=== PATIENT | female | born 1970 | race Hispanic/Latino ===

== ENCOUNTER 2016-12-17 15:52 | Emergency (ER) | payer BC ==
[2016-12-17 15:53] VITALS: BMI 23.0
[2016-12-17 15:57] VITALS: BP 133/62; PULSE 82; RESP 18; TEMP 98.5; O2SAT 99
--- NOTE | 2016-12-17 16:18 | ED PDOC ---
HPI: Skin/Bite Injury Time Seen by Provider: 12/17/16 16:05 Chief Complaint (Nursing): Abnormal Skin Integrity Chief Complaint (Provider): Abnormal Skin Integrity History Per: Patient History/Exam Limitations: no limitations Onset/Duration Of Symptoms: Days Current Symptoms Are (Timing): Still Present Additional Complaint(s): 46 y/o female presents to the emergency department with a possible abscess located on the right lower side of the back that began about 1 1/2 weeks ago. States she saw Dr. Anguiano on 12/12/2016, who said it was a cyst. Patient was prescribed Amox-Clav 875-125mg and told to return on 12/19/2016 for drainage of the area but pain is too severe. Reports only taking Tylenol for the relief of symptoms because history of ulcers prevents her from taking anything else. Denies any further medical complaints. PMD: Dr. Silvio Dee MD Past Medical History Reviewed: Historical Data, Nursing Documentation, Vital Signs Vital Signs: Last Vital Signs Temp 98.5 F 12/17/16 15:55 Pulse 82 12/17/16 15:55 Resp 18 12/17/16 15:55 BP 133/62 12/17/16 15:55 Pulse Ox 99 12/17/16 16:26 - Medical History PMH: Anemia, Migraine Denies: Chronic Kidney Disease - Surgical History Surgical History: No Surg Hx - Family History Family History: States: Unknown Family Hx - Home Medications Home Medications: Ambulatory Orders Medication Instructions Recorded traMADol [Ultram] 50 mg PO Q6H PRN #15 tab 12/17/16 - Allergies Allergies/Adverse Reactions: Allergies Allergy/AdvReac Type Severity Reaction Status Date / Time No Known Allergies Allergy Verified 12/17/16 15:55 Review of Systems ROS Statement: Except As Marked, All Systems Reviewed And Found Negative ( Abscess on the right lower back) Skin: Positive for: Other Physical Exam - Reviewed Nursing Documentation Reviewed: Yes Vital Signs Reviewed: Yes - Physical Exam Appears: Positive for: Non-toxic, No Acute Distress Head Exam: Positive for: ATRAUMATIC, NORMAL INSPECTION, NORMOCEPHALIC Skin: Positive for: Normal Color, Warm, Dry Neck: Positive for: Normal, Supple Back: Positive for: Other (3cm x 6cm indurated area of the right lower side of the back with tenderness. No surrounding erythema. ). Negative for: Normal Inspection Neurologic/Psych: Positive for: Alert, Oriented - ECG O2 Sat by Pulse Oximetry: 99 (RA) Pulse Ox Interpretation: Normal Medical Decision Making Medical Decision Making: Time: 16:05 Initial Impression: Abscess Initial Plan: --Tramadol 100 mg PO - Unable to take because patient is driving. --Patient was advised that Tramadol would not interfere or affect gastric ulcers. Pt has appointment in 2 days with PMD who prescribed antibiotic for her "cyst". Scribe Attestation: Documented by Vi Lr, acting as a scribe for Estefani Oquendo PA-C. Provider Scribe Attestation: All medical record entries made by the Scribe were at my direction and personally dictated by me. I have reviewed the chart and agree that the record accurately reflects my personal performance of the history, physical exam, medical decision making, and the department course for this patient. I have also personally directed, reviewed, and agree with the discharge instructions and disposition. Disposition - Clinical Impression Clinical Impression: Abscess - Patient ED Disposition Is Patient to be Admitted: No Counseled Patient/Family Regarding: Diagnosis, Need For Followup, Rx Given - Disposition Referrals: [facility] [Outside] Disposition: Routine/Home Disposition Time: 16:36 Condition: GOOD Additional Instructions: Warm compresses every few hours. Follow-up with PMD Sunday. Prescriptions: traMADol [Ultram] 50 mg PO Q6H PRN #15 tab PRN Reason: Pain Instructions: Abscess (ED) Forms: [facility] School/Work Excuse
== END 2016-12-17 16:37 | disposition home or self-care (01) ==
LOC: H.ER 15:52
DX: L02.212 Cutaneous abscess of back [any part, except buttock and flank] (principal)

== ENCOUNTER 2017-09-21 06:49 | Inpatient (IN) | payer BC ==
[2017-09-21 06:49] VITALS: BMI 23.0
--- NOTE | 2017-09-21 07:50 | ED PDOC ---
Syncope/Near Syncope/Dizziness Time Seen by Provider: 09/21/17 07:14 Chief Complaint (Nursing): Syncope Chief Complaint (Provider): Syncope History Per: Patient History/Exam Limitations: no limitations Onset/Duration Of Symptoms: Sudden Onset Current Symptoms Are (Timing): Still Present Additional Complaint(s): 47 year old female with medical history of anemia, migraine and hypercholesterolemia, presents to the emergency department for sudden onset of near syncope associated with room spins, vomiting, headaches and abdominal pain prior to arrival. Denied any bloody stools or prior episodes. Patient noted to have vomited once in ED. PMD: Silvio Dee MD Past Medical History Reviewed: Historical Data, Nursing Documentation, Vital Signs Vital Signs: Last Vital Signs Temp 98.2 F 09/21/17 06:57 Pulse 69 09/21/17 07:03 Resp 14 09/21/17 07:03 BP 157/91 H 09/21/17 07:03 Pulse Ox 99 09/21/17 07:03 - Medical History PMH: Anemia, Gastrointestinal Ulcer, Migraine Denies: Chronic Kidney Disease - Surgical History Surgical History: No Surg Hx - Family History Family History: States: Unknown Family Hx - Social History Current smoker - smoking cessation education provided: No Ex-Smoker (has not smoked in the last 12 months): No Alcohol: None Drugs: Denies - Home Medications Home Medications: Ambulatory Orders Medication Instructions Recorded traMADol [Ultram] 50 mg PO Q6H PRN #15 tab 12/17/16 - Allergies Allergies/Adverse Reactions: Allergies Allergy/AdvReac Type Severity Reaction Status Date / Time No Known Allergies Allergy Verified 12/17/16 15:55 Review of Systems ROS Statement: Except As Marked, All Systems Reviewed And Found Negative Gastrointestinal: Positive for: Vomiting, Abdominal Pain. Negative for: Hematochezia Neurological: Positive for: Headache, Dizziness (with spins) Physical Exam - Reviewed Nursing Documentation Reviewed: Yes Vital Signs Reviewed: Yes - Physical Exam Appears: Positive for: Uncomfortable Head Exam: Positive for: ATRAUMATIC, NORMAL INSPECTION, NORMOCEPHALIC Skin: Positive for: Pallor. Negative for: Normal Color Eye Exam: Positive for: Normal appearance, EOMI, PERRL. Negative for: Nystagmus ENT: Positive for: Normal ENT Inspection, Pharynx Is (within normal limits), TM Is/Are (clear bilaterally) Neck: Positive for: Normal, Supple Cardiovascular/Chest: Positive for: Regular Rate, Rhythm, Chest Non Tender. Negative for: Tachycardia Respiratory: Positive for: Normal Breath Sounds, Decreased Breath Sounds. Negative for: Respiratory Distress Gastrointestinal/Abdominal: Positive for: Normal Exam, Soft. Negative for: Tenderness Extremity: Positive for: Normal ROM (upper/lower). Negative for: Pedal Edema ( bilateral) Neurologic/Psych: Positive for: Alert. Negative for: Motor/Sensory Deficits, Aphasia - Laboratory Results Result Diagrams: 09/21/17 07:45 09/21/17 07:45 - ECG O2 Sat by Pulse Oximetry: 99 (RA) Pulse Ox Interpretation: Normal Medical Decision Making Medical Decision Making: Initial Impression: Near syncope Initial Plan: * CT head without contrast * EKG * BMP * Urine * Urine dipstick * CBC * PTT * PT * Famotidine 30mg IVP * Morphine 2mg IV * Zofran 4mg IVP Time: 904 --CT head FINDINGS: There is no hemorrhage. No edema, midline shift or mass effect is noted. There is normal yang white differentiation. Ventricles, cisterns and sulci are normal for age. Calvarium is unremarkable. Included paranasal sinuses and mastoids are clear. IMPRESSION: No acute cerebral hemorrhage or edema. Scribe Attestation: Documented by Angela Mason, acting as a scribe for Jennifer Barber MD. Provider Scribe Attestation: All medical record entries made by the Scribe were at my direction and personally dictated by me. I have reviewed the chart and agree that the record accurately reflects my personal performance of the history, physical exam, medical decision making, and the department course for this patient. I have also personally directed, reviewed, and agree with the discharge instructions and disposition. Despite all meds give for headache, nausea and dizziness, patient remains symptomatic. is distraught and is suggesting evaluation at another institution. Will admit to Dr. Alejo for intractible dizziness. Disposition - Clinical Impression Clinical Impression: Severe dizziness, Intractable headache - Patient ED Disposition Is Patient to be Admitted: Yes Doctor Will See Patient In The: Hospital - Disposition Disposition: Transfer of Care Disposition Time: 11:00 Condition: GUARDED Forms: [facility] (Ukrainian) - Pt Status Changed To: Hospital Disposition Of: Observation - POA Present On Arrival: None
[2017-09-21 07:59] LABS: BASO # 0.1 K/uL (0.0-0.2); BASO % 0.3 % (0.0-2.0); EOS # 0.1 K/uL (0.0-0.7); EOS % 0.5 % (0.0-4.0); LYMPH # 1.7 K/uL (1.0-4.3); LYMPH % 9.6 % (20.0-40.0); MEAN CELL VOLUME 68.3 fl (81.0-99.0); MEAN CORPUSCULAR HEMOGLOBIN 20.8 pg (27.0-31.0); MEAN CORPUSCULAR HGB CONC 30.5 g/dL (33.0-37.0); MEAN PLATELET VOLUME 7.8 fl (7.2-11.7); MONO # 0.9 K/uL (0.0-0.8); MONO % 4.9 % (0.0-10.0); NEUT # 15.5 K/uL (1.8-7.0); NEUT % 84.7 % (50.0-75.0); PLATELET COUNT 491 K/uL (130-400); RBC 4.32 Mil/uL (3.80-5.20); RED CELL DISTRIBUTION WIDTH 17.7 % (11.5-14.5); WHITE BLOOD COUNT 18.3 K/uL (4.8-10.8)
[2017-09-21 08:08] LABS: PROTHROMBIN TIME 11.3 Seconds (9.8-13.1)
[2017-09-21 08:10] LABS: BLOOD UREA NITROGEN 10 mg/dl (7-17); CALCIUM 9.5 mg/dL (8.4-10.2); GFR AFRICAN-AMERICAN > 60; GFR NON-AFRICAN AMERICAN > 60
--- NOTE | 2017-09-21 09:05 | CT ---
EXAM: CT Head Without Intravenous Contrast EXAM DATE/TIME: 09/21/2017 7:39 AM CLINICAL HISTORY: 47 years old, female; Pain; Headache; Tension; Additional info: Severe WRIGHT TECHNIQUE: Axial computed tomography images of the head/brain without intravenous contrast. All CT scans at this facility use one or more dose reduction techniques, viz.: automated exposure control; ma/kV adjustment per patient size (including targeted exams where dose is matched to indication; i.e. head); or iterative reconstruction technique. Coronal and sagittal reformatted images were created and reviewed. COMPARISON: CT - HEAD W/O CONTRAST 2015-11-26 16:11 FINDINGS: There is no hemorrhage. No edema, midline shift or mass effect is noted. There is normal yang white differentiation. Ventricles, cisterns and sulci are normal for age. Calvarium is unremarkable. Included paranasal sinuses and mastoids are clear. IMPRESSION: No acute cerebral hemorrhage or edema.
[2017-09-21 10:30] LABS: ANISOCYTOSIS MODERATE; LYMPHOCYTE 9 % (20-50); MICROCYTOSIS SLIGHT; MONOCYTE 4 % (0-10); NEUTROPHIL 87 % (42-75); OVALOCYTES SLIGHT; PLATELET ESTIMATE NORMAL (NORMAL); TOTAL CELLS COUNTED 100
[2017-09-21 10:31] LABS: HYPOCHROMIC SLIGHT; LARGE PLATELETS PRESENT; TEARDROP CELLS SLIGHT
--- NOTE | 2017-09-21 13:12 | CARD ---
APPROVED REPORT EKG Measurement Heart [id number] <Conclusion> Sinus rhythm with premature atrial complexes Otherwise normal ECG
--- NOTE | 2017-09-21 13:40 | MRI ---
PROCEDURE: MRI BRAIN WITHOUT CONTRAST HISTORY: dizziness COMPARISON: Comparison made with prior CT scan of the brain dated 09/21/2017 TECHNIQUE: Multiplanar, multisequence MR images of the brain were obtained without intravenous contrast enhancement. FINDINGS: HEMORRHAGE: Acute parenchymal, subarachnoid or extra-axial hemorrhage. DWI: There are 2 tiny foci of restricted diffusion in the left occipito parietal watershed zone and tiny focus of restricted diffusion left cerebellum left cerebellum consistent with tiny acute infarct changes. BRAIN PARENCHYMA: No mass effect or edema. No atrophy or chronic microvascular ischemic changes. VENTRICLES: No obstructive hydrocephalus. CRANIUM: No acute calvarial fractures. ORBITS: Orbits and contents unremarkable. PARANASAL SINUSES/MASTOIDS: Clear VASCULAR SYSTEM: Visualized major vascular flow voids at skull base are patent. OTHER FINDINGS: None. IMPRESSION: There are 2 tiny foci of restricted diffusion left occipito parietal watershed zone and with tiny focus of similar signal left cerebellum consistent with tiny acute infarcts. Findings discussed with Dr. Barber approximately 1:25 p.m. with written down and read back verification.
--- NOTE | 2017-09-21 16:06 | CP.PCM.HP ---
Past Patient History - Past Medical History & Family History Past Medical History?: Yes - Past Social History Smoking Status: Never Smoked - CARDIAC Hx Cardiac Disorders: Yes (SEVERE SINUS BRADYCARDIA PRESENTLY BEING EVALUATED BY PCP) - PULMONARY Hx Respiratory Disorders: No - NEUROLOGICAL Hx Migraine: Yes - HEENT Hx Epistaxis: Yes - RENAL Hx Chronic Kidney Disease: No - ENDOCRINE/METABOLIC Hx Endocrine Disorders: No - HEMATOLOGICAL/ONCOLOGICAL Hx Anemia: Yes - INTEGUMENTARY Hx Dermatological Problems: No - MUSCULOSKELETAL/RHEUMATOLOGICAL Hx Falls: No - GASTROINTESTINAL Hx Gastrointestinal Disorders: Yes Hx Ulcer: Yes - GENITOURINARY/GYNECOLOGICAL Hx Genitourinary Disorders: No - PSYCHIATRIC Hx Psychophysiologic Disorder: No Hx Substance Use: No - SURGICAL HISTORY Hx Surgeries: Yes Hx Tubal Ligation: Yes - ANESTHESIA Hx Anesthesia: Yes Hx Anesthesia Reactions: No Hx Malignant Hyperthermia: No Has any member of the family had a problem w/ anesthesia?: No Meds Allergies/Adverse Reactions: Allergies Allergy/AdvReac Type Severity Reaction Status Date / Time No Known Allergies Allergy Verified 12/17/16 15:55 Results - Vital Signs Recent Vital Signs: Last Vital Signs Temp 98.5 F 09/21/17 15:58 Pulse 72 09/21/17 15:58 Resp 18 09/21/17 15:58 BP 160/89 H 09/21/17 15:58 Pulse Ox 97 09/21/17 15:58 - Labs Result Diagrams: 09/21/17 07:45 09/21/17 07:45 Labs: Laboratory Results - last 24 hr 09/21/17 09/21/17 09/21/17 07:45 07:45 07:45 WBC 18.3 H D RBC 4.32 Hgb 9.0 L Hct 29.5 L MCV 68.3 L D MCH 20.8 L MCHC 30.5 L RDW 17.7 H Plt Count 491 H MPV 7.8 Neut % (Auto) 84.7 H Lymph % (Auto) 9.6 L [place] % (Auto) 4.9 Eos % (Auto) 0.5 Baso % (Auto) 0.3 Neut # (Auto) 15.5 H Lymph # (Auto) 1.7 [place] # (Auto) 0.9 H Eos # (Auto) 0.1 Baso # (Auto) 0.1 Neutrophils % (Manual) 87 H Lymphocytes % (Manual) 9 L Monocytes % (Manual) 4 Platelet Estimate Normal Large Platelets Present Hypochromasia (manual) Slight Anisocytosis (manual) Moderate Microcytosis (manual) Slight Macrocytosis (manual) Slight Tear Drop Cells Slight Ovalocytes Slight PT 11.3 INR 1.0 APTT 19.0 L Sodium 143 Potassium 3.3 L Chloride 102 Carbon Dioxide 24 Anion Gap 20 BUN 10 Creatinine 0.8 Est GFR ( Amer) > 60 Est GFR (Non-Af Amer) > 60 Random Glucose 153 H Calcium 9.5
--- NOTE | 2017-09-21 16:06 | CP.PCM.HP ---
History of Present Illness - History of Present Illness History of Present Illness: 47 yrs old female , patient last Sunday was seen in [facility] with CC Headache and pain LUE, treated with Imitrex , Patient was DD and continue working during the week still having headache , dizziness and pain LUE. Today patient was taking a shower and fell for weakness both lower extremities also Patient with severe headache , vertigo ,vomiting , no LOC , Patient was seen in [facility] ER complaining of severe dizziness and severe pain LUE, initial CT Head negative , MRI Brain acute Left Occipito Parietal infarct and Acute Left Cerebellar infarct, Patient initially AD to Telemetry but after transferred to ICU for close observation,case was discussed with Chair Maker ,Neurologist was consulted. PMHx; Migraine , Patient treated by Double Bass Player that recommended to have GILBERT Present on Admission - Present on Admission Any Indicators Present on Admission: No Review of Systems - Constitutional Constitutional: Headache - EENT Eyes: Other (negative) Ears: Other (negative) Nose/Mouth/Throat: Other (negative) - Cardiovascular Cardiovascular: Other (negative) - Respiratory Respiratory: Other (negative) - Gastrointestinal Gastrointestinal: Nausea, Vomiting - Genitourinary Genitourinary: Other (negative) - Musculoskeletal Musculoskeletal: Myalgias (LUE) - Integumentary Integumentary: Other (negative) - Neurological Neurological: Dizziness, Headaches - Psychiatric Psychiatric: Anxiety - Endocrine Endocrine: Other (negative) - Hematologic/Lymphatic Hematologic: Other (negative) Past Patient History - Past Medical History & Family History Past Medical History?: Yes - Past Social History Smoking Status: Never Smoked Home Situation {Lives}: With Family - CARDIAC Hx Cardiac Disorders: Yes (SEVERE SINUS BRADYCARDIA PRESENTLY BEING EVALUATED BY PCP) - PULMONARY Hx Respiratory Disorders: No - NEUROLOGICAL Hx Migraine: Yes - HEENT Hx Epistaxis: Yes - RENAL Hx Chronic Kidney Disease: No - ENDOCRINE/METABOLIC Hx Endocrine Disorders: No - HEMATOLOGICAL/ONCOLOGICAL Hx Anemia: Yes - INTEGUMENTARY Hx Dermatological Problems: No - MUSCULOSKELETAL/RHEUMATOLOGICAL Hx Falls: No - GASTROINTESTINAL Hx Gastrointestinal Disorders: Yes Hx Ulcer: Yes - GENITOURINARY/GYNECOLOGICAL Hx Genitourinary Disorders: No - PSYCHIATRIC Hx Psychophysiologic Disorder: No Hx Substance Use: No - SURGICAL HISTORY Hx Surgeries: Yes Hx Tubal Ligation: Yes - ANESTHESIA Hx Anesthesia: Yes Hx Anesthesia Reactions: No Hx Malignant Hyperthermia: No Has any member of the family had a problem w/ anesthesia?: No Meds Allergies/Adverse Reactions: Allergies Allergy/AdvReac Type Severity Reaction Status Date / Time No Known Allergies Allergy Verified 12/17/16 15:55 Physical Exam - Constitutional Appears: In Acute Distress - Head Exam Head Exam: NORMAL INSPECTION - Eye Exam Additional comments: nistagmus - ENT Exam ENT Exam: Normal Exam - Neck Exam Neck exam: Positive for: Normal Inspection - Respiratory Exam Respiratory Exam: Clear to Auscultation Bilateral - Cardiovascular Exam Cardiovascular Exam: REGULAR RHYTHM, Systolic Murmur (2/6 LSB Ao radiated to neck vessels) - GI/Abdominal Exam GI & Abdominal Exam: Normal Bowel Sounds, Soft - Extremities Exam Extremities exam: Positive for: tenderness (severe LUE with ROM decreased, with coldness sensation distal L forearm , L hand) - Back Exam Back exam: NORMAL INSPECTION - Neurological Exam Neurological exam: Alert, CN II-XII Intact Additional comments: movement LUE restricted due to severe tenderness - Psychiatric Exam Psychiatric exam: Anxious - Skin Additional comments: mild coldness distal LUE Results - Vital Signs Recent Vital Signs: Last Vital Signs Temp 98.5 F 09/21/17 15:58 Pulse 72 09/21/17 15:58 Resp 18 09/21/17 15:58 BP 160/89 H 09/21/17 15:58 Pulse Ox 97 09/21/17 15:58 - Labs Result Diagrams: 09/24/17 06:00 09/24/17 06:00 Labs: Laboratory Results - last 24 hr 09/21/17 09/21/17 09/21/17 07:45 07:45 07:45 WBC 18.3 H D RBC 4.32 Hgb 9.0 L Hct 29.5 L MCV 68.3 L D MCH 20.8 L MCHC 30.5 L RDW 17.7 H Plt Count 491 H MPV 7.8 Neut % (Auto) 84.7 H Lymph % (Auto) 9.6 L [place] % (Auto) 4.9 Eos % (Auto) 0.5 Baso % (Auto) 0.3 Neut # (Auto) 15.5 H Lymph # (Auto) 1.7 [place] # (Auto) 0.9 H Eos # (Auto) 0.1 Baso # (Auto) 0.1 Neutrophils % (Manual) 87 H Lymphocytes % (Manual) 9 L Monocytes % (Manual) 4 Platelet Estimate Normal Large Platelets Present Hypochromasia (manual) Slight Anisocytosis (manual) Moderate Microcytosis (manual) Slight Macrocytosis (manual) Slight Tear Drop Cells Slight Ovalocytes Slight PT 11.3 INR 1.0 APTT 19.0 L Sodium 143 Potassium 3.3 L Chloride 102 Carbon Dioxide 24 Anion Gap 20 BUN 10 Creatinine 0.8 Est GFR ( Amer) > 60 Est GFR (Non-Af Amer) > 60 Random Glucose 153 H Calcium 9.5 Assessment & Plan (1) Acute CVA (cerebrovascular accident) Status: Acute Comment: L Parieto Occipital (2) Acute cerebrovascular accident (CVA) of cerebellum Status: Acute Comment: Left Cerebellum (3) Migraine Status: Acute (4) Severe vertigo Status: Acute (5) Pain of left upper extremity Status: Acute (6) Anemia Status: Chronic - Assessment and Plan (Free Text) Plan: monitor Patient in ICU , ASA , Lipitor, Plavix , Meclizine , Dilaudid , f/u ECHO , Carotid U-S, f/u head , Neck- Head-CTA - Date & Time Date: 09/21/17 Time: 15:30
[2017-09-21] MEDS ORDERED: Lactated Ringer's 1,000 ML IV SCH ×3 (16:30→23:36)
--- NOTE | 2017-09-21 16:36 | CP.PCM.CON ---
History of Present Illness - History of Present Illness History of Present Illness: 47 y/o [facility] with [facility] with dx of migraines presents to [facility] with worsening left arm weakness and MRi brain reveals small infarcts. dr. Alejo requested ICu monitoring for neuro checks. Patient seen and examined at bedside. Patient c/o nystagmus, room spinning and left arm weakness. Review of Systems - Constitutional Additional comments: left arm weakness and room spinning, left arm pain described as cold! Past Patient History - Past Medical History & Family History Past Medical History?: Yes - Past Social History Smoking Status: Never Smoked - CARDIAC Hx Cardiac Disorders: Yes (SEVERE SINUS BRADYCARDIA PRESENTLY BEING EVALUATED BY PCP) - PULMONARY Hx Respiratory Disorders: No - NEUROLOGICAL Hx Migraine: Yes - HEENT Hx Epistaxis: Yes - RENAL Hx Chronic Kidney Disease: No - ENDOCRINE/METABOLIC Hx Endocrine Disorders: No - HEMATOLOGICAL/ONCOLOGICAL Hx Anemia: Yes - INTEGUMENTARY Hx Dermatological Problems: No - MUSCULOSKELETAL/RHEUMATOLOGICAL Hx Falls: No - GASTROINTESTINAL Hx Gastrointestinal Disorders: Yes Hx Ulcer: Yes - GENITOURINARY/GYNECOLOGICAL Hx Genitourinary Disorders: No - PSYCHIATRIC Hx Psychophysiologic Disorder: No Hx Substance Use: No - SURGICAL HISTORY Hx Surgeries: Yes Hx Tubal Ligation: Yes - ANESTHESIA Hx Anesthesia: Yes Hx Anesthesia Reactions: No Hx Malignant Hyperthermia: No Has any member of the family had a problem w/ anesthesia?: No Meds Allergies/Adverse Reactions: Allergies Allergy/AdvReac Type Severity Reaction Status Date / Time No Known Allergies Allergy Verified 12/17/16 15:55 - Medications Medications: Current Medications Atorvastatin Calcium (Lipitor) 20 mg PO DAILY NAIMA Hydromorphone HCl (Dilaudid) 2 mg IVP Q4H PRN PRN Reason: pain 6-8 Last Admin: 09/21/17 16:15 Dose: 2 mg Lactated Ringer's (Lactated Ringer's) 1,000 mls @ 100 mls/hr IV .Q10H NIAMA Meclizine HCl (Antivert) 25 mg PO TID NAIMA Topiramate (Topamax) 50 mg PO BID NAIMA Physical Exam - Head Exam Head Exam: ATRAUMATIC, NORMAL INSPECTION, NORMOCEPHALIC - Eye Exam Additional comments: (+)horizontal nystagmus - Neck Exam Neck exam: Positive for: Full Rom - Respiratory Exam Respiratory Exam: Clear to Auscultation Bilateral, NORMAL BREATHING PATTERN - Cardiovascular Exam Cardiovascular Exam: REGULAR RHYTHM, +S1, +S2, Systolic Murmur - GI/Abdominal Exam GI & Abdominal Exam: Normal Bowel Sounds - Extremities Exam Extremities exam: Positive for: normal capillary refill Results - Vital Signs Recent Vital Signs: Last Vital Signs Temp 98.5 F 09/21/17 15:58 Pulse 72 09/21/17 15:58 Resp 18 09/21/17 15:58 BP 160/89 H 09/21/17 15:58 Pulse Ox 97 09/21/17 15:58 - Labs Result Diagrams: 09/21/17 07:45 09/21/17 07:45 Labs: Laboratory Results - last 24 hr 09/21/17 09/21/17 09/21/17 07:45 07:45 07:45 WBC 18.3 H D RBC 4.32 Hgb 9.0 L Hct 29.5 L MCV 68.3 L D MCH 20.8 L MCHC 30.5 L RDW 17.7 H Plt Count 491 H MPV 7.8 Neut % (Auto) 84.7 H Lymph % (Auto) 9.6 L [place] % (Auto) 4.9 Eos % (Auto) 0.5 Baso % (Auto) 0.3 Neut # (Auto) 15.5 H Lymph # (Auto) 1.7 [place] # (Auto) 0.9 H Eos # (Auto) 0.1 Baso # (Auto) 0.1 Neutrophils % (Manual) 87 H Lymphocytes % (Manual) 9 L Monocytes % (Manual) 4 Platelet Estimate Normal Large Platelets Present Hypochromasia (manual) Slight Anisocytosis (manual) Moderate Microcytosis (manual) Slight Macrocytosis (manual) Slight Tear Drop Cells Slight Ovalocytes Slight PT 11.3 INR 1.0 APTT 19.0 L Sodium 143 Potassium 3.3 L Chloride 102 Carbon Dioxide 24 Anion Gap 20 BUN 10 Creatinine 0.8 Est GFR ( Amer) > 60 Est GFR (Non-Af Amer) > 60 Random Glucose 153 H Calcium 9.5 Assessment & Plan - Assessment and Plan (Free Text) Assessment: -Left arm weakness/pain/paresthesia: chronic since being discahrged from [facility], obtain MRI cervical and thoracic vertebra, obtain vascular dopplers of left upper arm (patient did not allow to examine left arm). -CVA: r/o embolic lesion, check echo with bubble r/o valvular disorder, r/o PFO , cehck carotid dopplers, NIHSS: 3, neurology eval, start oral asa and lipitor if no contraindications -migraine: restart topiramate -Leukocytosis: r/o paravertebral lesion, check procalcitonin, seay culture, serial lactic, rx empirically as paravertebral lesion, consider vanco + ceftriaxone -keep NPO as patient at risk of vomitting during nystagmus -Anemia: check IRon profile, fecal occult blood, h/o PUD protonix q12 -meclizine PRN -dvt ppx (SCDs)/heparin SQ -PUD ppx not indicated. Patient will benefit from ICU level of care for first 24 hours for frequent neuro checks (as reqeusted by private PMD). d/w nursing staff and PMD Patient remains hemodynamically stable. - Date & Time Date: 09/21/17 Time: 16:43
[2017-09-21] MEDS ORDERED: Iodixanol 320 MG/ML 100 ML BOTTLE IV ONE (21:08)
[2017-09-21] MEDS ORDERED: Sodium Chloride 0.9% 100 ML ONE (21:08)
--- NOTE | 2017-09-22 | CT ---
EXAM: CT Angiography Head With Intravenous Contrast CLINICAL HISTORY: 47 years old, female; Signs and symptoms; Vertigo and other: Sudden onset near syncope, dizziness; Additional info: Stroke. Sent phy. Doc. TECHNIQUE: Axial computed tomographic angiography images of the head with intravenous contrast using CT angiography protocol. All CT scans at this facility use one or more dose reduction techniques, viz.: automated exposure control; ma/kV adjustment per patient size (including targeted exams where dose is matched to indication; i.e. head); or iterative reconstruction technique. MIP reconstructed images were created and reviewed. Coronal and sagittal reformatted images were created and reviewed. CONTRAST: 80 mL of administered intravenously. COMPARISON: No relevant prior studies available. FINDINGS: There is occlusion of the left vertebral artery at the level of C1 and the occipital condyles with reconstitution distally (coronal series 605, images 92 through 105). The basilar artery is patent. The posterior cerebral arteries are patent. The internal carotid arteries are normal without significant stenosis or occlusion. The anterior and middle cerebral arteries are patent. Small acute infarcts in the left parietal occipital region and left cerebellum demonstrated on MRI are not visualized. IMPRESSION: Occluded distal left vertebral artery as described above and in the CT neck report. EXAM: CT Angiography Neck With Intravenous Contrast EXAM DATE/TIME: 09/21/2017 6:20 PM CLINICAL HISTORY: 47 years old, female; Signs and symptoms; Vertigo and other: Sudden onset near syncope, dizziness; Additional info: Stroke. Sent phy. Doc. TECHNIQUE: Axial computed tomographic angiography images of the neck with intravenous contrast using CT angiography protocol. All CT scans at this facility use one or more dose reduction techniques, viz.: automated exposure control; ma/kV adjustment per patient size (including targeted exams where dose is matched to indication; i.e. head); or iterative reconstruction technique. MIP reconstructed images were created and reviewed. Coronal and sagittal reformatted images were created and reviewed. CONTRAST: 80 mL of [id number] administered intravenously. COMPARISON: CT - HEAD W/O CONTRAST 2017-09-21 07:50 FINDINGS: The ascending aorta measures 3.5 cm in maximal dimensions. There is thrombus within the proximal left subclavian artery extending a segment of 2.5 cm. The thrombus occupies a large portion of the lumen however there is a rim of contrast surrounding the thrombus (thus nonocclusive) and the subclavian artery is well opacified distal to the thrombus. There is a slightly dominant right vertebral artery. No significant stenosis or occlusion of the right vertebral artery. There is occlusion of the distal left vertebral artery at the level of the occipital condyle and C1 however it is opacified just proximal to the merging with the right vertebral artery to form the basilar artery (coronal series 605 image 93 and axial series 3 image 99). The common carotid arteries are patent bilaterally without significant stenosis or occlusion. The visualized internal carotid arteries are patent. 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 Occlusion of the distal left vertebral artery as described above.
[2017-09-22] MEDS ORDERED: Enoxaparin 80 mg Syringe SC STA (00:26)
--- NOTE | 2017-09-22 00:33 | CP.PCM.PN ---
Subjective - Date & Time of Evaluation Date of Evaluation: 09/22/17 Time of Evaluation: 00:32 - Subjective Subjective: EXAM: CT Angiography Neck With Intravenous Contrast EXAM DATE/TIME: 09/21/2017 6:20 PM FINDINGS: The ascending aorta measures 3.5 cm in maximal dimensions. There is thrombus within the proximal left subclavian artery extending a segment of 2.5 cm. The thrombus occupies a large portion of the lumen however there is a rim of contrast surrounding the thrombus (thus nonocclusive) and the subclavian artery is well opacified distal to the thrombus. There is a slightly dominant right vertebral artery. No significant stenosis or occlusion of the right vertebral artery. There is occlusion of the distal left vertebral artery at the level of the occipital condyle and C1 however it is opacified just proximal to the merging with the right vertebral artery to form the basilar artery (coronal series 605 image 93 and axial series 3 image 99). The common carotid arteries are patent bilaterally without significant stenosis or occlusion. The visualized internal carotid arteries are patent. 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 Occlusion of the distal left vertebral artery as described above. Plan: - Patient started on Lovenox Objective - Vital Signs/Intake and Output Vital Signs (last 24 hours): Temp Pulse Resp BP Pulse Ox 98.5 F 72 18 160/89 H 97 09/21/17 15:58 09/21/17 15:58 09/21/17 15:58 09/21/17 15:58 09/21/17 15:58 - Medications Medications: Current Medications Aspirin (Aspirin) 325 mg PO DAILY [facility] Last Admin: 09/21/17 17:45 Dose: 325 mg Atorvastatin Calcium (Lipitor) 20 mg PO DAILY [facility] Last Admin: 09/21/17 17:46 Dose: 20 mg Clopidogrel Bisulfate (Plavix) 75 mg PO DAILY [facility] Last Admin: 09/21/17 23:48 Dose: 75 mg Enoxaparin Sodium (Lovenox) 70 mg SC STAT [facility] PRN Reason: Protocol Stop: 09/22/17 00:27 Enoxaparin Sodium (Lovenox) 70 mg SC Q12 [facility] PRN Reason: Protocol Hydromorphone HCl (Dilaudid) 2 mg IVP Q4H PRN PRN Reason: pain 6-8 Last Admin: 09/21/17 21:50 Dose: 2 mg Lactated Ringer's (Lactated Ringer's) 1,000 mls @ 100 mls/hr IV .Q10H [facility] Last Admin: 09/21/17 23:51 Dose: 100 mls/hr Meclizine HCl (Antivert) 25 mg PO TID [facility] Last Admin: 09/21/17 17:46 Dose: 25 mg Topiramate (Topamax) 50 mg PO BID [facility] Last Admin: 09/21/17 17:46 Dose: 50 mg - Labs Labs: 09/21/17 07:45 09/21/17 07:45 PT 11.3 Seconds (9.8-13.1) 09/21/17 07:45 INR 1.0 (0.9-1.2) 09/21/17 07:45 APTT 19.0 Seconds (25.6-37.1) L 09/21/17 07:45
[2017-09-22] MEDS ORDERED: Heparin 25,000units in D5W 25,000 UNITS/250 ML BAG IV SCH (01:00)
[2017-09-22] MEDS: Heparin 25,000units in D5W 25,000 UNITS/250 ML BAG IV SCH ×2 (01:32→23:03)
[2017-09-22 02:23] LABS: BARBITURATES, UR NEGATIVE (NEGATIVE); BENZODIAZEPINES, UR NEGATIVE (NEGATIVE); OPIATES, UR POSITIVE (NEGATIVE); PHENCYCLIDINE, UR NEGATIVE (NEGATIVE)
[2017-09-22] MEDS: Lactated Ringer's 1,000 ML IV SCH ×3 (03:20→23:00)
--- NOTE | 2017-09-22 04:26 | CP.PCM.CON ---
History of Present Illness - History of Present Illness History of Present Illness: Vascular Surgery Consult Note for Dr. Piper Reason for consult: proximal Left subclavian artery thrombis 47 F with PMH of Systolic Heart Murmur and HLD presents to [facility] for complaint of vertigo and left arm weakness. Patient states that symptoms began 1 week ago on Sunday. She initially thought it was a migraine since she is susceptible to them. Patient waited 2 days before being [place] [facility] She was evaluated and was told that her symptoms were due to a migraine so she was discharged from their ED. The next day, patient returned to work and continued to do so until yesterday when she decided to be evaluated at [facility] ED for persistent and worsening symptoms. Patient admits to one episode of nausea/ vomiting (NBNB) two days ago. She is also complaining of left arm pain. She rates pain as moderate to severe. She describes the pain as constant as sharp located in entire left arm without radiation. Denies any alleviating/ exacerbating factors. Admits to headache an dizziness/lightheadedness. Denies syncope, fever/chills, chest pain, SOB, abdominal pain, diarrhea, incontinence, urinary symptoms. MRA head/neck reveals occluded distal left vertebral artery and proximal left subclavian artery thrombis. MRI brain demonstrates Small acute infarcts in the left parietal occipital region and left cerebellum. 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 [employer] Review of Systems - Review of Systems All systems: reviewed and no additional remarkable complaints except (as per HPI ) Past Patient History - Past Medical History & Family History Past Medical History?: Yes - Past Social History Smoking Status: Never Smoked Home Situation {Lives}: With Family - CARDIAC Hx Cardiac Disorders: Yes (SEVERE SINUS BRADYCARDIA PRESENTLY BEING EVALUATED BY PCP) - PULMONARY Hx Respiratory Disorders: No - NEUROLOGICAL Hx Migraine: Yes - HEENT Hx Epistaxis: Yes - RENAL Hx Chronic Kidney Disease: No - ENDOCRINE/METABOLIC Hx Endocrine Disorders: No - HEMATOLOGICAL/ONCOLOGICAL Hx Anemia: Yes - INTEGUMENTARY Hx Dermatological Problems: No - MUSCULOSKELETAL/RHEUMATOLOGICAL Hx Falls: No - GASTROINTESTINAL Hx Gastrointestinal Disorders: Yes Hx Ulcer: Yes - GENITOURINARY/GYNECOLOGICAL Hx Genitourinary Disorders: No - PSYCHIATRIC Hx Psychophysiologic Disorder: No Hx Substance Use: No - SURGICAL HISTORY Hx Surgeries: Yes Hx Tubal Ligation: Yes - ANESTHESIA Hx Anesthesia: Yes Hx Anesthesia Reactions: No Hx Malignant Hyperthermia: No Has any member of the family had a problem w/ anesthesia?: No Meds Allergies/Adverse Reactions: Allergies Allergy/AdvReac Type Severity Reaction Status Date / Time No Known Allergies Allergy Verified 12/17/16 15:55 - Medications Medications: Current Medications Aspirin (Aspirin) 325 mg PO DAILY [facility] Last Admin: 09/21/17 17:45 Dose: 325 mg Atorvastatin Calcium (Lipitor) 20 mg PO DAILY [facility] Last Admin: 09/21/17 17:46 Dose: 20 mg Clopidogrel Bisulfate (Plavix) 75 mg PO DAILY [facility] Last Admin: 09/21/17 23:48 Dose: 75 mg Famotidine (Pepcid) 20 mg IVP Q12 [facility] Hydromorphone HCl (Dilaudid) 2 mg IVP Q4H PRN PRN Reason: pain 6-8 Last Admin: 09/21/17 21:50 Dose: 2 mg Heparin Sodium/Dextrose (Heparin 25,000 Units/250ml In D5w) 25,000 units in 250 mls @ 12 mls/hr IV .[id number] [facility] PRN Reason: Protocol Last Admin: 09/22/17 01:32 Dose: 12 mls/hr Lactated Ringer's (Lactated Ringer's) 1,000 mls @ 125 mls/hr IV .Q8H [facility] Meclizine HCl (Antivert) 25 mg PO TID [facility] Last Admin: 09/21/17 17:46 Dose: 25 mg Topiramate (Topamax) 50 mg PO BID [facility] Last Admin: 09/21/17 17:46 Dose: 50 mg Physical Exam - Constitutional Appears: No Acute Distress - Head Exam Head Exam: ATRAUMATIC, NORMOCEPHALIC - Eye Exam Eye Exam: EOMI, Normal appearance Pupil Exam: PERRL Additional comments: eye exam limited due to patient's vertigo and inability to keep eyes open - ENT Exam ENT Exam: Mucous Membranes Moist - Neck Exam Neck exam: Negative for: Tenderness - Respiratory Exam Respiratory Exam: NORMAL BREATHING PATTERN - Cardiovascular Exam Cardiovascular Exam: REGULAR RHYTHM - GI/Abdominal Exam GI & Abdominal Exam: Distended (mildly), Normal Bowel Sounds, Soft. absent: Firm, Guarding, Hernia, Mass, Rebound, Rigid, Tenderness - Extremities Exam Extremities exam: Positive for: normal capillary refill, pedal pulses present. Negative for: calf tenderness Additional comments: LUE: sensation intact, 2-3/5 strength, faint radial pulse, +ulnar pulse, skin is warm - Back Exam Back exam: absent: CVA tenderness (L), CVA tenderness (R) - Neurological Exam Neurological exam: Alert, CN II-XII Intact, Oriented x3 - Expanded Neurological Exam Expanded Patient oriented to: person, place, time Speech: Fluid Speech Cranial nerves: EOM's Intact: Normal, Facial Palsey w/Forehead Movement: Normal , Facial Palsey w/o Forehead Movement: Normal, Facial Sensation: Normal, Gag Reflex: Normal, Tongue Deviation: Normal Neuro motor strength exam: Left Upper Extremity: 0, Right Upper Extremity: 5, Left Lower Extremity: 5, Right Lower Extremity: 5 Coma Scale Eye Opening: SPONTANEOUS Coma Scale Motor Response: OBEYS COMMANDS Coma Scale Verbal: Oriented Coma Scale Total: 15 - Psychiatric Exam Psychiatric exam: Normal Affect, Normal Mood - Skin Skin Exam: Dry, Intact, Normal Color, Warm Results - Vital Signs Recent Vital Signs: Last Vital Signs Temp 99.4 F 09/22/17 04:00 Pulse 74 09/22/17 04:00 Resp 9 L 09/22/17 04:00 BP 152/86 H 09/22/17 04:00 Pulse Ox 100 09/22/17 04:00 - Labs Result Diagrams: 09/22/17 04:42 09/22/17 04:42 Labs: Laboratory Results - last 24 hr 09/21/17 09/21/17 09/21/17 07:45 07:45 07:45 WBC 18.3 H D RBC 4.32 Hgb 9.0 L Hct 29.5 L MCV 68.3 L D MCH 20.8 L MCHC 30.5 L RDW 17.7 H Plt Count 491 H MPV 7.8 Neut % (Auto) 84.7 H Lymph % (Auto) 9.6 L [place] % (Auto) 4.9 Eos % (Auto) 0.5 Baso % (Auto) 0.3 Neut # (Auto) 15.5 H Lymph # (Auto) 1.7 [place] # (Auto) 0.9 H Eos # (Auto) 0.1 Baso # (Auto) 0.1 Neutrophils % (Manual) 87 H Lymphocytes % (Manual) 9 L Monocytes % (Manual) 4 Platelet Estimate Normal Large Platelets Present Hypochromasia (manual) Slight Anisocytosis (manual) Moderate Microcytosis (manual) Slight Macrocytosis (manual) Slight Tear Drop Cells Slight Ovalocytes Slight PT 11.3 INR 1.0 APTT 19.0 L Sodium 143 Potassium 3.3 L Chloride 102 Carbon Dioxide 24 Anion Gap 20 BUN 10 Creatinine 0.8 Est GFR ( Amer) > 60 Est GFR (Non-Af Amer) > 60 POC Glucose (mg/dL) Random Glucose 153 H Calcium 9.5 Troponin I Procalcitonin Urine Opiates Screen Urine Methadone Screen Ur Barbiturates Screen Ur Phencyclidine Scrn Ur Amphetamines Screen U Benzodiazepines Scrn U Oth Cocaine Metabols U Cannabinoids Screen 09/21/17 09/21/17 09/22/17 16:11 16:28 01:30 WBC RBC Hgb Hct MCV MCH MCHC RDW Plt Count MPV Neut % (Auto) Lymph % (Auto) [place] % (Auto) Eos % (Auto) Baso % (Auto) Neut # (Auto) Lymph # (Auto) [place] # (Auto) Eos # (Auto) Baso # (Auto) Neutrophils % (Manual) Lymphocytes % (Manual) Monocytes % (Manual) Platelet Estimate Large Platelets Hypochromasia (manual) Anisocytosis (manual) Microcytosis (manual) Macrocytosis (manual) Tear Drop Cells Ovalocytes PT INR APTT Sodium Potassium Chloride Carbon Dioxide Anion Gap BUN Creatinine Est GFR ( Amer) Est GFR (Non-Af Amer) POC Glucose (mg/dL) Random Glucose Calcium Troponin I < 0.0120 Procalcitonin 0.11 L Urine Opiates Screen Positive H Urine Methadone Screen Negative Ur Barbiturates Screen Negative Ur Phencyclidine Scrn Negative Ur Amphetamines Screen Negative U Benzodiazepines Scrn Negative U Oth Cocaine Metabols Negative U Cannabinoids Screen Negative 09/22/17 03:48 WBC RBC Hgb Hct MCV MCH MCHC RDW Plt Count MPV Neut % (Auto) Lymph % (Auto) [place] % (Auto) Eos % (Auto) Baso % (Auto) Neut # (Auto) Lymph # (Auto) [place] # (Auto) Eos # (Auto) Baso # (Auto) Neutrophils % (Manual) Lymphocytes % (Manual) Monocytes % (Manual) Platelet Estimate Large Platelets Hypochromasia (manual) Anisocytosis (manual) Microcytosis (manual) Macrocytosis (manual) Tear Drop Cells Ovalocytes PT INR APTT Sodium Potassium Chloride Carbon Dioxide Anion Gap BUN Creatinine Est GFR ( Amer) Est GFR (Non-Af Amer) POC Glucose (mg/dL) 101 Random Glucose Calcium Troponin I Procalcitonin Urine Opiates Screen Urine Methadone Screen Ur Barbiturates Screen Ur Phencyclidine Scrn Ur Amphetamines Screen U Benzodiazepines Scrn U Oth Cocaine Metabols U Cannabinoids Screen Assessment & Plan - Assessment and Plan (Free Text) Plan: 47 F who presents with Left arm weakness and vertigo found to have occluded distal left vertebral artery and proximal left subclavian artery thrombis on MRA MRI brain shows Small acute infarcts in the left parietal occipital region and left cerebellum -Heparin drip -Transthoracic ECHO, my need GILBERT as well -f/u Neurology/Interventional Neurology recommendations -Analgesics PRN -No vascular surgery intervention at this time -Discussed with Dr. Feliz Staton PGY1 - Date & Time Date: 09/22/17 Time: 04:30
[2017-09-22 06:07] LABS: HEMOGLOBIN 8.4 g/dL (12.0-16.0); MEAN CELL VOLUME 68.4 fl (81.0-99.0); MEAN CORPUSCULAR HEMOGLOBIN 20.6 pg (27.0-31.0); MEAN CORPUSCULAR HGB CONC 30.1 g/dL (33.0-37.0); RBC 4.05 Mil/uL (3.80-5.20); RED CELL DISTRIBUTION WIDTH 17.7 % (11.5-14.5); WHITE BLOOD COUNT 16.2 K/uL (4.8-10.8)
[2017-09-22 06:59] LABS: IRON 29 ug/dL (37-170)
[2017-09-22 07:09] LABS: % IRON SATURATION 8 % (20-55); TOTAL IRON BINDING CAPACITY 367 ug/dL (250-450)
[2017-09-22 07:16] LABS: BLOOD UREA NITROGEN 6 mg/dl (7-17); CALCIUM 9.5 mg/dL (8.4-10.2); GFR AFRICAN-AMERICAN > 60; GFR NON-AFRICAN AMERICAN > 60
[2017-09-22 07:31] LABS: FERRITIN 6.5 ng/Ml (6.24-137.0)
[2017-09-22] MEDS ORDERED: Enoxaparin 80 mg Syringe SC SCH (09:00)
--- NOTE | 2017-09-22 09:09 | CP.PCM.PN ---
Subjective - Date & Time of Evaluation Date of Evaluation: 09/22/17 Time of Evaluation: 09:02 - Subjective Subjective: Patient seen and examiend at bedside. Patient states she feels slightly better, dizziness is better (but still there), vision disturbance, (tilted visual field) , able to move left arm, pain less. Objective - Vital Signs/Intake and Output Vital Signs (last 24 hours): Temp Pulse Resp BP Pulse Ox 98.6 F 93 H 9 L 149/69 99 09/22/17 08:41 09/22/17 08:41 09/22/17 08:41 09/22/17 08:41 09/22/17 08:41 Intake and Output: 09/22/17 09/22/17 06:59 18:59 Intake Total 200 Balance 200 - Medications Medications: Current Medications Aspirin (Aspirin) 325 mg PO DAILY [facility] Last Admin: 09/21/17 17:45 Dose: 325 mg Atorvastatin Calcium (Lipitor) 20 mg PO DAILY [facility] Last Admin: 09/22/17 08:28 Dose: 20 mg Clopidogrel Bisulfate (Plavix) 75 mg PO DAILY [facility] Last Admin: 09/22/17 08:28 Dose: 75 mg Famotidine (Famotidine) 20 mg IVP Q12 [facility] Last Admin: 09/22/17 08:32 Dose: 20 mg Hydromorphone HCl (Dilaudid) 2 mg IVP Q4H PRN PRN Reason: pain 6-8 Last Admin: 09/22/17 05:16 Dose: 2 mg Heparin Sodium/Dextrose (Heparin 25,000 Units/250ml In D5w) 25,000 units in 250 mls @ 12 mls/hr IV .[id number] [facility] PRN Reason: Protocol Last Admin: 09/22/17 01:32 Dose: 12 mls/hr Lactated Ringer's (Lactated Ringer's) 1,000 mls @ 125 mls/hr IV .Q8H [facility] Last Admin: 09/22/17 03:20 Dose: 125 mls/hr Meclizine HCl (Antivert) 25 mg PO TID [facility] Last Admin: 09/22/17 08:27 Dose: 25 mg Sucralfate (Carafate Oral Susp) 1 gm PO QID [facility] Topiramate (Topamax) 50 mg PO BID [facility] Last Admin: 09/22/17 08:28 Dose: 50 mg - Labs Labs: 09/22/17 04:42 09/22/17 04:42 PT 11.3 Seconds (9.8-13.1) 09/21/17 07:45 INR 1.0 (0.9-1.2) 09/21/17 07:45 APTT 76.7 Seconds (25.6-37.1) H D 09/22/17 07:41 - Constitutional Appears: Well, Non-toxic - Head Exam Head Exam: ATRAUMATIC, NORMAL INSPECTION - Eye Exam Eye Exam: EOMI Pupil Exam: NORMAL ACCOMODATION, PERRL - ENT Exam ENT Exam: Mucous Membranes Moist - Neck Exam Neck Exam: absent: Meningismus - Respiratory Exam Respiratory Exam: NORMAL BREATHING PATTERN - Cardiovascular Exam Cardiovascular Exam: REGULAR RHYTHM, +S1, +S2, +S4, Murmur - GI/Abdominal Exam GI & Abdominal Exam: Soft, Normal Bowel Sounds - Extremities Exam Additional comments: left arm normal inspection Assessment and Plan - Assessment and Plan (Free Text) Plan: -CVA with posterior vertebral symptoms with possible thrombotic and/or thromboembolic etiology: currently on DAPT, heparin, statin, neurology eval, possible neurointerventional eval, echo pending, obtain heme/onc consult for anti-phospholipid syndrome, check RPR and anti-phospholids and other prothrobotic lesions -Anemia: will benefit from oral iron sulfate tablet -h/o PUD: continue ant-acid with sucrafate -dvt px on Iv heparin -PUD ppx pepcid -migraine: topiramate (no headaches on examination) Patient was informed of the risks, benefits and alternatives of anticoagulation with antiplatelet therapy in light of previous history of PUD (requiring 3 units of blood). Patient verbalized "treat my stroke and transfuse more if my blood levels drops" Patient remains hemodynamically stable. Monitor for Gi bleeding and maximize PUD therapy.
[2017-09-22 09:40] LABS: HEMOGLOBIN 8.5 g/dL (12.0-16.0); MEAN CELL VOLUME 69.4 fl (81.0-99.0); MEAN CORPUSCULAR HEMOGLOBIN 20.9 pg (27.0-31.0); MEAN CORPUSCULAR HGB CONC 30.1 g/dL (33.0-37.0); RBC 4.06 Mil/uL (3.80-5.20); RED CELL DISTRIBUTION WIDTH 17.7 % (11.5-14.5); WHITE BLOOD COUNT 14.4 K/uL (4.8-10.8)
[2017-09-22 09:43] LABS: ALBUMIN 3.9 g/dL (3.5-5.0); ALT/SGPT 40 U/L (9-52); AST/SGOT 32 U/L (14-36); BLOOD UREA NITROGEN 6 mg/dl (7-17); CALCIUM 9.3 mg/dL (8.4-10.2); GFR AFRICAN-AMERICAN > 60; GFR NON-AFRICAN AMERICAN > 60; HDL CHOLESTEROL 33 MG/DL (30-70)
[2017-09-22 09:58] LABS: LDL CHOLESTEROL 155 mg/dL (0-129)
--- NOTE | 2017-09-22 10:43 | US ---
PROCEDURE: Duplex ultrasound of the carotid and vertebral arteries. HISTORY: stroke protocol COMPARISON: None available. TECHNIQUE: Grayscale and duplex Doppler evaluation of the cervical carotid and vertebral arteries were performed. The common carotid, carotid bifurcations and cervical ICA and proximal ECA were evaluated. The vertebral arteries were evaluated for gross patency and direction. FINDINGS: RIGHT CAROTID ARTERIES: Common Carotid Artery: Normal. Maximal flow velocity of 79.4 cm/s. Carotid Bifurcation: Intimal thickening is present Internal Carotid Artery:Heterogeneous plaque formation. Maximal flow velocity of 119.6 cm/s. External Carotid Artery (proximal branches): Normal. Maximal flow velocity of 76.3 cm/s. ICA/CCA Ratio: 1.5 LEFT CAROTID ARTERIES: Common Carotid Artery: Normal. Maximal flow velocity of 96.3 cm/s. Carotid Bifurcation: Intimal thickening is present. Internal Carotid Artery:Heterogeneous plaque formation. Maximal flow velocity of 92.2 cm/s. External Carotid Artery (proximal branches): Normal. Maximal flow velocity of 131.4 cm/s. ICA/CCA Ratio: 1.1 VERTEBRAL ARTERIES: Right Vertebral Artery: Patent. Antegrade flow. Left Vertebral Artery: Patent. Antegrade flow. OTHER FINDINGS: None. IMPRESSION: Right ICA degree of stenosis: Less than 50% Left ICA degree of stenosis: Less than 50% Reference Internal Carotid Artery (ICA) Peak Systolic Velocity (PSV) for above: 1. Less than 50% stenosis less than 125 cm/s peak systolic velocity 2. 50-69% stenosis 125-230cm/s peak systolic velocity 3. Greater than 70% but less than near occlusion greater than 230 cm/s peak systolic velocity
[2017-09-22 10:58] LABS: T4 10.7 ug/dl (5.5-11.0)
--- NOTE | 2017-09-22 13:22 | CARD ---
APPROVED REPORT EXAM: Two-dimensional and M-mode echocardiogram with Doppler and color Doppler. Other Information Quality : GoodRhythm : NSR INDICATION Dizziness and Vertigo 2D DIMENSIONS IVSd1.08 (0.7-1.1cm)LVDd3.43 (3.9-5.9cm) LVOT Diameter3.35 (1.8-2.4cm)PWd1.17 (0.7-1.1cm) IVSs1.20 (0.8-1.2cm)LVDs2.58 (2.5-4.0cm) FS (%) 24.6 %PWs1.12 (0.8-1.2cm) M-Mode DIMENSIONS Left Atrium (MM)3.08 (2.5-4.0cm)IVSd0.86 (0.7-1.1cm) Aortic Root2.80 (2.2-3.7cm)LVDd4.13 (4.0-5.6cm) Aortic Cusp Exc.1.74 (1.5-2.0cm)PWd1.08 (0.7-1.1cm) IVSs1.31 cmFS (%) 36 % LVDs2.65 (2.0-3.8cm)PWs1.39 cm Mitral Valve MV E Qdguaslh834.2cm/sMV DECEL [id number] A Cbaekpbt22.0cm/s MV UVH07fcW/A ratio1.6MVA (PHT)4.47cm2 TDI Lateral E' Peak V12.22cm/sMedial E' Peak V7.33cm/sE/Lateral E'8.4 E/Medial E'14.1 Pulmonary Valve PV Peak Hvpyavif610.8cm/s LEFT VENTRICLE The left ventricle is normal size. There is normal left ventricular wall thickness. The left ventricular function is normal. The left ventricular ejection fraction is within the normal range. The Ejection Fraction is 55-60%. There is normal LV segmental wall motion. The left ventricular diastolic function is normal. No left ventricle thrombus noted on this study. There is no ventricular septal defect visualized. RIGHT VENTRICLE The right ventricle is normal size. There is normal right ventricular wall thickness. The right ventricular systolic function is normal. ATRIA The left atrium size is normal. The right atrium size is normal. The interatrial septum is intact with no evidence for an atrial septal defect. AORTIC VALVE The aortic valve is normal in structure. No aortic regurgitation is present. There is no aortic valvular stenosis. MITRAL VALVE The mitral valve is normal in structure. There is no mitral valve stenosis. There is no mitral valve regurgitation noted. TRICUSPID VALVE The tricuspid valve is normal in structure. There is no tricuspid valve regurgitation noted. There is no tricuspid valve stenosis. PULMONIC VALVE The pulmonary valve is normal in structure. There is no pulmonic valvular regurgitation. GREAT VESSELS The aortic root is normal in size. The IVC is normal in size and collapses >50% with inspiration. PERICARDIAL EFFUSION The pericardium appears normal. <Conclusion> The left ventricle is normal size. The left ventricular function is normal. The left ventricular ejection fraction is within the normal range. The Ejection Fraction is 55-60%.
--- NOTE | 2017-09-22 13:28 | CP.PCM.CON ---
History of Present Illness - History of Present Illness History of Present Illness: 47 yr old woman who came in with dizziness, headache, and severe left upper extremity pain and weakness starting 6 days ago. As per , she was found down in the shower and was [place] [facility] [place] treated only for migraine and discharged. Patient has been treated for recurrent migraines, without evaluation. For the last several days, her dizziness and left shoulder pain has been getting progressively worse. Since admission, we have not been able to examine her left arm due to pain but she is able to lift up her left arm. PMH/PSH: No dm, no htn, migraines. Fh/SH: Mother has afib, and had stroke at a young age, with anticoagulation. All: nkda On exam: aaox3. PERRL. EOMI. CN 2-12 normal. Speech fluent. Can name and repeat. no nystagmus. no facial asymmetry, tongue midline. motor: cannot examine L upper extremity secondary to pain; 5/5 strength all other extremities reflexes: 2/4 DTR's b/l, no clonus no pronator drift, normal finger to nose (R upper extremity), normal heel to coleman Past Patient History - Past Medical History & Family History Past Medical History?: Yes - Past Social History Smoking Status: Never Smoked Home Situation {Lives}: With Family - CARDIAC Hx Cardiac Disorders: Yes (SEVERE SINUS BRADYCARDIA PRESENTLY BEING EVALUATED BY PCP) - PULMONARY Hx Respiratory Disorders: No - NEUROLOGICAL Hx Migraine: Yes - HEENT Hx Epistaxis: Yes - RENAL Hx Chronic Kidney Disease: No - ENDOCRINE/METABOLIC Hx Endocrine Disorders: No - HEMATOLOGICAL/ONCOLOGICAL Hx Anemia: Yes - INTEGUMENTARY Hx Dermatological Problems: No - MUSCULOSKELETAL/RHEUMATOLOGICAL Hx Falls: No - GASTROINTESTINAL Hx Gastrointestinal Disorders: Yes Hx Ulcer: Yes - GENITOURINARY/GYNECOLOGICAL Hx Genitourinary Disorders: No - PSYCHIATRIC Hx Psychophysiologic Disorder: No Hx Substance Use: No - SURGICAL HISTORY Hx Surgeries: Yes Hx Tubal Ligation: Yes - ANESTHESIA Hx Anesthesia: Yes Hx Anesthesia Reactions: No Hx Malignant Hyperthermia: No Has any member of the family had a problem w/ anesthesia?: No Meds Allergies/Adverse Reactions: Allergies Allergy/AdvReac Type Severity Reaction Status Date / Time No Known Allergies Allergy Verified 12/17/16 15:55 - Medications Medications: Current Medications Atorvastatin Calcium (Lipitor) 20 mg PO DAILY [facility] Last Admin: 09/22/17 08:28 Dose: 20 mg Famotidine (Famotidine) 20 mg IVP Q12 [facility] Last Admin: 09/22/17 08:32 Dose: 20 mg Hydromorphone HCl (Dilaudid) 2 mg IVP Q4H PRN PRN Reason: pain 6-8 Last Admin: 09/22/17 05:16 Dose: 2 mg Heparin Sodium/Dextrose (Heparin 25,000 Units/250ml In D5w) 25,000 units in 250 mls @ 12 mls/hr IV .[id number] [facility] PRN Reason: Protocol Last Admin: 09/22/17 01:32 Dose: 12 mls/hr Lactated Ringer's (Lactated Ringer's) 1,000 mls @ 125 mls/hr IV .Q8H [facility] Last Admin: 09/22/17 03:20 Dose: 125 mls/hr Meclizine HCl (Antivert) 25 mg PO TID [facility] Last Admin: 09/22/17 08:27 Dose: 25 mg Sucralfate (Carafate Oral Susp) 1 gm PO QID [facility] Topiramate (Topamax) 50 mg PO BID [facility] Last Admin: 09/22/17 08:28 Dose: 50 mg Results - Vital Signs Recent Vital Signs: Last Vital Signs Temp 98.3 F 09/22/17 12:00 Pulse 97 H 09/22/17 12:00 Resp 9 L 09/22/17 12:00 BP 198/98 H 09/22/17 12:00 Pulse Ox 99 09/22/17 12:00 - Labs Result Diagrams: 09/22/17 09:02 09/22/17 09:02 Labs: Laboratory Results - last 24 hr 09/21/17 09/21/17 09/22/17 16:11 16:28 01:30 WBC RBC Hgb Hct MCV MCH MCHC RDW Plt Count Retic Count APTT Sodium Potassium Chloride Carbon Dioxide Anion Gap BUN Creatinine Est GFR ( Amer) Est GFR (Non-Af Amer) POC Glucose (mg/dL) Random Glucose Lactic Acid Calcium Iron TIBC % Saturation Ferritin Total Bilirubin AST ALT Alkaline Phosphatase Troponin I < 0.0120 Total Protein Albumin Globulin Albumin/Globulin Ratio Triglycerides Cholesterol LDL Cholesterol Direct HDL Cholesterol Vitamin B12 Procalcitonin 0.11 L Thyroxine (T4) TSH 3rd Generation Urine Opiates Screen Positive H Urine Methadone Screen Negative Ur Barbiturates Screen Negative Ur Phencyclidine Scrn Negative Ur Amphetamines Screen Negative U Benzodiazepines Scrn Negative U Oth Cocaine Metabols Negative U Cannabinoids Screen Negative 09/22/17 09/22/17 09/22/17 03:48 04:42 04:42 WBC 16.2 H RBC 4.05 Hgb 8.4 L Hct 27.7 L MCV 68.4 L MCH 20.6 L MCHC 30.1 L RDW 17.7 H Plt Count 393 Retic Count 1.9 H APTT Sodium 138 Potassium 3.8 Chloride 99 Carbon Dioxide 23 Anion Gap 20 BUN 6 L Creatinine 0.7 Est GFR ( Amer) > 60 Est GFR (Non-Af Amer) > 60 POC Glucose (mg/dL) 101 Random Glucose 107 H Lactic Acid Calcium 9.5 Iron TIBC % Saturation Ferritin 6.5 Total Bilirubin AST ALT Alkaline Phosphatase Troponin I Total Protein Albumin Globulin Albumin/Globulin Ratio Triglycerides Cholesterol LDL Cholesterol Direct HDL Cholesterol Vitamin B12 396 Procalcitonin Thyroxine (T4) TSH 3rd Generation Urine Opiates Screen Urine Methadone Screen Ur Barbiturates Screen Ur Phencyclidine Scrn Ur Amphetamines Screen U Benzodiazepines Scrn U Oth Cocaine Metabols U Cannabinoids Screen 09/22/17 09/22/17 09/22/17 04:42 07:41 09:02 WBC 14.4 H RBC 4.06 Hgb 8.5 L Hct 28.2 L MCV 69.4 L MCH 20.9 L MCHC 30.1 L RDW 17.7 H Plt Count 382 Retic Count APTT 76.7 H D Sodium Potassium Chloride Carbon Dioxide Anion Gap BUN Creatinine Est GFR ( Amer) Est GFR (Non-Af Amer) POC Glucose (mg/dL) Random Glucose Lactic Acid Calcium Iron 29 L TIBC 367 % Saturation 8 L Ferritin Total Bilirubin AST ALT Alkaline Phosphatase Troponin I Total Protein Albumin Globulin Albumin/Globulin Ratio Triglycerides Cholesterol LDL Cholesterol Direct HDL Cholesterol Vitamin B12 Procalcitonin Thyroxine (T4) TSH 3rd Generation Urine Opiates Screen Urine Methadone Screen Ur Barbiturates Screen Ur Phencyclidine Scrn Ur Amphetamines Screen U Benzodiazepines Scrn U Oth Cocaine Metabols U Cannabinoids Screen 09/22/17 09/22/17 09/22/17 09:02 09:02 09:30 WBC RBC Hgb Hct MCV MCH MCHC RDW Plt Count Retic Count APTT Sodium 138 Potassium 4.0 Chloride 101 Carbon Dioxide 19 L Anion Gap 22 H BUN 6 L Creatinine 0.6 L Est GFR ( Amer) > 60 Est GFR (Non-Af Amer) > 60 POC Glucose (mg/dL) Random Glucose 138 H Lactic Acid 1.7 Calcium 9.3 Iron TIBC % Saturation Ferritin Total Bilirubin 0.5 AST 32 ALT 40 Alkaline Phosphatase 73 Troponin I < 0.0120 Total Protein 7.7 Albumin 3.9 Globulin 3.8 Albumin/Globulin Ratio 1.0 Triglycerides 171 H Cholesterol 211 H LDL Cholesterol Direct 155 H HDL Cholesterol 33 Vitamin B12 Procalcitonin Thyroxine (T4) 10.7 TSH 3rd Generation 1.04 Urine Opiates Screen Urine Methadone Screen Ur Barbiturates Screen Ur Phencyclidine Scrn Ur Amphetamines Screen U Benzodiazepines Scrn U Oth Cocaine Metabols U Cannabinoids Screen - Impressions Impression: 47 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 I feel that she fell due to these small strokes and then may have fractured her left arm, or this may be secondary to her strokes, although less likely. Neurointerventional was consulted and does not feel that there is no intervention at this time. Plan: 1. Repeat MRi Brain without carline 2, Stroke in a young person workup: lupus anticoagulant, protein c and s, factor 5 leiden, anti thrombin 3, 3. stat left arm/wrist xray 4. PT, OT 5. continue heparin Dr. Starr
[2017-09-22] MEDS: Sucralfate 1 gm/10 ml Oral Susp UD PO SCH ×3 (13:42→21:58)
--- NOTE | 2017-09-22 14:20 | CP.PCM.CON ---
Past Patient History - Past Medical History & Family History Past Medical History?: Yes - Past Social History Smoking Status: Never Smoked Home Situation {Lives}: With Family - CARDIAC Hx Cardiac Disorders: Yes (SEVERE SINUS BRADYCARDIA PRESENTLY BEING EVALUATED BY PCP) - PULMONARY Hx Respiratory Disorders: No - NEUROLOGICAL Hx Migraine: Yes - HEENT Hx Epistaxis: Yes - RENAL Hx Chronic Kidney Disease: No - ENDOCRINE/METABOLIC Hx Endocrine Disorders: No - HEMATOLOGICAL/ONCOLOGICAL Hx Anemia: Yes - INTEGUMENTARY Hx Dermatological Problems: No - MUSCULOSKELETAL/RHEUMATOLOGICAL Hx Falls: No - GASTROINTESTINAL Hx Gastrointestinal Disorders: Yes Hx Ulcer: Yes - GENITOURINARY/GYNECOLOGICAL Hx Genitourinary Disorders: No - PSYCHIATRIC Hx Psychophysiologic Disorder: No Hx Substance Use: No - SURGICAL HISTORY Hx Surgeries: Yes Hx Tubal Ligation: Yes - ANESTHESIA Hx Anesthesia: Yes Hx Anesthesia Reactions: No Hx Malignant Hyperthermia: No Has any member of the family had a problem w/ anesthesia?: No Meds Allergies/Adverse Reactions: Allergies Allergy/AdvReac Type Severity Reaction Status Date / Time No Known Allergies Allergy Verified 12/17/16 15:55 - Medications Medications: Current Medications Atorvastatin Calcium (Lipitor) 20 mg PO DAILY [facility] Last Admin: 09/22/17 08:28 Dose: 20 mg Famotidine (Famotidine) 20 mg IVP Q12 [facility] Last Admin: 09/22/17 08:32 Dose: 20 mg Hydromorphone HCl (Dilaudid) 2 mg IVP Q4H PRN PRN Reason: pain 6-8 Last Admin: 09/22/17 13:45 Dose: 2 mg Heparin Sodium/Dextrose (Heparin 25,000 Units/250ml In D5w) 25,000 units in 250 mls @ 12 mls/hr IV .[id number] [facility] PRN Reason: Protocol Last Admin: 09/22/17 01:32 Dose: 12 mls/hr Lactated Ringer's (Lactated Ringer's) 1,000 mls @ 125 mls/hr IV .Q8H [facility] Last Admin: 09/22/17 03:20 Dose: 125 mls/hr Meclizine HCl (Antivert) 25 mg PO TID [facility] Last Admin: 09/22/17 13:42 Dose: 25 mg Sucralfate (Carafate Oral Susp) 1 gm PO QID [facility] Last Admin: 03/10/18 13:42 Dose: 1 gm Topiramate (Topamax) 50 mg PO BID [facility] Last Admin: 09/22/17 08:28 Dose: 50 mg Results - Vital Signs Recent Vital Signs: Last Vital Signs Temp 98.3 F 09/22/17 12:00 Pulse 83 09/22/17 13:39 Resp 9 L 09/22/17 12:00 BP 154/87 H 09/22/17 13:39 Pulse Ox 99 09/22/17 12:00 - Labs Result Diagrams: 09/22/17 09:02 09/22/17 09:02 Labs: Laboratory Results - last 24 hr 09/21/17 09/21/17 09/22/17 16:11 16:28 01:30 WBC RBC Hgb Hct MCV MCH MCHC RDW Plt Count Retic Count APTT Sodium Potassium Chloride Carbon Dioxide Anion Gap BUN Creatinine Est GFR ( Amer) Est GFR (Non-Af Amer) POC Glucose (mg/dL) Random Glucose Lactic Acid Calcium Iron TIBC % Saturation Ferritin Total Bilirubin AST ALT Alkaline Phosphatase Troponin I < 0.0120 Total Protein Albumin Globulin Albumin/Globulin Ratio Triglycerides Cholesterol LDL Cholesterol Direct HDL Cholesterol Vitamin B12 Procalcitonin 0.11 L Thyroxine (T4) TSH 3rd Generation Urine Opiates Screen Positive H Urine Methadone Screen Negative Ur Barbiturates Screen Negative Ur Phencyclidine Scrn Negative Ur Amphetamines Screen Negative U Benzodiazepines Scrn Negative U Oth Cocaine Metabols Negative U Cannabinoids Screen Negative 09/22/17 09/22/17 09/22/17 03:48 04:42 04:42 WBC 16.2 H RBC 4.05 Hgb 8.4 L Hct 27.7 L MCV 68.4 L MCH 20.6 L MCHC 30.1 L RDW 17.7 H Plt Count 393 Retic Count 1.9 H APTT Sodium 138 Potassium 3.8 Chloride 99 Carbon Dioxide 23 Anion Gap 20 BUN 6 L Creatinine 0.7 Est GFR ( Amer) > 60 Est GFR (Non-Af Amer) > 60 POC Glucose (mg/dL) 101 Random Glucose 107 H Lactic Acid Calcium 9.5 Iron TIBC % Saturation Ferritin 6.5 Total Bilirubin AST ALT Alkaline Phosphatase Troponin I Total Protein Albumin Globulin Albumin/Globulin Ratio Triglycerides Cholesterol LDL Cholesterol Direct HDL Cholesterol Vitamin B12 396 Procalcitonin Thyroxine (T4) TSH 3rd Generation Urine Opiates Screen Urine Methadone Screen Ur Barbiturates Screen Ur Phencyclidine Scrn Ur Amphetamines Screen U Benzodiazepines Scrn U Oth Cocaine Metabols U Cannabinoids Screen 09/22/17 09/22/17 09/22/17 04:42 07:41 09:02 WBC 14.4 H RBC 4.06 Hgb 8.5 L Hct 28.2 L MCV 69.4 L MCH 20.9 L MCHC 30.1 L RDW 17.7 H Plt Count 382 Retic Count APTT 76.7 H D Sodium Potassium Chloride Carbon Dioxide Anion Gap BUN Creatinine Est GFR ( Amer) Est GFR (Non-Af Amer) POC Glucose (mg/dL) Random Glucose Lactic Acid Calcium Iron 29 L TIBC 367 % Saturation 8 L Ferritin Total Bilirubin AST ALT Alkaline Phosphatase Troponin I Total Protein Albumin Globulin Albumin/Globulin Ratio Triglycerides Cholesterol LDL Cholesterol Direct HDL Cholesterol Vitamin B12 Procalcitonin Thyroxine (T4) TSH 3rd Generation Urine Opiates Screen Urine Methadone Screen Ur Barbiturates Screen Ur Phencyclidine Scrn Ur Amphetamines Screen U Benzodiazepines Scrn U Oth Cocaine Metabols U Cannabinoids Screen 09/22/17 09/22/17 09/22/17 09:02 09:02 09:30 WBC RBC Hgb Hct MCV MCH MCHC RDW Plt Count Retic Count APTT Sodium 138 Potassium 4.0 Chloride 101 Carbon Dioxide 19 L Anion Gap 22 H BUN 6 L Creatinine 0.6 L Est GFR ( Amer) > 60 Est GFR (Non-Af Amer) > 60 POC Glucose (mg/dL) Random Glucose 138 H Lactic Acid 1.7 Calcium 9.3 Iron TIBC % Saturation Ferritin Total Bilirubin 0.5 AST 32 ALT 40 Alkaline Phosphatase 73 Troponin I < 0.0120 Total Protein 7.7 Albumin 3.9 Globulin 3.8 Albumin/Globulin Ratio 1.0 Triglycerides 171 H Cholesterol 211 H LDL Cholesterol Direct 155 H HDL Cholesterol 33 Vitamin B12 Procalcitonin Thyroxine (T4) 10.7 TSH 3rd Generation 1.04 Urine Opiates Screen Urine Methadone Screen Ur Barbiturates Screen Ur Phencyclidine Scrn Ur Amphetamines Screen U Benzodiazepines Scrn U Oth Cocaine Metabols U Cannabinoids Screen 09/22/17 13:25 WBC RBC Hgb Hct MCV MCH MCHC RDW Plt Count Retic Count APTT Sodium Potassium Chloride Carbon Dioxide Anion Gap BUN Creatinine Est GFR ( Amer) Est GFR (Non-Af Amer) POC Glucose (mg/dL) Random Glucose Lactic Acid 1.8 Calcium Iron TIBC % Saturation Ferritin Total Bilirubin AST ALT Alkaline Phosphatase Troponin I Total Protein Albumin Globulin Albumin/Globulin Ratio Triglycerides Cholesterol LDL Cholesterol Direct HDL Cholesterol Vitamin B12 Procalcitonin Thyroxine (T4) TSH 3rd Generation Urine Opiates Screen Urine Methadone Screen Ur Barbiturates Screen Ur Phencyclidine Scrn Ur Amphetamines Screen U Benzodiazepines Scrn U Oth Cocaine Metabols U Cannabinoids Screen Assessment & Plan (1) Subclavian artery thrombosis Status: Acute (2) History of bleeding peptic ulcer Status: Acute (3) Acute CVA (cerebrovascular accident) Status: Acute (4) Pain of left upper extremity Status: Acute (5) Severe dizziness Status: Acute (6) PUD (peptic ulcer disease) Status: Acute (7) Syncope Status: Acute - Assessment and Plan (Free Text) Plan: herb Sunday anticoagulation and monitor for bleed hypercoag w/u gi prophylaxis monitor for arrythmia will need outpt event monitor start plavix would consider mri of spine to eval for focal lesions (if neuro feels it is indicated). tte vinicio further rec to follow.
--- NOTE | 2017-09-22 15:24 | RAD ---
PROCEDURE: Right Wrist Radiographs. HISTORY: rule out fracture wrist COMPARISON: None. FINDINGS: BONES: Normal. No fracture. JOINTS: Normal. No dislocation. SOFT TISSUES: Normal. OTHER FINDINGS: None. IMPRESSION: Normal right wrist radiographs.
--- NOTE | 2017-09-22 15:29 | RAD ---
PROCEDURE: Radiographs of the Left Shoulder HISTORY: rule out fracture COMPARISON: No prior. FINDINGS: BONES: Normal. No fracture. JOINTS: Normal. Glenohumeral and acromioclavicular joints preserved. No osteoarthritis. SOFT TISSUES: Normal. OTHER FINDINGS: None. IMPRESSION: Normal radiographs of the left shoulder.
--- NOTE | 2017-09-22 16:20 | CP.PCM.PN ---
Subjective - Date & Time of Evaluation Date of Evaluation: 09/22/17 Time of Evaluation: 15:40 - Subjective Subjective: F/U Acute CVA. Pain LUE improved , Dizziness , blurred vision L eye Objective - Vital Signs/Intake and Output Vital Signs (last 24 hours): Temp Pulse Resp BP Pulse Ox 98.1 F 96 H 10 L 154/77 H 97 09/22/17 16:00 09/22/17 16:00 09/22/17 16:00 09/22/17 16:00 09/22/17 16:00 Intake and Output: 09/22/17 09/22/17 06:59 18:59 Intake Total 200 25 Balance 200 25 - Medications Medications: Current Medications Atorvastatin Calcium (Lipitor) 20 mg PO DAILY [facility] Last Admin: 09/22/17 08:28 Dose: 20 mg Clopidogrel Bisulfate (Plavix) 75 mg PO DAILY [facility] Last Admin: 09/22/17 15:22 Dose: Not Given Famotidine (Famotidine) 20 mg IVP Q12 [facility] Last Admin: 09/22/17 08:32 Dose: 20 mg Hydromorphone HCl (Dilaudid) 2 mg IVP Q4H PRN PRN Reason: pain 6-8 Last Admin: 09/22/17 13:45 Dose: 2 mg Heparin Sodium/Dextrose (Heparin 25,000 Units/250ml In D5w) 25,000 units in 250 mls @ 12 mls/hr IV .[id number] [facility] PRN Reason: Protocol Last Titration: 09/22/17 15:18 Dose: 10.5 mls/hr Lactated Ringer's (Lactated Ringer's) 1,000 mls @ 125 mls/hr IV .Q8H [facility] Last Admin: 09/22/17 15:20 Dose: 125 mls/hr Meclizine HCl (Antivert) 25 mg PO TID [facility] Last Admin: 09/22/17 13:42 Dose: 25 mg Sucralfate (Carafate Oral Susp) 1 gm PO QID [facility] Last Admin: 09/22/17 13:42 Dose: 1 gm Topiramate (Topamax) 50 mg PO BID [facility] Last Admin: 09/22/17 08:28 Dose: 50 mg - Labs Labs: 09/22/17 09:02 09/22/17 09:02 PT 11.3 Seconds (9.8-13.1) 09/21/17 07:45 INR 1.0 (0.9-1.2) 09/21/17 07:45 APTT 59.2 Seconds (25.6-37.1) H D 09/22/17 15:32 - Constitutional Appears: No Acute Distress - Head Exam Head Exam: NORMAL INSPECTION - Eye Exam Eye Exam: PERRL - ENT Exam ENT Exam: Normal Exam - Neck Exam Neck Exam: Normal Inspection - Respiratory Exam Respiratory Exam: Clear to Ausculation Bilateral, NORMAL BREATHING PATTERN - Cardiovascular Exam Cardiovascular Exam: REGULAR RHYTHM - GI/Abdominal Exam GI & Abdominal Exam: Soft, Normal Bowel Sounds - Extremities Exam Extremities Exam: Tenderness (tenderness Left forearm and hand, less tenderness Left arm , ROM decrease unable to lift LUE against gravity) - Neurological Exam Neurological Exam: Alert, CN II-XII Intact Additional comments: A O x 2 , dizziness , c.o blurred vision L eye , limited movement LUE 2nd to tenderness , moves well rest of extremities Assessment and Plan (1) Acute CVA (cerebrovascular accident) Status: Acute (2) Acute cerebrovascular accident (CVA) of cerebellum Status: Acute (3) Migraine Status: Acute (4) Severe vertigo Status: Acute (5) Pain of left upper extremity Assessment & Plan: 2nd to L subclavian vein thrombosis Status: Acute (6) Left subclavian vein thrombosis Status: Acute (7) Vertebral artery occlusion Status: Acute (8) Anemia Status: Chronic - Assessment and Plan (Free Text) Plan: continue Heparin drip , Plavix , Topamax , Meclizine Dilaudid , ECHO normal, to have GILBERT on Sunday, monitor Hgb, CT Head , f/u genetic markers .
[2017-09-23 07:16] LABS: BASO % 0.3 % (0.0-2.0); EOS # 0.1 K/uL (0.0-0.7); EOS % 0.9 % (0.0-4.0); LYMPH # 1.5 K/uL (1.0-4.3); LYMPH % 12.1 % (20.0-40.0); MEAN CORPUSCULAR HEMOGLOBIN 20.7 pg (27.0-31.0); MEAN PLATELET VOLUME 7.5 fl (7.2-11.7); MONO # 0.8 K/uL (0.0-0.8); MONO % 6.5 % (0.0-10.0); NEUT % 80.2 % (50.0-75.0); NRBC % 0.1 % (0.0-0.0); RBC 3.65 Mil/uL (3.80-5.20); RED CELL DISTRIBUTION WIDTH 17.6 % (11.5-14.5); WHITE BLOOD COUNT 12.4 K/uL (4.8-10.8)
[2017-09-23 07:27] LABS: HEMOGLOBIN 7.6 g/dL (12.0-16.0)
[2017-09-23 07:28] LABS: INR 1.1 (0.9-1.2); MEAN CELL VOLUME 69.1 fl (81.0-99.0); PROTHROMBIN TIME 12.2 Seconds (9.8-13.1)
--- NOTE | 2017-09-23 07:43 | CT ---
EXAM: CT Head Without Intravenous Contrast CLINICAL HISTORY: 47 years old, female; Signs and symptoms; Dizziness; Additional info: Declining mental status TECHNIQUE: Axial computed tomography images of the head/brain without intravenous contrast. All CT scans at this facility use one or more dose reduction techniques, viz.: automated exposure control; ma/kV adjustment per patient size (including targeted exams where dose is matched to indication; i.e. head); or iterative reconstruction technique. 289 images are submitted. Coronal and sagittal reformatted images were created and reviewed. COMPARISON: CTA HEAD NECK BUNDLE 2017-09-21 22:17 FINDINGS: Brain: There is left cerebellum hypodensity which is new when compared to prior examination from September 21, 2017 representing subacute left cerebellar ischemic change. No hemorrhage. Ventricles: Unremarkable. No ventriculomegaly. Bones/joints: Unremarkable. No acute fracture. Soft tissues: Unremarkable. Sinuses: Unremarkable. No acute sinusitis. Mastoid air cells: Unremarkable. No mastoid effusion. Orbits: The globe and lens are intact. IMPRESSION: 1. There is left cerebellum hypodensity seen on image 10 series 4 which is new when compared to prior examination from September 21, 2017 representing subacute left cerebellar ischemic change. 2. There is no evidence of acute intracranial hemorrhage.
[2017-09-23 07:45] LABS: ALB/GLOB RATIO 1.1 (1.0-2.1); ALBUMIN 3.9 g/dL (3.5-5.0); ALT/SGPT 42 U/L (9-52); AST/SGOT 35 U/L (14-36); BLOOD UREA NITROGEN 6 mg/dl (7-17); CALCIUM 9.6 mg/dL (8.4-10.2); GFR AFRICAN-AMERICAN > 60; GFR NON-AFRICAN AMERICAN > 60
[2017-09-23] MEDS ORDERED: Heparin 25,000units in D5W 25,000 UNITS/250 ML BAG IV SCH (08:45)
--- NOTE | 2017-09-23 09:02 | CP.PCM.PN ---
Subjective - Date & Time of Evaluation Date of Evaluation: 09/23/17 Time of Evaluation: 08:53 - Subjective Subjective: Ms. Kleber Sheldon was seen and examined at the bedside. She is responsive to verbal and tactile stimuli, but unable to maintain her eyes open. Her pupils remains reactive to light. She is able to follow simple commands such as raising her right upper extremity. She is unable to lift her bilateral lower extremities off the bed, but able to move. Her left is warmer than the right bilateral upper and lower extremities. Her distal pedal and popliteal pulses are + via doppler. According to the , she was alert, oriented yesterday with her mental status changes since her episode of low blood pressure. CT of the head this morning showed left cerebellum hypodensity representing subacute left cerebellar ischemic change. There is no evidence of acute intracranial hemorrhage. She has a very poor appetite able to tolerate few bites from her breakfast tray. Her recent H/H 7.6 and 25.6 including her iron level. Objective - Vital Signs/Intake and Output Vital Signs (last 24 hours): Temp Pulse Resp BP Pulse Ox 97.3 F L 79 18 116/62 98 09/23/17 08:00 09/23/17 08:00 09/23/17 08:00 09/23/17 08:00 09/23/17 08:00 Intake and Output: 09/23/17 09/23/17 06:59 18:59 Intake Total Output Total Balance - Medications Medications: Current Medications Atorvastatin Calcium (Lipitor) 20 mg PO DAILY [facility] Last Admin: 09/22/17 08:28 Dose: 20 mg Clopidogrel Bisulfate (Plavix) 75 mg PO DAILY [facility] Last Admin: 09/22/17 15:22 Dose: Not Given Famotidine (Famotidine) 20 mg IVP Q12 [facility] Last Admin: 09/22/17 21:58 Dose: 20 mg Hydromorphone HCl (Dilaudid) 2 mg IVP Q4H PRN PRN Reason: pain 6-8 Last Admin: 09/22/17 22:40 Dose: 2 mg Lactated Ringer's (Lactated Ringer's) 1,000 mls @ 125 mls/hr IV .Q8H [facility] Last Admin: 09/22/17 23:00 Dose: 125 mls/hr Heparin Sodium/Dextrose (Heparin 25,000 Units/250ml In D5w) 25,000 units in 250 mls @ 10.5 mls/hr IV .[id number] [facility] PRN Reason: Protocol Meclizine HCl (Antivert) 25 mg PO TID [facility] Last Admin: 09/22/17 16:36 Dose: 25 mg Sucralfate (Carafate Oral Susp) 1 gm PO QID [facility] Last Admin: 09/22/17 21:58 Dose: 1 gm Topiramate (Topamax) 50 mg PO BID [facility] Last Admin: 09/22/17 16:36 Dose: 50 mg - Labs Labs: 09/23/17 05:30 09/23/17 05:30 PT 12.2 Seconds (9.8-13.1) 09/23/17 05:30 INR 1.1 (0.9-1.2) 09/23/17 05:30 APTT 54.7 Seconds (25.6-37.1) H 09/22/17 20:41 - Constitutional Appears: No Acute Distress - Head Exam Head Exam: NORMAL INSPECTION - Extremities Exam Additional comments: uneven temperature of her extremities with the left side warmer than the right. , + pedal and popliteal pulses via doppler. - Neurological Exam Neurological Exam: Alert, Awake Neuro motor strength exam: Left Upper Extremity: 0, Right Upper Extremity: 3, Left Lower Extremity: 2/1, Right Lower Extremity: 2/1 Additional comments: Neurological declined since yesterday. Assessment and Plan (1) Acute CVA (cerebrovascular accident) Assessment & Plan: Case discussed with Dr. Starr, continue all current medical therapy. Recommend MRI of the spine without contrast including the brain Status: Acute
[2017-09-23] MEDS: Sucralfate 1 gm/10 ml Oral Susp UD PO SCH ×4 (09:31→21:32)
--- NOTE | 2017-09-23 09:50 | CP.PCM.PN ---
Subjective - Date & Time of Evaluation Date of Evaluation: 09/23/17 Time of Evaluation: 08:30 - Subjective Subjective: Vascular surgery note for Dr. Maykel Franco, PGY-1 Pt S & E at bedside. Pt is resting comfortably in bed with significant other at bedside. Significant other reports that pt is more lethargic from baseline, has been in a lot of pain over left extremity overnight. Pt reports pain in LUE, is not eating a lot, feels week and now reports RLE is colder vs. LLE. Objective - Vital Signs/Intake and Output Vital Signs (last 24 hours): Temp Pulse Resp BP Pulse Ox 97.3 F L 79 18 116/62 98 09/23/17 08:00 09/23/17 08:00 09/23/17 08:00 09/23/17 08:00 09/23/17 08:00 Intake and Output: 09/23/17 09/23/17 06:59 18:59 Intake Total Output Total Balance - Medications Medications: Current Medications Atorvastatin Calcium (Lipitor) 20 mg PO DAILY [facility] Last Admin: 09/23/17 09:31 Dose: 20 mg Clopidogrel Bisulfate (Plavix) 75 mg PO DAILY [facility] Last Admin: 09/23/17 09:32 Dose: 75 mg Famotidine (Famotidine) 20 mg IVP Q12 [facility] Last Admin: 09/23/17 09:33 Dose: 20 mg Hydromorphone HCl (Dilaudid) 2 mg IVP Q4H PRN PRN Reason: pain 6-8 Last Admin: 09/22/17 22:40 Dose: 2 mg Lactated Ringer's (Lactated Ringer's) 1,000 mls @ 125 mls/hr IV .Q8H [facility] Last Admin: 09/22/17 23:00 Dose: 125 mls/hr Heparin Sodium/Dextrose (Heparin 25,000 Units/250ml In D5w) 25,000 units in 250 mls @ 10.5 mls/hr IV .[id number] [facility] PRN Reason: Protocol Meclizine HCl (Antivert) 25 mg PO TID [facility] Last Admin: 09/23/17 09:31 Dose: 25 mg Sucralfate (Carafate Oral Susp) 1 gm PO QID [facility] Last Admin: 09/23/17 09:31 Dose: 1 gm Topiramate (Topamax) 50 mg PO BID [facility] Last Admin: 09/23/17 09:32 Dose: 50 mg - Labs Labs: 09/23/17 05:30 09/23/17 05:30 PT 12.2 Seconds (9.8-13.1) 09/23/17 05:30 INR 1.1 (0.9-1.2) 09/23/17 05:30 APTT 43.5 Seconds (25.6-37.1) H D 09/23/17 05:30 - Constitutional Appears: Non-toxic, No Acute Distress - Head Exam Head Exam: ATRAUMATIC, NORMAL INSPECTION, NORMOCEPHALIC - Eye Exam Eye Exam: EOMI, Normal appearance - ENT Exam ENT Exam: Mucous Membranes Moist, Normal Exam - Neck Exam Neck Exam: Full ROM, Normal Inspection - Respiratory Exam Respiratory Exam: NORMAL BREATHING PATTERN - Cardiovascular Exam Cardiovascular Exam: REGULAR RHYTHM, +S1, +S2 - GI/Abdominal Exam GI & Abdominal Exam: Soft. absent: Distended, Firm, Guarding, Rigid, Tenderness - Extremities Exam Extremities Exam: Tenderness (LUE, pronounced. ). absent: Normal Inspection ( LUE with swelling vs. 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
--- NOTE | 2017-09-23 11:21 | CP.PCM.PN ---
Subjective - Date & Time of Evaluation Date of Evaluation: 09/23/17 Time of Evaluation: 09:00 - Subjective Subjective: Patient had an episode of tachcycardia with hypotension. Objective - Vital Signs/Intake and Output Vital Signs (last 24 hours): Temp Pulse Resp BP Pulse Ox 97.3 F L 79 18 116/62 98 09/23/17 08:00 09/23/17 08:00 09/23/17 08:00 09/23/17 08:00 09/23/17 08:00 Intake and Output: 09/23/17 09/23/17 06:59 18:59 Intake Total 0 Output Total Balance 0 - Medications Medications: Current Medications Atorvastatin Calcium (Lipitor) 20 mg PO DAILY [facility] Last Admin: 09/23/17 09:31 Dose: 20 mg Clopidogrel Bisulfate (Plavix) 75 mg PO DAILY [facility] Last Admin: 09/23/17 09:32 Dose: 75 mg Famotidine (Famotidine) 20 mg IVP Q12 [facility] Last Admin: 09/23/17 09:33 Dose: 20 mg Hydromorphone HCl (Dilaudid) 2 mg IVP Q4H PRN PRN Reason: pain 6-8 Last Admin: 09/22/17 22:40 Dose: 2 mg Lactated Ringer's (Lactated Ringer's) 1,000 mls @ 125 mls/hr IV .Q8H [facility] Last Admin: 09/22/17 23:00 Dose: 125 mls/hr Heparin Sodium/Dextrose (Heparin 25,000 Units/250ml In D5w) 25,000 units in 250 mls @ 10.5 mls/hr IV .[id number] [facility] PRN Reason: Protocol Last Titration: 09/23/17 10:40 Dose: 12 mls/hr Meclizine HCl (Antivert) 25 mg PO TID [facility] Last Admin: 09/23/17 09:31 Dose: 25 mg Sucralfate (Carafate Oral Susp) 1 gm PO QID [facility] Last Admin: 09/23/17 09:31 Dose: 1 gm Topiramate (Topamax) 50 mg PO BID [facility] Last Admin: 09/23/17 09:32 Dose: 50 mg - Labs Labs: 09/23/17 05:30 09/23/17 05:30 PT 12.2 Seconds (9.8-13.1) 09/23/17 05:30 INR 1.1 (0.9-1.2) 09/23/17 05:30 APTT 43.5 Seconds (25.6-37.1) H D 09/23/17 05:30 - Constitutional Appears: Non-toxic - Head Exam Head Exam: ATRAUMATIC, NORMAL INSPECTION - Eye Exam Pupil Exam: NORMAL ACCOMODATION - ENT Exam ENT Exam: Mucous Membranes Moist - Neck Exam Neck Exam: Normal Inspection - Respiratory Exam Respiratory Exam: NORMAL BREATHING PATTERN - Cardiovascular Exam Cardiovascular Exam: REGULAR RHYTHM, +S1, +S2 - GI/Abdominal Exam GI & Abdominal Exam: Soft. absent: Tenderness - Extremities Exam Extremities Exam: Normal Inspection - Back Exam Back Exam: Full ROM Assessment and Plan - Assessment and Plan (Free Text) Assessment: -CVA with posterior vertebral symptoms with possible thrombotic and/or thromboembolic etiology:continue rx as per neurology -Anemia: acute event overnight suggested likely acute blood loss anemia, will benefit rfom transfusion of PRBC -h/o PUD: continue ant-acid with sucrafate -dvt px on Iv heparin -PUD ppx pepcid -migraine: topiramate (no headaches on examination) -Neurology to discuss risks, benefits and alternatives for continue antiplatelets and anticoagulation in light of decreasing hb/hct. -Patient elected to continue blood tranfusion and continue IV heparin
--- NOTE | 2017-09-23 17:18 | MRI ---
PROCEDURE: MRI BRAIN WITHOUT CONTRAST HISTORY: change of mental status,cerebellar stroke COMPARISON: 09/21/2017. TECHNIQUE: Multiplanar, multisequence MR images of the brain were obtained without intravenous contrast enhancement. FINDINGS: HEMORRHAGE: None DWI: Stable acute infarct in the left parietal lobe. New moderate to large acute infarct in the left medial cerebellum and left medulla. BRAIN PARENCHYMA: No mass effect or edema. No atrophy or chronic microvascular ischemic changes. VENTRICLES: Unremarkable. No hydrocephalus. CRANIUM: Unremarkable. ORBITS: Grossly unremarkable. PARANASAL SINUSES/MASTOIDS: Clear VASCULAR SYSTEM: Skull base flow voids intact. OTHER FINDINGS: None. IMPRESSION: Stable acute infarct in the left parietal lobe. New moderate to large acute infarct in the left medial cerebellum and left medulla.
[2017-09-23] MEDS: Lactated Ringer's 1,000 ML IV SCH (17:23)
[2017-09-23 17:30] LABS: HEMOGLOBIN 9.3 g/dL (12.0-16.0); MEAN CELL VOLUME 70.6 fl (81.0-99.0); MEAN CORPUSCULAR HEMOGLOBIN 22.3 pg (27.0-31.0); MEAN CORPUSCULAR HGB CONC 31.6 g/dL (33.0-37.0); RBC 4.19 Mil/uL (3.80-5.20); RED CELL DISTRIBUTION WIDTH 19.3 % (11.5-14.5); WHITE BLOOD COUNT 14.6 K/uL (4.8-10.8)
--- NOTE | 2017-09-23 17:45 | CP.PCM.CON ---
History of Present Illness - History of Present Illness History of Present Illness: 47 year old female with a history of migraines, admitted with CVA, and progressive anemia. The patient does admit to heavy periods. She denies further abnormal bleeding, bruising, clotting. Her imaging does reveal b/l internal carotid stenosis, left vertebral artery occlusion and left subclavian artery thrombus. She is currently on plavix, heparin drip and s/p 1unit PRBC. Past medical history: Migraines Past surgical history: None Family history: Mother had stroke in her 40s Social history: Denies tobacco, alcohol, and illicit drug use. Allergies: NKA Review of systems: All remaining review of systems including HEENT, cardiovascular, respiratory, gastrointestinal, genitourinary, musculoskeletal, dermatologic, neurologic, and psychiatric are negative unless mentioned in the HPI. Past Patient History - Past Medical History & Family History Past Medical History?: Yes - Past Social History Smoking Status: Never Smoked Home Situation {Lives}: With Family - CARDIAC Hx Cardiac Disorders: Yes (SEVERE SINUS BRADYCARDIA PRESENTLY BEING EVALUATED BY PCP) - PULMONARY Hx Respiratory Disorders: No - NEUROLOGICAL Hx Migraine: Yes - HEENT Hx Epistaxis: Yes - RENAL Hx Chronic Kidney Disease: No - ENDOCRINE/METABOLIC Hx Endocrine Disorders: No - HEMATOLOGICAL/ONCOLOGICAL Hx Anemia: Yes - INTEGUMENTARY Hx Dermatological Problems: No - MUSCULOSKELETAL/RHEUMATOLOGICAL Hx Falls: No - GASTROINTESTINAL Hx Gastrointestinal Disorders: Yes Hx Ulcer: Yes - GENITOURINARY/GYNECOLOGICAL Hx Genitourinary Disorders: No - PSYCHIATRIC Hx Psychophysiologic Disorder: No Hx Substance Use: No - SURGICAL HISTORY Hx Surgeries: Yes Hx Tubal Ligation: Yes - ANESTHESIA Hx Anesthesia: Yes Hx Anesthesia Reactions: No Hx Malignant Hyperthermia: No Has any member of the family had a problem w/ anesthesia?: No Meds Allergies/Adverse Reactions: Allergies Allergy/AdvReac Type Severity Reaction Status Date / Time No Known Allergies Allergy Verified 12/17/16 15:55 - Medications Medications: Current Medications Atorvastatin Calcium (Lipitor) 20 mg PO DAILY [facility] Last Admin: 09/23/17 09:31 Dose: 20 mg Clopidogrel Bisulfate (Plavix) 75 mg PO DAILY [facility] Last Admin: 09/23/17 09:32 Dose: 75 mg Famotidine (Famotidine) 20 mg IVP Q12 [facility] Last Admin: 09/23/17 09:33 Dose: 20 mg Hydromorphone HCl (Dilaudid) 1 mg IVP Q4H PRN PRN Reason: pain 6-8 Last Admin: 09/23/17 15:08 Dose: 1 mg Lactated Ringer's (Lactated Ringer's) 1,000 mls @ 125 mls/hr IV .Q8H [facility] Last Admin: 09/23/17 17:23 Dose: 125 mls/hr Heparin Sodium/Dextrose (Heparin 25,000 Units/250ml In D5w) 25,000 units in 250 mls @ 10.5 mls/hr IV .[id number] [facility] PRN Reason: Protocol Last Titration: 09/23/17 10:40 Dose: 12 mls/hr Meclizine HCl (Antivert) 25 mg PO TID [facility] Last Admin: 09/23/17 17:19 Dose: 25 mg Sucralfate (Carafate Oral Susp) 1 gm PO QID [facility] Last Admin: 09/23/17 17:19 Dose: 1 gm Topiramate (Topamax) 50 mg PO BID [facility] Last Admin: 09/23/17 17:20 Dose: 50 mg Physical Exam - Head Exam Head Exam: ATRAUMATIC - Eye Exam Eye Exam: Normal appearance - ENT Exam ENT Exam: Mucous Membranes Dry - Respiratory Exam Respiratory Exam: NORMAL BREATHING PATTERN - Cardiovascular Exam Cardiovascular Exam: +S1, +S2 - GI/Abdominal Exam GI & Abdominal Exam: Normal Bowel Sounds - Extremities Exam Additional comments: left arm pain with palpation - Neurological Exam Neurological exam: Oriented x3 - Psychiatric Exam Psychiatric exam: Normal Affect, Normal Mood - Skin Skin Exam: Warm Results - Vital Signs Recent Vital Signs: Last Vital Signs Temp 100.8 F H 09/23/17 16:00 Pulse 95 H 09/23/17 16:00 Resp 11 L 09/23/17 14:00 BP 162/80 H 09/23/17 16:00 Pulse Ox 99 09/23/17 16:00 - Labs Result Diagrams: 09/23/17 17:06 09/23/17 05:30 Labs: Laboratory Results - last 24 hr 09/22/17 09/22/17 09/22/17 16:30 17:00 20:41 WBC RBC Hgb Hct MCV MCH MCHC RDW Plt Count MPV Neut % (Auto) Lymph % (Auto) Frio % (Auto) Eos % (Auto) Baso % (Auto) Neut # (Auto) Lymph # (Auto) Frio # (Auto) Eos # (Auto) Baso # (Auto) PT INR APTT 54.7 H Sodium Potassium Chloride Carbon Dioxide Anion Gap BUN Creatinine Est GFR ( Amer) Est GFR (Non-Af Amer) POC Glucose (mg/dL) Random Glucose Lactic Acid 1.0 Calcium Phosphorus Magnesium Total Bilirubin AST ALT Alkaline Phosphatase Troponin I < 0.0120 Total Protein Albumin Globulin Albumin/Globulin Ratio Blood Type Antibody Screen Crossmatch BBK History Checked 09/23/17 09/23/17 09/23/17 05:30 05:30 05:30 WBC 12.4 H RBC 3.65 L Hgb 7.6 L Hct 25.2 L MCV 69.1 L MCH 20.7 L MCHC 30.0 L RDW 17.6 H Plt Count 399 MPV 7.5 Neut % (Auto) 80.2 H Lymph % (Auto) 12.1 L Frio % (Auto) 6.5 Eos % (Auto) 0.9 Baso % (Auto) 0.3 Neut # (Auto) 10.0 H Lymph # (Auto) 1.5 Frio # (Auto) 0.8 Eos # (Auto) 0.1 Baso # (Auto) 0.0 PT 12.2 INR 1.1 APTT Sodium 140 Potassium 3.8 Chloride 101 Carbon Dioxide 25 Anion Gap 18 BUN 6 L Creatinine 0.9 Est GFR ( Amer) > 60 Est GFR (Non-Af Amer) > 60 POC Glucose (mg/dL) Random Glucose 108 H Lactic Acid Calcium 9.6 Phosphorus 1.7 L Magnesium 2.3 Total Bilirubin 0.2 AST 35 ALT 42 Alkaline Phosphatase 68 Troponin I Total Protein 7.3 Albumin 3.9 Globulin 3.4 Albumin/Globulin Ratio 1.1 Blood Type Antibody Screen Crossmatch BBK History Checked 09/23/17 09/23/17 09/23/17 05:30 06:55 09:55 WBC RBC Hgb Hct MCV MCH MCHC RDW Plt Count MPV Neut % (Auto) Lymph % (Auto) Frio % (Auto) Eos % (Auto) Baso % (Auto) Neut # (Auto) Lymph # (Auto) Frio # (Auto) Eos # (Auto) Baso # (Auto) PT INR APTT 43.5 H D Sodium Potassium Chloride Carbon Dioxide Anion Gap BUN Creatinine Est GFR ( Amer) Est GFR (Non-Af Amer) POC Glucose (mg/dL) 111 H Random Glucose Lactic Acid Calcium Phosphorus Magnesium Total Bilirubin AST ALT Alkaline Phosphatase Troponin I Total Protein Albumin Globulin Albumin/Globulin Ratio Blood Type A POSITIVE Antibody Screen Negative Crossmatch See Detail BBK History Checked Patient has bt 09/23/17 09/23/17 17:06 17:06 WBC 14.6 H RBC 4.19 Hgb 9.3 L Hct 29.6 L MCV 70.6 L MCH 22.3 L MCHC 31.6 L RDW 19.3 H Plt Count 383 MPV Neut % (Auto) Lymph % (Auto) Frio % (Auto) Eos % (Auto) Baso % (Auto) Neut # (Auto) Lymph # (Auto) Frio # (Auto) Eos # (Auto) Baso # (Auto) PT INR APTT 72.1 H D Sodium Potassium Chloride Carbon Dioxide Anion Gap BUN Creatinine Est GFR ( Amer) Est GFR (Non-Af Amer) POC Glucose (mg/dL) Random Glucose Lactic Acid Calcium Phosphorus Magnesium Total Bilirubin AST ALT Alkaline Phosphatase Troponin I Total Protein Albumin Globulin Albumin/Globulin Ratio Blood Type Antibody Screen Crossmatch BBK History Checked Assessment & Plan (1) CVA (cerebral vascular accident) Assessment and Plan: with arterial clotting rule out hypercoagulabe state vs thromboembolic/atheroscllerotic disease inherited thrombophilia w/u sent agree with antiplatelet and therapeutic anticoagulation neuro, vascular, cardio f/u Status: Acute (2) Anemia Assessment and Plan: w/u consistent with iron deficiency anemia s/p 1U PRBC will hold off on iron supplementation as rise in H/H with increase viscosity which may worsen CVA Status: Acute (3) Coagulopathy Assessment and Plan: secondary to anticoagulation Status: Acute (4) Leukocytosis Assessment and Plan: reactive to acute illness and steroids Thank you for this interesting consult. Status: Acute
[2017-09-23] MEDS ORDERED: Mannitol 12.5 gm/50 ml Inj IV ONE (18:26)
[2017-09-23] MEDS ORDERED: Dexamethasone 4 mg/1 ml IVP SCH (19:15)
--- NOTE | 2017-09-23 19:42 | CP.PCM.PN ---
Subjective - Date & Time of Evaluation Date of Evaluation: 09/23/17 Time of Evaluation: 20:30 - Subjective Subjective: F/U Acute CVA c.o pain LUE and L leg , Patent is talking with family at bedside Objective - Vital Signs/Intake and Output Vital Signs (last 24 hours): Temp Pulse Resp BP Pulse Ox 100.8 F H 95 H 11 L 162/80 H 99 09/23/17 16:00 09/23/17 16:00 09/23/17 14:00 09/23/17 16:00 09/23/17 16:00 Intake and Output: 09/23/17 09/24/17 18:59 06:59 Intake Total 0 Balance 0 - Medications Medications: Current Medications Atorvastatin Calcium (Lipitor) 20 mg PO DAILY [facility] Last Admin: 09/23/17 09:31 Dose: 20 mg Clopidogrel Bisulfate (Plavix) 75 mg PO DAILY [facility] Last Admin: 09/23/17 09:32 Dose: 75 mg Dexamethasone (Decadron Inj) 6 mg IVP Q6H [facility] Famotidine (Famotidine) 20 mg IVP Q12 [facility] Last Admin: 09/23/17 09:33 Dose: 20 mg Hydromorphone HCl (Dilaudid) 1 mg IVP Q4H PRN PRN Reason: pain 6-8 Last Admin: 09/23/17 19:28 Dose: 1 mg Lactated Ringer's (Lactated Ringer's) 1,000 mls @ 125 mls/hr IV .Q8H [facility] Last Admin: 09/23/17 17:23 Dose: 125 mls/hr Heparin Sodium/Dextrose (Heparin 25,000 Units/250ml In D5w) 25,000 units in 250 mls @ 10.5 mls/hr IV .[id number] [facility] PRN Reason: Protocol Last Titration: 09/23/17 10:40 Dose: 12 mls/hr Meclizine HCl (Antivert) 25 mg PO TID [facility] Last Admin: 09/23/17 17:19 Dose: 25 mg Sucralfate (Carafate Oral Susp) 1 gm PO QID [facility] Last Admin: 09/23/17 17:19 Dose: 1 gm Topiramate (Topamax) 50 mg PO BID [facility] Last Admin: 09/23/17 17:20 Dose: 50 mg - Labs Labs: 09/23/17 17:06 09/23/17 05:30 PT 12.2 Seconds (9.8-13.1) 09/23/17 05:30 INR 1.1 (0.9-1.2) 09/23/17 05:30 APTT 72.1 Seconds (25.6-37.1) H D 09/23/17 17:06 - Constitutional Appears: No Acute Distress - Head Exam Head Exam: NORMAL INSPECTION - Eye Exam Eye Exam: PERRL - ENT Exam ENT Exam: Normal Exam - Neck Exam Neck Exam: Normal Inspection - Respiratory Exam Respiratory Exam: Clear to Ausculation Bilateral, NORMAL BREATHING PATTERN - Cardiovascular Exam Cardiovascular Exam: REGULAR RHYTHM - GI/Abdominal Exam GI & Abdominal Exam: Soft, Normal Bowel Sounds - Extremities Exam Extremities Exam: Tenderness (L UE , LLE ) - Back Exam Back Exam: NORMAL INSPECTION - Neurological Exam Neurological Exam: Alert, CN II-XII Intact Additional comments: A Ox2, blurred vision L eye, increased movement LUE 2nd to tenderness, moves LLE and rest of extremities. - Skin Skin Exam: Warm Assessment and Plan (1) Acute CVA (cerebrovascular accident) Status: Acute (2) Acute cerebrovascular accident (CVA) of cerebellum Status: Acute (3) Severe vertigo Status: Acute (4) New infarction of cerebellum Assessment & Plan: and Left Medulla on MRI 09-23-17 Status: Acute (5) Migraine Status: Acute (6) Pain of left upper extremity Status: Acute (7) Left subclavian vein thrombosis Status: Acute (8) Vertebral artery occlusion Status: Acute (9) Anemia Status: Chronic - Assessment and Plan (Free Text) Plan: Anemia Hgb 7.6 transfuse 2 U PRBC , continue Heparin drip, discussed with [employer] Project Manager health management consultant,, continue rest of treatment
[2017-09-23] MEDS: Dexamethasone 4 mg/1 ml IVP SCH (20:09)
[2017-09-23] MEDS ORDERED: Dexamethasone 6 MG in Sodium Chloride 0.9% 50 ML IVPB SCH (22:00)
[2017-09-24] MEDS: Heparin 25,000units in D5W 25,000 UNITS/250 ML BAG IV SCH ×2 (00:10→21:41)
[2017-09-24] MEDS: Dexamethasone 4 mg/1 ml IVP SCH ×4 (01:41→18:20)
[2017-09-24] MEDS: Lactated Ringer's 1,000 ML IV SCH (01:44)
[2017-09-24 06:18] LABS: BASO # 0.1 K/uL (0.0-0.2); BASO % 0.5 % (0.0-2.0); HEMOGLOBIN 9.6 g/dL (12.0-16.0); LYMPH # 1.4 K/uL (1.0-4.3); LYMPH % 8.5 % (20.0-40.0); MEAN CELL VOLUME 70.7 fl (81.0-99.0); MEAN CORPUSCULAR HEMOGLOBIN 22.3 pg (27.0-31.0); MEAN CORPUSCULAR HGB CONC 31.5 g/dL (33.0-37.0); MEAN PLATELET VOLUME 7.5 fl (7.2-11.7); MONO # 0.2 K/uL (0.0-0.8); NEUT # 14.9 K/uL (1.8-7.0); PLATELET COUNT 438 K/uL (130-400); RBC 4.29 Mil/uL (3.80-5.20); RED CELL DISTRIBUTION WIDTH 19.7 % (11.5-14.5); WHITE BLOOD COUNT 16.6 K/uL (4.8-10.8)
[2017-09-24 06:28] LABS: ALB/GLOB RATIO 1.1 (1.0-2.1); ALBUMIN 4.2 g/dL (3.5-5.0); ALT/SGPT 35 U/L (9-52); AST/SGOT 29 U/L (14-36); BLOOD UREA NITROGEN 5 mg/dl (7-17); CALCIUM 9.9 mg/dL (8.4-10.2); GFR AFRICAN-AMERICAN > 60; GFR NON-AFRICAN AMERICAN > 60
[2017-09-24 07:01] LABS: FERRITIN 8.7 ng/Ml (6.24-137.0)
[2017-09-24] MEDS: Sodium Chloride 0.9% 1,000 ML IV SCH ×2 (08:00→15:00)
[2017-09-24] MEDS: Sucralfate 1 gm/10 ml Oral Susp UD PO SCH ×4 (08:50→20:59)
--- NOTE | 2017-09-24 09:53 | CP.PCM.PN ---
Subjective - Date & Time of Evaluation Date of Evaluation: 09/24/17 Time of Evaluation: 07:00 - Subjective Subjective: SURGERY NOTE FOR DR. AMBRIZ 47F seen and examined at bedside. Patient doing much better today she states. Pain is less, patient has improving motor function on left side. Objective - Vital Signs/Intake and Output Vital Signs (last 24 hours): Temp Pulse Resp BP Pulse Ox 98.6 F 113 H 13 161/91 H 98 09/24/17 08:00 09/24/17 08:00 09/24/17 08:00 09/24/17 08:00 09/24/17 08:00 Intake and Output: 09/24/17 09/24/17 06:59 18:59 Intake Total 1747 Output Total 2500 Balance -753 - Medications Medications: Current Medications Atorvastatin Calcium (Lipitor) 20 mg PO DAILY [facility] Last Admin: 09/23/17 09:31 Dose: 20 mg Clopidogrel Bisulfate (Plavix) 75 mg PO DAILY [facility] Last Admin: 09/23/17 09:32 Dose: 75 mg Dexamethasone (Decadron Inj) 6 mg IVP Q6H [facility] Last Admin: 09/24/17 08:51 Dose: 6 mg Famotidine (Famotidine) 20 mg IVP Q12 [facility] Last Admin: 09/24/17 08:53 Dose: 20 mg Hydromorphone HCl (Dilaudid) 1 mg IVP Q4H [facility]N PRN Reason: pain 6-8 Last Admin: 09/24/17 04:08 Dose: 1 mg Heparin Sodium/Dextrose (Heparin 25,000 Units/250ml In D5w) 25,000 units in 250 mls @ 12 mls/hr IV .[id number] [facility] PRN Reason: Protocol Last Admin: 09/24/17 00:10 Dose: 12 mls/hr Sodium Chloride (Sodium Chloride 0.9%) 1,000 mls @ 125 mls/hr IV .Q8H [facility] Stop: 09/25/17 06:53 Last Admin: 09/24/17 08:00 Dose: 125 mls/hr Meclizine HCl (Antivert) 25 mg PO TID [facility] Last Admin: 09/24/17 08:49 Dose: Not Given Sucralfate (Carafate Oral Susp) 1 gm PO QID [facility] Last Admin: 09/24/17 08:50 Dose: Not Given Topiramate (Topamax) 50 mg PO BID [facility] Last Admin: 09/24/17 08:54 Dose: Not Given - Labs Labs: 09/24/17 06:00 09/24/17 06:00 PT 12.2 Seconds (9.8-13.1) 09/23/17 05:30 INR 1.1 (0.9-1.2) 09/23/17 05:30 APTT 65.1 Seconds (25.6-37.1) H D 09/24/17 06:00 - Constitutional Appears: Non-toxic, No Acute Distress - Head Exam Head Exam: ATRAUMATIC, NORMOCEPHALIC - Eye Exam Eye Exam: EOMI, PERRL Pupil Exam: PERRL - ENT Exam ENT Exam: Mucous Membranes Moist - Neck Exam Additional comments: left shoulder weakness - Respiratory Exam Respiratory Exam: Clear to Ausculation Bilateral, NORMAL BREATHING PATTERN - Cardiovascular Exam Cardiovascular Exam: REGULAR RHYTHM, +S1, +S2 - GI/Abdominal Exam GI & Abdominal Exam: Soft, Tenderness. absent: Distended, Firm, Guarding, Rigid , Rebound - Extremities Exam Additional comments: left arm weakness, left leg weakness - Neurological Exam Neurological Exam: Alert, Awake, Oriented x3 - Psychiatric Exam Psychiatric exam: Normal Affect, Normal Mood - Skin Skin Exam: Dry, Intact, Normal Color, Warm Assessment and Plan - Assessment and Plan (Free Text) Assessment: 47F 47 F who presents with Left arm weakness and vertigo found to have occluded distal left vertebral artery and proximal left subclavian artery thrombus on MRA. MRI brain shows Small acute infarcts in the left parietal occipital region and left cerebellum Plan: - Continue Heparin gtt as per ICU - No vascular surgery intervention at this time - F/u [facility] results Discussed with Dr. Feliz Santillan, PGY2
--- NOTE | 2017-09-24 10:40 | CP.PCM.PN ---
Subjective - Date & Time of Evaluation Date of Evaluation: 09/24/17 Time of Evaluation: 10:39 - Subjective Subjective: Ms. Shahid was seen and examined at the bedside in ICU. She is more alert, coherent today in comparison from yesterday. She is able to answer questions appropriately. She denies any headache, blurred vision. She complains of left arm pain especially with tactile stimuli with left upper extremity swollen than the right upper extremity. She is currently receiving Heparin drip, no active signs of bleeding. She received blood transfusion yesterday due to her low H/H. She remains with right lower extremity colder than the left, + pedal pulses via doppler and sensation remains equal on all extremities. MRI of the brain done showed stable acute infarct in the left parietal lobe. New moderate to large acute infarct in the left medial cerebellum and left medulla. There was no untoward events overnight. Objective - Vital Signs/Intake and Output Vital Signs (last 24 hours): Temp Pulse Resp BP Pulse Ox 98.6 F 113 H 13 161/91 H 98 09/24/17 08:00 09/24/17 08:00 09/24/17 08:00 09/24/17 08:00 09/24/17 08:00 Intake and Output: 09/24/17 09/24/17 06:59 18:59 Intake Total 1747 Output Total 2500 Balance -753 - Medications Medications: Current Medications Atorvastatin Calcium (Lipitor) 20 mg PO DAILY [facility] Last Admin: 09/23/17 09:31 Dose: 20 mg Clopidogrel Bisulfate (Plavix) 75 mg PO DAILY [facility] Last Admin: 09/23/17 09:32 Dose: 75 mg Dexamethasone (Decadron Inj) 6 mg IVP Q6H [facility] Last Admin: 09/24/17 08:51 Dose: 6 mg Famotidine (Famotidine) 20 mg IVP Q12 [facility] Last Admin: 09/24/17 08:53 Dose: 20 mg Hydromorphone HCl (Dilaudid) 1 mg IVP Q4H PRN PRN Reason: pain 6-8 Last Admin: 09/24/17 10:21 Dose: 1 mg Heparin Sodium/Dextrose (Heparin 25,000 Units/250ml In D5w) 25,000 units in 250 mls @ 12 mls/hr IV .[id number] [facility] PRN Reason: Protocol Last Admin: 09/24/17 00:10 Dose: 12 mls/hr Sodium Chloride (Sodium Chloride 0.9%) 1,000 mls @ 125 mls/hr IV .Q8H [facility] Stop: 09/25/17 06:53 Last Admin: 09/24/17 08:00 Dose: 125 mls/hr Meclizine HCl (Antivert) 25 mg PO TID [facility] Last Admin: 09/24/17 08:49 Dose: Not Given Sucralfate (Carafate Oral Susp) 1 gm PO QID [facility] Last Admin: 09/24/17 08:50 Dose: Not Given Topiramate (Topamax) 50 mg PO BID [facility] Last Admin: 09/24/17 08:54 Dose: Not Given - Labs Labs: 09/24/17 06:00 09/24/17 06:00 PT 12.2 Seconds (9.8-13.1) 09/23/17 05:30 INR 1.1 (0.9-1.2) 09/23/17 05:30 APTT 65.1 Seconds (25.6-37.1) H D 09/24/17 06:00 - Constitutional Appears: No Acute Distress - Head Exam Head Exam: NORMAL INSPECTION - Neurological Exam Neurological Exam: Alert, Awake, Oriented x3 Neuro motor strength exam: Left Upper Extremity: 2/1, Right Upper Extremity: 4, Left Lower Extremity: 4, Right Lower Extremity: 4 Additional comments: She is able to answer questions appropriately. She denies any headache, blurred vision. She complains of left arm pain especially with tactile stimuli with left upper extremity swollen than the right upper extremity. She remains with right lower extremity colder than the left, + pedal pulses via doppler and sensation remains equal on all extremities. Assessment and Plan (1) Acute CVA (cerebrovascular accident) Assessment & Plan: Case discussed with Dr. Gatica, New infarct may be a result form the subclavian clot being anticoagulated with with heparin drip, continue all current medical, speech therapies. Recommend hematology consult for hypercoagulability and cardiology to r/o any coronary thrombus. The patient is schedule for GILBERT with Dr. Princess townsend. Recommend no opiates to better monitor mental status. Toradol is not possible due to her current medication of heparin drip, plavix, and her recent event of low H/H. Recommend dilaudid 0.5 mg IVP for severe pain and tylenol 650 mg PO Q 8 PRN for mild and moderate pain. Status: Acute
--- NOTE | 2017-09-24 14:32 | CP.PCM.PN ---
Subjective - Date & Time of Evaluation Date of Evaluation: 09/24/17 Time of Evaluation: 14:30 - Subjective Subjective: PT WITHOUT MUCH IMPROVEMENT NO EVIDENCE OF GIB ON ANTICOAG Objective - Vital Signs/Intake and Output Vital Signs (last 24 hours): Temp Pulse Resp BP Pulse Ox 98.1 F 101 H 9 L 166/87 H 99 09/24/17 12:00 09/24/17 12:00 09/24/17 12:00 09/24/17 12:00 09/24/17 12:00 Intake and Output: 09/24/17 09/24/17 06:59 18:59 Intake Total 1747 Output Total 2500 800 Balance -753 -800 - Medications Medications: Current Medications Acetaminophen (Tylenol 325mg Tab) 650 mg PO Q8 PRN PRN Reason: Pain, Mild (1-3) Atorvastatin Calcium (Lipitor) 20 mg PO DAILY [facility] Last Admin: 09/24/17 12:11 Dose: 20 mg Clopidogrel Bisulfate (Plavix) 75 mg PO DAILY [facility] Last Admin: 09/24/17 12:12 Dose: 75 mg Dexamethasone (Decadron Inj) 6 mg IVP Q6H [facility] Last Admin: 09/24/17 12:16 Dose: 6 mg Docusate Sodium (Colace) 100 mg PO BID [facility] Famotidine (Famotidine) 20 mg IVP Q12 [facility] Last Admin: 09/24/17 08:53 Dose: 20 mg Hydromorphone HCl (Dilaudid) 0.5 mg IVP Q4 PRN PRN Reason: Pain, severe (8-10) Stop: 09/26/17 10:57 Heparin Sodium/Dextrose (Heparin 25,000 Units/250ml In D5w) 25,000 units in 250 mls @ 12 mls/hr IV .[id number] [facility] PRN Reason: Protocol Last Admin: 09/24/17 00:10 Dose: 12 mls/hr Sodium Chloride (Sodium Chloride 0.9%) 1,000 mls @ 125 mls/hr IV .Q8H [facility] Stop: 09/25/17 06:53 Last Admin: 09/24/17 08:00 Dose: 125 mls/hr Lactulose (Enulose) 20 gm PO DAILY PRN PRN Reason: Constipation Meclizine HCl (Antivert) 25 mg PO TID [facility] Last Admin: 09/24/17 12:10 Dose: 25 mg Sucralfate (Carafate Oral Susp) 1 gm PO QID [facility] Last Admin: 09/24/17 12:10 Dose: 1 gm Topiramate (Topamax) 50 mg PO BID [facility] Last Admin: 09/24/17 08:54 Dose: Not Given - Labs Labs: 09/24/17 06:00 09/24/17 06:00 PT 12.2 Seconds (9.8-13.1) 09/23/17 05:30 INR 1.1 (0.9-1.2) 09/23/17 05:30 APTT 65.1 Seconds (25.6-37.1) H D 09/24/17 06:00 Assessment and Plan (1) Subclavian artery thrombosis Status: Acute (2) History of bleeding peptic ulcer Status: Acute (3) Acute CVA (cerebrovascular accident) Status: Acute (4) Pain of left upper extremity Status: Acute (5) Severe dizziness Status: Acute (6) PUD (peptic ulcer disease) Status: Acute (7) Syncope Status: Acute - Assessment and Plan (Free Text) Plan: UNABLE TO SCHEDULE GIL[facility] TODAY DUE TO ECHO LAB SCHEDULE. WILL PLAN FOR ECHO AT 230 OR 3 PM TOMORROW. CONT CURRENT CARE.
[2017-09-24 15:16] LABS: LYMPHOCYTE 13 % (20-50); MONOCYTE 1 % (0-10); NEUTROPHIL 86 % (42-75); TOTAL CELLS COUNTED 100
[2017-09-24 15:17] LABS: PLATELET ESTIMATE SLIGHTLY INCREASED (NORMAL)
[2017-09-24 15:18] LABS: ANISOCYTOSIS MODERATE; HYPOCHROMIC SLIGHT; MICROCYTOSIS SLIGHT; OVALOCYTES SLIGHT; SCHISTOCYTES SLIGHT; TEARDROP CELLS SLIGHT
--- NOTE | 2017-09-24 16:45 | CP.PCM.PN ---
Subjective - Date & Time of Evaluation Date of Evaluation: 09/24/17 Time of Evaluation: 13:40 - Subjective Subjective: F/U Acute CVA Awake , able totalk with normal speech , was complaining of dysphagia with liquids , but nurses stated She was able to take pills with water , Patient on regular food, She was seen by Speech Therapy. Objective - Vital Signs/Intake and Output Vital Signs (last 24 hours): Temp Pulse Resp BP Pulse Ox 98.5 F 97 H 12 166/90 H 97 09/24/17 16:30 09/24/17 16:30 09/24/17 16:30 09/24/17 16:30 09/24/17 16:30 Intake and Output: 09/24/17 09/24/17 06:59 18:59 Intake Total 1747 1544 Output Total 2929 2600 Balance -753 -1056 - Medications Medications: Current Medications Acetaminophen (Tylenol 325mg Tab) 650 mg PO Q8 PRN PRN Reason: Pain, Mild (1-3) Atorvastatin Calcium (Lipitor) 20 mg PO DAILY [facility] Last Admin: 09/24/17 12:11 Dose: 20 mg Clopidogrel Bisulfate (Plavix) 75 mg PO DAILY [facility] Last Admin: 09/24/17 12:12 Dose: 75 mg Dexamethasone (Decadron Inj) 6 mg IVP Q6H [facility] Last Admin: 09/24/17 12:16 Dose: 6 mg Docusate Sodium (Colace) 100 mg PO BID [facility] Last Admin: 09/24/17 16:12 Dose: 100 mg Famotidine (Famotidine) 20 mg IVP Q12 [facility] Last Admin: 09/24/17 08:53 Dose: 20 mg Hydromorphone HCl (Dilaudid) 0.5 mg IVP Q4 PRN PRN Reason: Pain, severe (8-10) Stop: 09/26/17 10:57 Heparin Sodium/Dextrose (Heparin 25,000 Units/250ml In D5w) 25,000 units in 250 mls @ 12 mls/hr IV .[id number] [facility] PRN Reason: Protocol Last Admin: 09/24/17 00:10 Dose: 12 mls/hr Sodium Chloride (Sodium Chloride 0.9%) 1,000 mls @ 125 mls/hr IV .Q8H [facility] Stop: 09/25/17 06:53 Last Admin: 09/24/17 15:00 Dose: 125 mls/hr Lactulose (Enulose) 20 gm PO DAILY PRN PRN Reason: Constipation Meclizine HCl (Antivert) 25 mg PO TID [facility] Last Admin: 09/24/17 16:09 Dose: 25 mg Sucralfate (Carafate Oral Susp) 1 gm PO QID [facility] Last Admin: 09/24/17 16:09 Dose: 1 gm Topiramate (Topamax) 50 mg PO BID [facility] Last Admin: 09/24/17 16:13 Dose: 50 mg - Labs Labs: 09/24/17 06:00 09/24/17 06:00 PT 12.2 Seconds (9.8-13.1) 09/23/17 05:30 INR 1.1 (0.9-1.2) 09/23/17 05:30 APTT 65.1 Seconds (25.6-37.1) H D 09/24/17 06:00 - Constitutional Appears: No Acute Distress - Head Exam Head Exam: NORMAL INSPECTION - Eye Exam Eye Exam: PERRL - ENT Exam ENT Exam: Normal Exam - Neck Exam Neck Exam: Normal Inspection - Respiratory Exam Respiratory Exam: Clear to Ausculation Bilateral, NORMAL BREATHING PATTERN - Cardiovascular Exam Cardiovascular Exam: REGULAR RHYTHM - GI/Abdominal Exam GI & Abdominal Exam: Soft, Normal Bowel Sounds - Extremities Exam Extremities Exam: Tenderness (LUE > LLE, RLE colder than LLE , pedal pulses 2 +) - Neurological Exam Neurological Exam: Alert Additional comments: Ox2, dizziness, blurred vision L eye, mild increase ROM LUE , moves LLE. - Skin Skin Exam: Warm Assessment and Plan (1) Acute CVA (cerebrovascular accident) Status: Acute (2) Acute cerebrovascular accident (CVA) of cerebellum Status: Acute (3) New infarction of cerebellum Status: Acute (4) Migraine Status: Acute (5) Severe vertigo Status: Acute (6) Pain of left upper extremity Assessment & Plan: Hgb 9.6 , continue Heparin drip Status: Acute (7) Left subclavian vein thrombosis Status: Acute (8) Anemia Status: Chronic (9) Vertebral artery occlusion Status: Acute - Assessment and Plan (Free Text) Plan: continue Heparin drip, monitor Hgb , f/u genetic markers , Cardiology for GILBERT, continue rest of treatment
[2017-09-24] MEDS: HYDROmorphone 0.5 mg/0.5 ml ISec IVP PRN (17:56)
--- NOTE | 2017-09-24 20:41 | MRI ---
EXAM: MR Cervical Spine Without Intravenous Contrast EXAM DATE/TIME: 09/23/2017 8:50 AM CLINICAL HISTORY: 47 years old, female; Signs and symptoms; Other: Unequal temperature of the upper extremities TECHNIQUE: Magnetic resonance images of the cervical spine without intravenous contrast in multiple planes. COMPARISON: No relevant prior studies available. FINDINGS: VERTEBRAE: No evidence of significant vertebral height loss/compression deformity. No evidence of significant vertebral subluxation. MARROW: No evidence of significant vertebral marrow signal abnormality. SPINAL CORD: No evidence of significant signal abnormality in the spinal cord. SOFT TISSUES: No acute abnormality identified. DISCS/SPINAL CANAL/NEURAL FORAMINA: C2-C3: No significant disc disease. No stenosis. C3-C4: No significant disc disease. No stenosis. C4-C5: At C4-C5, there is a posterior disc bulge/osteophyte complex and ligamentum flavum hypertrophy, causing moderate spinal canal stenosis. C5-C6: At C5-C6, there is a posterior disc bulge/osteophyte complex and ligamentum flavum hypertrophy, causing mild spinal canal stenosis. C6-C7: No significant disc disease. No stenosis. C7-T1: No significant disc disease. No stenosis. IMPRESSION: - Spinal canal stenosis at C4-5 and C5-6, secondary to degenerative changes, as described. - See above for remaining findings.
--- NOTE | 2017-09-24 20:49 | MRI ---
EXAM: MR Thoracic Spine Without Intravenous Contrast EXAM DATE/TIME: 09/23/2017 8:49 AM CLINICAL HISTORY: 47 years old, female; Signs and symptoms; Other: Unequal temperature of the lower extremities; Additional info: Unequal temperature of the lower extremities. TECHNIQUE: Magnetic resonance images of the thoracic spine without intravenous contrast in multiple planes. COMPARISON: No relevant prior studies available. FINDINGS: LIMITATIONS: Mild streak/motion artifact. VERTEBRAE: No evidence of significant vertebral subluxation. No evidence of significant vertebral height loss/compression deformity. MARROW: Small, round, lesions within the T7 and T5 vertebra, most compatible with vertebral hemangiomas. DISCS/SPINAL CANAL/NEURAL FORAMINA: Mild, multilevel degenerative disc disease. There is disc desiccation at multiple levels. No evidence of significant spinal canal stenosis. SPINAL CORD: No evidence of significant signal abnormality in the spinal cord. SOFT TISSUES: No acute abnormality identified. IMPRESSION: - No evidence of spinal canal stenosis or other significant abnormality. - See above for remaining findings.
--- NOTE | 2017-09-24 21:50 | CP.PCM.PN ---
Subjective - Date & Time of Evaluation Date of Evaluation: 09/24/17 Time of Evaluation: 19:55 - Subjective Subjective: No complaints. Objective - Vital Signs/Intake and Output Vital Signs (last 24 hours): Temp Pulse Resp BP Pulse Ox 98.5 F 105 H 12 172/79 H 96 09/24/17 16:30 09/24/17 17:53 09/24/17 17:53 09/24/17 18:01 09/24/17 17:53 Intake and Output: 09/24/17 09/25/17 18:59 06:59 Intake Total 1544 250 Output Total 3600 Balance -2056 250 - Medications Medications: Current Medications Acetaminophen (Tylenol 325mg Tab) 650 mg PO Q8 PRN PRN Reason: Pain, Mild (1-3) Atorvastatin Calcium (Lipitor) 20 mg PO DAILY [facility] Last Admin: 09/24/17 12:11 Dose: 20 mg Clopidogrel Bisulfate (Plavix) 75 mg PO DAILY [facility] Last Admin: 09/24/17 12:12 Dose: 75 mg Dexamethasone (Decadron Inj) 6 mg IVP Q6H [facility] Last Admin: 09/24/17 18:20 Dose: 6 mg Docusate Sodium (Colace) 100 mg PO BID [facility] Last Admin: 09/24/17 16:12 Dose: 100 mg Famotidine (Famotidine) 20 mg IVP Q12 [facility] Last Admin: 09/24/17 20:54 Dose: 20 mg Hydromorphone HCl (Dilaudid) 0.5 mg IVP Q4 PRN PRN Reason: Pain, severe (8-10) Stop: 09/26/17 10:57 Last Admin: 09/24/17 17:56 Dose: 0.5 mg Heparin Sodium/Dextrose (Heparin 25,000 Units/250ml In D5w) 25,000 units in 250 mls @ 12 mls/hr IV .[id number] [facility] PRN Reason: Protocol Last Admin: 09/24/17 21:41 Dose: 12 mls/hr Sodium Chloride (Sodium Chloride 0.9%) 1,000 mls @ 125 mls/hr IV .Q8H [facility] Stop: 09/25/17 06:53 Last Admin: 09/24/17 15:00 Dose: 125 mls/hr Lactulose (Enulose) 20 gm PO DAILY PRN PRN Reason: Constipation Meclizine HCl (Antivert) 25 mg PO TID [facility] Last Admin: 09/24/17 16:09 Dose: 25 mg Sucralfate (Carafate Oral Susp) 1 gm PO QID [facility] Last Admin: 09/24/17 20:59 Dose: 1 gm Topiramate (Topamax) 50 mg PO BID [facility] Last Admin: 09/24/17 16:13 Dose: 50 mg - Labs Labs: 09/24/17 06:00 09/24/17 06:00 PT 12.2 Seconds (9.8-13.1) 09/23/17 05:30 INR 1.1 (0.9-1.2) 09/23/17 05:30 APTT 65.1 Seconds (25.6-37.1) H D 09/24/17 06:00 - Head Exam Head Exam: ATRAUMATIC - Eye Exam Eye Exam: Normal appearance - ENT Exam ENT Exam: Mucous Membranes Dry - Respiratory Exam Respiratory Exam: NORMAL BREATHING PATTERN - Cardiovascular Exam Cardiovascular Exam: +S1, +S2 - GI/Abdominal Exam GI & Abdominal Exam: Normal Bowel Sounds Assessment and Plan (1) CVA (cerebral vascular accident) Assessment & Plan: on heparin drip and antiplatelet cardio w/u, neuro f/u inherited thrombophilia w/u sent Status: Acute (2) Anemia Assessment & Plan: iron deficiency anemia s/p 1U PRBC will hold off on iron supplementation as increasing hematocrit will increase viscosity which may worsen stroke symptoms Status: Acute (3) Coagulopathy Assessment & Plan: on anticoagulation Status: Acute (4) Leukocytosis Assessment & Plan: on steroids Status: Acute
[2017-09-25] MEDS: HYDROmorphone 0.5 mg/0.5 ml ISec IVP PRN ×3 (00:14→20:30)
[2017-09-25] MEDS: Dexamethasone 4 mg/1 ml IVP SCH ×4 (01:21→18:17)
[2017-09-25] MEDS: Sodium Chloride 0.9% 1,000 ML IV SCH (01:24)
[2017-09-25 05:45] LABS: BASO % 0.1 % (0.0-2.0); HEMOGLOBIN 9.1 g/dL (12.0-16.0); MEAN CELL VOLUME 70.7 fl (81.0-99.0); MEAN CORPUSCULAR HEMOGLOBIN 21.8 pg (27.0-31.0); MEAN CORPUSCULAR HGB CONC 30.9 g/dL (33.0-37.0); MEAN PLATELET VOLUME 7.8 fl (7.2-11.7); MONO # 1.2 K/uL (0.0-0.8); MONO % 3.7 % (0.0-10.0); NEUT # 29.9 K/uL (1.8-7.0); NEUT % 90.2 % (50.0-75.0); PLATELET COUNT 438 K/uL (130-400); RBC 4.15 Mil/uL (3.80-5.20); WHITE BLOOD COUNT 33.1 K/uL (4.8-10.8)
[2017-09-25 06:19] LABS: ALB/GLOB RATIO 1.1 (1.0-2.1); ALBUMIN 3.6 g/dL (3.5-5.0); ALT/SGPT 27 U/L (9-52); AST/SGOT 23 U/L (14-36); BLOOD UREA NITROGEN 9 mg/dl (7-17); CALCIUM 9.2 mg/dL (8.4-10.2); GFR AFRICAN-AMERICAN > 60; GFR NON-AFRICAN AMERICAN > 60
--- NOTE | 2017-09-25 08:34 | PN ---
CRITICAL CARE PROGRESS NOTE DATE: 09/24/2017 LOCATION: The patient is in ICU, bed 431 TIME SPENT: 45 minutes. SUBJECTIVE: Seen and evaluated at the bedside. Case discussed in multidisciplinary ICU rounds. Past medical, surgical, and social history reviewed. A 47-year-old female with history significant for recurrent migraine, found face down in the bathtub at home, admitted to [facility], workup negative, discharge, brought to emergency room at [facility], and admitted for further evaluation of headache, left arm weakness, and pain. CT and MRI of brain showed left parietal infarct as well as cerebellar with left vertebral artery occlusion. Left subclavian artery thrombosis, currently on IV heparin drip, and seen by Neurology and Cardiology consult. Initial transthoracic echo was reportedly normal, currently remains wakeful, and follows commands appropriate. Complaining of limited range of movement of left arm and pain on palpation, complaining of abdominal distention from urinary retention, subsequently resolved after inserting a Muniz catheter. No respiratory distress, [id number] headache, and weakness of left leg. OBJECTIVE: VITAL SIGNS: Current vital signs; temperature 98.1, heart rate 101, blood pressure 166/87, respiratory rate 9 to 10, and saturation 99% on FIO2 of 2 L nasal cannula. Intake 1747 and output 2550, negative balance, and weight 143 pounds. HEAD, EYES, EARS, NOSE AND THROAT: Pupils reactive. Conjunctivae pink. Sclerae are white. NECK: Supple. Trachea central. CHEST: Bilateral breath sounds diminished in intensity. Clear to auscultation anteriorly and laterally. HEART: Rhythm regular. S1 and S2 normal in intensity. No S3, S4, or gallop. No audible murmur. ABDOMEN: Bowel sounds present and soft. Liver and spleen not palpable. Bladder not distended. EXTREMITIES: No clubbing, cyanosis, or edema. DP palpable. No palpable cord. NEUROLOGIC: Weakness of left arm, able to lift left arm of the bed by 30 degrees. No cranial nerve deficit. Patellar 2+, plantar flexor. CURRENT MEDICATIONS: Tylenol 650 q.8 hours p.r.n., Lipitor 20 mg p.o. daily, Plavix 75 mg daily, Decadron 6 mg IV q.6 hours, Colace 100 p.o. b.i.d., Pepcid 20 mg IV q.12 hours, heparin drip as per protocol, Topamax 50 mg b.i.d., sucralfate 1 g p.o. b.i.d., sodium chloride normal saline at 125 mL per hour, Antivert 25 mg 3 times daily, lactulose 20 g p.o. p.r.n., and Dilaudid 0.5 mg IV q.4 hours p.r.n.. LABORATORY DATA: WBC 16.6, hemoglobin 9.6, hematocrit 30.4, platelet count 438, neutrophils 90, and lymphocytes 8.5. PTT 65.1. SMA-7; sodium 142, potassium 4.3, chloride 104, CO2 of 20, blood urea nitrogen 5, creatinine of 0.8, random glucose 155, calcium 9.9, phosphorus 1.8, magnesium 2.1, ferritin 8.7, total bilirubin 0.3, AST 29, ALT 35, alkaline phosphatase 70, total protein 7.9, and albumin 4.2. Urine drug screen positive for opiates. Microbiology, none reported. IMPRESSION AND PLAN: 1. A 47-year-old female with headache and pain and weakness of left arm. CT and MRI consistent with left parietal infarct and a new cerebellar infarct with left vertebral artery occlusion and left subclavian artery thrombosis, on IV heparin drip. Workup by Neurology and Cardiology in progress. Transthoracic echo, negative for vegetations. Normal left ventricular function, and scheduled for transesophageal echo in the morning. Continue heparin with monitoring for further drop in hemoglobin. 2. Respiratory status stable. No acute infiltrate, mild atelectasis. Continue oxygen supplement. 3. Cardiac: No history of cardiac arrhythmia/atrial fibrillation, on IV heparin for left subclavian vein thrombosis and for left vertebral artery thrombosis with infarct involving left parietal and cerebellar. 4. Gastrointestinal: No acute issues noted. 5. Endocrine: Maintain a blood sugar less than 180, current between 108 to 155. Speech and swallow evaluation and if tolerated, can resume diet as tolerated. 6. Renal: No acute issues noted. Continue deep venous thrombosis prophylaxis, currently on heparin drip. Followup hypercoagulable workup pending. George Lorenzo MD [facility] # [id number]
[2017-09-25] MEDS ORDERED: Metoprolol Succinate 25 mg XL Tab PO SCH (09:00)
--- NOTE | 2017-09-25 09:21 | CP.PCM.PN ---
Subjective - Date & Time of Evaluation Date of Evaluation: 09/25/17 Time of Evaluation: 07:10 - Subjective Subjective: SURGERY PROGRESS NOTE FOR DR. AMBRIZ 47F seen and examined at bedside. No acute events overnight. Patient states she is doing well, continues to have left sided weakness. Objective - Vital Signs/Intake and Output Vital Signs (last 24 hours): Temp Pulse Resp BP Pulse Ox 98.1 F 92 H 15 179/98 H 97 09/25/17 08:00 09/25/17 08:00 09/25/17 08:00 09/25/17 08:00 09/25/17 08:00 Intake and Output: 09/25/17 09/25/17 06:59 18:59 Intake Total 1745 Output Total 850 Balance 895 - Medications Medications: Current Medications Acetaminophen (Tylenol 325mg Tab) 650 mg PO Q8 PRN PRN Reason: Pain, Mild (1-3) Atorvastatin Calcium (Lipitor) 20 mg PO DAILY [facility] Last Admin: 09/24/17 12:11 Dose: 20 mg Clopidogrel Bisulfate (Plavix) 75 mg PO DAILY [facility] Last Admin: 09/24/17 12:12 Dose: 75 mg Dexamethasone (Decadron Inj) 6 mg IVP Q6H [facility] Last Admin: 09/25/17 01:21 Dose: 6 mg Docusate Sodium (Colace) 100 mg PO BID [facility] Last Admin: 09/24/17 16:12 Dose: 100 mg Famotidine (Famotidine) 20 mg IVP Q12 [facility] Last Admin: 09/24/17 20:54 Dose: 20 mg Hydromorphone HCl (Dilaudid) 0.5 mg IVP Q4 PRN PRN Reason: Pain, severe (8-10) Stop: 09/26/17 10:57 Last Admin: 09/25/17 00:14 Dose: 0.5 mg Lactulose (Enulose) 20 gm PO DAILY PRN PRN Reason: Constipation Meclizine HCl (Antivert) 25 mg PO TID [facility] Last Admin: 09/24/17 16:09 Dose: 25 mg Metoprolol Tartrate (Lopressor) 12.5 mg PO Q12 [facility] Sucralfate (Carafate Oral Susp) 1 gm PO QID [facility] Last Admin: 09/24/17 20:59 Dose: 1 gm Topiramate (Topamax) 50 mg PO BID [facility] Last Admin: 09/24/17 16:13 Dose: 50 mg - Labs Labs: 09/25/17 04:30 09/25/17 04:30 PT 12.2 Seconds (9.8-13.1) 09/23/17 05:30 INR 1.1 (0.9-1.2) 09/23/17 05:30 APTT 77.9 Seconds (25.6-37.1) H D 09/25/17 04:30 - Constitutional Appears: Well, Non-toxic, No Acute Distress - Eye Exam Eye Exam: EOMI, PERRL - Respiratory Exam Respiratory Exam: Clear to Ausculation Bilateral, NORMAL BREATHING PATTERN - Cardiovascular Exam Cardiovascular Exam: REGULAR RHYTHM, +S1, +S2 - GI/Abdominal Exam GI & Abdominal Exam: Soft. absent: Distended, Firm, Guarding, Rigid, Tenderness , Rebound - Extremities Exam Additional comments: left sided weakness - Neurological Exam Neurological Exam: Alert, Awake Additional comments: left UE/LE weakness - Skin Skin Exam: Dry, Intact, Normal Color, Warm Assessment and Plan - Assessment and Plan (Free Text) Assessment: 47 F who presents with Left arm weakness and vertigo found to have occluded distal left vertebral artery and proximal left subclavian artery thrombus on MRA. MRI brain shows Small acute infarcts in the left parietal occipital region and left cerebellum Plan: - f/u MRI reports - scheduled for [facility] today - maintain anticoagulation Further recs discus with Dr. Feliz Santillan, PGY2
[2017-09-25] MEDS: Sucralfate 1 gm/10 ml Oral Susp UD PO SCH ×4 (09:33→22:03)
[2017-09-25 11:09] LABS: BANDS 3 % (0-2); LYMPHOCYTE 4 % (20-50); MONOCYTE 2 % (0-10); NEUTROPHIL 91 % (42-75); TOTAL CELLS COUNTED 100
[2017-09-25 11:12] LABS: ANISOCYTOSIS SLIGHT; PLATELET ESTIMATE NORMAL (NORMAL); POIKILOCYTOSIS SLIGHT
[2017-09-25 11:13] LABS: MICROCYTOSIS SLIGHT; OVALOCYTES SLIGHT; SPHEROCYTES SLIGHT
[2017-09-25 11:14] LABS: GIANT PLATELETS PRESENT; LARGE PLATELETS PRESENT
--- NOTE | 2017-09-25 12:53 | MRI ---
PROCEDURE: MR LUMBAR SPINE WITHOUT CONTRAST HISTORY: unequal temperature of lower extremities COMPARISON: None available. TECHNIQUE: Multiecho multiplanar sequences were performed through the lumbar spine without the use of intravenous contrast. FINDINGS: Normal lumbar lordosis. Vertebral body heights are preserved. The L5 vertebral body is transitional and appears sacralized. The lumbar levels are come confirmed based on thoracic spine MRI counter also performed 09/24/2017. Please see separate images. Marrow signal appears rather dark in all sequences which can be seen in cases of anemia or other myeloproliferative processes. Clinically correlate further. No focal suspicious lesion identified throughout. Conus medullaris unremarkable at the level of T12. Prevertebral and paraspinal soft tissues are unremarkable. T12-L1: No disc herniation, spinal canal stenosis or neural foraminal narrowing. L1-2: No disc herniation, spinal canal stenosis or neural foraminal narrowing. L2-3: No disc herniation, spinal canal stenosis or neural foraminal narrowing. L3-4: No disc herniation, spinal canal stenosis or neural foraminal narrowing. L4-5: Minimal disc bulging is appreciated with [id number] facet arthropathy but without significant central canal stenosis occurring. No neural foraminal stenosis bilaterally. L5-S1: No disc herniation, spinal canal stenosis or neural foraminal narrowing. OTHER FINDINGS: None. IMPRESSION: No disc herniation, central canal or neural foraminal stenosis is appreciated throughout the lumbar spine. The central canal appears widely patent in this patient. Note is made of a sacralized L5 vertebral body, with L1 vertebral body location confirmed on encounter form thoracic spine MRI also performed 09/24/2017.
[2017-09-25] MEDS ORDERED: Etomidate 20 mg/10ml Inj IV ONE (14:40)
[2017-09-25] MEDS ORDERED: Midazolam 2 MG/2 ML VIAL ONE (14:40)
[2017-09-25] MEDS ORDERED: Propofol 10 mg/ml Inj (20 ML) ONE (14:44)
--- NOTE | 2017-09-25 15:19 | CP.PCM.PN ---
Subjective - Date & Time of Evaluation Date of Evaluation: 09/25/17 Time of Evaluation: 15:16 - Subjective Subjective: PT APPEARS IMPROVED. NO COMPLAINTS. INFORMED WRITTEN CONSENT OBTAINED FOR GILBERT , FAMILY PRESENT. Objective - Vital Signs/Intake and Output Vital Signs (last 24 hours): Temp Pulse Resp BP Pulse Ox 99 F 91 H 16 171/86 H 99 09/25/17 12:00 09/25/17 14:00 09/25/17 14:00 09/25/17 14:00 09/25/17 14:00 Intake and Output: 09/25/17 09/25/17 06:59 18:59 Intake Total 1745 Output Total 850 Balance 895 - Medications Medications: Current Medications Acetaminophen (Tylenol 325mg Tab) 650 mg PO Q8 PRN PRN Reason: Pain, Mild (1-3) Atorvastatin Calcium (Lipitor) 20 mg PO DAILY [facility] Last Admin: 09/24/17 12:11 Dose: 20 mg Clopidogrel Bisulfate (Plavix) 75 mg PO DAILY [facility] Last Admin: 09/24/17 12:12 Dose: 75 mg Dexamethasone (Decadron Inj) 6 mg IVP Q6H [facility] Last Admin: 09/25/17 12:39 Dose: 6 mg Docusate Sodium (Colace) 100 mg PO BID [facility] Last Admin: 09/25/17 09:34 Dose: Not Given Famotidine (Famotidine) 20 mg IVP Q12 [facility] Last Admin: 09/25/17 09:35 Dose: 20 mg Hydromorphone HCl (Dilaudid) 0.5 mg IVP Q4 PRN PRN Reason: Pain, severe (8-10) Stop: 09/26/17 10:57 Last Admin: 09/25/17 10:12 Dose: 0.5 mg Heparin Sodium/Dextrose (Heparin 25,000 Units/250ml In D5w) 25,000 units in 250 mls @ 10.5 mls/hr IV .[id number] [facility] PRN Reason: Protocol Lactulose (Enulose) 20 gm PO DAILY PRN PRN Reason: Constipation Meclizine HCl (Antivert) 25 mg PO TID [facility] Last Admin: 09/25/17 12:38 Dose: Not Given Metoprolol Tartrate (Lopressor) 12.5 mg PO Q12 [facility] Last Admin: 09/25/17 09:36 Dose: 12.5 mg Sucralfate (Carafate Oral Susp) 1 gm PO QID [facility] Last Admin: 09/25/17 12:38 Dose: Not Given Topiramate (Topamax) 50 mg PO BID [facility] Last Admin: 09/25/17 09:36 Dose: Not Given - Labs Labs: 09/25/17 04:30 09/25/17 04:30 PT 12.2 Seconds (9.8-13.1) 09/23/17 05:30 INR 1.1 (0.9-1.2) 09/23/17 05:30 APTT 59.0 Seconds (25.6-37.1) H D 09/25/17 11:41 - Constitutional Appears: Well - Head Exam Head Exam: ATRAUMATIC, NORMAL INSPECTION, NORMOCEPHALIC - Eye Exam Eye Exam: EOMI, Normal appearance, PERRL. absent: Conjunctival injection, Nystagmus, Periorbital swelling, Periorbital tenderness, Scleral icterus Pupil Exam: NORMAL ACCOMODATION, PERRL - ENT Exam ENT Exam: Mucous Membranes Moist, Normal Exam. absent: Mucous Membranes Dry, Normal External Ear Exam, Normal Oropharynx, TM's Normal Bilaterally - Neck Exam Neck Exam: Full ROM, Normal Inspection. absent: Lymphadenopathy, Meningismus, Tenderness, Thyromegaly - Respiratory Exam Respiratory Exam: Clear to Ausculation Bilateral, NORMAL BREATHING PATTERN. absent: Accessory Muscle Use, Chest Wall Tenderness, Decreased Breath Sounds, Prolonged Expiratory Phase, Rales, Rhonchi, Wheezes, Respiratory Distress, Stridor - Cardiovascular Exam Cardiovascular Exam: REGULAR RHYTHM, +S1, +S2, Murmur. absent: Bradycardia, Tachycardia, Clicks, Diastolic murmur, Gallop, Irregular Rhythm, JVD, RRR, Rubs , +S4 - GI/Abdominal Exam GI & Abdominal Exam: Soft, Normal Bowel Sounds. absent: Bruit, Distended, Firm , Guarding, Rigid, Tenderness, Diminished Bowel Sounds, Hernia, Hyperactive Bowel Sounds, Hypoactive Bowel Sounds, Organomegaly, Pulsatile Mass, Rebound, Mass - Extremities Exam Extremities Exam: Full ROM, Normal Capillary Refill, Normal Inspection, Pedal Edema. absent: Calf Tenderness, Joint Swelling, Tenderness - Back Exam Back Exam: NORMAL INSPECTION. absent: CVA tenderness (L), CVA tenderness (R), Full ROM, muscle spasm, paraspinal tenderness, rash noted, tenderness, vertebral tenderness - Neurological Exam Neurological Exam: Alert, Awake, CN II-XII Intact, Oriented x3 - Psychiatric Exam Psychiatric exam: Normal Affect, Normal Mood. absent: Agitated, Anxious, Depressed, Flat Affect, Homicidal Ideation, Manic, Suicidal Ideation - Skin Skin Exam: Dry, Intact, Normal Color, Warm. absent: Abrasion, Cyanosis, Diaphoretic, Erythema, Mottled, Pallor, Pallor, Petechiae, Rash, Urticaria, Vesicles Assessment and Plan (1) Subclavian artery thrombosis Status: Acute (2) History of bleeding peptic ulcer Status: Acute (3) Acute CVA (cerebrovascular accident) Status: Acute (4) Pain of left upper extremity Status: Acute (5) Severe dizziness Status: Acute (6) PUD (peptic ulcer disease) Status: Acute (7) Syncope Status: Acute - Assessment and Plan (Free Text) Plan: GILBERT REVEALS NO THROMBUS, NML VELOCITY IN [place], AND NO ASD. SALINE CONTRAST STUDY NEGATIVE. CONT HEPARIN. ON STEROIDS. WBC ELEVATED, MAY BE SECONDARY TO STEROIDS. DISCUSSED RESULTS WITH FAM.
--- NOTE | 2017-09-25 15:33 | CP.PCM.PN ---
Subjective - Date & Time of Evaluation Date of Evaluation: 09/25/17 Time of Evaluation: 13:00 - Subjective Subjective: Feeling better, for GILBERT today Objective - Vital Signs/Intake and Output Vital Signs (last 24 hours): Temp Pulse Resp BP Pulse Ox 99 F 87 9 L 123/72 98 09/25/17 12:00 09/25/17 15:15 09/25/17 15:15 09/25/17 15:15 09/25/17 15:15 Intake and Output: 09/25/17 09/25/17 06:59 18:59 Intake Total 1745 Output Total 850 Balance 895 - Medications Medications: Current Medications Acetaminophen (Tylenol 325mg Tab) 650 mg PO Q8 PRN PRN Reason: Pain, Mild (1-3) Atorvastatin Calcium (Lipitor) 20 mg PO DAILY [facility] Last Admin: 09/24/17 12:11 Dose: 20 mg Clopidogrel Bisulfate (Plavix) 75 mg PO DAILY [facility] Last Admin: 09/24/17 12:12 Dose: 75 mg Dexamethasone (Decadron Inj) 6 mg IVP Q6H [facility] Last Admin: 09/25/17 12:39 Dose: 6 mg Docusate Sodium (Colace) 100 mg PO BID [facility] Last Admin: 09/25/17 09:34 Dose: Not Given Famotidine (Famotidine) 20 mg IVP Q12 [facility] Last Admin: 09/25/17 09:35 Dose: 20 mg Hydromorphone HCl (Dilaudid) 0.5 mg IVP Q4 PRN PRN Reason: Pain, severe (8-10) Stop: 09/26/17 10:57 Last Admin: 09/25/17 10:12 Dose: 0.5 mg Heparin Sodium/Dextrose (Heparin 25,000 Units/250ml In D5w) 25,000 units in 250 mls @ 10.5 mls/hr IV .[id number] [facility] PRN Reason: Protocol Lactulose (Enulose) 20 gm PO DAILY PRN PRN Reason: Constipation Meclizine HCl (Antivert) 25 mg PO TID [facility] Last Admin: 09/25/17 12:38 Dose: Not Given Metoprolol Tartrate (Lopressor) 12.5 mg PO Q12 [facility] Last Admin: 09/25/17 09:36 Dose: 12.5 mg Sucralfate (Carafate Oral Susp) 1 gm PO QID [facility] Last Admin: 09/25/17 12:38 Dose: Not Given Topiramate (Topamax) 50 mg PO BID [facility] Last Admin: 09/25/17 09:36 Dose: Not Given - Labs Labs: 09/25/17 04:30 09/25/17 04:30 PT 12.2 Seconds (9.8-13.1) 09/23/17 05:30 INR 1.1 (0.9-1.2) 09/23/17 05:30 APTT 59.0 Seconds (25.6-37.1) H D 09/25/17 11:41 - Head Exam Head Exam: ATRAUMATIC - Eye Exam Eye Exam: Normal appearance - ENT Exam ENT Exam: Mucous Membranes Dry - Respiratory Exam Respiratory Exam: NORMAL BREATHING PATTERN - Cardiovascular Exam Cardiovascular Exam: +S1, +S2 - GI/Abdominal Exam GI & Abdominal Exam: Normal Bowel Sounds Assessment and Plan (1) CVA (cerebral vascular accident) Assessment & Plan: with arterial clotting rule out hypercoagulabe state vs thromboembolic/atherosclerotic disease inherited thrombophilia w/u sent agree with antiplatelet and therapeutic anticoagulation neuro, vascular, cardio f/u Status: Acute (2) Anemia Assessment & Plan: iron deficiency s/p PRBC transfusion no iron for now as increasing H/H will increase viscosity which may worsen CVA Status: Acute (3) Coagulopathy Assessment & Plan: anticoagulation Status: Acute (4) Leukocytosis Assessment & Plan: on steroids Status: Acute
--- NOTE | 2017-09-25 15:34 | CP.PCM.PN ---
Subjective - Date & Time of Evaluation Date of Evaluation: 09/25/17 Time of Evaluation: 10:40 - Subjective Subjective: F/U Acute CVA Pt alert, awake, Ox3, less pain in the LUE. Objective - Vital Signs/Intake and Output Vital Signs (last 24 hours): Temp Pulse Resp BP Pulse Ox 99 F 87 9 L 123/72 98 09/25/17 12:00 09/25/17 15:15 09/25/17 15:15 09/25/17 15:15 09/25/17 15:15 Intake and Output: 09/25/17 09/25/17 06:59 18:59 Intake Total 1745 Output Total 850 Balance 895 - Medications Medications: Current Medications Acetaminophen (Tylenol 325mg Tab) 650 mg PO Q8 PRN PRN Reason: Pain, Mild (1-3) Atorvastatin Calcium (Lipitor) 20 mg PO DAILY [facility] Last Admin: 09/24/17 12:11 Dose: 20 mg Clopidogrel Bisulfate (Plavix) 75 mg PO DAILY [facility] Last Admin: 09/24/17 12:12 Dose: 75 mg Dexamethasone (Decadron Inj) 6 mg IVP Q6H [facility] Last Admin: 09/25/17 12:39 Dose: 6 mg Docusate Sodium (Colace) 100 mg PO BID [facility] Last Admin: 09/25/17 09:34 Dose: Not Given Famotidine (Famotidine) 20 mg IVP Q12 [facility] Last Admin: 09/25/17 09:35 Dose: 20 mg Hydromorphone HCl (Dilaudid) 0.5 mg IVP Q4 PRN PRN Reason: Pain, severe (8-10) Stop: 09/26/17 10:57 Last Admin: 09/25/17 10:12 Dose: 0.5 mg Heparin Sodium/Dextrose (Heparin 25,000 Units/250ml In D5w) 25,000 units in 250 mls @ 10.5 mls/hr IV .[id number] [facility] PRN Reason: Protocol Lactulose (Enulose) 20 gm PO DAILY PRN PRN Reason: Constipation Meclizine HCl (Antivert) 25 mg PO TID [facility] Last Admin: 09/25/17 12:38 Dose: Not Given Metoprolol Tartrate (Lopressor) 12.5 mg PO Q12 [facility] Last Admin: 09/25/17 09:36 Dose: 12.5 mg Sucralfate (Carafate Oral Susp) 1 gm PO QID [facility] Last Admin: 09/25/17 12:38 Dose: Not Given Topiramate (Topamax) 50 mg PO BID [facility] Last Admin: 09/25/17 09:36 Dose: Not Given - Labs Labs: 09/25/17 04:30 09/25/17 04:30 PT 12.2 Seconds (9.8-13.1) 09/23/17 05:30 INR 1.1 (0.9-1.2) 09/23/17 05:30 APTT 59.0 Seconds (25.6-37.1) H D 09/25/17 11:41 - Constitutional Appears: No Acute Distress - Head Exam Head Exam: NORMAL INSPECTION - Eye Exam Eye Exam: PERRL - ENT Exam ENT Exam: Normal Exam - Neck Exam Neck Exam: Normal Inspection - Respiratory Exam Respiratory Exam: Clear to Ausculation Bilateral - Cardiovascular Exam Cardiovascular Exam: REGULAR RHYTHM - GI/Abdominal Exam GI & Abdominal Exam: Soft, Normal Bowel Sounds - Extremities Exam Additional comments: R foot colder compare to L foot, less pain in LUE, geatlly increased ROM LUE, full ROM lower extremities and RUE. - Neurological Exam Additional comments: O x2, dizziness, blurred vision L eye, increased ROM LUE, moves well lower extremities and RUE. - Skin Skin Exam: Warm Assessment and Plan (1) Acute CVA (cerebrovascular accident) Status: Acute (2) Acute cerebrovascular accident (CVA) of cerebellum Status: Acute (3) New infarction of cerebellum Status: Acute (4) Migraine Status: Acute (5) Severe vertigo Status: Acute (6) Pain of left upper extremity Status: Acute (7) Left subclavian vein thrombosis Status: Acute (8) Anemia Status: Chronic (9) Vertebral artery occlusion Status: Acute
[2017-09-25] MEDS: Heparin 25,000units in D5W 25,000 UNITS/250 ML BAG IV SCH (18:21)
[2017-09-26] MEDS ORDERED: Magnesium Hydroxide Susp 30 ml UD PO ONE (01:21)
[2017-09-26] MEDS: Dexamethasone 4 mg/1 ml IVP SCH ×4 (01:29→20:02)
[2017-09-26] MEDS ORDERED: Chlorhexidine Gluconate 1 APPL/PKT TP ONE ×2 (01:41→20:40)
[2017-09-26 05:12] LABS: B2 GLYCOPROTEIN I AB(IGA) <9 SAU (<=20); B2 GLYCOPROTEIN I AB(IGG) <9 SGU (<=20); B2 GLYCOPROTEIN I AB(IGM) <9 SMU (<=20)
[2017-09-26 05:14] LABS: HEMOGLOBIN 9.5 g/dL (12.0-16.0); MEAN CELL VOLUME 70.5 fl (81.0-99.0); MEAN CORPUSCULAR HEMOGLOBIN 22.4 pg (27.0-31.0); MEAN CORPUSCULAR HGB CONC 31.8 g/dL (33.0-37.0); RBC 4.24 Mil/uL (3.80-5.20); RED CELL DISTRIBUTION WIDTH 20.7 % (11.5-14.5); WHITE BLOOD COUNT 27.7 K/uL (4.8-10.8)
[2017-09-26 05:32] LABS: CARDIOLIPIN AB (IGA) <11 APL (<=11); CARDIOLIPIN AB (IGG) <14 GPL (<=14); CARDIOLIPIN AB (IGM) <12 MPL (<=12)
[2017-09-26 05:46] LABS: BLOOD UREA NITROGEN 12 mg/dl (7-17)
[2017-09-26 05:47] LABS: CALCIUM 9.1 mg/dL (8.4-10.2); GFR AFRICAN-AMERICAN > 60; GFR NON-AFRICAN AMERICAN > 60
--- NOTE | 2017-09-26 08:27 | PN ---
CRITICAL CARE PROGRESS NOTE DATE: 09/25/2017 LOCATION: The patient is in ICU, bed 431. TIME SPENT: 35 minutes. SUBJECTIVE: The patient is seen and evaluated at the bedside. Case discussed in detail in multidisciplinary ICU rounds. Past medical, surgical, social and family history reviewed. A 47-year-old female with recurrent migraine, found face down in the bathtub at home, admitted with dizziness and left arm weakness and pain. CT and MRI of the brain showed left parietal infarct as well as cerebellar with left vertebral artery occlusion and left subclavian artery thrombosis. Currently on IV heparin drip. Followed by Neurology and Cardiology consult. The patient is scheduled for transesophageal echocardiogram today. Over night, afebrile, normotensive and reduced intensity of headache. No palpitation or chest pain. Denies abdominal pain. Increased movement of left upper arm. PHYSICAL EXAMINATION: CURRENT VITAL SIGNS: Temperature 99, heart rate 90 regular, respiratory rate 12, blood pressure 105/79. HEAD, EYES, EARS, NOSE AND THROAT: Pupils are reactive. Conjunctivae pink. Sclerae are white. NECK: Supple. No nystagmus. Trachea is central. CHEST: Bilateral breath sounds clear to auscultation. HEART: Rhythm regular. S1 and S2 normal intensity. ABDOMEN: Bowel sounds present. Soft. Liver and spleen not palpable. Bladder not distended. EXTREMITIES: Improved strength on the left upper extremity. SKIN: Without rash. NEUROLOGIC: Reduced strength on the left upper extremity. No motor deficit on the right upper, lower and left lower extremity. No sensory impairment. Patellar reflexes 2+ bilaterally. Plantar flexor. CURRENT MEDICATIONS: Tylenol 650 q.8 p.r.n., Lipitor 20 mg daily, Plavix 75 mg daily, Decadron 6 mg IV push q.6 hours, Colace 100 mg b.i.d., Pepcid 20 mg IV q.12 hours, heparin drip titrating to maintain PTT 1.52 , Dilaudid 0.5 mg IV q.4 p.r.n. for [id number] pain, lactulose 20 g p.o. daily, Antivert 25 mg three times a day, Lopressor 12.5 mg q.12 hours, sucralfate 1 g p.o. q.i.d. and Topamax 50 mg p.o. twice daily LABORATORY DATA: WBC 33.1, hemoglobin 9.1, hematocrit 29.4 and platelet count 438. Neutrophils 90.2, lymphocytes 6 and monocytes 3.7. PTT 59. SMA-7; sodium 146, potassium 3.7, chloride 108, CO2 of 21, blood urea nitrogen 9, creatinine 0.7, random glucose 134, calcium 9.2, total bilirubin 0.2, AST 23, ALT 27, alkaline phosphatase 65, total protein 6.9 and albumin 3.6. Urine toxic screen positive for opiates. Microbiology; none reported. CT head; left cerebellar hypodensity seen on image 10. No evidence of acute intracranial hemorrhage. Spine MRI; no disc herniation. Central canal or neural foramina sclerosis is seen. The central canal appears widely patent. Sacralized L5 vertebral body with L1 vertebral body. Thoracic spine MRI; no evidence of spinal canal stenosis, although significant abnormality. Cervical spine MRI; small spinal canal stenosis at C4-C5 and C5-C6 secondary to degenerative changes. Brain MRI; stable acute infarct in the left parietal lobe, new moderate to large acute infarct in the left medial cerebellar and left medulla. IMPRESSION AND PLAN: 1. Neuro: Admitted with an acute infarct involving left parietal lobe, left medulla, left cerebellum. Noted occlusion of left vertebral artery. Left subclavian artery thrombosis, etiology unclear. Hypercoagulable workup in progress. Currently on IV heparin as recommended by Neurology and Cardiology. Awaiting for transesophageal echocardiogram to look for any source in the heart. Current transesophageal echocardiogram is normal with no vegetation and normal left ventricular function. 2. Hematology: Leukocytosis probably reactive on steroid. Anemia probably chronic status post transfusion of 2 units of packed red blood cells. 3. Endocrine: Maintain blood sugar less than 180. Currently, steroid induced hyperglycemia. 4. Renal: No acute renal issues noted. 5. GI: Once the transesophageal echocardiogram is completed, we will resume heart healthy diet as tolerated. Best practices; keep the head of bed 30 degrees. Deep venous thrombosis prophylaxis and gastrointestinal prophylaxis, the patient is on steroid. Analgesics as needed to relieve pain. George Lorenzo MD
[2017-09-26] MEDS: Sucralfate 1 gm/10 ml Oral Susp UD PO SCH ×4 (08:28→22:21)
--- NOTE | 2017-09-26 09:22 | CP.PCM.PN ---
Subjective - Date & Time of Evaluation Date of Evaluation: 09/26/17 Time of Evaluation: 09:19 - Subjective Subjective: Ms. Shahid was seen and examined at the bedside in ICU. She is more alert, coherent today in comparison from previous examination. She is able to answer questions appropriately and follow commands. She denies any headache, but claims of dizziness with every movement of her head. She further states of blurred vision and diplopia of the left eye which showed " lazy eyes". The temp. of her extremities are equal today with + pedal pulses. She is able to do finger to nose test with her right upper extremity with her left eye remains weak. MRI of the cervical showed spinal canal stenosis at C4-C5 secondary to degenerative changes.There was no untoward events overnight. Objective - Vital Signs/Intake and Output Vital Signs (last 24 hours): Temp Pulse Resp BP Pulse Ox 98.4 F 89 20 165/88 H 98 09/26/17 08:00 09/26/17 08:29 09/26/17 08:00 09/26/17 08:29 09/26/17 08:00 Intake and Output: 09/26/17 09/26/17 06:59 18:59 Intake Total 355 350 Output Total 900 Balance -545 350 - Medications Medications: Current Medications Acetaminophen (Tylenol 325mg Tab) 650 mg PO Q8 PRN PRN Reason: Pain, Mild (1-3) Atorvastatin Calcium (Lipitor) 20 mg PO DAILY [facility] Last Admin: 09/26/17 08:29 Dose: 20 mg Clopidogrel Bisulfate (Plavix) 75 mg PO DAILY [facility] Last Admin: 09/26/17 08:29 Dose: 75 mg Dexamethasone (Decadron Inj) 6 mg IVP Q6H [facility] Last Admin: 09/26/17 07:55 Dose: 6 mg Docusate Sodium (Colace) 100 mg PO BID [facility] Last Admin: 09/26/17 08:28 Dose: 100 mg Famotidine (Famotidine) 20 mg IVP Q12 [facility] Last Admin: 09/26/17 08:28 Dose: 20 mg Hydromorphone HCl (Dilaudid) 0.5 mg IVP Q4 PRN PRN Reason: Pain, severe (8-10) Stop: 09/26/17 10:57 Last Admin: 09/25/17 20:30 Dose: 0.5 mg Heparin Sodium/Dextrose (Heparin 25,000 Units/250ml In D5w) 25,000 units in 250 mls @ 10.5 mls/hr IV .[id number] [facility] PRN Reason: Protocol Last Admin: 09/25/17 18:21 Dose: 10.5 mls/hr Lactulose (Enulose) 20 gm PO DAILY PRN PRN Reason: Constipation Last Admin: 09/25/17 20:28 Dose: 20 gm Meclizine HCl (Antivert) 25 mg PO TID [facility] Last Admin: 09/26/17 08:28 Dose: 25 mg Metoprolol Tartrate (Lopressor) 12.5 mg PO Q12 [facility] Last Admin: 09/26/17 08:29 Dose: 12.5 mg Sucralfate (Carafate Oral Susp) 1 gm PO QID [facility] Last Admin: 09/26/17 08:28 Dose: 1 gm Topiramate (Topamax) 50 mg PO BID [facility] Last Admin: 09/26/17 08:30 Dose: 50 mg - Labs Labs: 09/26/17 04:45 09/26/17 04:45 PT 12.2 Seconds (9.8-13.1) 09/23/17 05:30 INR 1.1 (0.9-1.2) 09/23/17 05:30 APTT 60.4 Seconds (25.6-37.1) H 09/26/17 08:00 - Constitutional Appears: No Acute Distress - Head Exam Head Exam: NORMAL INSPECTION - Neurological Exam Neurological Exam: Alert, Awake, Oriented x3 Neuro motor strength exam: Left Upper Extremity: 2/1, Right Upper Extremity: 4, Left Lower Extremity: 3, Right Lower Extremity: 4 Additional comments: She is able to answer questions appropriately and follow commands. Assessment and Plan (1) Acute CVA (cerebrovascular accident) Assessment & Plan: Case discussed with Dr. Gatica, continue all current medical, speech therapies. Recommend PT, OT eval and treat. Recommend to do repeat CT scan of the head without contrast if there is a decline in mental state. Status: Acute
[2017-09-26] MEDS: HYDROmorphone 0.5 mg/0.5 ml ISec IVP PRN ×2 (10:31→19:59)
--- NOTE | 2017-09-26 13:59 | CP.PCM.PN ---
Subjective - Date & Time of Evaluation Date of Evaluation: 09/26/17 Time of Evaluation: 10:40 - Subjective Subjective: F/U Acute CVA Pt able to walk with PT, with the walker and help. LUE pain improved. Objective - Vital Signs/Intake and Output Vital Signs (last 24 hours): Temp Pulse Resp BP Pulse Ox 98.3 F 80 20 161/88 H 99 09/26/17 12:00 09/26/17 12:00 09/26/17 12:00 09/26/17 12:00 09/26/17 12:00 Intake and Output: 09/26/17 09/26/17 06:59 18:59 Intake Total 355 542 Output Total 900 Balance -545 542 - Medications Medications: Current Medications Acetaminophen (Tylenol 325mg Tab) 650 mg PO Q8 PRN PRN Reason: Pain, Mild (1-3) Atorvastatin Calcium (Lipitor) 20 mg PO DAILY [facility] Last Admin: 09/26/17 08:29 Dose: 20 mg Clopidogrel Bisulfate (Plavix) 75 mg PO DAILY [facility] Last Admin: 09/26/17 08:29 Dose: 75 mg Dexamethasone (Decadron Inj) 6 mg IVP Q6H [facility] Last Admin: 09/26/17 07:55 Dose: 6 mg Docusate Sodium (Colace) 100 mg PO BID [facility] Last Admin: 09/26/17 08:28 Dose: 100 mg Famotidine (Famotidine) 20 mg IVP Q12 [facility] Last Admin: 09/26/17 08:28 Dose: 20 mg Lactulose (Enulose) 20 gm PO DAILY PRN PRN Reason: Constipation Last Admin: 09/25/17 20:28 Dose: 20 gm Meclizine HCl (Antivert) 25 mg PO TID [facility] Last Admin: 09/26/17 08:28 Dose: 25 mg Metoprolol Tartrate (Lopressor) 12.5 mg PO Q12 [facility] Last Admin: 09/26/17 08:29 Dose: 12.5 mg Sucralfate (Carafate Oral Susp) 1 gm PO QID [facility] Last Admin: 09/26/17 08:28 Dose: 1 gm Topiramate (Topamax) 50 mg PO BID [facility] Last Admin: 09/26/17 08:30 Dose: 50 mg - Labs Labs: 09/26/17 04:45 09/26/17 04:45 PT 12.2 Seconds (9.8-13.1) 09/23/17 05:30 INR 1.1 (0.9-1.2) 09/23/17 05:30 APTT 60.4 Seconds (25.6-37.1) H 09/26/17 08:00 - Constitutional Appears: No Acute Distress - Head Exam Head Exam: NORMAL INSPECTION - Eye Exam Eye Exam: PERRL - ENT Exam ENT Exam: Normal Exam - Neck Exam Neck Exam: Normal Inspection - Respiratory Exam Respiratory Exam: Clear to Ausculation Bilateral - Cardiovascular Exam Cardiovascular Exam: REGULAR RHYTHM - GI/Abdominal Exam GI & Abdominal Exam: Soft, Normal Bowel Sounds - Extremities Exam Extremities Exam: Tenderness (decreased LUE, increased ROM.) - Back Exam Back Exam: NORMAL INSPECTION - Neurological Exam Neurological Exam: Alert, Oriented x3 Additional comments: Moves all extremities, follows commands. 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 Lopressor, Decadron and rest of Tx.
--- NOTE | 2017-09-26 16:42 | CP.CCUPN ---
CCU Subjective - Physician Review Subjective (Free Text): Awake and alert, family at bedside; remains on Heparin drip. Tolerated getting out of bed with PT assistance. Other VS and I/Os reviewed. Afebrile without fever spikes, SBPs down to 150- 150s from 190s on admission. ROS: No other pertinent negs or positives on 10+ system review. PMSFH: All other Nursing and physician documentation reviewed to date; no new pertinent info noted relevant to current medical problems. EXAM- HEENT: no icterus, no gaze preference, pupils equal and reactive, no icterus NECK: No JVD, supple, carotids equal upstroke bilat/no bruits CHEST: decreased BS bases, otherwise clear bilat, no wheezes audible HEART: regular distant, S1S2, no rubs. ABD: soft, no distention, no tympany or tenderness, BS present. EXT: No peripheral/ digital cyanosis, no calf tenderness or palpable cords, distal pulses intact and symmetrical. NEURO: left shoulder and LUE weakness noted, no gross deficits LLE nor R side. SKIN: no rashes, warm and dry. CXR: admission film- clear bilaterally (my interp). LABS: WBC= 27.7 HGB= 14.5 PLTs= 454K Na= 148 K= 3.5 HCO3=20 CL= 108 BUN/Cr= 12/0.8 BS= 131 MAJOR PROBLEMS: 1. CVA with multiple acute infarcts over L parietal area, L Medial Cerebellar area and L Medulla. 2. HTN Post CVA 3. Distal L Vertebral Artery Occlusion 4. Thrombus L Subclavian Artery 5. Borderline Hypokalemia PLAN: 1. On Heparin drip, may need rat exterminator AC therapy. 2. GILBERT done yesterday negative for thrombus , ASD. 3. PT /OT 4. Muniz discontinued. 5. No edema or spinal cord pathology on brain / spine imaging, consider stopping steroids and follow WBC. Hold on abx therapy. 6. Cautious BP control, would hold Antivert for now (concern over BAND SPLICER depression effects). CCU Objective - Vital Signs / Intake & Output Vital Signs (Last 4 hours): Vital Signs Pulse BP 09/26/17 14:00 81 153/73 H Intake and Output (Last 8hrs): Intake & Output 09/26/17 09/26/17 09/26/17 06:59 14:59 22:59 Intake Total 84 713 Output Total 900 Balance -816 713 Weight 143 lb Intake: IV 84 63 Oral 650 Output: Urine 900 Urethral (Muniz) 900 Other: # Bowel Movements 1 - Medications Active Medications: Active Medications Generic Name Dose Route Start Last Admin Trade Name Freq PRN Reason Stop Dose Admin Acetaminophen 650 mg 09/24/17 11:03 Tylenol 325mg Tab PO Q8 PRN Pain, Mild (1-3) Atorvastatin Calcium 20 mg 09/21/17 14:45 09/26/17 08:29 Lipitor PO 20 mg DAILY NAIMA Administration Clopidogrel Bisulfate 75 mg 09/22/17 15:15 09/26/17 08:29 Plavix PO 75 mg DAILY NAIMA Administration Dexamethasone 6 mg 09/23/17 19:15 09/26/17 14:45 Decadron Inj IVP 6 mg Q6H NAIMA Administration Docusate Sodium 100 mg 09/24/17 17:00 09/26/17 08:28 Colace PO 100 mg BID NAIMA Administration Famotidine 20 mg 09/22/17 09:00 09/26/17 08:28 Famotidine IVP 20 mg Q12 NAIMA Administration Lactulose 20 gm 09/24/17 12:34 09/25/17 20:28 Enulose PO 20 gm DAILY PRN Administration Constipation Meclizine HCl 25 mg 09/21/17 17:00 09/26/17 14:45 Antivert PO 25 mg TID NAIMA Administration Metoprolol Tartrate 12.5 mg 09/25/17 09:00 09/26/17 08:29 Lopressor PO 12.5 mg Q12 NAIMA Administration Sucralfate 1 gm 09/22/17 13:00 09/26/17 14:45 Carafate Oral Susp PO 1 gm QID NAIMA Administration Topiramate 50 mg 09/21/17 17:00 09/26/17 08:30 Topamax PO 50 mg BID NAIMA Administration - Patient Studies Lab Studies: Lab Studies 09/26/17 09/26/17 09/26/17 Range/Units 08:00 04:45 04:45 WBC 27.7 H (4.8-10.8) K/uL RBC 4.24 (3.80-5.20) Mil/uL Hgb 9.5 L (12.0-16.0) g/dL Hct 29.9 L (34.0-47.0) % MCV 70.5 L (81.0-99.0) fl MCH 22.4 L (27.0-31.0) pg MCHC 31.8 L (33.0-37.0) g/dL RDW 20.7 H (11.5-14.5) % Plt Count 454 H (130-400) K/uL APTT 60.4 H (25.6-37.1) Seconds Protein C Activity (70-180) % Protein S Activity (60-140) % Protein S Antigen (70-140) % Antithrombin III Activ (80-120) % activity Factor V Activity (65-150) % Sodium 148 (132-148) mmol/l Potassium 3.5 L (3.6-5.0) MMOL/L Chloride 108 H (98-107) mmol/L Carbon Dioxide 20 L (22-30) mmol/L Anion Gap 24 H (10-20) BUN 12 (7-17) mg/dl Creatinine 0.8 (0.7-1.2) mg/dl Est GFR ( Amer) > 60 Est GFR (Non-Af Amer) > 60 Random Glucose 131 H (65-105) mg/dL Calcium 9.1 (8.4-10.2) mg/dL RBC Folate (>280) ng/mL RBC Fszb-0-Mhthukshmpbu Ab (<=20) KALINA Beta-2 GPI IgG Ab (<=20) [facility]U Beta-2 GPI IgM Ab (<=20) [facility] Anti-Cardiolipin IgG Ab (<=14) GPL Anti-Cardiolipin IgA Ab (<=11) APL Anti-Cardiolipin IgM Ab (<=12) MPL MTHFR DNA Mutation Anal MTHFR Interpretation MTHFR Reviewed By 09/26/17 09/25/17 09/23/17 Range/Units 00:15 18:30 06:00 WBC (4.8-10.8) K/uL RBC (3.80-5.20) Mil/uL Hgb (12.0-16.0) g/dL Hct (34.0-47.0) % MCV (81.0-99.0) fl MCH (27.0-31.0) pg MCHC (33.0-37.0) g/dL RDW (11.5-14.5) % Plt Count (130-400) K/uL APTT 58.0 H 57.6 H (25.6-37.1) Seconds Protein C Activity (70-180) % Protein S Activity (60-140) % Protein S Antigen (70-140) % Antithrombin III Activ (80-120) % activity Factor V Activity (65-150) % Sodium (132-148) mmol/l Potassium (3.6-5.0) MMOL/L Chloride (98-107) mmol/L Carbon Dioxide (22-30) mmol/L Anion Gap (10-20) BUN (7-17) mg/dl Creatinine (0.7-1.2) mg/dl Est GFR ( Amer) Est GFR (Non-Af Amer) Random Glucose (65-105) mg/dL Calcium (8.4-10.2) mg/dL RBC Folate (>280) ng/mL RBC Helx-6-Kwdkcrhrxqnx Ab <9 (<=20) KALINA Beta-2 GPI IgG Ab <9 (<=20) [facility]U Beta-2 GPI IgM Ab <9 (<=20) [facility] Anti-Cardiolipin IgG Ab <14 (<=14) GPL Anti-Cardiolipin IgA Ab <11 (<=11) APL Anti-Cardiolipin IgM Ab <12 (<=12) MPL MTHFR DNA Mutation Anal MTHFR Interpretation MTHFR Reviewed By 09/23/17 09/23/17 09/23/17 Range/Units 06:00 06:00 06:00 WBC (4.8-10.8) K/uL RBC (3.80-5.20) Mil/uL Hgb (12.0-16.0) g/dL Hct (34.0-47.0) % MCV (81.0-99.0) fl MCH (27.0-31.0) pg MCHC (33.0-37.0) g/dL RDW (11.5-14.5) % Plt Count (130-400) K/uL APTT (25.6-37.1) Seconds Protein C Activity 91 (70-180) % Protein S Activity 57 L (60-140) % Protein S Antigen 111 (70-140) % Antithrombin III Activ (80-120) % activity Factor V Activity (65-150) % Sodium (132-148) mmol/l Potassium (3.6-5.0) MMOL/L Chloride (98-107) mmol/L Carbon Dioxide (22-30) mmol/L Anion Gap (10-20) BUN (7-17) mg/dl Creatinine (0.7-1.2) mg/dl Est GFR ( Amer) Est GFR (Non-Af Amer) Random Glucose (65-105) mg/dL Calcium (8.4-10.2) mg/dL RBC Folate (>280) ng/mL RBC Icbd-1-Vbfptuizfwth Ab (<=20) KALINA Beta-2 GPI IgG Ab (<=20) [facility] Beta-2 GPI IgM Ab (<=20) [facility] Anti-Cardiolipin IgG Ab (<=14) GPL Anti-Cardiolipin IgA Ab (<=11) APL Anti-Cardiolipin IgM Ab (<=12) MPL MTHFR DNA Mutation Anal MTHFR Interpretation MTHFR Reviewed By 09/23/17 09/23/17 09/22/17 Range/Units 06:00 06:00 04:42 WBC (4.8-10.8) K/uL RBC (3.80-5.20) Mil/uL Hgb (12.0-16.0) g/dL Hct (34.0-47.0) % MCV (81.0-99.0) fl MCH (27.0-31.0) pg MCHC (33.0-37.0) g/dL RDW (11.5-14.5) % Plt Count (130-400) K/uL APTT (25.6-37.1) Seconds Protein C Activity (70-180) % Protein S Activity (60-140) % Protein S Antigen (70-140) % Antithrombin III Activ 121 H (80-120) % activity Factor V Activity 117 (65-150) % Sodium (132-148) mmol/l Potassium (3.6-5.0) MMOL/L Chloride (98-107) mmol/L Carbon Dioxide (22-30) mmol/L Anion Gap (10-20) BUN (7-17) mg/dl Creatinine (0.7-1.2) mg/dl Est GFR ( Amer) Est GFR (Non-Af Amer) Random Glucose (65-105) mg/dL Calcium (8.4-10.2) mg/dL RBC Folate 1143 (>280) ng/mL RBC Ldrj-1-Puhdqibzhxik Ab (<=20) KALINA Beta-2 GPI IgG Ab (<=20) [facility]U Beta-2 GPI IgM Ab (<=20) [facility] Anti-Cardiolipin IgG Ab (<=14) GPL Anti-Cardiolipin IgA Ab (<=11) APL Anti-Cardiolipin IgM Ab (<=12) MPL MTHFR DNA Mutation Anal see note H MTHFR Interpretation see note MTHFR Reviewed By see note Laboratory Results - last 24 hr 09/22/17 09/23/17 09/23/17 04:42 06:00 06:00 WBC RBC Hgb Hct MCV MCH MCHC RDW Plt Count APTT Protein C Activity Protein S Activity Protein S Antigen Antithrombin III Activ 121 H Factor V Activity 117 Sodium Potassium Chloride Carbon Dioxide Anion Gap BUN Creatinine Est GFR ( Amer) Est GFR (Non-Af Amer) Random Glucose Calcium RBC Folate 1143 Irom-1-Gszkxyqxpsyz Ab Beta-2 GPI IgG Ab Beta-2 GPI IgM Ab Anti-Cardiolipin IgG Ab Anti-Cardiolipin IgA Ab Anti-Cardiolipin IgM Ab MTHFR DNA Mutation Anal see note H MTHFR Interpretation see note MTHFR Reviewed By see note 09/23/17 09/23/17 09/23/17 06:00 06:00 06:00 WBC RBC Hgb Hct MCV MCH MCHC RDW Plt Count APTT Protein C Activity 91 Protein S Activity 57 L Protein S Antigen 111 Antithrombin III Activ Factor V Activity Sodium Potassium Chloride Carbon Dioxide Anion Gap BUN Creatinine Est GFR ( Amer) Est GFR (Non-Af Amer) Random Glucose Calcium RBC Folate Hpas-6-Mxbsouegwohx Ab Beta-2 GPI IgG Ab Beta-2 GPI IgM Ab Anti-Cardiolipin IgG Ab Anti-Cardiolipin IgA Ab Anti-Cardiolipin IgM Ab MTHFR DNA Mutation Anal MTHFR Interpretation MTHFR Reviewed By 09/23/17 09/25/17 09/26/17 06:00 18:30 00:15 WBC RBC Hgb Hct MCV MCH MCHC RDW Plt Count APTT 57.6 H 58.0 H Protein C Activity Protein S Activity Protein S Antigen Antithrombin III Activ Factor V Activity Sodium Potassium Chloride Carbon Dioxide Anion Gap BUN Creatinine Est GFR ( Amer) Est GFR (Non-Af Amer) Random Glucose Calcium RBC Folate Axhh-8-Zugcdbdwsgpu Ab <9 Beta-2 GPI IgG Ab <9 Beta-2 GPI IgM Ab <9 Anti-Cardiolipin IgG Ab <14 Anti-Cardiolipin IgA Ab <11 Anti-Cardiolipin IgM Ab <12 MTHFR DNA Mutation Anal MTHFR Interpretation MTHFR Reviewed By 09/26/17 09/26/17 09/26/17 04:45 04:45 08:00 WBC 27.7 H RBC 4.24 Hgb 9.5 L Hct 29.9 L MCV 70.5 L MCH 22.4 L MCHC 31.8 L RDW 20.7 H Plt Count 454 H APTT 60.4 H Protein C Activity Protein S Activity Protein S Antigen Antithrombin III Activ Factor V Activity Sodium 148 Potassium 3.5 L Chloride 108 H Carbon Dioxide 20 L Anion Gap 24 H BUN 12 Creatinine 0.8 Est GFR ( Amer) > 60 Est GFR (Non-Af Amer) > 60 Random Glucose 131 H Calcium 9.1 RBC Folate Kahq-3-Rdspsdlaeghj Ab Beta-2 GPI IgG Ab Beta-2 GPI IgM Ab Anti-Cardiolipin IgG Ab Anti-Cardiolipin IgA Ab Anti-Cardiolipin IgM Ab MTHFR DNA Mutation Anal MTHFR Interpretation MTHFR Reviewed By Fingerstick Blood Sugar Results: 111 Review of Systems - Review of Systems All systems: reviewed and no additional remarkable complaints except (as above) Critical Care Progress Note - Nutrition Nutrition: Nutrition Category Date Time Status Regular Diet [DIET] Diets 09/21/17 Dinner Active
[2017-09-26] MEDS ORDERED: Heparin25000 units/250ml 1/2NS 25,000 UNITS/250 ML BAG IV ONE (18:49)
[2017-09-26] MEDS ORDERED: Heparin 25,000units in D5W 25,000 UNITS/250 ML BAG IV SCH (19:00)
[2017-09-26] MEDS: Heparin 25,000units in D5W 25,000 UNITS/250 ML BAG IV SCH (19:25)
[2017-09-26 22:59] LABS: PHOSPHATIDYLSERINE AB IGA <20 U/mL (<20); PHOSPHATIDYLSERINE AB IGG <10 U/mL (<10); PHOSPHATIDYLSERINE AB IGM <25 U/mL (<25)
[2017-09-27] MEDS: Dexamethasone 4 mg/1 ml IVP SCH ×4 (00:22→20:46)
[2017-09-27] MEDS: HYDROmorphone 0.5 mg/0.5 ml ISec IVP PRN ×2 (00:23→07:54)
[2017-09-27 05:25] LABS: HEMOGLOBIN 9.7 g/dL (12.0-16.0); MEAN CORPUSCULAR HEMOGLOBIN 22.2 pg (27.0-31.0); MEAN CORPUSCULAR HGB CONC 31.7 g/dL (33.0-37.0); RBC 4.37 Mil/uL (3.80-5.20); RED CELL DISTRIBUTION WIDTH 21.1 % (11.5-14.5); WHITE BLOOD COUNT 24.1 K/uL (4.8-10.8)
[2017-09-27 06:17] LABS: BLOOD UREA NITROGEN 15 mg/dl (7-17); CALCIUM 9.3 mg/dL (8.4-10.2); GFR AFRICAN-AMERICAN > 60; GFR NON-AFRICAN AMERICAN > 60
[2017-09-27] MEDS: Sucralfate 1 gm/10 ml Oral Susp UD PO SCH ×4 (08:09→22:07)
--- NOTE | 2017-09-27 09:24 | CP.PCM.PN ---
Subjective - Date & Time of Evaluation Date of Evaluation: 09/27/17 Time of Evaluation: 09:24 - Subjective Subjective: Ms. Shahid was seen and examined at the bedside in ICU. She is more alert, coherent today in comparison from previous examination. She is able to answer questions appropriately and follow commands. She denies any headache, but claims of dizziness with every movement of her head. She further states of intermitent blurred vision and diplopia of the left eye which showed " lazy eyes ". The temp. of her extremities are equal today with + pedal pulses. She is able to do finger to nose test with her right upper extremity with her left upper extremity remains weak. She is able to lift her left upper extremity approximately in the same level of her shoulder while in a semi-velez's position. She is able to feed herself with minimal assistance from her . Her dueñas catheter was removed yesterday per patient request, but had to be straight cath. 2 x afterwards. She tolerated physical and occupational therapies yesterday. Objective - Vital Signs/Intake and Output Vital Signs (last 24 hours): Temp Pulse Resp BP Pulse Ox 98.2 F 73 20 173/97 H 98 09/27/17 08:00 09/27/17 08:06 09/27/17 08:00 09/27/17 08:06 09/27/17 08:00 Intake and Output: 09/27/17 09/27/17 06:59 18:59 Intake Total 166 21 Output Total 1400 Balance -1234 21 - Medications Medications: Current Medications Acetaminophen (Tylenol 325mg Tab) 650 mg PO Q8 PRN PRN Reason: Pain, Mild (1-3) Atorvastatin Calcium (Lipitor) 20 mg PO DAILY [facility] Last Admin: 09/27/17 08:09 Dose: 20 mg Clopidogrel Bisulfate (Plavix) 75 mg PO DAILY [facility] Last Admin: 09/27/17 08:10 Dose: 75 mg Dexamethasone (Decadron Inj) 6 mg IVP Q6H [facility] Last Admin: 09/27/17 07:55 Dose: 6 mg Docusate Sodium (Colace) 100 mg PO BID [facility] Last Admin: 09/27/17 08:09 Dose: 100 mg Famotidine (Famotidine) 20 mg IVP Q12 [facility] Last Admin: 09/27/17 08:10 Dose: 20 mg Hydromorphone HCl (Dilaudid) 0.5 mg IVP Q4 PRN PRN Reason: Pain, severe (8-10) Last Admin: 09/27/17 07:54 Dose: 0.5 mg Heparin Sodium/Dextrose (Heparin 25,000 Units/250ml In D5w) 25,000 units in 250 mls @ 10.5 mls/hr IV .[id number] [facility] PRN Reason: Protocol Lactulose (Enulose) 20 gm PO DAILY PRN PRN Reason: Constipation Last Admin: 09/25/17 20:28 Dose: 20 gm Meclizine HCl (Antivert) 25 mg PO TID [facility] Last Admin: 09/27/17 08:09 Dose: 25 mg Metoprolol Tartrate (Lopressor) 12.5 mg PO Q12 [facility] Last Admin: 09/27/17 08:06 Dose: 12.5 mg Sucralfate (Carafate Oral Susp) 1 gm PO QID [facility] Last Admin: 09/27/17 08:09 Dose: 1 gm Topiramate (Topamax) 50 mg PO BID [facility] Last Admin: 09/27/17 08:10 Dose: 50 mg - Labs Labs: 09/27/17 04:40 09/27/17 04:40 PT 12.2 Seconds (9.8-13.1) 09/23/17 05:30 INR 1.1 (0.9-1.2) 09/23/17 05:30 APTT 64.3 Seconds (25.6-37.1) H 09/27/17 04:40 - Constitutional Appears: No Acute Distress - Head Exam Head Exam: NORMAL INSPECTION - Neurological Exam Neurological Exam: Alert, Awake, Oriented x3 Neuro motor strength exam: Left Upper Extremity: 2/1, Right Upper Extremity: 5, Left Lower Extremity: 3, Right Lower Extremity: 5 Additional comments: Neurological improved, she remains alert, oriented x3, feeds herself, move her left upper extremity higher in comparison from previous examination. Assessment and Plan (1) Acute CVA (cerebrovascular accident) Assessment & Plan: Case discussed with Dr. Starr, continue all current medical, physical, and occupational therapies. Recommend blood pressure control. Recommend repeat CT scan of the head to evaluate progress of stroke. Status: Acute
--- NOTE | 2017-09-27 12:08 | CT ---
PROCEDURE: CT HEAD WITHOUT CONTRAST. HISTORY: follow up ischemic stroke COMPARISON: Unenhanced head CT 09/23/2017. TECHNIQUE: Axial computed tomography images were obtained through the head/brain without intravenous contrast. Radiation dose: Total exam DLP = 837.97 mGy-cm. This CT exam was performed using one or more of the following dose reduction techniques: Automated exposure control, adjustment of the mA and/or kV according to patient size, and/or use of iterative reconstruction technique. FINDINGS: HEMORRHAGE: No intracranial hemorrhage. BRAIN: Increased definition is appreciated related to subacute/early chronic infarction inferior medial left cerebellum in the interval. No significant mass effect is identified at this time with remaining supra and infratentorial yang and white matter structures otherwise unremarkable. VENTRICLES: Unremarkable. No hydrocephalus. CALVARIUM: Unremarkable. PARANASAL SINUSES: Unremarkable as visualized. No significant inflammatory changes. MASTOID AIR CELLS: Unremarkable as visualized. No inflammatory changes. OTHER FINDINGS: None. IMPRESSION: Inferior left cerebellar infarct in evolution as described above. No acute intracranial hemorrhage or significant mass effect.
[2017-09-27] MEDS: Nitroglycerin 2% Ointment Foilpak UD TOP SCH ×3 (13:11→22:05)
--- NOTE | 2017-09-27 13:27 | CP.CCUPN ---
CCU Subjective - Physician Review Subjective (Free Text): Did not participate with PT today as compared to yesterday. Eyes closed, lying in bed, had left arm pain ( of which she has had for almost 1 month) and medicated with Dilaudid at approx. 800AM, now has chest tightness with pressure sensation over sternal area, no nausea, no diaphoresis, no radiation, no palpitations, no SOB, remains on Heparin drip. SBP now 179, HR 73 sinus. Other VS and I/Os reviewed. Afebrile without fever spikes, SBPs down from 190 s on admission. ROS: No other pertinent negs or positives on 10+ system review. PMSFH: All other Nursing and physician documentation reviewed to date; no new pertinent info noted relevant to current medical problems. EXAM- HEENT: no icterus, no gaze preference, pupils equal and reactive, no icterus NECK: No JVD, supple, carotids equal upstroke bilat/no bruits CHEST: decreased BS bases, otherwise clear bilat, no wheezes audible HEART: regular distant, S1S2, no rubs. ABD: soft, no distention, no tympany or tenderness, BS present. EXT: No peripheral/ digital cyanosis, no calf tenderness or palpable cords, distal pulses intact and symmetrical. NEURO: left shoulder and LUE weakness noted, no gross deficits LLE nor R side. SKIN: no rashes, warm and dry. CXR: admission film- clear bilaterally (my interp). LABS: WBC= 24.1 HGB= 9.7 PLTs= 488K Na= 145 K= 3.7 CL= 107 HCO3=21 BUN/Cr= 15/0.8 BS= 132 MAJOR PROBLEMS: 1. CVA with multiple acute infarcts over L parietal area, L Medial Cerebellar area and L Medulla. 2. HTN Post CVA 3. Distal L Vertebral Artery Occlusion 4. Thrombus L Subclavian Artery 5. Borderline Hypokalemia PLAN: 1. EKG done and negative for acute pathology, will trial topical NTP or SL NTG. Chest discomfort may be related to Left subclavian artery thrombus. 2. On Heparin drip, may need residential AC therapy. Discussed with PMD, who wishes to defer decision to Hematology regarding choice of AC medication. 3. GILBERT done yesterday negative for thrombus , ASD. 4. PT /OT 5. Muniz discontinued, but retaining urine and dysuric, replaced today AM. 6. No edema or spinal cord pathology on brain / spine imaging, consider stopping steroids and follow WBC. Hold on abx therapy. 7. Cautious BP control. [id number] BP 2 steroids as well. 8. Try to avoid narcotics for pain control, will use simple NSAIDs for now. CCU Objective - Vital Signs / Intake & Output Vital Signs (Last 4 hours): Vital Signs Temp Pulse Resp BP Pulse Ox 09/27/17 13:11 73 160/87 H 09/27/17 12:00 98.3 F 73 16 166/90 H 100 09/27/17 10:00 66 168/85 H Intake and Output (Last 8hrs): Intake & Output 09/26/17 09/27/17 09/27/17 22:59 06:59 14:59 Intake Total 554 124 242 Output Total 1600 400 600 Balance -1046 -276 -358 Weight 145 lb Intake: IV 334 124 42 Oral 220 200 Output: Urine 1600 400 600 Urethral (Muniz) 600 Urine, Voided 1000 400 600 - Medications Active Medications: Active Medications Generic Name Dose Route Start Last Admin Trade Name Freq PRN Reason Stop Dose Admin Acetaminophen 650 mg 09/24/17 11:03 Tylenol 325mg Tab PO Q8 PRN Pain, Mild (1-3) Atorvastatin Calcium 20 mg 09/21/17 14:45 09/27/17 08:09 Lipitor PO 20 mg DAILY [facility] Administration Clopidogrel Bisulfate 75 mg 09/22/17 15:15 09/27/17 08:10 Plavix PO 75 mg DAILY [facility] Administration Dexamethasone 6 mg 09/23/17 19:15 09/27/17 12:27 Decadron Inj IVP 6 mg Q6H [facility] Administration Docusate Sodium 100 mg 09/24/17 17:00 09/27/17 08:09 Colace PO 100 mg BID [facility] Administration Famotidine 20 mg 09/22/17 09:00 09/27/17 08:10 Famotidine IVP 20 mg Q12 [facility] Administration Heparin Sodium/Dextrose 25,000 units in 250 mls @ 10.5 mls/hr 09/26/17 19:00 Heparin 25,000 Units/250ml In D5w IV .[id number] [facility] Protocol Lactulose 20 gm 09/24/17 12:34 09/25/17 20:28 Enulose PO 20 gm DAILY PRN Administration Constipation Meclizine HCl 25 mg 09/21/17 17:00 09/27/17 12:27 Antivert PO 25 mg TID [facility] Administration Metoprolol Tartrate 12.5 mg 09/25/17 09:00 09/27/17 08:06 Lopressor PO 12.5 mg Q12 [facility] Administration Nitroglycerin 1 ea 09/27/17 13:03 09/27/17 13:11 Nitro-Bid 2% Oint TOP 1 ea QID [facility] Administration Sucralfate 1 gm 09/22/17 13:00 09/27/17 12:27 Carafate Oral Susp PO 1 gm QID [facility] Administration Topiramate 50 mg 09/21/17 17:00 09/27/17 08:10 Topamax PO 50 mg BID [facility] Administration - Patient Studies Lab Studies: Lab Studies 09/27/17 09/27/17 09/27/17 Range/Units 04:40 04:40 04:40 WBC 24.1 H (4.8-10.8) K/uL RBC 4.37 (3.80-5.20) Mil/uL Hgb 9.7 L (12.0-16.0) g/dL Hct 30.6 L (34.0-47.0) % MCV 70.0 L (81.0-99.0) fl MCH 22.2 L (27.0-31.0) pg MCHC 31.7 L (33.0-37.0) g/dL RDW 21.1 H (11.5-14.5) % Plt Count 488 H (130-400) K/uL APTT 64.3 H (25.6-37.1) Seconds Protein S Antigen (70-140) % Sodium 145 (132-148) mmol/l Potassium 3.7 (3.6-5.0) MMOL/L Chloride 107 (98-107) mmol/L Carbon Dioxide 21 L (22-30) mmol/L Anion Gap 21 H (10-20) BUN 15 (7-17) mg/dl Creatinine 0.8 (0.7-1.2) mg/dl Est GFR ( Amer) > 60 Est GFR (Non-Af Amer) > 60 Random Glucose 132 H (65-105) mg/dL Calcium 9.3 (8.4-10.2) mg/dL Ethanolamine Methyl Alcohol Level Isopropanol Acetone Level Phosphatidylserine IgG (<10) U/mL Phosphatidylserine IgA (<20) U/mL Phosphatidylserine IgM (<25) U/mL Anti-Phospholipid Intrp MTHFR DNA Mutation Anal MTHFR Interpretation MTHFR Reviewed By 09/23/17 09/23/17 09/23/17 Range/Units 06:00 06:00 06:00 WBC (4.8-10.8) K/uL RBC (3.80-5.20) Mil/uL Hgb (12.0-16.0) g/dL Hct (34.0-47.0) % MCV (81.0-99.0) fl MCH (27.0-31.0) pg MCHC (33.0-37.0) g/dL RDW (11.5-14.5) % Plt Count (130-400) K/uL APTT (25.6-37.1) Seconds Protein S Antigen 111 (70-140) % Sodium (132-148) mmol/l Potassium (3.6-5.0) MMOL/L Chloride (98-107) mmol/L Carbon Dioxide (22-30) mmol/L Anion Gap (10-20) BUN (7-17) mg/dl Creatinine (0.7-1.2) mg/dl Est GFR ( Amer) Est GFR (Non-Af Amer) Random Glucose (65-105) mg/dL Calcium (8.4-10.2) mg/dL Ethanolamine Methyl Alcohol Level Isopropanol Acetone Level Phosphatidylserine IgG <10 (<10) U/mL Phosphatidylserine IgA <20 (<20) U/mL Phosphatidylserine IgM <25 (<25) U/mL Anti-Phospholipid Intrp see note MTHFR DNA Mutation Anal see note H MTHFR Interpretation see note MTHFR Reviewed By see note 09/21/17 Range/Units 16:28 WBC (4.8-10.8) K/uL RBC (3.80-5.20) Mil/uL Hgb (12.0-16.0) g/dL Hct (34.0-47.0) % MCV (81.0-99.0) fl MCH (27.0-31.0) pg MCHC (33.0-37.0) g/dL RDW (11.5-14.5) % Plt Count (130-400) K/uL APTT (25.6-37.1) Seconds Protein S Antigen (70-140) % Sodium (132-148) mmol/l Potassium (3.6-5.0) MMOL/L Chloride (98-107) mmol/L Carbon Dioxide (22-30) mmol/L Anion Gap (10-20) BUN (7-17) mg/dl Creatinine (0.7-1.2) mg/dl Est GFR ( Amer) Est GFR (Non-Af Amer) Random Glucose (65-105) mg/dL Calcium (8.4-10.2) mg/dL Ethanolamine None detected Methyl Alcohol Level None detected Isopropanol None detected Acetone Level None detected Phosphatidylserine IgG (<10) U/mL Phosphatidylserine IgA (<20) U/mL Phosphatidylserine IgM (<25) U/mL Anti-Phospholipid Intrp MTHFR DNA Mutation Anal MTHFR Interpretation MTHFR Reviewed By Laboratory Results - last 24 hr 09/21/17 09/23/17 09/23/17 16:28 06:00 06:00 WBC RBC Hgb Hct MCV MCH MCHC RDW Plt Count APTT Protein S Antigen 111 Sodium Potassium Chloride Carbon Dioxide Anion Gap BUN Creatinine Est GFR ( Amer) Est GFR (Non-Af Amer) Random Glucose Calcium Ethanolamine None detected Methyl Alcohol Level None detected Isopropanol None detected Acetone Level None detected Phosphatidylserine IgG Phosphatidylserine IgA Phosphatidylserine IgM Anti-Phospholipid Intrp MTHFR DNA Mutation Anal see note H MTHFR Interpretation see note MTHFR Reviewed By see note 09/23/17 09/27/17 09/27/17 06:00 04:40 04:40 WBC 24.1 H RBC 4.37 Hgb 9.7 L Hct 30.6 L MCV 70.0 L MCH 22.2 L MCHC 31.7 L RDW 21.1 H Plt Count 488 H APTT Protein S Antigen Sodium 145 Potassium 3.7 Chloride 107 Carbon Dioxide 21 L Anion Gap 21 H BUN 15 Creatinine 0.8 Est GFR ( Amer) > 60 Est GFR (Non-Af Amer) > 60 Random Glucose 132 H Calcium 9.3 Ethanolamine Methyl Alcohol Level Isopropanol Acetone Level Phosphatidylserine IgG <10 Phosphatidylserine IgA <20 Phosphatidylserine IgM <25 Anti-Phospholipid Intrp see note MTHFR DNA Mutation Anal MTHFR Interpretation MTHFR Reviewed By 09/27/17 04:40 WBC RBC Hgb Hct MCV MCH MCHC RDW Plt Count APTT 64.3 H Protein S Antigen Sodium Potassium Chloride Carbon Dioxide Anion Gap BUN Creatinine Est GFR ( Amer) Est GFR (Non-Af Amer) Random Glucose Calcium Ethanolamine Methyl Alcohol Level Isopropanol Acetone Level Phosphatidylserine IgG Phosphatidylserine IgA Phosphatidylserine IgM Anti-Phospholipid Intrp MTHFR DNA Mutation Anal MTHFR Interpretation MTHFR Reviewed By EKG/Cardiology Studies: Cardiology / EKG Studies 09/27/17 EKG [ELECTROCARDIOGRAM] Stat Mode Of Transportation: Reason For Exam: chest tightness, h/o Left SC artery thrombosis Comment: Fingerstick Blood Sugar Results: 111 Review of Systems - Review of Systems All systems: reviewed and no additional remarkable complaints except (as above) Critical Care Progress Note - Nutrition Nutrition: Nutrition Category Date Time Status Regular Diet [DIET] Diets 09/21/17 Dinner Active
--- NOTE | 2017-09-27 14:47 | CARD ---
APPROVED REPORT EKG Measurement Heart [id number] <Conclusion> Normal sinus rhythm Normal ECG
--- NOTE | 2017-09-27 15:48 | CP.PCM.PN ---
Subjective - Date & Time of Evaluation Date of Evaluation: 09/26/17 Time of Evaluation: 12:00 - Subjective Subjective: Has blurry vision Objective - Vital Signs/Intake and Output Vital Signs (last 24 hours): Temp Pulse Resp BP Pulse Ox 98.3 F 52 L 16 172/82 H 100 09/27/17 12:00 09/27/17 14:00 09/27/17 12:00 09/27/17 14:00 09/27/17 12:00 Intake and Output: 09/27/17 09/27/17 06:59 18:59 Intake Total 166 534 Output Total 1400 600 Balance -1234 -66 - Medications Medications: Current Medications Acetaminophen (Tylenol 325mg Tab) 650 mg PO Q8 PRN PRN Reason: Pain, Mild (1-3) Atorvastatin Calcium (Lipitor) 20 mg PO DAILY [facility] Last Admin: 09/27/17 08:09 Dose: 20 mg Clopidogrel Bisulfate (Plavix) 75 mg PO DAILY [facility] Last Admin: 09/27/17 08:10 Dose: 75 mg Dexamethasone (Decadron Inj) 6 mg IVP Q6H [facility] Last Admin: 09/27/17 12:27 Dose: 6 mg Docusate Sodium (Colace) 100 mg PO BID [facility] Last Admin: 09/27/17 08:09 Dose: 100 mg Famotidine (Famotidine) 20 mg IVP Q12 [facility] Last Admin: 09/27/17 08:10 Dose: 20 mg Heparin Sodium/Dextrose (Heparin 25,000 Units/250ml In D5w) 25,000 units in 250 mls @ 10.5 mls/hr IV .[id number] [facility] PRN Reason: Protocol Lactulose (Enulose) 20 gm PO DAILY PRN PRN Reason: Constipation Last Admin: 09/25/17 20:28 Dose: 20 gm Meclizine HCl (Antivert) 25 mg PO TID [facility] Last Admin: 09/27/17 12:27 Dose: 25 mg Metoprolol Tartrate (Lopressor) 12.5 mg PO Q12 [facility] Last Admin: 09/27/17 08:06 Dose: 12.5 mg Nitroglycerin (Nitro-Bid 2% Oint) 1 ea TOP QID [facility] Last Admin: 09/27/17 13:11 Dose: 1 ea Sucralfate (Carafate Oral Susp) 1 gm PO QID [facility] Last Admin: 09/27/17 12:27 Dose: 1 gm Topiramate (Topamax) 50 mg PO BID [facility] Last Admin: 09/27/17 08:10 Dose: 50 mg - Labs Labs: 09/27/17 04:40 09/27/17 04:40 PT 12.2 Seconds (9.8-13.1) 09/23/17 05:30 INR 1.1 (0.9-1.2) 09/23/17 05:30 APTT 64.3 Seconds (25.6-37.1) H 09/27/17 04:40 - Head Exam Head Exam: ATRAUMATIC - Eye Exam Eye Exam: Normal appearance - ENT Exam ENT Exam: Mucous Membranes Dry - Respiratory Exam Respiratory Exam: NORMAL BREATHING PATTERN - Cardiovascular Exam Cardiovascular Exam: +S1, +S2 - GI/Abdominal Exam GI & Abdominal Exam: Normal Bowel Sounds Assessment and Plan (1) CVA (cerebral vascular accident) Assessment & Plan: with arterial clotting protein S activity noted low - may be low as was checked during acute clotting, consumptive effect MTHFR homozygous mutation noted f/u prothrombin gene mutation and Factor V Leiden agree with antiplatelet and therapeutic anticoagulation; ultimately will benefit from terminal make up operator therapeutic anticoagulation will discuss with patient coumadin vs NOAC neuro, vascular, cardio f/u Status: Acute (2) Anemia Assessment & Plan: iron deficiency s/p PRBC transfusion no iron for now as increasing H/H will increase viscosity which may worsen CVA Status: Acute (3) Coagulopathy Assessment & Plan: anticoagulation Status: Acute (4) Leukocytosis Assessment & Plan: on steroids Status: Acute
--- NOTE | 2017-09-27 16:03 | CP.PCM.PN ---
Subjective - Date & Time of Evaluation Date of Evaluation: 09/27/17 Time of Evaluation: 11:45 - Subjective Subjective: F/U Acute CVA Pt c/o of dizziness, less pain in LUE. Objective - Vital Signs/Intake and Output Vital Signs (last 24 hours): Temp Pulse Resp BP Pulse Ox 98.3 F 52 L 16 172/82 H 100 09/27/17 12:00 09/27/17 14:00 09/27/17 12:00 09/27/17 14:00 09/27/17 12:00 Intake and Output: 09/27/17 09/27/17 06:59 18:59 Intake Total 166 534 Output Total 1400 600 Balance -1234 -66 - Medications Medications: Current Medications Acetaminophen (Tylenol 325mg Tab) 650 mg PO Q8 PRN PRN Reason: Pain, Mild (1-3) Atorvastatin Calcium (Lipitor) 20 mg PO DAILY [facility] Last Admin: 09/27/17 08:09 Dose: 20 mg Clopidogrel Bisulfate (Plavix) 75 mg PO DAILY [facility] Last Admin: 09/27/17 08:10 Dose: 75 mg Dexamethasone (Decadron Inj) 6 mg IVP Q6H [facility] Last Admin: 09/27/17 12:27 Dose: 6 mg Docusate Sodium (Colace) 100 mg PO BID [facility] Last Admin: 09/27/17 08:09 Dose: 100 mg Famotidine (Famotidine) 20 mg IVP Q12 [facility] Last Admin: 09/27/17 08:10 Dose: 20 mg Heparin Sodium/Dextrose (Heparin 25,000 Units/250ml In D5w) 25,000 units in 250 mls @ 10.5 mls/hr IV .[id number] [facility] PRN Reason: Protocol Lactulose (Enulose) 20 gm PO DAILY PRN PRN Reason: Constipation Last Admin: 09/25/17 20:28 Dose: 20 gm Meclizine HCl (Antivert) 25 mg PO TID [facility] Last Admin: 09/27/17 12:27 Dose: 25 mg Metoprolol Tartrate (Lopressor) 12.5 mg PO Q12 [facility] Last Admin: 09/27/17 08:06 Dose: 12.5 mg Nitroglycerin (Nitro-Bid 2% Oint) 1 ea TOP QID [facility] Last Admin: 09/27/17 13:11 Dose: 1 ea Sucralfate (Carafate Oral Susp) 1 gm PO QID [facility] Last Admin: 09/27/17 12:27 Dose: 1 gm Topiramate (Topamax) 50 mg PO BID [facility] Last Admin: 09/27/17 08:10 Dose: 50 mg - Labs Labs: 09/27/17 04:40 09/27/17 04:40 PT 12.2 Seconds (9.8-13.1) 09/23/17 05:30 INR 1.1 (0.9-1.2) 09/23/17 05:30 APTT 64.3 Seconds (25.6-37.1) H 09/27/17 04:40 - Constitutional Appears: No Acute Distress - Head Exam Head Exam: NORMAL INSPECTION - Eye Exam Eye Exam: PERRL - ENT Exam ENT Exam: Normal Exam - Neck Exam Neck Exam: Normal Inspection - Respiratory Exam Respiratory Exam: Clear to Ausculation Bilateral - Cardiovascular Exam Cardiovascular Exam: REGULAR RHYTHM - GI/Abdominal Exam GI & Abdominal Exam: Soft, Normal Bowel Sounds - Extremities Exam Additional comments: Decreased tenderness LUE, increased ROM LUE - Neurological Exam Neurological Exam: Alert, Oriented x3 Additional comments: Follows commands. increased ROM LUE, moves well rest of extremities. - Skin Skin Exam: Warm Assessment and Plan (1) Acute CVA (cerebrovascular accident) Status: Acute (2) Acute cerebrovascular accident (CVA) of cerebellum Status: Acute (3) New infarction of cerebellum Status: Acute (4) Migraine Status: Acute (5) Severe vertigo Status: Acute (6) Pain of left upper extremity Status: Acute (7) Left subclavian vein thrombosis Status: Acute (8) Anemia Status: Chronic (9) Vertebral artery occlusion Status: Acute - Assessment and Plan (Free Text) Plan: Unable to do PT 2nd to dizziness, had Dilaudid in 8 AM, DC pain medication, Tylenol for pain, repeated Ct of Head no new infarct, no increased from previous one. BP is high, try to keep BP at 160.
[2017-09-27] MEDS ORDERED: HYDROmorphone 0.5 mg/0.5 ml ISec IVP STA (23:49)
[2017-09-28] MEDS: Dexamethasone 4 mg/1 ml IVP SCH ×4 (01:20→20:50)
[2017-09-28] MEDS: Sucralfate 1 gm/10 ml Oral Susp UD PO SCH ×4 (09:27→21:37)
--- NOTE | 2017-09-28 09:30 | CP.PCM.PN ---
Subjective - Date & Time of Evaluation Date of Evaluation: 09/28/17 Time of Evaluation: 09:29 - Subjective Subjective: Ms. Shahid was seen and examined at the bedside. She is more alert and oriented x 3. She is able to answer questions appropriately and follow commands. She denies any headache, but claims of dizziness with every movement of her head especially on her left side. She further states of intermitent blurred vision and diplopia of the left eye which showed " lazy eyes". The temp. of her extremities are equal today with + pedal pulses. She is able to do finger to nose test with her right upper extremity with her left upper extremity remains weak. She is able to lift her left upper extremity approximately in the same level of her shoulder while in a semi-velez's position. She is able to feed herself with minimal assistance. She claims of experienced minimal nose bleed last night. No epistaxis noted this am. She is currently receiving heparin IV infusion. CT scan of the head yesterday showed inferior left cerebellar infarct in evolution. No acute intracranial hemorrhage or significant mass effect.There was no untoward events overnight. Objective - Vital Signs/Intake and Output Vital Signs (last 24 hours): Temp Pulse Resp BP Pulse Ox 98.1 F 77 18 162/84 H 98 09/28/17 08:00 09/28/17 08:00 09/28/17 08:00 09/28/17 08:00 09/28/17 08:00 Intake and Output: 09/28/17 09/28/17 06:59 18:59 Intake Total 396 Output Total 600 Balance -204 - Medications Medications: Current Medications Acetaminophen (Tylenol 325mg Tab) 650 mg PO Q4 PRN PRN Reason: Pain, Mild (1-3) Atorvastatin Calcium (Lipitor) 20 mg PO DAILY [facility] Last Admin: 09/27/17 08:09 Dose: 20 mg Clopidogrel Bisulfate (Plavix) 75 mg PO DAILY [facility] Last Admin: 09/27/17 08:10 Dose: 75 mg Dexamethasone (Decadron Inj) 6 mg IVP Q6H [facility] Last Admin: 09/28/17 01:20 Dose: 6 mg Docusate Sodium (Colace) 100 mg PO BID [facility] Last Admin: 09/27/17 16:27 Dose: 100 mg Famotidine (Famotidine) 20 mg IVP Q12 [facility] Last Admin: 09/27/17 20:46 Dose: 20 mg Heparin Sodium/Dextrose (Heparin 25,000 Units/250ml In D5w) 25,000 units in 250 mls @ 10.5 mls/hr IV .[id number] [facility] PRN Reason: Protocol Last Admin: 09/27/17 17:18 Dose: 10.5 mls/hr Lactulose (Enulose) 20 gm PO DAILY PRN PRN Reason: Constipation Last Admin: 09/25/17 20:28 Dose: 20 gm Meclizine HCl (Antivert) 25 mg PO TID [facility] Last Admin: 09/27/17 16:27 Dose: 25 mg Metoprolol Tartrate (Lopressor) 12.5 mg PO Q12 [facility] Last Admin: 09/27/17 21:13 Dose: 12.5 mg Nitroglycerin (Nitro-Bid 2% Oint) 1 ea TOP QID [facility] Last Admin: 09/27/17 22:05 Dose: 1 ea Sucralfate (Carafate Oral Susp) 1 gm PO QID [facility] Last Admin: 09/27/17 22:07 Dose: 1 gm Topiramate (Topamax) 50 mg PO BID [facility] Last Admin: 09/27/17 17:24 Dose: 50 mg - Labs Labs: 09/27/17 04:40 09/27/17 04:40 PT 12.2 Seconds (9.8-13.1) 09/23/17 05:30 INR 1.1 (0.9-1.2) 09/23/17 05:30 APTT 64.3 Seconds (25.6-37.1) H 09/27/17 04:40 - Constitutional Appears: No Acute Distress - Head Exam Head Exam: NORMAL INSPECTION - Neurological Exam Neurological Exam: Alert, Awake, Oriented x3 Neuro motor strength exam: Left Upper Extremity: 2/1, Right Upper Extremity: 5, Left Lower Extremity: 3, Right Lower Extremity: 5 Additional comments: Neurological unchanged from previous examination. Assessment and Plan (1) Acute CVA (cerebrovascular accident) Assessment & Plan: Case discussed with Dr. Starr, continue all current medical, physical, and occupational therapies. Recommend blood pressure control. Recommend monitoring epixtaxis and refer to hematology and vascular to evaluate heparin infusion. Status: Acute
[2017-09-28] MEDS: Nitroglycerin 2% Ointment Foilpak UD TOP SCH ×4 (09:35→21:38)
--- NOTE | 2017-09-28 15:27 | CP.PCM.PN ---
Subjective - Date & Time of Evaluation Date of Evaluation: 09/28/17 Time of Evaluation: 13:50 - Subjective Subjective: F/U Acute CVA Pain LUE , dizziness , blurred vision L eye Objective - Vital Signs/Intake and Output Vital Signs (last 24 hours): Temp Pulse Resp BP Pulse Ox 98.7 F 80 18 120/74 98 09/28/17 12:00 09/28/17 13:40 09/28/17 12:00 09/28/17 13:40 09/28/17 12:00 Intake and Output: 09/28/17 09/28/17 06:59 18:59 Intake Total 396 Output Total 600 Balance -204 - Medications Medications: Current Medications Acetaminophen (Tylenol 325mg Tab) 650 mg PO Q4 PRN PRN Reason: Pain, Mild (1-3) Atorvastatin Calcium (Lipitor) 20 mg PO DAILY [facility] Last Admin: 09/28/17 09:32 Dose: 20 mg Clopidogrel Bisulfate (Plavix) 75 mg PO DAILY [facility] Last Admin: 09/28/17 09:36 Dose: 75 mg Dabigatran (Pradaxa) 150 mg PO BID [facility] PRN Reason: Protocol Dexamethasone (Decadron Inj) 6 mg IVP Q6H [facility] Last Admin: 09/28/17 13:38 Dose: 6 mg Docusate Sodium (Colace) 100 mg PO BID [facility] Last Admin: 09/28/17 09:27 Dose: 100 mg Famotidine (Famotidine) 20 mg IVP Q12 [facility] Last Admin: 09/28/17 11:15 Dose: 20 mg Lactulose (Enulose) 20 gm PO DAILY PRN PRN Reason: Constipation Last Admin: 09/28/17 09:29 Dose: 20 gm Meclizine HCl (Antivert) 25 mg PO TID [facility] Last Admin: 09/28/17 13:37 Dose: 25 mg Metoprolol Tartrate (Lopressor) 12.5 mg PO Q12 [facility] Last Admin: 09/28/17 09:33 Dose: 12.5 mg Nitroglycerin (Nitro-Bid 2% Oint) 1 ea TOP QID [facility] Last Admin: 09/28/17 13:40 Dose: 1 ea Sucralfate (Carafate Oral Susp) 1 gm PO QID [facility] Last Admin: 09/28/17 13:37 Dose: 1 gm Topiramate (Topamax) 50 mg PO BID [facility] Last Admin: 09/28/17 09:36 Dose: 50 mg - Labs Labs: 09/27/17 04:40 09/27/17 04:40 PT 12.2 Seconds (9.8-13.1) 09/23/17 05:30 INR 1.1 (0.9-1.2) 09/23/17 05:30 APTT 64.3 Seconds (25.6-37.1) H 09/27/17 04:40 - Constitutional Appears: No Acute Distress - Head Exam Head Exam: NORMAL INSPECTION - Eye Exam Eye Exam: PERRL - ENT Exam ENT Exam: Normal Exam - Neck Exam Neck Exam: Normal Inspection - Respiratory Exam Respiratory Exam: Clear to Ausculation Bilateral - Cardiovascular Exam Cardiovascular Exam: REGULAR RHYTHM - GI/Abdominal Exam GI & Abdominal Exam: Soft, Normal Bowel Sounds - Extremities Exam Additional comments: increased tenderness LUE with decreased ROM - Neurological Exam Neurological Exam: Alert, Oriented x3 Additional comments: AO x 3 , blurred vision L eye , Follows commands , decreased ROM LUE due to increase pain today, moves rest of extremities. - Psychiatric Exam Psychiatric exam: Anxious - Skin Skin Exam: Warm Assessment and Plan (1) Acute CVA (cerebrovascular accident) Status: Acute (2) Acute cerebrovascular accident (CVA) of cerebellum Status: Acute (3) New infarction of cerebellum Status: Acute (4) Migraine Status: Acute (5) Severe vertigo Status: Acute (6) Pain of left upper extremity Status: Acute (7) Left subclavian vein thrombosis Status: Acute (8) Anemia Status: Chronic (9) Vertebral artery occlusion Status: Acute - Assessment and Plan (Free Text) Plan: Patient on Plavix , Heparin , Lipitor , Meclizine , Metropolol , NitroBid , 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
[2017-09-29 07:34] LABS: MEAN CELL VOLUME 70.3 fl (81.0-99.0); MEAN CORPUSCULAR HGB CONC 31.2 g/dL (33.0-37.0); RBC 4.53 Mil/uL (3.80-5.20); RED CELL DISTRIBUTION WIDTH 21.2 % (11.5-14.5); WHITE BLOOD COUNT 23.8 K/uL (4.8-10.8)
[2017-09-29] MEDS: Sucralfate 1 gm/10 ml Oral Susp UD PO SCH ×4 (09:27→22:00)
[2017-09-29] MEDS: Nitroglycerin 2% Ointment Foilpak UD TOP SCH ×4 (09:27→21:44)
--- NOTE | 2017-09-29 14:38 | CP.PCM.PN ---
Subjective - Date & Time of Evaluation Date of Evaluation: 11/29/17 Time of Evaluation: 14:32 - Subjective Subjective: Miss gamez is doing well, in good spirits with no headache, no increased weakness, no visual symptoms. on exam: Left sided drift, left le+/5, left arm 4+/5, sensory: decreased ft, pin left arm, left leg. left facial droop improved. speech fluent. Aaox3. can name and repeat. CN 2-12 normal. Gait not tested. +2 dtr ul and ll bl. Toes downgoing no clonus. Objective - Vital Signs/Intake and Output Vital Signs (last 24 hours): Temp Pulse Resp BP Pulse Ox 98.7 F 77 18 151/89 H 100 09/29/17 13:00 09/29/17 13:00 09/29/17 13:00 09/29/17 13:00 09/29/17 13:00 - Medications Medications: Current Medications Acetaminophen (Tylenol 325mg Tab) 650 mg PO Q4 PRN PRN Reason: Pain, Mild (1-3) Atorvastatin Calcium (Lipitor) 20 mg PO DAILY [facility] Last Admin: 09/29/17 09:22 Dose: 20 mg Clopidogrel Bisulfate (Plavix) 75 mg PO DAILY [facility] Last Admin: 09/29/17 09:21 Dose: 75 mg Dabigatran (Pradaxa) 150 mg PO BID [facility] PRN Reason: Protocol Last Admin: 09/29/17 09:21 Dose: 150 mg Docusate Sodium (Colace) 100 mg PO BID [facility] Last Admin: 09/29/17 09:22 Dose: 100 mg Famotidine (Famotidine) 20 mg IVP Q12 [facility] Last Admin: 09/29/17 09:28 Dose: 20 mg Lactulose (Enulose) 20 gm PO DAILY PRN PRN Reason: Constipation Last Admin: 09/28/17 09:29 Dose: 20 gm Meclizine HCl (Antivert) 25 mg PO TID [facility] Last Admin: 09/29/17 09:21 Dose: 25 mg Metoprolol Tartrate (Lopressor) 12.5 mg PO Q12 [facility] Last Admin: 09/29/17 09:20 Dose: 12.5 mg Nitroglycerin (Nitro-Bid 2% Oint) 1 ea TOP QID [facility] Last Admin: 09/29/17 09:27 Dose: 1 ea Sucralfate (Carafate Oral Susp) 1 gm PO QID [facility] Last Admin: 09/29/17 09:27 Dose: 1 gm Topiramate (Topamax) 50 mg PO BID [facility] Last Admin: 09/29/17 09:20 Dose: 50 mg Tramadol HCl (Ultram) 50 mg PO Q6 PRN PRN Reason: Pain, severe (8-10) Last Admin: 09/28/17 17:00 Dose: 50 mg - Labs Labs: 09/29/17 05:54 09/27/17 04:40 PT 12.2 Seconds (9.8-13.1) 09/23/17 05:30 INR 1.1 (0.9-1.2) 09/23/17 05:30 APTT 64.3 Seconds (25.6-37.1) H 09/27/17 04:40 Assessment and Plan - Assessment and Plan (Free Text) Assessment: 47 yr old woman with coagulopathy resulting in multiple strokes, now on pradaxa, with resolving neurological deficits. She is tolerating pradaxa quite well with no side effects. Plan: 1. continue pradaxa 2. continue physical therapy, speech and occupational 3. continue medical management. Dr. Matty MD, DPN
--- NOTE | 2017-09-29 17:26 | CP.PCM.PN ---
Subjective - Date & Time of Evaluation Date of Evaluation: 09/29/17 Time of Evaluation: 14:40 - Subjective Subjective: F/U Acute CVA Pain LUE improved today, minimal dizziness , no blurred vision Objective - Vital Signs/Intake and Output Vital Signs (last 24 hours): Temp Pulse Resp BP Pulse Ox 98.1 F 84 17 142/73 98 09/29/17 17:05 09/29/17 17:11 09/29/17 17:05 09/29/17 17:11 09/29/17 17:05 - Medications Medications: Current Medications Acetaminophen (Tylenol 325mg Tab) 650 mg PO Q4 PRN PRN Reason: Pain, Mild (1-3) Atorvastatin Calcium (Lipitor) 20 mg PO DAILY [facility] Last Admin: 09/29/17 09:22 Dose: 20 mg Clopidogrel Bisulfate (Plavix) 75 mg PO DAILY [facility] Last Admin: 09/29/17 09:21 Dose: 75 mg Dabigatran (Pradaxa) 150 mg PO BID [facility] PRN Reason: Protocol Last Admin: 09/29/17 16:59 Dose: 150 mg Docusate Sodium (Colace) 100 mg PO BID [facility] Last Admin: 09/29/17 16:58 Dose: 100 mg Famotidine (Famotidine) 20 mg IVP Q12 [facility] Last Admin: 09/29/17 09:28 Dose: 20 mg Lactulose (Enulose) 20 gm PO DAILY PRN PRN Reason: Constipation Last Admin: 09/28/17 09:29 Dose: 20 gm Meclizine HCl (Antivert) 25 mg PO TID [facility] Last Admin: 09/29/17 16:58 Dose: 25 mg Metoprolol Tartrate (Lopressor) 12.5 mg PO Q12 [facility] Last Admin: 09/29/17 09:20 Dose: 12.5 mg Nitroglycerin (Nitro-Bid 2% Oint) 1 ea TOP QID [facility] Last Admin: 09/29/17 17:11 Dose: 1 ea Sucralfate (Carafate Oral Susp) 1 gm PO QID [facility] Last Admin: 09/29/17 17:07 Dose: 1 gm Topiramate (Topamax) 50 mg PO BID [facility] Last Admin: 09/29/17 17:00 Dose: 50 mg Tramadol HCl (Ultram) 50 mg PO Q6 PRN PRN Reason: Pain, severe (8-10) Last Admin: 09/28/17 17:00 Dose: 50 mg - Labs Labs: 09/29/17 05:54 09/27/17 04:40 PT 12.2 Seconds (9.8-13.1) 09/23/17 05:30 INR 1.1 (0.9-1.2) 09/23/17 05:30 APTT 64.3 Seconds (25.6-37.1) H 09/27/17 04:40 - Constitutional Appears: Chronically Ill - Head Exam Head Exam: NORMAL INSPECTION - Eye Exam Eye Exam: PERRL - ENT Exam ENT Exam: Normal Exam - Neck Exam Neck Exam: Normal Inspection - Respiratory Exam Respiratory Exam: Clear to Ausculation Bilateral - Cardiovascular Exam Cardiovascular Exam: REGULAR RHYTHM - GI/Abdominal Exam GI & Abdominal Exam: Soft, Normal Bowel Sounds - Extremities Exam Extremities Exam: Normal Inspection - Back Exam Back Exam: NORMAL INSPECTION - Neurological Exam Neurological Exam: Alert, Oriented x3 Additional comments: increased ROM LUE , moves well rest of extremities - Psychiatric Exam Psychiatric exam: Anxious - Skin Skin Exam: Warm Assessment and Plan (1) Acute CVA (cerebrovascular accident) Status: Acute (2) Acute cerebrovascular accident (CVA) of cerebellum Status: Acute (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
--- NOTE | 2017-09-29 18:29 | CP.PCM.PN ---
Subjective - Date & Time of Evaluation Date of Evaluation: 09/28/17 Time of Evaluation: 20:00 - Subjective Subjective: Feeling better To start oral Pradaxa Objective - Vital Signs/Intake and Output Vital Signs (last 24 hours): Temp Pulse Resp BP Pulse Ox 98.1 F 84 17 142/73 98 09/29/17 17:05 09/29/17 17:11 09/29/17 17:05 09/29/17 17:11 09/29/17 17:05 - Medications Medications: Current Medications Acetaminophen (Tylenol 325mg Tab) 650 mg PO Q4 PRN PRN Reason: Pain, Mild (1-3) Atorvastatin Calcium (Lipitor) 20 mg PO DAILY [facility] Last Admin: 09/29/17 09:22 Dose: 20 mg Clopidogrel Bisulfate (Plavix) 75 mg PO DAILY [facility] Last Admin: 09/29/17 09:21 Dose: 75 mg Dabigatran (Pradaxa) 150 mg PO BID [facility] PRN Reason: Protocol Last Admin: 09/29/17 16:59 Dose: 150 mg Docusate Sodium (Colace) 100 mg PO BID [facility] Last Admin: 09/29/17 16:58 Dose: 100 mg Famotidine (Famotidine) 20 mg IVP Q12 [facility] Last Admin: 09/29/17 09:28 Dose: 20 mg Lactulose (Enulose) 20 gm PO DAILY PRN PRN Reason: Constipation Last Admin: 09/28/17 09:29 Dose: 20 gm Meclizine HCl (Antivert) 25 mg PO TID [facility] Last Admin: 09/29/17 16:58 Dose: 25 mg Metoprolol Tartrate (Lopressor) 12.5 mg PO Q12 [facility] Last Admin: 09/29/17 09:20 Dose: 12.5 mg Nitroglycerin (Nitro-Bid 2% Oint) 1 ea TOP QID [facility] Last Admin: 09/29/17 17:11 Dose: 1 ea Sucralfate (Carafate Oral Susp) 1 gm PO QID [facility] Last Admin: 09/29/17 17:07 Dose: 1 gm Topiramate (Topamax) 50 mg PO BID [facility] Last Admin: 09/29/17 17:00 Dose: 50 mg Tramadol HCl (Ultram) 50 mg PO Q6 PRN PRN Reason: Pain, severe (8-10) Last Admin: 09/28/17 17:00 Dose: 50 mg - Labs Labs: 09/29/17 05:54 09/27/17 04:40 PT 12.2 Seconds (9.8-13.1) 09/23/17 05:30 INR 1.1 (0.9-1.2) 09/23/17 05:30 APTT 64.3 Seconds (25.6-37.1) H 09/27/17 04:40 - Head Exam Head Exam: ATRAUMATIC - Eye Exam Eye Exam: Normal appearance - ENT Exam ENT Exam: Mucous Membranes Dry - Respiratory Exam Respiratory Exam: NORMAL BREATHING PATTERN - Cardiovascular Exam Cardiovascular Exam: +S1, +S2 - GI/Abdominal Exam GI & Abdominal Exam: Normal Bowel Sounds Assessment and Plan (1) CVA (cerebral vascular accident) Assessment & Plan: with arterial clotting protein S activity noted low - may be low as was checked during acute clotting, consumptive effect 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
--- NOTE | 2017-09-29 18:32 | CP.PCM.PN ---
Subjective - Date & Time of Evaluation Date of Evaluation: 09/29/17 Time of Evaluation: 17:35 - Subjective Subjective: Feeling better, less dizzy Objective - Vital Signs/Intake and Output Vital Signs (last 24 hours): Temp Pulse Resp BP Pulse Ox 98.1 F 84 17 142/73 98 09/29/17 17:05 09/29/17 17:11 09/29/17 17:05 09/29/17 17:11 09/29/17 17:05 - Medications Medications: Current Medications Acetaminophen (Tylenol 325mg Tab) 650 mg PO Q4 PRN PRN Reason: Pain, Mild (1-3) Atorvastatin Calcium (Lipitor) 20 mg PO DAILY [facility] Last Admin: 09/29/17 09:22 Dose: 20 mg Clopidogrel Bisulfate (Plavix) 75 mg PO DAILY [facility] Last Admin: 09/29/17 09:21 Dose: 75 mg Dabigatran (Pradaxa) 150 mg PO BID [facility] PRN Reason: Protocol Last Admin: 09/29/17 16:59 Dose: 150 mg Docusate Sodium (Colace) 100 mg PO BID [facility] Last Admin: 09/29/17 16:58 Dose: 100 mg Famotidine (Famotidine) 20 mg IVP Q12 [facility] Last Admin: 09/29/17 09:28 Dose: 20 mg Lactulose (Enulose) 20 gm PO DAILY PRN PRN Reason: Constipation Last Admin: 09/28/17 09:29 Dose: 20 gm Meclizine HCl (Antivert) 25 mg PO TID [facility] Last Admin: 09/29/17 16:58 Dose: 25 mg Metoprolol Tartrate (Lopressor) 12.5 mg PO Q12 [facility] Last Admin: 09/29/17 09:20 Dose: 12.5 mg Nitroglycerin (Nitro-Bid 2% Oint) 1 ea TOP QID [facility] Last Admin: 09/29/17 17:11 Dose: 1 ea Sucralfate (Carafate Oral Susp) 1 gm PO QID [facility] Last Admin: 09/29/17 17:07 Dose: 1 gm Topiramate (Topamax) 50 mg PO BID [facility] Last Admin: 09/29/17 17:00 Dose: 50 mg Tramadol HCl (Ultram) 50 mg PO Q6 PRN PRN Reason: Pain, severe (8-10) Last Admin: 09/28/17 17:00 Dose: 50 mg - Labs Labs: 09/29/17 05:54 09/27/17 04:40 PT 12.2 Seconds (9.8-13.1) 09/23/17 05:30 INR 1.1 (0.9-1.2) 09/23/17 05:30 APTT 64.3 Seconds (25.6-37.1) H 09/27/17 04:40 - Head Exam Head Exam: ATRAUMATIC - Eye Exam Eye Exam: Normal appearance - ENT Exam ENT Exam: Mucous Membranes Dry - Respiratory Exam Respiratory Exam: NORMAL BREATHING PATTERN - Cardiovascular Exam Cardiovascular Exam: +S1, +S2 - GI/Abdominal Exam GI & Abdominal Exam: Normal Bowel Sounds Assessment and Plan (1) CVA (cerebral vascular accident) Assessment & Plan: with arterial clotting protein S activity noted low - may be low as was checked during acute clotting, consumptive effect 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
--- NOTE | 2017-09-30 08:20 | CP.PCM.PN ---
Subjective - Date & Time of Evaluation Date of Evaluation: 09/30/17 Time of Evaluation: 08:19 - Subjective Subjective: Ms. Shahid was seen and examined at bedside. She is more alert and oriented x 3. She is able to answer questions appropriately and follow commands. She denies any headache and improved dizziness. She is able to lift her left upper extremity approximately in the same level of her shoulder while in a semi-velez 's position. dizziness with every movement of her head especially on her left side. She is able to do finger to nose test with her right upper extremity with her left upper extremity remains weak. She is able to lift her left upper extremity approximately in the same level of her shoulder while in a semi-velez 's position. She claims of not able to do any bowel movements for 3 days, but refused lactulose order. She also claims of receiving pain medication for her left arm. There was no untoward events overnight. Objective - Vital Signs/Intake and Output Vital Signs (last 24 hours): Temp Pulse Resp BP Pulse Ox 98.5 F 84 18 125/80 94 L 09/30/17 08:00 09/30/17 08:00 09/30/17 08:00 09/30/17 08:00 09/30/17 08:00 Intake and Output: 09/30/17 09/30/17 06:59 18:59 Intake Total 300 Output Total 650 Balance -350 - Medications Medications: Current Medications Acetaminophen (Tylenol 325mg Tab) 650 mg PO Q4 PRN PRN Reason: Pain, Mild (1-3) Atorvastatin Calcium (Lipitor) 20 mg PO DAILY [facility] Last Admin: 09/29/17 09:22 Dose: 20 mg Clopidogrel Bisulfate (Plavix) 75 mg PO DAILY [facility] Last Admin: 09/29/17 09:21 Dose: 75 mg Dabigatran (Pradaxa) 150 mg PO BID [facility] PRN Reason: Protocol Last Admin: 09/29/17 16:59 Dose: 150 mg Docusate Sodium (Colace) 100 mg PO BID [facility] Last Admin: 09/29/17 16:58 Dose: 100 mg Famotidine (Pepcid) 20 mg IVP Q12 [facility] Lactulose (Enulose) 20 gm PO DAILY PRN PRN Reason: Constipation Last Admin: 09/29/17 21:51 Dose: 20 gm Meclizine HCl (Antivert) 25 mg PO TID [facility] Last Admin: 09/29/17 16:58 Dose: 25 mg Metoprolol Tartrate (Lopressor) 12.5 mg PO Q12 [facility] Last Admin: 09/29/17 21:45 Dose: 12.5 mg Nitroglycerin (Nitro-Bid 2% Oint) 1 ea TOP QID [facility] Last Admin: 09/29/17 21:44 Dose: 1 ea Sucralfate (Carafate Oral Susp) 1 gm PO QID [facility] Last Admin: 09/29/17 22:00 Dose: 1 gm Topiramate (Topamax) 50 mg PO BID [facility] Last Admin: 09/29/17 17:00 Dose: 50 mg Tramadol HCl (Ultram) 50 mg PO Q6 PRN PRN Reason: Pain, severe (8-10) Last Admin: 09/30/17 00:44 Dose: 50 mg - Labs Labs: 09/29/17 05:54 09/27/17 04:40 PT 12.2 Seconds (9.8-13.1) 09/23/17 05:30 INR 1.1 (0.9-1.2) 09/23/17 05:30 APTT 64.3 Seconds (25.6-37.1) H 09/27/17 04:40 - Constitutional Appears: No Acute Distress - Head Exam Head Exam: NORMAL INSPECTION - Neurological Exam Neurological Exam: Alert, Awake, Oriented x3 Neuro motor strength exam: Left Upper Extremity: 2/1, Right Upper Extremity: 5, Left Lower Extremity: 5, Right Lower Extremity: 5 Additional comments: Improving left facial droop, Left sided drift, left le+/5, left arm 4+/5, sensory: decreased ft, pin left arm, left leg. Assessment and Plan (1) Acute CVA (cerebrovascular accident) Assessment & Plan: Case discussed with Dr. Starr, continue all current medical, physical, and occupational therapies. Please refer to primary regarding her constipation. Recommend rehab for discharge planning. Status: Acute
[2017-09-30] MEDS: Nitroglycerin 2% Ointment Foilpak UD TOP SCH (09:04)
[2017-09-30] MEDS: Sucralfate 1 gm/10 ml Oral Susp UD PO SCH ×4 (09:48→22:07)
--- NOTE | 2017-09-30 15:45 | CP.PCM.PN ---
Subjective - Date & Time of Evaluation Date of Evaluation: 09/30/17 Time of Evaluation: 13:20 - Subjective Subjective: F/U Acute CVA. Awake , alert , no headache , minimal dizziness, pain LUE improved , no blurred vision Objective - Vital Signs/Intake and Output Vital Signs (last 24 hours): Temp Pulse Resp BP Pulse Ox 98.7 F 84 20 103/67 98 09/30/17 12:00 09/30/17 12:00 09/30/17 12:00 09/30/17 12:00 09/30/17 12:00 Intake and Output: 09/30/17 09/30/17 06:59 18:59 Intake Total 300 Output Total 650 Balance -350 - Medications Medications: Current Medications Acetaminophen (Tylenol 325mg Tab) 650 mg PO Q4 PRN PRN Reason: Pain, Mild (1-3) Atorvastatin Calcium (Lipitor) 20 mg PO DAILY [facility] Last Admin: 09/30/17 08:55 Dose: 20 mg Clopidogrel Bisulfate (Plavix) 75 mg PO DAILY [facility] Last Admin: 09/30/17 08:56 Dose: 75 mg Dabigatran (Pradaxa) 150 mg PO BID [facility] PRN Reason: Protocol Last Admin: 09/30/17 08:56 Dose: 150 mg Docusate Sodium (Colace) 100 mg PO BID [facility] Last Admin: 09/30/17 08:54 Dose: 100 mg Famotidine (Pepcid) 20 mg IVP Q12 [facility] Last Admin: 09/30/17 09:48 Dose: 20 mg Sodium Chloride (Sodium Chloride 0.9%) 1,000 mls @ 100 mls/hr IV .Q10H [facility] Stop: 10/01/17 14:08 Lactulose (Enulose) 20 gm PO DAILY PRN PRN Reason: Constipation Last Admin: 09/30/17 09:00 Dose: 20 gm Meclizine HCl (Antivert) 25 mg PO TID [facility] Last Admin: 09/30/17 08:54 Dose: 25 mg Metoprolol Tartrate (Lopressor) 12.5 mg PO Q12 [facility] Last Admin: 09/30/17 08:55 Dose: 12.5 mg Nitroglycerin (Nitro-Bid 2% Oint) 1 ea TOP QID [facility] Last Admin: 09/30/17 09:04 Dose: 1 ea Sodium Phosphate (Fleet Enema) 135 ml OK ONCE ONE Stop: 09/30/17 21:01 Sucralfate (Carafate Oral Susp) 1 gm PO QID [facility] Last Admin: 09/30/17 09:48 Dose: 1 gm Topiramate (Topamax) 50 mg PO BID [facility] Last Admin: 09/30/17 08:57 Dose: 50 mg Tramadol HCl (Ultram) 50 mg PO Q6 PRN PRN Reason: Pain, severe (8-10) Last Admin: 09/30/17 10:49 Dose: 50 mg - Labs Labs: 09/29/17 05:54 09/27/17 04:40 PT 12.2 Seconds (9.8-13.1) 09/23/17 05:30 INR 1.1 (0.9-1.2) 09/23/17 05:30 APTT 64.3 Seconds (25.6-37.1) H 09/27/17 04:40 - Constitutional Appears: Chronically Ill - Head Exam Head Exam: NORMAL INSPECTION - Eye Exam Eye Exam: PERRL - ENT Exam ENT Exam: Normal Exam - Neck Exam Neck Exam: Normal Inspection - Respiratory Exam Respiratory Exam: Clear to Ausculation Bilateral - Cardiovascular Exam Cardiovascular Exam: REGULAR RHYTHM - GI/Abdominal Exam GI & Abdominal Exam: Soft, Normal Bowel Sounds - Extremities Exam Additional comments: minimal tenderness LUE - Back Exam Back Exam: NORMAL INSPECTION - Neurological Exam Neurological Exam: Alert, Oriented x3 Additional comments: Decreased ROM LUE - Skin Skin Exam: Warm Assessment and Plan (1) Acute CVA (cerebrovascular accident) Status: Acute (2) Acute cerebrovascular accident (CVA) of cerebellum Status: Acute (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
[2017-09-30] MEDS: Sodium Chloride 0.9% 1,000 ML IV SCH (16:36)
[2017-10-01] MEDS: Sodium Chloride 0.9% 1,000 ML IV SCH ×2 (01:57→10:20)
--- NOTE | 2017-10-01 09:36 | CP.PCM.PN ---
Subjective - Date & Time of Evaluation Date of Evaluation: 10/01/17 Time of Evaluation: 09:34 - Subjective Subjective: Ms. Kleber Sheldon was seen and examined at bedside. She is alert and oriented x 3. She is able to answer questions appropriately and follow commands. She denies any headache and improved dizziness. She is able to lift her left upper extremity approximately in the same level of her shoulder while in a semi-velez's position. She is able to do finger to nose test with her right upper extremity with her left upper extremity remains weak. She is able to lift her left upper extremity approximately in the same level of her shoulder while in a semi-velez's position.She is able to feed herself with minimal assistance.She claims of able to do bowel movements x 2 last night. There was no untoward events overnight. Objective - Vital Signs/Intake and Output Vital Signs (last 24 hours): Temp Pulse Resp BP Pulse Ox 98.1 F 78 20 125/79 99 10/01/17 08:00 10/01/17 08:00 10/01/17 08:00 10/01/17 08:00 10/01/17 08:00 - Medications Medications: Current Medications Acetaminophen (Tylenol 325mg Tab) 650 mg PO Q4 PRN PRN Reason: Pain, Mild (1-3) Atorvastatin Calcium (Lipitor) 20 mg PO DAILY [facility] Last Admin: 09/30/17 08:55 Dose: 20 mg Clopidogrel Bisulfate (Plavix) 75 mg PO DAILY [facility] Last Admin: 09/30/17 08:56 Dose: 75 mg Dabigatran (Pradaxa) 150 mg PO BID [facility] PRN Reason: Protocol Last Admin: 09/30/17 17:58 Dose: 150 mg Docusate Sodium (Colace) 100 mg PO BID [facility] Last Admin: 09/30/17 16:35 Dose: 100 mg Famotidine (Pepcid) 20 mg IVP Q12 [facility] Last Admin: 09/30/17 22:07 Dose: 20 mg Sodium Chloride (Sodium Chloride 0.9%) 1,000 mls @ 100 mls/hr IV .Q10H [facility] Stop: 10/01/17 14:08 Last Admin: 10/01/17 01:57 Dose: 100 mls/hr Lactulose (Enulose) 20 gm PO DAILY PRN PRN Reason: Constipation Last Admin: 09/30/17 09:00 Dose: 20 gm Meclizine HCl (Antivert) 25 mg PO TID [facility] Last Admin: 09/30/17 16:34 Dose: 25 mg Metoclopramide HCl (Reglan) 10 mg IVP Q6 PRN PRN Reason: Nausea/Vomiting Metoprolol Tartrate (Lopressor) 12.5 mg PO Q12 [facility] Last Admin: 09/30/17 22:08 Dose: 12.5 mg Sucralfate (Carafate Oral Susp) 1 gm PO QID [facility] Last Admin: 09/30/17 22:07 Dose: 1 gm Topiramate (Topamax) 50 mg PO BID [facility] Last Admin: 09/30/17 16:36 Dose: 50 mg Tramadol HCl (Ultram) 50 mg PO Q6 PRN PRN Reason: Pain, severe (8-10) Last Admin: 09/30/17 16:33 Dose: 50 mg - Labs Labs: 09/29/17 05:54 09/27/17 04:40 PT 12.2 Seconds (9.8-13.1) 09/23/17 05:30 INR 1.1 (0.9-1.2) 09/23/17 05:30 APTT 64.3 Seconds (25.6-37.1) H 09/27/17 04:40 - Constitutional Appears: No Acute Distress - Head Exam Head Exam: NORMAL INSPECTION - Neurological Exam Neurological Exam: Alert, Awake, Oriented x3 Neuro motor strength exam: Left Upper Extremity: 2/1, Right Upper Extremity: 5, Left Lower Extremity: 5, Right Lower Extremity: 5 Additional comments: Neurological unchanged from previous examination. Assessment and Plan (1) Acute CVA (cerebrovascular accident) Assessment & Plan: Case discussed with Dr. Starr, continue all current medical, physical, occupational therapies. Recommend repeat CT scan of the head since patient anti- coagulant was change from IV to PO to evaluate any conversion. Recommend acute rehab for discharge planning. Status: Acute
[2017-10-01] MEDS: Sucralfate 1 gm/10 ml Oral Susp UD PO SCH ×3 (09:38→16:22)
--- NOTE | 2017-10-01 11:34 | CT ---
PROCEDURE: CT HEAD WITHOUT CONTRAST. HISTORY: follow up ischemic stroke COMPARISON: Unenhanced head CT 09/27/2017. TECHNIQUE: Axial computed tomography images were obtained through the head/brain without intravenous contrast. Radiation dose: Total exam DLP = 1193.18 mGy-cm. This CT exam was performed using one or more of the following dose reduction techniques: Automated exposure control, adjustment of the mA and/or kV according to patient size, and/or use of iterative reconstruction technique. FINDINGS: HEMORRHAGE: No intracranial hemorrhage. BRAIN: Lucency at the medial inferior left cerebellar hemisphere its is slightly diminished in size. No masses appreciated. Supratentorial parenchyma remains normal appearing. VENTRICLES: Unremarkable. No hydrocephalus. CALVARIUM: Unremarkable. PARANASAL SINUSES: Unremarkable as visualized. No significant inflammatory changes. MASTOID AIR CELLS: Unremarkable as visualized. No inflammatory changes. OTHER FINDINGS: None. IMPRESSION: A small lobar infarction of the medial left cerebellum is again appreciated though lucency appears to have diminished in the interval. Follow-up CT advised. No significant mass effect or interval intracranial hemorrhage appreciable.
[2017-10-01 13:04] LABS: HEMOGLOBIN 10.4 g/dL (12.0-16.0); MEAN CELL VOLUME 71.1 fl (81.0-99.0); MEAN CORPUSCULAR HEMOGLOBIN 21.8 pg (27.0-31.0); MEAN CORPUSCULAR HGB CONC 30.7 g/dL (33.0-37.0); RBC 4.75 Mil/uL (3.80-5.20); RED CELL DISTRIBUTION WIDTH 21.4 % (11.5-14.5); WHITE BLOOD COUNT 18.4 K/uL (4.8-10.8)
[2017-10-01 13:14] LABS: BLOOD UREA NITROGEN 11 mg/dl (7-17); CALCIUM 8.9 mg/dL (8.4-10.2); GFR AFRICAN-AMERICAN > 60; GFR NON-AFRICAN AMERICAN > 60
[2017-10-01] MEDS ORDERED: Potassium Chloride 20 mEq ER Tab PO ONE (13:50)
--- NOTE | 2017-10-01 14:03 | CP.PCM.PCO ---
Assessment/Plan - Assessment/Plan Assessment (Free Text): Patient seen and examined. Afebrile and normotensive. Awake alert fatigued at times Participated in physical therapy today. Reviewed today ct scan with Neurology-stable infarct remain, Plan to continue decadron taper and anticoagulation Meds reconciled and reviewed dc plan with Dr Alejo and patient and family Pt for acute rehab continuation of care. - Problems Patient Problems: Problem List (Active/Current) Problem Status Onset Code Acute CVA (cerebrovascular accident) Acute I63.9 Acute cerebrovascular accident (CVA) of cerebellum Acute I63.9 CVA (cerebral vascular accident) Acute I63.9 Coagulopathy Acute D68.9 History of bleeding peptic ulcer Acute Z87.11 Intractable headache Acute R51 Left subclavian vein thrombosis Acute I82.B12 Leukocytosis Acute D72.829 Migraine Acute G43.909 New infarction of cerebellum Acute I63.9 New infarction of cerebellum Acute I63.9 Pain of left upper extremity Acute M79.602 Severe dizziness Acute R42 Severe vertigo Acute R42 Subclavian artery thrombosis Acute I74.8 Vertebral artery occlusion Acute I65.09 Anemia Chronic D64.9
[2017-10-01 16:03] VITALS: BP 114/72; PULSE 95; RESP 18; TEMP 98.9; O2SAT 98
--- NOTE | 2017-10-01 16:04 | CP.PCM.DIS ---
Provider - Provider Date of Admission: 09/22/17 19:00 Attending physician: Lei Alejo MD Diagnosis - Discharge Diagnosis (1) Acute CVA (cerebrovascular accident) Status: Acute (2) Acute cerebrovascular accident (CVA) of cerebellum Status: Acute (3) New infarction of cerebellum Status: Acute (4) Migraine Status: Acute (5) Severe vertigo Status: Acute (6) Pain of left upper extremity Status: Acute (7) Left subclavian vein thrombosis Status: Acute (8) Anemia Status: Chronic (9) Vertebral artery occlusion Status: Acute Hospital Course - Lab Results Lab Results: Micro Results 09/27/17 07:59 Naris MRSA Culture (Admit) - Final MRSA NOT DETECTED Most Recent Lab Values WBC 18.4 K/uL (4.8-10.8) H 10/01/17 12:38 RBC 4.75 Mil/uL (3.80-5.20) 10/01/17 12:38 Hgb 10.4 g/dL (12.0-16.0) L 10/01/17 12:38 Hct 33.8 % (34.0-47.0) L 10/01/17 12:38 MCV 71.1 fl (81.0-99.0) L 10/01/17 12:38 MCH 21.8 pg (27.0-31.0) L 10/01/17 12:38 MCHC 30.7 g/dL (33.0-37.0) L 10/01/17 12:38 RDW 21.4 % (11.5-14.5) H 10/01/17 12:38 Plt Count 538 K/uL (130-400) H 10/01/17 12:38 MPV 7.8 fl (7.2-11.7) 09/25/17 04:30 Neut % (Auto) 90.2 % (50.0-75.0) H 09/25/17 04:30 Lymph % (Auto) 6.0 % (20.0-40.0) L 09/25/17 04:30 [place] % (Auto) 3.7 % (0.0-10.0) 09/25/17 04:30 Eos % (Auto) 0.0 % (0.0-4.0) 09/25/17 04:30 Baso % (Auto) 0.1 % (0.0-2.0) 09/25/17 04:30 Neut # (Auto) 29.9 K/uL (1.8-7.0) H 09/25/17 04:30 Lymph # (Auto) 2.0 K/uL (1.0-4.3) 09/25/17 04:30 [place] # (Auto) 1.2 K/uL (0.0-0.8) H 09/25/17 04:30 Eos # (Auto) 0.0 K/uL (0.0-0.7) 09/25/17 04:30 Baso # (Auto) 0.0 K/uL (0.0-0.2) 09/25/17 04:30 Neutrophils % (Manual) 91 % (42-75) H 09/25/17 04:30 Band Neutrophils % 3 % (0-2) H 09/25/17 04:30 Lymphocytes % (Manual) 4 % (20-50) L 09/25/17 04:30 Monocytes % (Manual) 2 % (0-10) 09/25/17 04:30 Platelet Estimate Normal (NORMAL) 09/25/17 04:30 Plt Clumps, EDTA 09/25/17 04:30 Large Platelets Present 09/25/17 04:30 Giant Platelets Present 09/25/17 04:30 Hypochromasia (manual) Slight 09/24/17 06:00 Poikilocytosis (manual Slight 09/25/17 04:30 Anisocytosis (manual) Slight 09/25/17 04:30 Microcytosis (manual) Slight 09/25/17 04:30 Macrocytosis (manual) Slight 09/21/17 07:45 Spherocytes Slight 09/25/17 04:30 Tear Drop Cells Slight 09/24/17 06:00 Ovalocytes Slight 09/25/17 04:30 Schistocytes Slight 09/24/17 06:00 Retic Count 1.5 % (0.5-1.5) 09/24/17 06:00 PT 12.2 Seconds (9.8-13.1) 09/23/17 05:30 INR 1.1 (0.9-1.2) 09/23/17 05:30 APTT 64.3 Seconds (25.6-37.1) H 09/27/17 04:40 Protein C Antigen 99 % (70-140) 09/23/17 06:00 Protein C Activity 91 % (70-180) 09/23/17 06:00 Protein S Activity 57 % (60-140) L 09/23/17 06:00 Protein S Antigen 111 % (70-140) 09/23/17 06:00 Antithrombin III Activ 121 % activity (80-120) H 09/23/17 06:00 Factor V see note 09/23/17 06:00 Factor V Activity 117 % (65-150) 09/23/17 06:00 Sodium 144 mmol/l (132-148) 10/01/17 12:38 Potassium 3.2 MMOL/L (3.6-5.0) L 10/01/17 12:38 Chloride 107 mmol/L (98-107) 10/01/17 12:38 Carbon Dioxide 20 mmol/L (22-30) L 10/01/17 12:38 Anion Gap 20 (10-20) 10/01/17 12:38 BUN 11 mg/dl (7-17) 10/01/17 12:38 Creatinine 0.9 mg/dl (0.7-1.2) 10/01/17 12:38 Est GFR ( Amer) > 60 10/01/17 12:38 Est GFR (Non-Af Amer) > 60 10/01/17 12:38 POC Glucose (mg/dL) 105 mg/dL (65-110) 10/01/17 12:33 Random Glucose 110 mg/dL (65-105) H 10/01/17 12:38 Hemoglobin A1c 5.9 % (4.2-6.5) 09/24/17 06:00 Lactic Acid 1.0 MMOL/L (0.7-2.1) 09/22/17 16:30 Calcium 8.9 mg/dL (8.4-10.2) 10/01/17 12:38 Phosphorus 1.8 mg/dl (2.5-4.5) L 09/24/17 06:00 Magnesium 2.1 MG/DL (1.6-2.3) 09/24/17 06:00 Iron 29 ug/dL (37-170) L 09/22/17 04:42 TIBC 367 ug/dL (250-450) 09/22/17 04:42 % Saturation 8 % (20-55) L 09/22/17 04:42 Ferritin 8.7 ng/Ml (6.24-137.0) 09/24/17 06:00 Total Bilirubin 0.2 mg/dl (0.2-1.3) 09/25/17 04:30 AST 23 U/L (14-36) 09/25/17 04:30 ALT 27 U/L (9-52) 09/25/17 04:30 Alkaline Phosphatase 65 U/L (38-126) 09/25/17 04:30 Troponin I < 0.0120 ng/mL (0.00-0.120) 09/22/17 17:00 Total Protein 6.9 G/DL (6.3-8.2) 09/25/17 04:30 Albumin 3.6 g/dL (3.5-5.0) 09/25/17 04:30 Globulin 3.3 gm/dL (2.2-3.9) 09/25/17 04:30 Albumin/Globulin Ratio 1.1 (1.0-2.1) 09/25/17 04:30 Triglycerides 171 mg/DL (0-149) H 09/22/17 09:02 Cholesterol 211 mg/dL (0-199) H 09/22/17 09:02 LDL Cholesterol Direct 155 mg/dL (0-129) H 09/22/17 09:02 HDL Cholesterol 33 MG/DL (30-70) 09/22/17 09:02 Vitamin B12 420 pg/mL (239-931) 09/24/17 06:00 Folate 6.0 ng/mL 09/24/17 06:00 RBC Folate 1143 ng/mL RBC (>280) 09/22/17 04:42 Ethanolamine None detected 09/21/17 16:28 Procalcitonin 0.11 NG/ML (0.19-0.49) L 09/21/17 16:28 Thyroxine (T4) 10.7 ug/dl (5.5-11.0) 09/22/17 09:02 TSH 3rd Generation 1.04 mIU/ML (0.46-4.68) 09/22/17 09:02 Urine Opiates Screen Positive (NEGATIVE) H 03/09/18 16:11 Urine Methadone Screen Negative (NEGATIVE) 09/21/17 16:11 Ur Barbiturates Screen Negative (NEGATIVE) 09/21/17 16:11 Ur Phencyclidine Scrn Negative (NEGATIVE) 09/21/17 16:11 Ur Amphetamines Screen Negative (NEGATIVE) 09/21/17 16:11 U Benzodiazepines Scrn Negative (NEGATIVE) 09/21/17 16:11 U Oth Cocaine Metabols Negative (NEGATIVE) 09/21/17 16:11 U Cannabinoids Screen Negative (NEGATIVE) 09/21/17 16:11 Toxicology Panel see note 09/21/17 16:28 Methyl Alcohol Level None detected 09/21/17 16:28 Isopropanol None detected 09/21/17 16:28 Acetone Level None detected 09/21/17 16:28 Eocp-7-Cafhxqeoapna Ab <9 KALINA (<=20) 09/23/17 06:00 Beta-2 GPI IgG Ab <9 SGU (<=20) 09/23/17 06:00 Beta-2 GPI IgM Ab <9 SMU (<=20) 09/23/17 06:00 Phosphatidylserine IgG <10 U/mL (<10) 09/23/17 06:00 Phosphatidylserine IgA <20 U/mL (<20) 09/23/17 06:00 Phosphatidylserine IgM <25 U/mL (<25) 09/23/17 06:00 Anti-Phospholipid Intrp see note 09/23/17 06:00 Anti-Cardiolipin IgG Ab <14 GPL (<=14) 09/23/17 06:00 Anti-Cardiolipin IgA Ab <11 APL (<=11) 09/23/17 06:00 Anti-Cardiolipin IgM Ab <12 MPL (<=12) 09/23/17 06:00 MTHFR DNA Mutation Anal see note H 09/23/17 06:00 MTHFR Interpretation see note 09/23/17 06:00 MTHFR Reviewed By see note 09/23/17 06:00 Prothrombin Mut Interp see note 09/23/17 06:00 Prothrombin Gene Mutate see note 09/23/17 06:00 Prothromb Gene Review see note 09/23/17 06:00 Blood Type A POSITIVE 09/23/17 09:55 Antibody Screen Negative 09/23/17 09:55 Crossmatch See Detail 09/23/17 09:55 BBK History Checked Patient has bt 09/23/17 09:55 Discharge Exam - Head Exam Head Exam: NORMAL INSPECTION Discharge Plan - Discharge Medications Prescriptions: Dexamethasone [Decadron] 4 mg PO Q12 #10 tab - Follow Up Plan Condition: GUARDED Disposition: HOME/ ROUTINE
== END 2017-10-01 16:55 | DRG 65 ==
LOC: H.ER 06:49 → H.ERHOLD 11:38 → H.TEL 14:18 → H.ICU/CCU 18:17 → OBSVTOIN 09-22 19:00 → H.TEL 09-27 21:57
PROVIDERS: ADMIT Internal Medicine Pulmonary Disease; ATTEND Internal Medicine Pulmonary Disease
PROC: 30233N1 Transfusion of Nonautologous Red Blood Cells into Peripheral Vein, Percutaneous Approach (ICD-10-PCS; 2017-09-23)
PROC: B245ZZ4 Ultrasonography of Left Heart, Transesophageal (ICD-10-PCS; principal; 2017-09-25 14:00)
DX: I63.9 Cerebral infarction, unspecified (principal); I82.B12 Acute embolism and thrombosis of left subclavian vein; I42.1 Obstructive hypertrophic cardiomyopathy; D68.9 Coagulation defect, unspecified; I48.91 Unspecified atrial fibrillation; M48.02 Spinal stenosis, cervical region; G43.909 Migraine, unspecified, not intractable, without status migrainosus; D50.9 Iron deficiency anemia, unspecified; I65.23 Occlusion and stenosis of bilateral carotid arteries; I65.02 Occlusion and stenosis of left vertebral artery; E87.6 Hypokalemia; K27.9 Peptic ulcer, site unspecified, unspecified as acute or chronic, without hemorrhage or perforation; E78.5 Hyperlipidemia, unspecified; E78.00 Pure hypercholesterolemia, unspecified; D72.828 Other elevated white blood cell count; H55.00 Unspecified nystagmus; N92.0 Excessive and frequent menstruation with regular cycle

== ENCOUNTER 2017-10-01 11:34 | Inpatient (IN) | payer BC ==
[2017-10-01 12:49] VITALS: BMI 27.3
--- NOTE | 2017-10-01 18:13 | PCM.OPOC ---
Physiatry Overall Plan of Care - Overall Plan of Care Estimated Length of Stay in Weeks: 2 Rehab Impairment: Mobility, Gait, Coordination Etiologic Diagnosis: Cerebrovascular Accident Rehab/Medical Prognosis: Good - Anticipated Interventions Physical Therapy:: Yes Occupational Therapy:: Yes Speech Therapy:: No Recreational Therapy:: Yes - Therapy Goals Bed Mobility: Independent Ambulation: Independent Functional Positional Changes:: Independent - Discharge Plan Discharge Destination: Home
--- NOTE | 2017-10-01 18:17 | CP.PCM.CON ---
History of Present Illness - History of Present Illness History of Present Illness: Dr Miller PMR consultation on Nella Shahid, born 1970, who has been admitted to [facility] for acute inpatient rehabilitation following an acute onset of left HP. MRI showed left medulla infarct. UE weakness is greater than lower extremity. No prior CVA/TIA. Review of Systems - Constitutional Constitutional: absent: Anorexia, Chills - EENT Eyes: absent: Blind Spots Ears: absent: Decreased Hearing Nose/Mouth/Throat: absent: Nasal Congestion - Cardiovascular Cardiovascular: absent: Chest Pain, Diaphoresis, Edema - Respiratory Respiratory: absent: Dyspnea - Gastrointestinal Gastrointestinal: absent: Abdominal Pain, Belching - Genitourinary Genitourinary: absent: Difficulty Urinating - Musculoskeletal Musculoskeletal: absent: Back Pain - Integumentary Integumentary: absent: Unusual Bruising, Wounds - Neurological Neurological: Weakness (left UE>LE) - Psychiatric Psychiatric: Anxiety (mild) Past Patient History - Past Medical History & Family History Past Medical History?: Yes - Past Social History Smoking Status: Never Smoked Alcohol: Occasional Drugs: Denies Home Situation {Lives}: With Family (few entry steps) - CARDIAC Hx Cardiac Disorders: Yes (SEVERE SINUS BRADYCARDIA PRESENTLY BEING EVALUATED BY PCP) - PULMONARY Hx Respiratory Disorders: No - NEUROLOGICAL Hx Migraine: Yes - HEENT Hx Epistaxis: Yes - RENAL Hx Chronic Kidney Disease: No - ENDOCRINE/METABOLIC Hx Endocrine Disorders: No - HEMATOLOGICAL/ONCOLOGICAL Hx Anemia: Yes - INTEGUMENTARY Hx Dermatological Problems: No - MUSCULOSKELETAL/RHEUMATOLOGICAL Hx Falls: No - GASTROINTESTINAL Hx Gastrointestinal Disorders: Yes Hx Ulcer: Yes - GENITOURINARY/GYNECOLOGICAL Hx Genitourinary Disorders: No - PSYCHIATRIC Hx Psychophysiologic Disorder: No Hx Substance Use: No - SURGICAL HISTORY Hx Surgeries: Yes Hx Tubal Ligation: Yes - ANESTHESIA Hx Anesthesia: Yes Hx Anesthesia Reactions: No Hx Malignant Hyperthermia: No Meds Allergies/Adverse Reactions: Allergies Allergy/AdvReac Type Severity Reaction Status Date / Time eggplant Allergy NAUSEA Uncoded 10/01/17 12:40 Physical Exam - Constitutional Appears: Well, Non-toxic, No Acute Distress - Head Exam Head Exam: ATRAUMATIC, NORMAL INSPECTION, NORMOCEPHALIC - Eye Exam Eye Exam: EOMI Pupil Exam: NORMAL ACCOMODATION - ENT Exam ENT Exam: Mucous Membranes Moist - Respiratory Exam Respiratory Exam: NORMAL BREATHING PATTERN - Cardiovascular Exam Cardiovascular Exam: REGULAR RHYTHM - GI/Abdominal Exam GI & Abdominal Exam: absent: Distended - Extremities Exam Extremities exam: Negative for: calf tenderness - Back Exam Back exam: NORMAL INSPECTION - Neurological Exam Neurological exam: Alert, CN II-XII Intact, Oriented x3 - Psychiatric Exam Psychiatric exam: Normal Affect, Normal Mood - Skin Skin Exam: Normal Color Assessment & Plan - Assessment and Plan (Free Text) Assessment: PT/OT to continue to help increase functional independence Team conference for d/c planning Pain: controlled Vascular: no evidence of DVT GI: No evidence of constipation or diarrhea Patient is an excellent acute rehabilitation candidate and will have focused PT , OT and recreational therapy to help facilitate a safe and appropriate d/c plan impairment code 01.1
[2017-10-01] MEDS: Sucralfate 1 gm/10 ml Oral Susp UD PO SCH (21:18)
[2017-10-02] MEDS: Sucralfate 1 gm/10 ml Oral Susp UD PO SCH ×4 (08:35→21:01)
--- NOTE | 2017-10-02 09:36 | CP.PCM.CON ---
History of Present Illness - History of Present Illness History of Present Illness: 47 year old female admitted with acute CVA, found to have a left vertebral artery and left subclavian thrombus, started on anticoagulation, curently admitted to rehab. The patient underwent an inherited thrombophilia work up and was found to have a mild decrease in protein S activity which may be due to testing during her acute CVA. She also had a homozygous mutation of MTHFR gene. She is currently feeling well. She is participating in rehab and reports to being motivated. Past medical history: CVA Past surgical history: None Family history: Mother had a stroke in her 40s Social history: Denies tobacco, alcohol, and illicit drug use. Allergies: NKDA Review of systems: All remaining review of systems including HEENT, cardiovascular, respiratory, gastrointestinal, genitourinary, musculoskeletal, dermatologic, neurologic, and psychiatric are negative unless mentioned in the HPI. Past Patient History - Past Medical History & Family History Past Medical History?: Yes - Past Social History Smoking Status: Never Smoked Alcohol: Occasional Drugs: Denies Home Situation {Lives}: With Family (few entry steps) - CARDIAC Hx Cardiac Disorders: Yes (SEVERE SINUS BRADYCARDIA PRESENTLY BEING EVALUATED BY PCP) - PULMONARY Hx Respiratory Disorders: No - NEUROLOGICAL Hx Migraine: Yes - HEENT Hx Epistaxis: Yes - RENAL Hx Chronic Kidney Disease: No - ENDOCRINE/METABOLIC Hx Endocrine Disorders: No - HEMATOLOGICAL/ONCOLOGICAL Hx Anemia: Yes - INTEGUMENTARY Hx Dermatological Problems: No - MUSCULOSKELETAL/RHEUMATOLOGICAL Hx Falls: No - GASTROINTESTINAL Hx Gastrointestinal Disorders: Yes Hx Ulcer: Yes - GENITOURINARY/GYNECOLOGICAL Hx Genitourinary Disorders: No - PSYCHIATRIC Hx Psychophysiologic Disorder: No Hx Substance Use: No - SURGICAL HISTORY Hx Surgeries: Yes Hx Tubal Ligation: Yes - ANESTHESIA Hx Anesthesia: Yes Hx Anesthesia Reactions: No Hx Malignant Hyperthermia: No Meds Allergies/Adverse Reactions: Allergies Allergy/AdvReac Type Severity Reaction Status Date / Time eggplant Allergy NAUSEA Uncoded 10/01/17 12:40 - Medications Medications: Current Medications Acetaminophen (Tylenol 325mg Tab) 650 mg PO Q4 PRN PRN Reason: Pain, Mild (1-3) Atorvastatin Calcium (Lipitor) 20 mg PO HS NAIMA Chlorpromazine (Thorazine) 25 mg PO Q6 PRN PRN Reason: Hiccups Last Admin: 10/01/17 20:17 Dose: 25 mg Clopidogrel Bisulfate (Plavix) 75 mg PO DAILY [facility] Last Admin: 10/02/17 08:35 Dose: 75 mg Dabigatran (Pradaxa) 150 mg PO BID [facility] PRN Reason: Protocol Last Admin: 10/02/17 08:34 Dose: 150 mg Dexamethasone (Decadron) 4 mg PO Q12 [facility] Last Admin: 10/02/17 08:36 Dose: 4 mg Docusate Sodium (Colace) 100 mg PO BID [facility] Last Admin: 10/02/17 08:35 Dose: 100 mg Famotidine (Pepcid) 20 mg PO Q12 [facility] Last Admin: 10/02/17 08:36 Dose: 20 mg Lactulose (Enulose) 20 gm PO DAILY PRN PRN Reason: Constipation Last Admin: 10/01/17 21:19 Dose: 20 gm Meclizine HCl (Antivert) 25 mg PO TID [facility] Last Admin: 10/02/17 08:35 Dose: 25 mg Metoclopramide HCl (Reglan) 10 mg IVP Q6 PRN PRN Reason: Nausea/Vomiting Metoprolol Tartrate (Lopressor) 12.5 mg PO Q12 [facility] Sodium Phosphate (Fleet Enema) 135 ml [place] DAILY PRN PRN Reason: Constipation Last Admin: 10/01/17 22:23 Dose: 135 ml Sucralfate (Carafate Oral Susp) 1 gm PO QID [facility] Last Admin: 10/02/17 08:35 Dose: 1 gm Topiramate (Topamax) 50 mg PO Q12 [facility] Last Admin: 10/02/17 08:34 Dose: 50 mg Tramadol HCl (Ultram) 50 mg PO Q6 PRN PRN Reason: Pain, severe (8-10) Physical Exam - Head Exam Head Exam: ATRAUMATIC - Eye Exam Eye Exam: Normal appearance - ENT Exam ENT Exam: Mucous Membranes Dry - Respiratory Exam Respiratory Exam: NORMAL BREATHING PATTERN - Cardiovascular Exam Cardiovascular Exam: +S1, +S2 - GI/Abdominal Exam GI & Abdominal Exam: Normal Bowel Sounds - Extremities Exam Extremities exam: Positive for: normal inspection - Neurological Exam Neurological exam: Oriented x3 - Psychiatric Exam Psychiatric exam: Normal Affect, Normal Mood - Skin Skin Exam: Warm Results - Vital Signs Recent Vital Signs: Last Vital Signs Temp 98.1 F 10/02/17 06:41 Pulse 91 H 10/01/17 21:18 Resp 20 03/19/18 20:00 BP 135/73 10/01/17 21:18 Pulse Ox 99 10/01/17 20:00 Assessment & Plan (1) 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 Status: Chronic Priority: Medium
--- NOTE | 2017-10-02 10:59 | CP.PCM.CON ---
History of Present Illness - History of Present Illness History of Present Illness: SURGERY CONSULT NOTE FOR DR. AMBRIZ 47F now in rehab doing well. Patient has been working with physical therapy. No acute events. Seeing patient for follow up on left subclavian artery thrombosis with unknown source. 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 [employer] Past Patient History - Past Medical History & Family History Past Medical History?: Yes - Past Social History Smoking Status: Never Smoked Alcohol: Occasional Drugs: Denies Home Situation {Lives}: With Family (few entry steps) - CARDIAC Hx Cardiac Disorders: Yes (SEVERE SINUS BRADYCARDIA PRESENTLY BEING EVALUATED BY PCP) - PULMONARY Hx Respiratory Disorders: No - NEUROLOGICAL Hx Migraine: Yes - HEENT Hx Epistaxis: Yes - RENAL Hx Chronic Kidney Disease: No - ENDOCRINE/METABOLIC Hx Endocrine Disorders: No - HEMATOLOGICAL/ONCOLOGICAL Hx Anemia: Yes - INTEGUMENTARY Hx Dermatological Problems: No - MUSCULOSKELETAL/RHEUMATOLOGICAL Hx Falls: No - GASTROINTESTINAL Hx Gastrointestinal Disorders: Yes Hx Ulcer: Yes - GENITOURINARY/GYNECOLOGICAL Hx Genitourinary Disorders: No - PSYCHIATRIC Hx Psychophysiologic Disorder: No Hx Substance Use: No - SURGICAL HISTORY Hx Surgeries: Yes Hx Tubal Ligation: Yes - ANESTHESIA Hx Anesthesia: Yes Hx Anesthesia Reactions: No Hx Malignant Hyperthermia: No Meds Allergies/Adverse Reactions: Allergies Allergy/AdvReac Type Severity Reaction Status Date / Time eggplant Allergy NAUSEA Uncoded 10/01/17 12:40 - Medications Medications: Current Medications Acetaminophen (Tylenol 325mg Tab) 650 mg PO Q4 PRN PRN Reason: Pain, Mild (1-3) Atorvastatin Calcium (Lipitor) 20 mg PO HS NAIMA Chlorpromazine (Thorazine) 25 mg PO Q6 PRN PRN Reason: Hiccups Last Admin: 10/01/17 20:17 Dose: 25 mg Clopidogrel Bisulfate (Plavix) 75 mg PO DAILY [facility] Last Admin: 10/02/17 08:35 Dose: 75 mg Dabigatran (Pradaxa) 150 mg PO BID [facility] PRN Reason: Protocol Last Admin: 10/02/17 08:34 Dose: 150 mg Dexamethasone (Decadron) 4 mg PO Q12 [facility] Last Admin: 10/02/17 08:36 Dose: 4 mg Docusate Sodium (Colace) 100 mg PO BID [facility] Last Admin: 10/02/17 08:35 Dose: 100 mg Famotidine (Pepcid) 20 mg PO Q12 [facility] Last Admin: 10/02/17 08:36 Dose: 20 mg Lactulose (Enulose) 20 gm PO DAILY PRN PRN Reason: Constipation Last Admin: 10/01/17 21:19 Dose: 20 gm Meclizine HCl (Antivert) 25 mg PO TID [facility] Last Admin: 10/02/17 08:35 Dose: 25 mg Metoclopramide HCl (Reglan) 10 mg IVP Q6 PRN PRN Reason: Nausea/Vomiting Metoprolol Tartrate (Lopressor) 12.5 mg PO Q12 [facility] Sodium Phosphate (Fleet Enema) 135 ml [place] DAILY PRN PRN Reason: Constipation Last Admin: 10/01/17 22:23 Dose: 135 ml Sucralfate (Carafate Oral Susp) 1 gm PO QID [facility] Last Admin: 10/02/17 08:35 Dose: 1 gm Topiramate (Topamax) 50 mg PO Q12 [facility] Last Admin: 10/02/17 08:34 Dose: 50 mg Tramadol HCl (Ultram) 50 mg PO Q6 PRN PRN Reason: Pain, severe (8-10) Physical Exam - Constitutional Appears: Well, Non-toxic, No Acute Distress - Eye Exam Eye Exam: EOMI, PERRL - Respiratory Exam Respiratory Exam: Clear to Auscultation Bilateral, NORMAL BREATHING PATTERN - Cardiovascular Exam Cardiovascular Exam: REGULAR RHYTHM, +S1, +S2 - GI/Abdominal Exam GI & Abdominal Exam: Soft. absent: Distended, Firm, Guarding, Rebound, Rigid, Tenderness - Extremities Exam Extremities exam: Negative for: pedal edema, tenderness - Neurological Exam Neurological exam: Alert, Oriented x3 Additional comments: continue to have decreased strength on the left side - Psychiatric Exam Psychiatric exam: Normal Affect, Normal Mood - Skin Skin Exam: Dry, Intact, Normal Color, Warm Results - Vital Signs Recent Vital Signs: Last Vital Signs Temp 97.9 F 10/02/17 07:30 Pulse 119 H 10/02/17 09:30 Resp 20 10/02/17 07:30 BP 127/78 10/02/17 09:30 Pulse Ox 98 10/02/17 07:30 Assessment & Plan - Assessment and Plan (Free Text) Assessment: 47F presents with stroke with left side subclavian and vertebral artery thrombosis Plan: Patient seen, examined with Dr. Ambriz at bedside. Plan discussed with Dr. Ambriz Will plan for CTA of aortic arch and great vessels. Huang Santillan, PGY2
--- NOTE | 2017-10-02 13:20 | PSY.TMCNF ---
Nursing - Vital Signs Vital Signs (Last 8 hours): Vital Signs 10/02/17 10/02/17 10/02/17 06:41 07:30 09:30 Temperature 98.1 F 97.9 F Pulse Rate 100 H 119 H Respiratory 20 Rate Blood Pressure 141/65 127/78 O2 Sat by Pulse 98 Oximetry 10/02/17 10:30 Temperature Pulse Rate 115 H Respiratory Rate Blood Pressure 123/77 O2 Sat by Pulse Oximetry Pain: 0 - Medications/Other Issues Comment: Pt is at moderate nutritional risk, will be seen for initial assessment by 10/04/17. - Bladder Management Bladder Pattern: Frequency Voiding Method: Bedside Commode, Bedpan - Bowel Management Bowel Pattern: Normal - Patient/Family Teaching Comments: N/A Physical Therapy - Transfers Sit to Stand: Verbal Cues, Contact Guard, Minimal Assistance - Ambulation Level of Assistance: Minimal Assistance, Moderate Assistance Distance (ft.): 45 Assistive Devices: Rolling Walker - Stair Negotiation Stairs: Level of Assistance: Not Tested - Standing Balance Static Stand: Moderate Assistance Dynamic Stand: Moderate Assistance, Maximal Assistance - Pain Management Techniques: Medication - Assessment/Plan Assessment: Ms. Shahid is a 47 year old female admitted to [facility] acute rehab on 10/01/17. Patient requires moderate complexity decision making and condition is evolving. Patient's PT POC is impacted by history of anemia, migraines and her active/healthy pre-morbid lifestyle. Patient requires minimal to moderate assistance for mobility and has impaired balance 2' vestibular dysfunction. Patient also presents with impaired left sided strength, left coordination and motor control. Patient will benefit from comprehensive therapy with emphasis on safety and mobility. PT recommends home discharge with support of family, home care and home PT services following completion of full length of stay in acute rehab. - Provider Therapist: Macey License Number: [id number] Occupational Therapy - Arousal/Attention/Orientation Patient Orientation: Person, Place, Time, Appropriate to Age, Appropriate to Situation - Pain Alleviating Techniques: Medication - Assessment/Plan Assessment: Ms. Shahid is a 47 year old female admitted to [facility] acute rehab on 10/01/17. Patient requires moderate complexity decision making and condition is evolving. Patient's PT POC is impacted by history of anemia, migraines and her active/healthy pre-morbid lifestyle. Patient requires minimal to moderate assistance for mobility and has impaired balance 2' vestibular dysfunction. Patient also presents with impaired left sided strength, left coordination and motor control. Patient will benefit from comprehensive therapy with emphasis on safety and mobility. PT recommends home discharge with support of family, home care and home PT services following completion of full length of stay in acute rehab. Speech Therapy - Plan Assessment: Ms. Shahid is a 47 year old female admitted to [facility] acute rehab on 10/01/17. Patient requires moderate complexity decision making and condition is evolving. Patient's PT POC is impacted by history of anemia, migraines and her active/healthy pre-morbid lifestyle. Patient requires minimal to moderate assistance for mobility and has impaired balance 2' vestibular dysfunction. Patient also presents with impaired left sided strength, left coordination and motor control. Patient will benefit from comprehensive therapy with emphasis on safety and mobility. PT recommends home discharge with support of family, home care and home PT services following completion of full length of stay in acute rehab. Recreational Therapy - Assessment Assessment/Plan: Ms. Shahid is a 47 year old female admitted to [facility] acute rehab on 10/01/17. Patient requires moderate complexity decision making and condition is evolving. Patient's PT POC is impacted by history of anemia, migraines and her active/healthy pre-morbid lifestyle. Patient requires minimal to moderate assistance for mobility and has impaired balance 2' vestibular dysfunction. Patient also presents with impaired left sided strength , left coordination and motor control. Patient will benefit from comprehensive therapy with emphasis on safety and mobility. PT recommends home discharge with support of family, home care and home PT services following completion of full length of stay in acute rehab. Nutrition - Current Diet Current Diet/ Supplement/ Feedings: Heart healthy diet with Ensure Pudding TID - Appetite Percent Meal Consumed: 75-100% - Comments Comments: N/A - Assessment/Goals/Time Frame Assessment/Goals/Time Frame: Pt is at moderate nutritional risk, will be seen for initial assessment by 10/04/17. - Provider Provider: Jayda Elizondo MS, RD Case Management - Discharge Plan Discharge Plan: Home with significant other/family Rehabilitation Plan - Treatment Plan Treatment Plan: Physical Therapy, Occupational Therapy, Dietary, Patient/Family Education - Discharge Plan Estimated Date of Discharge: 10/23/17 Discharge to: Home
--- NOTE | 2017-10-02 13:47 | CP.PCM.PN ---
Subjective - Date & Time of Evaluation Date of Evaluation: 10/02/17 Time of Evaluation: 13:46 - Subjective Subjective: Patient seen in the room and in good spirits already with further left UE return compared with last night in spite of good strength in LE has significant balance issues so my initial assessment that she would be here two weeks may be premature and likely will need three weeks of therapies. Objective - Vital Signs/Intake and Output Vital Signs (last 24 hours): Temp Pulse Resp BP Pulse Ox 97.9 F 115 H 20 123/77 98 10/02/17 07:30 10/02/17 10:30 10/02/17 07:30 10/02/17 10:30 10/02/17 07:30 - Medications Medications: Current Medications Acetaminophen (Tylenol 325mg Tab) 650 mg PO Q4 PRN PRN Reason: Pain, Mild (1-3) Atorvastatin Calcium (Lipitor) 20 mg PO HS [facility] Chlorpromazine (Thorazine) 25 mg PO Q6 PRN PRN Reason: Hiccups Last Admin: 10/01/17 20:17 Dose: 25 mg Clopidogrel Bisulfate (Plavix) 75 mg PO DAILY [facility] Last Admin: 10/02/17 08:35 Dose: 75 mg Dabigatran (Pradaxa) 150 mg PO BID [facility] PRN Reason: Protocol Last Admin: 10/02/17 08:34 Dose: 150 mg Dexamethasone (Decadron) 4 mg PO Q12 [facility] Last Admin: 10/02/17 08:36 Dose: 4 mg Docusate Sodium (Colace) 100 mg PO BID [facility] Last Admin: 10/02/17 08:35 Dose: 100 mg Famotidine (Pepcid) 20 mg PO Q12 [facility] Last Admin: 10/02/17 08:36 Dose: 20 mg Lactulose (Enulose) 20 gm PO DAILY PRN PRN Reason: Constipation Last Admin: 10/01/17 21:19 Dose: 20 gm Meclizine HCl (Antivert) 25 mg PO TID [facility] Last Admin: 10/02/17 13:09 Dose: 25 mg Metoclopramide HCl (Reglan) 10 mg IVP Q6 PRN PRN Reason: Nausea/Vomiting Metoprolol Tartrate (Lopressor) 12.5 mg PO Q12 [facility] Last Admin: 10/02/17 10:30 Dose: Not Given Sodium Phosphate (Fleet Enema) 135 ml [place] DAILY PRN PRN Reason: Constipation Last Admin: 10/01/17 22:23 Dose: 135 ml Sucralfate (Carafate Oral Susp) 1 gm PO QID [facility] Last Admin: 10/02/17 13:08 Dose: 1 gm Topiramate (Topamax) 50 mg PO Q12 [facility] Last Admin: 10/02/17 08:34 Dose: 50 mg Tramadol HCl (Ultram) 50 mg PO Q6 PRN PRN Reason: Pain, severe (8-10)
--- NOTE | 2017-10-02 15:16 | CP.PCM.HP ---
History of Present Illness - History of Present Illness History of Present Illness: 47 y/o F, multiple chronic admitted to [facility] on 09/21/17 with main Dx. Acute CVA. Pt was transferred to ICU unit after MRI Brain showing stable infarct in the L Parietal lobe. New moderate to large acute infarct in the L medial cerebellum and L medulla. Also Head/Neck CT showed: L subclavian Artery thrombosis. On 10/01/17, medical condition was stable and PT was transferred to Acute Rehab Unit, [facility], to be Tx for mobility, gait and coordination impairment. Present on Admission - Present on Admission Any Indicators Present on Admission: No Review of Systems - Constitutional Constitutional: Weakness - EENT Eyes: Other (negative) Ears: Other (negative) Nose/Mouth/Throat: Other (negative) - Cardiovascular Cardiovascular: Other (negative) - Respiratory Respiratory: Other (negative) - Gastrointestinal Gastrointestinal: Other (negative) - Genitourinary Genitourinary: Other (negative) - Musculoskeletal Musculoskeletal: Back Pain - Integumentary Integumentary: Other (negative) - Neurological Neurological: Weakness (UE>LE) - Psychiatric Psychiatric: Other (negative) - Endocrine Endocrine: Other (negative) - Hematologic/Lymphatic Hematologic: Other (negative) Past Patient History - Past Medical History & Family History Past Medical History?: Yes Pertinent Family History: unknown - Past Social History Smoking Status: Never Smoked Alcohol: Occasional Drugs: Denies Home Situation {Lives}: With Family (few entry steps) - CARDIAC Hx Cardiac Disorders: Yes (SEVERE SINUS BRADYCARDIA PRESENTLY BEING EVALUATED BY PCP) - PULMONARY Hx Respiratory Disorders: No - NEUROLOGICAL Hx Migraine: Yes - HEENT Hx Epistaxis: Yes - RENAL Hx Chronic Kidney Disease: No - ENDOCRINE/METABOLIC Hx Endocrine Disorders: No - HEMATOLOGICAL/ONCOLOGICAL Hx Anemia: Yes - INTEGUMENTARY Hx Dermatological Problems: No - MUSCULOSKELETAL/RHEUMATOLOGICAL Hx Falls: No - GASTROINTESTINAL Hx Gastrointestinal Disorders: Yes Hx Ulcer: Yes - GENITOURINARY/GYNECOLOGICAL Hx Genitourinary Disorders: No - PSYCHIATRIC Hx Psychophysiologic Disorder: No Hx Substance Use: No - SURGICAL HISTORY Hx Surgeries: Yes Hx Tubal Ligation: Yes - ANESTHESIA Hx Anesthesia: Yes Hx Anesthesia Reactions: No Hx Malignant Hyperthermia: No Meds Allergies/Adverse Reactions: Allergies Allergy/AdvReac Type Severity Reaction Status Date / Time eggplant Allergy NAUSEA Uncoded 03/19/18 12:40 Physical Exam - Constitutional Appears: No Acute Distress - Head Exam Head Exam: NORMAL INSPECTION - Eye Exam Eye Exam: PERRL - ENT Exam ENT Exam: Normal Exam - Neck Exam Neck exam: Positive for: Normal Inspection - Respiratory Exam Respiratory Exam: Clear to Auscultation Bilateral - Cardiovascular Exam Cardiovascular Exam: REGULAR RHYTHM - GI/Abdominal Exam GI & Abdominal Exam: Normal Bowel Sounds, Soft - Extremities Exam Extremities exam: Positive for: tenderness (LUE) - Neurological Exam Neurological exam: Alert, Oriented x3 Additional comments: Decreased ROM LUE - Skin Skin Exam: Warm Results - Vital Signs Recent Vital Signs: Last Vital Signs Temp 97.9 F 10/02/17 07:30 Pulse 115 H 10/02/17 10:30 Resp 20 10/02/17 07:30 BP 123/77 10/02/17 10:30 Pulse Ox 98 10/02/17 07:30 reviewed J.P. - Labs Labs: reviewed J.P. Assessment & Plan (1) Acute CVA (cerebrovascular accident) Status: Acute Priority: High (2) New infarction of cerebellum Status: Acute Priority: High (3) Vertebral artery occlusion Status: Acute Priority: High (4) Parietal lobe infarction Status: Acute Priority: High Comment: Left. (5) Subclavian artery thrombosis Status: Acute Priority: High (6) Anemia Status: Chronic Priority: Medium - Assessment and Plan (Free Text) Plan: Continue Plavix, Pradaxa, Topamax, Lipitor, Antivert, PT, OT to increase functional dependance, and rest of Tx, Neuro-Surgeon, Book Reviewer, Hematology consult appreciated. - Date & Time Date: 10/02/17 Time: 12:20
[2017-10-03] MEDS ORDERED: Iohexol 300 100 ML IJ ONE (08:03)
[2017-10-03] MEDS: Sucralfate 1 gm/10 ml Oral Susp UD PO SCH ×4 (08:49→21:11)
--- NOTE | 2017-10-03 14:25 | CT ---
PROCEDURE: CT NECK AND CHEST WITH CONTRAST HISTORY: access progression of subclavian thrombus COMPARISON: Thoracic correlation is made with prior chest CT 11/29/2015 with limited neck correlation with prior CTA of the head and neck 09/21/2017. TECHNIQUE: A CT examination of the neck and chest was performed from the skullbase to the diaphragms with reformatted datasets provided in sagittal axial coronal planes separately for the neck and chest. Intravenous contrast was administered as defined below. Contrast Dose: Omnipaque 300, 100 cc Radiation dose:Total exam DLP = 977.83 mGy-cm. This CT exam was performed using one or more of the following dose reduction techniques: Automated exposure control, adjustment of the mA and/or kV according to patient size, and/or use of iterative reconstruction technique. FINDINGS: NECK: The distal left vertebral artery remains under opacified and therefore remains either occluded segmentally (firm whenever causes be it thrombus, dissection or other etiologies) or could be markedly hypoplastic. The latter is not favored. Robust opacification remains at the basilar artery as imaged in this exam as well as the distal right vertebral artery. There is residual thrombus identified at the medial side of the proximal left subclavian artery. The borders of thrombus are less well defined. Follow-up CT is recommended. The bilateral carotid arterial systems remain widely patent as well as the right subclavian artery. No significant mass is identified in the supra or infrahyoid neck of the salivary glands and the thyroid gland grossly nonfocal in appearance. The pharynx, oral cavity, larynx and thoracic inlet are unremarkable exclusive of the left subclavian artery thrombus and there is no suspicious lymphadenopathy. Note, dental hardware generates artifact obscuring the anterior to mid oral cavity somewhat. CHEST: There is no infiltrate, central airway or parenchymal lesion appreciable. There is no pneumothorax or significant lymphadenopathy. The thoracic inlet is unremarkable exclusive of left subclavian arterial thrombus. The thoracic aorta and main pulmonary artery segment appear unremarkable. Cardiac size is normal a limited images are better reflects probable hepatic steatosis diffusely and a linear radiodensity in the stomach which is partially distended with retained food. IMPRESSION: Likely diminished thrombus in the proximal left subclavian artery. There is persistent lack of opacification of the distal left vertebral artery suggesting occlusion though there is still a possibility there is segmental hypoplasia. Future imaging of the left subclavian artery should be performed via CT angiogram of the neck or of the arch of the aorta as standard CT of the neck or chest does not maximize opacification of the great arteries.
--- NOTE | 2017-10-03 15:19 | CP.PCM.PN ---
Subjective - Date & Time of Evaluation Date of Evaluation: 10/03/17 Time of Evaluation: 11:20 - Subjective Subjective: F/U Acute CVA Pt able to ambulate with a walker and help from PT, also c/o of dry nose, requesting nasal drops. Objective - Vital Signs/Intake and Output Vital Signs (last 24 hours): Temp Pulse Resp BP Pulse Ox 97.5 F L 104 H 20 134/89 98 10/03/17 08:28 10/03/17 10:50 10/03/17 08:28 10/03/17 10:50 10/03/17 08:28 - Medications Medications: Current Medications Acetaminophen (Tylenol 325mg Tab) 650 mg PO Q4 PRN PRN Reason: Pain, Mild (1-3) Atorvastatin Calcium (Lipitor) 20 mg PO HS [facility] Last Admin: 10/02/17 21:02 Dose: 20 mg Chlorpromazine (Thorazine) 25 mg PO Q6 PRN PRN Reason: Hiccups Last Admin: 10/02/17 20:30 Dose: 25 mg Clopidogrel Bisulfate (Plavix) 75 mg PO DAILY [facility] Last Admin: 10/03/17 08:50 Dose: 75 mg Dabigatran (Pradaxa) 150 mg PO BID [facility] PRN Reason: Protocol Last Admin: 10/03/17 08:51 Dose: 150 mg Dexamethasone (Decadron) 4 mg PO Q12 [facility] Last Admin: 10/03/17 08:49 Dose: 4 mg Docusate Sodium (Colace) 100 mg PO BID [facility] Last Admin: 10/03/17 08:48 Dose: 100 mg Famotidine (Pepcid) 20 mg PO Q12 [facility] Last Admin: 10/03/17 08:50 Dose: 20 mg Lactulose (Enulose) 20 gm PO DAILY PRN PRN Reason: Constipation Last Admin: 10/01/17 21:19 Dose: 20 gm Meclizine HCl (Antivert) 25 mg PO TID [facility] Last Admin: 10/03/17 12:40 Dose: 25 mg Metoclopramide HCl (Reglan) 10 mg IVP Q6 PRN PRN Reason: Nausea/Vomiting Metoprolol Tartrate (Lopressor) 12.5 mg PO Q12 [facility] Last Admin: 10/03/17 10:50 Dose: 12.5 mg Sodium Chloride ([place] Nasal [place]) 2 sprays PRABHAKAR Q4 PRN PRN Reason: Nasal congestion Sodium Phosphate (Fleet Enema) 135 ml [place] DAILY PRN PRN Reason: Constipation Last Admin: 10/01/17 22:23 Dose: 135 ml Sucralfate (Carafate Oral Susp) 1 gm PO QID [facility] Last Admin: 10/03/17 12:40 Dose: 1 gm Topiramate (Topamax) 50 mg PO Q12 [facility] Last Admin: 10/03/17 08:51 Dose: 50 mg Tramadol HCl (Ultram) 50 mg PO Q6 PRN PRN Reason: Pain, severe (8-10) - Constitutional Appears: No Acute Distress - Head Exam Head Exam: NORMAL INSPECTION - Eye Exam Eye Exam: PERRL - ENT Exam ENT Exam: Normal Exam - Neck Exam Neck Exam: Normal Inspection - Respiratory Exam Respiratory Exam: Clear to Ausculation Bilateral - Cardiovascular Exam Cardiovascular Exam: REGULAR RHYTHM - GI/Abdominal Exam GI & Abdominal Exam: Soft, Normal Bowel Sounds - Extremities Exam Extremities Exam: Tenderness (minimal L arm, able to lift in aduction the L upper extremity above the shoulder level.) - Back Exam Back Exam: tenderness (LUE) - Neurological Exam Neurological Exam: Alert, Oriented x3 Additional comments: Decreased ROM LUE - Skin Skin Exam: Warm Assessment and Plan (1) Acute CVA (cerebrovascular accident) Status: Acute (2) New infarction of cerebellum Status: Acute (3) Vertebral artery occlusion Status: Acute (4) Parietal lobe infarction Status: Acute (5) Subclavian artery thrombosis Status: Acute (6) Anemia Status: Chronic - Assessment and Plan (Free Text) Plan: Continue Plavix, Topamax, Pradaxa, Decadron, Lopressor, Lipitor and rest of Tx, PT,OT.
--- NOTE | 2017-10-03 16:44 | CP.PCM.PN ---
Subjective - Date & Time of Evaluation Date of Evaluation: 10/03/17 Time of Evaluation: 16:43 - Subjective Subjective: Patient seen in the room doing well still with significant coordination issues more than strength continue current care Objective - Vital Signs/Intake and Output Vital Signs (last 24 hours): Temp Pulse Resp BP Pulse Ox 97.5 F L 106 H 20 134/89 98 10/03/17 08:28 10/03/17 15:53 10/03/17 08:28 10/03/17 15:53 10/03/17 08:28 - Medications Medications: Current Medications Acetaminophen (Tylenol 325mg Tab) 650 mg PO Q4 PRN PRN Reason: Pain, Mild (1-3) Atorvastatin Calcium (Lipitor) 20 mg PO HS [facility] Last Admin: 10/02/17 21:02 Dose: 20 mg Chlorpromazine (Thorazine) 25 mg PO Q6 PRN PRN Reason: Hiccups Last Admin: 10/02/17 20:30 Dose: 25 mg Clopidogrel Bisulfate (Plavix) 75 mg PO DAILY [facility] Last Admin: 10/03/17 08:50 Dose: 75 mg Dabigatran (Pradaxa) 150 mg PO BID [facility] PRN Reason: Protocol Last Admin: 10/03/17 08:51 Dose: 150 mg Dexamethasone (Decadron) 4 mg PO Q12 [facility] Last Admin: 10/03/17 08:49 Dose: 4 mg Docusate Sodium (Colace) 100 mg PO BID [facility] Last Admin: 10/03/17 08:48 Dose: 100 mg Famotidine (Pepcid) 20 mg PO Q12 [facility] Last Admin: 10/03/17 08:50 Dose: 20 mg Lactulose (Enulose) 20 gm PO DAILY PRN PRN Reason: Constipation Last Admin: 10/01/17 21:19 Dose: 20 gm Meclizine HCl (Antivert) 25 mg PO TID [facility] Last Admin: 10/03/17 12:40 Dose: 25 mg Metoclopramide HCl (Reglan) 10 mg IVP Q6 PRN PRN Reason: Nausea/Vomiting Metoprolol Tartrate (Lopressor) 12.5 mg PO Q12 [facility] Last Admin: 10/03/17 10:50 Dose: 12.5 mg Sodium Chloride ([place] Nasal [place]) 2 sprays PRABHAKAR Q4 PRN PRN Reason: Nasal congestion Sodium Phosphate (Fleet Enema) 135 ml [place] DAILY PRN PRN Reason: Constipation Last Admin: 10/01/17 22:23 Dose: 135 ml Sucralfate (Carafate Oral Susp) 1 gm PO QID [facility] Last Admin: 10/03/17 12:40 Dose: 1 gm Topiramate (Topamax) 50 mg PO Q12 [facility] Last Admin: 10/03/17 08:51 Dose: 50 mg Tramadol HCl (Ultram) 50 mg PO Q6 PRN PRN Reason: Pain, severe (8-10)
[2017-10-03] MEDS: Nasal Spray(Ocean spray) NAS PRN (17:18)
[2017-10-04] MEDS: Sucralfate 1 gm/10 ml Oral Susp UD PO SCH ×4 (08:35→21:36)
--- NOTE | 2017-10-04 10:45 | CP.PCM.CON ---
History of Present Illness - History of Present Illness History of Present Illness: Ms. Kleber Sheldon 47 y/o F, multiple chronic admitted to [facility] on 04/02 with main Dx. Acute CVA. Pt was transferred to ICU unit after MRI Brain showing stable infarct in the L Parietal lobe. Follow up CT scan showed new moderate to large acute infarct in the L medial cerebellum and L medulla. Also Head/Neck CT showed: L subclavian Artery thrombosis which she was treated with intravenous anti-coagulant. The patient at that time has a minimal movement of her left upper extremity with episode of dizziness. The intravenous anti- coagulant was changed to PO per recommendations from hematology. Follow up CT of the neck and chest showed diminished thrombus in the proximal left subclavian artery. There is a persistent lack of opacification of the distal left vertebral artery suggesting occlusion though is still a possibility of a segmental hypoplasisa. At present, she is alert, oriented in all spheres. She denies headache, dizziness, blurred vision, diplopia, nausea, or vomiting. She states of intermittent blurring of vision, but not today. There was no untoward event overnight. Review of Systems - Review of Systems All systems: reviewed and no additional remarkable complaints except Past Patient History - Past Medical History & Family History Past Medical History?: Yes - Past Social History Smoking Status: Never Smoked Alcohol: Occasional Drugs: Denies Home Situation {Lives}: With Family (few entry steps) - CARDIAC Hx Cardiac Disorders: Yes (SEVERE SINUS BRADYCARDIA PRESENTLY BEING EVALUATED BY PCP) - PULMONARY Hx Respiratory Disorders: No - NEUROLOGICAL Hx Migraine: Yes - HEENT Hx Epistaxis: Yes - RENAL Hx Chronic Kidney Disease: No - ENDOCRINE/METABOLIC Hx Endocrine Disorders: No - HEMATOLOGICAL/ONCOLOGICAL Hx Anemia: Yes - INTEGUMENTARY Hx Dermatological Problems: No - MUSCULOSKELETAL/RHEUMATOLOGICAL Hx Falls: No - GASTROINTESTINAL Hx Gastrointestinal Disorders: Yes Hx Ulcer: Yes - GENITOURINARY/GYNECOLOGICAL Hx Genitourinary Disorders: No - PSYCHIATRIC Hx Psychophysiologic Disorder: No Hx Substance Use: No - SURGICAL HISTORY Hx Surgeries: Yes Hx Tubal Ligation: Yes - ANESTHESIA Hx Anesthesia: Yes Hx Anesthesia Reactions: No Hx Malignant Hyperthermia: No Meds Allergies/Adverse Reactions: Allergies Allergy/AdvReac Type Severity Reaction Status Date / Time eggplant Allergy NAUSEA Uncoded 10/01/17 12:40 - Medications Medications: Current Medications Acetaminophen (Tylenol 325mg Tab) 650 mg PO Q4 PRN PRN Reason: Pain, Mild (1-3) Atorvastatin Calcium (Lipitor) 20 mg PO HS [facility] Last Admin: 10/03/17 21:11 Dose: 20 mg Chlorpromazine (Thorazine) 25 mg PO Q6 PRN PRN Reason: Hiccups Last Admin: 10/03/17 21:11 Dose: 25 mg Clopidogrel Bisulfate (Plavix) 75 mg PO DAILY [facility] Last Admin: 10/04/17 08:39 Dose: 75 mg Dabigatran (Pradaxa) 150 mg PO BID [facility] PRN Reason: Protocol Last Admin: 10/04/17 08:39 Dose: 150 mg Dexamethasone (Decadron) 4 mg PO Q12 [facility] Last Admin: 10/04/17 08:36 Dose: 4 mg Docusate Sodium (Colace) 100 mg PO BID [facility] Last Admin: 10/04/17 08:35 Dose: 100 mg Famotidine (Pepcid) 20 mg PO Q12 [facility] Last Admin: 10/04/17 08:39 Dose: 20 mg Lactulose (Enulose) 20 gm PO DAILY PRN PRN Reason: Constipation Last Admin: 10/01/17 21:19 Dose: 20 gm Meclizine HCl (Antivert) 25 mg PO TID [facility] Last Admin: 10/04/17 08:35 Dose: 25 mg Metoclopramide HCl (Reglan) 10 mg IVP Q6 PRN PRN Reason: Nausea/Vomiting Metoprolol Tartrate (Lopressor) 12.5 mg PO Q12 [facility] Last Admin: 10/04/17 08:38 Dose: 12.5 mg Sodium Chloride ([place] Nasal [place]) 2 sprays PRABHAKAR Q4 PRN PRN Reason: Nasal congestion Last Admin: 10/03/17 17:18 Dose: 2 spr Sodium Phosphate (Fleet Enema) 135 ml [place] DAILY PRN PRN Reason: Constipation Last Admin: 10/01/17 22:23 Dose: 135 ml Sucralfate (Carafate Oral Susp) 1 gm PO QID [facility] Last Admin: 10/04/17 08:35 Dose: 1 gm Topiramate (Topamax) 50 mg PO Q12 [facility] Last Admin: 10/04/17 08:39 Dose: 50 mg Tramadol HCl (Ultram) 50 mg PO Q6 PRN PRN Reason: Pain, severe (8-10) Physical Exam - Constitutional Appears: No Acute Distress - Head Exam Head Exam: NORMAL INSPECTION - Eye Exam Pupil Exam: PERRL - ENT Exam ENT Exam: Mucous Membranes Moist, Normal Exam - Neck Exam Neck exam: Positive for: Normal Inspection - Respiratory Exam Respiratory Exam: Clear to Auscultation Bilateral, NORMAL BREATHING PATTERN - Cardiovascular Exam Cardiovascular Exam: +S1, +S2 - GI/Abdominal Exam GI & Abdominal Exam: Normal Bowel Sounds, Soft. absent: Tenderness - Extremities Exam Extremities exam: Positive for: normal inspection Additional comments: left upper extremity weakness - Neurological Exam Neurological exam: Alert, CN II-XII Intact, Normal Gait, Oriented x3 - Expanded Neurological Exam Expanded Patient oriented to: person, place, time Cranial nerves: EOM's Intact: Normal, Facial [place] w/o Forehead Movement: Normal, Facial Sensation: Normal, Gag Reflex: Normal, Nystagmus: Normal, Tongue Deviation: Normal Cerebellar Function: Finger to Nose: Normal, Heel to [place]: Normal Upper motor neuron: Pronator Drift: Abnormal Left, Sensory Extinction: Abnormal Left Sensory exam: Lower Extremity 2 Point Discrimination: Normal, Lower Extremity Light Touch: Normal, Lower Extremity Pin Prick: Normal, Lower Extremity Temperature: Normal, Upper Extremity Light Touch: Abnormal Left, Upper Extremity Pin Prick: Abnormal Left, Upper Extremity Temperature: Normal Neuro motor strength exam: Left Upper Extremity: 3, Right Upper Extremity: 5, Left Lower Extremity: 5, Right Lower Extremity: 5 - Psychiatric Exam Psychiatric exam: Normal Affect, Normal Mood Results - Vital Signs Recent Vital Signs: Last Vital Signs Temp 97.5 F L 10/04/17 08:14 Pulse 64 10/04/17 08:38 Resp 20 10/04/17 08:14 BP 140/82 10/04/17 08:38 Pulse Ox 97 10/04/17 08:14 Assessment & Plan (1) CVA (cerebral vascular accident) Assessment and Plan: Ms. Kleber Sheldon 47 y/o F, multiple chronic admitted to [facility] on 04/02 with main Dx. Acute CVA. Pt was transferred to ICU unit after MRI Brain showing stable infarct in the L Parietal lobe. She was transfer to [facility] acute rehab for for mobility, gait and coordination impairment. Case discussed with Dr. Gatica, recommend the following 1. PT, Ot eval. and treat. 2. Continue oral anticoagulation, and statin 3. Repeat CT scan of the head if any change in mental status. 4. CBC, CMP in am. Thank You. Status: Acute
--- NOTE | 2017-10-04 17:13 | CP.PCM.PN ---
Subjective - Date & Time of Evaluation Date of Evaluation: 10/04/17 Time of Evaluation: 17:12 - Subjective Subjective: Patient seen in the room with friend present doing ok ambulated 100' in therapy with min A for balance and safety denies sob/cp or joint pain Objective - Vital Signs/Intake and Output Vital Signs (last 24 hours): Temp Pulse Resp BP Pulse Ox 97.5 F L 64 20 140/82 97 10/04/17 08:14 10/04/17 08:38 10/04/17 08:14 10/04/17 08:38 10/04/17 08:14 - Medications Medications: Current Medications Acetaminophen (Tylenol 325mg Tab) 650 mg PO Q4 PRN PRN Reason: Pain Scale 4-10. Atorvastatin Calcium (Lipitor) 20 mg PO HS [facility] Last Admin: 10/03/17 21:11 Dose: 20 mg Chlorpromazine (Thorazine) 25 mg PO Q6 PRN PRN Reason: Hiccups Last Admin: 10/03/17 21:11 Dose: 25 mg Clopidogrel Bisulfate (Plavix) 75 mg PO DAILY [facility] Last Admin: 10/04/17 08:39 Dose: 75 mg Dabigatran (Pradaxa) 150 mg PO BID [facility] PRN Reason: Protocol Last Admin: 10/04/17 08:39 Dose: 150 mg Dexamethasone (Decadron) 4 mg PO Q12 [facility] Last Admin: 10/04/17 08:36 Dose: 4 mg Docusate Sodium (Colace) 100 mg PO BID [facility] Last Admin: 10/04/17 08:35 Dose: 100 mg Famotidine (Pepcid) 20 mg PO Q12 [facility] Last Admin: 10/04/17 08:39 Dose: 20 mg Lactulose (Enulose) 20 gm PO DAILY PRN PRN Reason: Constipation Last Admin: 10/01/17 21:19 Dose: 20 gm Meclizine HCl (Antivert) 25 mg PO TID [facility] Last Admin: 10/04/17 12:07 Dose: 25 mg Metoclopramide HCl (Reglan) 10 mg IVP Q6 PRN PRN Reason: Nausea/Vomiting Metoprolol Tartrate (Lopressor) 12.5 mg PO Q12 [facility] Last Admin: 10/04/17 08:38 Dose: 12.5 mg Sodium Chloride ([place] Nasal [place]) 2 sprays PRABHAKAR Q4 PRN PRN Reason: Nasal congestion Last Admin: 10/03/17 17:18 Dose: 2 spr Sodium Phosphate (Fleet Enema) 135 ml [place] DAILY PRN PRN Reason: Constipation Last Admin: 10/01/17 22:23 Dose: 135 ml Sucralfate (Carafate Oral Susp) 1 gm PO QID [facility] Last Admin: 10/04/17 12:07 Dose: 1 gm Topiramate (Topamax) 50 mg PO Q12 [facility] Last Admin: 10/04/17 08:39 Dose: 50 mg
--- NOTE | 2017-10-04 20:46 | CP.PCM.PN ---
Subjective - Date & Time of Evaluation Date of Evaluation: 10/04/17 Time of Evaluation: 18:40 - Subjective Subjective: No complaints, tolerated rehab well. Objective - Vital Signs/Intake and Output Vital Signs (last 24 hours): Temp Pulse Resp BP Pulse Ox 97.5 F L 64 20 140/82 97 10/04/17 08:14 10/04/17 08:38 10/04/17 08:14 10/04/17 08:38 10/04/17 08:14 - Medications Medications: Current Medications Acetaminophen (Tylenol 325mg Tab) 650 mg PO Q4 PRN PRN Reason: Pain Scale 4-10. Atorvastatin Calcium (Lipitor) 20 mg PO HS [facility] Last Admin: 10/03/17 21:11 Dose: 20 mg Chlorpromazine (Thorazine) 25 mg PO Q6 PRN PRN Reason: Hiccups Last Admin: 10/03/17 21:11 Dose: 25 mg Clopidogrel Bisulfate (Plavix) 75 mg PO DAILY [facility] Last Admin: 10/04/17 08:39 Dose: 75 mg Dabigatran (Pradaxa) 150 mg PO BID [facility] PRN Reason: Protocol Last Admin: 10/04/17 17:11 Dose: 150 mg Dexamethasone (Decadron) 4 mg PO Q12 [facility] Last Admin: 10/04/17 08:36 Dose: 4 mg Docusate Sodium (Colace) 100 mg PO BID [facility] Last Admin: 10/04/17 17:12 Dose: 100 mg Famotidine (Pepcid) 20 mg PO Q12 [facility] Last Admin: 10/04/17 08:39 Dose: 20 mg Lactulose (Enulose) 20 gm PO DAILY PRN PRN Reason: Constipation Last Admin: 10/01/17 21:19 Dose: 20 gm Meclizine HCl (Antivert) 25 mg PO TID [facility] Last Admin: 10/04/17 17:11 Dose: 25 mg Metoclopramide HCl (Reglan) 10 mg IVP Q6 PRN PRN Reason: Nausea/Vomiting Metoprolol Tartrate (Lopressor) 12.5 mg PO Q12 [facility] Last Admin: 10/04/17 08:38 Dose: 12.5 mg Sodium Chloride ([place] Nasal [place]) 2 sprays PRABHAKAR Q4 PRN PRN Reason: Nasal congestion Last Admin: 10/03/17 17:18 Dose: 2 spr Sodium Phosphate (Fleet Enema) 135 ml [place] DAILY PRN PRN Reason: Constipation Last Admin: 10/01/17 22:23 Dose: 135 ml Sucralfate (Carafate Oral Susp) 1 gm PO QID [facility] Last Admin: 10/04/17 17:11 Dose: 1 gm Topiramate (Topamax) 50 mg PO Q12 [facility] Last Admin: 10/04/17 08:39 Dose: 50 mg - Head Exam Head Exam: ATRAUMATIC - Eye Exam Eye Exam: Normal appearance - ENT Exam ENT Exam: Mucous Membranes Dry - Respiratory Exam Respiratory Exam: NORMAL BREATHING PATTERN - Cardiovascular Exam Cardiovascular Exam: +S1, +S2 - GI/Abdominal Exam GI & Abdominal Exam: Normal Bowel Sounds Assessment and Plan (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
[2017-10-05 06:43] LABS: HEMOGLOBIN 10.1 g/dL (12.0-16.0); MEAN CELL VOLUME 71.6 fl (81.0-99.0); MEAN CORPUSCULAR HEMOGLOBIN 22.5 pg (27.0-31.0); MEAN CORPUSCULAR HGB CONC 31.5 g/dL (33.0-37.0); RBC 4.48 Mil/uL (3.80-5.20); RED CELL DISTRIBUTION WIDTH 22.3 % (11.5-14.5); WHITE BLOOD COUNT 24.1 K/uL (4.8-10.8)
[2017-10-05 06:48] LABS: ALBUMIN 3.8 g/dL (3.5-5.0); ALT/SGPT 21 U/L (9-52); AST/SGOT 22 U/L (14-36); BLOOD UREA NITROGEN 17 mg/dl (7-17); CALCIUM 9.5 mg/dL (8.4-10.2); GFR AFRICAN-AMERICAN > 60; GFR NON-AFRICAN AMERICAN > 60
[2017-10-05] MEDS: Sucralfate 1 gm/10 ml Oral Susp UD PO SCH ×4 (08:33→21:09)
--- NOTE | 2017-10-05 12:03 | CP.PCM.PN ---
Subjective - Date & Time of Evaluation Date of Evaluation: 10/05/17 Time of Evaluation: 12:01 - Subjective Subjective: Ms. Kleber Sheldon was seen and examined at the bedside. She is alert, oriented in all spheres. She denies any headache, dizziness, diplopia,. She is able to raise her left arm above her head. She further claims of feeling better with each therapy session. However, she feels sad with the result of her CT of the chest result which was relayed to her by surgical team. Explained to the patient that with any kind of thrombus being treated with medicines, it will take time before any thrombus will be completely resolved. She verbalizes understanding. There was no untoward events overnight. Objective - Vital Signs/Intake and Output Vital Signs (last 24 hours): Temp Pulse Resp BP Pulse Ox 97.9 F 80 20 147/90 100 10/05/17 07:43 10/05/17 08:34 10/05/17 07:43 10/05/17 08:34 10/05/17 07:43 - Medications Medications: Current Medications Acetaminophen (Tylenol 325mg Tab) 650 mg PO Q4 PRN PRN Reason: Pain Scale 4-10. Atorvastatin Calcium (Lipitor) 20 mg PO HS [facility] Last Admin: 10/04/17 21:36 Dose: 20 mg Chlorpromazine (Thorazine) 25 mg PO Q6 PRN PRN Reason: Hiccups Last Admin: 10/03/17 21:11 Dose: 25 mg Clopidogrel Bisulfate (Plavix) 75 mg PO DAILY [facility] Last Admin: 10/05/17 08:35 Dose: 75 mg Dabigatran (Pradaxa) 150 mg PO BID [facility] PRN Reason: Protocol Last Admin: 10/05/17 08:35 Dose: 150 mg Dexamethasone (Decadron) 4 mg PO Q12 [facility] Last Admin: 10/05/17 08:34 Dose: 4 mg Docusate Sodium (Colace) 100 mg PO BID [facility] Last Admin: 10/05/17 08:33 Dose: 100 mg Famotidine (Pepcid) 20 mg PO Q12 [facility] Last Admin: 10/05/17 08:35 Dose: 20 mg Lactulose (Enulose) 20 gm PO DAILY PRN PRN Reason: Constipation Last Admin: 10/01/17 21:19 Dose: 20 gm Meclizine HCl (Antivert) 25 mg PO TID [facility] Last Admin: 10/05/17 08:33 Dose: 25 mg Metoclopramide HCl (Reglan) 10 mg IVP Q6 PRN PRN Reason: Nausea/Vomiting Metoprolol Tartrate (Lopressor) 12.5 mg PO Q12 [facility] Last Admin: 10/05/17 08:34 Dose: 12.5 mg Sodium Chloride ([place] Nasal [place]) 2 sprays PRABHAKAR Q4 PRN PRN Reason: Nasal congestion Last Admin: 10/03/17 17:18 Dose: 2 spr Sodium Phosphate (Fleet Enema) 135 ml [place] DAILY PRN PRN Reason: Constipation Last Admin: 10/01/17 22:23 Dose: 135 ml Sucralfate (Carafate Oral Susp) 1 gm PO QID [facility] Last Admin: 10/05/17 08:33 Dose: 1 gm Topiramate (Topamax) 50 mg PO Q12 [facility] Last Admin: 10/05/17 08:36 Dose: 50 mg - Labs Labs: 10/05/17 05:20 10/05/17 05:20 - Constitutional Appears: No Acute Distress - Head Exam Head Exam: NORMAL INSPECTION - Neurological Exam Neurological Exam: Alert, Awake, Oriented x3 Neuro motor strength exam: Left Upper Extremity: 4, Right Upper Extremity: 5, Left Lower Extremity: 5, Right Lower Extremity: 5 Additional comments: Neurological improved from previous examination, she is able to raise her left upper extremity higher than her head. Assessment and Plan (1) CVA (cerebral vascular accident) Assessment & Plan: Case discussed with Dr. Gatica, continue all current medical, physical, occupational therapies. Recommend blood pressure control. Status: Acute
--- NOTE | 2017-10-05 12:08 | CP.PCM.PN ---
Subjective - Date & Time of Evaluation Date of Evaluation: 10/05/17 Time of Evaluation: 12:00 - Subjective Subjective: F/U Acute CVA Objective - Vital Signs/Intake and Output Vital Signs (last 24 hours): Temp Pulse Resp BP Pulse Ox 97.9 F 80 20 147/90 100 10/05/17 07:43 10/05/17 08:34 10/05/17 07:43 10/05/17 08:34 10/05/17 07:43 - Medications Medications: Current Medications Acetaminophen (Tylenol 325mg Tab) 650 mg PO Q4 PRN PRN Reason: Pain Scale 4-10. Atorvastatin Calcium (Lipitor) 20 mg PO HS [facility] Last Admin: 10/04/17 21:36 Dose: 20 mg Chlorpromazine (Thorazine) 25 mg PO Q6 PRN PRN Reason: Hiccups Last Admin: 10/03/17 21:11 Dose: 25 mg Clopidogrel Bisulfate (Plavix) 75 mg PO DAILY [facility] Last Admin: 10/05/17 08:35 Dose: 75 mg Dabigatran (Pradaxa) 150 mg PO BID [facility] PRN Reason: Protocol Last Admin: 10/05/17 08:35 Dose: 150 mg Dexamethasone (Decadron) 4 mg PO Q12 [facility] Last Admin: 10/05/17 08:34 Dose: 4 mg Docusate Sodium (Colace) 100 mg PO BID [facility] Last Admin: 10/05/17 08:33 Dose: 100 mg Famotidine (Pepcid) 20 mg PO Q12 [facility] Last Admin: 10/05/17 08:35 Dose: 20 mg Lactulose (Enulose) 20 gm PO DAILY PRN PRN Reason: Constipation Last Admin: 10/01/17 21:19 Dose: 20 gm Meclizine HCl (Antivert) 25 mg PO TID [facility] Last Admin: 10/05/17 08:33 Dose: 25 mg Metoclopramide HCl (Reglan) 10 mg IVP Q6 PRN PRN Reason: Nausea/Vomiting Metoprolol Tartrate (Lopressor) 12.5 mg PO Q12 [facility] Last Admin: 10/05/17 08:34 Dose: 12.5 mg Sodium Chloride ([place] Nasal [place]) 2 sprays PRABHAKAR Q4 PRN PRN Reason: Nasal congestion Last Admin: 10/03/17 17:18 Dose: 2 spr Sodium Phosphate (Fleet Enema) 135 ml [place] DAILY PRN PRN Reason: Constipation Last Admin: 10/01/17 22:23 Dose: 135 ml Sucralfate (Carafate Oral Susp) 1 gm PO QID [facility] Last Admin: 10/05/17 08:33 Dose: 1 gm Topiramate (Topamax) 50 mg PO Q12 [facility] Last Admin: 10/05/17 08:36 Dose: 50 mg - Labs Labs: 10/05/17 05:20 10/05/17 05:20 - Constitutional Appears: No Acute Distress - Head Exam Head Exam: NORMAL INSPECTION - Eye Exam Eye Exam: PERRL - ENT Exam ENT Exam: Normal Exam - Neck Exam Neck Exam: Normal Inspection - Respiratory Exam Respiratory Exam: Clear to Ausculation Bilateral - Cardiovascular Exam Cardiovascular Exam: REGULAR RHYTHM - GI/Abdominal Exam GI & Abdominal Exam: Soft, Normal Bowel Sounds - Extremities Exam Extremities Exam: Tenderness (minimal L arm, able to lift in aduction the L upper extremity above the shoulder level.) Additional comments: Tenderness LUE - Neurological Exam Neurological Exam: Alert, Oriented x3 Additional comments: Decreased ROM LUE - Skin Skin Exam: Warm Assessment and Plan (1) Acute CVA (cerebrovascular accident) Status: Acute (2) New infarction of cerebellum Status: Acute (3) Vertebral artery occlusion Status: Acute (4) Parietal lobe infarction Status: Acute (5) Subclavian artery thrombosis Status: Acute (6) Anemia Status: Chronic
--- NOTE | 2017-10-05 17:40 | CP.PCM.PN ---
Subjective - Date & Time of Evaluation Date of Evaluation: 10/05/17 Time of Evaluation: 17:39 - Subjective Subjective: Patient seen in the room with present denies sob/cp working hard in therapies feels particularly happy with the upper extremity improvement. still with balance/gait issues Objective - Vital Signs/Intake and Output Vital Signs (last 24 hours): Temp Pulse Resp BP Pulse Ox 97.9 F 80 20 147/90 99 10/05/17 07:43 10/05/17 14:23 10/05/17 07:43 10/05/17 08:34 10/05/17 14:23 - Medications Medications: Current Medications Acetaminophen (Tylenol 325mg Tab) 650 mg PO Q4 PRN PRN Reason: Pain Scale 4-10. Atorvastatin Calcium (Lipitor) 20 mg PO HS [facility] Last Admin: 10/04/17 21:36 Dose: 20 mg Chlorpromazine (Thorazine) 25 mg PO Q6 PRN PRN Reason: Hiccups Last Admin: 10/03/17 21:11 Dose: 25 mg Clopidogrel Bisulfate (Plavix) 75 mg PO DAILY [facility] Last Admin: 10/05/17 08:35 Dose: 75 mg Dabigatran (Pradaxa) 150 mg PO BID [facility] PRN Reason: Protocol Last Admin: 10/05/17 08:35 Dose: 150 mg Dexamethasone (Decadron) 4 mg PO Q12 [facility] Last Admin: 10/05/17 08:34 Dose: 4 mg Docusate Sodium (Colace) 100 mg PO BID [facility] Last Admin: 10/05/17 08:33 Dose: 100 mg Famotidine (Pepcid) 20 mg PO Q12 [facility] Last Admin: 10/05/17 08:35 Dose: 20 mg Lactulose (Enulose) 20 gm PO DAILY PRN PRN Reason: Constipation Last Admin: 10/01/17 21:19 Dose: 20 gm Meclizine HCl (Antivert) 25 mg PO TID [facility] Last Admin: 10/05/17 12:33 Dose: 25 mg Metoclopramide HCl (Reglan) 10 mg IVP Q6 PRN PRN Reason: Nausea/Vomiting Metoprolol Tartrate (Lopressor) 12.5 mg PO Q12 [facility] Last Admin: 10/05/17 08:34 Dose: 12.5 mg Sodium Chloride ([place] Nasal [place]) 2 sprays PRABHAKAR Q4 PRN PRN Reason: Nasal congestion Last Admin: 10/03/17 17:18 Dose: 2 spr Sodium Phosphate (Fleet Enema) 135 ml [place] DAILY PRN PRN Reason: Constipation Last Admin: 10/01/17 22:23 Dose: 135 ml Sucralfate (Carafate Oral Susp) 1 gm PO QID [facility] Last Admin: 10/05/17 12:33 Dose: 1 gm Topiramate (Topamax) 50 mg PO Q12 [facility] Last Admin: 10/05/17 08:36 Dose: 50 mg - Labs Labs: 10/05/17 05:20 10/05/17 05:20
[2017-10-06] MEDS: Sucralfate 1 gm/10 ml Oral Susp UD PO SCH ×4 (08:03→21:33)
[2017-10-06] MEDS: Nasal Spray(Ocean spray) NAS PRN (08:14)
[2017-10-07 07:08] LABS: BASO # 0.1 K/uL (0.0-0.2); BASO % 0.2 % (0.0-2.0); HEMOGLOBIN 10.3 g/dL (12.0-16.0); LYMPH # 1.4 K/uL (1.0-4.3); LYMPH % 4.4 % (20.0-40.0); MEAN CELL VOLUME 72.2 fl (81.0-99.0); MEAN CORPUSCULAR HEMOGLOBIN 22.7 pg (27.0-31.0); MEAN CORPUSCULAR HGB CONC 31.5 g/dL (33.0-37.0); MEAN PLATELET VOLUME 7.8 fl (7.2-11.7); MONO # 1.1 K/uL (0.0-0.8); MONO % 3.4 % (0.0-10.0); NEUT # 29.3 K/uL (1.8-7.0); PLATELET COUNT 691 K/uL (130-400); RBC 4.54 Mil/uL (3.80-5.20); RED CELL DISTRIBUTION WIDTH 22.2 % (11.5-14.5); WHITE BLOOD COUNT 31.8 K/uL (4.8-10.8)
[2017-10-07 07:13] LABS: ALBUMIN 3.8 g/dL (3.5-5.0); ALT/SGPT 25 U/L (9-52); AST/SGOT 21 U/L (14-36); BLOOD UREA NITROGEN 17 mg/dl (7-17); CALCIUM 9.6 mg/dL (8.4-10.2); GFR AFRICAN-AMERICAN > 60; GFR NON-AFRICAN AMERICAN > 60
[2017-10-07] MEDS: Sucralfate 1 gm/10 ml Oral Susp UD PO SCH ×4 (09:07→21:46)
[2017-10-07 10:15] LABS: LYMPHOCYTE 2 % (20-50); MONOCYTE 2 % (0-10); NEUTROPHIL 94 % (42-75); REACTIVE LYMPHOCYTES 2 % (0-0); TOTAL CELLS COUNTED 100
[2017-10-07 10:18] LABS: ANISOCYTOSIS MODERATE; POIKILOCYTOSIS MODERATE
[2017-10-07 10:19] LABS: HYPOCHROMIC MODERATE; MICROCYTOSIS SLIGHT; OVALOCYTES SLIGHT; TARGET CELLS SLIGHT
[2017-10-07 10:20] LABS: STOMATOCYTES SLIGHT; TEARDROP CELLS SLIGHT
[2017-10-07 10:21] LABS: POLYCHROMIC SLIGHT; SCHISTOCYTES SLIGHT
[2017-10-07 10:22] LABS: LARGE PLATELETS PRESENT
[2017-10-07 10:23] LABS: PLATELET ESTIMATE MARKEDLY INCREASED (NORMAL)
--- NOTE | 2017-10-07 10:28 | CP.PCM.PN ---
Subjective - Date & Time of Evaluation Date of Evaluation: 10/07/17 Time of Evaluation: 10:26 - Subjective Subjective: Ms. Kleber Sheldon was seen and examined at the bedside. She is alert, oriented in all spheres. She denies any headache, dizziness, diplopia,. She is able to raise her left arm above her head. She further claims of feeling better with each therapy session. She complains of blurred vision of the left eye which occured intermittent.There was no untoward events overnight. Objective - Vital Signs/Intake and Output Vital Signs (last 24 hours): Temp Pulse Resp BP Pulse Ox 97.1 F L 76 20 139/83 99 10/07/17 07:54 10/07/17 09:08 10/07/17 07:54 10/07/17 09:08 10/07/17 07:54 - Medications Medications: Current Medications Acetaminophen (Tylenol 325mg Tab) 650 mg PO Q4 PRN PRN Reason: Pain Scale 4-10. Atorvastatin Calcium (Lipitor) 20 mg PO HS COUNTS INCLUDE 234 BEDS AT THE [facility] Last Admin: 10/06/17 21:33 Dose: 20 mg Chlorpromazine (Thorazine) 25 mg PO Q6 PRN PRN Reason: Hiccups Last Admin: 10/03/17 21:11 Dose: 25 mg Clopidogrel Bisulfate (Plavix) 75 mg PO DAILY COUNTS INCLUDE 234 BEDS AT THE [facility] Last Admin: 10/07/17 09:09 Dose: 75 mg Dabigatran (Pradaxa) 150 mg PO BID COUNTS INCLUDE 234 BEDS AT THE [facility] PRN Reason: Protocol Last Admin: 10/07/17 09:09 Dose: 150 mg Dexamethasone (Decadron) 2 mg PO Q12 COUNTS INCLUDE 234 BEDS AT THE [facility] Last Admin: 10/07/17 09:15 Dose: 2 mg Docusate Sodium (Colace) 100 mg PO BID COUNTS INCLUDE 234 BEDS AT THE [facility] Last Admin: 10/07/17 09:07 Dose: 100 mg Famotidine (Pepcid) 20 mg PO Q12 COUNTS INCLUDE 234 BEDS AT THE [facility] Last Admin: 10/07/17 09:09 Dose: 20 mg Lactulose (Enulose) 20 gm PO DAILY PRN PRN Reason: Constipation Last Admin: 10/01/17 21:19 Dose: 20 gm Meclizine HCl (Antivert) 25 mg PO TID COUNTS INCLUDE 234 BEDS AT THE [facility] Last Admin: 10/07/17 09:06 Dose: 25 mg Metoclopramide HCl (Reglan) 10 mg IVP Q6 PRN PRN Reason: Nausea/Vomiting Metoprolol Tartrate (Lopressor) 12.5 mg PO Q12 COUNTS INCLUDE 234 BEDS AT THE [facility] Last Admin: 10/07/17 09:08 Dose: 12.5 mg Sodium Chloride ([place] Nasal [place]) 2 sprays PRABHAKAR Q4 PRN PRN Reason: Nasal congestion Last Admin: 10/06/17 08:14 Dose: 1 spr Sodium Phosphate (Fleet Enema) 135 ml [place] DAILY PRN PRN Reason: Constipation Last Admin: 10/01/17 22:23 Dose: 135 ml Sucralfate (Carafate Oral Susp) 1 gm PO QID COUNTS INCLUDE 234 BEDS AT THE [facility] Last Admin: 10/07/17 09:07 Dose: 1 gm Topiramate (Topamax) 50 mg PO Q12 COUNTS INCLUDE 234 BEDS AT THE [facility] Last Admin: 10/07/17 09:09 Dose: 50 mg - Labs Labs: 10/07/17 05:25 10/07/17 05:25 - Constitutional Appears: No Acute Distress - Head Exam Head Exam: NORMAL INSPECTION - Neurological Exam Neurological Exam: Alert, Oriented x3 Neuro motor strength exam: Left Upper Extremity: 3, Right Upper Extremity: 5, Left Lower Extremity: 5, Right Lower Extremity: 5 Additional comments: neurological unchanged from previous examination. Assessment and Plan (1) CVA (cerebral vascular accident) Assessment & Plan: Case discussed with Dr. Gatica, continue all current medical, physical, and occupational therapies. Recommend to decrease dexamethasone from 4 mg to 2 mg PO q [address] scan of the head in am. Status: Acute
[2017-10-07 19:24] LABS: SQUAMOUS EPITHIAL 2 /hpf (0-5); URINE BACTERIA FEW (<OCC); URINE BILIRUBIN NEGATIVE (NEGATIVE); URINE BLOOD MODERATE (NEGATIVE); URINE CLARITY TURBID (Clear); URINE COLOR YELLOW (YELLOW); URINE GLUCOSE (UA) NEG (Normal); URINE LEUKOCYTE ESTERASE TRACE Leu/uL (Negative); URINE PROTEIN 30 mg/dL (NEGATIVE); WBC CLUMPS MANY /hpf
--- NOTE | 2017-10-07 19:51 | CP.PCM.PN ---
Subjective - Date & Time of Evaluation Date of Evaluation: 10/07/17 Time of Evaluation: 13:00 - Subjective Subjective: F/U Acute CVA feels tired , sleepy , no pain LUE , blurred vision L eye Objective - Vital Signs/Intake and Output Vital Signs (last 24 hours): Temp Pulse Resp BP Pulse Ox 97.1 F L 76 20 139/83 99 10/07/17 07:54 10/07/17 09:08 10/07/17 07:54 10/07/17 09:08 10/07/17 07:54 - Medications Medications: Current Medications Acetaminophen (Tylenol 325mg Tab) 650 mg PO Q4 PRN PRN Reason: Pain Scale 4-10. Atorvastatin Calcium (Lipitor) [address] [facility] Last Admin: 10/06/17 21:33 Dose: 20 mg Chlorpromazine (Thorazine) 25 mg PO Q6 PRN PRN Reason: Hiccups Last Admin: 10/03/17 21:11 Dose: 25 mg Clopidogrel Bisulfate (Plavix) [address] [facility] Last Admin: 10/07/17 09:09 Dose: 75 mg Dabigatran (Pradaxa) [address] [facility] PRN Reason: Protocol Last Admin: 10/07/17 17:00 Dose: 150 mg Dexamethasone (Decadron) [address] [facility] Last Admin: 10/07/17 09:15 Dose: 2 mg Docusate Sodium (Colace) [address] [facility] Last Admin: 10/07/17 16:59 Dose: 100 mg Famotidine (Pepcid) [address] [facility] Last Admin: 10/07/17 09:09 Dose: 20 mg Lactulose (Enulose) 20 gm PO DAILY PRN PRN Reason: Constipation Last Admin: 10/01/17 21:19 Dose: 20 gm Meclizine HCl (Antivert) [address] [facility] Last Admin: 10/07/17 16:59 Dose: 25 mg Metoclopramide HCl (Reglan) 10 mg IVP Q6 PRN PRN Reason: Nausea/Vomiting Metoprolol Tartrate (Lopressor) 12.[address] [facility] Last Admin: 10/07/17 09:08 Dose: 12.5 mg Sodium Chloride ([place] Nasal [place]) 2 sprays PRABHAKAR Q4 PRN PRN Reason: Nasal congestion Last Admin: 10/06/17 08:14 Dose: 1 spr Sodium Phosphate (Fleet Enema) 135 ml [place] DAILY PRN PRN Reason: Constipation Last Admin: 10/01/17 22:23 Dose: 135 ml Sucralfate (Carafate Oral Susp) [address] [facility] Last Admin: 10/07/17 17:00 Dose: 1 gm Topiramate (Topamax) [address] [facility] Last Admin: 10/07/17 09:09 Dose: 50 mg - Labs Labs: 10/07/17 05:25 10/07/17 05:25 - Constitutional Appears: Chronically Ill - Head Exam Head Exam: NORMAL INSPECTION - Eye Exam Eye Exam: PERRL - ENT Exam ENT Exam: Normal Exam - Neck Exam Neck Exam: Normal Inspection - Respiratory Exam Respiratory Exam: Clear to Ausculation Bilateral - Cardiovascular Exam Cardiovascular Exam: REGULAR RHYTHM - GI/Abdominal Exam GI & Abdominal Exam: Soft, Normal Bowel Sounds - Extremities Exam Extremities Exam: Normal Inspection - Back Exam Back Exam: NORMAL INSPECTION - Neurological Exam Neurological Exam: Alert, Oriented x3 Additional comments: weakness LUE > LLE - Psychiatric Exam Psychiatric exam: Anxious - Skin Skin Exam: Warm Assessment and Plan (1) Acute CVA (cerebrovascular accident) Status: Acute (2) New infarction of cerebellum Status: Acute (3) Vertebral artery occlusion Status: Acute (4) Parietal lobe infarction Status: Acute (5) Subclavian artery thrombosis Status: Acute (6) Anemia Status: Chronic - Assessment and Plan (Free Text) Plan: wbc increased 31.8, Steroid decreased by Neurologist , f/u CT Head , continue rest of trearment
[2017-10-08 06:38] LABS: ALBUMIN 3.6 g/dL (3.5-5.0); ALT/SGPT 28 U/L (9-52); AST/SGOT 18 U/L (14-36); BLOOD UREA NITROGEN 14 mg/dl (7-17); CALCIUM 9.4 mg/dL (8.4-10.2); GFR AFRICAN-AMERICAN > 60; GFR NON-AFRICAN AMERICAN > 60
[2017-10-08 06:44] LABS: HEMOGLOBIN 10.3 g/dL (12.0-16.0); MEAN CELL VOLUME 71.6 fl (81.0-99.0); MEAN CORPUSCULAR HGB CONC 32.1 g/dL (33.0-37.0); RBC 4.48 Mil/uL (3.80-5.20); RED CELL DISTRIBUTION WIDTH 22.5 % (11.5-14.5); WHITE BLOOD COUNT 28.3 K/uL (4.8-10.8)
[2017-10-08] MEDS: Sucralfate 1 gm/10 ml Oral Susp UD PO SCH ×4 (08:08→21:23)
--- NOTE | 2017-10-08 09:49 | CT ---
PROCEDURE: CT HEAD WITHOUT CONTRAST. HISTORY: follow of CVA COMPARISON: Unenhanced head CT 10/01/2017. TECHNIQUE: Axial computed tomography images were obtained through the head/brain without intravenous contrast. Radiation dose: Total exam DLP = 818.50 mGy-cm. This CT exam was performed using one or more of the following dose reduction techniques: Automated exposure control, adjustment of the mA and/or kV according to patient size, and/or use of iterative reconstruction technique. FINDINGS: HEMORRHAGE: No intracranial hemorrhage. BRAIN: Trace lucency suggests the medial inferior left cerebellum with no significant mass effect. Remaining brain parenchyma above below the tentorium including the brainstem is unremarkable. No suspicious extra-axial collection. VENTRICLES: Unremarkable. No hydrocephalus. CALVARIUM: Unremarkable. PARANASAL SINUSES: Unremarkable as visualized. No significant inflammatory changes. MASTOID AIR CELLS: Unremarkable as visualized. No inflammatory changes. OTHER FINDINGS: None. IMPRESSION: Trace residual edema medial left cerebellum inferiorly, representing early chronic infarction. Clinically correlate. Remainder of the brain is unremarkable.
--- NOTE | 2017-10-08 11:00 | CP.PCM.PN ---
Subjective - Date & Time of Evaluation Date of Evaluation: 10/08/17 Time of Evaluation: 10:59 - Subjective Subjective: Ms. Kleber Sheldon was seen and examined at the bedside. She is alert, oriented in all spheres. She denies any headache, dizziness, diplopia,. She is able to raise her left arm above her head. She further claims of feeling better with each therapy session. She complains of blurred vision of the left eye which occurred intermittent. CT scan of the head showed trace residual edema medial left cerebellum inferiorly representing early chronic infarction. Clinically correlate. Remainder of the brain is unremarkable.There was no untoward events overnight. Objective - Vital Signs/Intake and Output Vital Signs (last 24 hours): Temp Pulse Resp BP Pulse Ox 98.4 F 84 20 124/75 97 10/08/17 07:42 10/08/17 08:11 10/08/17 07:42 10/08/17 08:11 10/08/17 07:42 - Medications Medications: Current Medications Acetaminophen (Tylenol 325mg Tab) 650 mg PO Q4 PRN PRN Reason: Pain Scale 4-10. Atorvastatin Calcium (Lipitor) 20 mg PO HS [facility] Last Admin: 10/07/17 21:46 Dose: 20 mg Chlorpromazine (Thorazine) 25 mg PO Q6 PRN PRN Reason: Hiccups Last Admin: 10/03/17 21:11 Dose: 25 mg Clopidogrel Bisulfate (Plavix) 75 mg PO DAILY [facility] Last Admin: 10/08/17 08:11 Dose: 75 mg Dabigatran (Pradaxa) 150 mg PO BID [facility] PRN Reason: Protocol Last Admin: 10/08/17 08:10 Dose: 150 mg Dexamethasone (Decadron) 2 mg PO Q12 [facility] Last Admin: 10/08/17 08:10 Dose: 2 mg Docusate Sodium (Colace) 100 mg PO BID [facility] Last Admin: 10/08/17 08:09 Dose: 100 mg Famotidine (Pepcid) 20 mg PO Q12 [facility] Last Admin: 10/08/17 08:11 Dose: 20 mg Lactulose (Enulose) 20 gm PO DAILY PRN PRN Reason: Constipation Last Admin: 10/01/17 21:19 Dose: 20 gm Meclizine HCl (Antivert) 25 mg PO TID [facility] Last Admin: 10/08/17 08:09 Dose: 25 mg Metoclopramide HCl (Reglan) 10 mg IVP Q6 PRN PRN Reason: Nausea/Vomiting Metoprolol Tartrate (Lopressor) 12.5 mg PO Q12 [facility] Last Admin: 10/08/17 08:11 Dose: Not Given Sodium Chloride ([place] Nasal [place]) 2 sprays PRABHAKAR Q4 PRN PRN Reason: Nasal congestion Last Admin: 10/06/17 08:14 Dose: 1 spr Sodium Phosphate (Fleet Enema) 135 ml [place] DAILY PRN PRN Reason: Constipation Last Admin: 10/01/17 22:23 Dose: 135 ml Sucralfate (Carafate Oral Susp) 1 gm PO QID [facility] Last Admin: 10/08/17 08:08 Dose: 1 gm Topiramate (Topamax) 50 mg PO Q12 [facility] Last Admin: 10/08/17 08:11 Dose: 50 mg - Labs Labs: 10/08/17 07:01 10/08/17 05:25 - Constitutional Appears: No Acute Distress - Head Exam Head Exam: NORMAL INSPECTION - Neurological Exam Neurological Exam: Alert, Awake, Oriented x3 Neuro motor strength exam: Left Upper Extremity: 4, Right Upper Extremity: 5, Left Lower Extremity: 5, Right Lower Extremity: 5 Additional comments: She is alert, oriented, blurred vision. Sensation remains intact. Assessment and Plan (1) CVA (cerebral vascular accident) Assessment & Plan: Case discussed with Dr. Gatica, continue all current medical, physical, occupational therapies. Recommend opthalmology consult for her left eye blurred vision. Status: Acute (2) Leukocytosis Assessment & Plan: Case discussed with Dr. Gatica, pending all results from septic work up. Status: Acute
--- NOTE | 2017-10-08 18:13 | CP.PCM.PN ---
Subjective - Date & Time of Evaluation Date of Evaluation: 10/08/17 Time of Evaluation: 13:20 - Subjective Subjective: F/U Acute CVA Pt c/o of blurred vision L eye, and numbness L face, no c/o of pain in LUE, is able to walk with a walker and PT. Objective - Vital Signs/Intake and Output Vital Signs (last 24 hours): Temp Pulse Resp BP Pulse Ox 98.4 F 84 98 H 124/75 99 10/08/17 07:42 10/08/17 08:11 10/08/17 14:30 10/08/17 08:11 10/08/17 14:30 - Medications Medications: Current Medications Acetaminophen (Tylenol 325mg Tab) 650 mg PO Q4 PRN PRN Reason: Pain Scale 4-10. Atorvastatin Calcium (Lipitor) 20 mg PO HS [facility] Last Admin: 10/07/17 21:46 Dose: 20 mg Chlorpromazine (Thorazine) 25 mg PO Q6 PRN PRN Reason: Hiccups Last Admin: 10/03/17 21:11 Dose: 25 mg Clopidogrel Bisulfate (Plavix) 75 mg PO DAILY [facility] Last Admin: 10/08/17 08:11 Dose: 75 mg Dabigatran (Pradaxa) 150 mg PO BID [facility] PRN Reason: Protocol Last Admin: 10/08/17 16:51 Dose: 150 mg Dexamethasone (Decadron) 2 mg PO Q12 [facility] Last Admin: 10/08/17 08:10 Dose: 2 mg Docusate Sodium (Colace) 100 mg PO BID [facility] Last Admin: 10/08/17 16:51 Dose: 100 mg Famotidine (Pepcid) 20 mg PO Q12 [facility] Last Admin: 10/08/17 08:11 Dose: 20 mg Fluconazole (Diflucan) 100 mg PO DAILY [facility] PRN Reason: Protocol Stop: 10/18/17 12:01 Last Admin: 10/08/17 12:48 Dose: 100 mg Lactulose (Enulose) 20 gm PO DAILY PRN PRN Reason: Constipation Last Admin: 10/01/17 21:19 Dose: 20 gm Meclizine HCl (Antivert) 25 mg PO TID [facility] Last Admin: 10/08/17 16:51 Dose: 25 mg Metoclopramide HCl (Reglan) 10 mg IVP Q6 PRN PRN Reason: Nausea/Vomiting Metoprolol Tartrate (Lopressor) 12.5 mg PO Q12 [facility] Last Admin: 10/08/17 08:11 Dose: Not Given Sodium Chloride ([place] Nasal [place]) 2 sprays PRABHAKAR Q4 PRN PRN Reason: Nasal congestion Last Admin: 10/06/17 08:14 Dose: 1 spr Sodium Phosphate (Fleet Enema) 135 ml [place] DAILY PRN PRN Reason: Constipation Last Admin: 10/01/17 22:23 Dose: 135 ml Sucralfate (Carafate Oral Susp) 1 gm PO QID [facility] Last Admin: 10/08/17 16:51 Dose: 1 gm Topiramate (Topamax) 50 mg PO Q12 [facility] Last Admin: 10/08/17 08:11 Dose: 50 mg - Labs Labs: 10/08/17 07:01 10/08/17 05:25 - Constitutional Appears: No Acute Distress - Head Exam Head Exam: NORMAL INSPECTION - Eye Exam Eye Exam: PERRL Additional comments: Blurred vision L eye - ENT Exam ENT Exam: Normal Exam - Neck Exam Neck Exam: Normal Inspection - Respiratory Exam Respiratory Exam: Clear to Ausculation Bilateral - Cardiovascular Exam Cardiovascular Exam: REGULAR RHYTHM - GI/Abdominal Exam GI & Abdominal Exam: Soft, Normal Bowel Sounds - Extremities Exam Extremities Exam: Tenderness (LUE, minimal tenderness L arm, able to lift in aduction the LUE above the shoulder level. ) - Neurological Exam Neurological Exam: Alert, Oriented x3 Additional comments: Decreased ROM LUE Assessment and Plan (1) Acute CVA (cerebrovascular accident) Status: Acute (2) New infarction of cerebellum Status: Acute (3) Vertebral artery occlusion Status: Acute (4) Parietal lobe infarction Status: Acute (5) Subclavian artery thrombosis Status: Acute (6) Anemia Status: Chronic - Assessment and Plan (Free Text) Plan: WBC decreased to 28.3, Steroids decreased, Urine C-S yeast bacteria,awaiting final C-S, CT Head: CVA improved, apparently less edema. continue with Diflucan and current Tx. f/u ID consult today.
[2017-10-09] MEDS: Sucralfate 1 gm/10 ml Oral Susp UD PO SCH ×4 (08:14→22:03)
--- NOTE | 2017-10-09 13:08 | PSY.TMCNF ---
Nursing - Vital Signs Vital Signs (Last 8 hours): Vital Signs 10/09/17 10/09/17 08:15 09:33 Temperature 97.1 F L Pulse Rate 78 78 Respiratory 20 Rate Blood Pressure 122/78 122/78 O2 Sat by Pulse 98 Oximetry Pain: 0 - Precautions: Precautions: Fall Prevention, Aspiration - Medications/Other Issues Comment: Pt at moderate nutritional risk. Pt to consume at least 75% meals without GI upset or issues chewing x 5-7 days. Pt weight to remain stable within 2-3# x 5-7 days. Follow-up due on 10/09/2017 - Consults Comment: Dr Miller,DR Gatica,Dr Brandee Piper - Toileting Toileting: Moderate Assistance - Bladder Management Bladder Pattern: Normal - Bowel Management Bowel Pattern: Normal Comment: on bowel regimen Bowel Management: Moderate Assistance - Transfers Transfers: Moderate Assistance - ADL's ADL's: Minimal Assistance - Pain Management Comments: denies any pain - Patient/Family Teaching Comments: safety fall post cva care - Goals/Time Frame Comments: as per multidiciplinary plan of care - Provider Provider: Giacomo Osborn Physical Therapy - Bed Mobility Bed Mobility: Contact Guard - Transfers Wheelchair to Mat: Contact Guard Sit to Stand: Contact Guard - Ambulation Level of Assistance: Minimal Assistance Distance (ft.): 60 Assistive Devices: Rolling Walker - Stair Negotiation Stairs: Level of Assistance: Minimal Assistance Number of Stairs: 12 Handrails: Bilateral - Standing Balance Static Stand: Contact Guard Assist Dynamic Stand: Minimal Assistance - Pain Pain (assessed during therapy session): 0 Management Techniques: Medication - Insight/Carryover Insight/Carryover: Good - Patient/Family Education Comment: -adls, transfers, mobility training using adaptive/compensatory strategies. -rehab/OT goals, tx plan. -w/c management, brake mangement for safe transfers. -educated on uses/application of shower chair, commode and RW. -LUE ROM exercises/mangement. -postural control/haed alignement - Assessment/Plan Assessment: Pt is a 47 year old female with dx: acute CVA. Pt demoes :impaired LUE strength, coordination, endurance, impaired standing balance/tolerance, impaired safety awareness, impaired posture/neck alignment, impaired overall endurance/activity tolerance, impaired knowledge of adaptive/compensatory strategies---which impact on function in self care, transfers/mobility and Iadls. Patient is doing well. Ms. Sheldon is able to perform transfers with cga/ min A . complete LB self care tasks with cga as well as her dynamic standing balance/tolerance is improving. As per 9 hole peg test results pt's FM coordination is also improving. Pt will continue to benefit from skilled OT to address above impiraments as needed to maxmize function /safety for self care, transfers, mobility and Iadls, + caregiver education, DME needs assessment for safe transition home with supervision/proper DMES. Pt continues to make steady progress in performance areas/components. *Goal: Mod I for adls, transfers/ mobility with assistive devices & adaptive/compensatory strategies - Goals Timeframe: 8 days Goals: -FEEDING: Mod I. -GROOMING: I/setup seated; Supervision standing with assistive device. -UPPER BODY DRESSING: I/setup. -LOWER BODY DRESSING: S/set up with assistive devices prn. -TOILETING: CS/CG & verbal cues. -BATHING(upper /lower body): CS/CG--setup seated. -TRANSFERS:<->bed, commode, chair, w/c, shower chair and otehr surfaces with CS/Supervision with RW. -HOMEMAKING SKILLS : Min assist and verbal cues. -GATHER/TRANSPORTS ITEMS: CG/CS assist & verbal cues. -CAREGIVER ED: caregiver to be I assisting/cueig/gaurding pt for self care, transfers, mobility. -LUE STRENGTH: Increase to 4/5 or greater, increase L seam presser to 20 lbs or > for improve adl function - Provider Therapist: Janice Wall PT DPT License Number: [id number] Occupational Therapy - Arousal/Attention/Orientation Patient Orientation: Person, Place, Time - ADL/IADL Self Feeding: Independent, Set-up Help Grooming: Supervision, Set-up Help Bathing-Upper Extremity: Supervision, Verbal Cues, Set-up Help, Contact Guard Bathing-Lower Extremity: Supervision, Verbal Cues, Set-up Help, Contact Guard Dressing-Upper Extremity: Supervision, Verbal Cues, Set-up Help Dressing-Lower Extremity: Verbal Cues, Set-up Help, Minimal Assistance Comment: shower seated with hand held shower - Sitting Balance Static Sitting: Independent without upper extremity support - Transfers Wheelchair to Bed Transfers: Verbal Cues, Set-up Help, Minimal Assistance Toilet Transfers: Verbal Cues, Set-up Help, Minimal Assistance Comment: shower transfers: minimal assist and verbal cues - Upper Extremity Status Right Upper Extremity Comment: AROM is WNLs; R seam presser-62-lbs Left Upper Extremity Comment: AROM is WFLS with impaired strength, fine motor coordination; L seam presser-12-lbs - Pain Pain (assessed during therapy session): 0 Alleviating Techniques: Medication - Insight/Carryover Insight/Carryover: Good - Patient/Family Education Comment: -adls, transfers, mobility training using adaptive/compensatory strategies. -rehab/OT goals, tx plan. -w/c management, brake mangement for safe transfers. -educated on uses/application of shower chair, commode and RW. -LUE ROM exercises/mangement. -postural control/haed alignement - Assessment/Plan Assessment: Pt is a 47 year old female with dx: acute CVA. Pt demoes :impaired LUE strength, coordination, endurance, impaired standing balance/tolerance, impaired safety awareness, impaired posture/neck alignment, impaired overall endurance/activity tolerance, impaired knowledge of adaptive/compensatory strategies---which impact on function in self care, transfers/mobility and Iadls. Patient is doing well. Ms. Sheldon is able to perform transfers with cga/ min A . complete LB self care tasks with cga as well as her dynamic standing balance/tolerance is improving. As per 9 hole peg test results pt's FM coordination is also improving. Pt will continue to benefit from skilled OT to address above impiraments as needed to maxmize function /safety for self care, transfers, mobility and Iadls, + caregiver education, DME needs assessment for safe transition home with supervision/proper DMES. Pt continues to make steady progress in performance areas/components. *Goal: Mod I for adls, transfers/ mobility with assistive devices & adaptive/compensatory strategies - Goals Timeframe: 8 days Goals: -FEEDING: Mod I. -GROOMING: I/setup seated; Supervision standing with assistive device. -UPPER BODY DRESSING: I/setup. -LOWER BODY DRESSING: S/set up with assistive devices prn. -TOILETING: CS/CG & verbal cues. -BATHING(upper /lower body): CS/CG--setup seated. -TRANSFERS:<->bed, commode, chair, w/c, shower chair and otehr surfaces with CS/Supervision with RW. -HOMEMAKING SKILLS : Min assist and verbal cues. -GATHER/TRANSPORTS ITEMS: CG/CS assist & verbal cues. -CAREGIVER ED: caregiver to be I assisting/cueig/gaurding pt for self care, transfers, mobility. -LUE STRENGTH: Increase to 4/5 or greater, increase L seam presser to 20 lbs or > for improve adl function - Provider Therapist: CINDY Cazares/Alex License Number: [id number] Speech Therapy - Plan Assessment: Pt is a 47 year old female with dx: acute CVA. Pt demoes :impaired LUE strength, coordination, endurance, impaired standing balance/tolerance, impaired safety awareness, impaired posture/neck alignment, impaired overall endurance/activity tolerance, impaired knowledge of adaptive/compensatory strategies---which impact on function in self care, transfers/mobility and Iadls. Patient is doing well. Ms. Sheldon is able to perform transfers with cga/ min A . complete LB self care tasks with cga as well as her dynamic standing balance/tolerance is improving. As per 9 hole peg test results pt's FM coordination is also improving. Pt will continue to benefit from skilled OT to address above impiraments as needed to maxmize function /safety for self care, transfers, mobility and Iadls, + caregiver education, DME needs assessment for safe transition home with supervision/proper DMES. Pt continues to make steady progress in performance areas/components. *Goal: Mod I for adls, transfers/ mobility with assistive devices & adaptive/compensatory strategies Recreational Therapy - Participation Participation: Monitors His/Her Own Leisure Time - Attendance Attendance: Daily - Activities Leisure Activities: Socializing - Socialization Level of Socialization: Initiates/interacts freely with care givers and peer - Diversional Time Diversional Time: socializing with family and guests, watching television - Assessment Assessment/Plan: Pt is a 47 year old female with dx: acute CVA. Pt demoes : impaired LUE strength, coordination, endurance, impaired standing balance/ tolerance, impaired safety awareness, impaired posture/neck alignment, impaired overall endurance/activity tolerance, impaired knowledge of adaptive/ compensatory strategies---which impact on function in self care, transfers/ mobility and Iadls. Patient is doing well. Ms. Sheldon is able to perform transfers with cga/min A . complete LB self care tasks with cga as well as her dynamic standing balance/tolerance is improving. As per 9 hole peg test results pt's FM coordination is also improving. Pt will continue to benefit from skilled OT to address above impiraments as needed to maxmize function /safety for self care, transfers, mobility and Iadls, + caregiver education, DME needs assessment for safe transition home with supervision/proper DMES. Pt continues to make steady progress in performance areas/components. *Goal: Mod I for adls , transfers/mobility with assistive devices & adaptive/compensatory strategies - Provider Therapist: Naz Palafox, FELTMAKER #[id number] Nutrition - Current Diet Current Diet/ Supplement/ Feedings: Heart healthy soft ensure pudding 4 ounces 3 per day - Appetite Percent Meal Consumed: 75-100% - Comments Comments: safety fall post cva care - Assessment/Goals/Time Frame Assessment/Goals/Time Frame: Pt at moderate nutritional risk. Pt to consume at least 75% meals without GI upset or issues chewing x 5-7 days. Pt weight to remain stable within 2-3# x 5-7 days. Follow-up due on 10/09/2017 - Provider Provider: Rox Manning RD Case Management - Psychosocial Assessment Support Systems: Song Sheldon (spouse)- [phone] Psychological Interventions/Needs: Patient is alert and oriented x3 and able to verbalize needs. Patient is cooperative and motivated for therapy. Patient/Family Meeting: CM met with patient and rehab team Intervention/Goal/Outcome:: 1.Goal: Modified independence overall. 2. Plan: Home with VNS. 3. caregiver training to be arranged with spouse. 4. DME needs. 5. f/u appts. 6. continued stay auth, LAD: 10/03, udpates to be faxed at that time.. 7. continued emotional support - Discharge Plan Discharge Plan: Home with significant other/family - Provider Provider: MIRIAM Lazo, [employer] License Number: [id number] Rehabilitation Plan - Treatment Plan Treatment Plan: Physical Therapy, Occupational Therapy, Speech, Dietary, Patient /Family Education - Discharge Plan Estimated Date of Discharge: 09/13/17 Discharge to: Home
--- NOTE | 2017-10-09 20:07 | CP.PCM.PN ---
Subjective - Date & Time of Evaluation Date of Evaluation: 10/09/17 Time of Evaluation: 20:06 - Subjective Subjective: patient seen in the room + UTI + blood culture started on Cipro affected her rehab and had a decrease in function compared with sunday denies pain will hopefully see an improvement in her medical condition which seemed to have held her back continue current care Objective - Vital Signs/Intake and Output Vital Signs (last 24 hours): Temp Pulse Resp BP Pulse Ox 97.1 F L 78 20 122/78 98 10/09/17 09:33 10/09/17 09:33 10/09/17 09:33 10/09/17 09:33 10/09/17 09:33 - Medications Medications: Current Medications Acetaminophen (Tylenol 325mg Tab) 650 mg PO Q4 PRN PRN Reason: Pain Scale 4-10. Atorvastatin Calcium (Lipitor) 20 mg PO HS [facility] Last Admin: 10/08/17 21:24 Dose: 20 mg Chlorpromazine (Thorazine) 25 mg PO Q6 PRN PRN Reason: Hiccups Last Admin: 10/03/17 21:11 Dose: 25 mg Ciprofloxacin (Cipro) 500 mg PO Q12 [facility] PRN Reason: Protocol Clopidogrel Bisulfate (Plavix) 75 mg PO DAILY [facility] Last Admin: 10/09/17 08:16 Dose: 75 mg Dabigatran (Pradaxa) 150 mg PO BID [facility] PRN Reason: Protocol Last Admin: 10/09/17 17:27 Dose: 150 mg Dexamethasone (Decadron) 2 mg PO Q12 [facility] Last Admin: 10/09/17 08:15 Dose: 2 mg Docusate Sodium (Colace) 100 mg PO BID [facility] Last Admin: 10/09/17 17:26 Dose: 100 mg Famotidine (Pepcid) 20 mg PO Q12 [facility] Last Admin: 10/09/17 08:16 Dose: 20 mg Fluconazole (Diflucan) 100 mg PO DAILY [facility] PRN Reason: Protocol Lactulose (Enulose) 20 gm PO DAILY PRN PRN Reason: Constipation Last Admin: 10/01/17 21:19 Dose: 20 gm Meclizine HCl (Antivert) 25 mg PO TID [facility] Last Admin: 10/09/17 17:26 Dose: 25 mg Metoclopramide HCl (Reglan) 10 mg IVP Q6 PRN PRN Reason: Nausea/Vomiting Metoprolol Tartrate (Lopressor) 12.5 mg PO Q12 [facility] Last Admin: 10/09/17 08:15 Dose: 12.5 mg Sodium Chloride ([place] Nasal [place]) 2 sprays PRABHAKAR Q4 PRN PRN Reason: Nasal congestion Last Admin: 10/06/17 08:14 Dose: 1 spr Sodium Phosphate (Fleet Enema) 135 ml [place] DAILY PRN PRN Reason: Constipation Last Admin: 10/01/17 22:23 Dose: 135 ml Sucralfate (Carafate Oral Susp) 1 gm PO QID [facility] Last Admin: 10/09/17 17:26 Dose: 1 gm Topiramate (Topamax) 50 mg PO Q12 [facility] Last Admin: 10/09/17 08:16 Dose: 50 mg - Labs Labs: 10/08/17 07:01 10/08/17 05:25
--- NOTE | 2017-10-09 22:13 | CP.PCM.PN ---
Subjective - Date & Time of Evaluation Date of Evaluation: 10/09/17 Time of Evaluation: 20:00 - Subjective Subjective: Feels more tired. Objective - Vital Signs/Intake and Output Vital Signs (last 24 hours): Temp Pulse Resp BP Pulse Ox 98.1 F 76 20 139/89 99 10/09/17 20:43 10/09/17 21:00 10/09/17 20:43 10/09/17 21:00 10/09/17 20:43 - Medications Medications: Current Medications Acetaminophen (Tylenol 325mg Tab) 650 mg PO Q4 PRN PRN Reason: Pain Scale 4-10. Atorvastatin Calcium (Lipitor) 20 mg PO HS [facility] Last Admin: 10/09/17 22:03 Dose: 20 mg Chlorpromazine (Thorazine) 25 mg PO Q6 PRN PRN Reason: Hiccups Last Admin: 10/03/17 21:11 Dose: 25 mg Ciprofloxacin (Cipro) 500 mg PO Q12 [facility] PRN Reason: Protocol Last Admin: 10/09/17 22:03 Dose: 500 mg Clopidogrel Bisulfate (Plavix) 75 mg PO DAILY [facility] Last Admin: 10/09/17 08:16 Dose: 75 mg Dabigatran (Pradaxa) 150 mg PO BID [facility] PRN Reason: Protocol Last Admin: 10/09/17 17:27 Dose: 150 mg Dexamethasone (Decadron) 2 mg PO Q12 [facility] Last Admin: 10/09/17 22:11 Dose: 2 mg Docusate Sodium (Colace) 100 mg PO BID [facility] Last Admin: 10/09/17 17:26 Dose: 100 mg Famotidine (Pepcid) 20 mg PO Q12 [facility] Last Admin: 10/09/17 22:02 Dose: 20 mg Fluconazole (Diflucan) 100 mg PO DAILY [facility] PRN Reason: Protocol Lactulose (Enulose) 20 gm PO DAILY PRN PRN Reason: Constipation Last Admin: 10/01/17 21:19 Dose: 20 gm Meclizine HCl (Antivert) 25 mg PO TID [facility] Last Admin: 10/09/17 17:26 Dose: 25 mg Metoclopramide HCl (Reglan) 10 mg IVP Q6 PRN PRN Reason: Nausea/Vomiting Metoprolol Tartrate (Lopressor) 12.5 mg PO Q12 [facility] Last Admin: 10/09/17 21:00 Dose: 12.5 mg Sodium Chloride ([place] Nasal [place]) 2 sprays PRABHAKAR Q4 PRN PRN Reason: Nasal congestion Last Admin: 10/06/17 08:14 Dose: 1 spr Sodium Phosphate (Fleet Enema) 135 ml [place] DAILY PRN PRN Reason: Constipation Last Admin: 10/01/17 22:23 Dose: 135 ml Sucralfate (Carafate Oral Susp) 1 gm PO QID [facility] Last Admin: 10/09/17 22:03 Dose: 1 gm Topiramate (Topamax) 50 mg PO Q12 [facility] Last Admin: 10/09/17 22:01 Dose: 50 mg - Labs Labs: 10/08/17 07:01 10/08/17 05:25 - Head Exam Head Exam: ATRAUMATIC - Eye Exam Eye Exam: Normal appearance - ENT Exam ENT Exam: Mucous Membranes Dry - Respiratory Exam Respiratory Exam: NORMAL BREATHING PATTERN - Cardiovascular Exam Cardiovascular Exam: +S1, +S2 - GI/Abdominal Exam GI & Abdominal Exam: Normal Bowel Sounds Assessment and Plan (1) Thrombocytosis Assessment & Plan: likely reactive from iron deficiency should come down with iron supplementation Status: Acute (2) Leukocytosis Assessment & Plan: on antibiotics Status: Acute (3) Anemia Assessment & Plan: iron deficiency will start PO iron Status: Chronic (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
[2017-10-10] MEDS: Sucralfate 1 gm/10 ml Oral Susp UD PO SCH ×4 (08:24→21:47)
--- NOTE | 2017-10-10 11:45 | CP.PCM.PN ---
Subjective - Date & Time of Evaluation Date of Evaluation: 10/10/17 Time of Evaluation: 11:44 - Subjective Subjective: Ms. Kleber Sheldon was seen and examined at the bedside. She is alert, oriented in all spheres. She denies any headache, dizziness, diplopia,. She is able to raise her left arm above her head. She further claims of feeling better with each therapy session. She complains of blurred vision of the left eye which occurred intermittent. There was no untoward events overnight. Objective - Vital Signs/Intake and Output Vital Signs (last 24 hours): Temp Pulse Resp BP Pulse Ox 98.2 F 92 H 20 138/75 97 10/10/17 08:39 10/10/17 08:39 10/10/17 08:39 10/10/17 08:39 10/10/17 08:39 - Medications Medications: Current Medications Acetaminophen (Tylenol 325mg Tab) 650 mg PO Q4 PRN PRN Reason: Pain Scale 4-10. Atorvastatin Calcium (Lipitor) 20 mg PO HS [facility] Last Admin: 10/09/17 22:03 Dose: 20 mg Chlorpromazine (Thorazine) 25 mg PO Q6 PRN PRN Reason: Hiccups Last Admin: 10/03/17 21:11 Dose: 25 mg Ciprofloxacin (Cipro) 500 mg PO Q12 [facility] PRN Reason: Protocol Last Admin: 10/10/17 08:23 Dose: 500 mg Clopidogrel Bisulfate (Plavix) 75 mg PO DAILY [facility] Last Admin: 10/10/17 08:22 Dose: 75 mg Dabigatran (Pradaxa) 150 mg PO BID [facility] PRN Reason: Protocol Last Admin: 10/10/17 08:22 Dose: 150 mg Dexamethasone (Decadron) 2 mg PO Q12 [facility] Last Admin: 10/10/17 08:23 Dose: 2 mg Docusate Sodium (Colace) 100 mg PO BID [facility] Last Admin: 10/10/17 08:23 Dose: 100 mg Famotidine (Pepcid) 20 mg PO Q12 [facility] Last Admin: 10/10/17 08:23 Dose: 20 mg Ferrous Sulfate (Feosol) 325 mg PO DAILY [facility] Last Admin: 10/10/17 08:22 Dose: 325 mg Fluconazole (Diflucan) 100 mg PO DAILY [facility] PRN Reason: Protocol Last Admin: 10/10/17 08:23 Dose: 100 mg Lactulose (Enulose) 20 gm PO DAILY PRN PRN Reason: Constipation Last Admin: 10/01/17 21:19 Dose: 20 gm Meclizine HCl (Antivert) 25 mg PO TID [facility] Last Admin: 10/10/17 08:24 Dose: 25 mg Metoclopramide HCl (Reglan) 10 mg IVP Q6 PRN PRN Reason: Nausea/Vomiting Metoprolol Tartrate (Lopressor) 12.5 mg PO Q12 [facility] Last Admin: 10/10/17 08:22 Dose: 12.5 mg Sodium Chloride ([place] Nasal [place]) 2 sprays PRABHAKAR Q4 PRN PRN Reason: Nasal congestion Last Admin: 10/06/17 08:14 Dose: 1 spr Sodium Phosphate (Fleet Enema) 135 ml [place] DAILY PRN PRN Reason: Constipation Last Admin: 10/01/17 22:23 Dose: 135 ml Sucralfate (Carafate Oral Susp) 1 gm PO QID [facility] Last Admin: 10/10/17 08:24 Dose: 1 gm Topiramate (Topamax) 50 mg PO Q12 [facility] Last Admin: 10/10/17 08:22 Dose: 50 mg - Labs Labs: 10/08/17 07:01 10/08/17 05:25 - Constitutional Appears: No Acute Distress - Head Exam Head Exam: NORMAL INSPECTION - Neurological Exam Neurological Exam: Alert, Awake, Oriented x3 Neuro motor strength exam: Left Upper Extremity: 4, Right Upper Extremity: 5, Left Lower Extremity: 5, Right Lower Extremity: 5 Additional comments: neurological unchanged from previous examination. Assessment and Plan (1) CVA (cerebral vascular accident) Assessment & Plan: Case discussed with Dr. Gatica, continue all current medical, physical, occupational therapies. Recommend a repeat CT scan of the head prior to discharge to determine her prednisone therapy. Status: Acute
--- NOTE | 2017-10-10 15:28 | CP.PCM.PN ---
Subjective - Date & Time of Evaluation Date of Evaluation: 10/10/17 Time of Evaluation: 08:45 - Subjective Subjective: F/U Acute CVA. Pt c/o of lost of the peripheral vision in the L eye, able to have central vision, no pain in upper extremity. Objective - Vital Signs/Intake and Output Vital Signs (last 24 hours): Temp Pulse Resp BP Pulse Ox 98.2 F 92 H 20 138/75 97 10/10/17 08:39 10/10/17 08:39 10/10/17 08:39 10/10/17 08:39 10/10/17 08:39 - Medications Medications: Current Medications Acetaminophen (Tylenol 325mg Tab) 650 mg PO Q4 PRN PRN Reason: Pain Scale 4-10. Atorvastatin Calcium (Lipitor) 20 mg PO HS [facility] Last Admin: 10/09/17 22:03 Dose: 20 mg Chlorpromazine (Thorazine) 25 mg PO Q6 PRN PRN Reason: Hiccups Last Admin: 10/03/17 21:11 Dose: 25 mg Ciprofloxacin (Cipro) 500 mg PO Q12 [facility] PRN Reason: Protocol Last Admin: 10/10/17 08:23 Dose: 500 mg Clopidogrel Bisulfate (Plavix) 75 mg PO DAILY [facility] Last Admin: 10/10/17 08:22 Dose: 75 mg Dabigatran (Pradaxa) 150 mg PO BID [facility] PRN Reason: Protocol Last Admin: 10/10/17 08:22 Dose: 150 mg Dexamethasone (Decadron) 2 mg PO Q12 [facility] Last Admin: 10/10/17 08:23 Dose: 2 mg Docusate Sodium (Colace) 100 mg PO BID [facility] Last Admin: 10/10/17 08:23 Dose: 100 mg Famotidine (Pepcid) 20 mg PO Q12 [facility] Last Admin: 10/10/17 08:23 Dose: 20 mg Ferrous Sulfate (Feosol) 325 mg PO DAILY [facility] Last Admin: 10/10/17 08:22 Dose: 325 mg Fluconazole (Diflucan) 100 mg PO DAILY [facility] PRN Reason: Protocol Last Admin: 10/10/17 08:23 Dose: 100 mg Lactulose (Enulose) 20 gm PO DAILY PRN PRN Reason: Constipation Last Admin: 10/01/17 21:19 Dose: 20 gm Meclizine HCl (Antivert) 25 mg PO TID [facility] Last Admin: 10/10/17 13:02 Dose: 25 mg Metoclopramide HCl (Reglan) 10 mg IVP Q6 PRN PRN Reason: Nausea/Vomiting Metoprolol Tartrate (Lopressor) 12.5 mg PO Q12 [facility] Last Admin: 10/10/17 08:22 Dose: 12.5 mg Sodium Chloride ([place] Nasal [place]) 2 sprays PRABHAKAR Q4 PRN PRN Reason: Nasal congestion Last Admin: 10/06/17 08:14 Dose: 1 spr Sodium Phosphate (Fleet Enema) 135 ml [place] DAILY PRN PRN Reason: Constipation Last Admin: 10/01/17 22:23 Dose: 135 ml Sucralfate (Carafate Oral Susp) 1 gm PO QID [facility] Last Admin: 10/10/17 13:03 Dose: 1 gm Topiramate (Topamax) 50 mg PO Q12 [facility] Last Admin: 10/10/17 08:22 Dose: 50 mg - Labs Labs: 10/08/17 07:01 10/08/17 05:25 - Constitutional Appears: No Acute Distress - Head Exam Head Exam: NORMAL INSPECTION - Eye Exam Eye Exam: PERRL Additional comments: No peripheral vision temporal L eye - ENT Exam ENT Exam: Normal Exam - Neck Exam Neck Exam: Normal Inspection - Respiratory Exam Respiratory Exam: Clear to Ausculation Bilateral - Cardiovascular Exam Cardiovascular Exam: REGULAR RHYTHM - GI/Abdominal Exam GI & Abdominal Exam: Soft, Normal Bowel Sounds - Extremities Exam Extremities Exam: Tenderness (LUE, minimal tenderness L arm, able to lift in aduction the LUE above the shoulder level.) - Neurological Exam Neurological Exam: Alert, Oriented x3 Additional comments: Decreased ROM LUE - Skin Skin Exam: Warm Assessment and Plan (1) Acute CVA (cerebrovascular accident) Status: Acute (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
[2017-10-11] MEDS: Sucralfate 1 gm/10 ml Oral Susp UD PO SCH ×4 (08:36→21:21)
--- NOTE | 2017-10-11 11:42 | CP.PCM.PN ---
Subjective - Date & Time of Evaluation Date of Evaluation: 10/11/17 Time of Evaluation: 11:42 - Subjective Subjective: Ms. Kleber Sheldon was seen and examined at the bedside. She is alert, oriented in all spheres. She denies any headache, dizziness, diplopia,. She is able to raise her left arm above her head. She further claims of feeling better with each therapy session. She complains of blurred vision of the left eye which occurred intermittent. There was no untoward events overnight. Objective - Vital Signs/Intake and Output Vital Signs (last 24 hours): Temp Pulse Resp BP Pulse Ox 97.9 F 84 21 143/76 98 10/11/17 08:30 10/11/17 08:37 10/11/17 08:30 10/11/17 08:37 10/11/17 08:30 - Medications Medications: Current Medications Acetaminophen (Tylenol 325mg Tab) 650 mg PO Q4 PRN PRN Reason: Pain Scale 4-10. Atorvastatin Calcium (Lipitor) 20 mg PO HS [facility] Last Admin: 10/10/17 21:45 Dose: 20 mg Chlorpromazine (Thorazine) 25 mg PO Q6 PRN PRN Reason: Hiccups Last Admin: 10/03/17 21:11 Dose: 25 mg Ciprofloxacin (Cipro) 500 mg PO Q12 [facility] PRN Reason: Protocol Last Admin: 10/11/17 08:36 Dose: 500 mg Clopidogrel Bisulfate (Plavix) 75 mg PO DAILY [facility] Last Admin: 10/11/17 08:36 Dose: 75 mg Dabigatran (Pradaxa) 150 mg PO BID [facility] PRN Reason: Protocol Last Admin: 10/11/17 08:36 Dose: 150 mg Dexamethasone (Decadron) 2 mg PO Q12 [facility] Last Admin: 10/11/17 08:37 Dose: 2 mg Docusate Sodium (Colace) 100 mg PO BID [facility] Last Admin: 10/11/17 08:36 Dose: 100 mg Famotidine (Pepcid) 20 mg PO Q12 [facility] Last Admin: 10/11/17 08:36 Dose: 20 mg Ferrous Sulfate (Feosol) 325 mg PO DAILY [facility] Last Admin: 10/11/17 08:37 Dose: 325 mg Lactulose (Enulose) 20 gm PO DAILY PRN PRN Reason: Constipation Last Admin: 10/01/17 21:19 Dose: 20 gm Meclizine HCl (Antivert) 25 mg PO TID [facility] Last Admin: 10/11/17 08:36 Dose: 25 mg Metoclopramide HCl (Reglan) 10 mg IVP Q6 PRN PRN Reason: Nausea/Vomiting Metoprolol Tartrate (Lopressor) 12.5 mg PO Q12 [facility] Last Admin: 10/11/17 08:37 Dose: 12.5 mg Phenylephrine HCl (Phenylephrine Opht 10% Soln) 1 drop OU .EVERY 1 MINUTE X3 [facility] Sodium Chloride ([place] Nasal [place]) 2 sprays PRABHAKAR Q4 PRN PRN Reason: Nasal congestion Last Admin: 10/06/17 08:14 Dose: 1 spr Sodium Phosphate (Fleet Enema) 135 ml [place] DAILY PRN PRN Reason: Constipation Last Admin: 10/01/17 22:23 Dose: 135 ml Sucralfate (Carafate Oral Susp) 1 gm PO QID [facility] Last Admin: 10/11/17 08:36 Dose: 1 gm Topiramate (Topamax) 50 mg PO Q12 [facility] Last Admin: 10/11/17 08:36 Dose: 50 mg Tropicamide (Mydriacyl 1% Opht Soln 15ml) 1 drop OU .EVERY 1 MINUTE [facility] - Labs Labs: 10/08/17 07:01 10/08/17 05:25 - Constitutional Appears: No Acute Distress - Head Exam Head Exam: NORMAL INSPECTION - Neurological Exam Neurological Exam: Alert, Awake Neuro motor strength exam: Left Upper Extremity: 4, Right Upper Extremity: 5, Left Lower Extremity: 5, Right Lower Extremity: 5 Additional comments: neurological unchanged from previous examination. Assessment and Plan (1) CVA (cerebral vascular accident) Assessment & Plan: Case discussed with Dr. Gatica, continue all current medical, physical, occupational therapies. Recommend a repeat CT scan of the head prior to discharge to determine her prednisone therapy. Status: Acute
--- NOTE | 2017-10-11 18:53 | CP.PCM.PN ---
Subjective - Date & Time of Evaluation Date of Evaluation: 10/11/17 Time of Evaluation: 18:52 - Subjective Subjective: Patient seen in the room doing much better today Will get a follow up CBC on po cipro, could not get a line denies fever ambulated 100' with CS today, again improved Objective - Vital Signs/Intake and Output Vital Signs (last 24 hours): Temp Pulse Resp BP Pulse Ox 97.9 F 84 21 143/76 98 10/11/17 08:30 10/11/17 08:37 10/11/17 08:30 10/11/17 08:37 10/11/17 08:30 - Medications Medications: Current Medications Acetaminophen (Tylenol 325mg Tab) 650 mg PO Q4 PRN PRN Reason: Pain Scale 4-10. Atorvastatin Calcium (Lipitor) 20 mg PO HS [facility] Last Admin: 10/10/17 21:45 Dose: 20 mg Chlorpromazine (Thorazine) 25 mg PO Q6 PRN PRN Reason: Hiccups Last Admin: 10/03/17 21:11 Dose: 25 mg Ciprofloxacin (Cipro) 500 mg PO Q12 [facility] PRN Reason: Protocol Last Admin: 10/11/17 08:36 Dose: 500 mg Clopidogrel Bisulfate (Plavix) 75 mg PO DAILY [facility] Last Admin: 10/11/17 08:36 Dose: 75 mg Dabigatran (Pradaxa) 150 mg PO BID [facility] PRN Reason: Protocol Last Admin: 10/11/17 17:13 Dose: 150 mg Dexamethasone (Decadron) 2 mg PO Q12 [facility] Last Admin: 10/11/17 08:37 Dose: 2 mg Docusate Sodium (Colace) 100 mg PO BID [facility] Last Admin: 10/11/17 17:14 Dose: 100 mg Famotidine (Pepcid) 20 mg PO Q12 [facility] Last Admin: 10/11/17 08:36 Dose: 20 mg Ferrous Sulfate (Feosol) 325 mg PO DAILY [facility] Last Admin: 10/11/17 08:37 Dose: 325 mg Fluconazole (Diflucan) 100 mg PO DAILY [facility] PRN Reason: Protocol Lactulose (Enulose) 20 gm PO DAILY PRN PRN Reason: Constipation Last Admin: 10/01/17 21:19 Dose: 20 gm Meclizine HCl (Antivert) 25 mg PO TID [facility] Last Admin: 10/11/17 17:13 Dose: 25 mg Metoclopramide HCl (Reglan) 10 mg IVP Q6 PRN PRN Reason: Nausea/Vomiting Metoprolol Tartrate (Lopressor) 12.5 mg PO Q12 [facility] Last Admin: 10/11/17 08:37 Dose: 12.5 mg Phenylephrine HCl (Phenylephrine Opht 10% Soln) 1 drop OU .EVERY 1 MINUTE X3 [facility] Sodium Chloride ([place] Nasal [place]) 2 sprays PRABHAKAR Q4 PRN PRN Reason: Nasal congestion Last Admin: 10/06/17 08:14 Dose: 1 spr Sodium Phosphate (Fleet Enema) 135 ml [place] DAILY PRN PRN Reason: Constipation Last Admin: 10/01/17 22:23 Dose: 135 ml Sucralfate (Carafate Oral Susp) 1 gm PO QID [facility] Last Admin: 10/11/17 17:13 Dose: 1 gm Topiramate (Topamax) 50 mg PO Q12 [facility] Last Admin: 10/11/17 08:36 Dose: 50 mg Tropicamide (Mydriacyl 1% Opht Soln 15ml) 1 drop OU .EVERY 1 MINUTE [facility] - Labs Labs: 10/08/17 07:01 10/08/17 05:25
[2017-10-12] MEDS ORDERED: Tropicamide 1% Opht 150 DROP/15 ML OU SCH (05:00)
[2017-10-12] MEDS ORDERED: Phenylephrine 2.5% Opht Soln OU SCH (05:00)
[2017-10-12] MEDS ORDERED: Phenylephrine 10% Opht Soln OU SCH (05:00)
[2017-10-12 06:23] LABS: HEMOGLOBIN 9.9 g/dL (12.0-16.0); MEAN CELL VOLUME 72.7 fl (81.0-99.0); MEAN CORPUSCULAR HEMOGLOBIN 22.9 pg (27.0-31.0); MEAN CORPUSCULAR HGB CONC 31.5 g/dL (33.0-37.0); RBC 4.32 Mil/uL (3.80-5.20); RED CELL DISTRIBUTION WIDTH 24.8 % (11.5-14.5); WHITE BLOOD COUNT 21.1 K/uL (4.8-10.8)
[2017-10-12] MEDS: Sucralfate 1 gm/10 ml Oral Susp UD PO SCH ×4 (08:24→22:07)
--- NOTE | 2017-10-12 10:08 | CP.PCM.PN ---
Subjective - Date & Time of Evaluation Date of Evaluation: 10/12/17 Time of Evaluation: 10:06 - Subjective Subjective: Ms. Kleber Sheldon was seen and examined at the bedside. She is alert, oriented in all spheres. She denies any headache, dizziness, diplopia,. She is able to raise her left arm above her head. She further claims of feeling better with each therapy session. She complains of blurred vision of the left eye which occurred intermittent and was seen by an opthalmologist this morning. There was no untoward events overnight. Objective - Vital Signs/Intake and Output Vital Signs (last 24 hours): Temp Pulse Resp BP Pulse Ox 98.2 F 81 20 144/87 99 10/12/17 07:33 10/12/17 08:25 10/12/17 07:33 10/12/17 08:25 10/12/17 07:33 - Medications Medications: Current Medications Acetaminophen (Tylenol 325mg Tab) 650 mg PO Q4 PRN PRN Reason: Pain Scale 4-10. Atorvastatin Calcium (Lipitor) 20 mg PO HS [facility] Last Admin: 10/11/17 21:21 Dose: 20 mg Chlorpromazine (Thorazine) 25 mg PO Q6 PRN PRN Reason: Hiccups Last Admin: 10/03/17 21:11 Dose: 25 mg Ciprofloxacin (Cipro) 500 mg PO Q12 [facility] PRN Reason: Protocol Last Admin: 10/12/17 08:26 Dose: 500 mg Clopidogrel Bisulfate (Plavix) 75 mg PO DAILY [facility] Last Admin: 10/12/17 08:27 Dose: 75 mg Dabigatran (Pradaxa) 150 mg PO BID [facility] PRN Reason: Protocol Last Admin: 10/12/17 08:24 Dose: 150 mg Dexamethasone (Decadron) 2 mg PO Q12 [facility] Last Admin: 10/12/17 08:27 Dose: 2 mg Docusate Sodium (Colace) 100 mg PO BID [facility] Last Admin: 10/12/17 08:26 Dose: 100 mg Famotidine (Pepcid) 20 mg PO Q12 [facility] Last Admin: 10/12/17 08:26 Dose: 20 mg Ferrous Sulfate (Feosol) 325 mg PO DAILY [facility] Last Admin: 10/12/17 08:25 Dose: 325 mg Fluconazole (Diflucan) 100 mg PO DAILY [facility] PRN Reason: Protocol Last Admin: 10/12/17 08:27 Dose: 100 mg Lactulose (Enulose) 20 gm PO DAILY PRN PRN Reason: Constipation Last Admin: 10/01/17 21:19 Dose: 20 gm Meclizine HCl (Antivert) 25 mg PO TID [facility] Last Admin: 10/12/17 08:25 Dose: 25 mg Metoclopramide HCl (Reglan) 10 mg IVP Q6 PRN PRN Reason: Nausea/Vomiting Metoprolol Tartrate (Lopressor) 12.5 mg PO Q12 [facility] Last Admin: 10/12/17 08:25 Dose: 12.5 mg Phenylephrine HCl (Phenylephrine Opht 2.5% Soln) 1 drop OU .EVERY 1 MINUTE [facility] Last Admin: 10/12/17 05:04 Dose: 1 drop Sodium Chloride ([place] Nasal [place]) 2 sprays PRABHAKAR Q4 PRN PRN Reason: Nasal congestion Last Admin: 10/06/17 08:14 Dose: 1 spr Sodium Phosphate (Fleet Enema) 135 ml [place] DAILY PRN PRN Reason: Constipation Last Admin: 10/01/17 22:23 Dose: 135 ml Sucralfate (Carafate Oral Susp) 1 gm PO QID [facility] Last Admin: 10/12/17 08:24 Dose: 1 gm Topiramate (Topamax) 50 mg PO Q12 [facility] Last Admin: 10/12/17 08:28 Dose: 50 mg Tropicamide (Mydriacyl 1% Opht Soln 15ml) 1 drop OU .EVERY 1 MINUTE [facility] Last Admin: 10/12/17 05:09 Dose: 1 drop - Labs Labs: 10/12/17 05:45 10/08/17 05:25 - Constitutional Appears: No Acute Distress - Head Exam Head Exam: NORMAL INSPECTION - Neurological Exam Neurological Exam: Alert, Awake, Oriented x3 Neuro motor strength exam: Left Upper Extremity: 4, Right Upper Extremity: 5, Left Lower Extremity: 5, Right Lower Extremity: 5 Additional comments: Neurological unchanged from previous examination. Assessment and Plan (1) CVA (cerebral vascular accident) Assessment & Plan: Case discussed with Dr. Gatica, continue all current medical, physical, occupational therapies. Recommend a repeat CT scan of the head prior to discharge to determine her prednisone therapy. Status: Acute
--- NOTE | 2017-10-12 13:42 | CT ---
PROCEDURE: CT HEAD WITHOUT CONTRAST. HISTORY: follow up ischemic stroke and intracerebral edema COMPARISON: CT head dated 10/08/2017. TECHNIQUE: Axial computed tomography images were obtained through the head/brain without intravenous contrast. Radiation dose: Total exam DLP = 832.3 mGy-cm. This CT exam was performed using one or more of the following dose reduction techniques: Automated exposure control, adjustment of the mA and/or kV according to patient size, and/or use of iterative reconstruction technique. FINDINGS: HEMORRHAGE: No intracranial hemorrhage. BRAIN: No mass effect or edema. Similar area of hypoattenuation in the medial inferior left cerebellum. No atrophy or chronic microvascular ischemic changes. VENTRICLES: Unremarkable. No hydrocephalus. CALVARIUM: Unremarkable. PARANASAL SINUSES: Unremarkable as visualized. No significant inflammatory changes. MASTOID AIR CELLS: Unremarkable as visualized. No inflammatory changes. OTHER FINDINGS: None. IMPRESSION: Similar area of hypoattenuation in the medial inferior left cerebellum.
--- NOTE | 2017-10-12 21:51 | CP.PCM.PN ---
Subjective - Date & Time of Evaluation Date of Evaluation: 10/12/17 Time of Evaluation: 11:30 - Subjective Subjective: Feeling better, participating in rehab Objective - Vital Signs/Intake and Output Vital Signs (last 24 hours): Temp Pulse Resp BP Pulse Ox 97.9 F 93 H 20 135/69 98 10/12/17 20:01 10/12/17 20:01 10/12/17 20:01 10/12/17 20:01 10/12/17 20:01 - Medications Medications: Current Medications Acetaminophen (Tylenol 325mg Tab) 650 mg PO Q4 PRN PRN Reason: Pain Scale 4-10. Atorvastatin Calcium (Lipitor) 20 mg PO HS [facility] Last Admin: 10/11/17 21:21 Dose: 20 mg Chlorpromazine (Thorazine) 25 mg PO Q6 PRN PRN Reason: Hiccups Last Admin: 10/03/17 21:11 Dose: 25 mg Ciprofloxacin (Cipro) 500 mg PO Q12 [facility] PRN Reason: Protocol Last Admin: 10/12/17 08:26 Dose: 500 mg Clopidogrel Bisulfate (Plavix) 75 mg PO DAILY [facility] Last Admin: 10/12/17 08:27 Dose: 75 mg Dabigatran (Pradaxa) 150 mg PO BID [facility] PRN Reason: Protocol Last Admin: 10/12/17 16:35 Dose: 150 mg Dexamethasone (Decadron) 2 mg PO Q12 [facility] Last Admin: 10/12/17 08:27 Dose: 2 mg Docusate Sodium (Colace) 100 mg PO BID [facility] Last Admin: 10/12/17 16:35 Dose: 100 mg Famotidine (Pepcid) 20 mg PO Q12 [facility] Last Admin: 10/12/17 08:26 Dose: 20 mg Ferrous Sulfate (Feosol) 325 mg PO DAILY [facility] Last Admin: 10/12/17 08:25 Dose: 325 mg Fluconazole (Diflucan) 100 mg PO DAILY [facility] PRN Reason: Protocol Last Admin: 10/12/17 08:27 Dose: 100 mg Lactulose (Enulose) 20 gm PO DAILY PRN PRN Reason: Constipation Last Admin: 10/01/17 21:19 Dose: 20 gm Meclizine HCl (Antivert) 25 mg PO TID [facility] Last Admin: 10/12/17 16:35 Dose: 25 mg Metoclopramide HCl (Reglan) 10 mg IVP Q6 PRN PRN Reason: Nausea/Vomiting Metoprolol Tartrate (Lopressor) 12.5 mg PO Q12 [facility] Last Admin: 10/12/17 08:25 Dose: 12.5 mg Phenylephrine HCl (Phenylephrine Opht 2.5% Soln) 1 drop OU .EVERY 1 MINUTE [facility] Last Admin: 10/12/17 05:04 Dose: 1 drop Sodium Chloride ([place] Nasal [place]) 2 sprays PRABHAKAR Q4 PRN PRN Reason: Nasal congestion Last Admin: 10/06/17 08:14 Dose: 1 spr Sodium Phosphate (Fleet Enema) 135 ml [place] DAILY PRN PRN Reason: Constipation Last Admin: 10/01/17 22:23 Dose: 135 ml Sucralfate (Carafate Oral Susp) 1 gm PO QID [facility] Last Admin: 10/12/17 16:35 Dose: 1 gm Topiramate (Topamax) 50 mg PO Q12 [facility] Last Admin: 10/12/17 08:28 Dose: 50 mg Tropicamide (Mydriacyl 1% Opht Soln 15ml) 1 drop OU .EVERY 1 MINUTE [facility] Last Admin: 10/12/17 05:09 Dose: 1 drop - Labs Labs: 10/12/17 05:45 10/08/17 05:25 - Head Exam Head Exam: ATRAUMATIC - Eye Exam Eye Exam: Normal appearance - ENT Exam ENT Exam: Mucous Membranes Dry - Respiratory Exam Respiratory Exam: NORMAL BREATHING PATTERN - Cardiovascular Exam Cardiovascular Exam: +S1, +S2 - GI/Abdominal Exam GI & Abdominal Exam: Normal Bowel Sounds Assessment and Plan (1) Thrombocytosis Assessment & Plan: likely reactive from iron deficiency should come down with iron supplementation Status: Acute (2) Leukocytosis Assessment & Plan: on antibiotics Status: Acute (3) Anemia Assessment & Plan: iron deficiency on oral iron Status: Chronic (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
[2017-10-13] MEDS: Sucralfate 1 gm/10 ml Oral Susp UD PO SCH ×4 (08:32→21:32)
--- NOTE | 2017-10-13 11:23 | CP.PCM.PN ---
Subjective - Date & Time of Evaluation Date of Evaluation: 10/13/17 Time of Evaluation: 07:00 - Subjective Subjective: no acute complaints at present Objective - Vital Signs/Intake and Output Vital Signs (last 24 hours): Temp Pulse Resp BP Pulse Ox 97.5 F L 88 18 154/87 H 97 10/13/17 07:49 10/13/17 08:33 10/13/17 07:49 10/13/17 08:33 10/13/17 07:49 - Medications Medications: Current Medications Acetaminophen (Tylenol 325mg Tab) 650 mg PO Q4 PRN PRN Reason: Pain Scale 4-10. Atorvastatin Calcium (Lipitor) [address] [facility] Last Admin: 10/12/17 21:56 Dose: 20 mg Chlorpromazine (Thorazine) 25 mg PO Q6 PRN PRN Reason: Hiccups Last Admin: 10/03/17 21:11 Dose: 25 mg Ciprofloxacin (Cipro) 500 mg PO Q12 [facility] PRN Reason: Protocol Last Admin: 10/13/17 08:32 Dose: 500 mg Clopidogrel Bisulfate (Plavix) [address] [facility] Last Admin: 10/13/17 08:35 Dose: 75 mg Dabigatran (Pradaxa) [address] [facility] PRN Reason: Protocol Last Admin: 10/13/17 08:32 Dose: 150 mg Dexamethasone (Decadron) [address] [facility] Last Admin: 10/13/17 08:33 Dose: 2 mg Docusate Sodium (Colace) [address] [facility] Last Admin: 10/13/17 08:32 Dose: 100 mg Famotidine (Pepcid) [address] [facility] Last Admin: 10/13/17 08:32 Dose: 20 mg Ferrous Sulfate (Feosol) [address] [facility] Last Admin: 10/13/17 08:33 Dose: 325 mg Fluconazole (Diflucan) [address] [facility] PRN Reason: Protocol Last Admin: 10/13/17 08:32 Dose: 100 mg Lactulose (Enulose) 20 gm PO DAILY PRN PRN Reason: Constipation Last Admin: 10/01/17 21:19 Dose: 20 gm Meclizine HCl (Antivert) [address] [facility] Last Admin: 10/13/17 08:32 Dose: 25 mg Metoclopramide HCl (Reglan) 10 mg IVP Q6 PRN PRN Reason: Nausea/Vomiting Metoprolol Tartrate (Lopressor) 12.[address] [facility] Last Admin: 10/13/17 08:33 Dose: 12.5 mg Phenylephrine HCl (Phenylephrine Opht 2.5% Soln) 1 drop OU .EVERY [address] [facility] Last Admin: 10/12/17 05:04 Dose: 1 drop Sodium Chloride ([place] Nasal [place]) 2 sprays PRABHAKAR Q4 PRN PRN Reason: Nasal congestion Last Admin: 10/06/17 08:14 Dose: 1 spr Sodium Phosphate (Fleet Enema) 135 ml [place] DAILY PRN PRN Reason: Constipation Last Admin: 10/01/17 22:23 Dose: 135 ml Sucralfate (Carafate Oral Susp) [address] [facility] Last Admin: 10/13/17 08:32 Dose: 1 gm Topiramate (Topamax) [address] [facility] Last Admin: 10/13/17 08:32 Dose: 50 mg Tropicamide (Mydriacyl 1% Opht Soln 15ml) 1 drop OU .EVERY [address] [facility] Last Admin: 10/12/17 05:09 Dose: 1 drop - Labs Labs: 10/12/17 05:45 10/08/17 05:25 - Head Exam Head Exam: ATRAUMATIC, NORMAL INSPECTION, NORMOCEPHALIC - Eye Exam Eye Exam: EOMI, Normal appearance, PERRL Pupil Exam: NORMAL ACCOMODATION - ENT Exam ENT Exam: Mucous Membranes Moist, Normal Exam - Neck Exam Neck Exam: Normal Inspection - Respiratory Exam Respiratory Exam: NORMAL BREATHING PATTERN - Cardiovascular Exam Cardiovascular Exam: REGULAR RHYTHM - GI/Abdominal Exam GI & Abdominal Exam: Normal Bowel Sounds - Rectal Exam Rectal Exam: NORMAL INSPECTION - Exam External exam: NORMAL EXTERNAL EXAM - Extremities Exam Extremities Exam: Full ROM, Normal Capillary Refill, Normal Inspection - Neurological Exam Neurological Exam: Alert, Awake - Psychiatric Exam Psychiatric exam: Normal Mood - Skin Skin Exam: Dry Assessment and Plan (1) 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
[2017-10-14] MEDS: Sucralfate 1 gm/10 ml Oral Susp UD PO SCH ×4 (08:30→22:09)
--- NOTE | 2017-10-15 06:55 | CON ---
DATE: 10/12/2017 HISTORY OF PRESENT ILLNESS: The patient is a 47-year-old white female, who states that she has had "three strokes" and has had decreased vision in her left eye ever since. PHYSICAL EXAMINATION: On physical examination, she has searching nystagmus in both eyes. Corneal exam is normal. Lens exam is normal. 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 The right eye appears normal. ASSESSMENT: My assessment is that the patient has decreased vision in her left eye from a branch vein occlusion as a result of her high blood pressure. I suggested that she come and see me in my office on discharge for thorough evaluation. Davi Mckinley MD
[2017-10-15] MEDS: Sucralfate 1 gm/10 ml Oral Susp UD PO SCH ×4 (08:47→21:01)
--- NOTE | 2017-10-15 09:58 | CP.PCM.PN ---
Subjective - Date & Time of Evaluation Date of Evaluation: 10/15/17 Time of Evaluation: 09:58 - Subjective Subjective: Ms. Kleber Sheldon was seen and examined at the bedside. She is alert, oriented in all spheres. She denies any headache, dizziness, diplopia,. She is able to raise her left arm above her head. She further claims of feeling better with each therapy session. She further states of seeing better, getting excited of being discharge this coming Sunday. CT scan of the head showed a hypoattentuation in the medial inferior of the left cerebellum. There was no untoward events overnight. Objective - Vital Signs/Intake and Output Vital Signs (last 24 hours): Temp Pulse Resp BP Pulse Ox 98.2 F 100 H 20 130/83 98 10/15/17 08:10 10/15/17 08:10 10/15/17 08:10 10/15/17 08:10 10/15/17 08:10 - Medications Medications: Current Medications Acetaminophen (Tylenol 325mg Tab) 650 mg PO Q4 PRN PRN Reason: Pain Scale 4-10. Atorvastatin Calcium (Lipitor) 20 mg PO HS [facility] Last Admin: 10/14/17 22:08 Dose: 20 mg Chlorpromazine (Thorazine) 25 mg PO Q6 PRN PRN Reason: Hiccups Last Admin: 10/03/17 21:11 Dose: 25 mg Ciprofloxacin (Cipro) 500 mg PO Q12 [facility] PRN Reason: Protocol Last Admin: 10/15/17 08:47 Dose: 500 mg Clopidogrel Bisulfate (Plavix) 75 mg PO DAILY [facility] Last Admin: 10/14/17 08:35 Dose: 75 mg Dabigatran (Pradaxa) 150 mg PO BID [facility] PRN Reason: Protocol Last Admin: 10/15/17 08:53 Dose: 150 mg Dexamethasone (Decadron) 2 mg PO Q12 [facility] Last Admin: 10/15/17 08:49 Dose: 2 mg Docusate Sodium (Colace) 100 mg PO BID [facility] Last Admin: 10/15/17 08:48 Dose: 100 mg Famotidine (Pepcid) 20 mg PO Q12 [facility] Last Admin: 10/15/17 08:52 Dose: 20 mg Ferrous Sulfate (Feosol) 325 mg PO DAILY [facility] Last Admin: 10/15/17 08:50 Dose: 325 mg Fluconazole (Diflucan) 100 mg PO DAILY [facility] PRN Reason: Protocol Last Admin: 10/15/17 08:49 Dose: 100 mg Lactulose (Enulose) 20 gm PO DAILY PRN PRN Reason: Constipation Last Admin: 10/01/17 21:19 Dose: 20 gm Meclizine HCl (Antivert) 25 mg PO TID [facility] Last Admin: 10/15/17 08:47 Dose: 25 mg Metoprolol Tartrate (Lopressor) 12.5 mg PO Q12 [facility] Last Admin: 10/15/17 08:52 Dose: 12.5 mg Phenylephrine HCl (Phenylephrine Opht 2.5% Soln) 1 drop OU .EVERY 1 MINUTE [facility] Last Admin: 10/12/17 05:04 Dose: 1 drop Sodium Chloride ([place] Nasal [place]) 2 sprays PRABHAKAR Q4 PRN PRN Reason: Nasal congestion Last Admin: 10/06/17 08:14 Dose: 1 spr Sodium Phosphate (Fleet Enema) 135 ml [place] DAILY PRN PRN Reason: Constipation Last Admin: 10/01/17 22:23 Dose: 135 ml Sucralfate (Carafate Oral Susp) 1 gm PO QID [facility] Last Admin: 10/15/17 08:47 Dose: 1 gm Topiramate (Topamax) 50 mg PO Q12 [facility] Last Admin: 10/15/17 08:53 Dose: 50 mg Tropicamide (Mydriacyl 1% Opht Soln 15ml) 1 drop OU .EVERY 1 MINUTE [facility] Last Admin: 10/12/17 05:09 Dose: 1 drop - Labs Labs: 10/12/17 05:45 10/08/17 05:25 - Constitutional Appears: No Acute Distress - Head Exam Head Exam: NORMAL INSPECTION - Neurological Exam Neurological Exam: Alert, Awake Neuro motor strength exam: Left Upper Extremity: 4, Right Upper Extremity: 5, Left Lower Extremity: 5, Right Lower Extremity: 5 Additional comments: Neurological unchanged from previous examination. Assessment and Plan (1) CVA (cerebral vascular accident) Assessment & Plan: Case with Dr. Starr, continue all current medical, physical, occupational therapies. Recommend to discontinue dexamethasone due to the new result of CT scan of the head. Status: Acute
--- NOTE | 2017-10-15 17:00 | CP.PCM.PN ---
Subjective - Date & Time of Evaluation Date of Evaluation: 10/15/17 Time of Evaluation: 08:45 - Subjective Subjective: F/U Acute CVA Pt awake, L side side weakness LUE > LLE. Objective - Vital Signs/Intake and Output Vital Signs (last 24 hours): Temp Pulse Resp BP Pulse Ox 98.2 F 100 H 20 130/83 98 10/15/17 08:10 10/15/17 08:10 10/15/17 08:10 10/15/17 08:10 10/15/17 08:10 - Medications Medications: Current Medications Acetaminophen (Tylenol 325mg Tab) 650 mg PO Q4 PRN PRN Reason: Pain Scale 4-10. Atorvastatin Calcium (Lipitor) 20 mg PO HS [facility] Last Admin: 10/14/17 22:08 Dose: 20 mg Chlorpromazine (Thorazine) 25 mg PO Q6 PRN PRN Reason: Hiccups Last Admin: 10/03/17 21:11 Dose: 25 mg Ciprofloxacin (Cipro) 500 mg PO Q12 [facility] PRN Reason: Protocol Last Admin: 10/15/17 08:47 Dose: 500 mg Clopidogrel Bisulfate (Plavix) 75 mg PO DAILY [facility] Last Admin: 10/15/17 12:01 Dose: 75 mg Dabigatran (Pradaxa) 150 mg PO BID [facility] PRN Reason: Protocol Last Admin: 10/15/17 08:53 Dose: 150 mg Docusate Sodium (Colace) 100 mg PO BID [facility] Last Admin: 10/15/17 08:48 Dose: 100 mg Famotidine (Pepcid) 20 mg PO Q12 [facility] Last Admin: 10/15/17 08:52 Dose: 20 mg Ferrous Sulfate (Feosol) 325 mg PO DAILY [facility] Last Admin: 10/15/17 08:50 Dose: 325 mg Fluconazole (Diflucan) 100 mg PO DAILY [facility] PRN Reason: Protocol Last Admin: 10/15/17 08:49 Dose: 100 mg Lactulose (Enulose) 20 gm PO DAILY PRN PRN Reason: Constipation Last Admin: 10/01/17 21:19 Dose: 20 gm Meclizine HCl (Antivert) 25 mg PO TID [facility] Last Admin: 10/15/17 12:01 Dose: 25 mg Metoprolol Tartrate (Lopressor) 12.5 mg PO Q12 [facility] Last Admin: 10/15/17 08:52 Dose: 12.5 mg Phenylephrine HCl (Phenylephrine Opht 2.5% Soln) 1 drop OU .EVERY 1 MINUTE [facility] Last Admin: 10/12/17 05:04 Dose: 1 drop Sodium Chloride ([place] Nasal [place]) 2 sprays PRABHAKAR Q4 PRN PRN Reason: Nasal congestion Last Admin: 10/06/17 08:14 Dose: 1 spr Sodium Phosphate (Fleet Enema) 135 ml [place] DAILY PRN PRN Reason: Constipation Last Admin: 10/01/17 22:23 Dose: 135 ml Sucralfate (Carafate Oral Susp) 1 gm PO QID [facility] Last Admin: 10/15/17 12:01 Dose: 1 gm Topiramate (Topamax) 50 mg PO Q12 [facility] Last Admin: 10/15/17 08:53 Dose: 50 mg Tropicamide (Mydriacyl 1% Opht Soln 15ml) 1 drop OU .EVERY 1 MINUTE [facility] Last Admin: 10/12/17 05:09 Dose: 1 drop - Labs Labs: 10/12/17 05:45 10/08/17 05:25 - Constitutional Appears: No Acute Distress - Head Exam Head Exam: NORMAL INSPECTION - Eye Exam Eye Exam: PERRL - ENT Exam ENT Exam: Normal Exam - Neck Exam Neck Exam: Normal Inspection - Respiratory Exam Respiratory Exam: Clear to Ausculation Bilateral - Cardiovascular Exam Cardiovascular Exam: REGULAR RHYTHM - GI/Abdominal Exam GI & Abdominal Exam: Soft, Normal Bowel Sounds - Extremities Exam Additional comments: no tenderness LUE , able to lift the LUE above the shoulder level - Back Exam Back Exam: NORMAL INSPECTION - Neurological Exam Neurological Exam: Alert, Oriented x3 Additional comments: L hemiparesia LUE - Psychiatric Exam Psychiatric exam: Anxious - Skin Skin Exam: Warm Assessment and Plan (1) Acute CVA (cerebrovascular accident) Status: Acute (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
[2017-10-15 17:56] LABS: HEMOGLOBIN 10.1 g/dL (12.0-16.0); MEAN CORPUSCULAR HEMOGLOBIN 23.4 pg (27.0-31.0); MEAN CORPUSCULAR HGB CONC 31.6 g/dL (33.0-37.0); RBC 4.3 Mil/uL (3.80-5.20); RED CELL DISTRIBUTION WIDTH 26.7 % (11.5-14.5); WHITE BLOOD COUNT 23.1 K/uL (4.8-10.8)
--- NOTE | 2017-10-15 18:18 | CP.PCM.PN ---
Subjective - Date & Time of Evaluation Date of Evaluation: 10/15/17 Time of Evaluation: 18:17 - Subjective Subjective: Patient seen in the room very happy with today's therapy ambulating 125'RW still needs some help with balance no pain no sob no fever continue current care Objective - Vital Signs/Intake and Output Vital Signs (last 24 hours): Temp Pulse Resp BP Pulse Ox 98.2 F 100 H 20 130/83 98 10/15/17 08:10 10/15/17 08:10 10/15/17 08:10 10/15/17 08:10 10/15/17 08:10 - Medications Medications: Current Medications Acetaminophen (Tylenol 325mg Tab) 650 mg PO Q4 PRN PRN Reason: Pain Scale 4-10. Atorvastatin Calcium (Lipitor) 20 mg PO HS [facility] Last Admin: 10/14/17 22:08 Dose: 20 mg Chlorpromazine (Thorazine) 25 mg PO Q6 PRN PRN Reason: Hiccups Last Admin: 10/03/17 21:11 Dose: 25 mg Ciprofloxacin (Cipro) 500 mg PO Q12 [facility] PRN Reason: Protocol Last Admin: 10/15/17 08:47 Dose: 500 mg Clopidogrel Bisulfate (Plavix) 75 mg PO DAILY [facility] Last Admin: 10/15/17 12:01 Dose: 75 mg Dabigatran (Pradaxa) 150 mg PO BID [facility] PRN Reason: Protocol Last Admin: 10/15/17 17:00 Dose: 150 mg Docusate Sodium (Colace) 100 mg PO BID [facility] Last Admin: 10/15/17 17:00 Dose: 100 mg Famotidine (Pepcid) 20 mg PO Q12 [facility] Last Admin: 10/15/17 08:52 Dose: 20 mg Ferrous Sulfate (Feosol) 325 mg PO DAILY [facility] Last Admin: 10/15/17 08:50 Dose: 325 mg Fluconazole (Diflucan) 100 mg PO DAILY [facility] PRN Reason: Protocol Last Admin: 10/15/17 08:49 Dose: 100 mg Lactulose (Enulose) 20 gm PO DAILY PRN PRN Reason: Constipation Last Admin: 10/01/17 21:19 Dose: 20 gm Meclizine HCl (Antivert) 25 mg PO TID [facility] Last Admin: 10/15/17 16:59 Dose: 25 mg Metoprolol Tartrate (Lopressor) 12.5 mg PO Q12 [facility] Last Admin: 10/15/17 08:52 Dose: 12.5 mg Phenylephrine HCl (Phenylephrine Opht 2.5% Soln) 1 drop OU .EVERY 1 MINUTE [facility] Last Admin: 10/12/17 05:04 Dose: 1 drop Sodium Chloride ([place] Nasal [place]) 2 sprays PRABHAKAR Q4 PRN PRN Reason: Nasal congestion Last Admin: 10/06/17 08:14 Dose: 1 spr Sodium Phosphate (Fleet Enema) 135 ml [place] DAILY PRN PRN Reason: Constipation Last Admin: 10/01/17 22:23 Dose: 135 ml Sucralfate (Carafate Oral Susp) 1 gm PO QID [facility] Last Admin: 10/15/17 16:59 Dose: 1 gm Topiramate (Topamax) 50 mg PO Q12 [facility] Last Admin: 10/15/17 08:53 Dose: 50 mg Tropicamide (Mydriacyl 1% Opht Soln 15ml) 1 drop OU .EVERY 1 MINUTE [facility] Last Admin: 10/12/17 05:09 Dose: 1 drop - Labs Labs: 10/15/17 17:45 10/08/17 05:25
[2017-10-15 18:24] LABS: BLOOD UREA NITROGEN 17 mg/dl (7-17); CALCIUM 9.2 mg/dL (8.4-10.2); GFR AFRICAN-AMERICAN > 60; GFR NON-AFRICAN AMERICAN 59
--- NOTE | 2017-10-15 20:03 | CP.PCM.PN ---
Subjective - Date & Time of Evaluation Date of Evaluation: 10/15/17 Time of Evaluation: 19:45 - Subjective Subjective: Feels tired post PT Objective - Vital Signs/Intake and Output Vital Signs (last 24 hours): Temp Pulse Resp BP Pulse Ox 98.2 F 100 H 20 130/83 98 10/15/17 08:10 10/15/17 08:10 10/15/17 08:10 10/15/17 08:10 10/15/17 08:10 - Medications Medications: Current Medications Acetaminophen (Tylenol 325mg Tab) 650 mg PO Q4 PRN PRN Reason: Pain Scale 4-10. Atorvastatin Calcium (Lipitor) 20 mg PO HS [facility] Last Admin: 10/14/17 22:08 Dose: 20 mg Chlorpromazine (Thorazine) 25 mg PO Q6 PRN PRN Reason: Hiccups Last Admin: 10/03/17 21:11 Dose: 25 mg Ciprofloxacin (Cipro) 500 mg PO Q12 [facility] PRN Reason: Protocol Last Admin: 10/15/17 08:47 Dose: 500 mg Clopidogrel Bisulfate (Plavix) 75 mg PO DAILY [facility] Last Admin: 10/15/17 12:01 Dose: 75 mg Dabigatran (Pradaxa) 150 mg PO BID [facility] PRN Reason: Protocol Last Admin: 10/15/17 17:00 Dose: 150 mg Docusate Sodium (Colace) 100 mg PO BID [facility] Last Admin: 10/15/17 17:00 Dose: 100 mg Famotidine (Pepcid) 20 mg PO Q12 [facility] Last Admin: 10/15/17 08:52 Dose: 20 mg Ferrous Sulfate (Feosol) 325 mg PO DAILY [facility] Last Admin: 10/15/17 08:50 Dose: 325 mg Fluconazole (Diflucan) 100 mg PO DAILY [facility] PRN Reason: Protocol Last Admin: 10/15/17 08:49 Dose: 100 mg Lactulose (Enulose) 20 gm PO DAILY PRN PRN Reason: Constipation Last Admin: 10/01/17 21:19 Dose: 20 gm Meclizine HCl (Antivert) 25 mg PO TID [facility] Last Admin: 10/15/17 16:59 Dose: 25 mg Metoprolol Tartrate (Lopressor) 12.5 mg PO Q12 [facility] Last Admin: 10/15/17 08:52 Dose: 12.5 mg Phenylephrine HCl (Phenylephrine Opht 2.5% Soln) 1 drop OU .EVERY 1 MINUTE [facility] Last Admin: 10/12/17 05:04 Dose: 1 drop Sodium Chloride ([place] Nasal [place]) 2 sprays PRABHAKAR Q4 PRN PRN Reason: Nasal congestion Last Admin: 10/06/17 08:14 Dose: 1 spr Sodium Phosphate (Fleet Enema) 135 ml [place] DAILY PRN PRN Reason: Constipation Last Admin: 10/01/17 22:23 Dose: 135 ml Sucralfate (Carafate Oral Susp) 1 gm PO QID [facility] Last Admin: 10/15/17 16:59 Dose: 1 gm Topiramate (Topamax) 50 mg PO Q12 [facility] Last Admin: 10/15/17 08:53 Dose: 50 mg Tropicamide (Mydriacyl 1% Opht Soln 15ml) 1 drop OU .EVERY 1 MINUTE [facility] Last Admin: 10/12/17 05:09 Dose: 1 drop - Labs Labs: 10/15/17 17:45 10/15/17 17:45 - Head Exam Head Exam: ATRAUMATIC - Eye Exam Eye Exam: Normal appearance - ENT Exam ENT Exam: Mucous Membranes Dry - Respiratory Exam Respiratory Exam: NORMAL BREATHING PATTERN - Cardiovascular Exam Cardiovascular Exam: +S1, +S2 - GI/Abdominal Exam GI & Abdominal Exam: Normal Bowel Sounds Assessment and Plan (1) Thrombocytosis Assessment & Plan: likely reactive from iron deficiency Status: Acute (2) Leukocytosis Assessment & Plan: on antibiotics Status: Acute (3) Anemia Assessment & Plan: iron deficiency on oral iron Status: Chronic (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
[2017-10-16] MEDS: Sucralfate 1 gm/10 ml Oral Susp UD PO SCH ×4 (08:48→21:02)
--- NOTE | 2017-10-16 13:06 | PSY.TMCNF ---
Nursing - Vital Signs Vital Signs (Last 8 hours): Vital Signs 10/16/17 10/16/17 10/16/17 08:17 08:49 09:00 Temperature 98.6 F 98.6 F Pulse Rate 94 H 94 H 94 H Respiratory 20 20 Rate Blood Pressure 137/87 137/83 137/83 O2 Sat by Pulse 97 Oximetry Pain: 0 - Precautions: Precautions: Fall Prevention, Aspiration, Seizure - Medications/Other Issues Comment: with episode of dizziness during therapy v/s stable relieved with rest also eyes bothers her and being in the dark helps on antibiotic therapy for uti - Consults Comment: Dr Miller,Dr Gatica ,Dr Blue,Dr Piper,Dr Mckinley - Toileting Toileting: Contact Guard - Bladder Management Bladder Pattern: Normal Voiding Method: Toilet, Bedpan Bladder Management: Supervision - Bowel Management Bowel Pattern: Normal Bowel Management: Contact Guard - Transfers Transfers: Contact Guard - ADL's ADL's: Contact Guard - Pain Management Comments: denies any pain - Patient/Family Teaching Comments: Safety, fall, post cva care, medication teaching - Goals/Time Frame Comments: as per multidiciplinary plan of care - Provider Provider: [facility] - Bed Mobility Bed Mobility: Supervision, Verbal Cues - Transfers Wheelchair to Mat: Supervision, Verbal Cues Sit to Stand: Supervision, Verbal Cues, Contact Guard Comment: RW - Ambulation Level of Assistance: Supervision, Verbal Cues, Contact Guard Distance (ft.): 125 Assistive Devices: Rolling Walker Orthoses: n/a Comment: -level surface with RW with CS with intermittent CG. -much improved alignment but continues with some instances of wide base of support. - intermittent CG for stability and posterior loss of balance - Stair Negotiation Stairs: Level of Assistance: Supervision, Verbal Cues, Contact Guard Stairs: Assistive Devices: Left Handrail, Right Handrail Comment: 1 flight 8 inch steps. -CS with step to pattern leading with RLE on ascent and LLE on descent. -intermittent CG on descent for control. -much improved trunk control and motion noted during negotiation of steps. -able to ambulate to/from stairs with RW - Standing Balance Static Stand: Supervision Dynamic Stand: Contact Guard Assist, Minimal Assistance - Pain Pain (assessed during therapy session): 0 Management Techniques: Medication Comment: denies pain - Insight/Carryover Insight/Carryover: Good - Patient/Family Education Comment: -caregiver training completed with pt's friend Mandi and her daughter Eli. -caregiver training with her to be completed with her on 10/18 - Assessment/Plan Assessment: Pt is a 47 year old female with dx: acute CVA. Precautions: falls(w /c alarm), cardiac. Pt presents with trunk instability/impaired postural control, impaired LUE strength, coordination, endurance, impaired standing balance/tolerance during adl impacting her ability to complete her self care routine safely and effectively . Pt will continue to benefit from skilled OT to address above impiraments assessment for safe transition home with supervision/proper DMES. --commode, RW, and shower chair and fit according to pt's appropriate height and comfort. *Goal: Mod I for adls, transfers/mobility with assistive devices & adaptive/compensatory strategies. [ End ] - Goals Timeframe: 7 days Goals: *Goal: Mod I for adls, transfers/mobility with assistive devices & adaptive/compensatory strategies - Provider License Number: [id number] Occupational Therapy - Arousal/Attention/Orientation Patient Orientation: Person, Place, Time, Appropriate to Age, Appropriate to Situation - ADL/IADL Self Feeding: Independent, Set-up Help Grooming: Supervision, Set-up Help Bathing-Upper Extremity: Supervision, Verbal Cues, Set-up Help Bathing-Lower Extremity: Supervision, Verbal Cues, Set-up Help, Contact Guard Dressing-Upper Extremity: Verbal Cues, Set-up Help Dressing-Lower Extremity: Verbal Cues, Set-up Help, Contact Guard Comment: shower seated with hand held shower - Sitting Balance Static Sitting: Independent without upper extremity support Dynamic Sitting: Reaches across midline, Reaches out of base of support, Requires supervision - Transfers Wheelchair to Bed Transfers: Verbal Cues, Set-up Help, Contact Guard Toilet Transfers: Verbal Cues, Set-up Help, Contact Guard Comment: shower transfers: cga and verbal cues - Upper Extremity Status Right Upper Extremity Comment: AROM is WNLs; 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 -caregiver training with her to be completed with her on 10/18 - Assessment/Plan Assessment: Pt is a 47 year old female with dx: acute CVA. Precautions: falls(w /c alarm), cardiac. Pt presents with trunk instability/impaired postural control, impaired LUE strength, coordination, endurance, impaired standing balance/tolerance during adl impacting her ability to complete her self care routine safely and effectively . Pt will continue to benefit from skilled OT to address above impiraments assessment for safe transition home with supervision/proper DMES. --commode, RW, and shower chair and fit according to pt's appropriate height and comfort. *Goal: Mod I for adls, transfers/mobility with assistive devices & adaptive/compensatory strategies. [ End ] - Goals Timeframe: 7 days Goals: *Goal: Mod I for adls, transfers/mobility with assistive devices & adaptive/compensatory strategies - Provider Therapist: job Speech Therapy - Plan Assessment: Pt is a 47 year old female with dx: acute CVA. Precautions: falls(w /c alarm), cardiac. Pt presents with trunk instability/impaired postural control, impaired LUE strength, coordination, endurance, impaired standing balance/tolerance during adl impacting her ability to complete her self care routine safely and effectively . Pt will continue to benefit from skilled OT to address above impiraments assessment for safe transition home with supervision/proper DMES. --commode, RW, and shower chair and fit according to pt's appropriate height and comfort. *Goal: Mod I for adls, transfers/mobility with assistive devices & adaptive/compensatory strategies. [ End ] Recreational Therapy - Participation Participation: Participates in Individual and/or Group Sessions, Monitors His/ Her Own Leisure Time - Attendance Attendance: 3-5 times per week - Activities Leisure Activities: Socializing - Socialization Level of Socialization: Initiates/interacts freely with care givers and peer - Diversional Time Diversional Time: socializing with family and guests, watching television - Assessment Assessment/Plan: Pt is a 47 year old female with dx: acute CVA. Precautions: falls(w/c alarm), cardiac. Pt presents with trunk instability/impaired postural control, impaired LUE strength, coordination, endurance, impaired standing balance/tolerance during adl impacting her ability to complete her self care routine safely and effectively . Pt will continue to benefit from skilled OT to address above impiraments assessment for safe transition home with supervision/proper DMES. --commode, RW, and shower chair and fit according to pt's appropriate height and comfort. *Goal: Mod I for adls, transfers/mobility with assistive devices & adaptive/compensatory strategies. [ End ] - Provider Therapist: Naz Palafox, VICE PRESIDENT [employer] #[id number] Nutrition - Current Diet Current Diet/ Supplement/ Feedings: Heart healthy soft diet - Appetite Percent Meal Consumed: 75-100% - Comments Comments: Safety, fall, post cva care, medication teaching - Assessment/Goals/Time Frame Assessment/Goals/Time Frame: with episode of dizziness during therapy v/s stable relieved with rest also eyes bothers her and being in the dark helps on antibiotic therapy for uti - Provider Provider: Rox Manning RD Case Management - Psychosocial Assessment Support Systems: Song Sheldon (spouse)- [phone] Psychological Interventions/Needs: Patient is alert and oriented x3 and able to verbalize needs. Patient is cooperative and motivated for therapy. Patient/Family Meeting: CM met with patient and rehab team Intervention/Goal/Outcome:: 1.Goal: Modified independence overall. 2. Plan: Home with VNS. 3. caregiver training to be arranged with spouse. 4. DME needs. 5. f/u appts. 6. continued stay auth, LAD: 10/03, udpates to be faxed at that time.. 7. continued emotional support - Discharge Plan Discharge Plan: Home with significant other/family - Provider Provider: MIRIAM Lazo, TECHNOLOGY ARCHITECT License Number: [id number] Rehabilitation Plan - Treatment Plan Treatment Plan: Physical Therapy, Occupational Therapy, Dietary, Patient/Family Education - Recommendation Recommendation: Physical Therapy, Occupational Therapy, Dietary, Patient/Family Education - Discharge Plan Discharge to: Home (dc 6)
--- NOTE | 2017-10-16 15:38 | PN ---
DATE: PHYSIATRY PROGRESS NOTE Progress note for Dr. Miller. SUBJECTIVE: The patient is doing fine. No acute complaints at present. PHYSICAL EXAMINATION: VITAL SIGNS: Stable. NECK: Supple. CHEST: Symmetrical. HEART: Sounds S1 and S2. ABDOMEN: Abdominal area is benign. EXTREMITIES: No clubbing, cyanosis or edema. The patient's discharge discussed, status post team conference for 08/21. Family training for the patient as well. Again, This Dr. Singletary covering for Dr. Miller. Hayes MD [place]
[2017-10-17] MEDS: Sucralfate 1 gm/10 ml Oral Susp UD PO SCH ×4 (08:24→21:25)
--- NOTE | 2017-10-17 08:45 | CP.PCM.PN ---
Subjective - Date & Time of Evaluation Date of Evaluation: 10/17/17 Time of Evaluation: 08:43 - Subjective Subjective: Ms. Kleber Sheldon was seen and examined at the bedside. She is alert, oriented in all spheres. She denies any headache, dizziness, diplopia,. She is able to raise her left arm above her head. She claims of experiencing nape pain due to her pillows which was brought in from home by her . Tylenol was given with relief. She further claims of feeling better with each therapy session. She further states of seeing better, getting excited of being discharge this coming Sunday. There was no untoward events overnight. Objective - Vital Signs/Intake and Output Vital Signs (last 24 hours): Temp Pulse Resp BP Pulse Ox 97.9 F 99 H 20 130/65 97 10/17/17 05:10 10/17/17 08:29 10/17/17 05:10 10/17/17 08:29 10/17/17 05:10 - Medications Medications: Current Medications Acetaminophen (Tylenol 325mg Tab) 650 mg PO Q4 PRN PRN Reason: Pain Scale 4-10. Last Admin: 10/17/17 05:10 Dose: 650 mg Atorvastatin Calcium (Lipitor) 20 mg PO HS [facility] Last Admin: 10/16/17 21:02 Dose: 20 mg Chlorpromazine (Thorazine) 25 mg PO Q6 PRN PRN Reason: Hiccups Last Admin: 10/03/17 21:11 Dose: 25 mg Ciprofloxacin (Cipro) 500 mg PO Q12 [facility] PRN Reason: Protocol Last Admin: 10/17/17 08:25 Dose: 500 mg Clopidogrel Bisulfate (Plavix) 75 mg PO DAILY [facility] Last Admin: 10/17/17 08:29 Dose: 75 mg Dabigatran (Pradaxa) 150 mg PO BID [facility] PRN Reason: Protocol Last Admin: 10/17/17 08:30 Dose: 150 mg Docusate Sodium (Colace) 100 mg PO BID [facility] Last Admin: 10/17/17 08:28 Dose: 100 mg Famotidine (Pepcid) 20 mg PO Q12 [facility] Last Admin: 10/17/17 08:34 Dose: 20 mg Ferrous Sulfate (Feosol) 325 mg PO DAILY [facility] Last Admin: 10/17/17 08:28 Dose: 325 mg Fluconazole (Diflucan) 100 mg PO DAILY [facility] PRN Reason: Protocol Last Admin: 10/17/17 08:28 Dose: 100 mg Lactulose (Enulose) 20 gm PO DAILY PRN PRN Reason: Constipation Last Admin: 10/01/17 21:19 Dose: 20 gm Meclizine HCl (Antivert) 25 mg PO TID [facility] Last Admin: 10/17/17 08:24 Dose: 25 mg Metoprolol Tartrate (Lopressor) 12.5 mg PO Q12 [facility] Last Admin: 10/17/17 08:29 Dose: 12.5 mg Phenylephrine HCl (Phenylephrine Opht 2.5% Soln) 1 drop OU .EVERY 1 MINUTE [facility] Last Admin: 10/12/17 05:04 Dose: 1 drop Sodium Chloride ([place] Nasal [place]) 2 sprays PRABHAKAR Q4 PRN PRN Reason: Nasal congestion Last Admin: 10/06/17 08:14 Dose: 1 spr Sodium Phosphate (Fleet Enema) 135 ml [place] DAILY PRN PRN Reason: Constipation Last Admin: 10/01/17 22:23 Dose: 135 ml Sucralfate (Carafate Oral Susp) 1 gm PO QID [facility] Last Admin: 10/17/17 08:24 Dose: 1 gm Topiramate (Topamax) 50 mg PO Q12 [facility] Last Admin: 10/17/17 08:30 Dose: 50 mg Tropicamide (Mydriacyl 1% Opht Soln 15ml) 1 drop OU .EVERY 1 MINUTE [facility] Last Admin: 10/12/17 05:09 Dose: 1 drop - Labs Labs: 10/15/17 17:45 10/15/17 17:45 - Constitutional Appears: No Acute Distress - Head Exam Head Exam: NORMAL INSPECTION - Neurological Exam Neurological Exam: Alert, Awake, Oriented x3 Neuro motor strength exam: Left Upper Extremity: 4, Right Upper Extremity: 5, Left Lower Extremity: 5, Right Lower Extremity: 5 Additional comments: Neurological unchanged from previous examination. Assessment and Plan (1) CVA (cerebral vascular accident) Assessment & Plan: Case discussed with Dr. Starr, continue all current medical, physical, and occupational therapies. Recommend to follow up with a neurologist upon discharge 2 weeks. If patient would like to follow up with / Gavi/ Matty at [address] [place] [address] [id number] [id number]. Tel. # [phone]. Status: Acute
--- NOTE | 2017-10-17 11:37 | CP.PCM.CON ---
History of Present Illness - History of Present Illness History of Present Illness: Infectious disease Consultation Note- asked to see this patient at the request of for leukocytosis. HPI- Patient is a 47 year old female with as per pt. no PMH except hiatal hernia who was brought in for stroke by the ambulance on 09/21/2017. pt. was found to have acute CVA , MRI brain had reported stable infarct in the L Parietal lobe. New moderate to large acute infarct in the L medial cerebellum and L medulla. 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 On 10/01/17, medical condition was stable and PT was transferred to Acute Rehab Unit, [facility], to be Tx for mobility, gait and coordination impairment. I'm asked to see the patient now because eventhough her decadron which she has been on as per neurologist for her acute stroke is being tapered she still has high wbc . as per her nurse she has also been on cipro for UTI . Pt. denies any fever or chills, denies any nausea or vomiting, denies any cough or sob, denies any chest pain, denies any diarrhea, denies any dysurea. Review of Systems - Review of Systems Review of Systems: ROS- denies any fever or chills, denies any WRIGHT, denies any cough, denies any sob, denies any chest pain, states always has some mid-epigastric pain from her hiatal hernia, denies any nausea or vomiting denies any diarrhea denies any dysurea Past Patient History - Past Medical History & Family History Past Medical History?: Yes - Past Social History Smoking Status: Never Smoked Alcohol: Occasional Drugs: Denies Home Situation {Lives}: With Family (few entry steps) - CARDIAC Hx Cardiac Disorders: Yes (SEVERE SINUS BRADYCARDIA PRESENTLY BEING EVALUATED BY PCP) - PULMONARY Hx Respiratory Disorders: No - NEUROLOGICAL Hx Migraine: Yes - HEENT Hx Epistaxis: Yes - RENAL Hx Chronic Kidney Disease: No - ENDOCRINE/METABOLIC Hx Endocrine Disorders: No - HEMATOLOGICAL/ONCOLOGICAL Hx Anemia: Yes - INTEGUMENTARY Hx Dermatological Problems: No - MUSCULOSKELETAL/RHEUMATOLOGICAL Hx Falls: No - GASTROINTESTINAL Hx Gastrointestinal Disorders: Yes Hx Ulcer: Yes - GENITOURINARY/GYNECOLOGICAL Hx Genitourinary Disorders: No - PSYCHIATRIC Hx Psychophysiologic Disorder: No Hx Substance Use: No - SURGICAL HISTORY Hx Surgeries: Yes Hx Tubal Ligation: Yes - ANESTHESIA Hx Anesthesia: Yes Hx Anesthesia Reactions: No Hx Malignant Hyperthermia: No Meds Allergies/Adverse Reactions: Allergies Allergy/AdvReac Type Severity Reaction Status Date / Time eggplant Allergy NAUSEA Uncoded 10/01/17 12:40 - Medications Medications: Current Medications Acetaminophen (Tylenol 325mg Tab) 650 mg PO Q4 PRN PRN Reason: Pain Scale 4-10. Last Admin: 10/17/17 05:10 Dose: 650 mg Atorvastatin Calcium (Lipitor) 20 mg PO HS [facility] Last Admin: 10/16/17 21:02 Dose: 20 mg Chlorpromazine (Thorazine) 25 mg PO Q6 PRN PRN Reason: Hiccups Last Admin: 10/03/17 21:11 Dose: 25 mg Ciprofloxacin (Cipro) 500 mg PO Q12 [facility] PRN Reason: Protocol Last Admin: 10/17/17 08:25 Dose: 500 mg Clopidogrel Bisulfate (Plavix) 75 mg PO DAILY [facility] Last Admin: 10/17/17 08:29 Dose: 75 mg Dabigatran (Pradaxa) 150 mg PO BID [facility] PRN Reason: Protocol Last Admin: 10/17/17 08:30 Dose: 150 mg Docusate Sodium (Colace) 100 mg PO BID [facility] Last Admin: 10/17/17 08:28 Dose: 100 mg Famotidine (Pepcid) 20 mg PO Q12 [facility] Last Admin: 10/17/17 08:34 Dose: 20 mg Ferrous Sulfate (Feosol) 325 mg PO DAILY [facility] Last Admin: 10/17/17 08:28 Dose: 325 mg Lactulose (Enulose) 20 gm PO DAILY PRN PRN Reason: Constipation Last Admin: 10/01/17 21:19 Dose: 20 gm Meclizine HCl (Antivert) 25 mg PO TID [facility] Last Admin: 10/17/17 08:24 Dose: 25 mg Metoprolol Tartrate (Lopressor) 12.5 mg PO Q12 [facility] Last Admin: 10/17/17 08:29 Dose: 12.5 mg Phenylephrine HCl (Phenylephrine Opht 2.5% Soln) 1 drop OU .EVERY 1 MINUTE [facility] Last Admin: 10/12/17 05:04 Dose: 1 drop Sodium Chloride ([place] Nasal [place]) 2 sprays PRABHAKAR Q4 PRN PRN Reason: Nasal congestion Last Admin: 10/06/17 08:14 Dose: 1 spr Sodium Phosphate (Fleet Enema) 135 ml [place] DAILY PRN PRN Reason: Constipation Last Admin: 10/01/17 22:23 Dose: 135 ml Sucralfate (Carafate Oral Susp) 1 gm PO QID [facility] Last Admin: 10/17/17 08:24 Dose: 1 gm Topiramate (Topamax) 50 mg PO Q12 [facility] Last Admin: 10/17/17 08:30 Dose: 50 mg Tropicamide (Mydriacyl 1% Opht Soln 15ml) 1 drop OU .EVERY 1 MINUTE [facility] Last Admin: 10/12/17 05:09 Dose: 1 drop Physical Exam - Constitutional Appears: No Acute Distress - Head Exam Head Exam: ATRAUMATIC - ENT Exam ENT Exam: Normal Oropharynx Additional comments: 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 and one in the left nostril region - Neck Exam Neck exam: Positive for: Full Rom Additional comments: supple - Respiratory Exam Respiratory Exam: Clear to Auscultation Bilateral, NORMAL BREATHING PATTERN - Cardiovascular Exam Cardiovascular Exam: RRR, +S1, +S2 - GI/Abdominal Exam GI & Abdominal Exam: Normal Bowel Sounds, Soft Additional comments: Minimal tendernss in midepigastric region with palpation, + BS soft no guarding, no rebound - Extremities Exam Additional comments: no edema B/L LE - Neurological Exam Neurological exam: Alert, Oriented x3 Additional comments: weakness in LUE Results - Vital Signs Recent Vital Signs: Last Vital Signs Temp 97.9 F 10/17/17 08:49 Pulse 99 H 10/17/17 08:49 Resp 18 10/17/17 08:49 BP 130/95 H 10/17/17 08:49 Pulse Ox 96 10/17/17 08:49 - Labs Result Diagrams: 10/15/17 17:45 10/15/17 17:45 Labs: Laboratory Results - last 72 hr 10/15/17 10/15/17 10/16/17 17:45 17:45 12:38 WBC 23.1 H RBC 4.30 Hgb 10.1 L Hct 31.8 L MCV 74.0 L MCH 23.4 L MCHC 31.6 L RDW 26.7 H Plt Count 692 H Sodium 142 Potassium 3.8 Chloride 104 Carbon Dioxide 19 L Anion Gap 23 H BUN 17 Creatinine 1.0 Est GFR ( Amer) > 60 Est GFR (Non-Af Amer) 59 Random Glucose 150 H Calcium 9.2 Urine Color Yellow Urine Clarity Slighty-cloudy Urine pH 6.0 Ur Specific [place] 1.021 Urine Protein Negative Urine Glucose (UA) Neg Urine Ketones Negative Urine Blood Negative Urine Nitrate Negative Urine Bilirubin Negative Urine Urobilinogen 0.2-1.0 Ur Leukocyte Esterase Neg Urine RBC (Auto) 2 Urine Microscopic WBC 2 Ur Squamous Epith Cells 1 Urine Bacteria Rare Microbiology 10/08/17 05:25 Blood S.aureus & Coag-Neg Staph PNA FISH - Final 10/08/17 05:25 Blood Blood Culture - Final Staphylococcus Aureus 10/08/17 05:25 Blood Gram Stain - Final 10/07/17 19:05 Urine,Clean Catch Urine Culture - Final Enterococcus Faecalis Microbiology 10/08/17 05:25 Blood S.aureus & Coag-Neg Staph PNA FISH - Final 10/08/17 05:25 Blood Gram Stain - Final Staphylococcus Aureus 10/07/17 19:05 Urine,Clean Catch Urine Culture - Final Enterococcus Faecalis Accession No. : [id number] Patient Name / ID : STEPHANIE MISTRY / [id number] Exam Date : 10/08/2017 08:23:26 ( Approved ) Study Comment : Sex / Age : F / 47Y Creator : Norberto Londono MD Dictator : Norberto Londono MD Meter Shop Superintendent : Industrial Economist : Norberto Londono MD Approver2 : Report Date : 10/08/2017 09:42:37 My Comment : PROCEDURE: CT HEAD WITHOUT CONTRAST. HISTORY: follow of CVA COMPARISON: Unenhanced head CT 10/01/2017. TECHNIQUE: Axial computed tomography images were obtained through the head/brain without intravenous contrast. Radiation dose: Total exam DLP = 818.50 mGy-cm. This CT exam was performed using one or more of the following dose reduction techniques: Automated exposure control, adjustment of the mA and/or kV according to patient size, and/or use of iterative reconstruction technique. FINDINGS: HEMORRHAGE: No intracranial hemorrhage. BRAIN: Trace lucency suggests the medial inferior left cerebellum with no significant mass effect. Remaining brain parenchyma above below the tentorium including the brainstem is unremarkable. No suspicious extra-axial collection. VENTRICLES: Unremarkable. No hydrocephalus. CALVARIUM: Unremarkable. PARANASAL SINUSES: Unremarkable as visualized. No significant inflammatory changes. MASTOID AIR CELLS: Unremarkable as visualized. No inflammatory changes. OTHER FINDINGS: None. IMPRESSION: Trace residual edema medial left cerebellum inferiorly, representing early chronic infarction. Clinically correlate. Remainder of the brain is unremarkable. Accession No. : [id number] Patient Name / ID : STEPHANIE MISTRY / [id number] Exam Date : 10/03/2017 08:29:34 ( Approved ) Study Comment : Sex / Age : F / 47Y Creator : larry otero Dictator : Norberto Londono MD Meter Shop Superintendent : Industrial Economist : Norberto Londono MD Approver2 : Report Date : 10/03/2017 08:50:00 My Comment : PROCEDURE: CT NECK AND CHEST WITH CONTRAST HISTORY: access progression of subclavian thrombus COMPARISON: Thoracic correlation is made with prior chest CT 11/29/2015 with limited neck correlation with prior CTA of the head and neck 09/21/2017. TECHNIQUE: A CT examination of the neck and chest was performed from the skullbase to the diaphragms with reformatted datasets provided in sagittal axial coronal planes separately for the neck and chest. Intravenous contrast was administered as defined below. Contrast Dose: Omnipaque 300, 100 cc Radiation dose:Total exam DLP = 977.83 mGy-cm. This CT exam was performed using one or more of the following dose reduction techniques: Automated exposure control, adjustment of the mA and/or kV according to patient size, and/or use of iterative reconstruction technique. FINDINGS: NECK: The distal left vertebral artery remains under opacified and therefore remains either occluded segmentally (firm whenever causes be it thrombus, dissection or other etiologies) or could be markedly hypoplastic. The latter is not favored. Robust opacification remains at the basilar artery as imaged in this exam as well as the distal right vertebral artery. There is residual thrombus identified at the medial side of the proximal left subclavian artery. The borders of thrombus are less well defined. Follow-up CT is recommended. The bilateral carotid arterial systems remain widely patent as well as the right subclavian artery. No significant mass is identified in the supra or infrahyoid neck of the salivary glands and the thyroid gland grossly nonfocal in appearance. The pharynx, oral cavity, larynx and thoracic inlet are unremarkable exclusive of the left subclavian artery thrombus and there is no suspicious lymphadenopathy. Note, dental hardware generates artifact obscuring the anterior to mid oral cavity somewhat. CHEST: There is no infiltrate, central airway or parenchymal lesion appreciable. There is no pneumothorax or significant lymphadenopathy. The thoracic inlet is unremarkable exclusive of left subclavian arterial thrombus. The thoracic aorta and main pulmonary artery segment appear unremarkable. Cardiac size is normal a limited images are better reflects probable hepatic steatosis diffusely and a linear radiodensity in the stomach which is partially distended with retained food. IMPRESSION: Likely diminished thrombus in the proximal left subclavian artery. There is persistent lack of opacification of the distal left vertebral artery suggesting occlusion though there is still a possibility there is segmental hypoplasia. Future imaging of the left subclavian artery should be performed via CT angiogram of the neck or of the arch of the aorta as standard CT of the neck or chest does not maximize opacification of the great arteries. Assessment & Plan (1) Elevated WBC count Status: Acute (2) Acute CVA (cerebrovascular accident) Status: Acute Priority: High (3) Coagulopathy Status: Acute (4) Parietal lobe infarction Status: Acute Priority: High - Assessment and Plan (Free Text) Assessment: A/P- 47 year old female with recent acute CVA with persistent wbc elevations despite steroid taper. afebrile leukocytosis persistent with left shift blood cx- MSSA x 1 10/08/2017 urine cx- E.Fecalis from 10/07/2017 UA- negative nitrate , trace LE Plan- check repeat blood cx x 2. check TTE r/o any vegetations. start Iv vancomycin in the interim to treat the MSSA in the blood cx from 2017 pending repeat blood cx results. d/c cipro. check repeat UA and urine cx. keep vanco trough <20. advise to apply zovirax ointment to the left nares and left upper lip region. also advise po acyclovir or valtrex for few days for the herpes labialis . all above d/w patient at length and she verbalizes full understanding of all above and agrees with above plan of care. case also d/w . Thank you for allowing me to take part in the care of this patient.
--- NOTE | 2017-10-17 12:42 | CP.PCM.PN ---
Subjective - Date & Time of Evaluation Date of Evaluation: 10/17/17 Time of Evaluation: 08:30 - Subjective Subjective: no acute complaints at present Objective - Vital Signs/Intake and Output Vital Signs (last 24 hours): Temp Pulse Resp BP Pulse Ox 97.9 F 99 H 18 130/95 H 96 10/17/17 08:49 10/17/17 08:49 10/17/17 08:49 10/17/17 08:49 10/17/17 08:49 - Medications Medications: Current Medications Acetaminophen (Tylenol 325mg Tab) 650 mg PO Q4 PRN PRN Reason: Pain Scale 4-10. Last Admin: 10/17/17 05:10 Dose: 650 mg Atorvastatin Calcium (Lipitor) 20 mg PO HS [facility] Last Admin: 10/16/17 21:02 Dose: 20 mg Chlorpromazine (Thorazine) 25 mg PO Q6 PRN PRN Reason: Hiccups Last Admin: 10/03/17 21:11 Dose: 25 mg Ciprofloxacin (Cipro) 500 mg PO Q12 [facility] PRN Reason: Protocol Last Admin: 10/17/17 08:25 Dose: 500 mg Clopidogrel Bisulfate (Plavix) 75 mg PO DAILY [facility] Last Admin: 10/17/17 08:29 Dose: 75 mg Dabigatran (Pradaxa) 150 mg PO BID [facility] PRN Reason: Protocol Last Admin: 10/17/17 08:30 Dose: 150 mg Docusate Sodium (Colace) 100 mg PO BID [facility] Last Admin: 10/17/17 08:28 Dose: 100 mg Famotidine (Pepcid) 20 mg PO Q12 [facility] Last Admin: 10/17/17 08:34 Dose: 20 mg Ferrous Sulfate (Feosol) 325 mg PO DAILY [facility] Last Admin: 10/17/17 08:28 Dose: 325 mg Lactulose (Enulose) 20 gm PO DAILY [facility]N PRN Reason: Constipation Last Admin: 10/01/17 21:19 Dose: 20 gm Meclizine HCl (Antivert) 25 mg PO TID [facility] Last Admin: 10/17/17 12:23 Dose: 25 mg Metoprolol Tartrate (Lopressor) 12.5 mg PO Q12 [facility] Last Admin: 10/17/17 08:29 Dose: 12.5 mg Phenylephrine HCl (Phenylephrine Opht 2.5% Soln) 1 drop OU .EVERY 1 MINUTE [facility] Last Admin: 10/12/17 05:04 Dose: 1 drop Sodium Chloride ([place] Nasal [place]) 2 sprays PRABHAKAR Q4 PRN PRN Reason: Nasal congestion Last Admin: 10/06/17 08:14 Dose: 1 spr Sodium Phosphate (Fleet Enema) 135 ml [place] DAILY PRN PRN Reason: Constipation Last Admin: 10/01/17 22:23 Dose: 135 ml Sucralfate (Carafate Oral Susp) 1 gm PO QID [facility] Last Admin: 10/17/17 12:23 Dose: 1 gm Topiramate (Topamax) 50 mg PO Q12 [facility] Last Admin: 10/17/17 08:30 Dose: 50 mg Tropicamide (Mydriacyl 1% Opht Soln 15ml) 1 drop OU .EVERY 1 MINUTE [facility] Last Admin: 10/12/17 05:09 Dose: 1 drop - Labs Labs: 10/15/17 17:45 10/15/17 17:45 - Head Exam Head Exam: ATRAUMATIC, NORMAL INSPECTION, NORMOCEPHALIC - Eye Exam Eye Exam: EOMI, Normal appearance, PERRL Pupil Exam: NORMAL ACCOMODATION - ENT Exam ENT Exam: Mucous Membranes Moist, Normal Exam - Neck Exam Neck Exam: Full ROM, Normal Inspection - Respiratory Exam Respiratory Exam: NORMAL BREATHING PATTERN - Cardiovascular Exam Cardiovascular Exam: REGULAR RHYTHM - GI/Abdominal Exam GI & Abdominal Exam: Soft, Normal Bowel Sounds - Rectal Exam Rectal Exam: NORMAL INSPECTION - Exam External exam: NORMAL EXTERNAL EXAM - Extremities Exam Extremities Exam: Full ROM, Normal Capillary Refill - Back Exam Back Exam: NORMAL INSPECTION - Neurological Exam Neurological Exam: Alert, Awake Neuro motor strength exam: Left Upper Extremity: 3, Left Lower Extremity: 3 - Psychiatric Exam Psychiatric exam: Normal Affect, Normal Mood - Skin Skin Exam: Dry, Intact Assessment and Plan (1) 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
[2017-10-17 13:14] LABS: SQUAMOUS EPITHIAL 1 /hpf (0-5); URINE BACTERIA RARE (<OCC); URINE BILIRUBIN NEGATIVE (NEGATIVE); URINE BLOOD NEGATIVE (NEGATIVE); URINE CLARITY SLIGHTY-CLOUDY (Clear); URINE COLOR YELLOW (YELLOW); URINE GLUCOSE (UA) NEG (Normal); URINE LEUKOCYTE ESTERASE NEG Leu/uL (Negative); URINE PROTEIN NEGATIVE (NEGATIVE); URINE UROBILINOGEN 0.2-1.0 mg/dL (0.2-1.0)
--- NOTE | 2017-10-17 13:44 | CP.PCM.PN ---
Subjective - Date & Time of Evaluation Date of Evaluation: 10/17/17 Time of Evaluation: 13:00 - Subjective Subjective: blurred vision L Eye Objective - Vital Signs/Intake and Output Vital Signs (last 24 hours): Temp Pulse Resp BP Pulse Ox 97.9 F 99 H 18 130/95 H 96 10/17/17 08:49 10/17/17 08:49 10/17/17 08:49 10/17/17 08:49 10/17/17 08:49 - Medications Medications: Current Medications Acetaminophen (Tylenol 325mg Tab) 650 mg PO Q4 PRN PRN Reason: Pain Scale 4-10. Last Admin: 10/17/17 05:10 Dose: 650 mg Atorvastatin Calcium (Lipitor) 20 mg PO HS [facility] Last Admin: 10/16/17 21:02 Dose: 20 mg Chlorpromazine (Thorazine) 25 mg PO Q6 PRN PRN Reason: Hiccups Last Admin: 10/03/17 21:11 Dose: 25 mg Ciprofloxacin (Cipro) 500 mg PO Q12 [facility] PRN Reason: Protocol Last Admin: 10/17/17 08:25 Dose: 500 mg Clopidogrel Bisulfate (Plavix) 75 mg PO DAILY [facility] Last Admin: 10/17/17 08:29 Dose: 75 mg Dabigatran (Pradaxa) 150 mg PO BID [facility] PRN Reason: Protocol Last Admin: 10/17/17 08:30 Dose: 150 mg Docusate Sodium (Colace) 100 mg PO BID [facility] Last Admin: 10/17/17 08:28 Dose: 100 mg Famotidine (Pepcid) 20 mg PO Q12 [facility] Last Admin: 10/17/17 08:34 Dose: 20 mg Ferrous Sulfate (Feosol) 325 mg PO DAILY [facility] Last Admin: 10/17/17 08:28 Dose: 325 mg Lactulose (Enulose) 20 gm PO DAILY PRN PRN Reason: Constipation Last Admin: 10/01/17 21:19 Dose: 20 gm Meclizine HCl (Antivert) 25 mg PO TID [facility] Last Admin: 10/17/17 12:23 Dose: 25 mg Metoprolol Tartrate (Lopressor) 12.5 mg PO Q12 [facility] Last Admin: 10/17/17 08:29 Dose: 12.5 mg Phenylephrine HCl (Phenylephrine Opht 2.5% Soln) 1 drop OU .EVERY 1 MINUTE [facility] Last Admin: 10/12/17 05:04 Dose: 1 drop Sodium Chloride ([place] Nasal [place]) 2 sprays PRABHAKAR Q4 PRN PRN Reason: Nasal congestion Last Admin: 10/06/17 08:14 Dose: 1 spr Sodium Phosphate (Fleet Enema) 135 ml [place] DAILY PRN PRN Reason: Constipation Last Admin: 10/01/17 22:23 Dose: 135 ml Sucralfate (Carafate Oral Susp) 1 gm PO QID [facility] Last Admin: 10/17/17 12:23 Dose: 1 gm Topiramate (Topamax) 50 mg PO Q12 [facility] Last Admin: 10/17/17 08:30 Dose: 50 mg Tropicamide (Mydriacyl 1% Opht Soln 15ml) 1 drop OU .EVERY 1 MINUTE [facility] Last Admin: 10/12/17 05:09 Dose: 1 drop - Labs Labs: 10/15/17 17:45 10/15/17 17:45 - Constitutional Appears: No Acute Distress - Head Exam Head Exam: NORMAL INSPECTION - Eye Exam Eye Exam: PERRL - ENT Exam ENT Exam: Normal Exam Additional comments: lip lesion - Neck Exam Neck Exam: Normal Inspection - Respiratory Exam Respiratory Exam: NORMAL BREATHING PATTERN - Cardiovascular Exam Cardiovascular Exam: REGULAR RHYTHM - GI/Abdominal Exam GI & Abdominal Exam: Soft, Normal Bowel Sounds - Extremities Exam Extremities Exam: Normal Inspection - Back Exam Back Exam: NORMAL INSPECTION - Neurological Exam Neurological Exam: Alert, Oriented x3 Additional comments: able to lift LUE above the shoulder - Skin Skin Exam: Warm Assessment and Plan (1) Acute CVA (cerebrovascular accident) Status: Acute (2) New infarction of cerebellum Status: Acute (3) Vertebral artery occlusion Status: Acute (4) Parietal lobe infarction Status: Acute (5) Subclavian artery thrombosis Status: Acute (6) Anemia Status: Chronic (7) Elevated WBC count Status: Acute - Assessment and Plan (Free Text) Plan: Persistant leukocytosis ,Decadron was tapered down and DC , f/u blood C-S , U /A , U C-S , f/u ID consult.
[2017-10-17] MEDS: Acyclovir 5% OINT 15 APPLIC/15 GM EXT SCH ×3 (16:47→21:47)
--- NOTE | 2017-10-17 23:16 | CP.PCM.PN ---
Subjective - Date & Time of Evaluation Date of Evaluation: 10/17/17 Time of Evaluation: 12:15 - Subjective Subjective: Has some neck pain. Objective - Vital Signs/Intake and Output Vital Signs (last 24 hours): Temp Pulse Resp BP Pulse Ox 97.9 F 81 22 126/69 98 10/17/17 08:49 10/17/17 20:06 10/17/17 20:00 10/17/17 20:06 10/17/17 20:00 - Medications Medications: Current Medications Acetaminophen (Tylenol 325mg Tab) 650 mg PO Q4 PRN PRN Reason: Pain Scale 4-10. Last Admin: 10/17/17 05:10 Dose: 650 mg Acyclovir (Zovirax 5% Oint) 1 applic EXT Q3 [facility] Last Admin: 10/17/17 21:47 Dose: 1 applic Atorvastatin Calcium (Lipitor) 20 mg PO HS [facility] Last Admin: 10/17/17 21:25 Dose: 20 mg Chlorpromazine (Thorazine) 25 mg PO Q6 PRN PRN Reason: Hiccups Last Admin: 10/03/17 21:11 Dose: 25 mg Ciprofloxacin (Cipro) 500 mg PO Q12 [facility] PRN Reason: Protocol Last Admin: 10/17/17 20:05 Dose: 500 mg Clopidogrel Bisulfate (Plavix) 75 mg PO DAILY [facility] Last Admin: 10/17/17 08:29 Dose: 75 mg Dabigatran (Pradaxa) 150 mg PO BID [facility] PRN Reason: Protocol Last Admin: 10/17/17 16:47 Dose: 150 mg Docusate Sodium (Colace) 100 mg PO BID [facility] Last Admin: 10/17/17 16:47 Dose: 100 mg Famotidine (Pepcid) 20 mg PO Q12 [facility] Last Admin: 10/17/17 20:06 Dose: 20 mg Ferrous Sulfate (Feosol) 325 mg PO DAILY [facility] Last Admin: 10/17/17 08:28 Dose: 325 mg Vancomycin HCl 1 gm/ Sodium (Chloride) 250 mls @ 125 mls/hr IVPB Q12 [facility] PRN Reason: Protocol Last Admin: 10/17/17 20:06 Dose: 125 mls/hr Lactulose (Enulose) 20 gm PO DAILY PRN PRN Reason: Constipation Last Admin: 10/01/17 21:19 Dose: 20 gm Meclizine HCl (Antivert) 25 mg PO TID [facility] Last Admin: 10/17/17 16:46 Dose: 25 mg Metoprolol Tartrate (Lopressor) 12.5 mg PO Q12 [facility] Last Admin: 10/17/17 20:06 Dose: Not Given Phenylephrine HCl (Phenylephrine Opht 2.5% Soln) 1 drop OU .EVERY 1 MINUTE [facility] Last Admin: 10/12/17 05:04 Dose: 1 drop Sodium Chloride ([place] Nasal [place]) 2 sprays PRABHAKAR Q4 PRN PRN Reason: Nasal congestion Last Admin: 10/06/17 08:14 Dose: 1 spr Sodium Phosphate (Fleet Enema) [address] DAILY PRN PRN Reason: Constipation Last Admin: 10/01/17 22:23 Dose: 135 ml Sucralfate (Carafate Oral Susp) 1 gm PO QID [facility] Last Admin: 10/17/17 21:25 Dose: 1 gm Topiramate (Topamax) 50 mg PO Q12 [facility] Last Admin: 10/17/17 20:06 Dose: 50 mg Tropicamide (Mydriacyl 1% Opht Soln 15ml) 1 drop OU .EVERY 1 MINUTE [facility] Last Admin: 10/12/17 05:09 Dose: 1 drop - Labs Labs: 10/15/17 17:45 10/15/17 17:45 - Head Exam Head Exam: ATRAUMATIC - Eye Exam Eye Exam: Normal appearance - ENT Exam ENT Exam: Mucous Membranes Dry - Respiratory Exam Respiratory Exam: NORMAL BREATHING PATTERN - Cardiovascular Exam Cardiovascular Exam: +S1, +S2 - GI/Abdominal Exam GI & Abdominal Exam: Normal Bowel Sounds Assessment and Plan (1) Thrombocytosis Assessment & Plan: likely reactive from iron deficiency Status: Acute (2) Leukocytosis Assessment & Plan: on antibiotics may have reactive component Status: Acute (3) Anemia Assessment & Plan: iron deficiency on oral iron Status: Chronic (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
[2017-10-18] MEDS: Acyclovir 5% OINT 15 APPLIC/15 GM EXT SCH ×4 (01:30→11:00)
[2017-10-18] MEDS: Sucralfate 1 gm/10 ml Oral Susp UD PO SCH ×4 (08:22→21:33)
[2017-10-18] MEDS: Acyclovir 5% OINT 5 APPLIC/5 GM EXT SCH ×5 (12:09→21:33)
--- NOTE | 2017-10-18 12:35 | CARD ---
APPROVED REPORT EXAM: Two-dimensional and M-mode echocardiogram with Doppler and color Doppler. Other Information Quality : AverageRhythm : NSR INDICATION Infection:Subacute bacterial endocarditis 2D DIMENSIONS IVSd1.26 (0.7-1.1cm)LVDd3.02 (3.9-5.9cm) LVOT Diameter1.51 (1.8-2.4cm)PWd0.89 (0.7-1.1cm) IVSs1.28 (0.8-1.2cm)LVDs1.87 (2.5-4.0cm) FS (%) 38.1 %PWs1.97 (0.8-1.2cm) M-Mode DIMENSIONS Left Atrium (MM)2.73 (2.5-4.0cm)IVSd1.29 (0.7-1.1cm) Aortic Root2.83 (2.2-3.7cm)LVDd3.71 (4.0-5.6cm) Aortic Cusp Exc.1.78 (1.5-2.0cm)PWd1.18 (0.7-1.1cm) IVSs1.67 cmFS (%) 44 % LVDs2.08 (2.0-3.8cm)PWs1.21 cm Mitral Valve MV E Yxkhgckc97.0cm/sMV DECEL [id number] A Xyypqohd07.9cm/s MV HAF47axF/A ratio0.9MVA (PHT)4.11cm2 TDI Lateral E' Peak V11.41cm/sMedial E' Peak V7.58cm/sE/Lateral E'4.6 E/Medial E'7.0 LEFT VENTRICLE The left ventricle is normal size. There is normal left ventricular wall thickness. The left ventricular function is normal. The left ventricular ejection fraction is 60% There is normal LV segmental wall motion. The left ventricular diastolic function is normal. No left ventricle thrombus noted on this study. There is no ventricular septal defect visualized. There is no left ventricular aneurysm. There is no mass noted in the left ventricle. RIGHT VENTRICLE The right ventricle is normal size. There is normal right ventricular wall thickness. The right ventricular systolic function is normal. ATRIA The left atrium size is normal. The right atrium size is normal. The interatrial septum is intact with no evidence for an atrial septal defect. AORTIC VALVE The aortic valve is normal in structure. No aortic regurgitation is present. There is no aortic valvular stenosis. There is no aortic valvular vegetation. MITRAL VALVE The mitral valve is normal in structure. There is no evidence of mitral valve prolapse. There is no mitral valve stenosis. There is no mitral valve regurgitation noted. TRICUSPID VALVE The tricuspid valve is normal in structure. There is no tricuspid valve regurgitation noted. There is no tricuspid valve prolapse or vegetation. There is no tricuspid valve stenosis. PULMONIC VALVE The pulmonary valve is normal in structure. There is no pulmonic valvular regurgitation. There is no pulmonic valvular stenosis. GREAT VESSELS The aortic root is normal in size. The ascending aorta is normal in size. The IVC is normal in size and collapses >50% with inspiration. PERICARDIAL EFFUSION The pericardium appears normal. There is no pleural effusion. <Conclusion> Normal Echocardiogram
[2017-10-18 13:58] LABS: BASO % 0.3 % (0.0-2.0); EOS # 0.4 K/uL (0.0-0.7); EOS % 3.1 % (0.0-4.0); LYMPH # 2.2 K/uL (1.0-4.3); LYMPH % 17.1 % (20.0-40.0); MEAN CELL VOLUME 76.5 fl (81.0-99.0); MEAN CORPUSCULAR HEMOGLOBIN 23.8 pg (27.0-31.0); MEAN CORPUSCULAR HGB CONC 31.1 g/dL (33.0-37.0); MEAN PLATELET VOLUME 6.8 fl (7.2-11.7); MONO # 1.1 K/uL (0.0-0.8); MONO % 8.1 % (0.0-10.0); NEUT # 9.4 K/uL (1.8-7.0); NEUT % 71.4 % (50.0-75.0); NRBC % 0.1 % (0.0-0.0); RBC 4.19 Mil/uL (3.80-5.20); WHITE BLOOD COUNT 13.1 K/uL (4.8-10.8)
--- NOTE | 2017-10-18 16:11 | CP.PCM.PN ---
Subjective - Date & Time of Evaluation Date of Evaluation: 10/18/17 Time of Evaluation: 19:45 - Subjective Subjective: ID Note- Pt. seen and examined today. Pt. in better spirits today and denies any complaints. denies any fever or chills. is expected to be d/c tomm as per nurse. Objective - Vital Signs/Intake and Output Vital Signs (last 24 hours): Temp Pulse Resp BP Pulse Ox 98.4 F 78 20 144/78 98 10/18/17 08:15 10/18/17 08:24 10/18/17 08:15 10/18/17 08:24 10/18/17 08:15 - Medications Medications: Current Medications Acetaminophen (Tylenol 325mg Tab) 650 mg PO Q4 PRN PRN Reason: Pain Scale 4-10. Last Admin: 10/17/17 05:10 Dose: 650 mg Acyclovir (Zovirax 5% Oint) 1 applic EXT Q3 [facility] [place] Last Admin: 10/18/17 15:03 Dose: 1 applic Atorvastatin Calcium (Lipitor) 20 mg PO HS [facility] [place] Last Admin: 10/17/17 21:25 Dose: 20 mg Chlorpromazine (Thorazine) 25 mg PO Q6 PRN PRN Reason: Hiccups Last Admin: 10/03/17 21:11 Dose: 25 mg Ciprofloxacin (Cipro) 500 mg PO Q12 [facility] [place] PRN Reason: Protocol Last Admin: 10/18/17 08:22 Dose: 500 mg Clopidogrel Bisulfate (Plavix) 75 mg PO DAILY [facility] [place] Last Admin: 10/18/17 08:23 Dose: 75 mg Dabigatran (Pradaxa) 150 mg PO BID [facility] [place] PRN Reason: Protocol Last Admin: 10/18/17 08:21 Dose: 150 mg Docusate Sodium (Colace) 100 mg PO BID [facility] [place] Last Admin: 10/18/17 08:22 Dose: 100 mg Famotidine (Pepcid) 20 mg PO Q12 [facility] [place] Last Admin: 10/18/17 08:21 Dose: 20 mg Ferrous Sulfate (Feosol) 325 mg PO DAILY [facility] [place] Last Admin: 10/18/17 08:22 Dose: 325 mg Vancomycin HCl 1 gm/ Sodium (Chloride) 250 mls @ 125 mls/hr IVPB Q12 [facility] PRN Reason: Protocol Last Admin: 10/18/17 08:30 Dose: 125 mls/hr Lactulose (Enulose) 20 gm PO DAILY PRN PRN Reason: Constipation Last Admin: 10/01/17 21:19 Dose: 20 gm Meclizine HCl (Antivert) 25 mg PO TID [facility] [place] Last Admin: 10/18/17 13:24 Dose: 25 mg Metoprolol Tartrate (Lopressor) 12.5 mg PO Q12 [facility] [place] Last Admin: 10/18/17 08:24 Dose: 12.5 mg Phenylephrine HCl (Phenylephrine Opht 2.5% Soln) 1 drop OU .EVERY 1 MINUTE [facility] [place] Last Admin: 10/12/17 05:04 Dose: 1 drop Sodium Chloride ([place] Nasal [place]) 2 sprays PRABHAKAR Q4 PRN PRN Reason: Nasal congestion Last Admin: 10/06/17 08:14 Dose: 1 spr Sodium Phosphate (Fleet Enema) 135 ml [place] DAILY PRN PRN Reason: Constipation Last Admin: 10/01/17 22:23 Dose: 135 ml Sucralfate (Carafate Oral Susp) 1 gm PO QID [facility] [place] Last Admin: 10/18/17 13:22 Dose: 1 gm Topiramate (Topamax) 50 mg PO Q12 [facility] [place] Last Admin: 10/18/17 08:23 Dose: 50 mg Tropicamide (Mydriacyl 1% Opht Soln 15ml) 1 drop OU .EVERY 1 MINUTE [facility] [place] Last Admin: 10/12/17 05:09 Dose: 1 drop - Labs Labs: - Additional Findings Additional findings: - Constitutional Appears: No Acute Distress - Head Exam Head Exam: ATRAUMATIC - ENT Exam ENT Exam: Normal Oropharynx Additional comments: 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 and one in the left nostril region - Neck Exam Neck exam: Positive for: Full Rom Additional comments: supple - Respiratory Exam Respiratory Exam: Clear to Auscultation Bilateral, NORMAL BREATHING PATTERN - Cardiovascular Exam Cardiovascular Exam: RRR, +S1, +S2 - GI/Abdominal Exam GI & Abdominal Exam: Normal Bowel Sounds, Soft Additional comments: Minimal tenderness in midepigastric region with palpation, + BS soft no guarding, no rebound - Extremities Exam Additional comments: no edema B/L LE - Neurological Exam Neurological exam: Alert, Oriented x 3 Additional comments: weakness in LUE Laboratory Results - last 72 hr 10/16/17 10/18/17 12:38 13:30 WBC 13.1 H RBC 4.19 Hgb 10.0 L Hct 32.1 L MCV 76.5 L D MCH 23.8 L MCHC 31.1 L RDW 28.0 H Plt Count 675 H MPV 6.8 L Neut % (Auto) 71.4 Lymph % (Auto) 17.1 L Fisher % (Auto) 8.1 Eos % (Auto) 3.1 Baso % (Auto) 0.3 Neut # (Auto) 9.4 H Lymph # (Auto) 2.2 Fisher # (Auto) 1.1 H Eos # (Auto) 0.4 Baso # (Auto) 0.0 Urine Color Yellow Urine Clarity Slighty-cloudy Urine pH 6.0 Ur Specific [place] 1.021 Urine Protein Negative Urine Glucose (UA) Neg Urine Ketones Negative Urine Blood Negative Urine Nitrate Negative Urine Bilirubin Negative Urine Urobilinogen 0.2-1.0 Ur Leukocyte Esterase Neg Urine RBC (Auto) 2 Urine Microscopic WBC 2 Ur Squamous Epith Cells 1 Urine Bacteria Rare Microbiology 10/17/17 19:00 Blood-Venous Blood Culture - Preliminary NO GROWTH AFTER 24 HOURS 10/17/17 18:30 Blood-Venous Blood Culture - Preliminary NO GROWTH AFTER 24 HOURS 10/16/17 12:38 Urine,Clean Catch Urine Culture - Final No Growth (<1,000 CFU/ML) 10/15/17 23:30 Blood-Venous Blood Culture - Preliminary NO GROWTH AFTER 24 HOURS 10/15/17 23:15 Blood-Venous Blood Culture - Preliminary NO GROWTH AFTER 24 HOURS 10/08/17 05:25 Blood S.aureus & Coag-Neg Staph PNA FISH - Final 10/08/17 05:25 Blood Blood Culture - Final Staphylococcus Aureus 10/08/17 05:25 Blood Gram Stain - Final 10/07/17 19:05 Urine,Clean Catch Urine Culture - Final Enterococcus Faecalis Assessment and Plan (1) Elevated WBC count Status: Acute (2) Acute CVA (cerebrovascular accident) Status: Acute (3) Coagulopathy Status: Acute (4) Parietal lobe infarction Status: Acute - Assessment and Plan (Free Text) Assessment: A/P- 47 year old female with recent acute CVA with persistent wbc elevations despite steroid taper. afebrile leukocytosis much improved. 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 Plan- advise to continue with IV vancomycin to treat the MSSA in the initial blood cx . keep vanco trough <20. check wbc in am. If pt. is being d/c home tomm then I would advise to place PICC line and to have IV vancomycin 1 gram IV daily as outpatient for at least 10-14 days. if patient refuses picc line then would advise at least 3 weeks of oral antibiotics for the MSSA and check repeat blood cx as outpatient. All above d/w patient at length and she verbalizes full understanding of all above and agrees with above plan of care. case also d/w at length.
--- NOTE | 2017-10-18 17:23 | CP.PCM.PN ---
Subjective - Date & Time of Evaluation Date of Evaluation: 10/18/17 Time of Evaluation: 09:00 - Subjective Subjective: F/U CVA no AD , blurred vision L eye Objective - Vital Signs/Intake and Output Vital Signs (last 24 hours): Temp Pulse Resp BP Pulse Ox 98.4 F 78 20 144/78 98 10/18/17 08:15 10/18/17 08:24 10/18/17 08:15 10/18/17 08:24 10/18/17 08:15 - Medications Medications: Current Medications Acetaminophen (Tylenol 325mg Tab) 650 mg PO Q4 PRN PRN Reason: Pain Scale 4-10. Last Admin: 10/17/17 05:10 Dose: 650 mg Acyclovir (Zovirax 5% Oint) 1 applic EXT Q3 [facility] Last Admin: 10/18/17 15:03 Dose: 1 applic Atorvastatin Calcium (Lipitor) 20 mg PO HS [facility] Last Admin: 10/17/17 21:25 Dose: 20 mg Chlorpromazine (Thorazine) 25 mg PO Q6 PRN PRN Reason: Hiccups Last Admin: 10/03/17 21:11 Dose: 25 mg Ciprofloxacin (Cipro) 500 mg PO Q12 [facility] PRN Reason: Protocol Last Admin: 10/18/17 08:22 Dose: 500 mg Clopidogrel Bisulfate (Plavix) 75 mg PO DAILY [facility] Last Admin: 10/18/17 08:23 Dose: 75 mg Dabigatran (Pradaxa) 150 mg PO BID [facility] PRN Reason: Protocol Last Admin: 10/18/17 17:16 Dose: 150 mg Docusate Sodium (Colace) 100 mg PO BID [facility] Last Admin: 10/18/17 17:16 Dose: 100 mg Famotidine (Pepcid) 20 mg PO Q12 [facility] Last Admin: 10/18/17 08:21 Dose: 20 mg Ferrous Sulfate (Feosol) 325 mg PO DAILY [facility] Last Admin: 10/18/17 08:22 Dose: 325 mg Vancomycin HCl 1 gm/ Sodium (Chloride) 250 mls @ 125 mls/hr IVPB Q12 [facility] PRN Reason: Protocol Last Admin: 10/18/17 08:30 Dose: 125 mls/hr Lactulose (Enulose) 20 gm PO DAILY PRN PRN Reason: Constipation Last Admin: 03/19/18 21:19 Dose: 20 gm Meclizine HCl (Antivert) 25 mg PO TID [facility] Last Admin: 10/18/17 17:16 Dose: 25 mg Metoprolol Tartrate (Lopressor) 12.5 mg PO Q12 [facility] Last Admin: 10/18/17 08:24 Dose: 12.5 mg Phenylephrine HCl (Phenylephrine Opht 2.5% Soln) 1 drop OU .EVERY 1 MINUTE [facility] Last Admin: 10/12/17 05:04 Dose: 1 drop Sodium Chloride ([place] Nasal [place]) 2 sprays PRABHAKAR Q4 PRN PRN Reason: Nasal congestion Last Admin: 10/06/17 08:14 Dose: 1 spr Sodium Phosphate (Fleet Enema) 135 ml [place] DAILY PRN PRN Reason: Constipation Last Admin: 10/01/17 22:23 Dose: 135 ml Sucralfate (Carafate Oral Susp) 1 gm PO QID [facility] Last Admin: 10/18/17 17:16 Dose: 1 gm Topiramate (Topamax) 50 mg PO Q12 [facility] Last Admin: 10/18/17 08:23 Dose: 50 mg Tropicamide (Mydriacyl 1% Opht Soln 15ml) 1 drop OU .EVERY 1 MINUTE [facility] Last Admin: 10/12/17 05:09 Dose: 1 drop - Labs Labs: 10/18/17 13:30 10/15/17 17:45 - Constitutional Appears: No Acute Distress - Head Exam Head Exam: NORMAL INSPECTION - Eye Exam Eye Exam: PERRL - ENT Exam Additional comments: Lip lesion - Neck Exam Neck Exam: Normal Inspection - Respiratory Exam Respiratory Exam: NORMAL BREATHING PATTERN - Cardiovascular Exam Cardiovascular Exam: REGULAR RHYTHM - GI/Abdominal Exam GI & Abdominal Exam: Soft, Normal Bowel Sounds - Extremities Exam Extremities Exam: Normal Inspection - Back Exam Back Exam: NORMAL INSPECTION - Neurological Exam Neurological Exam: Alert, Oriented x3 Additional comments: Able to lift LUE above the shoulder. 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
[2017-10-19] MEDS: Acyclovir 5% OINT 5 APPLIC/5 GM EXT SCH ×8 (01:13→21:22)
[2017-10-19 07:44] LABS: BASO % 0.3 % (0.0-2.0); EOS # 0.4 K/uL (0.0-0.7); HEMOGLOBIN 10.4 g/dL (12.0-16.0); LYMPH # 2.2 K/uL (1.0-4.3); LYMPH % 17.3 % (20.0-40.0); MEAN CORPUSCULAR HEMOGLOBIN 24.2 pg (27.0-31.0); MEAN CORPUSCULAR HGB CONC 31.8 g/dL (33.0-37.0); MEAN PLATELET VOLUME 6.6 fl (7.2-11.7); MONO # 0.9 K/uL (0.0-0.8); MONO % 7.1 % (0.0-10.0); NEUT # 9.4 K/uL (1.8-7.0); NEUT % 72.3 % (50.0-75.0); NRBC % 0.1 % (0.0-0.0); RBC 4.3 Mil/uL (3.80-5.20); RED CELL DISTRIBUTION WIDTH 29.9 % (11.5-14.5)
[2017-10-19] MEDS: Sucralfate 1 gm/10 ml Oral Susp UD PO SCH ×4 (08:41→21:21)
--- NOTE | 2017-10-19 11:45 | CP.PCM.PN ---
Subjective - Date & Time of Evaluation Date of Evaluation: 10/19/17 Time of Evaluation: 11:00 - Subjective Subjective: No complaints. Objective - Vital Signs/Intake and Output Vital Signs (last 24 hours): Temp Pulse Resp BP Pulse Ox 98.2 F 98 H 20 131/74 98 10/19/17 07:59 10/19/17 08:42 10/19/17 07:59 10/19/17 08:42 10/19/17 07:59 - Medications Medications: Current Medications Acetaminophen (Tylenol 325mg Tab) 650 mg PO Q4 PRN PRN Reason: Pain Scale 4-10. Last Admin: 10/19/17 08:45 Dose: 650 mg Acyclovir (Zovirax 5% Oint) 1 applic EXT Q3 [facility] Last Admin: 10/19/17 10:50 Dose: 1 applic Atorvastatin Calcium (Lipitor) 20 mg PO HS [facility] Last Admin: 10/18/17 21:05 Dose: 20 mg Chlorpromazine (Thorazine) 25 mg PO Q6 PRN PRN Reason: Hiccups Last Admin: 10/03/17 21:11 Dose: 25 mg Ciprofloxacin (Cipro) 500 mg PO Q12 [facility] PRN Reason: Protocol Last Admin: 10/19/17 08:41 Dose: 500 mg Clopidogrel Bisulfate (Plavix) 75 mg PO DAILY [facility] Last Admin: 10/19/17 08:43 Dose: 75 mg Dabigatran (Pradaxa) 150 mg PO BID [facility] PRN Reason: Protocol Last Admin: 10/19/17 08:41 Dose: 150 mg Docusate Sodium (Colace) 100 mg PO BID [facility] Last Admin: 10/19/17 08:42 Dose: 100 mg Famotidine (Pepcid) 20 mg PO Q12 [facility] Last Admin: 10/19/17 08:41 Dose: 20 mg Ferrous Sulfate (Feosol) 325 mg PO DAILY [facility] Last Admin: 10/19/17 08:42 Dose: 325 mg Vancomycin HCl 1 gm/ Sodium (Chloride) 250 mls @ 125 mls/hr IVPB Q12 [facility] PRN Reason: Protocol Last Admin: 10/19/17 08:36 Dose: 125 mls/hr Lactulose (Enulose) 20 gm PO DAILY PRN PRN Reason: Constipation Last Admin: 10/01/17 21:19 Dose: 20 gm Meclizine HCl (Antivert) 25 mg PO TID [facility] Last Admin: 10/19/17 08:41 Dose: 25 mg Metoprolol Tartrate (Lopressor) 12.5 mg PO Q12 [facility] Last Admin: 10/19/17 08:42 Dose: 12.5 mg Phenylephrine HCl (Phenylephrine Opht 2.5% Soln) 1 drop OU .EVERY 1 MINUTE [facility] Last Admin: 10/12/17 05:04 Dose: 1 drop Sodium Chloride ([place] Nasal [place]) 2 sprays PRABHAKAR Q4 PRN PRN Reason: Nasal congestion Last Admin: 10/06/17 08:14 Dose: 1 spr Sodium Phosphate (Fleet Enema) 135 ml [place] DAILY PRN PRN Reason: Constipation Last Admin: 10/01/17 22:23 Dose: 135 ml Sucralfate (Carafate Oral Susp) 1 gm PO QID [facility] Last Admin: 10/19/17 08:41 Dose: 1 gm Topiramate (Topamax) 50 mg PO Q12 [facility] Last Admin: 10/19/17 08:43 Dose: 50 mg Tropicamide (Mydriacyl 1% Opht Soln 15ml) 1 drop OU .EVERY 1 MINUTE [facility] Last Admin: 10/12/17 05:09 Dose: 1 drop - Labs Labs: 10/19/17 07:22 10/15/17 17:45 - Head Exam Head Exam: ATRAUMATIC - Eye Exam Eye Exam: Normal appearance - ENT Exam ENT Exam: Mucous Membranes Dry - Respiratory Exam Respiratory Exam: NORMAL BREATHING PATTERN - Cardiovascular Exam Cardiovascular Exam: +S1, +S2 - GI/Abdominal Exam GI & Abdominal Exam: Normal Bowel Sounds Assessment and Plan (1) Thrombocytosis Assessment & Plan: likely reactive from iron deficiency on PO iron Status: Acute (2) Leukocytosis Assessment & Plan: on antibiotics may have reactive component Status: Acute (3) Anemia Assessment & Plan: iron deficiency on oral iron Status: Chronic (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
--- NOTE | 2017-10-19 11:48 | CP.PCM.PN ---
Subjective - Date & Time of Evaluation Date of Evaluation: 10/19/17 Time of Evaluation: 07:00 - Subjective Subjective: no acute complaints at present Objective - Vital Signs/Intake and Output Vital Signs (last 24 hours): Temp Pulse Resp BP Pulse Ox 98.2 F 98 H 20 131/74 98 10/19/17 07:59 10/19/17 08:42 10/19/17 07:59 10/19/17 08:42 10/19/17 07:59 - Medications Medications: Current Medications Acetaminophen (Tylenol 325mg Tab) 650 mg PO Q4 PRN PRN Reason: Pain Scale 4-10. Last Admin: 10/19/17 08:45 Dose: 650 mg Acyclovir (Zovirax 5% Oint) 1 applic EXT Q3 [facility] Last Admin: 10/19/17 10:50 Dose: 1 applic Atorvastatin Calcium (Lipitor) 20 mg PO HS [facility] Last Admin: 10/18/17 21:05 Dose: 20 mg Chlorpromazine (Thorazine) 25 mg PO Q6 PRN PRN Reason: Hiccups Last Admin: 10/03/17 21:11 Dose: 25 mg Ciprofloxacin (Cipro) 500 mg PO Q12 [facility] PRN Reason: Protocol Last Admin: 10/19/17 08:41 Dose: 500 mg Clopidogrel Bisulfate (Plavix) 75 mg PO DAILY [facility] Last Admin: 10/19/17 08:43 Dose: 75 mg Dabigatran (Pradaxa) 150 mg PO BID [facility] PRN Reason: Protocol Last Admin: 10/19/17 08:41 Dose: 150 mg Docusate Sodium (Colace) 100 mg PO BID [facility] Last Admin: 10/19/17 08:42 Dose: 100 mg Famotidine (Pepcid) 20 mg PO Q12 [facility] Last Admin: 10/19/17 08:41 Dose: 20 mg Ferrous Sulfate (Feosol) 325 mg PO DAILY [facility] Last Admin: 10/19/17 08:42 Dose: 325 mg Vancomycin HCl 1 gm/ Sodium (Chloride) 250 mls @ 125 mls/hr IVPB Q12 [facility] PRN Reason: Protocol Last Admin: 10/19/17 08:36 Dose: 125 mls/hr Lactulose (Enulose) 20 gm PO DAILY PRN PRN Reason: Constipation Last Admin: 10/01/17 21:19 Dose: 20 gm Meclizine HCl (Antivert) 25 mg PO TID [facility] Last Admin: 10/19/17 08:41 Dose: 25 mg Metoprolol Tartrate (Lopressor) 12.5 mg PO Q12 [facility] Last Admin: 10/19/17 08:42 Dose: 12.5 mg Phenylephrine HCl (Phenylephrine Opht 2.5% Soln) 1 drop OU .EVERY 1 MINUTE [facility] Last Admin: 10/12/17 05:04 Dose: 1 drop Sodium Chloride ([place] Nasal [place]) 2 sprays PRABHAKAR Q4 PRN PRN Reason: Nasal congestion Last Admin: 10/06/17 08:14 Dose: 1 spr Sodium Phosphate (Fleet Enema) 135 ml [place] DAILY PRN PRN Reason: Constipation Last Admin: 10/01/17 22:23 Dose: 135 ml Sucralfate (Carafate Oral Susp) 1 gm PO QID [facility] Last Admin: 10/19/17 08:41 Dose: 1 gm Topiramate (Topamax) 50 mg PO Q12 [facility] Last Admin: 10/19/17 08:43 Dose: 50 mg Tropicamide (Mydriacyl 1% Opht Soln 15ml) 1 drop OU .EVERY 1 MINUTE [facility] Last Admin: 10/12/17 05:09 Dose: 1 drop - Labs Labs: 10/19/17 07:22 10/15/17 17:45 - Head Exam Head Exam: ATRAUMATIC, NORMAL INSPECTION, NORMOCEPHALIC - Eye Exam Eye Exam: EOMI, Normal appearance, PERRL Pupil Exam: NORMAL ACCOMODATION - ENT Exam ENT Exam: Mucous Membranes Moist, Normal Exam - Neck Exam Neck Exam: Full ROM, Normal Inspection - Respiratory Exam Respiratory Exam: NORMAL BREATHING PATTERN - Cardiovascular Exam Cardiovascular Exam: REGULAR RHYTHM - GI/Abdominal Exam GI & Abdominal Exam: Soft, Normal Bowel Sounds - Rectal Exam Rectal Exam: NORMAL INSPECTION - Exam External exam: NORMAL EXTERNAL EXAM - Extremities Exam Extremities Exam: Full ROM, Normal Capillary Refill - Neurological Exam Neurological Exam: Alert, Awake Neuro motor strength exam: Left Upper Extremity: 3, Right Upper Extremity: 3, Left Lower Extremity: 3, Right Lower Extremity: 3 - Psychiatric Exam Psychiatric exam: Normal Affect, Normal Mood - Skin Skin Exam: Dry, Intact Assessment and Plan (1) 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
--- NOTE | 2017-10-19 16:40 | CP.PCM.PN ---
Subjective - Date & Time of Evaluation Date of Evaluation: 10/19/17 Time of Evaluation: 10:00 - Subjective Subjective: F/U Acute CVA. Pt with blurred vision L eye, increased strength LUE. Objective - Vital Signs/Intake and Output Vital Signs (last 24 hours): Temp Pulse Resp BP Pulse Ox 98.7 F 100 H 18 132/84 98 10/19/17 15:48 10/19/17 15:48 10/19/17 15:48 10/19/17 15:48 10/19/17 15:48 - Medications Medications: Current Medications Acetaminophen (Tylenol 325mg Tab) 650 mg PO Q4 PRN PRN Reason: Pain Scale 4-10. Last Admin: 10/19/17 08:45 Dose: 650 mg Acyclovir (Zovirax 5% Oint) 1 applic EXT Q3 [facility] Last Admin: 10/19/17 12:14 Dose: 1 applic Atorvastatin Calcium (Lipitor) 20 mg PO HS [facility] Last Admin: 10/18/17 21:05 Dose: 20 mg Chlorpromazine (Thorazine) 25 mg PO Q6 PRN PRN Reason: Hiccups Last Admin: 10/03/17 21:11 Dose: 25 mg Clopidogrel Bisulfate (Plavix) 75 mg PO DAILY [facility] Last Admin: 10/19/17 08:43 Dose: 75 mg Dabigatran (Pradaxa) 150 mg PO BID [facility] PRN Reason: Protocol Last Admin: 10/19/17 08:41 Dose: 150 mg Docusate Sodium (Colace) 100 mg PO BID [facility] Last Admin: 10/19/17 08:42 Dose: 100 mg Famotidine (Pepcid) 20 mg PO Q12 [facility] Last Admin: 10/19/17 08:41 Dose: 20 mg Ferrous Sulfate (Feosol) 325 mg PO DAILY [facility] Last Admin: 10/19/17 08:42 Dose: 325 mg Vancomycin HCl 1 gm/ Sodium (Chloride) 250 mls @ 125 mls/hr IVPB Q12 [facility] PRN Reason: Protocol Last Admin: 10/19/17 08:36 Dose: 125 mls/hr Lactulose (Enulose) 20 gm PO DAILY PRN PRN Reason: Constipation Last Admin: 10/01/17 21:19 Dose: 20 gm Meclizine HCl (Antivert) 25 mg PO TID [facility] Last Admin: 10/19/17 12:14 Dose: 25 mg Metoprolol Tartrate (Lopressor) 12.5 mg PO Q12 [facility] Last Admin: 10/19/17 08:42 Dose: 12.5 mg Phenylephrine HCl (Phenylephrine Opht 2.5% Soln) 1 drop OU .EVERY 1 MINUTE [facility] Last Admin: 10/12/17 05:04 Dose: 1 drop Sodium Chloride ([place] Nasal [place]) 2 sprays PRABHAKAR Q4 PRN PRN Reason: Nasal congestion Last Admin: 10/06/17 08:14 Dose: 1 spr Sodium Phosphate (Fleet Enema) 135 ml [place] DAILY PRN PRN Reason: Constipation Last Admin: 10/01/17 22:23 Dose: 135 ml Sucralfate (Carafate Oral Susp) 1 gm PO QID [facility] Last Admin: 10/19/17 12:14 Dose: 1 gm Topiramate (Topamax) 50 mg PO Q12 [facility] Last Admin: 10/19/17 08:43 Dose: 50 mg Tropicamide (Mydriacyl 1% Opht Soln 15ml) 1 drop OU .EVERY 1 MINUTE [facility] Last Admin: 10/12/17 05:09 Dose: 1 drop - Labs Labs: 10/19/17 07:22 10/15/17 17:45 - Constitutional Appears: No Acute Distress - Head Exam Head Exam: NORMAL INSPECTION - Eye Exam Eye Exam: PERRL - ENT Exam ENT Exam: Normal Exam Additional comments: Lip lesion - Neck Exam Neck Exam: Normal Inspection - Respiratory Exam Respiratory Exam: NORMAL BREATHING PATTERN - Cardiovascular Exam Cardiovascular Exam: REGULAR RHYTHM - GI/Abdominal Exam GI & Abdominal Exam: Soft, Normal Bowel Sounds - Extremities Exam Extremities Exam: Normal Inspection - Back Exam Back Exam: NORMAL INSPECTION - Neurological Exam Neurological Exam: Alert, Oriented x3 Additional comments: Able to lift LUE above the shoulder. 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 and rest of Tx.
[2017-10-19] MEDS ORDERED: Lidocaine Hydrochloride 1% 10 ML ONE (17:01)
--- NOTE | 2017-10-19 19:10 | PCM.SURG1 ---
Surgeon's Initial Post Op Note - Surgeon's Notes Surgeon: Be Melo MD [employer] Sales Representative: None Type of Anesthesia: Local Pre-Operative Diagnosis: infection Operative Findings: patent right basilic vein. catheter length: 34 cm. catheter tip: cavoatrial junction Post-Operative Diagnosis: same Operation Performed: RUE PICC Insertion Specimen/Specimens Removed: n/a Estimated Blood Loss: EBL {In ML}: 0 Date of Surgery/Procedure: 10/19/17 Time of Surgery/Procedure: 17:50
[2017-10-20 00:47] VITALS: RESP 20
[2017-10-20] MEDS: Acyclovir 5% OINT 5 APPLIC/5 GM EXT SCH ×5 (01:17→13:14)
[2017-10-20 07:55] LABS: BLOOD UREA NITROGEN 9 mg/dl (7-17); CALCIUM 8.6 mg/dL (8.4-10.2); GFR AFRICAN-AMERICAN > 60; GFR NON-AFRICAN AMERICAN > 60
[2017-10-20 08:34] VITALS: BP 138/65; PULSE 110; TEMP 97.6; O2SAT 100
[2017-10-20] MEDS: Sucralfate 1 gm/10 ml Oral Susp UD PO SCH ×2 (09:01→13:14)
--- NOTE | 2017-10-21 10:27 | CP.PCM.DIS ---
Provider - Provider Date of Admission: 10/01/17 17:18 Attending physician: Lei Alejo MD Diagnosis - Discharge Diagnosis (1) Acute CVA (cerebrovascular accident) Status: Acute Priority: High (2) New infarction of cerebellum Status: Acute Priority: High (3) Vertebral artery occlusion Status: Acute Priority: High (4) Parietal lobe infarction Status: Acute Priority: High (5) Subclavian artery thrombosis Status: Acute Priority: High (6) Anemia Status: Chronic Priority: Medium (7) Elevated WBC count Status: Acute Hospital Course - Lab Results Lab Results: Micro Results 10/15/17 23:30 Blood-Venous Blood Culture - Preliminary NO GROWTH AFTER 4 DAYS 10/15/17 23:15 Blood-Venous Blood Culture - Preliminary NO GROWTH AFTER 4 DAYS 10/17/17 19:00 Blood-Venous Blood Culture - Preliminary NO GROWTH AFTER 3 DAYS 10/17/17 18:30 Blood-Venous Blood Culture - Preliminary NO GROWTH AFTER 3 DAYS 10/16/17 12:38 Urine,Clean Catch Urine Culture - Final No Growth (<1,000 CFU/ML) 10/08/17 05:25 Blood S.aureus & Coag-Neg Staph PNA FISH - Final 10/08/17 05:25 Blood Blood Culture - Final Staphylococcus Aureus 10/08/17 05:25 Blood Gram Stain - Final 10/07/17 19:05 Urine,Clean Catch Urine Culture - Final Enterococcus Faecalis Most Recent Lab Values WBC 13.0 K/uL (4.8-10.8) H 10/19/17 07:22 RBC 4.30 Mil/uL (3.80-5.20) 10/19/17 07:22 Hgb 10.4 g/dL (12.0-16.0) L 10/19/17 07:22 Hct 32.7 % (34.0-47.0) L 10/19/17 07:22 MCV 76.0 fl (81.0-99.0) L 10/19/17 07:22 MCH 24.2 pg (27.0-31.0) L 10/19/17 07:22 MCHC 31.8 g/dL (33.0-37.0) L 10/19/17 07:22 RDW 29.9 % (11.5-14.5) H 10/19/17 07:22 Plt Count 683 K/uL (130-400) H 10/19/17 07:22 MPV 6.6 fl (7.2-11.7) L 10/19/17 07:22 Neut % (Auto) 72.3 % (50.0-75.0) 10/19/17 07:22 Lymph % (Auto) 17.3 % (20.0-40.0) L 10/19/17 07:22 [place] % (Auto) 7.1 % (0.0-10.0) 10/19/17 07:22 Eos % (Auto) 3.0 % (0.0-4.0) 10/19/17 07:22 Baso % (Auto) 0.3 % (0.0-2.0) 10/19/17 07: Neut # (Auto) 9.4 K/uL (1.8-7.0) H 10/19/17 07:22 Lymph # (Auto) 2.2 K/uL (1.0-4.3) 10/19/17 07:22 [place] # (Auto) 0.9 K/uL (0.0-0.8) H 10/19/17 07:22 Eos # (Auto) 0.4 K/uL (0.0-0.7) 10/19/17 07:22 Baso # (Auto) 0.0 K/uL (0.0-0.2) 10/19/17 07:22 Neutrophils % (Manual) 94 % (42-75) H 10/07/17 05:25 Lymphocytes % (Manual) 2 % (20-50) L 10/07/17 05:25 Reactive Lymphs % 2 % (0-0) H 10/07/17 05:25 Monocytes % (Manual) 2 % (0-10) 10/07/17 05:25 Platelet Estimate Markedly increased (NORMAL) H 10/07/17 05:25 Large Platelets Present 10/07/17 05:25 Polychromasia Slight 10/07/17 05:25 Hypochromasia (manual) Moderate 10/07/17 05:25 Poikilocytosis (manual Moderate 10/07/17 05:25 Anisocytosis (manual) Moderate 10/07/17 05:25 Microcytosis (manual) Slight 10/07/17 05:25 Target Cells Slight 10/07/17 05:25 Tear Drop Cells Slight 10/07/17 05:25 Ovalocytes Slight 10/07/17 05:25 Stomatocytes Slight 10/07/17 05:25 Schistocytes Slight 10/07/17 05:25 LAP Score 177 (20-180) 10/08/17 08:09 Sodium 145 mmol/l (132-148) 10/20/17 05:05 Potassium 3.5 MMOL/L (3.6-5.0) L 10/20/17 05:05 Chloride 111 mmol/L (98-107) H 10/20/17 05:05 Carbon Dioxide 20 mmol/L (22-30) L 10/20/17 05:05 Anion Gap 18 (10-20) 10/20/17 05:05 BUN 9 mg/dl (7-17) 10/20/17 05:05 Creatinine 0.7 mg/dl (0.7-1.2) 10/20/17 05:05 Est GFR ( Amer) > 60 10/20/17 05:05 Est GFR (Non-Af Amer) > 60 10/20/17 05:05 Random Glucose 123 mg/dL (65-105) H 10/20/17 05:05 Calcium 8.6 mg/dL (8.4-10.2) 10/20/17 05:05 Total Bilirubin 0.4 mg/dl (0.2-1.3) 10/08/17 05:25 AST 18 U/L (14-36) 10/08/17 05:25 ALT 28 U/L (9-52) 10/08/17 05:25 Alkaline Phosphatase 71 U/L (38-126) 10/08/17 05:25 Total Protein 7.2 G/DL (6.3-8.2) 10/08/17 05:25 Albumin 3.6 g/dL (3.5-5.0) 10/08/17 05:25 Globulin 3.6 gm/dL (2.2-3.9) 10/08/17 05:25 Albumin/Globulin Ratio 1.0 (1.0-2.1) 10/08/17 05:25 Urine Color Yellow (YELLOW) 10/16/17 12:38 Urine Clarity Slighty-cloudy (Clear) 10/16/17 12:38 Urine pH 6.0 (5.0-8.0) 10/16/17 12:38 Ur Specific [place] 1.021 (1.003-1.030) 10/16/17 12:38 Urine Protein Negative mg/dL (NEGATIVE) 10/16/17 12:38 Urine Glucose (UA) Neg mg/dL (Normal) 10/16/17 12:38 Urine Ketones Negative mg/dL (NEGATIVE) 10/16/17 12:38 Urine Blood Negative (NEGATIVE) 10/16/17 12:38 Urine Nitrate Negative (NEGATIVE) 10/16/17 12:38 Urine Bilirubin Negative (NEGATIVE) 10/16/17 12:38 Urine Urobilinogen 0.2-1.0 mg/dL (0.2-1.0) 10/16/17 12:38 Ur Leukocyte Esterase Neg [place]/uL (Negative) 10/16/17 12:38 Urine RBC (Auto) 2 /hpf (0-3) 10/16/17 12:38 Urine WBC Clumps (Auto) Many /hpf (NONE) H 10/07/17 19:05 Urine Microscopic WBC 2 /hpf (0-5) 10/16/17 12:38 Ur Squamous Epith Cells 1 /hpf (0-5) 10/16/17 12:38 Urine Bacteria Rare (<OCC) 10/16/17 12:38 Urine Yeast (Budding) Many /hpf (NEGATIVE) H 10/07/17 19:05 Urine HCG, Qual Negative (NEGATIVE) 10/19/17 14:08 Vancomycin Trough 11.8 ug/mL (5.0-10.0) H 10/20/17 05:05 Discharge Exam - Head Exam Head Exam: ATRAUMATIC Discharge Plan - Follow Up Plan Condition: GOOD Disposition: HOME/ ROUTINE Instructions: Generalized Anxiety Disorder, Anemia of Chronic Disease, Dabigatran Etexilate, Acyclovir (Topical), Migraine Headache (DC), Stroke (DC), Nosebleeds (DC), Atorvastatin, Clopidogrel, Docusate, Famotidine, Ferrous Sulfate, Meclizine, Metoprolol, Topiramate, Tropicamide, Vancomycin, Caring for a Loved One After a Stroke, Going Home on Blood Thinners
--- NOTE | 2017-10-22 13:34 | VASCULAR ---
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 COMPARISON: None. PROCEDURE: 1. Focused ultrasound of the right upper extremity vasculature. 2. Ultrasound-guided access. 3. Insertion of peripherally inserted central venous catheter. 4. Fluoroscopic localization of catheter tip. PRE-PROCEDURE FINDINGS: 1. Patent right basilic vein. POST-PROCEDURE FINDINGS: 1. Placement of 4 [place]ian single-lumen PICC. 2. Catheter length: 34 cm. 3. Catheter tip at cavoatrial junction. INTERVENTIONAL RADIOLOGIST: Be Melo M.D. (the attending was present for the entire procedure) ANESTHESIA: None. MEDICATION: Lidocaine 1% for local subcutaneous analgesia. COMPLICATIONS: None. RADIATION DOSE: Fluoroscopy Time: 10.9 seconds Cumulative Dose: 1.18 mGy PROCEDURE DESCRIPTION AND FINDINGS: The risks, benefits, alternatives and possible complications of the procedure were fully discussed; all questions were answered and informed consent was obtained. The patient was brought into the interventional suite and a pre-procedure 'time-out' was performed. The patient was placed on the fluoroscopy table in the supine position. The right upper extremity was prepped and draped in the usual sterile fashion. Maximum sterile barrier precautions were maintained throughout the entire procedure. Preliminary ultrasound images of the right upper extremity vasculature demonstrate patency of the right basilic vein. Following subcutaneous infiltration of 1% lidocaine for local analgesia, under ultrasound guidance, a 21-gauge needle was advanced into the right basilic vein with real-time visualization of needle entry. The ultrasound images were permanently recorded and submitted to the PACS. A 0.018 guidewire was advanced centrally to the cavoatrial junction. A 4.5 Algerian peel-away sheath was advanced over the guidewire. After obtaining length measurement, a 4 [place]ian single-lumen PICC was placed with the tip of the catheter at the cavoatrial junction. The total length of the catheter is 34 cm. The hub of the PICC was secured to the skin using a sterile adhesive bandage. The patient tolerated the procedure well without immediate post-procedure complications and was transferred back to the floor in stable condition. IMPRESSION: SUCCESSFUL INSERTION OF RIGHT UPPER EXTREMITY PICC. PICC OK TO USE.
== END 2017-10-20 14:30 | disposition home health service (06) | DRG 57 ==
PROVIDERS: ADMIT Internal Medicine Pulmonary Disease; ATTEND Internal Medicine Pulmonary Disease
PROC: F07Z9FZ Gait Training/Functional Ambulation Treatment using Assistive, Adaptive, Supportive or Protective Equipment (ICD-10-PCS; principal; 2017-10-02)
PROC: F06Z6ZZ Communicative/Cognitive Integration Skills Treatment (ICD-10-PCS; 2017-10-02)
PROC: F08Z4FZ Home Management Treatment using Assistive, Adaptive, Supportive or Protective Equipment (ICD-10-PCS; 2017-10-02)
PROC: 02HV33Z Insertion of Infusion Device into Superior Vena Cava, Percutaneous Approach (ICD-10-PCS; 2017-10-19)
PROC: B548ZZA Ultrasonography of Superior Vena Cava, Guidance (ICD-10-PCS; 2017-10-19)
PROC: B518ZZA Fluoroscopy of Superior Vena Cava, Guidance (ICD-10-PCS; 2017-10-19)
DX: I69.359 Hemiplegia and hemiparesis following cerebral infarction affecting unspecified side (principal); D68.9 Coagulation defect, unspecified; N39.0 Urinary tract infection, site not specified; I69.398 Other sequelae of cerebral infarction; H53.8 Other visual disturbances; H54.62 Unqualified visual loss, left eye, normal vision right eye; D50.9 Iron deficiency anemia, unspecified; E78.5 Hyperlipidemia, unspecified; Z82.49 Family history of ischemic heart disease and other diseases of the circulatory system; Z79.01 Long term (current) use of anticoagulants; Z82.3 Family history of stroke; Z98.51 Tubal ligation status; G43.909 Migraine, unspecified, not intractable, without status migrainosus; K44.9 Diaphragmatic hernia without obstruction or gangrene; R00.1 Bradycardia, unspecified; R01.1 Cardiac murmur, unspecified; M54.2 Cervicalgia; R79.89 Other specified abnormal findings of blood chemistry; B00.1 Herpesviral vesicular dermatitis

== ENCOUNTER 2018-01-11 09:40 | Inpatient (IN) | payer BC ==
[2018-01-11 09:59] VITALS: BMI 27.5
--- NOTE | 2018-01-11 09:59 | ED PDOC ---
HPI:STROKE - Time Time: 09:54 - Historian Historian: Patient - Chief Complaint Chief Complaint: Numbness - Onset Date: 01/05/18 Time: 09:00 - Timing Timing: Currently Symptomatic - TPA Positive for Contraindication: Yes Reason tPA is not being Administered: out of window - Notes: Notes:: Pt. with hx of 3 strokes in September with clot and ischemia. Has left facial droop mild and left weakness mild since then. For 1 week she has had right upper and lower, and facial numbness. Yesterday she developed burning to the right side. Has weakness to the right side also mild. Feels like a heaviness. Pt. was at Dr. Gatica's office yesterday and told to come to the ER today morning. Pt. with no chest pain, dyspnea, abd pain, headache, leg pain. Has dizziness like room spinning which is like her vertigo. Pt. took 1 meclizine prior to arrival. NIHSS Stroke Scale - Date/Time Evaluation Performed Date Performed: 01/11/18 Time Performed: 09:59 When Was NIHSS Performed: Baseline - How Severe is the Stroke Level of Consciousness: 0=Alert LOC to Questions: 0=Both comments correct LOC to commands: 0=Obeys both correctly Best Gaze: 0=Normal Visual: 0=No visual loss Facial: 0=Normal Motor Arm - Left: 0=No drift Motor Arm - Right: 0=No drift Motor Leg - Left: 0=No drift Motor Leg - Right: 0=No drift Limb Ataxia: 0=Absent Sensory: 0=Normal Best Language: 0=No aphasia Dysarthia: 0=Normal articulation Extinction & Inattention (Neglect): 0=Normal, no object Score: 0 rTPA Inclusion/Exclusion - Refusal of Treatment Patient Refused Treatment: No - Inclusion Criteria for Altepase Patient is 18 years or Older: Yes The Clinical Diagnosis of Ischemic Stroke That is Causing a Potentially Disabling Neurological Deficit: No Time of Onset is Well Established to be Less Than 270 Minute Before Treatment Would Begin: No Risk/Benefit Discussed With Patient/Family Member Present: No Past Medical History Reviewed: Nursing Documentation, Vital Signs Vital Signs: Last Vital Signs Temp 99 F 01/11/18 09:50 Pulse 103 H 01/11/18 09:50 Resp 20 01/11/18 09:50 BP 144/103 H 01/11/18 09:50 Pulse Ox 99 01/11/18 09:50 - Medical History PMH: Anemia, Anxiety, CVA (x3), Gastrointestinal Ulcer, Migraine Denies: Chronic Kidney Disease - Family History Family History: States: Unknown Family Hx - Living Arrangements Living Arrangements: With Family - Social History Alcohol: None Drugs: Denies - Home Medications Home Medications: Ambulatory Orders Medication Instructions Recorded Acetaminophen [Tylenol 325mg tab] 650 mg PO Q4 PRN tab 10/01/17 Atorvastatin [Lipitor] 20 mg PO HS 10/01/17 Clopidogrel [Plavix] 75 mg PO DAILY tab 10/01/17 Dabigatran [Pradaxa] 150 mg PO BID cap 10/01/17 Sucralfate [Carafate Oral Susp] 1 gm PO QID udc 10/01/17 Topiramate [Topamax] 50 mg PO DAILY 10/01/17 Famotidine [Pepcid] 20 mg PO BID 11/07/17 Meclizine [Meclizine*] 25 mg PO BID 11/07/17 PrednisoLONE 1% [Pred Forte 1% 5 ml [place] DAILY 11/07/17 Opht Susp] - Allergies Allergies/Adverse Reactions: Allergies Allergy/AdvReac Type Severity Reaction Status Date / Time eggplant Allergy NAUSEA Uncoded 10/01/17 12:40 Review of Systems ROS Statement: Except As Marked, All Systems Reviewed And Found Negative Constitutional: Positive for: Weakness Neurological: Positive for: Weakness, Numbness, Dizziness Physical Exam - Reviewed Nursing Documentation Reviewed: Yes Vital Signs Reviewed: Yes - Physical Exam Appears: Positive for: Non-toxic, No Acute Distress Head Exam: Positive for: ATRAUMATIC, NORMAL INSPECTION, NORMOCEPHALIC Skin: Positive for: Normal Color, Warm, DRY Eye Exam: Positive for: EOMI, Normal appearance, PERRL ENT: Positive for: Normal ENT Inspection Neck: Positive for: Normal, Painless ROM, Supple Cardiovascular/Chest: Positive for: Regular Rate, Rhythm Respiratory: Positive for: CNT, Normal Breath Sounds Gastrointestinal/Abdominal: Positive for: Normal Exam, Soft. Negative for: Tenderness Back: Positive for: Normal Inspection. Negative for: L CVA Tenderness, R CVA Tenderness Extremity: Positive for: Normal ROM. Negative for: Tenderness, Pedal Edema Neurologic/Psych: Positive for: Alert, resource forester II-XII, Oriented, Motor/Sensory Deficits (r upper and lower 4/5 strength; left 5/5). Negative for: Aphasia, Facial Droop - ECG ECG: Positive for: Viewed By Me ECG Rhythm: Positive for: Normal QRS, Normal ST Segment, Sinus Rhythm O2 Sat by Pulse Oximetry: 99 Pulse Ox Interpretation: Normal - Radiology X-Ray: Read By Radiologist X-Ray Interpretation: No Acute Disease - CT Scan/US ct Other Rad Studies (CT/US): Read By Radiologist Other Rad Interpretation: no acute - Progress ED Course And Treament: 1008: Spoke with Dr. Gatica. Will get ct head. MRI head, MRA head and neck. Not a thrombolytic candidate. 1144: Will give plavix as pt. already took her pradaxa. Spoke with Dr. Alejo who will admit and give further orders when pt. reaches floor. Disposition - Clinical Impression Clinical Impression: CVA (cerebral vascular accident) - Patient ED Disposition Is Patient to be Admitted: Yes Counseled Patient/Family Regarding: Studies Performed, Diagnosis - Disposition Disposition Time: 11:45 Condition: FAIR - Pt Status Changed To: Hospital Disposition Of: Inpatient - Admit Certification Admit to Inpatient:: After my assessment, the patient will require hospitalization for at least two midnights. This is because of the severity of symptoms shown, intensity of services needed, and/or the medical risk in this patient being treated as an outpatient. - POA Present On Arrival: None
--- NOTE | 2018-01-11 10:27 | CT ---
PROCEDURE: CT HEAD WITHOUT CONTRAST. HISTORY: Numbness COMPARISON: 10/12/2017. TECHNIQUE: Axial computed tomography images were obtained through the head/brain without intravenous contrast. Radiation dose: Total exam DLP = 755.51 mGy-cm. This CT exam was performed using one or more of the following dose reduction techniques: Automated exposure control, adjustment of the mA and/or kV according to patient size, and/or use of iterative reconstruction technique. FINDINGS: HEMORRHAGE: No intracranial hemorrhage. BRAIN: Boateng-white matter differentiation is preserved. There is no mass, mass effect or abnormal extra-axial fluid collection. There is no territorial infarction. VENTRICLES: The ventricles are normal in size, shape and configuration. CALVARIUM: The skull base and calvarium are normal. PARANASAL SINUSES: Predominantly clear. MASTOID AIR CELLS: Predominantly clear. OTHER FINDINGS: None. IMPRESSION: No acute intracranial abnormality. If there is a persistent focal neurologic deficit and an ongoing clinical concern for acute infarction, an MRI of the brain without intravenous contrast would be a more sensitive modality for evaluation of hyperacute/acute ischemic infarction and demyelinating disease such as multiple sclerosis.
[2018-01-11 10:52] LABS: BASO # 0.1 K/uL (0.0-0.2); BASO % 0.9 % (0.0-2.0); EOS # 0.3 K/uL (0.0-0.7); HEMOGLOBIN 13.1 g/dL (12.0-16.0); LYMPH # 1.7 K/uL (1.0-4.3); LYMPH % 17.1 % (20.0-40.0); MEAN CELL VOLUME 91.7 fl (81.0-99.0); MEAN CORPUSCULAR HEMOGLOBIN 30.6 pg (27.0-31.0); MEAN CORPUSCULAR HGB CONC 33.3 g/dL (33.0-37.0); MEAN PLATELET VOLUME 7.8 fl (7.2-11.7); MONO # 0.8 K/uL (0.0-0.8); MONO % 7.8 % (0.0-10.0); NEUT # 7.3 K/uL (1.8-7.0); NEUT % 71.2 % (50.0-75.0); NRBC % 0.1 % (0.0-0.0); RBC 4.29 Mil/uL (3.80-5.20); RED CELL DISTRIBUTION WIDTH 13.5 % (11.5-14.5); WHITE BLOOD COUNT 10.2 K/uL (4.8-10.8)
[2018-01-11] MEDS: Sodium Chloride 0.9% 1,000 ML IV SCH ×2 (10:53→21:57)
[2018-01-11 11:10] LABS: INR 1.1 (0.9-1.2); PROTHROMBIN TIME 12.6 Seconds (9.8-13.1)
[2018-01-11 11:11] LABS: PARTIAL THROMBOPLASTIN TIME 36.5 Seconds (25.6-37.1)
--- NOTE | 2018-01-11 11:12 | RAD ---
HISTORY: stroke eval COMPARISON: No prior. FINDINGS: LUNGS: The lungs are well inflated and clear. PLEURA: No significant pleural effusion identified, no pneumothorax apparent. CARDIOVASCULAR: Normal. OSSEOUS STRUCTURES: No significant abnormalities. VISUALIZED UPPER ABDOMEN: Normal. OTHER FINDINGS: None. IMPRESSION: No active pulmonary disease.
[2018-01-11 11:34] LABS: ALB/GLOB RATIO 1.3 (1.0-2.1); ALBUMIN 4.4 g/dL (3.5-5.0); ALT/SGPT 131 U/L (9-52); AST/SGOT 108 U/L (14-36); BLOOD UREA NITROGEN 7 mg/dl (7-17); CALCIUM 9.6 mg/dL (8.4-10.2); GFR AFRICAN-AMERICAN > 60; GFR NON-AFRICAN AMERICAN > 60; HDL CHOLESTEROL 23 MG/DL (30-70)
[2018-01-11 11:37] LABS: LDL CHOLESTEROL 98 mg/dL (0-129)
--- NOTE | 2018-01-11 13:35 | MRI ---
PROCEDURE: MRI BRAIN WITHOUT CONTRAST HISTORY: stroke eval; hx cerebellum stroke COMPARISON: Noncontrast head CT from 01/11/2018 TECHNIQUE: Multiplanar, multisequence MR images of the brain were obtained without intravenous contrast enhancement. FINDINGS: HEMORRHAGE: None DWI: No evidence of an acute or early subacute infarction. BRAIN PARENCHYMA: Boateng-white matter differentiation is preserved. There are old lacunar infarctions in the left cerebellar hemisphere. There is no mass, mass effect or abnormal extra-axial fluid collection. The midline sagittal structures are normal. VENTRICLES: There is mild age advanced global parenchymal volume loss and proportionate enlargement of the ventricles and cortical sulci. CRANIUM: There is normal bone marrow signal pattern. ORBITS: Grossly unremarkable. PARANASAL SINUSES/MASTOIDS: There is mild mucosal thickening in the paranasal sinuses. The mastoid air cells are predominantly clear. VASCULAR SYSTEM: There are normal signal voids in the larger intracranial arteries. OTHER FINDINGS: None. IMPRESSION: No acute intracranial abnormality. Specifically, no evidence for acute infarction Old lacunar infarctions in the left cerebellar hemisphere. Mild global parenchymal volume loss, slightly advanced for the patient's age.
--- NOTE | 2018-01-11 13:50 | MRI ---
PROCEDURE: Magnetic Resonance Angiography Brain HISTORY: stroke eval; hx cerebellum stroke COMPARISON: None available. TECHNIQUE: 3D time of flight MR angiography of the intracranial arteries was performed. Rotating maximum intensity projection images were generated. FINDINGS: INTERNAL CAROTID ARTERIES: Normal flow related signal and caliber. The skull base, petrous, cavernous and supraclinoid segments are bilaterally widely patient. ANTERIOR CEREBRAL ARTERIES: Normal flow related signal and caliber. A1 and A2 segments are widely patent. Smaller distal branches unremarkable, as visualized. MIDDLE CEREBRAL ARTERIES: Normal flow related signal and caliber. M1 and M2 segments are widely patent. Perisylvian branches grossly symmetric. POSTERIOR CIRCULATION: Basilar Artery: Normal flow related signal. Distal Vertebral Arteries: There is normal flow related signal in the right vertebral artery. There is near complete absence of flow related signal in the left vertebral artery except for the most distal 3 mm segment. Posterior Cerebral Arteries: Normal flow related signal. Posterior Inferior Cerebellar Arteries: Normal right posterior in for cerebellar artery. The left spot posterior inferior cerebral artery is not visualized. ANEURYSM/ VASCULAR MALFORMATIONS: None. OTHER FINDINGS: None. IMPRESSION: 1. 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 2. Normal flow related signal in the anterior cerebral, middle cerebral, posterior cerebral, basilar and right vertebral artery is. The right PICA is normal in appearance.
--- NOTE | 2018-01-11 13:58 | MRI ---
PROCEDURE: MR Angiography of the neck without contrast HISTORY: stroke eval; hx cerebellum stroke COMPARISON: None available. TECHNIQUE: 3D [id number] angiography of the neck was performed. Rotating maximum intensity projection images of the cervical carotid and vertebral arteries were generated. The origins of the common carotid arteries were not visualized, which is a limitation inherent to the non-contrast time of flight technique. FINDINGS: RIGHT CAROTID ARTERIES: Common Carotid Artery: Normal. Carotid Bifurcation: Normal. Internal Carotid Artery:Normal. External Carotid Artery (proximal branches): Normal. LEFT CAROTID ARTERIES: Common Carotid Artery: Normal. Carotid Bifurcation: Normal. Internal Carotid Artery:Normal. External Carotid Artery (proximal branches): Normal. VERTEBRAL ARTERIES: Right Vertebral Artery: Normal. Left Vertebral Artery: There is absent flow related signal in the proximal segment, the origin is not included in the scan. The remaining cervical vertebral artery is hypoplastic with normal flow related signal. OTHER FINDINGS: None. IMPRESSION: 1. 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 These findings could be related to a tortuous origin however segmental occlusion is also a consideration. If clinically indicated, correlation with CTA head and neck may be performed. 2. Normal flow and caliber in a dominant right vertebral artery. 3. No evidence of hemodynamically significant stenosis in the internal carotid arteries by NASCET criteria.
--- NOTE | 2018-01-11 16:58 | CP.PCM.CON ---
History of Present Illness - History of Present Illness History of Present Illness: Neurology Consultation Note: Mrs. 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 She is on Plavix and Pradaxa and managed by Dr. Triplett for hematology. She presented to my office yesterday complaining of about a two weeks duration of right arm and leg burning painful sensation and numbness. Today, this seems to have gotten worse, and she presented to the ED for evaluation. MRI of the brain did not show any new infarcts. MRA of the head/neck demonstrated the chronic posterior circulation strokes. I discussed the possibility that the sensation may be due to post- stroke pain syndrome even though the thalamus was not involved, she likely had some medullary fiber involvement. Review of Systems - Review of Systems All systems: reviewed and no additional remarkable complaints except Past Patient History - Infectious Disease Hx of Infectious Diseases: None - Past Medical History & Family History Past Medical History?: Yes - Past Social History Alcohol: None Drugs: Denies - CARDIAC Hx Cardiac Disorders: Yes (SEVERE SINUS BRADYCARDIA PRESENTLY BEING EVALUATED BY PCP) - PULMONARY Hx Respiratory Disorders: No - NEUROLOGICAL Hx Neurological Disorder: Yes (CVA, Migraine) - HEENT Hx Epistaxis: Yes - RENAL Hx Chronic Kidney Disease: No - ENDOCRINE/METABOLIC Hx Endocrine Disorders: No - HEMATOLOGICAL/ONCOLOGICAL Hx Blood Disorders: Yes (anemia) - INTEGUMENTARY Hx Dermatological Problems: No - MUSCULOSKELETAL/RHEUMATOLOGICAL Hx Falls: No - GASTROINTESTINAL Hx Gastrointestinal Disorders: Yes Hx Ulcer: Yes - GENITOURINARY/GYNECOLOGICAL Hx Genitourinary Disorders: No - PSYCHIATRIC Hx Psychophysiologic Disorder: Yes (anxiety) - SURGICAL HISTORY Hx Surgeries: Yes Hx Tubal Ligation: Yes - ANESTHESIA Hx Anesthesia: Yes Hx Anesthesia Reactions: No Hx Malignant Hyperthermia: No Meds Allergies/Adverse Reactions: Allergies Allergy/AdvReac Type Severity Reaction Status Date / Time eggplant Allergy NAUSEA Uncoded 10/01/17 12:40 - Medications Medications: Current Medications Clopidogrel Bisulfate (Plavix) 75 mg PO DAILY [facility] Sodium Chloride (Sodium Chloride 0.9%) 1,000 mls @ 100 mls/hr IV .Q10H [facility] Last Admin: 01/11/18 10:53 Dose: 100 mls/hr Physical Exam - Neurological Exam Neurological exam: Abnormal Gait, Alert, CN II-XII Intact, Oriented x3, Reflexes Normal Additional comments: Slightly ataxic on FTN on the left. Decreased sensation and allodynia of right arm and leg. Results - Vital Signs Recent Vital Signs: Last Vital Signs Temp 98.1 F 01/11/18 16:41 Pulse 86 01/11/18 16:41 Resp 20 01/11/18 16:41 BP 113/78 01/11/18 16:41 Pulse Ox 99 01/11/18 16:41 - Labs Result Diagrams: 01/11/18 10:30 01/11/18 10:30 Labs: Laboratory Results - last 24 hr 01/11/18 01/11/18 01/11/18 09:57 10:30 10:30 WBC 10.2 RBC 4.29 Hgb 13.1 Hct 39.3 MCV 91.7 MCH 30.6 MCHC 33.3 RDW 13.5 Plt Count 415 H MPV 7.8 Neut % (Auto) 71.2 Lymph % (Auto) 17.1 L Lander % (Auto) 7.8 Eos % (Auto) 3.0 Baso % (Auto) 0.9 Neut # (Auto) 7.3 H Lymph # (Auto) 1.7 Lander # (Auto) 0.8 Eos # (Auto) 0.3 Baso # (Auto) 0.1 PT INR APTT Sodium 144 Potassium 4.0 Chloride 108 H Carbon Dioxide 22 Anion Gap 18 BUN 7 Creatinine 0.7 Est GFR ( Amer) > 60 Est GFR (Non-Af Amer) > 60 POC Glucose (mg/dL) 94 Random Glucose 102 Calcium 9.6 Total Bilirubin 0.5 AST 108 H D ALT 131 H Alkaline Phosphatase 82 Troponin I < 0.0120 Total Protein 7.7 Albumin 4.4 Globulin 3.4 Albumin/Globulin Ratio 1.3 Triglycerides 168 H Cholesterol 148 LDL Cholesterol Direct 98 HDL Cholesterol 23 L Blood Type Antibody Screen BBK History Checked 01/11/18 01/11/18 10:30 10:30 WBC RBC Hgb Hct MCV MCH MCHC RDW Plt Count MPV Neut % (Auto) Lymph % (Auto) Lander % (Auto) Eos % (Auto) Baso % (Auto) Neut # (Auto) Lymph # (Auto) Lander # (Auto) Eos # (Auto) Baso # (Auto) PT 12.6 INR 1.1 APTT 36.5 Sodium Potassium Chloride Carbon Dioxide Anion Gap BUN Creatinine Est GFR ( Amer) Est GFR (Non-Af Amer) POC Glucose (mg/dL) Random Glucose Calcium Total Bilirubin AST ALT Alkaline Phosphatase Troponin I Total Protein Albumin Globulin Albumin/Globulin Ratio Triglycerides Cholesterol LDL Cholesterol Direct HDL Cholesterol Blood Type A POSITIVE Antibody Screen Negative BBK History Checked Patient has bt Assessment & Plan (1) Neuropathic pain Assessment and Plan: Will start the patient on Neurontin 300 mg BID and follow for effect. If this is tolerated well, the patient can be discharged tomorrow to follow up with me in the outpatient neurology office in 2 weeks. Thank you. Status: Acute Priority: High (2) CVA (cerebral vascular accident) Assessment and Plan: Continue secondary stroke prevention with Pradaxa and Plavix. Status: Chronic Priority: High (3) Migraine Assessment and Plan: Will stop topamax since it may be contributing to the paresthesias. Status: Acute
--- NOTE | 2018-01-11 17:38 | CP.PCM.HP ---
History of Present Illness - History of Present Illness History of Present Illness: 47 yrs old female in the for 2 weeks numbness in the right upper extremity and right lower extremity with burning painful sensation, heaviness in right open right lower extremity increasing for the past 2-3 days , Patient was seen by neurology and directed to the ER [facility] Patient was admitted [facility] 09-21-17 with diagnosis of acute CVA ischemic left parietal occipital , acute ischemic CVA left cerebellar , thrombosis proximal left subclavian artery, occlusion of the left vertebral artery Repeat CT 09-23-17 new acute left cerebellar ischemic infarct when compared to CT 09-21-17 Patient was discharged to acute rehab 10-01-17 with final diagnosis ischemic acute CVA left parietal occipital, ischemic acute CVA left cerebellar, new ischemic infarct left cerebellar, occludes L vertebral artery ,inherited coagulopathy, migraine, pain left upper extremity, left subclavian brachial artery thrombosis, anemia. Patient with Hx of Migraine , PUD Patient was admitted to acute rehab [facility] 10-01-17, improvement with physical therapy and was discharged on on Pradaxa, Plavix, Antivert Review of Systems - Constitutional Constitutional: Other (nrg) - EENT Eyes: Blurred Vision Ears: Dizziness Nose/Mouth/Throat: Other (neg) - Cardiovascular Cardiovascular: Other (nrg) - Respiratory Respiratory: Other (neg) - Gastrointestinal Gastrointestinal: Other (neg) - Genitourinary Genitourinary: Other (neg) - Musculoskeletal Musculoskeletal: Myalgias - Integumentary Integumentary: Other (neg) - Neurological Neurological: Burning Sensations, Dizziness, Numbness, Paresthesias, Vertigo - Psychiatric Psychiatric: Anxiety - Endocrine Endocrine: Other (neg) - Hematologic/Lymphatic Hematologic: Other (neg) Past Patient History - Infectious Disease Hx of Infectious Diseases: None - Past Medical History & Family History Past Medical History?: Yes - Past Social History Alcohol: None Drugs: Denies Home Situation {Lives}: With Family - CARDIAC Hx Cardiac Disorders: Yes (SEVERE SINUS BRADYCARDIA PRESENTLY BEING EVALUATED BY PCP) - PULMONARY Hx Respiratory Disorders: No - NEUROLOGICAL Hx Neurological Disorder: Yes (CVA, Migraine) - HEENT Hx Epistaxis: Yes - RENAL Hx Chronic Kidney Disease: No - ENDOCRINE/METABOLIC Hx Endocrine Disorders: No - HEMATOLOGICAL/ONCOLOGICAL Hx Blood Disorders: Yes (anemia) - INTEGUMENTARY Hx Dermatological Problems: No - MUSCULOSKELETAL/RHEUMATOLOGICAL Hx Falls: No - GASTROINTESTINAL Hx Gastrointestinal Disorders: Yes Hx Ulcer: Yes - GENITOURINARY/GYNECOLOGICAL Hx Genitourinary Disorders: No - PSYCHIATRIC Hx Psychophysiologic Disorder: Yes (anxiety) - SURGICAL HISTORY Hx Surgeries: Yes Hx Tubal Ligation: Yes - ANESTHESIA Hx Anesthesia: Yes Hx Anesthesia Reactions: No Hx Malignant Hyperthermia: No Meds Home Medications: Home Medication List Medication Instructions Recorded Confirmed Type Clopidogrel [Plavix] 75 mg PO DAILY 30 Days tab 01/12/18 Rx Dabigatran [Pradaxa] 150 mg PO BID 60 Days cap 01/12/18 Rx Famotidine [Pepcid] 20 mg PO BID #60 tab 01/12/18 Rx Meclizine [Meclizine*] 25 mg PO BID #60 tab 01/12/18 Rx Pregabalin [Lyrica] 50 mg PO TID PRN #90 cap 01/12/18 Rx Allergies/Adverse Reactions: Allergies Allergy/AdvReac Type Severity Reaction Status Date / Time eggplant Allergy NAUSEA Uncoded 10/01/17 12:40 Physical Exam - Constitutional Appears: No Acute Distress - Head Exam Head Exam: NORMAL INSPECTION - Eye Exam Eye Exam: PERRL - ENT Exam ENT Exam: Normal Exam - Neck Exam Neck exam: Positive for: Normal Inspection - Respiratory Exam Respiratory Exam: Clear to Auscultation Bilateral - Cardiovascular Exam Cardiovascular Exam: REGULAR RHYTHM - GI/Abdominal Exam GI & Abdominal Exam: Normal Bowel Sounds, Soft - Extremities Exam Extremities exam: Positive for: normal inspection - Back Exam Back exam: NORMAL INSPECTION - Neurological Exam Neurological exam: Alert, CN II-XII Intact, Oriented x3 Additional comments: decreased sensation , burning sensation RUE , RLE , myalgia RUE , RLE , mild left ataxia Results - Vital Signs Recent Vital Signs: Last Vital Signs Temp 98.1 F 01/11/18 16:41 Pulse 94 H 01/11/18 16:58 Resp 16 01/11/18 16:58 BP 120/86 01/11/18 16:58 Pulse Ox 18 L 01/11/18 16:58 - Labs Result Diagrams: 01/12/18 06:30 01/12/18 06:30 Labs: Laboratory Results - last 24 hr 01/11/18 01/11/18 01/11/18 09:57 10:30 10:30 WBC 10.2 RBC 4.29 Hgb 13.1 Hct 39.3 MCV 91.7 MCH 30.6 MCHC 33.3 RDW 13.5 Plt Count 415 H MPV 7.8 Neut % (Auto) 71.2 Lymph % (Auto) 17.1 L Bollinger % (Auto) 7.8 Eos % (Auto) 3.0 Baso % (Auto) 0.9 Neut # (Auto) 7.3 H Lymph # (Auto) 1.7 Bollinger # (Auto) 0.8 Eos # (Auto) 0.3 Baso # (Auto) 0.1 PT INR APTT Sodium 144 Potassium 4.0 Chloride 108 H Carbon Dioxide 22 Anion Gap 18 BUN 7 Creatinine 0.7 Est GFR ( Amer) > 60 Est GFR (Non-Af Amer) > 60 POC Glucose (mg/dL) 94 Random Glucose 102 Calcium 9.6 Total Bilirubin 0.5 AST 108 H D ALT 131 H Alkaline Phosphatase 82 Troponin I < 0.0120 Total Protein 7.7 Albumin 4.4 Globulin 3.4 Albumin/Globulin Ratio 1.3 Triglycerides 168 H Cholesterol 148 LDL Cholesterol Direct 98 HDL Cholesterol 23 L Blood Type Antibody Screen BBK History Checked 01/11/18 01/11/18 10:30 10:30 WBC RBC Hgb Hct MCV MCH MCHC RDW Plt Count MPV Neut % (Auto) Lymph % (Auto) Bollinger % (Auto) Eos % (Auto) Baso % (Auto) Neut # (Auto) Lymph # (Auto) Bollinger # (Auto) Eos # (Auto) Baso # (Auto) PT 12.6 INR 1.1 APTT 36.5 Sodium Potassium Chloride Carbon Dioxide Anion Gap BUN Creatinine Est GFR ( Amer) Est GFR (Non-Af Amer) POC Glucose (mg/dL) Random Glucose Calcium Total Bilirubin AST ALT Alkaline Phosphatase Troponin I Total Protein Albumin Globulin Albumin/Globulin Ratio Triglycerides Cholesterol LDL Cholesterol Direct HDL Cholesterol Blood Type A POSITIVE Antibody Screen Negative BBK History Checked Patient has bt Assessment & Plan (1) Neuropathic pain Status: Acute Priority: High (2) CVA (cerebral vascular accident) Status: Chronic Priority: High (3) Coagulopathy Status: Chronic (4) Migraine Status: Chronic (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
--- NOTE | 2018-01-11 20:07 | US ---
EXAM: US Duplex Bilateral Lower Extremity Veins EXAM DATE/TIME: 01/11/2018 5:29 PM CLINICAL HISTORY: 47 years old, female; Pain; Leg, lower; Bilateral; Additional info: R/O dvt TECHNIQUE: Real-time duplex ultrasound scan of the bilateral lower extremity veins integrating B-mode two-dimensional vascular structure, Doppler spectral analysis, color flow Doppler imaging and compression. COMPARISON: There are no prior studies for comparison. FINDINGS: Right deep veins: Common femoral, superficial femoral, popliteal and posterior tibial veins were evaluated. All veins examined are compressible. There are no intraluminal filling defects. There is expected blood flow on Doppler imaging. There is change in waveform with augmentation. Left deep veins: Common femoral, superficial femoral, popliteal and posterior tibial veins were evaluated. All veins examined are compressible. There are no intraluminal filling defects. There is expected blood flow on Doppler imaging. There is change in waveform with augmentation. Impression: No deep venous thrombosis in the visualized vascular segments of the lower extremities
[2018-01-12 00:31] VITALS: RESP 18
[2018-01-12 07:11] LABS: HEMOGLOBIN 12.5 g/dL (12.0-16.0); MEAN CELL VOLUME 92.3 fl (81.0-99.0); MEAN CORPUSCULAR HEMOGLOBIN 30.7 pg (27.0-31.0); MEAN CORPUSCULAR HGB CONC 33.2 g/dL (33.0-37.0); RBC 4.06 Mil/uL (3.80-5.20); RED CELL DISTRIBUTION WIDTH 13.7 % (11.5-14.5)
[2018-01-12 07:29] LABS: INR 1.1 (0.9-1.2); PARTIAL THROMBOPLASTIN TIME 32.5 Seconds (25.6-37.1); PROTHROMBIN TIME 12.2 Seconds (9.8-13.1)
[2018-01-12 07:36] LABS: T4 6.87 ug/dl (5.5-11.0)
[2018-01-12 07:39] LABS: ALB/GLOB RATIO 1.3 (1.0-2.1); ALBUMIN 3.6 g/dL (3.5-5.0); ALT/SGPT 120 U/L (9-52); AST/SGOT 79 U/L (14-36); BLOOD UREA NITROGEN 9 mg/dl (7-17); CALCIUM 8.8 mg/dL (8.4-10.2); GFR AFRICAN-AMERICAN > 60; GFR NON-AFRICAN AMERICAN > 60; HDL CHOLESTEROL 19 MG/DL (30-70); LDL CHOLESTEROL 88 mg/dL (0-129)
[2018-01-12] MEDS: Sodium Chloride 0.9% 1,000 ML IV SCH (08:46)
[2018-01-12 12:27] VITALS: BP 106/69; PULSE 85; TEMP 98.5; O2SAT 97
--- NOTE | 2018-01-12 12:59 | CARD ---
APPROVED REPORT EKG Measurement Heart [id number] ID [id number] <Conclusion> Normal sinus rhythm Normal ECG
--- NOTE | 2018-01-12 13:12 | CP.PCM.CON ---
History of Present Illness - History of Present Illness History of Present Illness: 47 year old female with a history of migraines, CVA with MTHFR on antiplatelet and therapeutic anticoagulation, admitted with right sided numbness/burning sensation. The patient notes to right arm and leg burning sensation for 2-3 days. She saw her neurologist who advised her to go to the hospital. Imaging done did not reveal any acute changes. Past medical history: Migraines, CVA, MTHFR mutation Past surgical history: None Family history: Mother had stroke in her 40s Social history: Denies tobacco, alcohol, and illicit drug use. Allergies: NKA Review of systems: All remaining review of systems including HEENT, cardiovascular, respiratory, gastrointestinal, genitourinary, musculoskeletal, dermatologic, neurologic, and psychiatric are negative unless mentioned in the HPI. Past Patient History - Infectious Disease Hx of Infectious Diseases: None - Past Medical History & Family History Past Medical History?: Yes - Past Social History Alcohol: None Drugs: Denies Home Situation {Lives}: With Family - CARDIAC Hx Cardiac Disorders: Yes (SEVERE SINUS BRADYCARDIA PRESENTLY BEING EVALUATED BY PCP) - PULMONARY Hx Respiratory Disorders: No - NEUROLOGICAL Hx Neurological Disorder: Yes (CVA, Migraine) - HEENT Hx Epistaxis: Yes - RENAL Hx Chronic Kidney Disease: No - ENDOCRINE/METABOLIC Hx Endocrine Disorders: No - HEMATOLOGICAL/ONCOLOGICAL Hx Blood Disorders: Yes (anemia) - INTEGUMENTARY Hx Dermatological Problems: No - MUSCULOSKELETAL/RHEUMATOLOGICAL Hx Falls: No - GASTROINTESTINAL Hx Gastrointestinal Disorders: Yes Hx Ulcer: Yes - GENITOURINARY/GYNECOLOGICAL Hx Genitourinary Disorders: No - PSYCHIATRIC Hx Psychophysiologic Disorder: Yes (anxiety) - SURGICAL HISTORY Hx Surgeries: Yes Hx Tubal Ligation: Yes - ANESTHESIA Hx Anesthesia: Yes Hx Anesthesia Reactions: No Hx Malignant Hyperthermia: No Meds Home Medications: Home Medication List Medication Instructions Recorded Confirmed Type Clopidogrel [Plavix] 75 mg PO DAILY 30 Days tab 01/12/18 Rx Dabigatran [Pradaxa] 150 mg PO BID 60 Days cap 01/12/18 Rx Famotidine [Pepcid] 20 mg PO BID #60 tab 01/12/18 Rx Meclizine [Meclizine*] 25 mg PO BID #60 tab 01/12/18 Rx Pregabalin [Lyrica] 50 mg PO TID PRN #90 cap 01/12/18 Rx Allergies/Adverse Reactions: Allergies Allergy/AdvReac Type Severity Reaction Status Date / Time eggplant Allergy NAUSEA Uncoded 10/01/17 12:40 - Medications Medications: Current Medications Acetaminophen (Tylenol 325mg Tab) 650 mg PO Q4 PRN PRN Reason: Pain, Mild (1-3) Atorvastatin Calcium (Lipitor) 20 mg PO HS [facility] Last Admin: 01/11/18 21:57 Dose: 20 mg Clopidogrel Bisulfate (Plavix) 75 mg PO DAILY [facility] Last Admin: 01/12/18 08:47 Dose: 75 mg Clopidogrel Bisulfate (Plavix) 75 mg PO DAILY [facility] Last Admin: 01/12/18 08:48 Dose: Not Given Dabigatran (Pradaxa) 150 mg PO BID [facility] PRN Reason: Protocol Last Admin: 01/12/18 08:47 Dose: 150 mg Famotidine (Pepcid) 20 mg PO BID [facility] Last Admin: 01/12/18 08:47 Dose: 20 mg Sodium Chloride (Sodium Chloride 0.9%) 1,000 mls @ 100 mls/hr IV .Q10H [facility] Last Admin: 01/12/18 08:46 Dose: 100 mls/hr Meclizine HCl (Antivert) 25 mg PO BID [facility] Last Admin: 01/12/18 08:47 Dose: 25 mg Pregabalin (Lyrica) 50 mg PO TID PRN PRN Reason: Pain, severe (8-10) Last Admin: 01/12/18 08:55 Dose: 50 mg Physical Exam - Head Exam Head Exam: ATRAUMATIC - Eye Exam Eye Exam: Normal appearance - ENT Exam ENT Exam: Mucous Membranes Dry - Respiratory Exam Respiratory Exam: NORMAL BREATHING PATTERN - Cardiovascular Exam Cardiovascular Exam: +S1, +S2 - GI/Abdominal Exam GI & Abdominal Exam: Normal Bowel Sounds - Extremities Exam Extremities exam: Positive for: normal inspection - Neurological Exam Neurological exam: Oriented x3 - Psychiatric Exam Psychiatric exam: Normal Affect, Normal Mood - Skin Skin Exam: Warm Results - Vital Signs Recent Vital Signs: Last Vital Signs Temp 98.5 F 01/12/18 12:27 Pulse 85 01/12/18 12:27 Resp 18 01/12/18 12:27 BP 106/69 01/12/18 12:27 Pulse Ox 97 01/12/18 12:27 - Labs Result Diagrams: 01/12/18 06:30 01/12/18 06:30 Labs: Laboratory Results - last 24 hr 01/11/18 01/12/18 01/12/18 11:42 06:30 06:30 WBC 8.0 RBC 4.06 Hgb 12.5 Hct 37.5 MCV 92.3 MCH 30.7 MCHC 33.2 RDW 13.7 Plt Count 368 PT 12.2 INR 1.1 APTT 32.5 Sodium Potassium Chloride Carbon Dioxide Anion Gap BUN Creatinine Est GFR ( Amer) Est GFR (Non-Af Amer) Random Glucose Hemoglobin A1c 5.8 Calcium Total Bilirubin AST ALT Alkaline Phosphatase Total Protein Albumin Globulin Albumin/Globulin Ratio Triglycerides Cholesterol LDL Cholesterol Direct HDL Cholesterol Thyroxine (T4) TSH 3rd Generation 01/12/18 06:30 WBC RBC Hgb Hct MCV MCH MCHC RDW Plt Count PT INR APTT Sodium 139 Potassium 4.0 Chloride 105 Carbon Dioxide 23 Anion Gap 15 BUN 9 Creatinine 0.8 Est GFR ( Amer) > 60 Est GFR (Non-Af Amer) > 60 Random Glucose 108 H Hemoglobin A1c Calcium 8.8 Total Bilirubin 0.3 AST 79 H D ALT 120 H Alkaline Phosphatase 64 Total Protein 6.4 Albumin 3.6 Globulin 2.8 Albumin/Globulin Ratio 1.3 Triglycerides 163 H Cholesterol 133 LDL Cholesterol Direct 88 HDL Cholesterol 19 L Thyroxine (T4) 6.87 TSH 3rd Generation 2.07 Assessment & Plan (1) MTHFR gene mutation Assessment and Plan: with CVA and arterial clotting on antiplatelet and therapeutic anticoagulation outpatient f/u Thank you for this interesting consult. Status: Acute
--- NOTE | 2018-01-12 15:14 | CP.PCM.DIS ---
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 (6) High cholesterol Status: Chronic Hospital Course - Lab Results Lab Results: Most Recent Lab Values WBC 8.0 K/uL (4.8-10.8) 01/12/18 06:30 RBC 4.06 Mil/uL (3.80-5.20) 01/12/18 06:30 Hgb 12.5 g/dL (12.0-16.0) 01/12/18 06:30 Hct 37.5 % (34.0-47.0) 01/12/18 06:30 MCV 92.3 fl (81.0-99.0) 01/12/18 06:30 MCH 30.7 pg (27.0-31.0) 01/12/18 06:30 MCHC 33.2 g/dL (33.0-37.0) 01/12/18 06:30 RDW 13.7 % (11.5-14.5) 01/12/18 06:30 Plt Count 368 K/uL (130-400) 01/12/18 06:30 MPV 7.8 fl (7.2-11.7) 01/11/18 10:30 Neut % (Auto) 71.2 % (50.0-75.0) 01/11/18 10:30 Lymph % (Auto) 17.1 % (20.0-40.0) L 01/11/18 10:30 [place] % (Auto) 7.8 % (0.0-10.0) 01/11/18 10:30 Eos % (Auto) 3.0 % (0.0-4.0) 01/11/18 10:30 Baso % (Auto) 0.9 % (0.0-2.0) 01/11/18 10:30 Neut # (Auto) 7.3 K/uL (1.8-7.0) H 01/11/18 10:30 Lymph # (Auto) 1.7 K/uL (1.0-4.3) 01/11/18 10:30 [place] # (Auto) 0.8 K/uL (0.0-0.8) 01/11/18 10:30 Eos # (Auto) 0.3 K/uL (0.0-0.7) 01/11/18 10:30 Baso # (Auto) 0.1 K/uL (0.0-0.2) 01/11/18 10:30 PT 12.2 Seconds (9.8-13.1) 01/12/18 06:30 INR 1.1 (0.9-1.2) 01/12/18 06:30 APTT 32.5 Seconds (25.6-37.1) 01/12/18 06:30 Sodium 139 mmol/l (132-148) 01/12/18 06:30 Potassium 4.0 MMOL/L (3.6-5.0) 01/12/18 06:30 Chloride 105 mmol/L (98-107) 01/12/18 06:30 Carbon Dioxide 23 mmol/L (22-30) 01/12/18 06:30 Anion Gap 15 (10-20) 01/12/18 06:30 BUN 9 mg/dl (7-17) 01/12/18 06:30 Creatinine 0.8 mg/dl (0.7-1.2) 01/12/18 06:30 Est GFR ( Amer) > 60 01/12/18 06:30 Est GFR (Non-Af Amer) > 60 01/12/18 06:30 POC Glucose (mg/dL) 94 mg/dL (65-110) 01/11/18 09:57 Random Glucose 108 mg/dL (65-105) H 01/12/18 06:30 Hemoglobin A1c 5.8 % (4.2-6.5) 01/11/18 11:42 Calcium 8.8 mg/dL (8.4-10.2) 01/12/18 06:30 Total Bilirubin 0.3 mg/dl (0.2-1.3) 01/12/18 06:30 AST 79 U/L (14-36) H D 01/12/18 06:30 ALT 120 U/L (9-52) H 01/12/18 06:30 Alkaline Phosphatase 64 U/L (38-126) 01/12/18 06:30 Troponin I < 0.0120 ng/mL (0.00-0.120) 01/11/18 10:30 Total Protein 6.4 G/DL (6.3-8.2) 01/12/18 06:30 Albumin 3.6 g/dL (3.5-5.0) 01/12/18 06:30 Globulin 2.8 gm/dL (2.2-3.9) 01/12/18 06:30 Albumin/Globulin Ratio 1.3 (1.0-2.1) 01/12/18 06:30 Triglycerides 163 mg/DL (0-149) H 01/12/18 06:30 Cholesterol 133 mg/dL (0-199) 01/12/18 06:30 LDL Cholesterol Direct 88 mg/dL (0-129) 01/12/18 06:30 HDL Cholesterol 19 MG/DL (30-70) L 01/12/18 06:30 Thyroxine (T4) 6.87 ug/dl (5.5-11.0) 01/12/18 06:30 TSH 3rd Generation 2.07 mIU/ML (0.46-4.68) 01/12/18 06:30 Blood Type A POSITIVE 01/11/18 10:30 Antibody Screen Negative 01/11/18 10:30 BBK History Checked Patient has bt 01/11/18 10:30 Discharge Exam - Head Exam Head Exam: NORMAL INSPECTION Discharge Plan - Follow Up Plan Condition: FAIR Disposition: HOME/ ROUTINE
== END 2018-01-12 15:45 | disposition home or self-care (01) | DRG 74 ==
LOC: H.ER 09:40 → H.ERHOLD 11:42 → H.TEL 16:26
PROVIDERS: ADMIT Internal Medicine Pulmonary Disease; ATTEND Internal Medicine Pulmonary Disease
DX: G62.9 Polyneuropathy, unspecified (principal); E72.12 Methylenetetrahydrofolate reductase deficiency; I82.B22 Chronic embolism and thrombosis of left subclavian vein; Z86.73 Personal history of transient ischemic attack (TIA), and cerebral infarction without residual deficits; G43.909 Migraine, unspecified, not intractable, without status migrainosus; E78.00 Pure hypercholesterolemia, unspecified; Z91.018 Allergy to other foods; F41.9 Anxiety disorder, unspecified

== ENCOUNTER 2018-03-21 13:43 | Inpatient (IN) | payer BC ==
[2018-03-21 13:44] VITALS: BMI 25.4
[2018-03-21] MEDS ORDERED: Sodium Chloride 0.9% 1,000 ML IV SCH (15:00)
[2018-03-21 15:12] LABS: BASO # 0.1 K/uL (0.0-0.2); BASO % 0.9 % (0.0-2.0); EOS # 0.2 K/uL (0.0-0.7); EOS % 2.5 % (0.0-4.0); HEMOGLOBIN 14.1 g/dL (12.0-16.0); LYMPH # 1.7 K/uL (1.0-4.3); LYMPH % 20.1 % (20.0-40.0); MEAN CELL VOLUME 92.4 fl (81.0-99.0); MEAN CORPUSCULAR HEMOGLOBIN 31.5 pg (27.0-31.0); MEAN CORPUSCULAR HGB CONC 34.1 g/dL (33.0-37.0); MEAN PLATELET VOLUME 7.9 fl (7.2-11.7); MONO # 0.6 K/uL (0.0-0.8); MONO % 7.7 % (0.0-10.0); NEUT # 5.8 K/uL (1.8-7.0); NEUT % 68.8 % (50.0-75.0); NRBC % 0.1 % (0.0-0.0); RBC 4.47 Mil/uL (3.80-5.20); WHITE BLOOD COUNT 8.4 K/uL (4.8-10.8)
--- NOTE | 2018-03-21 15:13 | ED PDOC ---
HPI: General Adult Time Seen by Provider: 03/21/18 14:35 Chief Complaint (Nursing): Dizziness/Lightheaded Chief Complaint (Provider): Weakness History Per: Patient History/Exam Limitations: no limitations Onset/Duration Of Symptoms: Hrs Have you had recent travel within the past 21 days to any of the following countries: [place], [place], [place] or [place]?: No Current Symptoms Are (Timing): Still Present Additional History Per: Patient Additional Complaint(s): 47yo female, with extensive history including anemia, 3 x CVA (walks with a cane , no residual deficits), comes to ER for evaluation of sudden onset left arm and leg weakness since 11am today. Patient states at 1pm, she felt mechanic insulator her left neck, prompting the ER visit. She is compliant with her medications and reports she was evaluated by her PMD Dr. Alejo yesterday due to recent leg swelling; she reports an increase in her Lasix dose due to the swelling. Otherwise, she denies any recent illnesses, sick contact; also denies any loss of consciousness, fever, chest pain, nausea, vomiting, shortness of breath or abdominal pain. Of note, patient does report a mild dizziness when asked. No other complaints. PMD: Dr. Alejo NIHSS Stroke Scale - Date/Time Evaluation Performed Date Performed: 03/21/18 Time Performed: 14:40 When Was NIHSS Performed: Baseline - How Severe is the Stroke Level of Consciousness: 0=Alert LOC to Questions: 0=Both comments correct LOC to commands: 0=Obeys both correctly Best Gaze: 0=Normal Visual: 0=No visual loss Facial: 0=Normal Motor Arm - Left: 0=No drift Motor Arm - Right: 0=No drift Motor Leg - Left: 0=No drift Motor Leg - Right: 0=No drift Limb Ataxia: 0=Absent Sensory: 0=Normal Best Language: 0=No aphasia Dysarthia: 0=Normal articulation Extinction & Inattention (Neglect): 0=Normal, no object Score: 0 Past Medical History Reviewed: Historical Data, Nursing Documentation, Vital Signs Vital Signs: Last Vital Signs Temp 98 F 03/25/18 12:03 Pulse 77 03/25/18 12:03 Resp 18 03/25/18 12:03 BP 110/72 03/25/18 12:03 Pulse Ox 96 03/25/18 12:03 - Medical History PMH: Anemia, Anxiety, CVA (x3), Gastrointestinal Ulcer, Migraine Denies: Chronic Kidney Disease - Surgical History Surgical History: No Surg Hx - Family History Family History: States: No Known Family Hx - Home Medications Home Medications: Ambulatory Orders Medication Instructions Recorded Clopidogrel [Plavix] 75 mg PO DAILY 30 Days tab 01/12/18 Atorvastatin [Lipitor] 10 mg PO HS 03/21/18 Dabigatran [Pradaxa] 150 mg PO Q12 03/21/18 Famotidine [Pepcid] 20 mg PO Q12 03/21/18 Ferrous Sulfate [Feosol] 325 mg PO DAILY 03/21/18 Fluticasone Nasal [Flonase] 2 spray PRABHAKAR DAILY PRN 03/21/18 Folic Acid 1 mg PO DAILY 03/21/18 Furosemide [Lasix] 20 mg PO DAILY 03/21/18 Meclizine [Meclizine*] 25 mg PO BID 03/21/18 Pregabalin [Lyrica] 75 mg PO Q8 03/21/18 Acetaminophen/Butalbital/Caf 1 tab PO Q8 #20 tab 03/25/18 [Fioricet] - Allergies Allergies/Adverse Reactions: Allergies Allergy/AdvReac Type Severity Reaction Status Date / Time eggplant Allergy NAUSEA Uncoded 03/21/18 13:50 Review of Systems ROS Statement: Except As Marked, All Systems Reviewed And Found Negative Constitutional: Negative for: Fever, Chills Cardiovascular: Negative for: Chest Pain Respiratory: Negative for: Shortness of Breath Gastrointestinal: Negative for: Vomiting, Abdominal Pain Neurological: Positive for: Weakness (left arm and left leg), Dizziness. Negative for: Numbness, Headache, Other (loss of consciousness) Physical Exam - Reviewed Nursing Documentation Reviewed: Yes Vital Signs Reviewed: Yes - Physical Exam Appears: Positive for: Non-toxic, No Acute Distress Head Exam: Positive for: ATRAUMATIC, NORMAL INSPECTION, NORMOCEPHALIC Skin: Positive for: Normal Color, Warm. Negative for: Pallor Eye Exam: Positive for: Normal appearance, EOMI, PERRL, Other (conjunctival pallor) ENT: Positive for: Other (pale lips) Neck: Positive for: Normal, Painless ROM, Supple Cardiovascular/Chest: Positive for: Regular Rate, Rhythm, Chest Non Tender. Negative for: Murmur Respiratory: Positive for: Normal Breath Sounds Pulses-Dorsalis Pedis (L): 2+ Pulses-Dorsalis Pedis (R): 2+ Pulses-Radial (L): 2+ Pulses-Radial (R): 2+ Gastrointestinal/Abdominal: Positive for: Normal Exam, Soft Back: Positive for: Normal Inspection Extremity: Positive for: Normal ROM, Other (5/5 mental tester strength bilateral upper extremities; 5/5 motor strength bilateral lower extremities). 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 Negative for : Motor/Sensory Deficits, Aphasia, Facial Droop - Laboratory Results Result Diagrams: 03/22/18 04:25 03/22/18 04:25 - ECG ECG: Positive for: Interpreted By Me, Viewed By Me ECG Rhythm: Positive for: Normal QRS, Normal ST Segment, Sinus Rhythm O2 Sat by Pulse Oximetry: 98 (RA) Pulse Ox Interpretation: Normal Medical Decision Making Medical Decision Making: A&P: Work up to r/o CVA CT head w/o contrast CTA head and neck Labs EKG Repeat NIH 16:52 --Radiologist called CTA head and neck shows some left sided vertebral artery filling defects. Good collateral but cannot rule out dissection. Symptoms remain unchanged. NIHSS stroke scale is still 0 and blood pressure is normal. 17:16 -- Case discussed with Dr. Alejo who is requesting Dr. 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 Blue to be made aware. Dr. Alejo agreeable with plan to admit to Tele and with further MRA imaging in the morning. Per Dr. Starr, patient placed on bedrest. Patient given Pradaxa and Aspirin PO. Labs including coags, thyroid and lipid panels to be repeated in the morning. Patient aware of plan for admission and is agreeable. Repat NIHSS remains 0; no new symptoms. Scribe Attestation: Documented by Kayla Miller, acting as a scribe for Leslie Tobar MD Provider Scribe Attestation: All medical record entries made by the Scribe were at my direction and personally dictated by me. I have reviewed the chart and agree that the record accurately reflects my personal performance of the history, physical exam, medical decision making, and the department course for this patient. I have also personally directed, reviewed, and agree with the discharge instructions and disposition. Disposition - Clinical Impression Clinical Impression: Left arm weakness - Patient ED Disposition Is Patient to be Admitted: Yes - Disposition Disposition Time: 17:16 Condition: STABLE
[2018-03-21 15:20] LABS: INR 1.1
[2018-03-21 15:21] LABS: ALB/GLOB RATIO 1.3 (1.0-2.1); ALBUMIN 4.6 g/dL (3.5-5.0); ALT/SGPT 50 U/L (9-52); AST/SGOT 43 U/L (14-36); BLOOD UREA NITROGEN 7 mg/dl (7-17); CALCIUM 9.7 mg/dL (8.4-10.2); GFR NON-AFRICAN AMERICAN > 60; HDL CHOLESTEROL 31 MG/DL (30-70); LIPASE 120 U/L (23-300)
[2018-03-21 15:23] LABS: PARTIAL THROMBOPLASTIN TIME 39.3 Seconds (25.6-37.1)
[2018-03-21 15:33] LABS: B-TYPE NATRIURETIC PEPTIDE 50.5 pg/ml (0-450); LDL CHOLESTEROL 123 mg/dL (0-129)
[2018-03-21] MEDS ORDERED: Sodium Chloride 0.9% 50 ML IV ONE ×2 (15:41→18:51)
[2018-03-21] MEDS ORDERED: Iodixanol 320 MG/ML 100 ML BOTTLE IV ONE (15:41)
--- NOTE | 2018-03-21 16:03 | CT ---
Date of service: 03/21/2018 PROCEDURE: CT HEAD WITHOUT CONTRAST. HISTORY: left sided weakness COMPARISON: Noncontrast head CT performed 01/11/18 TECHNIQUE: Axial computed tomography images were obtained through the head/brain without intravenous contrast. Radiation dose: Total exam DLP = 694.42 mGy-cm. This CT exam was performed using one or more of the following dose reduction techniques: Automated exposure control, adjustment of the mA and/or kV according to patient size, and/or use of iterative reconstruction technique. FINDINGS: HEMORRHAGE: No intracranial hemorrhage. BRAIN: No mass effect or edema. Intracranial atherosclerotic calcifications. The yang-white matter differentiation appears intact. Please note that MRI with diffusion imaging is more sensitive in the detection of acute ischemic event. VENTRICLES: No hydrocephalus. CALVARIUM: Unremarkable. PARANASAL SINUSES: Unremarkable as visualized. No significant inflammatory changes. MASTOID AIR CELLS: Unremarkable as visualized. No inflammatory changes. OTHER FINDINGS: None. IMPRESSION: No acute intracranial pathology identified. Findings as above.
--- NOTE | 2018-03-21 16:21 | RAD ---
HISTORY: left sided weakness COMPARISON: Chest x-ray performed 01/11/18 TECHNIQUE: Chest, one view. FINDINGS: LUNGS: No focal consolidation. Please note that chest x-ray has limited sensitivity for the detection of pulmonary masses. PLEURA: No significant pleural effusion identified. No definite pneumothorax . CARDIOVASCULAR: Heart size appears within normal limits. OSSEOUS STRUCTURES: Degenerative changes. VISUALIZED UPPER ABDOMEN: Unremarkable. OTHER FINDINGS: None. IMPRESSION: No focal consolidation identified.
--- NOTE | 2018-03-21 16:50 | CT ---
Date of service: 03/21/2018 PROCEDURE: CT Angiography of the Brain and Neck. HISTORY: left sided weakness with neck pain w/ CVA x 3 COMPARISON: None available. TECHNIQUE: CT angiography of the intracranial and neck arteries was performed. Coronal and sagittal maximum intensity projection reformatted images were generated. Contrast Dose: Visipaque 320, 95 cc Radiation dose:Total exam DLP = 411.51 mGy-cm. This CT exam was performed using one or more of the following dose reduction techniques: Automated exposure control, adjustment of the mA and/or kV according to patient size, and/or use of iterative reconstruction technique. FINDINGS: INTERNAL CEREBRAL ARTERIES: Unremarkable. The skull base, petrous, cavernous and supraclinoid segments are bilaterally widely patent. ANTERIOR CEREBRAL ARTERIES: Unremarkable. A1 and A2 segments are widely patent. Smaller distal branches unremarkable, as visualized. MIDDLE CEREBRAL ARTERIES: Unremarkable. M1 and M2 segments are widely patent. Perisylvian branches grossly symmetric. POSTERIOR CIRCULATION: Basilar Artery: Unremarkable. Distal Vertebral Arteries: The right vertebral artery is widely patent at its distal segment with trace opacification of the distal 3-4 mm of the left vertebral artery. Dissection or even potential inclusion of this limited distal segment of the left vertebral artery is not excluded though this could reflect further hypoplastic etiology as the cervical segment of the left vertebral artery more definitively hypoplastic. Posterior Cerebral Arteries: Unremarkable. Posterior Inferior Cerebellar Arteries: Unremarkable. NECK CTA: Common Carotid arteries: Conjoint origin of brachycephalic and left common carotid arteries. The bilateral common carotid appear widely patent from their origins to their bifurcations with no significant stenosis appreciated. No evidence to suggest common carotid artery dissection. Internal Carotid arteries: No significant stenosis is appreciated throughout the cervical internal carotid artery segments bilaterally and there is no evidence of dissection either. External Carotid arteries: Appear unremarkable bilaterally. Vertebral arteries: The bilateral vertebral arteries appear normal in caliber from their origins to their junction with the basilar artery. No significant stenosis or definite pattern of dissection. ANEURYSM/ VASCULAR MALFORMATIONS: None. OTHER FINDINGS: None. IMPRESSION: 1. The distal left vertebral artery is not identified as it approaches the foramen magnum up to the distal most 3-4 mm. Proximal to this level, the left vertebral artery appears hypoplastic. Segmental dissection or spur severe spasm/stenosis is difficult to exclude though this could reflect further hypoplasia. The basilar artery and right vertebral artery appear robust in enhancement. 2. Remainder the CT angiogram of the brain and neck appears remarkable for conjoint 2 origin brachycephalic and left common carotid arteries. Findings discussed with Dr. Tobar with written down and read back verification 03/21/2018 4:40 p.m..
[2018-03-21] MEDS ORDERED: Gadodiamide 287 MG/ML VIAL (15ML) IV ONE (18:51)
[2018-03-22 05:32] LABS: HEMOGLOBIN 12.8 g/dL (12.0-16.0); MEAN CELL VOLUME 93.4 fl (81.0-99.0); MEAN CORPUSCULAR HEMOGLOBIN 30.7 pg (27.0-31.0); MEAN CORPUSCULAR HGB CONC 32.9 g/dL (33.0-37.0); RBC 4.16 Mil/uL (3.80-5.20); RED CELL DISTRIBUTION WIDTH 14.1 % (11.5-14.5); WHITE BLOOD COUNT 7.8 K/uL (4.8-10.8)
[2018-03-22 05:49] LABS: PARTIAL THROMBOPLASTIN TIME 43.9 Seconds (25.6-37.1)
[2018-03-22 06:13] LABS: T4 7.42 ug/dl (5.5-11.0)
[2018-03-22 06:15] LABS: LDL CHOLESTEROL 118 mg/dL (0-129)
[2018-03-22 06:20] LABS: INR 1.2; PROTHROMBIN TIME 12.9 Seconds (9.8-13.1)
[2018-03-22 06:21] LABS: ALB/GLOB RATIO 1.3 (1.0-2.1); ALBUMIN 3.7 g/dL (3.5-5.0); ALT/SGPT 52 U/L (9-52); AST/SGOT 38 U/L (14-36); BLOOD UREA NITROGEN 9 mg/dl (7-17); CALCIUM 9.4 mg/dL (8.4-10.2); GFR NON-AFRICAN AMERICAN > 60; HDL CHOLESTEROL 25 MG/DL (30-70)
--- NOTE | 2018-03-22 07:54 | CARD ---
APPROVED REPORT Date of service: 03/21/2018 EKG Measurement Heart [id number] <Conclusion> Normal sinus rhythm Normal ECG
[2018-03-22] MEDS: Sodium Chloride 0.9% 1,000 ML IV SCH ×2 (09:48→16:12)
--- NOTE | 2018-03-22 12:40 | MRI ---
Date of service: 03/21/2018 PROCEDURE: Magnetic Resonance Angiography Brain HISTORY: left sided weakness with previous cva COMPARISON: Brain MR angiogram without contrast 01/11/2018. Head and neck CT angiogram 03/21/2018. TECHNIQUE: 3D time of flight MR angiography of the intracranial arteries was performed. Rotating maximum intensity projection images were generated. FINDINGS: INTERNAL CAROTID ARTERIES: Unremarkable. The skull base, petrous, cavernous and supraclinoid segments are bilaterally widely patient. ANTERIOR CEREBRAL ARTERIES: Unremarkable. A1 and A2 segments are widely patent. Smaller distal branches unremarkable, as visualized. MIDDLE CEREBRAL ARTERIES: Unremarkable. M1 and M2 segments are widely patent. Perisylvian branches grossly symmetric. POSTERIOR CIRCULATION: Basilar Artery: Remains widely patent. Distal Vertebral Arteries: The intracranial right vertebral artery remains widely patent with a minimal patent segment of the distal left vertebral artery. Majority of intracranial left vertebral artery is not identified suggesting either segmental occlusion once again or gross hypoplasia. No interval changes identified here. Posterior Cerebral Arteries: No significant stenosis or definite occlusion. Posterior Inferior Cerebellar Arteries: Right PICA remains patent and unremarkable grossly with the left PICA not identified once again. ANEURYSM/ VASCULAR MALFORMATIONS: None. OTHER FINDINGS: None. IMPRESSION: 1. Stable right vertebral artery and basilar artery which are widely patent with only a short segment of the distal left vertebral artery identified at its junction with the right vertebral artery and basilar artery. 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 2. No new stenosis or occlusion appreciable throughout the remainder of the intracranial MR angiogram.
--- NOTE | 2018-03-22 12:52 | CP.PCM.HP ---
History of Present Illness - History of Present Illness History of Present Illness: CC: Weakness Left Arm/L Leg. 47 y/o F, Hx CVA 09/2017, Migraine, came to ED [facility], [place] to be evaluated for weaknesses on LLE and LUE with diminished sensation to LUE, associated to dizziness, tingling on hands, lightheaded and stiffness on L side of neck, onset AM DOA. Worsening symptoms: Found with distal occlusion of her L vertebral artery on head CTA Hx of Left cerebellar infarct x2 and Left Suclavian vein thrombosis Aggravated factor: Walking/exercise. Pt denied: Fever, chills, n/v/d, abdominal pain, back pain, urinary symptoms, CP, LOC, syncope, SOB, cough, sick contact, recent travel out of [facility]. CXR: No focal consolidation. EKG: Normal sinus rhythm. Review of Systems - Constitutional Constitutional: Weakness - EENT Eyes: Requires Corrective Lenses Ears: Other (negative) Nose/Mouth/Throat: Other (neck stiffness L side) - Cardiovascular Cardiovascular: Lightheadedness - Respiratory Respiratory: Other (negative) - Gastrointestinal Gastrointestinal: Other (negative) - Genitourinary Genitourinary: Other (negative) - Musculoskeletal Musculoskeletal: Other (negative) - Integumentary Integumentary: Other (negative) - Neurological Neurological: Abnormal Gait, Dizziness, Focal Weakness, Tingling - Psychiatric Psychiatric: Other (negative) - Endocrine Endocrine: Other (negative) - Hematologic/Lymphatic Hematologic: Other (negative) Past Patient History - Infectious Disease Hx of Infectious Diseases: None - Past Medical History & Family History Past Medical History?: Yes Pertinent Family History: Unknown - Past Social History Smoking Status: Never Smoked Alcohol: None Drugs: Denies Home Situation {Lives}: With Family - CARDIAC Hx Cardiac Disorders: Yes ( SINUS BRADYCARDIA) - PULMONARY Hx Respiratory Disorders: No - NEUROLOGICAL Hx Neurological Disorder: Yes HX Cerebrovascular Accident: Yes Hx Migraine: Yes - HEENT Hx HEENT Problems: Yes Hx Epistaxis: Yes - RENAL Hx Chronic Kidney Disease: No - ENDOCRINE/METABOLIC Hx Endocrine Disorders: No - HEMATOLOGICAL/ONCOLOGICAL Hx Blood Disorders: Yes Hx Anemia: Yes - INTEGUMENTARY Hx Dermatological Problems: No - MUSCULOSKELETAL/RHEUMATOLOGICAL Hx Musculoskeletal Disorders: Yes Hx Falls: Yes - GASTROINTESTINAL Hx Gastrointestinal Disorders: Yes Hx Ulcer: Yes - GENITOURINARY/GYNECOLOGICAL Hx Genitourinary Disorders: No - PSYCHIATRIC Hx Psychophysiologic Disorder: Yes Hx Anxiety: Yes Hx Substance Use: No - SURGICAL HISTORY Hx Surgeries: Yes Hx Tubal Ligation: Yes - ANESTHESIA Hx Anesthesia: Yes Hx Anesthesia Reactions: No Hx Malignant Hyperthermia: No Meds Home Medications: Home Medication List Medication Instructions Recorded Confirmed Type Acetaminophen/Butalbital/Caf 1 tab PO Q8 #20 tab 03/25/18 Rx [Fioricet] Allergies/Adverse Reactions: Allergies Allergy/AdvReac Type Severity Reaction Status Date / Time eggplant Allergy NAUSEA Uncoded 03/21/18 13:50 Physical Exam - Constitutional Appears: No Acute Distress - Head Exam Head Exam: NORMAL INSPECTION - Eye Exam Eye Exam: PERRL - ENT Exam ENT Exam: Normal Exam - Neck Exam Neck exam: Positive for: Tenderness Additional comments: L neck posterior - Respiratory Exam Respiratory Exam: Clear to Auscultation Bilateral - Cardiovascular Exam Cardiovascular Exam: REGULAR RHYTHM - GI/Abdominal Exam GI & Abdominal Exam: Normal Bowel Sounds, Soft - Extremities Exam Extremities exam: Positive for: tenderness (L shoulder) - Back Exam Back exam: NORMAL INSPECTION - Neurological Exam Neurological exam: Alert, Oriented x3 Additional comments: Weakness LUE, decreased sensation , numbness LUE, no facial droop, craneal nerves 2-12 normal, moves well rest of extremities - Psychiatric Exam Psychiatric exam: Normal Mood - Skin Skin Exam: Warm Results - Vital Signs Recent Vital Signs: Last Vital Signs Temp 98.2 F 03/22/18 12:52 Pulse 74 03/22/18 12:52 Resp 18 03/22/18 12:52 BP 111/71 03/22/18 12:52 Pulse Ox 96 03/22/18 12:52 reviewed Lui.Sammy - Labs Result Diagrams: 03/22/18 04:25 03/22/18 04:25 Labs: Laboratory Results - last 24 hr 03/21/18 03/21/18 03/21/18 14:50 14:50 14:50 WBC 8.4 RBC 4.47 Hgb 14.1 Hct 41.3 MCV 92.4 MCH 31.5 H MCHC 34.1 RDW 14.0 Plt Count 423 H MPV 7.9 Neut % (Auto) 68.8 Lymph % (Auto) 20.1 Gentry % (Auto) 7.7 Eos % (Auto) 2.5 Baso % (Auto) 0.9 Neut # (Auto) 5.8 Lymph # (Auto) 1.7 Gentry # (Auto) 0.6 Eos # (Auto) 0.2 Baso # (Auto) 0.1 ESR 44 H Retic Count PT INR APTT Sodium 140 Potassium 3.9 Chloride 104 Carbon Dioxide 24 Anion Gap 16 BUN 7 Creatinine 0.7 Est GFR ( Amer) > 60 Est GFR (Non-Af Amer) > 60 POC Glucose (mg/dL) Random Glucose 102 Hemoglobin A1c Lactic Acid Calcium 9.7 Total Bilirubin 0.3 AST 43 H D ALT 50 Alkaline Phosphatase 95 Troponin I < 0.0120 NT-Pro-B Natriuret Pep 50.5 Total Protein 8.0 Albumin 4.6 Globulin 3.4 Albumin/Globulin Ratio 1.3 Triglycerides 250 H D Cholesterol 194 LDL Cholesterol Direct 123 HDL Cholesterol 31 Lipase 120 Thyroxine (T4) Beta HCG, Quant < 2.39 Alcohol, Quantitative < 10 Blood Type Antibody Screen BBK History Checked 03/21/18 03/21/18 03/21/18 14:50 14:50 14:50 WBC RBC Hgb Hct MCV MCH MCHC RDW Plt Count MPV Neut % (Auto) Lymph % (Auto) Gentry % (Auto) Eos % (Auto) Baso % (Auto) Neut # (Auto) Lymph # (Auto) Gentry # (Auto) Eos # (Auto) Baso # (Auto) ESR Retic Count 1.9 H PT 12.0 INR 1.1 APTT 39.3 H Sodium Potassium Chloride Carbon Dioxide Anion Gap BUN Creatinine Est GFR ( Amer) Est GFR (Non-Af Amer) POC Glucose (mg/dL) Random Glucose Hemoglobin A1c Lactic Acid 1.8 Calcium Total Bilirubin AST ALT Alkaline Phosphatase Troponin I NT-Pro-B Natriuret Pep Total Protein Albumin Globulin Albumin/Globulin Ratio Triglycerides Cholesterol LDL Cholesterol Direct HDL Cholesterol Lipase Thyroxine (T4) Beta HCG, Quant Alcohol, Quantitative Blood Type Antibody Screen BBK History Checked 03/21/18 03/21/18 03/21/18 14:55 14:57 15:45 WBC RBC Hgb Hct MCV MCH MCHC RDW Plt Count MPV Neut % (Auto) Lymph % (Auto) Gentry % (Auto) Eos % (Auto) Baso % (Auto) Neut # (Auto) Lymph # (Auto) Gentry # (Auto) Eos # (Auto) Baso # (Auto) ESR Retic Count PT INR APTT Sodium Potassium Chloride Carbon Dioxide Anion Gap BUN Creatinine Est GFR ( Amer) Est GFR (Non-Af Amer) POC Glucose (mg/dL) 93 Random Glucose Hemoglobin A1c Lactic Acid Calcium Total Bilirubin AST ALT Alkaline Phosphatase Troponin I NT-Pro-B Natriuret Pep Total Protein Albumin Globulin Albumin/Globulin Ratio Triglycerides Cholesterol LDL Cholesterol Direct HDL Cholesterol Lipase Thyroxine (T4) Beta HCG, Quant Alcohol, Quantitative Blood Type Cancelled A POSITIVE Antibody Screen Cancelled Negative BBK History Checked Cancelled Patient has bt 03/21/18 03/22/18 03/22/18 17:20 04:25 04:25 WBC 7.8 RBC 4.16 Hgb 12.8 Hct 38.9 MCV 93.4 MCH 30.7 MCHC 32.9 L RDW 14.1 Plt Count 365 MPV Neut % (Auto) Lymph % (Auto) Gentry % (Auto) Eos % (Auto) Baso % (Auto) Neut # (Auto) Lymph # (Auto) Gentry # (Auto) Eos # (Auto) Baso # (Auto) ESR Retic Count PT INR APTT Sodium 141 Potassium 3.8 Chloride 107 Carbon Dioxide 25 Anion Gap 13 BUN 9 Creatinine 0.8 Est GFR ( Amer) > 60 Est GFR (Non-Af Amer) > 60 POC Glucose (mg/dL) Random Glucose 115 H Hemoglobin A1c 6.3 Lactic Acid Calcium 9.4 Total Bilirubin 0.2 AST 38 H ALT 52 Alkaline Phosphatase 79 Troponin I NT-Pro-B Natriuret Pep Total Protein 6.5 Albumin 3.7 Globulin 2.8 Albumin/Globulin Ratio 1.3 Triglycerides 209 H Cholesterol 181 LDL Cholesterol Direct 118 HDL Cholesterol 25 L Lipase Thyroxine (T4) 7.42 Beta HCG, Quant Alcohol, Quantitative Blood Type Antibody Screen BBK History Checked 03/22/18 04:25 WBC RBC Hgb Hct MCV MCH MCHC RDW Plt Count MPV Neut % (Auto) Lymph % (Auto) Gentry % (Auto) Eos % (Auto) Baso % (Auto) Neut # (Auto) Lymph # (Auto) Gentry # (Auto) Eos # (Auto) Baso # (Auto) ESR Retic Count PT 12.9 INR 1.2 APTT 43.9 H Sodium Potassium Chloride Carbon Dioxide Anion Gap BUN Creatinine Est GFR ( Amer) Est GFR (Non-Af Amer) POC Glucose (mg/dL) Random Glucose Hemoglobin A1c Lactic Acid Calcium Total Bilirubin AST ALT Alkaline Phosphatase Troponin I NT-Pro-B Natriuret Pep Total Protein Albumin Globulin Albumin/Globulin Ratio Triglycerides Cholesterol LDL Cholesterol Direct HDL Cholesterol Lipase Thyroxine (T4) Beta HCG, Quant Alcohol, Quantitative Blood Type Antibody Screen BBK History Checked reviewed J.P. - EKG Data EKG comments: reviewed J.P. - Imaging and Cardiology Chest x-ray Status: Report reviewed by me (TessieP.) CT scan - head Status: Report reviewed by me (J.P.) Additional comment: Neck CT, Brain MRI Reviewed J.P. 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
--- NOTE | 2018-03-22 13:36 | MRI ---
Date of service: 03/21/2018 PROCEDURE: MR Angiography of the neck with and without contrast HISTORY: left sided weakness w/ previous cva COMPARISON: CT angiogram of the neck 03/21/2018 as well as prior neck MR angiogram without contrast 01/11/2018. TECHNIQUE: Contrast enhanced and [id number] angiography of the neck was performed. Rotating 3D maximum intensity projection images of the cervical carotid and vertebral arteries were generated. FINDINGS: RIGHT CAROTID ARTERIES: Common Carotid Artery: Normal. Carotid Bifurcation: Normal. Internal Carotid Artery:The proximal cervical ICA appears artifactually small which is not demonstrated in the source images of this examination or in the prior CTA of the head and neck from 03/21/2018. Artifacts are felt to cause this appearance during MIP reconstruction External Carotid Artery (proximal branches): Normal. LEFT CAROTID ARTERIES: Common Carotid Artery: Normal. Carotid Bifurcation: Normal. Internal Carotid Artery:Normal. External Carotid Artery (proximal branches): Normal. VERTEBRAL ARTERIES: Right Vertebral Artery: The a patent without significant stenosis from origin to junction with the basilar artery. Left Vertebral Artery: A tiny portion of the left vertebral artery is identified immediately proximal to its junction with the right vertebral artery and basilar artery. Nearly the entire left vertebral artery is not identified during the MIP reconstruction due to its hypoplastic size. It is identified in the source images of the 2 dimensional noncontrast MR angiogram up to the lower foramen magnum level and and then it is not visualized frontal the short normal caliber segment at the junction with the vertebrobasilar confluence. OTHER FINDINGS: None. IMPRESSION: 1. 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 The appearance is unchanged compared to prior brain MR angiogram 01/11/2018 and CTA of the head and neck dated 09/21/2017. A short segment remains patent proximal to the vertebrobasilar confluence. 2. No significant common or internal carotid artery stenosis. Widely patent right vertebral artery and basilar artery reiterated.
--- NOTE | 2018-03-22 16:36 | CP.PCM.CON ---
History of Present Illness - History of Present Illness History of Present Illness: 47 yr old right handed woman with pmh of several strokes, left parietal, left cerebellum, not a tpa candidate due to onset of symptoms. On last visit, Mrs Rich presented with acute left sided weakness that was nonspecific, was found to be hypercoagulable and was discharged home on anticoagulant. On discharge she was strong in her left arm and there was no paresthesias. Yesterday, she presented with about 6 hour onset of left arm and left leg weakness with paresthesias in the same limb, accompanied with warmth in her left neck and fatigue. 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 On exam today, she has an NIH stroke scale of 2, with left arm drift, and left arm decreased sensation and no other deficits. Otherwise, she denies any recent illnesses, sick contact; also denies any loss of consciousness, fever, chest pain, nausea, vomiting, shortness of breath or abdominal pain. Of note, patient does report a mild dizziness when asked. No other complaints. Neuro exam: Alert and oriented x3 CN 2-12 intact EOMI, VFF MMSE 30/30 No aphasia. Speech fluent. Names and repeats. Motor: RUE 5/5, LUE 3/5, Sensory: decreases ft, pin in left upper and lower limb, upper more than lower. No cerebellar abnormalites- normal finger to nose Normal reflexes Past Patient History - Infectious Disease Hx of Infectious Diseases: None - Past Medical History & Family History Past Medical History?: Yes - Past Social History Smoking Status: Never Smoked - CARDIAC Hx Cardiac Disorders: Yes (SEVERE SINUS BRADYCARDIA PRESENTLY BEING EVALUATED BY PCP) - PULMONARY Hx Respiratory Disorders: No - NEUROLOGICAL HX Cerebrovascular Accident: Yes Hx Migraine: Yes - HEENT Hx Epistaxis: Yes - RENAL Hx Chronic Kidney Disease: No - ENDOCRINE/METABOLIC Hx Endocrine Disorders: No - HEMATOLOGICAL/ONCOLOGICAL Hx Anemia: Yes - INTEGUMENTARY Hx Dermatological Problems: No - MUSCULOSKELETAL/RHEUMATOLOGICAL Hx Falls: Yes - GASTROINTESTINAL Hx Gastrointestinal Disorders: Yes Hx Ulcer: Yes - GENITOURINARY/GYNECOLOGICAL Hx Genitourinary Disorders: No - PSYCHIATRIC Hx Substance Use: No - SURGICAL HISTORY Hx Surgeries: Yes Hx Tubal Ligation: Yes - ANESTHESIA Hx Anesthesia: Yes Hx Anesthesia Reactions: No Hx Malignant Hyperthermia: No Meds Allergies/Adverse Reactions: Allergies Allergy/AdvReac Type Severity Reaction Status Date / Time eggplant Allergy NAUSEA Uncoded 03/21/18 13:50 - Medications Medications: Current Medications Atorvastatin Calcium (Lipitor) 10 mg PO HS [facility] Last Admin: 03/21/18 22:41 Dose: 10 mg Clopidogrel Bisulfate (Plavix) 75 mg PO DAILY [facility] Last Admin: 03/22/18 09:46 Dose: 75 mg Dabigatran (Pradaxa) 150 mg PO BID [facility] PRN Reason: Protocol Last Admin: 03/22/18 09:46 Dose: 150 mg Famotidine (Pepcid) 20 mg PO Q12 [facility] Last Admin: 03/22/18 09:45 Dose: 20 mg Ferrous Sulfate (Feosol) 325 mg PO DAILY [facility] Last Admin: 03/22/18 09:45 Dose: 325 mg Fluticasone Propionate (Flonase) 2 spr PRABHAKAR DAILY PRN PRN Reason: Nasal congestion Folic Acid (Folic Acid) 1 mg PO DAILY [facility] Last Admin: 03/22/18 09:46 Dose: 1 mg Furosemide (Lasix) 20 mg PO DAILY [facility] Last Admin: 03/22/18 09:46 Dose: 20 mg Sodium Chloride (Sodium Chloride 0.9%) 1,000 mls @ 80 mls/hr IV .[id number] [facility] Stop: 03/23/18 02:54 Last Admin: 03/22/18 16:12 Dose: Not Given Meclizine HCl (Antivert) 25 mg PO BID [facility] Last Admin: 03/22/18 09:45 Dose: 25 mg Pregabalin (Lyrica) 75 mg PO Q12 [facility] Last Admin: 03/22/18 09:50 Dose: 75 mg Results - Vital Signs Recent Vital Signs: Last Vital Signs Temp 98.1 F 03/22/18 15:47 Pulse 74 03/22/18 15:47 Resp 20 03/22/18 15:47 BP 111/76 03/22/18 15:47 Pulse Ox 95 03/22/18 15:47 - Labs Result Diagrams: 03/22/18 04:25 03/22/18 04:25 Labs: Laboratory Results - last 24 hr 03/21/18 03/21/18 03/22/18 15:45 17:20 04:25 WBC 7.8 RBC 4.16 Hgb 12.8 Hct 38.9 MCV 93.4 MCH 30.7 MCHC 32.9 L RDW 14.1 Plt Count 365 PT INR APTT Sodium Potassium Chloride Carbon Dioxide Anion Gap BUN Creatinine Est GFR ( Amer) Est GFR (Non-Af Amer) Random Glucose Hemoglobin A1c 6.3 Calcium Total Bilirubin AST ALT Alkaline Phosphatase Total Protein Albumin Globulin Albumin/Globulin Ratio Triglycerides Cholesterol LDL Cholesterol Direct HDL Cholesterol Thyroxine (T4) Blood Type A POSITIVE Antibody Screen Negative 03/22/18 03/22/18 04:25 04:25 WBC RBC Hgb Hct MCV MCH MCHC RDW Plt Count PT 12.9 INR 1.2 APTT 43.9 H Sodium 141 Potassium 3.8 Chloride 107 Carbon Dioxide 25 Anion Gap 13 BUN 9 Creatinine 0.8 Est GFR ( Amer) > 60 Est GFR (Non-Af Amer) > 60 Random Glucose 115 H Hemoglobin A1c Calcium 9.4 Total Bilirubin 0.2 AST 38 H ALT 52 Alkaline Phosphatase 79 Total Protein 6.5 Albumin 3.7 Globulin 2.8 Albumin/Globulin Ratio 1.3 Triglycerides 209 H Cholesterol 181 LDL Cholesterol Direct 118 HDL Cholesterol 25 L Thyroxine (T4) 7.42 Blood Type Antibody Screen Assessment & Plan - Assessment and Plan (Free Text) Assessment: 47 yr old woman who is baseline hypercoagulable, s/p 3 embolic/thrombotic strokes, in bihemispheric regions, with vertebral and carotid artery stenosis, who is here with possible new ischemic event, in the right subcortical regions. We will start stroke workup and she is not a TPA candidate. Plan: 1. Add aspirin to pradaxa and plavix 2. MRI brain stat without contrast 3. ECHO if MRI brain positive for stroke. 4. PT/st/ot 5. Lipid profile. Thank you for this interesting consult. Dr. Starr with Dr.Cassandra Hill,DO, PGY1
[2018-03-23] MEDS ORDERED: Sodium Chloride 0.9% 1,000 ML IV SCH (10:30)
--- NOTE | 2018-03-23 14:00 | CARD ---
APPROVED REPORT Date of service: 03/23/2018 EXAM: Two-dimensional and M-mode echocardiogram with Doppler and color Doppler. Other Information Quality : GoodRhythm : NSR INDICATION CVA/TIA 2D DIMENSIONS IVSd1.10 (0.7-1.1cm)LVDd3.96 (3.9-5.9cm) LVOT Diameter1.45 (1.8-2.4cm)PWd0.75 (0.7-1.1cm) IVSs1.32 (0.8-1.2cm)LVDs1.95 (2.5-4.0cm) FS (%) 50.8 %PWs1.56 (0.8-1.2cm) M-Mode DIMENSIONS Left Atrium (MM)3.70 (2.5-4.0cm)IVSd1.05 (0.7-1.1cm) Aortic Root2.41 (2.2-3.7cm)LVDd4.01 (4.0-5.6cm) Aortic Cusp Exc.1.72 (1.5-2.0cm)PWd0.84 (0.7-1.1cm) IVSs1.53 cmFS (%) 54 % LVDs1.84 (2.0-3.8cm)PWs1.79 cm Aortic Valve AoV Peak Vjscgtpx808.2cm/sAoV VTI25.7cmAO Peak GR.9mmHg LVOT Peak Awxiqggc623.9cm/sLVOT VTI25.44cmAO Mean GR.5mmHg Mitral Valve MV E Zobcbkpw43.8cm/sMV DECEL [id number] A Shjvmcuk21.0cm/s MV QZV94plM/A ratio1.1MVA (PHT)3.66cm2 TDI Lateral E' Peak V11.73cm/sMedial E' Peak V9.37cm/sE/Lateral E'6.3 E/Medial E'7.9 Pulmonary Valve PV Peak Ktvttwon760.9cm/s Tricuspid Valve TR Peak Zgwbjyqk496ks/sRAP [id number] Peak Gr.19mmHg [id number] LEFT VENTRICLE The left ventricle is normal size. There is normal left ventricular wall thickness. The left ventricular systolic function is normal. The estimated ejection fraction is 65% No regional wall motion abnormalities noted.. The left ventricular diastolic function is normal. No left ventricle thrombus noted on this study. There is no ventricular septal defect visualized. There is no mass noted in the left ventricle. RIGHT VENTRICLE The right ventricle is normal size. There is normal right ventricular wall thickness. The right ventricular systolic function is normal. ATRIA The left atrium size is normal. The right atrium size is normal. The interatrial septum is intact with no evidence for an atrial septal defect. AORTIC VALVE The aortic valve is normal in structure. No aortic regurgitation is present. There is no aortic valvular stenosis. MITRAL VALVE The mitral valve is normal in structure. There is no mitral valve stenosis. There is trivial mitral valve regurgitation noted. TRICUSPID VALVE The tricuspid valve is normal in structure. There is mild tricuspid valve regurgitation noted. PASP within normal limits PULMONIC VALVE The pulmonary valve is normal in structure. There is trivial pulmonic valvular regurgitation. GREAT VESSELS The aortic root is normal in size. The ascending aorta is normal in size. The pulmonary artery is normal. The IVC is normal in size and collapses >50% with inspiration. PERICARDIAL EFFUSION There is no pericardial effusion. <Conclusion> Mild TR/trivial PI with normal PAP Otherwise essentially normal transthoracic echocardiogram. The estimated ejection fraction is 65%
--- NOTE | 2018-03-23 17:06 | CP.PCM.PN ---
Subjective - Date & Time of Evaluation Date of Evaluation: 03/23/18 Time of Evaluation: 17:00 - Subjective Subjective: F/U Acute CVA sensation of pulling in the left neck and left shoulder, heaviness in the left U/E, rest of extremities no complains, headache Objective - Vital Signs/Intake and Output Vital Signs (last 24 hours): Temp Pulse Resp BP Pulse Ox 98.8 F 83 20 126/79 97 03/23/18 15:56 03/23/18 15:56 03/23/18 15:56 03/23/18 15:56 03/23/18 15:56 - Medications Medications: Current Medications Acetaminophen (Tylenol 325mg Tab) 650 mg PO Q4 PRN PRN Reason: Headache Last Admin: 03/23/18 15:03 Dose: 650 mg Aspirin (Ecotrin) [address] [facility] Last Admin: 03/23/18 09:11 Dose: 81 mg Atorvastatin Calcium (Lipitor) [address] [facility] Last Admin: 03/22/18 21:05 Dose: 10 mg Clopidogrel Bisulfate (Plavix) [address] [facility] Last Admin: 03/23/18 09:11 Dose: 75 mg Dabigatran (Pradaxa) [address] [facility] PRN Reason: Protocol Last Admin: 03/23/18 09:10 Dose: 150 mg Famotidine (Pepcid) [address] [facility] Last Admin: 03/23/18 09:11 Dose: 20 mg Ferrous Sulfate (Feosol) [address] [facility] Last Admin: 03/23/18 09:11 Dose: 325 mg Fluticasone Propionate (Flonase) 2 spr PRABHAKAR DAILY PRN PRN Reason: Nasal congestion Folic Acid (Folic Acid) [address] [facility] Last Admin: 03/23/18 09:11 Dose: 1 mg Furosemide (Lasix) [address] [facility] Last Admin: 03/23/18 09:10 Dose: 20 mg Sodium Chloride (Sodium Chloride 0.9%) 1,000 mls @ 100 mls/hr IV .Q10H [facility] Stop: 03/24/18 10:24 Meclizine HCl (Antivert) [address] [facility] Last Admin: 03/23/18 09:11 Dose: 25 mg Pregabalin (Lyrica) [address] [facility] Last Admin: 03/23/18 09:10 Dose: 75 mg - Labs Labs: 03/22/18 04:25 03/22/18 04:25 PT 12.9 Seconds (9.8-13.1) 03/22/18 04:25 INR 1.2 03/22/18 04:25 APTT 36.6 Seconds (25.6-37.1) 03/23/18 06:00 - Constitutional Appears: No Acute Distress - Head Exam Head Exam: NORMAL INSPECTION - Eye Exam Eye Exam: PERRL - ENT Exam ENT Exam: Normal Exam - Neck Exam Neck Exam: Tenderness (L posterior neck) - Respiratory Exam Respiratory Exam: Clear to Ausculation Bilateral - Cardiovascular Exam Cardiovascular Exam: REGULAR RHYTHM - GI/Abdominal Exam GI & Abdominal Exam: Soft, Normal Bowel Sounds - Extremities Exam Extremities Exam: Tenderness (L shoulder) - Back Exam Back Exam: NORMAL INSPECTION - Neurological Exam Neurological Exam: Alert, CN II-XII Intact, Oriented x3 Additional comments: weakness MACRINA with decreased sensation - Psychiatric Exam Psychiatric exam: Normal Mood - Skin Skin Exam: Warm Assessment and Plan (1) Acute CVA (cerebrovascular accident) Status: Ruled-out (2) Hypercoagulable state Status: Chronic (3) Dyslipidemia Status: Chronic (4) Anemia Status: Chronic (5) Cerebellar infarct Status: Chronic (6) Subclavian vein thrombosis, left Status: Chronic - Assessment and Plan (Free Text) Plan: f/u Brain MRI report
--- NOTE | 2018-03-23 17:20 | MRI ---
Date of service: 03/22/2018 PROCEDURE: MRI BRAIN WITHOUT CONTRAST HISTORY: CVA COMPARISON: Comparison made with CT scan and CTA brain 03/21/2018 TECHNIQUE: Multiplanar, multisequence MR images of the brain were obtained without intravenous contrast enhancement. FINDINGS: HEMORRHAGE: No acute parenchymal, subarachnoid or extra-axial hemorrhage. No evidence of hemosiderin deposition identified on gradient echo weighted sequence. DWI: No evidence of an acute or early subacute infarction seen on diffusion imaging. . Mild generalized volume loss BRAIN PARENCHYMA: No evidence of obvious parenchymal nor extra-axial mass or collection seen on this noncontrast exam. No evidence of a significant small vessel disease. Mild generalized volume loss. VENTRICLES: No obstructive the hydrocephalus. CRANIUM: Unremarkable. ORBITS: Grossly unremarkable. PARANASAL SINUSES/MASTOIDS: Minor mucosal thickening seen within the sphenoid sinus. VASCULAR SYSTEM: Visualized major vascular flow voids at skull base patent. OTHER FINDINGS: None. IMPRESSION: No evidence of acute intracranial hemorrhage or infarct. . Very minor generalized volume loss.
--- NOTE | 2018-03-23 17:46 | CP.PCM.PN ---
Subjective - Date & Time of Evaluation Date of Evaluation: 03/23/18 Time of Evaluation: 18:00 - Subjective Subjective: Patient continues to complain of left arm numbness and heaviness. There is also subjective complaint of left arm decreased ft, pin. MRI brain however, does not show acute stroke or hemorrhage as it has in the past with her ischemic events. She also has headache accompanying these symptoms, 8/10, throbbing localized to left frontal region. ROS: as above. On exam: AAOX3. CN 2-12 normal. PERRL. EOMI. MOtor: LEft arm 4-/5, left le+/5. Right arm, le/5 decreased sensation ft, pin in left arm. Proprioception intact Cerebellar: no dysmetria. Gait normal. no ataxia. Objective - Vital Signs/Intake and Output Vital Signs (last 24 hours): Temp Pulse Resp BP Pulse Ox 98.8 F 83 20 126/79 97 03/23/18 15:56 03/23/18 15:56 03/23/18 15:56 03/23/18 15:56 03/23/18 15:56 - Medications Medications: Current Medications Acetaminophen (Tylenol 325mg Tab) 650 mg PO Q4 PRN PRN Reason: Headache Last Admin: 03/23/18 15:03 Dose: 650 mg Aspirin (Ecotrin) 81 mg PO DAILY [facility] Last Admin: 03/23/18 09:11 Dose: 81 mg Atorvastatin Calcium (Lipitor) 10 mg PO HS [facility] Last Admin: 03/22/18 21:05 Dose: 10 mg Clopidogrel Bisulfate (Plavix) 75 mg PO DAILY [facility] Last Admin: 03/23/18 09:11 Dose: 75 mg Dabigatran (Pradaxa) 150 mg PO BID [facility] PRN Reason: Protocol Last Admin: 03/23/18 09:10 Dose: 150 mg Famotidine (Pepcid) 20 mg PO Q12 [facility] Last Admin: 03/23/18 09:11 Dose: 20 mg Ferrous Sulfate (Feosol) 325 mg PO DAILY [facility] Last Admin: 03/23/18 09:11 Dose: 325 mg Fluticasone Propionate (Flonase) 2 spr PRABHAKAR DAILY PRN PRN Reason: Nasal congestion Folic Acid (Folic Acid) 1 mg PO DAILY [facility] Last Admin: 03/23/18 09:11 Dose: 1 mg Furosemide (Lasix) 20 mg PO DAILY [facility] Last Admin: 03/23/18 09:10 Dose: 20 mg Sodium Chloride (Sodium Chloride 0.9%) 1,000 mls @ 100 mls/hr IV .Q10H [facility] Stop: 03/24/18 10:24 Meclizine HCl (Antivert) 25 mg PO BID [facility] Last Admin: 03/23/18 09:11 Dose: 25 mg Pregabalin (Lyrica) 75 mg PO Q12 [facility] Last Admin: 03/23/18 09:10 Dose: 75 mg - Labs Labs: 03/22/18 04:25 03/22/18 04:25 PT 12.9 Seconds (9.8-13.1) 03/22/18 04:25 INR 1.2 03/22/18 04:25 APTT 36.6 Seconds (25.6-37.1) 03/23/18 06:00 Assessment and Plan - Assessment and Plan (Free Text) Assessment: 47 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 MRI BRain does not show an ischemic event, and CTA head and neck is unchanged from last study. It is possible that she may be having some cervical radiculopathy, so we will obtain MRI C spine without contrast. ECHO is also completed and is normal. Plan: 1.MRI C spine without contrast 2. Rehab Thank you Dr cline
--- NOTE | 2018-03-23 20:49 | US ---
EXAM: US Duplex Left Upper Extremity Veins EXAM DATE/TIME: 03/23/2018 7:48 PM CLINICAL HISTORY: 47 years old, female; Pain; Arn, upper; Left; Additional info: Left arm numbness TECHNIQUE: Real-time duplex ultrasound scan of the left upper extremity veins integrating B-mode two-dimensional vascular structure, Doppler spectral analysis, color flow Doppler imaging and compression. COMPARISON: There are no prior studies for comparison. FINDINGS: Deep veins: Internal jugular, subclavian, axillary, brachial, ulnar and radial veins were examined. Superficial basilic and cephalic veins were also imaged. All accessible veins examined are compressible. There are no intraluminal filling defects. There is expected blood flow on Doppler imaging. There is change in waveform with augmentation. Impression: No deep venous thrombosis in the visualized vascular segments of the left upper extremity
[2018-03-24] MEDS: Apap-Butalbital-Caffeine 325-50-40mg Tab PO PRN (11:59)
--- NOTE | 2018-03-24 18:54 | CP.PCM.PN ---
Subjective - Date & Time of Evaluation Date of Evaluation: 03/24/18 Time of Evaluation: 18:00 - Subjective Subjective: continue with sensation of stretching L Neck and l soulder, weakness, numbness LUE, Headache Objective - Vital Signs/Intake and Output Vital Signs (last 24 hours): Temp Pulse Resp BP Pulse Ox 98.1 F 82 20 108/71 97 03/24/18 15:39 03/24/18 15:39 03/24/18 15:39 03/24/18 15:39 03/24/18 15:39 - Medications Medications: Current Medications Acetaminophen (Tylenol 325mg Tab) 650 mg PO Q4 PRN PRN Reason: Headache Last Admin: 03/23/18 15:03 Dose: 650 mg Acetaminophen/Butalbital/Caffeine (Fioricet) 1 tab PO Q4 PRN PRN Reason: Migraine headache Last Admin: 03/24/18 11:59 Dose: 1 tab Aspirin (Ecotrin) 81 mg PO DAILY [facility] Last Admin: 03/24/18 09:23 Dose: 81 mg Atorvastatin Calcium (Lipitor) 10 mg PO HS [facility] Last Admin: 03/23/18 21:23 Dose: 10 mg Clopidogrel Bisulfate (Plavix) 75 mg PO DAILY [facility] Last Admin: 03/24/18 09:23 Dose: 75 mg Dabigatran (Pradaxa) 150 mg PO BID [facility] PRN Reason: Protocol Last Admin: 03/24/18 16:51 Dose: 150 mg Famotidine (Pepcid) 20 mg PO Q12 [facility] Last Admin: 03/24/18 09:23 Dose: 20 mg Ferrous Sulfate (Feosol) 325 mg PO DAILY [facility] Last Admin: 03/24/18 09:23 Dose: 325 mg Fluticasone Propionate (Flonase) 2 spr PRABHAKAR DAILY PRN PRN Reason: Nasal congestion Folic Acid (Folic Acid) 1 mg PO DAILY [facility] Last Admin: 03/24/18 09:23 Dose: 1 mg Furosemide (Lasix) 20 mg PO DAILY [facility] Last Admin: 03/24/18 09:30 Dose: 20 mg Meclizine HCl (Antivert) 25 mg PO BID [facility] Last Admin: 03/24/18 16:51 Dose: 25 mg Pregabalin (Lyrica) 75 mg PO Q12 [facility] Last Admin: 03/24/18 09:22 Dose: 75 mg - Labs Labs: 03/22/18 04:25 03/22/18 04:25 PT 12.9 Seconds (9.8-13.1) 03/22/18 04:25 INR 1.2 03/22/18 04:25 APTT 36.6 Seconds (25.6-37.1) 03/23/18 06:00 - Constitutional Appears: No Acute Distress - Head Exam Head Exam: NORMAL INSPECTION - Eye Exam Eye Exam: PERRL - ENT Exam ENT Exam: Normal Exam - Neck Exam Additional comments: sensation of pressure on palpation of Neck and L shoulder - Respiratory Exam Respiratory Exam: Clear to Ausculation Bilateral - Cardiovascular Exam Cardiovascular Exam: REGULAR RHYTHM - GI/Abdominal Exam GI & Abdominal Exam: Soft, Normal Bowel Sounds - Extremities Exam Additional comments: weakness LUE - Back Exam Back Exam: NORMAL INSPECTION - Neurological Exam Neurological Exam: Alert, CN II-XII Intact, Oriented x3 Additional comments: weakness, numbness, decreased sensation LUE, moves well rest of extremities - Psychiatric Exam Psychiatric exam: Normal Affect, Normal Mood - Skin Skin Exam: Warm Assessment and Plan (1) Acute CVA (cerebrovascular accident) Assessment & Plan: ruled out Status: Ruled-out (2) Hypercoagulable state Status: Chronic (3) Dyslipidemia Status: Chronic (4) Anemia Status: Chronic (5) Cerebellar infarct Status: Chronic (6) Subclavian vein thrombosis, left Status: Chronic (7) Cervical radiculopathy Status: Suspected - Assessment and Plan (Free Text) Plan: LUE Dopler no DVT LUE, f/u MRI C Spine, continue Plavix, Pradaxa and rest of Tx
[2018-03-24 23:32] VITALS: RESP 18
--- NOTE | 2018-03-25 00:27 | CP.PCM.CON ---
History of Present Illness - History of Present Illness History of Present Illness: 47 year old female with a history of migraines, CVA with MTHFR on antiplatelet and therapeutic anticoagulation, admitted with left neck discomfort and left arm numbness/weakness. The patient notes to a sudden episode of dizziness while sitting. This progressed to left neck tightness and left arm numbness/ weakness. She is s/p MRI of the brain but the report is still pending. She reports to compliance with anticoagulation and antiplatelet. Past medical history: Migraines, CVA, MTHFR mutation Past surgical history: None Family history: Mother had stroke in her 40s Social history: Denies tobacco, alcohol, and illicit drug use. Allergies: NKA Review of systems: All remaining review of systems including HEENT, cardiovascular, respiratory, gastrointestinal, genitourinary, musculoskeletal, dermatologic, neurologic, and psychiatric are negative unless mentioned in the HPI. Past Patient History - Infectious Disease Hx of Infectious Diseases: None - Past Medical History & Family History Past Medical History?: Yes - Past Social History Smoking Status: Never Smoked Alcohol: None Drugs: Denies Home Situation {Lives}: With Family - CARDIAC Hx Cardiac Disorders: Yes ( SINUS BRADYCARDIA) - PULMONARY Hx Respiratory Disorders: No - NEUROLOGICAL Hx Neurological Disorder: Yes HX Cerebrovascular Accident: Yes Hx Migraine: Yes - HEENT Hx HEENT Problems: Yes Hx Epistaxis: Yes - RENAL Hx Chronic Kidney Disease: No - ENDOCRINE/METABOLIC Hx Endocrine Disorders: No - HEMATOLOGICAL/ONCOLOGICAL Hx Blood Disorders: Yes Hx Anemia: Yes - INTEGUMENTARY Hx Dermatological Problems: No - MUSCULOSKELETAL/RHEUMATOLOGICAL Hx Musculoskeletal Disorders: Yes Hx Falls: Yes - GASTROINTESTINAL Hx Gastrointestinal Disorders: Yes Hx Ulcer: Yes - GENITOURINARY/GYNECOLOGICAL Hx Genitourinary Disorders: No - PSYCHIATRIC Hx Psychophysiologic Disorder: Yes Hx Anxiety: Yes Hx Substance Use: No - SURGICAL HISTORY Hx Surgeries: Yes Hx Tubal Ligation: Yes - ANESTHESIA Hx Anesthesia: Yes Hx Anesthesia Reactions: No Hx Malignant Hyperthermia: No Meds Allergies/Adverse Reactions: Allergies Allergy/AdvReac Type Severity Reaction Status Date / Time eggplant Allergy NAUSEA Uncoded 03/21/18 13:50 - Medications Medications: Current Medications Acetaminophen (Tylenol 325mg Tab) 650 mg PO Q4 PRN PRN Reason: Headache Last Admin: 03/23/18 15:03 Dose: 650 mg Acetaminophen/Butalbital/Caffeine (Fioricet) 1 tab PO Q4 PRN PRN Reason: Migraine headache Last Admin: 03/24/18 11:59 Dose: 1 tab Aspirin (Ecotrin) 81 mg PO DAILY [facility] Last Admin: 03/24/18 09:23 Dose: 81 mg Atorvastatin Calcium (Lipitor) 10 mg PO HS [facility] Last Admin: 03/24/18 21:46 Dose: 10 mg Clopidogrel Bisulfate (Plavix) 75 mg PO DAILY [facility] Last Admin: 03/24/18 09:23 Dose: 75 mg Dabigatran (Pradaxa) 150 mg PO BID [facility] PRN Reason: Protocol Last Admin: 03/24/18 16:51 Dose: 150 mg Famotidine (Pepcid) 20 mg PO Q12 [facility] Last Admin: 03/24/18 21:46 Dose: 20 mg Ferrous Sulfate (Feosol) 325 mg PO DAILY [facility] Last Admin: 03/24/18 09:23 Dose: 325 mg Fluticasone Propionate (Flonase) 2 spr PRABHAKAR DAILY PRN PRN Reason: Nasal congestion Folic Acid (Folic Acid) 1 mg PO DAILY [facility] Last Admin: 03/24/18 09:23 Dose: 1 mg Furosemide (Lasix) 20 mg PO DAILY [facility] Last Admin: 03/24/18 09:30 Dose: 20 mg Meclizine HCl (Antivert) 25 mg PO BID [facility] Last Admin: 03/24/18 16:51 Dose: 25 mg Physical Exam - Head Exam Head Exam: ATRAUMATIC - Eye Exam Eye Exam: Normal appearance - ENT Exam ENT Exam: Mucous Membranes Dry - Respiratory Exam Respiratory Exam: NORMAL BREATHING PATTERN - Cardiovascular Exam Cardiovascular Exam: +S1, +S2 - GI/Abdominal Exam GI & Abdominal Exam: Normal Bowel Sounds - Extremities Exam Extremities exam: Positive for: normal inspection - Neurological Exam Neurological exam: Oriented x3 - Psychiatric Exam Psychiatric exam: Normal Affect, Normal Mood - Skin Skin Exam: Warm Results - Vital Signs Recent Vital Signs: Last Vital Signs Temp 97.9 F 03/24/18 23:31 Pulse 82 03/24/18 23:31 Resp 18 03/24/18 23:31 BP 105/70 03/24/18 23:31 Pulse Ox 95 03/24/18 23:31 - Labs Result Diagrams: 03/22/18 04:25 03/22/18 04:25 Assessment & Plan (1) MTHFR gene mutation Assessment and Plan: with CVA and arterial clotting on antiplatelet and therapeutic anticoagulation consider adding aspirin if MRI shows CVA Thank you for this interesting consult. Status: Acute
--- NOTE | 2018-03-25 00:31 | CP.PCM.PN ---
Subjective - Date & Time of Evaluation Date of Evaluation: 03/23/18 Time of Evaluation: 17:00 - Subjective Subjective: Has left neck tightness. Objective - Vital Signs/Intake and Output Vital Signs (last 24 hours): Temp Pulse Resp BP Pulse Ox 97.9 F 82 18 105/70 95 03/24/18 23:31 03/24/18 23:31 03/24/18 23:31 03/24/18 23:31 03/24/18 23:31 - Medications Medications: Current Medications Acetaminophen (Tylenol 325mg Tab) 650 mg PO Q4 PRN PRN Reason: Headache Last Admin: 03/23/18 15:03 Dose: 650 mg Acetaminophen/Butalbital/Caffeine (Fioricet) 1 tab PO Q4 PRN PRN Reason: Migraine headache Last Admin: 03/24/18 11:59 Dose: 1 tab Aspirin (Ecotrin) 81 mg PO DAILY [facility] Last Admin: 03/24/18 09:23 Dose: 81 mg Atorvastatin Calcium (Lipitor) 10 mg PO HS [facility] Last Admin: 03/24/18 21:46 Dose: 10 mg Clopidogrel Bisulfate (Plavix) 75 mg PO DAILY [facility] Last Admin: 03/24/18 09:23 Dose: 75 mg Dabigatran (Pradaxa) 150 mg PO BID [facility] PRN Reason: Protocol Last Admin: 03/24/18 16:51 Dose: 150 mg Famotidine (Pepcid) 20 mg PO Q12 [facility] Last Admin: 03/24/18 21:46 Dose: 20 mg Ferrous Sulfate (Feosol) 325 mg PO DAILY [facility] Last Admin: 03/24/18 09:23 Dose: 325 mg Fluticasone Propionate (Flonase) 2 spr PRABHAKAR DAILY [facility]N PRN Reason: Nasal congestion Folic Acid (Folic Acid) 1 mg PO DAILY [facility] Last Admin: 03/24/18 09:23 Dose: 1 mg Furosemide (Lasix) 20 mg PO DAILY [facility] Last Admin: 03/24/18 09:30 Dose: 20 mg Meclizine HCl (Antivert) 25 mg PO BID [facility] Last Admin: 03/24/18 16:51 Dose: 25 mg - Labs Labs: 03/22/18 04:25 03/22/18 04:25 PT 12.9 Seconds (9.8-13.1) 03/22/18 04:25 INR 1.2 03/22/18 04:25 APTT 36.6 Seconds (25.6-37.1) 03/23/18 06:00 - Head Exam Head Exam: ATRAUMATIC - Eye Exam Eye Exam: Normal appearance - ENT Exam ENT Exam: Mucous Membranes Dry - Respiratory Exam Respiratory Exam: NORMAL BREATHING PATTERN - Cardiovascular Exam Cardiovascular Exam: +S1, +S2 - GI/Abdominal Exam GI & Abdominal Exam: Normal Bowel Sounds Assessment and Plan (1) MTHFR gene mutation Assessment & Plan: with CVA and arterial clotting on antiplatelet and therapeutic anticoagulation no new CVA on imaging Status: Acute
--- NOTE | 2018-03-25 00:33 | CP.PCM.PN ---
Subjective - Date & Time of Evaluation Date of Evaluation: 03/24/18 Time of Evaluation: 19:00 - Subjective Subjective: Has neck tightness Objective - Vital Signs/Intake and Output Vital Signs (last 24 hours): Temp Pulse Resp BP Pulse Ox 97.9 F 82 18 105/70 95 03/24/18 23:31 03/24/18 23:31 03/24/18 23:31 03/24/18 23:31 03/24/18 23:31 - Medications Medications: Current Medications Acetaminophen (Tylenol 325mg Tab) 650 mg PO Q4 PRN PRN Reason: Headache Last Admin: 03/23/18 15:03 Dose: 650 mg Acetaminophen/Butalbital/Caffeine (Fioricet) 1 tab PO Q4 PRN PRN Reason: Migraine headache Last Admin: 03/24/18 11:59 Dose: 1 tab Aspirin (Ecotrin) 81 mg PO DAILY [facility] Last Admin: 03/24/18 09:23 Dose: 81 mg Atorvastatin Calcium (Lipitor) 10 mg PO HS [facility] Last Admin: 03/24/18 21:46 Dose: 10 mg Clopidogrel Bisulfate (Plavix) 75 mg PO DAILY [facility] Last Admin: 03/24/18 09:23 Dose: 75 mg Dabigatran (Pradaxa) 150 mg PO BID [facility] PRN Reason: Protocol Last Admin: 03/24/18 16:51 Dose: 150 mg Famotidine (Pepcid) 20 mg PO Q12 [facility] Last Admin: 03/24/18 21:46 Dose: 20 mg Ferrous Sulfate (Feosol) 325 mg PO DAILY [facility] Last Admin: 03/24/18 09:23 Dose: 325 mg Fluticasone Propionate (Flonase) 2 spr PRABHAKAR DAILY [facility] PRN Reason: Nasal congestion Folic Acid (Folic Acid) 1 mg PO DAILY [facility] Last Admin: 03/24/18 09:23 Dose: 1 mg Furosemide (Lasix) 20 mg PO DAILY [facility] Last Admin: 03/24/18 09:30 Dose: 20 mg Meclizine HCl (Antivert) 25 mg PO BID [facility] Last Admin: 03/24/18 16:51 Dose: 25 mg - Labs Labs: 03/22/18 04:25 03/22/18 04:25 PT 12.9 Seconds (9.8-13.1) 03/22/18 04:25 INR 1.2 03/22/18 04:25 APTT 36.6 Seconds (25.6-37.1) 03/23/18 06:00 - Head Exam Head Exam: ATRAUMATIC - Eye Exam Eye Exam: Normal appearance - ENT Exam ENT Exam: Mucous Membranes Dry - Respiratory Exam Respiratory Exam: NORMAL BREATHING PATTERN - Cardiovascular Exam Cardiovascular Exam: +S1, +S2 - GI/Abdominal Exam GI & Abdominal Exam: Normal Bowel Sounds Assessment and Plan (1) MTHFR gene mutation Assessment & Plan: with CVA and arterial clotting on antiplatelet and therapeutic anticoagulation no acute CVA by imaging Status: Acute
--- NOTE | 2018-03-25 09:53 | CP.PCM.PN ---
Subjective - Date & Time of Evaluation Date of Evaluation: 03/25/18 Time of Evaluation: 09:50 - Subjective Subjective: Ms. Kleber Sheldon was seen and examined at the bedside. She is alert, oriented x 3complains of pain in her neck area , aggravated with neck movement. She denies any headache, dizziness, or blurred vision. She moves her extremities , but with her left upper extremity weaker than the right.There was no untoward events overnight. Objective - Vital Signs/Intake and Output Vital Signs (last 24 hours): Temp Pulse Resp BP Pulse Ox 98.3 F 71 18 108/74 95 03/25/18 07:50 03/25/18 07:50 03/25/18 07:50 03/25/18 08:20 03/25/18 07:50 - Medications Medications: Current Medications Acetaminophen (Tylenol 325mg Tab) 650 mg PO Q4 PRN PRN Reason: Headache Last Admin: 03/23/18 15:03 Dose: 650 mg Acetaminophen/Butalbital/Caffeine (Fioricet) 1 tab PO Q4 PRN PRN Reason: Migraine headache Last Admin: 03/24/18 11:59 Dose: 1 tab Aspirin (Ecotrin) 81 mg PO DAILY [facility] Last Admin: 03/25/18 08:20 Dose: 81 mg Atorvastatin Calcium (Lipitor) 10 mg PO HS [facility] Last Admin: 03/24/18 21:46 Dose: 10 mg Clopidogrel Bisulfate (Plavix) 75 mg PO DAILY [facility] Last Admin: 03/25/18 08:19 Dose: 75 mg Dabigatran (Pradaxa) 150 mg PO BID [facility] PRN Reason: Protocol Last Admin: 03/25/18 08:22 Dose: 150 mg Famotidine (Pepcid) 20 mg PO Q12 [facility] Last Admin: 03/25/18 08:22 Dose: 20 mg Ferrous Sulfate (Feosol) 325 mg PO DAILY [facility] Last Admin: 03/25/18 08:20 Dose: 325 mg Fluticasone Propionate (Flonase) 2 spr PRABHAKAR DAILY PRN PRN Reason: Nasal congestion Folic Acid (Folic Acid) 1 mg PO DAILY [facility] Last Admin: 03/25/18 08:20 Dose: 1 mg Furosemide (Lasix) 20 mg PO DAILY [facility] Last Admin: 03/25/18 08:20 Dose: 20 mg Meclizine HCl (Antivert) 25 mg PO BID [facility] Last Admin: 03/25/18 08:20 Dose: 25 mg - Labs Labs: 03/22/18 04:25 03/22/18 04:25 PT 12.9 Seconds (9.8-13.1) 03/22/18 04:25 INR 1.2 03/22/18 04:25 APTT 36.6 Seconds (25.6-37.1) 03/23/18 06:00 - Constitutional Appears: No Acute Distress - Head Exam Head Exam: NORMAL INSPECTION - Neurological Exam Neurological Exam: Alert, Awake, Oriented x3 Neuro motor strength exam: Left Upper Extremity: 4, Right Upper Extremity: 4, Left Lower Extremity: 4, Right Lower Extremity: 4 Additional comments: alert, oriented x3 with left upper extremity weakness, sensation remains intact. Assessment and Plan (1) Left arm weakness Assessment & Plan: Continue all current medical, physical therapies. Pending MRI of the C- spine. Recommend PT/ OT eval and treat, hydration, and treat any electrolyte abnormalities. Status: Acute
[2018-03-25 12:04] VITALS: BP 110/72; PULSE 77; TEMP 98
[2018-03-25] MEDS: Apap-Butalbital-Caffeine 325-50-40mg Tab PO PRN (12:31)
--- NOTE | 2018-03-25 14:43 | MRI ---
Date of service: 03/25/2018 PROCEDURE: MR CERVICAL SPINE WITHOUT CONTRAST HISTORY: cervical radiculopathy COMPARISON: None available. TECHNIQUE: Multiecho multiplanar sequences were performed through the cervical spine without the use of intravenous contrast. FINDINGS: There is slight straightening of the cervical curvature without fracture or spondylolisthesis identified. The Marrow signal is dark and may indicate anemia or other hematopoetic disorder. No focal suspicious matter signal changes are identified nevertheless. Craniocervical junction unremarkable. Vertebral body heights preserved. Normal into signal throughout the cervical spinal cord. No prevertebral or paraspinal paraspinal abnormality. C2-C3: No disc herniation, spinal canal stenosis or neural foraminal narrowing. C3-C4: No disc herniation, spinal canal stenosis or neural foraminal narrowing. Limited disc bulging identified. C4-C5: A generalized disc bulge is appreciate without disc herniation encroaching not impinging ventral nerve roots and causing borderline central stenosis. No neural foraminal stenosis bilaterally. C5-C6: Limited generalized disc bulging is appreciated encroaching if not impinging ventral nerve roots without causing significant central stenosis. No neural foraminal stenosis bilaterally. C6-C7: No disc herniation, spinal canal stenosis or neural foraminal narrowing. C7-T1: No disc herniation, spinal canal stenosis or neural foraminal narrowing. OTHER FINDINGS: None. IMPRESSION: Borderline degenerative central stenosis C4-5. Generalized disc bulging at C4-5 and C5-6 encroaches if not impinges ventral nerve roots symmetrically. Diminished signal intensity throughout the marrow on all sequences could any quite anemia or other hematopoetic disorder. Clinically correlate.
--- NOTE | 2018-03-25 15:25 | CP.PCM.PCO ---
Assessment/Plan - Assessment and Plan (Free Text) Assessment: Patient seen and examined vss, awake alert oriented denies chest pain, nausea vomiting, no headaches mri results back, discussed with Dr Starr, patient with cervical radiculopathy, may go home and continue outpt occupational and physical therapy. Will rx fiorocet for headaches rx for physical and occupational therapy discussed with dr scott
--- NOTE | 2018-03-25 16:02 | CP.PCM.PN ---
Subjective - Date & Time of Evaluation Date of Evaluation: 03/25/18 Time of Evaluation: 13:10 - Subjective Subjective: F/U Acute CVA Objective - Vital Signs/Intake and Output Vital Signs (last 24 hours): Temp Pulse Resp BP Pulse Ox 98 F 77 18 110/72 96 03/25/18 12:03 03/25/18 12:03 03/25/18 12:03 03/25/18 12:03 03/25/18 12:03 - Medications Medications: Current Medications Acetaminophen (Tylenol 325mg Tab) 650 mg PO Q4 PRN PRN Reason: Headache Last Admin: 03/23/18 15:03 Dose: 650 mg Acetaminophen/Butalbital/Caffeine (Fioricet) 1 tab PO Q4 PRN PRN Reason: Migraine headache Last Admin: 03/25/18 12:31 Dose: 1 tab Aspirin (Ecotrin) 81 mg PO DAILY [facility] Last Admin: 03/25/18 08:20 Dose: 81 mg Atorvastatin Calcium (Lipitor) 10 mg PO HS [facility] Last Admin: 03/24/18 21:46 Dose: 10 mg Clopidogrel Bisulfate (Plavix) 75 mg PO DAILY [facility] Last Admin: 03/25/18 08:19 Dose: 75 mg Dabigatran (Pradaxa) 150 mg PO BID [facility] PRN Reason: Protocol Last Admin: 03/25/18 08:22 Dose: 150 mg Famotidine (Pepcid) 20 mg PO Q12 [facility] Last Admin: 03/25/18 08:22 Dose: 20 mg Ferrous Sulfate (Feosol) 325 mg PO DAILY [facility] Last Admin: 03/25/18 08:20 Dose: 325 mg Fluticasone Propionate (Flonase) 2 spr PRABHAKAR DAILY PRN PRN Reason: Nasal congestion Folic Acid (Folic Acid) 1 mg PO DAILY [facility] Last Admin: 03/25/18 08:20 Dose: 1 mg Furosemide (Lasix) 20 mg PO DAILY [facility] Last Admin: 03/25/18 08:20 Dose: 20 mg Meclizine HCl (Antivert) 25 mg PO BID [facility] Last Admin: 03/25/18 08:20 Dose: 25 mg - Labs Labs: 03/22/18 04:25 03/22/18 04:25 PT 12.9 Seconds (9.8-13.1) 03/22/18 04:25 INR 1.2 03/22/18 04:25 APTT 36.6 Seconds (25.6-37.1) 03/23/18 06:00 - Constitutional Appears: No Acute Distress - Head Exam Head Exam: NORMAL INSPECTION - Eye Exam Eye Exam: PERRL - ENT Exam ENT Exam: Normal Exam - Neck Exam Additional comments: Sensation of pressure on palpation on neck an left shoulder - Respiratory Exam Respiratory Exam: Clear to Ausculation Bilateral - Cardiovascular Exam Cardiovascular Exam: REGULAR RHYTHM - GI/Abdominal Exam GI & Abdominal Exam: Soft, Normal Bowel Sounds - Extremities Exam Additional comments: Weakness LUE - Back Exam Back Exam: NORMAL INSPECTION - Neurological Exam Neurological Exam: Alert, CN II-XII Intact, Oriented x3 Additional comments: Weakness, numbness, decreased sensation on LUE, moves rest of extremities - Psychiatric Exam Psychiatric exam: Normal Affect, Normal Mood - Skin Skin Exam: Warm Assessment and Plan (1) Acute CVA (cerebrovascular accident) Status: Ruled-out (2) Hypercoagulable state Status: Chronic (3) Dyslipidemia Status: Chronic (4) Anemia Status: Chronic (5) Cerebellar infarct Status: Chronic (6) Subclavian vein thrombosis, left Status: Chronic (7) Cervical radiculopathy Status: Suspected
--- NOTE | 2018-03-25 18:08 | CP.PCM.DIS ---
Provider - Provider Date of Admission: 03/21/18 17:16 Attending physician: Lei Alejo MD Diagnosis - Discharge Diagnosis (1) Acute CVA (cerebrovascular accident) Status: Ruled-out Priority: High (2) Hypercoagulable state Status: Chronic Priority: High (3) Dyslipidemia Status: Chronic Priority: High (4) Anemia Status: Chronic (5) Cerebellar infarct Status: Chronic (6) Subclavian vein thrombosis, left Status: Chronic (7) Cervical radiculopathy Status: Suspected Hospital Course - Lab Results Lab Results: Most Recent Lab Values WBC 7.8 K/uL (4.8-10.8) 03/22/18 04:25 RBC 4.16 Mil/uL (3.80-5.20) 03/22/18 04:25 Hgb 12.8 g/dL (12.0-16.0) 03/22/18 04:25 Hct 38.9 % (34.0-47.0) 03/22/18 04:25 MCV 93.4 fl (81.0-99.0) 03/22/18 04:25 MCH 30.7 pg (27.0-31.0) 03/22/18 04:25 MCHC 32.9 g/dL (33.0-37.0) L 03/22/18 04:25 RDW 14.1 % (11.5-14.5) 03/22/18 04:25 Plt Count 365 K/uL (130-400) 03/22/18 04:25 MPV 7.9 fl (7.2-11.7) 03/21/18 14:50 Neut % (Auto) 68.8 % (50.0-75.0) 03/21/18 14:50 Lymph % (Auto) 20.1 % (20.0-40.0) 03/21/18 14:50 Cole % (Auto) 7.7 % (0.0-10.0) 03/21/18 14:50 Eos % (Auto) 2.5 % (0.0-4.0) 03/21/18 14:50 Baso % (Auto) 0.9 % (0.0-2.0) 03/21/18 14:50 Neut # (Auto) 5.8 K/uL (1.8-7.0) 03/21/18 14:50 Lymph # (Auto) 1.7 K/uL (1.0-4.3) 03/21/18 14:50 Cole # (Auto) 0.6 K/uL (0.0-0.8) 03/21/18 14:50 Eos # (Auto) 0.2 K/uL (0.0-0.7) 03/21/18 14:50 Baso # (Auto) 0.1 K/uL (0.0-0.2) 03/21/18 14:50 ESR 44 mm/hr (0-20) H 03/21/18 14:50 Retic Count 1.9 % (0.5-1.5) H 03/21/18 14:50 PT 12.9 Seconds (9.8-13.1) 03/22/18 04:25 INR 1.2 03/22/18 04:25 APTT 36.6 Seconds (25.6-37.1) 03/23/18 06:00 Sodium 141 mmol/l (132-148) 03/22/18 04:25 Potassium 3.8 MMOL/L (3.6-5.0) 03/22/18 04:25 Chloride 107 mmol/L (98-107) 03/22/18 04:25 Carbon Dioxide 25 mmol/L (22-30) 03/22/18 04:25 Anion Gap 13 (10-20) 03/22/18 04:25 BUN 9 mg/dl (7-17) 03/22/18 04:25 Creatinine 0.8 mg/dl (0.7-1.2) 03/22/18 04:25 Est GFR ( Amer) > 60 03/22/18 04:25 Est GFR (Non-Af Amer) > 60 03/22/18 04:25 POC Glucose (mg/dL) 93 mg/dL (65-110) 03/21/18 14:57 Random Glucose 115 mg/dL (65-105) H 03/22/18 04:25 Hemoglobin A1c 6.3 % (4.2-6.5) 03/21/18 17:20 Lactic Acid 1.8 MMOL/L (0.7-2.1) 03/21/18 14:50 Calcium 9.4 mg/dL (8.4-10.2) 03/22/18 04:25 Total Bilirubin 0.2 mg/dl (0.2-1.3) 03/22/18 04:25 AST 38 U/L (14-36) H 03/22/18 04:25 ALT 52 U/L (9-52) 03/22/18 04:25 Alkaline Phosphatase 79 U/L (38-126) 03/22/18 04:25 Troponin I < 0.0120 ng/mL (0.00-0.120) 03/21/18 14:50 NT-Pro-B Natriuret Pep 50.5 pg/ml (0-450) 03/21/18 14:50 Total Protein 6.5 G/DL (6.3-8.2) 03/22/18 04:25 Albumin 3.7 g/dL (3.5-5.0) 03/22/18 04:25 Globulin 2.8 gm/dL (2.2-3.9) 03/22/18 04:25 Albumin/Globulin Ratio 1.3 (1.0-2.1) 03/22/18 04:25 Triglycerides 209 mg/DL (0-149) H 03/22/18 04:25 Cholesterol 181 mg/dL (0-199) 03/22/18 04:25 LDL Cholesterol Direct 118 mg/dL (0-129) 03/22/18 04:25 HDL Cholesterol 25 MG/DL (30-70) L 03/22/18 04:25 Lipase 120 U/L (23-300) 03/21/18 14:50 Thyroxine (T4) 7.42 ug/dl (5.5-11.0) 03/22/18 04:25 Beta HCG, Quant < 2.39 mIU/mL 03/21/18 14:50 Alcohol, Quantitative < 10 mg/dl (0-10) 03/21/18 14:50 Blood Type A POSITIVE 03/21/18 15:45 Antibody Screen Negative 03/21/18 15:45 BBK History Checked Patient has bt 03/21/18 15:45 Discharge Exam - Head Exam Head Exam: NORMAL INSPECTION Discharge Plan - Discharge Medications Prescriptions: Acetaminophen/Butalbital/Caf [Fioricet] 1 tab PO Q8 #20 tab - Follow Up Plan Condition: STABLE Disposition: HOME/ ROUTINE Instructions: Transient Ischemic Attack (DC), Radiculopathy (DC) Additional Instructions: follow up with pmd in 1 week Referrals: Wm Gatica MD [Medical Doctor] - Lei Alejo MD [Family Provider] -
[2018-03-26 22:58] VITALS: O2SAT 98
--- NOTE | 2018-03-28 13:37 | PQF ---
PROVIDER RESPONSE TEXT: Diagnosis: Cervical Radiculopathy REVIEWER QUERY TEXT: Condition Necessitating Admission PLEASE CONFIRM THE PRINCIPAL DIAGNOSIS. Please clarify the medical conditions and the associated clinical risk factors necessitating admissio n. The patient's Clinical Indicators include: DIZZINESS/LIGHTHEADED/WEAKNESS Query created by: Cherise Olvera on 03/26/2018 12:48 PM Electronically signed by: Lei Alejo MD 03/28/2018 1:35 PM
== END 2018-03-25 16:10 | disposition home or self-care (01) | DRG 74 ==
LOC: H.ER 13:43 → H.ERHOLD 17:16 → H.TEL 20:54
PROVIDERS: ADMIT Internal Medicine Pulmonary Disease; ATTEND Internal Medicine Pulmonary Disease
DX: M54.12 Radiculopathy, cervical region (principal); I82.B22 Chronic embolism and thrombosis of left subclavian vein; E72.12 Methylenetetrahydrofolate reductase deficiency; D68.59 Other primary thrombophilia; I65.29 Occlusion and stenosis of unspecified carotid artery; R42 Dizziness and giddiness; R29.702 NIHSS score 2; Z79.02 Long term (current) use of antithrombotics/antiplatelets; Z82.3 Family history of stroke; Z86.73 Personal history of transient ischemic attack (TIA), and cerebral infarction without residual deficits; Z87.11 Personal history of peptic ulcer disease; Z98.51 Tubal ligation status; F41.9 Anxiety disorder, unspecified; F45.9 Somatoform disorder, unspecified; G43.909 Migraine, unspecified, not intractable, without status migrainosus; M79.89 Other specified soft tissue disorders; R00.1 Bradycardia, unspecified; D64.9 Anemia, unspecified; E78.5 Hyperlipidemia, unspecified

== ENCOUNTER 2018-04-06 09:13 | Emergency (ER) | payer BC ==
[2018-04-06 09:13] VITALS: BMI 25.4
--- NOTE | 2018-04-06 10:03 | ED PDOC ---
Lower Extremity Pain/Injury Time Seen by Provider: 04/06/18 09:26 Chief Complaint (Nursing): Lower Extremity Problem/Injury Chief Complaint (Provider): Right Knee Pain History Per: Patient History/Exam Limitations: no limitations Onset/Duration Of Symptoms: Hrs Current Symptoms Are (Timing): Still Present Additional Complaint(s): 47 year old female presents to the ER for an evaluation of the right knee pain upon waking up today morning. Patient reports the pain was there before but states, it was never this painful. She also reports she was told she had meniscus 2 years here in the ER and received cortisone shot. Patient is able to ambulate with anne and states the knee pain becomes worse when bending. Denies trauma, twisting injury or any heavy lifting. PMD: Unknown Past Medical History Reviewed: Historical Data, Nursing Documentation, Vital Signs Vital Signs: Last Vital Signs Temp 98.4 F 04/06/18 09:22 Pulse 95 H 04/06/18 09:22 Resp 18 04/06/18 09:22 BP 132/72 04/06/18 09:22 Pulse Ox 97 04/06/18 09:22 - Medical History PMH: Anemia, Anxiety, CVA (x3), Gastrointestinal Ulcer, Hiatal Hernia, Migraine Denies: Chronic Kidney Disease - Family History Family History: States: Unknown Family Hx - Social History Current smoker - smoking cessation education provided: No Alcohol: None Drugs: Denies - Home Medications Home Medications: Ambulatory Orders Medication Instructions Recorded Clopidogrel [Plavix] 75 mg PO DAILY 30 Days tab 01/12/18 Atorvastatin [Lipitor] 10 mg PO HS 03/21/18 Dabigatran [Pradaxa] 150 mg PO Q12 03/21/18 Famotidine [Pepcid] 20 mg PO Q12 03/21/18 Ferrous Sulfate [Feosol] 325 mg PO DAILY 03/21/18 Fluticasone Nasal [Flonase] 2 spray PRABHAKAR DAILY PRN 03/21/18 Folic Acid 1 mg PO DAILY 03/21/18 Furosemide [Lasix] 20 mg PO DAILY 03/21/18 Meclizine [Meclizine*] 25 mg PO BID 03/21/18 Pregabalin [Lyrica] 75 mg PO Q8 03/21/18 Acetaminophen/Butalbital/Caf 1 tab PO Q8 #20 tab 03/25/18 [Fioricet] oxyCODONE/Acetaminophen [Percocet 1 tab PO Q6H PRN #15 tab 04/06/18 5/325 mg Tab] - Allergies Allergies/Adverse Reactions: Allergies Allergy/AdvReac Type Severity Reaction Status Date / Time eggplant Allergy NAUSEA Uncoded 04/06/18 09:31 Review of Systems ROS Statement: Except As Marked, All Systems Reviewed And Found Negative Constitutional: Negative for: Other (trauma) Musculoskeletal: Positive for: Other (right knee pain) Psych: Negative for: Suicidal ideation (homicidal ideation) Physical Exam - Reviewed Nursing Documentation Reviewed: Yes Vital Signs Reviewed: Yes - Physical Exam Appears: Positive for: Non-toxic, No Acute Distress Head Exam: Positive for: ATRAUMATIC, NORMAL INSPECTION, NORMOCEPHALIC Skin: Positive for: Normal Color, Warm, Dry. Negative for: Rash Pulses-Dorsalis Pedis (R): 2+ Extremity: Positive for: Tenderness (circumferentially around knee), Other ( minimal edema). Negative for: Normal ROM (decreased ROM secondary to pain ), Pedal Edema, Calf Tenderness, Deformity Neurologic/Psych: Positive for: Alert, Oriented (x3). Negative for: Motor/ Sensory Deficits - ECG O2 Sat by Pulse Oximetry: 97 (RA) Pulse Ox Interpretation: Normal - Physician Consult Information Time Consulting Physican Contacted: 13:30 Physician Contacted: Rodo Long Outcome Of Conversation: States findings c/w inflammatory arthritis, recommends injection of joint with 2 cc 2% Lidocaine, 2 cc 0.5 Marcaine and 40 mg Depo-medrol. Medical Decision Making Medical Decision Making: Time: 930 Initial Impression: Knee Pain Initial Plan: --Knee w/o Contrast Right [CT] --ED Urine --Morphine 2mg --Reevaluation Accession No. : [id number] Patient Name / ID : STEPHANIE MISTRY / [id number] Exam Date : 04/06/2018 10:17:12 ( Approved ) Study Comment : Sex / Age : F / 47Y Creator : Stanley Ponce MD Dictator : Stanley Ponce MD Meter Supervisor : Banquet Chef : Stanley Ponce MD Approver2 : Report Date : 04/06/2018 11:24:24 My Comment : Date of service: 04/06/2018 PROCEDURE: HISTORY: R knee pain COMPARISON: TECHNIQUE: FINDINGS: No fracture dislocation. Large joint effusion. Soft tissues otherwise unremarkable. IMPRESSION: Large effusion. Pt states she was evaluated by [facility] 2 years ago. Advised to follow-up with group again for reevaluation. 14:00 After obtaining verbal consent, joint injected with Lidocaine, Marcaine and Depo -medrol under sterile conditions. Pt tolerated procedure well. Scribe Attestation: Documented by Marin Hein, acting as a scribe for Laurie Haskins MD Provider Scribe Attestation: All medical record entries made by the Scribe were at my direction and personally dictated by me. I have reviewed the chart and agree that the record accurately reflects my personal performance of the history, physical exam, medical decision making, and the department course for this patient. I have also personally directed, reviewed, and agree with the discharge instructions and disposition. Disposition - Clinical Impression Clinical Impression: Inflammatory arthritis - Patient ED Disposition Is Patient to be Admitted: No - Disposition Disposition: Routine/Home Disposition Time: 13:43 Condition: IMPROVED Additional Instructions: FOLLOW-UP WITH [facility]. Prescriptions: oxyCODONE/Acetaminophen [Percocet 5/325 mg Tab] 1 tab PO Q6H PRN #15 tab PRN Reason: Pain, Severe (8-10) Instructions: Osteoarthritis Forms: [employer] (Sinhala) Procedure: Fluid Aspiration - Time Performed Time Performed: 12:30 - Time Out Time Out: Side verified, Patient ID confirmed, Sterile procedures obs. - Procedure Procedure: Arthrocentesis - Consent Obtained Consent obtained: Written - Performed By Performed by: Attending Physician - Indications Indication(s): Therapeutic, Diagnostic, Joint effusion - Contraindications Contraindications: Coagulopathy - Location Location: Right, Knee - Anesthetic Technique Anesthetic Technique: Local Anesthetic: Lidocaine 2% Procedure: Usual prep and drape, Needle gauge (18) - Appearance Appearance: Serous - Post-procedure Post-procedure: Dressed (Pressure dressing) - Complications Complications: None - Patient tolerated procedure Patient tolerated procedure: Well
--- NOTE | 2018-04-06 11:26 | CT ---
Date of service: 04/06/2018 PROCEDURE: HISTORY: R knee pain COMPARISON: TECHNIQUE: FINDINGS: No fracture dislocation. Large joint effusion. Soft tissues otherwise unremarkable. IMPRESSION: Large effusion.
[2018-04-06] MEDS ORDERED: Lidocaine 1% 5ml Abboject ONE (11:54)
[2018-04-06] MEDS ORDERED: Lidocaine 2% Inj (20ml) INFIL STA (11:58)
[2018-04-06 12:48] LABS: FLUID TYPE SYNOVIAL FLUID
[2018-04-06 13:22] LABS: SF GROSS APPEARANCE TURBID (CLEAR)
[2018-04-06 13:23] LABS: SYNOVIAL FLUID COMMENT LT.YELLOW
[2018-04-06] MEDS ORDERED: Bupivacaine 0.5% Inj(30mL) IJ STA (13:38)
[2018-04-06] MEDS ORDERED: MethylPREDNISolone Depo 40 mg/ml Inj INJ STA (13:39)
[2018-04-06 13:55] VITALS: BP 110/62; PULSE 72; RESP 17; TEMP 98.3
[2018-04-06 14:04] VITALS: O2SAT 97
[2018-04-06 14:22] LABS: SYNOVIAL FLUID MONO/MACROPHAGE 13 % (0-0)
[2018-04-07 11:20] LABS: FLUID CRYSTALS NEGATIVE (NEGATIVE)
== END 2018-04-06 14:13 | disposition home or self-care (01) ==
LOC: H.ER 09:13
DX: M13.861 Other specified arthritis, right knee (principal); M06.4 Inflammatory polyarthropathy; Z79.01 Long term (current) use of anticoagulants; Z86.73 Personal history of transient ischemic attack (TIA), and cerebral infarction without residual deficits; D68.9 Coagulation defect, unspecified
CPT/HCPCS: 20605; 73700; 81025; 87070; 89051; 89060; 96372; 99283; J1030; J2270

== ENCOUNTER 2018-04-16 08:38 | Inpatient (IN) | payer BC ==
[2018-04-16 08:40] VITALS: BMI 30.2
--- NOTE | 2018-04-16 09:21 | ED PDOC ---
Lower Extremity Pain/Injury Time Seen by Provider: 04/16/18 09:05 Chief Complaint (Nursing): Lower Extremity Problem/Injury Chief Complaint (Provider): Lower Extremity Problem/Injury History Per: Patient History/Exam Limitations: no limitations Onset/Duration Of Symptoms: Persistent (x1 week), Worse Since (this morning) Current Symptoms Are (Timing): Still Present Additional Complaint(s): 47 year old female with pmHx of (3) strokes, arrives to ED with a complaint of persistent right knee pain for 1 week but worsen with swelling this morning. Patient had right knee drained at [facility] on 04/06/18 and drained/cultured again at [facility] yesterday to rule out gout. She denies any numbness, tingling sensation, change in bowels, or urinary complaints. Of note, patient is on multiple blood thinners. No calf pain, back pain, injury, fever, weakness. PMD: Dr. Lei Alejo Past Medical History Reviewed: Historical Data, Nursing Documentation, Vital Signs Vital Signs: Last Vital Signs Temp 98.4 F 04/16/18 08:40 Pulse 90 04/16/18 08:40 Resp 16 04/16/18 08:40 BP 130/65 04/16/18 08:40 Pulse Ox 99 04/16/18 08:40 - Medical History PMH: Anemia, Anxiety, CVA (x3), Gastrointestinal Ulcer, Hiatal Hernia, Migraine Denies: Chronic Kidney Disease - Family History Family History: States: Unknown Family Hx - Home Medications Home Medications: Ambulatory Orders Medication Instructions Recorded Clopidogrel [Plavix] 75 mg PO DAILY 30 Days tab 01/12/18 Atorvastatin [Lipitor] 10 mg PO HS 03/21/18 Dabigatran [Pradaxa] 150 mg PO Q12 03/21/18 Famotidine [Pepcid] 20 mg PO Q12 03/21/18 Ferrous Sulfate [Feosol] 325 mg PO DAILY 03/21/18 Fluticasone Nasal [Flonase] 2 spray PRABHAKAR DAILY PRN 03/21/18 Folic Acid 1 mg PO DAILY 03/21/18 Furosemide [Lasix] 20 mg PO DAILY 03/21/18 Meclizine [Meclizine*] 25 mg PO BID 03/21/18 Pregabalin [Lyrica] 75 mg PO Q8 03/21/18 Acetaminophen/Butalbital/Caf 1 tab PO Q8 #20 tab 03/25/18 [Fioricet] oxyCODONE/Acetaminophen [Percocet 1 tab PO Q6H PRN #15 tab 04/06/18 5/325 mg Tab] - Allergies Allergies/Adverse Reactions: Allergies Allergy/AdvReac Type Severity Reaction Status Date / Time eggplant Allergy NAUSEA Uncoded 04/16/18 08:51 Review of Systems ROS Statement: Except As Marked, All Systems Reviewed And Found Negative Gastrointestinal: Negative for: Diarrhea, Constipation Genitourinary Female: Negative for: Dysuria, Hematuria Musculoskeletal: Positive for: Leg Pain (right knee with swelling) Neurological: Negative for: Numbness (or tingling sensation) Physical Exam - Reviewed Nursing Documentation Reviewed: Yes Vital Signs Reviewed: Yes - Physical Exam Appears: Positive for: Non-toxic Head Exam: Positive for: ATRAUMATIC, NORMAL INSPECTION, NORMOCEPHALIC Eye Exam: Positive for: EOMI, Normal appearance, PERRL Neck: Positive for: Normal, Painless ROM Cardiovascular/Chest: Positive for: Regular Rate, Rhythm, Chest Non Tender Respiratory: Positive for: Normal Breath Sounds. Negative for: Respiratory Distress Pulses-Dorsalis Pedis (R): 2+ Back: Positive for: Normal Inspection. Negative for: L CVA Tenderness, R CVA Tenderness, Vertebral Tenderness Extremity: Positive for: Tenderness (right knee with limited ROM secondary to pain; no erythema), Swelling (and effusion of right knee). Negative for: Normal ROM, Calf Tenderness (bilaterally), Deformity (left knee), Other (hip pain) Neurologic/Psych: Positive for: Alert, Oriented (x3). Negative for: Motor/Sensory Deficits - Laboratory Results Result Diagrams: 04/16/18 10:35 04/16/18 11:20 Interpretation Of Abn Labs: 16.1 wbc - ECG O2 Sat by Pulse Oximetry: 99 (RA) Pulse Ox Interpretation: Normal - Progress ED Course And Treament: 1156: Pt. had Ct several days ago that showed effusion. Had knee effusion drainage on Sat whose results do not show growth on micro. Knee drainage yesterday by ortho Dr. Oliver. Spoke with Dr. Oliver. He feels pt. has gout. States to call his office in 2 days to get cx and stain results. Spoke with Dr. Alejo who wants to admit and tx for septic arthritis. He wants Dr. June. 1205: Spoke with Dr. June. States to continue care and will consult. Medical Decision Making Medical Decision Making: Time: 919 Initial Plan: * EKG * Labs * Morphine 4mg IV * IV fluids * Zofran inj 4mg IV Time: 919 --Old charts reviewed: Patient was seen this ED on 04/06/18 with (-) CT right k nee findings. Time: 944 --Case discussed with Dr. Oliver at [facility] whom advises to admit patient for pain control and to call his office to follow up with culture results in 1-2 days. Most likely gout. Scribe Attestation: Documented by Angela Mason, acting as a scribe for Prosper Jackson MD. Provider Scribe Attestation: All medical record entries made by the Scribe were at my direction and personally dictated by me. I have reviewed the chart and agree that the record accurately reflects my personal performance of the history, physical exam, medical decision making, and the department course for this patient. I have also personally directed, reviewed, and agree with the discharge instructions and disposition. Disposition - Clinical Impression Clinical Impression: Knee pain - Patient ED Disposition Is Patient to be Admitted: Yes Counseled Patient/Family Regarding: Studies Performed, Diagnosis - Disposition Disposition Time: 12:06 Condition: FAIR - Pt Status Changed To: Hospital Disposition Of: Inpatient - Admit Certification Admit to Inpatient:: After my assessment, the patient will require hospitalization for at least two midnights. This is because of the severity of symptoms shown, intensity of services needed, and/or the medical risk in this patient being treated as an outpatient. - POA Present On Arrival: None
[2018-04-16] MEDS ORDERED: Sodium Chloride 0.9% 1,000 ML IV STA (09:22)
[2018-04-16] MEDS ORDERED: Morphine 4 MG/ML VIAL ONE ×2 (09:34→12:28)
[2018-04-16] MEDS: Morphine 4 MG/ML VIAL IV ONE ×2 (10:00→12:33)
[2018-04-16 10:48] LABS: BASO # 0.1 K/uL (0.0-0.2); BASO % 0.5 % (0.0-2.0); EOS # 0.1 K/uL (0.0-0.7); EOS % 0.5 % (0.0-4.0); HEMOGLOBIN 12.8 g/dL (12.0-16.0); LYMPH % 6.1 % (20.0-40.0); MEAN CORPUSCULAR HEMOGLOBIN 31.5 pg (27.0-31.0); MEAN CORPUSCULAR HGB CONC 34.3 g/dL (33.0-37.0); MEAN PLATELET VOLUME 8.3 fl (7.2-11.7); MONO % 6.5 % (0.0-10.0); NEUT # 13.9 K/uL (1.8-7.0); NEUT % 86.4 % (50.0-75.0); PLATELET COUNT 458 K/uL (130-400); RBC 4.08 Mil/uL (3.80-5.20); RED CELL DISTRIBUTION WIDTH 14.2 % (11.5-14.5); WHITE BLOOD COUNT 16.1 K/uL (4.8-10.8)
[2018-04-16 11:32] LABS: ALB/GLOB RATIO 1.1 (1.0-2.1); ALT/SGPT 31 U/L (9-52); AST/SGOT 25 U/L (14-36); BLOOD UREA NITROGEN 8 mg/dl (7-17); CALCIUM 9.1 mg/dL (8.4-10.2); GFR NON-AFRICAN AMERICAN > 60; URIC ACID 4.8 mg/Dl (2.2-7.5)
[2018-04-16 11:46] LABS: BANDS 3 % (0-2); LYMPHOCYTE 7 % (20-50); MONOCYTE 6 % (0-10); NEUTROPHIL 84 % (42-75); PLATELET ESTIMATE NORMAL (NORMAL); TOTAL CELLS COUNTED 100
[2018-04-16 11:48] LABS: ANISOCYTOSIS SLIGHT; BURR CELLS SLIGHT; POIKILOCYTOSIS SLIGHT
[2018-04-16] MEDS ORDERED: Piperacillin/Tazobact 3.375 GM in Sodium Chloride 0.9% 100 ML IV STA (11:51)
[2018-04-16] MEDS ORDERED: Morphine 5 MG/ML SYRINGE IV ONE (12:45)
[2018-04-16] MEDS ORDERED: Morphine 4 MG/ML VIAL IV ONE (12:45)
[2018-04-16] MEDS ORDERED: Gadodiamide 287 MG/ML VIAL (15ML) IV ONE (12:56)
[2018-04-16] MEDS ORDERED: Piperacillin/Tazobact 3.375 gm Inj IVPB ONE (13:20)
[2018-04-16 14:18] LABS: VENOUS BLOOD GAS BASE EXCESS 0.8 mmol/L (0.0-2.0); VENOUS BLOOD GAS PCO2 55 mmHg (40-60); VENOUS BLOOD GAS PO2 30 mm/Hg (30-55); VENOUS BLOOD PH 7.32 (7.32-7.43)
--- NOTE | 2018-04-16 17:30 | MRI ---
MRI right knee HISTORY: Knee pain. Effusion. Evaluate for septic arthritis. Comparison: None available. Technique: Multi-echo multiplanar sequences were performed through the right knee without and with the use of intravenous contrast. Findings: Large suprapatellar joint effusion. Correlation with joint aspiration and culture sample would be helpful for further evaluation to exclude underlying acute inflammatory and or infectious change. Patchy increased STIR signal with some questionable patchy enhancement seen within the proximal tibia near the tibial spines as well as the medial aspect of the medial proximal tibia. This is nonspecific; however underlying early acute and or developing acute infectious or inflammatory changes cannot be excluded. Clinical correlation. Prominent signal abnormality with increased STIR signal seen within the muscle bellies of the vastus medialis and lateralis musculature suggestive for partial tearing versus underlying myositis secondary to acute infectious and or inflammatory changes. Clinical correlation. Increased signal seen within the distal attachment of the anterior cruciate ligament suggestive for a moderate grade sprain with some partial interstitial tearing. Prominent thinning and fraying of the midportion of the posterior cruciate ligament suggestive for prominent partial tearing. Transverse linear oblique signal seen within the posterior horn of the medial meniscus demonstrating apparent extension to the inferior articular surface with associated blunting of the tip of the body concerning for a tear. Globular increased signal seen within the anterior root and horn of the lateral meniscus suggestive for intrasubstance degeneration or intrasubstance partial tearing. High-grade sprain and or partial tearing of the medial collateral ligament. Lateral collateral ligament complex structures are preserved. Quadriceps tendon is preserved. Patellar tendon is preserved. Mild reticulation and edema within the prepatellar soft tissues. Thickening and fraying with increased signal seen within the medial patellar retinaculum suggestive for a strain and or partial tearing. Mild cartilage thinning and loss overlying the medial and lateral patellar facets. Mild to moderate cartilage thinning and loss involving medial compartment of the femorotibial joint space. Impression: 1. Large suprapatellar joint effusion. Correlation with joint aspiration and culture sample would be helpful for further evaluation to exclude underlying acute inflammatory and or infectious change. 2. Patchy increased STIR signal with some questionable patchy enhancement seen within the proximal tibia near the tibial spines as well as the medial aspect of the medial proximal tibia. This is nonspecific; however underlying early acute and or developing acute infectious or inflammatory changes cannot be excluded. Clinical correlation. 3. Prominent signal abnormality with increased STIR signal seen within the muscle bellies of the vastus medialis and lateralis musculature suggestive for partial tearing versus underlying myositis secondary to acute infectious and or inflammatory changes. Clinical correlation. 4. Increased signal seen within the distal attachment of the anterior cruciate ligament suggestive for a moderate grade sprain with some partial interstitial tearing. 5. Prominent thinning and fraying of the midportion of the posterior cruciate ligament suggestive for prominent partial tearing. 6. Transverse linear oblique signal seen within the posterior horn of the medial meniscus demonstrating apparent extension to the inferior articular surface with associated blunting of the tip of the body concerning for a tear. 7. Globular increased signal seen within the anterior root and horn of the lateral meniscus suggestive for intrasubstance degeneration or intrasubstance partial tearing. 8. High-grade sprain and or partial tearing of the medial collateral ligament. 9. Mild reticulation and edema within the prepatellar soft tissues. 10. Thickening and fraying with increased signal seen within the medial patellar retinaculum suggestive for a strain and or partial tearing. 11. Mild cartilage thinning and loss overlying the medial and lateral patellar facets. Mild to moderate cartilage thinning and loss involving medial compartment of the femorotibial joint space.
[2018-04-16] MEDS ORDERED: Influenza Vaccine (5 YR UP)/PF 60 MCG/0.5 ML SYR IM ONE (17:54)
[2018-04-16] MEDS ORDERED: Dextrose 5%/0.45% NS 1,000 ML IV SCH (19:15)
[2018-04-16] MEDS: Piperacillin/Tazobact 3.375 GM in Sodium Chloride 0.9% 100 ML IVPB SCH (21:07)
[2018-04-17] MEDS: Dextrose 5%/0.45% NS 1,000 ML IV SCH ×3 (00:35→15:57)
[2018-04-17] MEDS: Piperacillin/Tazobact 3.375 GM in Sodium Chloride 0.9% 100 ML IVPB SCH ×4 (03:42→21:49)
[2018-04-17 06:50] LABS: BASO % 0.2 % (0.0-2.0); EOS # 0.2 K/uL (0.0-0.7); EOS % 1.5 % (0.0-4.0); LYMPH # 1.7 K/uL (1.0-4.3); LYMPH % 14.1 % (20.0-40.0); MEAN CELL VOLUME 92.4 fl (81.0-99.0); MEAN CORPUSCULAR HEMOGLOBIN 31.9 pg (27.0-31.0); MEAN CORPUSCULAR HGB CONC 34.5 g/dL (33.0-37.0); MEAN PLATELET VOLUME 7.5 fl (7.2-11.7); MONO # 1.5 K/uL (0.0-0.8); MONO % 12.5 % (0.0-10.0); NEUT # 8.4 K/uL (1.8-7.0); NEUT % 71.7 % (50.0-75.0); NRBC % 0.1 % (0.0-0.0); RBC 3.75 Mil/uL (3.80-5.20); RED CELL DISTRIBUTION WIDTH 13.5 % (11.5-14.5); WHITE BLOOD COUNT 11.7 K/uL (4.8-10.8)
[2018-04-17 06:53] LABS: INR 1.3; PROTHROMBIN TIME 14.8 Seconds (9.8-13.1)
[2018-04-17 07:17] LABS: T4 9.59 ug/dl (5.5-11.0)
[2018-04-17 07:26] LABS: ALBUMIN 3.4 g/dL (3.5-5.0); ALT/SGPT 30 U/L (9-52); AST/SGOT 26 U/L (14-36); BLOOD UREA NITROGEN 6 mg/dl (7-17); GFR NON-AFRICAN AMERICAN 59; HDL CHOLESTEROL 22 MG/DL (30-70)
[2018-04-17 07:29] LABS: LDL CHOLESTEROL 74 mg/dL (0-129)
--- NOTE | 2018-04-17 07:47 | CP.PCM.CON ---
History of Present Illness - History of Present Illness History of Present Illness: Orthopedic consultation: Dr. 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 She reports no recent injury or trauma and notes that the pain begain approximately one week ago upon waking up from a nap. She was evaluated by the [facility] ER, an aspiration was performed resulting with negative synovial fluid culture. She was discharged home stable and was able to walk with a slight limp. Yesterday, her pain and swelling redeveloped and was evaluated by an orthopedic physician at [facility] where another aspiration was performed. Today, the pain and swelling returned so severe to where she was un able to walk or bear weight to the [facility] prompting her visit to the ER. Currently her pain is 9/10, sharp and constant. The pain is associated with swelling and painful ROM. She denies numbness/tingling/radiation of pain. She also denies CP/SOB/N/V/D/fever/dysuria/melena. Review of Systems - Review of Systems All systems: reviewed and no additional remarkable complaints except Review of Systems: as per HPI Past Patient History - Infectious Disease Hx of Infectious Diseases: None - Past Medical History & Family History Past Medical History?: Yes Past Family History: Reviewed and not pertinent - Past Social History Smoking Status: Never Smoked Alcohol: None Drugs: Denies - CARDIAC Hx Cardiac Disorders: Yes - PULMONARY Hx Respiratory Disorders: No - NEUROLOGICAL HX Cerebrovascular Accident: Yes Hx Migraine: Yes - HEENT Hx HEENT Problems: Yes Hx Epistaxis: Yes - RENAL Hx Chronic Kidney Disease: No - ENDOCRINE/METABOLIC Hx Endocrine Disorders: No - HEMATOLOGICAL/ONCOLOGICAL Hx Anemia: Yes - INTEGUMENTARY Hx Dermatological Problems: No - MUSCULOSKELETAL/RHEUMATOLOGICAL Hx Musculoskeletal Disorders: Yes Hx Falls: Yes - GASTROINTESTINAL Hx Gastrointestinal Disorders: Yes Hx Ulcer: Yes - GENITOURINARY/GYNECOLOGICAL Hx Genitourinary Disorders: No - PSYCHIATRIC Hx Anxiety: Yes - SURGICAL HISTORY Hx Surgeries: Yes Hx Tubal Ligation: Yes - ANESTHESIA Hx Anesthesia: Yes Hx Anesthesia Reactions: No Hx Malignant Hyperthermia: No Meds Allergies/Adverse Reactions: Allergies Allergy/AdvReac Type Severity Reaction Status Date / Time eggplant Allergy NAUSEA Uncoded 04/16/18 08:51 - Medications Medications: Current Medications Atorvastatin Calcium (Lipitor) 10 mg PO HS [facility] Last Admin: 04/16/18 21:12 Dose: 10 mg Clopidogrel Bisulfate (Plavix) 75 mg PO DAILY [facility] Dabigatran (Pradaxa) 150 mg PO Q12 [facility]; Protocol Last Admin: 04/16/18 22:48 Dose: Not Given Famotidine (Pepcid) 20 mg PO Q12 [facility] Last Admin: 04/16/18 21:10 Dose: 20 mg Ferrous Sulfate (Feosol) 325 mg PO DAILY [facility] Folic Acid (Folic Acid) 1 mg PO DAILY [facility] Furosemide (Lasix) 20 mg PO DAILY [facility] Piperacillin Sod/Tazobactam (Sod 3.375 gm/ Sodium Chloride) 100 mls @ 100 mls/hr IVPB Q6 [facility]; Protocol Last Admin: 04/17/18 03:42 Dose: 100 mls/hr Dextrose/Sodium Chloride (Dextrose 5%/0.45% Ns 1000 Ml) 1,000 mls @ 80 mls/hr IV .[id number] [facility] Stop: 04/17/18 19:11 Last Admin: 04/17/18 01:06 Dose: Not Given Vancomycin HCl 1 gm/ Sodium (Chloride) 250 mls @ 166.667 mls/hr IVPB Q12 [facility]; Protocol Meclizine HCl (Antivert) 25 mg PO Q12 [facility] Last Admin: 04/16/18 21:10 Dose: 25 mg Morphine Sulfate (Morphine) 4 mg IVP Q4 PRN PRN Reason: Pain, severe (8-10) Last Admin: 04/16/18 21:08 Dose: 4 mg Pregabalin (Lyrica) 75 mg PO Q8 [facility] Last Admin: 04/17/18 00:33 Dose: 75 mg Physical Exam - Constitutional Appears: Well, No Acute Distress - Head Exam Head Exam: ATRAUMATIC, NORMOCEPHALIC - Eye Exam Eye Exam: EOMI, Normal appearance, PERRL - ENT Exam ENT Exam: Mucous Membranes Moist - Respiratory Exam Respiratory Exam: NORMAL BREATHING PATTERN - Cardiovascular Exam Cardiovascular Exam: +S1, +S2 - GI/Abdominal Exam GI & Abdominal Exam: Soft. absent: Tenderness - Extremities Exam Additional comments: R knee: moderate swelling, large effusion +guarding, unable assess ROM 2nd to pain sensation intact SP/DP/TN motor intact EHL/FHL/TA/G DP/PT pulses intact calf soft NT L knee: no swelling, no lesions, no tenderness sensation intact SP/DP/TN motor intact EHL/FHL/TA/G DP/PT pulses intact calf soft NT - Neurological Exam Neurological exam: Alert, Oriented x3 - Psychiatric Exam Psychiatric exam: Normal Affect, Normal Mood - Skin Skin Exam: Normal Color, Warm Results - Vital Signs Recent Vital Signs: Last Vital Signs Temp 98.2 F 04/17/18 02:04 Pulse 95 H 04/17/18 01:00 Resp 18 04/17/18 01:00 BP 108/64 04/17/18 01:00 Pulse Ox 95 04/17/18 01:00 - Labs Result Diagrams: 04/17/18 05:25 04/17/18 05:25 Labs: Laboratory Results - last 24 hr 04/16/18 04/16/18 04/16/18 10:35 11:20 13:18 WBC 16.1 H D RBC 4.08 Hgb 12.8 Hct 37.5 MCV 92.0 MCH 31.5 H MCHC 34.3 RDW 14.2 Plt Count 458 H MPV 8.3 Neut % (Auto) 86.4 H Lymph % (Auto) 6.1 L Loving % (Auto) 6.5 Eos % (Auto) 0.5 Baso % (Auto) 0.5 Neut # (Auto) 13.9 H Lymph # (Auto) 1.0 Loving # (Auto) 1.0 H Eos # (Auto) 0.1 Baso # (Auto) 0.1 Neutrophils % (Manual) 84 H Band Neutrophils % 3 H Lymphocytes % (Manual) 7 L Monocytes % (Manual) 6 Platelet Estimate Normal Poikilocytosis (manual Slight Anisocytosis (manual) Slight Juan Diego Cells Slight PT INR pO2 30 VBG pH 7.32 VBG pCO2 55 VBG HCO3 24.0 VBG Total CO2 30.0 H VBG O2 Sat (Calc) 52.4 VBG Base Excess 0.8 VBG Potassium 4.6 Glucose 96 Lactate 1.2 FiO2 21.0 Sodium 141 141.0 Potassium 4.3 Chloride 104 100.0 Carbon Dioxide 27 Anion Gap 14 BUN 8 Creatinine 0.8 Est GFR ( Amer) > 60 Est GFR (Non-Af Amer) > 60 Random Glucose 118 H Uric Acid 4.8 Calcium 9.1 Total Bilirubin 0.4 AST 25 ALT 31 Alkaline Phosphatase 91 Total Protein 7.7 Albumin 4.0 Globulin 3.7 Albumin/Globulin Ratio 1.1 Triglycerides Cholesterol LDL Cholesterol Direct HDL Cholesterol Thyroxine (T4) TSH 3rd Generation Venous Blood Potassium 4.6 04/17/18 04/17/18 04/17/18 05:25 05:25 05:25 WBC 11.7 H RBC 3.75 L Hgb 12.0 Hct 34.7 MCV 92.4 MCH 31.9 H MCHC 34.5 RDW 13.5 Plt Count 413 H MPV 7.5 Neut % (Auto) 71.7 Lymph % (Auto) 14.1 L Loving % (Auto) 12.5 H Eos % (Auto) 1.5 Baso % (Auto) 0.2 Neut # (Auto) 8.4 H Lymph # (Auto) 1.7 Loving # (Auto) 1.5 H Eos # (Auto) 0.2 Baso # (Auto) 0.0 Neutrophils % (Manual) Band Neutrophils % Lymphocytes % (Manual) Monocytes % (Manual) Platelet Estimate Poikilocytosis (manual Anisocytosis (manual) Madison Cells PT 14.8 H INR 1.3 pO2 VBG pH VBG pCO2 VBG HCO3 VBG Total CO2 VBG O2 Sat (Calc) VBG Base Excess VBG Potassium Glucose Lactate FiO2 Sodium 138 Potassium 3.7 Chloride 103 Carbon Dioxide 28 Anion Gap 11 BUN 6 L Creatinine 1.0 Est GFR ( Amer) > 60 Est GFR (Non-Af Amer) 59 Random Glucose 136 H Uric Acid 3.0 Calcium 9.0 Total Bilirubin 0.6 AST 26 ALT 30 Alkaline Phosphatase 83 Total Protein 6.8 Albumin 3.4 L Globulin 3.4 Albumin/Globulin Ratio 1.0 Triglycerides 77 D Cholesterol 116 LDL Cholesterol Direct 74 HDL Cholesterol 22 L Thyroxine (T4) 9.59 TSH 3rd Generation 4.19 Venous Blood Potassium Assessment & Plan (1) Effusion of right knee Assessment and Plan: Patient with recurrent severely painful right knee effusion -Dr. June recommends arthroscopic washout of the right knee -Plan for OR tomorrow AM due to patient's last dose of pradaxa and plavix yesterday -Medical/Hemetology clearance appreciated -NPO pMN -elevate RLE -Above d/w Dr. June in agreement Status: Acute Radiology Interpretation - Stock Patcher Stock Patcher:: Radiologist - Study type Study type:: MRI - Notes: Notes:: Accession No. : [id number] Patient Name / ID : STEPHANIE MISTRY / [id number] Exam Date : 04/16/2018 14:31:54 ( Approved ) Study Comment : Sex / Age : F / 47Y Creator : Peter Singh MD Dictator : Peter Singh MD School Resource Officer : Barrel Lathe Operator : Peter Singh MD Approver2 : Report Date : 04/16/2018 17:28:35 My Comment : MRI right knee HISTORY: Knee pain. Effusion. Evaluate for septic arthritis. Comparison: None available. Technique: Multi-echo multiplanar sequences were performed through the right knee without and with the use of intravenous contrast. Findings: Large suprapatellar joint effusion. Correlation with joint aspiration and culture sample would be helpful for further evaluation to exclude underlying acute inflammatory and or infectious change. Patchy increased STIR signal with some questionable patchy enhancement seen within the proximal tibia near the tibial spines as well as the medial aspect of the medial proximal tibia. This is nonspecific; however underlying early acute and or developing acute infectious or inflammatory changes cannot be excluded. Clinical correlation. Prominent signal abnormality with increased STIR signal seen within the muscle bellies of the vastus medialis and lateralis musculature suggestive for partial tearing versus underlying myositis secondary to acute infectious and or inflammatory changes. Clinical correlation. Increased signal seen within the distal attachment of the anterior cruciate ligament suggestive for a moderate grade sprain with some partial interstitial tearing. Prominent thinning and fraying of the midportion of the posterior cruciate ligament suggestive for prominent partial tearing. Transverse linear oblique signal seen within the posterior horn of the medial meniscus demonstrating apparent extension to the inferior articular surface with associated blunting of the tip of the body concerning for a tear. Globular increased signal seen within the anterior root and horn of the lateral meniscus suggestive for intrasubstance degeneration or intrasubstance partial tearing. High-grade sprain and or partial tearing of the medial collateral ligament. Lateral collateral ligament complex structures are preserved. Quadriceps tendon is preserved. Patellar tendon is preserved. Mild reticulation and edema within the prepatellar soft tissues. Thickening and fraying with increased signal seen within the medial patellar retinaculum suggestive for a strain and or partial tearing. Mild cartilage thinning and loss overlying the medial and lateral patellar facets. Mild to moderate cartilage thinning and loss involving medial compartment of the femorotibial joint space. Impression: 1. Large suprapatellar joint effusion. Correlation with joint aspiration and culture sample would be helpful for further evaluation to exclude underlying acute inflammatory and or infectious change. 2. Patchy increased STIR signal with some questionable patchy enhancement seen within the proximal tibia near the tibial spines as well as the medial aspect of the medial proximal tibia. This is nonspecific; however underlying early acute and or developing acute infectious or inflammatory changes cannot be excluded. Clinical correlation. 3. Prominent signal abnormality with increased STIR signal seen within the muscle bellies of the vastus medialis and lateralis musculature suggestive for partial tearing versus underlying myositis secondary to acute infectious and or inflammatory changes. Clinical correlation. 4. Increased signal seen within the distal attachment of the anterior cruciate ligament suggestive for a moderate grade sprain with some partial interstitial tearing. 5. Prominent thinning and fraying of the midportion of the posterior cruciate ligament suggestive for prominent partial tearing. 6. Transverse linear oblique signal seen within the posterior horn of the medial meniscus demonstrating apparent extension to the inferior articular surface with associated blunting of the tip of the body concerning for a tear. 7. Globular increased signal seen within the anterior root and horn of the lateral meniscus suggestive for intrasubstance degeneration or intrasubstance partial tearing. 8. High-grade sprain and or partial tearing of the medial collateral ligament. 9. Mild reticulation and edema within the prepatellar soft tissues. 10. Thickening and fraying with increased signal seen within the medial patellar retinaculum suggestive for a strain and or partial tearing. 11. Mild cartilage thinning and loss overlying the medial and lateral patellar facets. Mild to moderate cartilage thinning and loss involving medial compartment of the femorotibial joint space.
--- NOTE | 2018-04-17 09:07 | CARD ---
APPROVED REPORT Date of service: 04/17/2018 EKG Measurement Heart [id number] <Conclusion> Normal sinus rhythm Normal ECG
--- NOTE | 2018-04-17 11:06 | CP.PCM.HP ---
History of Present Illness - History of Present Illness History of Present Illness: 47 yrs old female ,CC Pain , Swelling R knee two weeks with progressive pain ,swelling , ROM decreased R knee , no trauma, Pt was seen ER 04-06-18 , Arthrocentesis C-S negative. 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 Ortho consult Dr June recommendation OR Arthroscopy today Hx of Coagulopathy MTHFR mutation , CVA, L Subclavian thrombus , on Pradaxa, Plavix, last dosis yesterday Present on Admission - Present on Admission Any Indicators Present on Admission: No Review of Systems - Constitutional Constitutional: Other - EENT Eyes: Other Ears: Other Nose/Mouth/Throat: Other - Cardiovascular Cardiovascular: Other - Respiratory Respiratory: Other - Gastrointestinal Gastrointestinal: Other - Genitourinary Genitourinary: Other - Reproductive: Female Reproductive:Female: Other - Menstruation Menstruation: Other - Musculoskeletal Musculoskeletal: Arthralgias, Myalgias Additional comments: Pain R knee - Integumentary Integumentary: Other - Neurological Neurological: Other - Psychiatric Psychiatric: Anxiety - Endocrine Endocrine: Other - Hematologic/Lymphatic Hematologic: Other Past Patient History - Infectious Disease Hx of Infectious Diseases: None - Past Medical History & Family History Past Medical History?: Yes - Past Social History Smoking Status: Never Smoked - CARDIAC Hx Cardiac Disorders: Yes - PULMONARY Hx Respiratory Disorders: No - NEUROLOGICAL HX Cerebrovascular Accident: Yes Hx Migraine: Yes - HEENT Hx HEENT Problems: Yes Hx Epistaxis: Yes - RENAL Hx Chronic Kidney Disease: No - ENDOCRINE/METABOLIC Hx Endocrine Disorders: No - HEMATOLOGICAL/ONCOLOGICAL Hx Anemia: Yes Other/Comment: Coagulathy - INTEGUMENTARY Hx Dermatological Problems: No - MUSCULOSKELETAL/RHEUMATOLOGICAL Hx Musculoskeletal Disorders: Yes Hx Falls: Yes - GASTROINTESTINAL Hx Gastrointestinal Disorders: Yes Hx Ulcer: Yes - GENITOURINARY/GYNECOLOGICAL Hx Genitourinary Disorders: No - PSYCHIATRIC Hx Anxiety: Yes - SURGICAL HISTORY Hx Surgeries: Yes Hx Tubal Ligation: Yes - ANESTHESIA Hx Anesthesia: Yes Hx Anesthesia Reactions: No Hx Malignant Hyperthermia: No Meds Allergies/Adverse Reactions: Allergies Allergy/AdvReac Type Severity Reaction Status Date / Time eggplant Allergy NAUSEA Uncoded 04/16/18 08:51 Physical Exam - Head Exam Head Exam: NORMAL INSPECTION - Eye Exam Eye Exam: PERRL - ENT Exam ENT Exam: Normal Exam - Neck Exam Neck exam: Positive for: Normal Inspection - Respiratory Exam Respiratory Exam: Clear to Auscultation Bilateral - Cardiovascular Exam Cardiovascular Exam: REGULAR RHYTHM - Extremities Exam Additional comments: swelling tenderness, warmth , ROM decreased R knee, L knee no tenderness, full ROM - Back Exam Back exam: NORMAL INSPECTION - Neurological Exam Neurological exam: Alert, CN II-XII Intact, Oriented x3 Additional comments: LUE weakness with numbness - Psychiatric Exam Psychiatric exam: Anxious - Skin Skin Exam: Warm Results - Vital Signs Recent Vital Signs: Last Vital Signs Temp 98.1 F 04/17/18 08:21 Pulse 62 04/17/18 08:21 Resp 20 04/17/18 08:21 BP 117/71 04/17/18 08:21 Pulse Ox 96 04/17/18 08:21 - Labs Result Diagrams: 04/17/18 05:25 04/17/18 05:25 Labs: Laboratory Results - last 24 hr 04/16/18 04/16/18 04/16/18 10:35 11:20 13:18 WBC RBC Hgb Hct MCV MCH MCHC RDW Plt Count MPV Neut % (Auto) Lymph % (Auto) Bibb % (Auto) Eos % (Auto) Baso % (Auto) Neut # (Auto) Lymph # (Auto) Bibb # (Auto) Eos # (Auto) Baso # (Auto) Neutrophils % (Manual) 84 H Band Neutrophils % 3 H Lymphocytes % (Manual) 7 L Monocytes % (Manual) 6 Platelet Estimate Normal Poikilocytosis (manual Slight Anisocytosis (manual) Slight Edelstein Cells Slight ESR PT INR pO2 30 VBG pH 7.32 VBG pCO2 55 VBG HCO3 24.0 VBG Total CO2 30.0 H VBG O2 Sat (Calc) 52.4 VBG Base Excess 0.8 VBG Potassium 4.6 Glucose 96 Lactate 1.2 FiO2 21.0 Sodium 141 141.0 Potassium 4.3 Chloride 104 100.0 Carbon Dioxide 27 Anion Gap 14 BUN 8 Creatinine 0.8 Est GFR ( Amer) > 60 Est GFR (Non-Af Amer) > 60 Random Glucose 118 H Uric Acid 4.8 Calcium 9.1 Total Bilirubin 0.4 AST 25 ALT 31 Alkaline Phosphatase 91 Total Protein 7.7 Albumin 4.0 Globulin 3.7 Albumin/Globulin Ratio 1.1 Triglycerides Cholesterol LDL Cholesterol Direct HDL Cholesterol Thyroxine (T4) TSH 3rd Generation Venous Blood Potassium 4.6 04/17/18 04/17/18 04/17/18 05:25 05:25 05:25 WBC 11.7 H RBC 3.75 L Hgb 12.0 Hct 34.7 MCV 92.4 MCH 31.9 H MCHC 34.5 RDW 13.5 Plt Count 413 H MPV 7.5 Neut % (Auto) 71.7 Lymph % (Auto) 14.1 L Bibb % (Auto) 12.5 H Eos % (Auto) 1.5 Baso % (Auto) 0.2 Neut # (Auto) 8.4 H Lymph # (Auto) 1.7 Bibb # (Auto) 1.5 H Eos # (Auto) 0.2 Baso # (Auto) 0.0 Neutrophils % (Manual) Band Neutrophils % Lymphocytes % (Manual) Monocytes % (Manual) Platelet Estimate Poikilocytosis (manual Anisocytosis (manual) Juan Diego Cells ESR 93 H PT 14.8 H INR 1.3 pO2 VBG pH VBG pCO2 VBG HCO3 VBG Total CO2 VBG O2 Sat (Calc) VBG Base Excess VBG Potassium Glucose Lactate FiO2 Sodium 138 Potassium 3.7 Chloride 103 Carbon Dioxide 28 Anion Gap 11 BUN 6 L Creatinine 1.0 Est GFR ( Amer) > 60 Est GFR (Non-Af Amer) 59 Random Glucose 136 H Uric Acid 3.0 Calcium 9.0 Total Bilirubin 0.6 AST 26 ALT 30 Alkaline Phosphatase 83 Total Protein 6.8 Albumin 3.4 L Globulin 3.4 Albumin/Globulin Ratio 1.0 Triglycerides 77 D Cholesterol 116 LDL Cholesterol Direct 74 HDL Cholesterol 22 L Thyroxine (T4) 9.59 TSH 3rd Generation 4.19 Venous Blood Potassium Assessment & Plan (1) Effusion of right knee Status: Acute (2) History of CVA (cerebrovascular accident) Status: Chronic (3) Left subclavian vein thrombosis Status: Acute Comment: Hx (4) MTHFR mutation Status: Chronic - Assessment and Plan (Free Text) Plan: 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
--- NOTE | 2018-04-17 11:24 | CP.PCM.CON ---
History of Present Illness - History of Present Illness History of Present Illness: 47 year old female with a history of migraines, CVA with MTHFR on antiplatelet and therapeutic anticoagulation, admitted with concern for septic arthritis of the left knee requiring orthopedic washout. The patient notes to recent joint swelling and had recent joint fluid aspiration. Fluid analysis is still pending. She notes the swelling in her knee recurred and was more painful with concern for infection. She came to the hospital and is schedule for arthroscopy and washout. I have been asked to clear her for the procedure from a hematologic standpoint. She last took Plavix and Pradaxa yesterday. She does not take aspirin. She denies abnormal bleeding and bruising. Past medical history: Migraines, CVA, MTHFR mutation Past surgical history: None Family history: Mother had stroke in her 40s Social history: Denies tobacco, alcohol, and illicit drug use. Allergies: NKA Review of systems: All remaining review of systems including HEENT, cardiovascular, respiratory, gastrointestinal, genitourinary, musculoskeletal, dermatologic, neurologic, and psychiatric are negative unless mentioned in the HPI. Past Patient History - Infectious Disease Hx of Infectious Diseases: None - Past Medical History & Family History Past Medical History?: Yes - Past Social History Smoking Status: Never Smoked - CARDIAC Hx Cardiac Disorders: Yes - PULMONARY Hx Respiratory Disorders: No - NEUROLOGICAL HX Cerebrovascular Accident: Yes Hx Migraine: Yes - HEENT Hx HEENT Problems: Yes Hx Epistaxis: Yes - RENAL Hx Chronic Kidney Disease: No - ENDOCRINE/METABOLIC Hx Endocrine Disorders: No - HEMATOLOGICAL/ONCOLOGICAL Hx Anemia: Yes - INTEGUMENTARY Hx Dermatological Problems: No - MUSCULOSKELETAL/RHEUMATOLOGICAL Hx Musculoskeletal Disorders: Yes Hx Falls: Yes - GASTROINTESTINAL Hx Gastrointestinal Disorders: Yes Hx Ulcer: Yes - GENITOURINARY/GYNECOLOGICAL Hx Genitourinary Disorders: No - PSYCHIATRIC Hx Anxiety: Yes - SURGICAL HISTORY Hx Surgeries: Yes Hx Tubal Ligation: Yes - ANESTHESIA Hx Anesthesia: Yes Hx Anesthesia Reactions: No Hx Malignant Hyperthermia: No Meds Allergies/Adverse Reactions: Allergies Allergy/AdvReac Type Severity Reaction Status Date / Time eggplant Allergy NAUSEA Uncoded 04/16/18 08:51 - Medications Medications: Current Medications Atorvastatin Calcium (Lipitor) 10 mg PO HS [facility] Last Admin: 04/16/18 21:12 Dose: 10 mg Famotidine (Pepcid) 20 mg PO Q12 [facility] Last Admin: 04/17/18 08:40 Dose: Not Given Ferrous Sulfate (Feosol) 325 mg PO DAILY [facility] Last Admin: 04/17/18 08:37 Dose: Not Given Folic Acid (Folic Acid) 1 mg PO DAILY [facility] Last Admin: 04/17/18 08:37 Dose: Not Given Furosemide (Lasix) 20 mg PO DAILY [facility] Last Admin: 04/17/18 08:37 Dose: Not Given Piperacillin Sod/Tazobactam (Sod 3.375 gm/ Sodium Chloride) 100 mls @ 100 mls/hr IVPB Q6 [facility]; Protocol Last Admin: 04/17/18 11:11 Dose: 100 mls/hr Dextrose/Sodium Chloride (Dextrose 5%/0.45% Ns 1000 Ml) 1,000 mls @ 80 mls/hr IV .[id number] [facility] Stop: 04/17/18 19:11 Last Admin: 04/17/18 01:06 Dose: Not Given Vancomycin HCl 1 gm/ Sodium (Chloride) 250 mls @ 166.667 mls/hr IVPB Q12 [facility]; Protocol Last Admin: 04/17/18 08:43 Dose: 166.667 mls/hr Idarucizumab (Praxbind) 2.5 gm IV Q5MIN [facility] Stop: 04/18/18 10:01 Meclizine HCl (Antivert) 25 mg PO Q12 [facility] Last Admin: 04/17/18 08:37 Dose: Not Given Morphine Sulfate (Morphine) 4 mg IVP Q4 PRN PRN Reason: Pain, severe (8-10) Last Admin: 04/17/18 08:42 Dose: 4 mg Pregabalin (Lyrica) 75 mg PO Q8 [facility] Last Admin: 04/17/18 08:38 Dose: Not Given Physical Exam - Head Exam Head Exam: ATRAUMATIC - Eye Exam Eye Exam: Normal appearance - ENT Exam ENT Exam: Mucous Membranes Dry - Respiratory Exam Respiratory Exam: NORMAL BREATHING PATTERN - Cardiovascular Exam Cardiovascular Exam: +S1, +S2 - GI/Abdominal Exam GI & Abdominal Exam: Normal Bowel Sounds - Extremities Exam Extremities exam: Positive for: pedal edema - Neurological Exam Neurological exam: Oriented x3 - Psychiatric Exam Psychiatric exam: Normal Affect, Normal Mood - Skin Skin Exam: Warm Results - Vital Signs Recent Vital Signs: Last Vital Signs Temp 98.1 F 04/17/18 08:21 Pulse 62 04/17/18 08:21 Resp 20 04/17/18 08:21 BP 117/71 04/17/18 08:21 Pulse Ox 96 04/17/18 08:21 - Labs Result Diagrams: 04/17/18 05:25 04/17/18 05:25 Labs: Laboratory Results - last 24 hr 04/16/18 04/16/18 04/16/18 10:35 11:20 13:18 WBC RBC Hgb Hct MCV MCH MCHC RDW Plt Count MPV Neut % (Auto) Lymph % (Auto) [place] % (Auto) Eos % (Auto) Baso % (Auto) Neut # (Auto) Lymph # (Auto) [place] # (Auto) Eos # (Auto) Baso # (Auto) Neutrophils % (Manual) 84 H Band Neutrophils % 3 H Lymphocytes % (Manual) 7 L Monocytes % (Manual) 6 Platelet Estimate Normal Poikilocytosis (manual Slight Anisocytosis (manual) Slight [place] Cells Slight ESR PT INR pO2 30 VBG pH 7.32 VBG pCO2 55 VBG HCO3 24.0 VBG Total CO2 30.0 H VBG O2 Sat (Calc) 52.4 VBG Base Excess 0.8 VBG Potassium 4.6 Glucose 96 Lactate 1.2 FiO2 21.0 Sodium 141 141.0 Potassium 4.3 Chloride 104 100.0 Carbon Dioxide 27 Anion Gap 14 BUN 8 Creatinine 0.8 Est GFR ( Amer) > 60 Est GFR (Non-Af Amer) > 60 Random Glucose 118 H Uric Acid 4.8 Calcium 9.1 Total Bilirubin 0.4 AST 25 ALT 31 Alkaline Phosphatase 91 Total Protein 7.7 Albumin 4.0 Globulin 3.7 Albumin/Globulin Ratio 1.1 Triglycerides Cholesterol LDL Cholesterol Direct HDL Cholesterol Thyroxine (T4) TSH 3rd Generation Venous Blood Potassium 4.6 04/17/18 04/17/18 04/17/18 05:25 05:25 05:25 WBC 11.7 H RBC 3.75 L Hgb 12.0 Hct 34.7 MCV 92.4 MCH 31.9 H MCHC 34.5 RDW 13.5 Plt Count 413 H MPV 7.5 Neut % (Auto) 71.7 Lymph % (Auto) 14.1 L [place] % (Auto) 12.5 H Eos % (Auto) 1.5 Baso % (Auto) 0.2 Neut # (Auto) 8.4 H Lymph # (Auto) 1.7 [place] # (Auto) 1.5 H Eos # (Auto) 0.2 Baso # (Auto) 0.0 Neutrophils % (Manual) Band Neutrophils % Lymphocytes % (Manual) Monocytes % (Manual) Platelet Estimate Poikilocytosis (manual Anisocytosis (manual) [place] Cells ESR 93 H PT 14.8 H INR 1.3 pO2 VBG pH VBG pCO2 VBG HCO3 VBG Total CO2 VBG O2 Sat (Calc) VBG Base Excess VBG Potassium Glucose Lactate FiO2 Sodium 138 Potassium 3.7 Chloride 103 Carbon Dioxide 28 Anion Gap 11 BUN 6 L Creatinine 1.0 Est GFR ( Amer) > 60 Est GFR (Non-Af Amer) 59 Random Glucose 136 H Uric Acid 3.0 Calcium 9.0 Total Bilirubin 0.6 AST 26 ALT 30 Alkaline Phosphatase 83 Total Protein 6.8 Albumin 3.4 L Globulin 3.4 Albumin/Globulin Ratio 1.0 Triglycerides 77 D Cholesterol 116 LDL Cholesterol Direct 74 HDL Cholesterol 22 L Thyroxine (T4) 9.59 TSH 3rd Generation 4.19 Venous Blood Potassium Assessment & Plan - Assessment and Plan (Free Text) Assessment: 1. Surgical clearance - Pradaxa and Plavix taken yesterday - will give Praxbind 2.5mg x 2 does to reverse Pradaxa given need for emergent orthopedic surgery today - she is cleared from a hematologic standpoint for orthopedic surgery after Praxbind administration - I have spoken to anesthesiology about the need for platelet transfusion ONLY IF the patient develops abnormal significant bleeding during the procedure - she is at risk for clotting and platelets should not be empirically given to her - recommend restarting Pradaxa and Plavix as soon as possible and when cleared by orthopedics 2. MTHFR mutation with CVA and arterial clotting - on antiplatelet and therapeutic anticoagulation - folic acid daily Thank you for this interesting consult.
--- NOTE | 2018-04-17 11:52 | RAD ---
Date of service: 04/16/2018 PROCEDURE: CHEST RADIOGRAPH, 1 VIEW HISTORY: preop COMPARISON: 03/21/2018 chest x-ray FINDINGS: LUNGS: Clear. PLEURA: No pneumothorax or pleural fluid seen. CARDIOVASCULAR: Normal. OSSEOUS STRUCTURES: No significant abnormalities. VISUALIZED UPPER ABDOMEN: Normal. OTHER FINDINGS: None. IMPRESSION: No active disease.No interval pathology noted.
--- NOTE | 2018-04-17 13:46 | CP.PCM.PN ---
Subjective - Date & Time of Evaluation Date of Evaluation: 04/17/18 Time of Evaluation: 13:15 - Subjective Subjective: CC: Pt with severe pain andrestrcited ROM Right knee HPI: 47 yo female presents ot ER 2ndary to perisiste, recurrent and svere R knee pain and rstricted ROM. Pt presented to ERwith tense swollen Right knee. Pt has undergone 2 aspirations- without success and withoput defitinitive diganosis Pt is admitted medical stabilization accomplished and pt to OR after medical clearnce (pt has been maintained on pradaxa and plavix) Objective - Vital Signs/Intake and Output Vital Signs (last 24 hours): Temp Pulse Resp BP Pulse Ox 98.1 F 62 20 117/71 96 04/17/18 08:21 04/17/18 08:21 04/17/18 08:21 04/17/18 08:21 04/17/18 08:21 - Medications Medications: Current Medications Atorvastatin Calcium (Lipitor) 10 mg PO HS [facility] Last Admin: 04/16/18 21:12 Dose: 10 mg Famotidine (Pepcid) 20 mg PO Q12 [facility] Last Admin: 04/17/18 08:40 Dose: Not Given Ferrous Sulfate (Feosol) 325 mg PO DAILY [facility] Last Admin: 04/17/18 08:37 Dose: Not Given Folic Acid (Folic Acid) 1 mg PO DAILY [facility] Last Admin: 04/17/18 08:37 Dose: Not Given Furosemide (Lasix) 20 mg PO DAILY [facility] Last Admin: 04/17/18 08:37 Dose: Not Given Piperacillin Sod/Tazobactam (Sod 3.375 gm/ Sodium Chloride) 100 mls @ 100 mls/hr IVPB Q6 [facility]; Protocol Last Admin: 04/17/18 11:11 Dose: 100 mls/hr Dextrose/Sodium Chloride (Dextrose 5%/0.45% Ns 1000 Ml) 1,000 mls @ 80 mls/hr IV .[id number] [facility] Stop: 04/17/18 19:11 Last Admin: 04/17/18 01:06 Dose: Not Given Vancomycin HCl 1 gm/ Sodium (Chloride) 250 mls @ 166.667 mls/hr IVPB Q12 [facility]; Protocol Last Admin: 04/17/18 08:43 Dose: 166.667 mls/hr Idarucizumab (Praxbind) 2.5 gm IV Q5MIN [facility] Stop: 04/18/18 10:01 Meclizine HCl (Antivert) 25 mg PO Q12 [facility] Last Admin: 04/17/18 08:37 Dose: Not Given Morphine Sulfate (Morphine) 4 mg IVP Q4 PRN PRN Reason: Pain, severe (8-10) Last Admin: 04/17/18 12:56 Dose: 4 mg Pregabalin (Lyrica) 75 mg PO Q8 [facility] Last Admin: 04/17/18 08:38 Dose: Not Given - Labs Labs: 04/17/18 05:25 04/17/18 05:25 PT 14.8 Seconds (9.8-13.1) H 04/17/18 05:25 INR 1.3 04/17/18 05:25 - Additional Findings Additional findings: Musculoskekltal exam pt afebirle (temp=98.1) VSS encounter accomplished at bedside stance/gait- defrred ROM R knee restricted pt with extremel;y tense and full suprapatella effusion N/V intact no gross defiicts Assessment and Plan - Assessment and Plan (Free Text) Assessment: A- Recureent/painful R knee effusion P- to OR after medcial clearance ( MRI findings noted) pros cons risks and b enfits of surgical approach discussed at length with pt and her /possibility of later secondary or tertiary surgery discussed NO PROMISES/ guarantees
--- NOTE | 2018-04-17 16:15 | CP.PCM.PN ---
Subjective - Date & Time of Evaluation Date of Evaluation: 04/17/18 Time of Evaluation: 16:12 - Subjective Subjective: I D NOTE PATIENT EXAMINED ,HISTORY TAKEN FROM PATIENT AND FROM EMR. FULL CONSULT DICTATED Objective - Vital Signs/Intake and Output Vital Signs (last 24 hours): Temp Pulse Resp BP Pulse Ox 99.1 F 76 18 106/69 93 L 04/17/18 15:54 04/17/18 15:54 04/17/18 15:54 04/17/18 15:59 04/17/18 15:54 - Medications Medications: Current Medications Atorvastatin Calcium (Lipitor) 10 mg PO HS [facility] Last Admin: 04/16/18 21:12 Dose: 10 mg Famotidine (Pepcid) 20 mg PO Q12 [facility] Last Admin: 04/17/18 08:40 Dose: Not Given Ferrous Sulfate (Feosol) 325 mg PO DAILY [facility] Last Admin: 04/17/18 15:59 Dose: 325 mg Folic Acid (Folic Acid) 1 mg PO DAILY [facility] Last Admin: 04/17/18 15:59 Dose: 1 mg Furosemide (Lasix) 20 mg PO DAILY [facility] Last Admin: 04/17/18 15:59 Dose: 20 mg Piperacillin Sod/Tazobactam (Sod 3.375 gm/ Sodium Chloride) 100 mls @ 100 mls/hr IVPB Q6 [facility]; Protocol Last Admin: 04/17/18 16:01 Dose: 100 mls/hr Dextrose/Sodium Chloride (Dextrose 5%/0.45% Ns 1000 Ml) 1,000 mls @ 80 mls/hr IV .[id number] [facility] Stop: 04/17/18 19:11 Last Admin: 04/17/18 15:57 Dose: 80 mls/hr Vancomycin HCl 1 gm/ Sodium (Chloride) 250 mls @ 166.667 mls/hr IVPB Q12 [facility]; Protocol Last Admin: 04/17/18 08:43 Dose: 166.667 mls/hr Cefepime HCl 1 gm/ Sodium (Chloride) 100 mls @ 100 mls/hr IVPB Q12 [facility]; Protocol Idarucizumab (Praxbind) 2.5 gm IV [facility] Stop: 04/19/18 07:01 Meclizine HCl (Antivert) 25 mg PO Q12 [facility] Last Admin: 04/17/18 08:37 Dose: Not Given Morphine Sulfate (Morphine) 4 mg IVP Q4 PRN PRN Reason: Pain, severe (8-10) Last Admin: 04/17/18 12:56 Dose: 4 mg Pregabalin (Lyrica) 75 mg PO Q8 [facility] Last Admin: 04/17/18 16:00 Dose: 75 mg - Labs Labs: 04/17/18 05:25 04/17/18 05:25 PT 14.8 Seconds (9.8-13.1) H 04/17/18 05:25 INR 1.3 04/17/18 05:25
[2018-04-17] MEDS: Cefepime 1 GM in Sodium Chloride 0.9% 100 ML IVPB SCH (20:40)
[2018-04-18] MEDS: Piperacillin/Tazobact 3.375 GM in Sodium Chloride 0.9% 100 ML IVPB SCH ×2 (03:08→16:14)
--- NOTE | 2018-04-18 03:21 | CON ---
DATE: 04/17/2018 INFECTIOUS DISEASE CONSULTATION ATTENDING PHYSICIAN: Lei Alejo MD HISTORY OF PRESENT ILLNESS: This is a 47-year-old female who has had a difficult past year. Her past medical history includes what appears to be multiple CVAs, left subclavian thrombosis, and also MSSA sepsis along with an enterococcal urinary tract infection. She is presently on Pradaxa. The patient has a history of having lied down for nap which she states she takes more frequently now since here stroke and woke up with swelling of the right knee. She continued to have progressive pain and swelling and went to the emergency room on 04/06/2018. There was arthrocentesis done there, and the cultures taken were negative. She also went to her private orthopedist post this procedure and had another greater than 100 mL removed from the knee by him. Subsequently, the knee began continued to swell over the past weeks and she had significant pain, and she came to the emergency room. She is presently scheduled for the OR tomorrow for incision and drainage of the knee. While examining her, the patient was in significant pain and on exam, it was difficult to touch the area of the knee ventrally and distally, and she was unable to flex the knee well because of the pain. PAST MEDICAL HISTORY: Again includes coagulopathy which she has had multiple CVAs which apparently I think were noted to be cerebellar in origin and she had a subclavian vein thrombosis. SOCIAL HISTORY: The patient never smoked and has no history of drinking. LABORATORY DATA: Lab shows on 04/16/2018: She had a GFR of greater than 60, creatinine of 0.8, and BUN of 8. Today, her BUN is 6 and her GFR is 59. Glucose is 136. HDL cholesterol is 22. WBC was 16.1 on 04/16/2018. Today, it is 11.7 after receiving IV antibiotics. Hemoglobin is 12. Platelet count 458 on 04/16/2018 and 413 on today. She has a left shift with 84% polys. Her PT is 14.8 and her INR is 1.3. Her culture from the emergency room taken from the knee is negative for bacteria. Again of note back in 09/2017, she had a sepsis with Staph aureus and also had a UTI with Enterococcus. This was treated at that time. PHYSICAL EXAMINATION: GENERAL: The patient is pleasant, alert, cooperative female who is oriented to time and place. She does have some difficulty placing the dates when she had some of her clinical issues. HEENT: Within normal limits. NECK: Supple. LUNGS: Definitely clear bilaterally. HEART: Regular sinus rhythm. ABDOMEN: Soft. Positive bowel sounds. EXTREMITIES: Right lower extremity knee is significantly swollen. There is a decreased range of motion, and there is significant tenderness and warmth. Left knee is okay. Left knee is not swollen, but the left upper extremity shows weakness with some numbness. IMPRESSION AND PLAN: 1. Effusion of right knee, probably bacterial in origin. 2. Coagulopathy. 3. History of cerebrovascular accident and left subclavian vein thrombosis. The patient was cleared by technical account manager for the incision and drainage tomorrow. Of note, MRI of the right knee shows a large suprapateller joint effusion, patchy increased STIR signal with some questionable patchy enhancement seen with the proximal tibia at the tibial spine as well as the medial aspect of the medial proximal tibia. This is not specific, however. Underlying early acute and/or developing acute infectious or inflammatory changes cannot be excluded. Again, impression is right knee effusion possibly likely bacterial in origin. I have discussed this with Dr. June's resident also. Darwin Rodriguez MD
[2018-04-18] MEDS ORDERED: Succinylcholine 200 mg/10 ml Inj IV ONE (07:15)
[2018-04-18] MEDS ORDERED: Propofol 10 mg/ml Inj (20 ML) ONE (07:15)
[2018-04-18] MEDS ORDERED: Lidocaine 2% PF (10 ml) Amp ONE (07:17)
[2018-04-18] MEDS ORDERED: Bacitracin Ointment 30 GM TUBE ONE (07:18)
[2018-04-18] MEDS ORDERED: Dexamethasone 4 mg/1 ml ONE (07:19)
[2018-04-18] MEDS ORDERED: Lactated Ringer's 1,000 ML IV ONE (08:25)
[2018-04-18] MEDS ORDERED: Midazolam 2 MG/2 ML VIAL ONE (08:29)
[2018-04-18] MEDS ORDERED: Cefepime (Maxipime) 1 g Inj IVPB ONE (09:15)
[2018-04-18] MEDS ORDERED: Piperacillin/Tazobact 3.375 gm Inj IVPB ONE (09:25)
[2018-04-18] MEDS ORDERED: Vancomycin 1 g Inj IVPB ONE ×2 (09:26→09:30)
[2018-04-18] MEDS ORDERED: Phenylephrine 10 mg/ml Inj ONE (09:33)
[2018-04-18 09:54] LABS: FLUID TYPE SYNOVIAL FLUID
[2018-04-18] MEDS ORDERED: Oxycodone/Acetaminophen 5/325 mg Tab PO PRN (10:23)
[2018-04-18] MEDS ORDERED: Lactated Ringer's 1,000 ML IV SCH (10:30)
[2018-04-18 11:01] LABS: SF GROSS APPEARANCE TURBID (CLEAR)
[2018-04-18 11:18] LABS: SYNOVIAL FLUID COMMENT MODERATELY MILKY
[2018-04-18 11:22] LABS: SYNOVIAL FLUID MONO/MACROPHAGE 2 % (0-0)
--- NOTE | 2018-04-18 13:28 | CP.PCM.PN ---
Subjective - Date & Time of Evaluation Date of Evaluation: 04/18/18 - Subjective Subjective: F/U S/P Arthroscopy R knee today. Pt Awake, no c/o of pain in R knee now, R knee immobilized, Objective - Vital Signs/Intake and Output Vital Signs (last 24 hours): Temp Pulse Resp BP Pulse Ox 97 F L 80 19 99/55 L 97 04/18/18 12:30 04/18/18 12:30 04/18/18 12:30 04/18/18 12:30 04/18/18 12:30 Intake and Output: 04/18/18 04/18/18 06:59 18:59 Intake Total 650 Balance 650 - Medications Medications: Current Medications Acetaminophen (Tylenol 325mg Tab) 650 mg PO Q4 PRN PRN Reason: Fever 101 degrees fahrenheit Atorvastatin Calcium (Lipitor) 10 mg PO HS [facility] Last Admin: 04/17/18 21:49 Dose: 10 mg Docusate Sodium (Colace) 100 mg PO BID [facility] Famotidine (Pepcid) 20 mg PO Q12 [facility] Last Admin: 04/17/18 21:49 Dose: 20 mg Ferrous Sulfate (Feosol) 325 mg PO DAILY [facility] Last Admin: 04/17/18 15:59 Dose: 325 mg Folic Acid (Folic Acid) 1 mg PO DAILY [facility] Last Admin: 04/17/18 15:59 Dose: 1 mg Furosemide (Lasix) 20 mg PO DAILY [facility] Last Admin: 04/17/18 15:59 Dose: 20 mg Piperacillin Sod/Tazobactam (Sod 3.375 gm/ Sodium Chloride) 100 mls @ 100 mls/hr IVPB Q6 [facility]; Protocol Last Admin: 04/18/18 03:08 Dose: 100 mls/hr Vancomycin HCl 1 gm/ Sodium (Chloride) 250 mls @ 166.667 mls/hr IVPB Q12 [facility]; P rotocol Last Admin: 04/17/18 20:41 Dose: 166.667 mls/hr Cefepime HCl 1 gm/ Sodium (Chloride) 100 mls @ 100 mls/hr IVPB Q12 [facility]; Protocol Last Admin: 04/17/18 20:40 Dose: 100 mls/hr Lactated Ringer's (Lactated Ringer's) 1,000 mls @ 100 mls/hr IV .Q10H [facility] Lactated Ringer's (Lactated Ringer's) 1,000 mls @ 100 mls/hr IV .Q10H [facility] Idarucizumab (Praxbind) 2.5 gm IV [facility] Stop: 04/19/18 06:01 Last Admin: 04/18/18 07:00 Dose: 2.5 gm Meclizine HCl (Antivert) 25 mg PO Q12 [facility] Last Admin: 04/17/18 21:49 Dose: 25 mg Morphine Sulfate (Morphine) 4 mg IVP Q3 PRN PRN Reason: Pain, severe (8-10) Last Admin: 04/18/18 03:09 Dose: 4 mg Oxycodone/Acetaminophen (Percocet 5/325 Mg Tab) 2 tab PO Q4 PRN PRN Reason: Pain, moderate (4-7) Stop: 04/21/18 10:24 Pregabalin (Lyrica) 75 mg PO Q8 [facility] Last Admin: 04/18/18 01:09 Dose: 75 mg - Labs Labs: 04/17/18 05:25 04/17/18 05:25 PT 14.8 Seconds (9.8-13.1) H 04/17/18 05:25 INR 1.3 04/17/18 05:25 - Constitutional Appears: No Acute Distress - Head Exam Head Exam: NORMAL INSPECTION - Eye Exam Eye Exam: PERRL - ENT Exam ENT Exam: Normal Exam - Neck Exam Neck Exam: Normal Inspection - Respiratory Exam Respiratory Exam: Clear to Ausculation Bilateral - Cardiovascular Exam Cardiovascular Exam: REGULAR RHYTHM - GI/Abdominal Exam GI & Abdominal Exam: Soft, Normal Bowel Sounds - Extremities Exam Additional comments: R knee immobilized - Back Exam Back Exam: NORMAL INSPECTION - Neurological Exam Neurological Exam: Alert, CN II-XII Intact, Oriented x3 Additional comments: LUE weakness with numbness. - Psychiatric Exam Psychiatric exam: Anxious - Skin Skin Exam: Warm Assessment and Plan (1) S/P arthroscopic surgery of right knee Status: Acute (2) Effusion of right knee Status: Acute (3) History of CVA (cerebrovascular accident) Status: Chronic (4) Left subclavian vein thrombosis Status: Acute (5) MTHFR mutation Status: Chronic - Assessment and Plan (Free Text) Plan: F/U Fluid from Knee C-S. Continue Cefepime, Vanco, Morphine and rest of Tx.
[2018-04-18] MEDS: Lactated Ringer's 1,000 ML IV SCH ×2 (13:37→20:00)
--- NOTE | 2018-04-18 14:28 | PCM.SURG1 ---
Surgeon's Initial Post Op Note - Surgeon's Notes Surgeon: Shaylee Flake [employer]: DORY Bailey Type of Anesthesia: General Endo Anesthesia Administered By: DR Schultz Pre-Operative Diagnosis: Septic R knee Operative Findings: grossly septic R knee. tear medial meniscus/tear lateral meniscus. tricompartmental synovitis Post-Operative Diagnosis: as above Operation Performed: arthroscopic incision/drainage. arthroscopic partial tricompartmental synovectomy. arthroscopic partial medial/lateral meniscectomy. applx knee immobilizer/knee strapping Specimen/Specimens Removed: synovium/cartilage/bone Estimated Blood Loss: EBL {In ML}: 5 Blood Products Given: N/A Drains Used: No Drains Post-Op Condition: Fair Date of Surgery/Procedure: 04/18/18 Time of Surgery/Procedure: 09:10 (time in mroom/anaesthesia indcution time 825)
--- NOTE | 2018-04-18 19:01 | OP ---
PROCEDURE DATE: 04/18/2018 PREOPERATIVE DIAGNOSIS: Rule out septic right knee. POSTOPERATIVE DIAGNOSES: 1. Septic right knee. 2. Tricompartmental synovitis. 3. Tear of medial meniscus and tear of lateral meniscus. OPERATIVE PROCEDURES: 1. Surgical arthroscopy, incision and drainage for sepsis. 2. Surgical arthroscopy, partial tricompartmental synovectomy. 3. Surgical arthroscopy, partial medial meniscectomy, partial lateral meniscectomy. 4. Intra-articular injection, application of Stanley Larry compression dressing and knee immobilizer. SURGEON: Juan Diego June MD [employer]ES: MIKA Buck, certified registered nursing first officer and flight instructor. ANESTHESIA: General endotracheal anesthesia. ANESTHESIOLOGIST: Juan C Dahl MD TIME OF INCISION: 09:10, time in the room anesthesia induction time 08:25. BLOOD LOSS: 5 mL. BLOOD PRODUCTS: No blood products given. DRAINS: No drains. POSTOPERATIVE CONDITION: Stable. OPERATIVE INDICATION: Nella Sheldon is a 47-year-old woman who presents to [facility] through the emergency room. I am called on consult. The patient is an employee of the [employer] [address] [email or web address]. The patient has significant pain and restricted range of motion for approximately one week. The patient had a prior visit to the [facility] Emergency Room. The knee was aspirated. The patient was released. The patient wanted to go ahead and stay in Orthopedics. The knee was again aspirated. The patient was released. The patient presented to the hospital on 04/16/2018 when the patient was evaluated and admitted. The patient was admitted, seemed stabilized and worked up by Dr. Alejo. Surgery was canceled on 04/17/2018 because of lack of medical clearance. The patient was taken to surgery as an emergency first thing in the morning on 04/18/2018. OPERATIVE PROCEDURE: After having obtained informed consent from the above captioned individual after having identified side, site and procedure and a critical pause/time-out after the satisfactory induction of the anesthetic, the patient identified as Nella Sheldon in the supine position with all bony prominences well padded. The right lower extremity was prepped and free draped in the usual fashion for lower extremity surgery. The tourniquet had been applied, but was not inflated. After having obtained informed consent, after thoroughly discussing the pros, cons, risks and benefits of the surgical approach, the possibility of mechanical failure, infection, thromboembolic disease, possibility of secondary or tertiary surgery was discussed. The patient can no longer withstand the discomfort. The concept of sepsis was discussed at length with the patient and her , Song Sheldon. After having obtained informed consent, after having identified side, site and procedure and a critical pause/time-out after the satisfactory induction of the anesthetic, the patient identified as Nella Sheldon in the supine position with all bony prominences well padded. The right lower extremity was prepped and free draped in the usual fashion for lower extremity surgery. The tourniquet had been employed, but not inflated. No inflation of the tourniquet was accomplished. Under sterile conditions from an anterolateral approach, the joint is insufflated with 10 mL of 1% lidocaine without epinephrine using #11 blade followed by spreading, followed by introduction of blunt trocar. With the arthroscope anterolaterally taking great care to provide gentle valgus stress, triangulation was accomplished using #18 gauge spinal needle followed by #11 blade followed by spreading, followed by introduction of the blunt trocar with the arthroscope anterolaterally. When the arthroscope was introduced, there was a tremendous egress of purulent fluid, approximately 60 mL of fluid was removed. A thorough irrigation begins. With the arthroscope anterolaterally with the surgeon exerting a gentle valgus stress, after thoroughly incising and draining the knee arthroscopically, a careful partial tricompartmental synovectomy was accomplished using the arthroscopic shaver. With the arthroscope anterolaterally, careful partial tricompartmental synovectomy is completed. Bleeding points are controlled with the arthroscopic wand. With the arthroscope anterolaterally with the surgeon exerting a gentle valgus stress, there was found to be a tear of the inner free edge of the medial meniscus. With the arthroscope anterolaterally using a combination of straight biting basket forceps and side biting basket forceps, a partial medial meniscectomy was accomplished. Using a combination of straight biting basket forceps and side biting basket forceps, a partial medial meniscectomy was accomplished. With the arthroscope anterolaterally, the inner free edge was smoothed using the arthroscopic wand. The anterior cruciate ligament was found to be intact with the arthroscope anterolaterally with the knee in [id number] position. There was found to be a tear of the inner free edge of the lateral meniscus. Using a combination again of the straight biting basket forceps and the side biting basket forceps, a partial lateral meniscectomy is accomplished. The inner free edge of the medial and lateral menisci were smoothed using the arthroscopic wand. Careful partial tricompartmental synovectomy was completed using the arthroscopic shaver and the ArthroCare wand. Bleeding points controlled with the ArthroCare wand. Partial tricompartmental synovectomy is completed. The wound was thoroughly irrigated. Portals were closed with interrupted Vicryl and nylon. Intra-articular injection was offered. Stanley Larry compression dressing and knee immobilizers applied. Juan Diego June MD
[2018-04-18] MEDS: Cefepime 1 GM in Sodium Chloride 0.9% 100 ML IVPB SCH (21:46)
[2018-04-19] MEDS: Lactated Ringer's 1,000 ML IV SCH ×3 (02:15→16:25)
[2018-04-19 06:18] LABS: MEAN CELL VOLUME 92.6 fl (81.0-99.0); MEAN CORPUSCULAR HEMOGLOBIN 31.1 pg (27.0-31.0); MEAN CORPUSCULAR HGB CONC 33.5 g/dL (33.0-37.0); RBC 3.54 Mil/uL (3.80-5.20); RED CELL DISTRIBUTION WIDTH 13.4 % (11.5-14.5); WHITE BLOOD COUNT 20.9 K/uL (4.8-10.8)
[2018-04-19 07:19] LABS: BLOOD UREA NITROGEN 8 mg/dl (7-17); CALCIUM 9.3 mg/dL (8.4-10.2); GFR NON-AFRICAN AMERICAN > 60
--- NOTE | 2018-04-19 07:40 | CP.PCM.PN ---
Subjective - Date & Time of Evaluation Date of Evaluation: 04/19/18 Time of Evaluation: 08:24 - Subjective Subjective: Patient states pain in knee is well controlled. Denies CP/SOB/dizziness/numbness/tingling/n/v. Objective - Vital Signs/Intake and Output Vital Signs (last 24 hours): Temp Pulse Resp BP Pulse Ox 97.7 F 75 19 116/73 97 04/19/18 04:00 04/19/18 04:00 04/19/18 04:00 04/19/18 04:00 04/19/18 04:00 Intake and Output: 04/19/18 04/19/18 06:59 18:59 Intake Total 1440 Balance 1440 - Medications Medications: Current Medications Acetaminophen (Tylenol 325mg Tab) 650 mg PO Q4 PRN PRN Reason: Fever 101 degrees fahrenheit Atorvastatin Calcium (Lipitor) 10 mg PO HS [facility] Last Admin: 04/18/18 21:45 Dose: 10 mg Docusate Sodium (Colace) 100 mg PO BID [facility] Last Admin: 04/17/18 17:04 Dose: 100 mg Famotidine (Pepcid) 20 mg PO Q12 [facility] Last Admin: 04/18/18 21:45 Dose: 20 mg Ferrous Sulfate (Feosol) 325 mg PO DAILY [facility] Last Admin: 04/18/18 09:00 Dose: Not Given Folic Acid (Folic Acid) 1 mg PO DAILY [facility] Last Admin: 04/18/18 09:00 Dose: Not Given Furosemide (Lasix) 20 mg PO DAILY [facility] Last Admin: 04/18/18 09:00 Dose: Not Given Vancomycin HCl 1 gm/ Sodium (Chloride) 250 mls @ 166.667 mls/hr IVPB Q12 [facility]; Protocol Last Admin: 04/18/18 23:05 Dose: 166.667 mls/hr Cefepime HCl 1 gm/ Sodium (Chloride) 100 mls @ 100 mls/hr IVPB Q12 [facility]; Protocol Last Admin: 04/18/18 21:46 Dose: 100 mls/hr Lactated Ringer's (Lactated Ringer's) 1,000 mls @ 100 mls/hr IV .Q10H [facility] Last Admin: 04/19/18 06:00 Dose: Not Given Lactated Ringer's (Lactated Ringer's) 1,000 mls @ 100 mls/hr IV .Q10H [facility] Last Admin: 04/18/18 20:30 Dose: Not Given Meclizine HCl (Antivert) 25 mg PO Q12 [facility] Last Admin: 04/18/18 21:45 Dose: 25 mg Morphine Sulfate (Morphine) 4 mg IVP Q3 PRN PRN Reason: Pain, severe (8-10) Last Admin: 04/18/18 21:47 Dose: 4 mg Oxycodone/Acetaminophen (Percocet 5/325 Mg Tab) 2 tab PO Q4 PRN PRN Reason: Pain, moderate (4-7) Stop: 04/21/18 10:24 Pregabalin (Lyrica) 75 mg PO Q8 [facility] Last Admin: 04/19/18 02:13 Dose: 75 mg - Labs Labs: 04/19/18 05:20 04/19/18 05:20 PT 14.8 Seconds (9.8-13.1) H 04/17/18 05:25 INR 1.3 04/17/18 05:25 - Extremities Exam Additional comments: RLE: +rom ankle/toes, sensation intact, toes warm, good cap refill +DP pulse knee immob and dressing intact Assessment and Plan (1) Septic arthritis of knee, right Assessment & Plan: POD#1 s/p I&D gram negative rods seen on one gram stain awaiting culture antibiotics per ID x 6 weeks for PICC line PT/OT VTE proph will monitor for increased swelling/need for repeat wash out d/w Dr. June, agrees with above Status: Acute
[2018-04-19] MEDS: Cefepime 1 GM in Sodium Chloride 0.9% 100 ML IVPB SCH ×2 (09:30→21:04)
[2018-04-19] MEDS ORDERED: Lidocaine 1% 5ml Abboject ONE (10:52)
--- NOTE | 2018-04-19 11:09 | PCM.SURG1 ---
Surgeon's Initial Post Op Note - Surgeon's Notes Surgeon: Omid Hoff MD Manager Asset: NONE Type of Anesthesia: Local Pre-Operative Diagnosis: Infection Operative Findings: US showed a patent right brachial vein. Post-Operative Diagnosis: Infection Operation Performed: Single lumen picc placement right arm, 35 cm. Tip is in the SVC. Specimen/Specimens Removed: NONE Estimated Blood Loss: EBL {In ML}: 2 Blood Products Given: N/A Drains Used: No Drains Post-Op Condition: Fair Date of Surgery/Procedure: 04/19/18 Time of Surgery/Procedure: 11:05
--- NOTE | 2018-04-19 11:54 | CP.PCM.PN ---
Subjective - Date & Time of Evaluation Date of Evaluation: 04/18/18 Time of Evaluation: 18:00 - Subjective Subjective: No complaints, no hemostasis issues postop Objective - Vital Signs/Intake and Output Vital Signs (last 24 hours): Temp Pulse Resp BP Pulse Ox 97.0 F L 71 16 116/72 99 04/19/18 11:00 04/19/18 11:00 04/19/18 11:00 04/19/18 11:00 04/19/18 11:00 Intake and Output: 04/19/18 04/19/18 06:59 18:59 Intake Total 1440 Balance 1440 - Medications Medications: Current Medications Acetaminophen (Tylenol 325mg Tab) 650 mg PO Q4 PRN PRN Reason: Fever 101 degrees fahrenheit Atorvastatin Calcium (Lipitor) 10 mg PO HS [facility] Last Admin: 04/18/18 21:45 Dose: 10 mg Docusate Sodium (Colace) 100 mg PO BID [facility] Last Admin: 04/19/18 09:37 Dose: 100 mg Famotidine (Pepcid) 20 mg PO Q12 [facility] Last Admin: 04/19/18 09:45 Dose: 20 mg Ferrous Sulfate (Feosol) 325 mg PO DAILY [facility] Last Admin: 04/19/18 09:38 Dose: 325 mg Folic Acid (Folic Acid) 1 mg PO DAILY [facility] Last Admin: 04/19/18 09:44 Dose: 1 mg Furosemide (Lasix) 20 mg PO DAILY [facility] Last Admin: 04/19/18 09:39 Dose: 20 mg Vancomycin HCl 1 gm/ Sodium (Chloride) 250 mls @ 166.667 mls/hr IVPB Q12 [facility]; Protocol Last Admin: 04/19/18 11:33 Dose: 166.667 mls/hr Cefepime HCl 1 gm/ Sodium (Chloride) 100 mls @ 100 mls/hr IVPB Q12 [facility]; Protocol Last Admin: 04/19/18 09:30 Dose: 100 mls/hr Lactated Ringer's (Lactated Ringer's) 1,000 mls @ 100 mls/hr IV .Q10H [facility] Last Admin: 04/19/18 06:00 Dose: Not Given Lactated Ringer's (Lactated Ringer's) 1,000 mls @ 100 mls/hr IV .Q10H [facility] Last Admin: 04/18/18 20:30 Dose: Not Given Meclizine HCl (Antivert) 25 mg PO Q12 [facility] Last Admin: 04/19/18 09:38 Dose: 25 mg Morphine Sulfate (Morphine) 4 mg IVP Q3 PRN PRN Reason: Pain, severe (8-10) Last Admin: 04/18/18 21:47 Dose: 4 mg Oxycodone/Acetaminophen (Percocet 5/325 Mg Tab) 2 tab PO Q4 PRN PRN Reason: Pain, moderate (4-7) Stop: 04/21/18 10:24 Pregabalin (Lyrica) 75 mg PO Q8 [facility] Last Admin: 04/19/18 09:46 Dose: 75 mg - Labs Labs: 04/19/18 05:20 04/19/18 05:20 PT 14.8 Seconds (9.8-13.1) H 04/17/18 05:25 INR 1.3 04/17/18 05:25 - Head Exam Head Exam: ATRAUMATIC - Eye Exam Eye Exam: Normal appearance - ENT Exam ENT Exam: Mucous Membranes Dry - Respiratory Exam Respiratory Exam: NORMAL BREATHING PATTERN - Cardiovascular Exam Cardiovascular Exam: REGULAR RHYTHM, +S1, +S2 - GI/Abdominal Exam GI & Abdominal Exam: Normal Bowel Sounds Assessment and Plan (1) MTHFR mutation Assessment & Plan: - with CVA and arterial clotting - plavix to be restart 24 hours post op; therapeutic lovenox while in hospital as may require further surgical intervention - folic acid daily - outpatient Pradaxa Status: Chronic (2) Leukocytosis Assessment & Plan: on antibiotics s/p orthopedic washout Status: Acute (3) Anemia Assessment & Plan: history of iron deficiency anemia of chronic disease Status: Chronic
--- NOTE | 2018-04-19 11:57 | CP.PCM.PN ---
Subjective - Date & Time of Evaluation Date of Evaluation: 04/19/18 Time of Evaluation: 11:00 - Subjective Subjective: Has some knee pain. Objective - Vital Signs/Intake and Output Vital Signs (last 24 hours): Temp Pulse Resp BP Pulse Ox 97.0 F L 71 16 116/72 99 04/19/18 11:00 04/19/18 11:00 04/19/18 11:00 04/19/18 11:00 04/19/18 11:00 Intake and Output: 04/19/18 04/19/18 06:59 18:59 Intake Total 1440 Balance 1440 - Medications Medications: Current Medications Acetaminophen (Tylenol 325mg Tab) 650 mg PO Q4 PRN PRN Reason: Fever 101 degrees fahrenheit Atorvastatin Calcium (Lipitor) 10 mg PO HS [facility] Last Admin: 04/18/18 21:45 Dose: 10 mg Clopidogrel Bisulfate (Plavix) 75 mg PO DAILY [facility] Docusate Sodium (Colace) 100 mg PO BID [facility] Last Admin: 04/19/18 09:37 Dose: 100 mg Enoxaparin Sodium (Lovenox) 80 mg SC Q12 [facility]; Protocol Famotidine (Pepcid) 20 mg PO Q12 [facility] Last Admin: 04/19/18 09:45 Dose: 20 mg Ferrous Sulfate (Feosol) 325 mg PO DAILY [facility] Last Admin: 04/19/18 09:38 Dose: 325 mg Folic Acid (Folic Acid) 1 mg PO DAILY [facility] Last Admin: 04/19/18 09:44 Dose: 1 mg Furosemide (Lasix) 20 mg PO DAILY [facility] Last Admin: 04/19/18 09:39 Dose: 20 mg Vancomycin HCl 1 gm/ Sodium (Chloride) 250 mls @ 166.667 mls/hr IVPB Q12 [facility]; Protocol Last Admin: 04/19/18 11:33 Dose: 166.667 mls/hr Cefepime HCl 1 gm/ Sodium (Chloride) 100 mls @ 100 mls/hr IVPB Q12 [facility]; Protocol Last Admin: 04/19/18 09:30 Dose: 100 mls/hr Lactated Ringer's (Lactated Ringer's) 1,000 mls @ 100 mls/hr IV .Q10H [facility] Last Admin: 04/19/18 06:00 Dose: Not Given Lactated Ringer's (Lactated Ringer's) 1,000 mls @ 100 mls/hr IV .Q10H [facility] Last Admin: 04/18/18 20:30 Dose: Not Given Meclizine HCl (Antivert) 25 mg PO Q12 [facility] Last Admin: 04/19/18 09:38 Dose: 25 mg Morphine Sulfate (Morphine) 4 mg IVP Q3 PRN PRN Reason: Pain, severe (8-10) Last Admin: 04/18/18 21:47 Dose: 4 mg Oxycodone/Acetaminophen (Percocet 5/325 Mg Tab) 2 tab PO Q4 PRN PRN Reason: Pain, moderate (4-7) Stop: 04/21/18 10:24 Pregabalin (Lyrica) 75 mg PO Q8 [facility] Last Admin: 04/19/18 09:46 Dose: 75 mg - Labs Labs: 04/19/18 05:20 04/19/18 05:20 PT 14.8 Seconds (9.8-13.1) H 04/17/18 05:25 INR 1.3 04/17/18 05:25 - Head Exam Head Exam: ATRAUMATIC - Eye Exam Eye Exam: Normal appearance - ENT Exam ENT Exam: Mucous Membranes Dry - Respiratory Exam Respiratory Exam: NORMAL BREATHING PATTERN - Cardiovascular Exam Cardiovascular Exam: +S1, +S2 - GI/Abdominal Exam GI & Abdominal Exam: Normal Bowel Sounds Assessment and Plan (1) MTHFR mutation Assessment & Plan: with CVA and arterial clotting plavix to be restart 24 hours post op; therapeutic lovenox while in hospital as may require further surgical intervention folic acid daily outpatient Pradaxa Status: Chronic (2) Leukocytosis Assessment & Plan: on antibiotics s/p orthopedic washout Status: Acute (3) Anemia Assessment & Plan: history of iron deficiency anemia of chronic disease Status: Chronic
[2018-04-19] MEDS: Enoxaparin 80 mg Syringe SC SCH ×2 (16:12→21:06)
[2018-04-19] MEDS ORDERED: Enoxaparin 80 mg Syringe SC SCH (17:00)
--- NOTE | 2018-04-19 17:02 | CP.PCM.PN ---
Subjective - Date & Time of Evaluation Date of Evaluation: 04/19/18 Time of Evaluation: 16:40 - Subjective Subjective: F/U S/P Arthroscopic R knee. Minimal pain in R knee, had Morphine previously, walking in the turner with PT and walker. Objective - Vital Signs/Intake and Output Vital Signs (last 24 hours): Temp Pulse Resp BP Pulse Ox 97.5 F L 83 18 95/56 L 94 L 04/19/18 15:52 04/19/18 15:52 04/19/18 15:52 04/19/18 15:52 04/19/18 15:52 Intake and Output: 04/19/18 04/19/18 06:59 18:59 Intake Total 1440 Balance 1440 - Medications Medications: Current Medications Acetaminophen (Tylenol 325mg Tab) 650 mg PO Q4 PRN PRN Reason: Fever 101 degrees fahrenheit Atorvastatin Calcium (Lipitor) 10 mg PO HS [facility] Last Admin: 04/18/18 21:45 Dose: 10 mg Clopidogrel Bisulfate (Plavix) 75 mg PO DAILY [facility] Last Admin: 04/19/18 16:11 Dose: 75 mg Docusate Sodium (Colace) 100 mg PO BID [facility] Last Admin: 04/19/18 16:16 Dose: 100 mg Enoxaparin Sodium (Lovenox) 70 mg SC Q12 [facility]; Protocol Last Admin: 04/19/18 16:12 Dose: 70 mg Famotidine (Pepcid) 20 mg PO Q12 [facility] Last Admin: 04/19/18 09:45 Dose: 20 mg Ferrous Sulfate (Feosol) 325 mg PO DAILY [facility] Last Admin: 04/19/18 09:38 Dose: 325 mg Folic Acid (Folic Acid) 1 mg PO DAILY [facility] Last Admin: 04/19/18 09:44 Dose: 1 mg Furosemide (Lasix) 20 mg PO DAILY [facility] Last Admin: 04/19/18 09:39 Dose: 20 mg Vancomycin HCl 1 gm/ Sodium (Chloride) 250 mls @ 166.667 mls/hr IVPB Q12 [facility]; Protocol Last Admin: 04/19/18 11:33 Dose: 166.667 mls/hr Cefepime HCl 1 gm/ Sodium (Chloride) 100 mls @ 100 mls/hr IVPB Q12 [facility]; Protocol Last Admin: 04/19/18 09:30 Dose: 100 mls/hr Lactated Ringer's (Lactated Ringer's) 1,000 mls @ 100 mls/hr IV .Q10H [facility] Last Admin: 04/19/18 16:25 Dose: 100 mls/hr Lactated Ringer's (Lactated Ringer's) 1,000 mls @ 100 mls/hr IV .Q10H [facility] Last Admin: 04/18/18 20:30 Dose: Not Given Meclizine HCl (Antivert) 25 mg PO Q12 [facility] Last Admin: 04/19/18 09:38 Dose: 25 mg Morphine Sulfate (Morphine) 4 mg IVP Q3 PRN PRN Reason: Pain, severe (8-10) Last Admin: 04/18/18 21:47 Dose: 4 mg Oxycodone/Acetaminophen (Percocet 5/325 Mg Tab) 2 tab PO Q4 PRN PRN Reason: Pain, moderate (4-7) Stop: 04/21/18 10:24 Pregabalin (Lyrica) 75 mg PO Q8 [facility] Last Admin: 04/19/18 16:12 Dose: 75 mg - Labs Labs: 04/19/18 05:20 04/19/18 05:20 PT 14.8 Seconds (9.8-13.1) H 04/17/18 05:25 INR 1.3 04/17/18 05:25 - Constitutional Appears: No Acute Distress - Head Exam Head Exam: NORMAL INSPECTION - Eye Exam Eye Exam: PERRL - ENT Exam ENT Exam: Normal Exam - Neck Exam Neck Exam: Normal Inspection - Respiratory Exam Respiratory Exam: Clear to Ausculation Bilateral - Cardiovascular Exam Cardiovascular Exam: REGULAR RHYTHM - GI/Abdominal Exam GI & Abdominal Exam: Soft, Normal Bowel Sounds - Extremities Exam Additional comments: R knee immobilized - Back Exam Back Exam: NORMAL INSPECTION - Neurological Exam Neurological Exam: Alert, CN II-XII Intact, Oriented x3 Additional comments: E weakness with numbness - Psychiatric Exam Psychiatric exam: Anxious - Skin Skin Exam: Warm Assessment and Plan (1) S/P arthroscopic surgery of right knee Status: Acute (2) Effusion of right knee Status: Acute (3) History of CVA (cerebrovascular accident) Status: Chronic (4) Left subclavian vein thrombosis Status: Acute (5) MTHFR mutation Status: Chronic - Assessment and Plan (Free Text) Plan: R knee wound C-S: + Gram positive cocci. Orthopedic configuration consultant will perform another Arthroscopy. Continue Lovenox, Plavix, Cefepime, Vanco and rest of tx.
[2018-04-20] MEDS: Lactated Ringer's 1,000 ML IV SCH ×5 (02:00→22:02)
[2018-04-20] MEDS: Enoxaparin 80 mg Syringe SC SCH ×2 (08:54→21:03)
[2018-04-20] MEDS: Cefepime 1 GM in Sodium Chloride 0.9% 100 ML IVPB SCH ×2 (08:59→20:45)
[2018-04-20 09:46] LABS: HEMOGLOBIN 10.4 g/dL (12.0-16.0); MEAN CELL VOLUME 93.4 fl (81.0-99.0); MEAN CORPUSCULAR HEMOGLOBIN 31.1 pg (27.0-31.0); MEAN CORPUSCULAR HGB CONC 33.3 g/dL (33.0-37.0); RBC 3.34 Mil/uL (3.80-5.20); RED CELL DISTRIBUTION WIDTH 13.4 % (11.5-14.5)
[2018-04-20 10:04] LABS: BLOOD UREA NITROGEN 10 mg/dl (7-17); CALCIUM 8.6 mg/dL (8.4-10.2); GFR NON-AFRICAN AMERICAN > 60
--- NOTE | 2018-04-20 11:49 | CP.PCM.PN ---
Subjective - Date & Time of Evaluation Date of Evaluation: 04/20/18 Time of Evaluation: 11:25 - Subjective Subjective: S- pt improved, but with perisistent R lower extremity discomfort Objective - Vital Signs/Intake and Output Vital Signs (last 24 hours): Temp Pulse Resp BP Pulse Ox 98.3 F 79 20 117/75 95 04/20/18 08:22 04/20/18 08:22 04/20/18 08:22 04/20/18 08:54 04/20/18 08:22 Intake and Output: 04/20/18 04/20/18 06:59 18:59 Intake Total 1440 Balance 1440 - Medications Medications: Current Medications Acetaminophen (Tylenol 325mg Tab) 650 mg PO Q4 PRN PRN Reason: Fever 101 degrees fahrenheit Atorvastatin Calcium (Lipitor) 10 mg PO HS [facility] Last Admin: 04/19/18 21:12 Dose: 10 mg Clopidogrel Bisulfate (Plavix) 75 mg PO DAILY [facility] Last Admin: 04/20/18 09:00 Dose: 75 mg Docusate Sodium (Colace) 100 mg PO BID [facility] Last Admin: 04/20/18 08:52 Dose: 100 mg Enoxaparin Sodium (Lovenox) 70 mg SC Q12 [facility]; Protocol Last Admin: 04/20/18 08:54 Dose: 70 mg Famotidine (Pepcid) 20 mg PO Q12 [facility] Last Admin: 04/20/18 09:00 Dose: 20 mg Ferrous Sulfate (Feosol) 325 mg PO DAILY [facility] Last Admin: 04/20/18 08:53 Dose: 325 mg Folic Acid (Folic Acid) 1 mg PO DAILY [facility] Last Admin: 04/20/18 08:53 Dose: 1 mg Furosemide (Lasix) 20 mg PO DAILY [facility] Last Admin: 04/20/18 08:54 Dose: 20 mg Vancomycin HCl 1 gm/ Sodium (Chloride) 250 mls @ 166.667 mls/hr IVPB Q12 [facility]; Protocol Last Admin: 04/20/18 09:01 Dose: 166.667 mls/hr Cefepime HCl 1 gm/ Sodium (Chloride) 100 mls @ 100 mls/hr IVPB Q12 [facility]; Protocol Last Admin: 04/20/18 08:59 Dose: 100 mls/hr Lactated Ringer's (Lactated Ringer's) 1,000 mls @ 100 mls/hr IV .Q10H [facility] Last Admin: 04/20/18 04:56 Dose: 100 mls/hr Lactated Ringer's (Lactated Ringer's) 1,000 mls @ 100 mls/hr IV .Q10H [facility] Last Admin: 04/18/18 20:30 Dose: Not Given Meclizine HCl (Antivert) 25 mg PO Q12 [facility] Last Admin: 04/20/18 08:51 Dose: 25 mg Morphine Sulfate (Morphine) 4 mg IVP Q3 PRN PRN Reason: Pain, severe (8-10) Last Admin: 04/19/18 21:32 Dose: 4 mg Oxycodone/Acetaminophen (Percocet 5/325 Mg Tab) 2 tab PO Q4 PRN PRN Reason: Pain, moderate (4-7) Stop: 04/21/18 10:24 Pregabalin (Lyrica) 75 mg PO Q8 [facility] Last Admin: 04/20/18 08:56 Dose: 75 mg - Labs Labs: 04/20/18 09:39 04/20/18 09:39 PT 14.8 Seconds (9.8-13.1) H 04/17/18 05:25 INR 1.3 04/17/18 05:25 - Additional Findings Additional findings: Physical exam systemic: as per Dr Alejo no evidence for systemic sepsis Musculoskekltal swelling persist- overall much improved however N/V intact no gross deficits orthopedically stable Assessment and Plan - Assessment and Plan (Free Text) Assessment: A- s/p septic knee after multiple aspirations in ER and in private MD joyce P- top OR for secondary arthroscopic incision drainage Sunday or possibly Sunday
--- NOTE | 2018-04-20 14:47 | CP.PCM.PN ---
Subjective - Date & Time of Evaluation Date of Evaluation: 04/20/18 Time of Evaluation: 16:20 - Subjective Subjective: pain R knee Objective - Vital Signs/Intake and Output Vital Signs (last 24 hours): Temp Pulse Resp BP Pulse Ox 98.3 F 79 20 117/75 95 04/20/18 08:22 04/20/18 08:22 04/20/18 08:22 04/20/18 08:54 04/20/18 08:22 Intake and Output: 04/20/18 04/20/18 06:59 18:59 Intake Total 1440 Balance 1440 - Medications Medications: Current Medications Acetaminophen (Tylenol 325mg Tab) 650 mg PO Q4 PRN PRN Reason: Fever 101 degrees fahrenheit Atorvastatin Calcium (Lipitor) 10 mg PO HS [facility] Last Admin: 04/19/18 21:12 Dose: 10 mg Clopidogrel Bisulfate (Plavix) 75 mg PO DAILY [facility] Last Admin: 04/20/18 09:00 Dose: 75 mg Docusate Sodium (Colace) 100 mg PO BID [facility] Last Admin: 04/20/18 08:52 Dose: 100 mg Enoxaparin Sodium (Lovenox) 70 mg SC Q12 [facility]; Protocol Last Admin: 04/20/18 08:54 Dose: 70 mg Famotidine (Pepcid) 20 mg PO Q12 [facility] Last Admin: 04/20/18 09:00 Dose: 20 mg Ferrous Sulfate (Feosol) 325 mg PO DAILY [facility] Last Admin: 04/20/18 08:53 Dose: 325 mg Folic Acid (Folic Acid) 1 mg PO DAILY [facility] Last Admin: 04/20/18 08:53 Dose: 1 mg Furosemide (Lasix) 20 mg PO DAILY [facility] Last Admin: 04/20/18 08:54 Dose: 20 mg Vancomycin HCl 1 gm/ Sodium (Chloride) 250 mls @ 166.667 mls/hr IVPB Q12 [facility]; Protocol Last Admin: 04/20/18 09:01 Dose: 166.667 mls/hr Cefepime HCl 1 gm/ Sodium (Chloride) 100 mls @ 100 mls/hr IVPB Q12 [facility]; Protocol Last Admin: 04/20/18 08:59 Dose: 100 mls/hr Lactated Ringer's (Lactated Ringer's) 1,000 mls @ 100 mls/hr IV .Q10H [facility] Last Admin: 10/06/18 13:58 Dose: Not Given Meclizine HCl (Antivert) 25 mg PO Q12 [facility] Last Admin: 04/20/18 08:51 Dose: 25 mg Morphine Sulfate (Morphine) 4 mg IVP Q3 PRN PRN Reason: Pain, severe (8-10) Last Admin: 04/20/18 13:15 Dose: 4 mg Oxycodone/Acetaminophen (Percocet 5/325 Mg Tab) 2 tab PO Q4 PRN PRN Reason: Pain, moderate (4-7) Stop: 04/21/18 10:24 Pregabalin (Lyrica) 75 mg PO Q8 [facility] Last Admin: 04/20/18 08:56 Dose: 75 mg - Labs Labs: 04/20/18 09:39 04/20/18 09:39 PT 14.8 Seconds (9.8-13.1) H 04/17/18 05:25 INR 1.3 04/17/18 05:25 - Constitutional Appears: No Acute Distress - Head Exam Head Exam: NORMAL INSPECTION - Eye Exam Eye Exam: PERRL - ENT Exam ENT Exam: Normal Exam - Neck Exam Neck Exam: Full ROM - Respiratory Exam Respiratory Exam: NORMAL BREATHING PATTERN - Cardiovascular Exam Cardiovascular Exam: REGULAR RHYTHM - GI/Abdominal Exam GI & Abdominal Exam: Soft, Normal Bowel Sounds - Extremities Exam Additional comments: RLE immobilizer - Back Exam Back Exam: NORMAL INSPECTION - Neurological Exam Neurological Exam: Alert, Oriented x3 Additional comments: LUE weakness with numbness - Psychiatric Exam Psychiatric exam: Anxious - Skin Skin Exam: Warm Assessment and Plan (1) Septic arthritis of knee, right Assessment & Plan: Staph Status: Acute (2) S/P arthroscopic surgery of right knee Status: Acute (3) Effusion of right knee Status: Acute (4) History of CVA (cerebrovascular accident) Status: Chronic (5) Left subclavian vein thrombosis Assessment & Plan: continue Vanco, Morphine, Plavix, Lovenox, for Arthroscopy on Sunday Status: Acute (6) MTHFR mutation Status: Chronic - Assessment and Plan (Free Text) Plan: continue Morphine, Lovenox, Plavix and rest of Tx, for repeat R Knee arthroscopy on Sunday
--- NOTE | 2018-04-20 15:00 | CP.PCM.PN ---
Subjective - Date & Time of Evaluation Date of Evaluation: 04/20/18 Time of Evaluation: 14:47 - Subjective Subjective: I D NOTE CULTURES ALL [employer] AUREUS HAVE DISCUSSED c HOSPITALIST WILL CONTINUE VANCOMYCIN FOR 6 WEEKS Objective - Vital Signs/Intake and Output Vital Signs (last 24 hours): Temp Pulse Resp BP Pulse Ox 98.3 F 79 20 117/75 95 04/20/18 08:22 04/20/18 08:22 04/20/18 08:22 04/20/18 08:54 04/20/18 08:22 Intake and Output: 04/20/18 04/20/18 06:59 18:59 Intake Total 1440 Balance 1440 - Medications Medications: Current Medications Acetaminophen (Tylenol 325mg Tab) 650 mg PO Q4 PRN PRN Reason: Fever 101 degrees fahrenheit Atorvastatin Calcium (Lipitor) 10 mg PO HS [facility] Last Admin: 04/19/18 21:12 Dose: 10 mg Clopidogrel Bisulfate (Plavix) 75 mg PO DAILY [facility] Last Admin: 04/20/18 09:00 Dose: 75 mg Docusate Sodium (Colace) 100 mg PO BID [facility] Last Admin: 04/20/18 08:52 Dose: 100 mg Enoxaparin Sodium (Lovenox) 70 mg SC Q12 [facility]; Protocol Last Admin: 04/20/18 08:54 Dose: 70 mg Famotidine (Pepcid) 20 mg PO Q12 [facility] Last Admin: 04/20/18 09:00 Dose: 20 mg Ferrous Sulfate (Feosol) 325 mg PO DAILY [facility] Last Admin: 04/20/18 08:53 Dose: 325 mg Folic Acid (Folic Acid) 1 mg PO DAILY [facility] Last Admin: 04/20/18 08:53 Dose: 1 mg Furosemide (Lasix) 20 mg PO DAILY [facility] Last Admin: 04/20/18 08:54 Dose: 20 mg Vancomycin HCl 1 gm/ Sodium (Chloride) 250 mls @ 166.667 mls/hr IVPB Q12 [facility]; Protocol Last Admin: 04/20/18 09:01 Dose: 166.667 mls/hr Cefepime HCl 1 gm/ Sodium (Chloride) 100 mls @ 100 mls/hr IVPB Q12 [facility]; Protocol Last Admin: 04/20/18 08:59 Dose: 100 mls/hr Lactated Ringer's (Lactated Ringer's) 1,000 mls @ 100 mls/hr IV .Q10H [facility] Last Admin: 04/20/18 13:58 Dose: Not Given Meclizine HCl (Antivert) 25 mg PO Q12 [facility] Last Admin: 04/20/18 08:51 Dose: 25 mg Morphine Sulfate (Morphine) 4 mg IVP Q3 PRN PRN Reason: Pain, severe (8-10) Last Admin: 04/20/18 13:15 Dose: 4 mg Oxycodone/Acetaminophen (Percocet 5/325 Mg Tab) 2 tab PO Q4 PRN PRN Reason: Pain, moderate (4-7) Stop: 04/21/18 10:24 Pregabalin (Lyrica) 75 mg PO Q8 [facility] Last Admin: 04/20/18 08:56 Dose: 75 mg - Labs Labs: 04/20/18 09:39 04/20/18 09:39 PT 14.8 Seconds (9.8-13.1) H 04/17/18 05:25 INR 1.3 04/17/18 05:25
[2018-04-21] MEDS: Enoxaparin 80 mg Syringe SC SCH (08:29)
[2018-04-21] MEDS: Cefepime 1 GM in Sodium Chloride 0.9% 100 ML IVPB SCH ×2 (08:30→20:57)
[2018-04-21] MEDS: Lactated Ringer's 1,000 ML IV SCH ×3 (09:51→22:26)
--- NOTE | 2018-04-21 22:27 | CP.PCM.PN ---
Subjective - Date & Time of Evaluation Date of Evaluation: 04/21/18 Time of Evaluation: 16:20 - Subjective Subjective: Pain R knee, requesting Morphine Objective - Vital Signs/Intake and Output Vital Signs (last 24 hours): Temp Pulse Resp BP Pulse Ox 98.7 F 93 H 20 122/76 95 04/21/18 18:02 04/21/18 16:04 04/21/18 16:04 04/21/18 16:04 04/21/18 16:04 - Medications Medications: Current Medications Acetaminophen (Tylenol 325mg Tab) 650 mg PO Q4 PRN PRN Reason: Fever 101 degrees fahrenheit Atorvastatin Calcium (Lipitor) 10 mg PO HS [facility] Last Admin: 04/21/18 21:04 Dose: 10 mg Clopidogrel Bisulfate (Plavix) 75 mg PO DAILY [facility] Last Admin: 04/20/18 09:00 Dose: 75 mg Docusate Sodium (Colace) 100 mg PO BID [facility] Last Admin: 04/21/18 16:06 Dose: 100 mg Enoxaparin Sodium (Lovenox) 70 mg SC Q12 [facility]; Protocol Last Admin: 04/21/18 08:29 Dose: 70 mg Famotidine (Pepcid) 20 mg PO Q12 [facility] Last Admin: 04/21/18 20:57 Dose: 20 mg Ferrous Sulfate (Feosol) 325 mg PO DAILY [facility] Last Admin: 04/21/18 08:28 Dose: 325 mg Folic Acid (Folic Acid) 1 mg PO DAILY [facility] Last Admin: 04/21/18 08:28 Dose: 1 mg Furosemide (Lasix) 20 mg PO DAILY [facility] Last Admin: 04/21/18 08:28 Dose: 20 mg Cefepime HCl 1 gm/ Sodium (Chloride) 100 mls @ 100 mls/hr IVPB Q12 [facility]; Protocol Last Admin: 04/21/18 20:57 Dose: 100 mls/hr Lactated Ringer's (Lactated Ringer's) 1,000 mls @ 100 mls/hr IV .Q10H [facility] Last Admin: 04/21/18 22:26 Dose: 100 mls/hr Vancomycin HCl 750 mg/ Sodium (Chloride) 250 mls @ 166.667 mls/hr IVPB Q12 [facility]; Protocol Last Admin: 04/21/18 22:22 Dose: 166.667 mls/hr Meclizine HCl (Antivert) 25 mg PO Q12 [facility] Last Admin: 04/21/18 20:57 Dose: 25 mg Morphine Sulfate (Morphine) 4 mg IVP Q3 PRN PRN Reason: Pain, severe (8-10) Last Admin: 04/21/18 16:07 Dose: 4 mg Pregabalin (Lyrica) 75 mg PO Q8 [facility] Last Admin: 04/21/18 16:07 Dose: 75 mg - Labs Labs: 04/20/18 09:39 04/20/18 09:39 PT 14.8 Seconds (9.8-13.1) H 04/17/18 05:25 INR 1.3 04/17/18 05:25 - Constitutional Appears: No Acute Distress - Head Exam Head Exam: NORMAL INSPECTION - Eye Exam Eye Exam: PERRL - ENT Exam ENT Exam: Normal Exam - Neck Exam Neck Exam: Normal Inspection - Respiratory Exam Respiratory Exam: NORMAL BREATHING PATTERN - Cardiovascular Exam Cardiovascular Exam: REGULAR RHYTHM - GI/Abdominal Exam GI & Abdominal Exam: Soft, Normal Bowel Sounds - Extremities Exam Additional comments: RLE immobilizer - Back Exam Back Exam: NORMAL INSPECTION - Neurological Exam Neurological Exam: Alert, CN II-XII Intact, Oriented x3 Additional comments: LUE weakness with numbness - Psychiatric Exam Psychiatric exam: Anxious - Skin Skin Exam: Warm Assessment and Plan (1) Septic arthritis of knee, right Assessment & Plan: Staph Status: Acute (2) S/P arthroscopic surgery of right knee Status: Acute (3) Effusion of right knee Status: Acute (4) History of CVA (cerebrovascular accident) Status: Chronic (5) Left subclavian vein thrombosis Status: Acute (6) MTHFR mutation Status: Chronic - Assessment and Plan (Free Text) Plan: CBC , CMP reviewed, Plavix, Lovenox on hold, medically cleared for Arthroscopy am
--- NOTE | 2018-04-21 22:30 | CP.PCM.PN ---
Subjective - Date & Time of Evaluation Date of Evaluation: 04/20/18 Time of Evaluation: 17:00 - Subjective Subjective: Feeling better for OR Sunday hold Plavix today and hold lovenox after AM dosing tomorrow Objective - Vital Signs/Intake and Output Vital Signs (last 24 hours): Temp Pulse Resp BP Pulse Ox 98.7 F 93 H 20 122/76 95 04/21/18 18:02 04/21/18 16:04 04/21/18 16:04 04/21/18 16:04 04/21/18 16:04 - Medications Medications: Current Medications Acetaminophen (Tylenol 325mg Tab) 650 mg PO Q4 PRN PRN Reason: Fever 101 degrees fahrenheit Atorvastatin Calcium (Lipitor) 10 mg PO HS [facility] Last Admin: 04/21/18 21:04 Dose: 10 mg Clopidogrel Bisulfate (Plavix) 75 mg PO DAILY [facility] Last Admin: 04/20/18 09:00 Dose: 75 mg Docusate Sodium (Colace) 100 mg PO BID [facility] Last Admin: 04/21/18 16:06 Dose: 100 mg Enoxaparin Sodium (Lovenox) 70 mg SC Q12 [facility]; Protocol Last Admin: 04/21/18 08:29 Dose: 70 mg Famotidine (Pepcid) 20 mg PO Q12 [facility] Last Admin: 04/21/18 20:57 Dose: 20 mg Ferrous Sulfate (Feosol) 325 mg PO DAILY [facility] Last Admin: 04/21/18 08:28 Dose: 325 mg Folic Acid (Folic Acid) 1 mg PO DAILY [facility] Last Admin: 04/21/18 08:28 Dose: 1 mg Furosemide (Lasix) 20 mg PO DAILY [facility] Last Admin: 04/21/18 08:28 Dose: 20 mg Cefepime HCl 1 gm/ Sodium (Chloride) 100 mls @ 100 mls/hr IVPB Q12 [facility]; Protocol Last Admin: 04/21/18 20:57 Dose: 100 mls/hr Lactated Ringer's (Lactated Ringer's) 1,000 mls @ 100 mls/hr IV .Q10H [facility] Last Admin: 04/21/18 22:26 Dose: 100 mls/hr Vancomycin HCl 750 mg/ Sodium (Chloride) 250 mls @ 166.667 mls/hr IVPB Q12 [facility]; Protocol Last Admin: 04/21/18 22:22 Dose: 166.667 mls/hr Meclizine HCl (Antivert) 25 mg PO Q12 [facility] Last Admin: 04/21/18 20:57 Dose: 25 mg Morphine Sulfate (Morphine) 4 mg IVP Q3 PRN PRN Reason: Pain, severe (8-10) Last Admin: 04/21/18 16:07 Dose: 4 mg Pregabalin (Lyrica) 75 mg PO Q8 [facility] Last Admin: 04/21/18 16:07 Dose: 75 mg - Labs Labs: 04/20/18 09:39 04/20/18 09:39 PT 14.8 Seconds (9.8-13.1) H 04/17/18 05:25 INR 1.3 04/17/18 05:25 - Head Exam Head Exam: ATRAUMATIC - Eye Exam Eye Exam: Normal appearance - ENT Exam ENT Exam: Mucous Membranes Dry - Respiratory Exam Respiratory Exam: NORMAL BREATHING PATTERN - Cardiovascular Exam Cardiovascular Exam: +S1, +S2 - GI/Abdominal Exam GI & Abdominal Exam: Normal Bowel Sounds Assessment and Plan (1) MTHFR mutation Assessment & Plan: with CVA and arterial clotting plavix to be restart 24 hours post op; therapeutic lovenox while in hospital as may require further surgical intervention folic acid daily outpatient Pradaxa Status: Chronic (2) Leukocytosis Assessment & Plan: on antibiotics s/p orthopedic washout Status: Acute (3) Anemia Assessment & Plan: history of iron deficiency anemia of chronic disease Status: Chronic
--- NOTE | 2018-04-21 22:31 | CP.PCM.PN ---
Subjective - Date & Time of Evaluation Date of Evaluation: 04/21/18 Time of Evaluation: 14:00 - Subjective Subjective: For OR tomorrow Plavix held Lovenox held after AM dosing today Objective - Vital Signs/Intake and Output Vital Signs (last 24 hours): Temp Pulse Resp BP Pulse Ox 98.7 F 93 H 20 122/76 95 04/21/18 18:02 04/21/18 16:04 04/21/18 16:04 04/21/18 16:04 04/21/18 16:04 - Medications Medications: Current Medications Acetaminophen (Tylenol 325mg Tab) 650 mg PO Q4 PRN PRN Reason: Fever 101 degrees fahrenheit Atorvastatin Calcium (Lipitor) 10 mg PO HS [facility] Last Admin: 04/21/18 21:04 Dose: 10 mg Clopidogrel Bisulfate (Plavix) 75 mg PO DAILY [facility] Last Admin: 04/20/18 09:00 Dose: 75 mg Docusate Sodium (Colace) 100 mg PO BID [facility] Last Admin: 04/21/18 16:06 Dose: 100 mg Enoxaparin Sodium (Lovenox) 70 mg SC Q12 [facility]; Protocol Last Admin: 04/21/18 08:29 Dose: 70 mg Famotidine (Pepcid) 20 mg PO Q12 [facility] Last Admin: 04/21/18 20:57 Dose: 20 mg Ferrous Sulfate (Feosol) 325 mg PO DAILY [facility] Last Admin: 04/21/18 08:28 Dose: 325 mg Folic Acid (Folic Acid) 1 mg PO DAILY [facility] Last Admin: 04/21/18 08:28 Dose: 1 mg Furosemide (Lasix) 20 mg PO DAILY [facility] Last Admin: 04/21/18 08:28 Dose: 20 mg Cefepime HCl 1 gm/ Sodium (Chloride) 100 mls @ 100 mls/hr IVPB Q12 [facility]; Protocol Last Admin: 04/21/18 20:57 Dose: 100 mls/hr Lactated Ringer's (Lactated Ringer's) 1,000 mls @ 100 mls/hr IV .Q10H [facility] Last Admin: 04/21/18 22:26 Dose: 100 mls/hr Vancomycin HCl 750 mg/ Sodium (Chloride) 250 mls @ 166.667 mls/hr IVPB Q12 [facility]; Protocol Last Admin: 04/21/18 22:22 Dose: 166.667 mls/hr Meclizine HCl (Antivert) 25 mg PO Q12 [facility] Last Admin: 04/21/18 20:57 Dose: 25 mg Morphine Sulfate (Morphine) 4 mg IVP Q3 PRN PRN Reason: Pain, severe (8-10) Last Admin: 04/21/18 16:07 Dose: 4 mg Pregabalin (Lyrica) 75 mg PO Q8 [facility] Last Admin: 04/21/18 16:07 Dose: 75 mg - Labs Labs: 04/20/18 09:39 04/20/18 09:39 PT 14.8 Seconds (9.8-13.1) H 04/17/18 05:25 INR 1.3 04/17/18 05:25 - Head Exam Head Exam: ATRAUMATIC - Eye Exam Eye Exam: Normal appearance - ENT Exam ENT Exam: Mucous Membranes Dry - Respiratory Exam Respiratory Exam: NORMAL BREATHING PATTERN - Cardiovascular Exam Cardiovascular Exam: +S1, +S2 - GI/Abdominal Exam GI & Abdominal Exam: Normal Bowel Sounds Assessment and Plan (1) MTHFR mutation Status: Chronic (2) Leukocytosis Status: Acute (3) Anemia Status: Chronic
[2018-04-22] MEDS: Lactated Ringer's 1,000 ML IV SCH (04:00)
[2018-04-22 06:38] LABS: INR 1.1; PROTHROMBIN TIME 11.8 Seconds (9.8-13.1)
[2018-04-22 06:41] LABS: PARTIAL THROMBOPLASTIN TIME 29.8 Seconds (25.6-37.1)
[2018-04-22] MEDS: Cefepime 1 GM in Sodium Chloride 0.9% 100 ML IVPB SCH ×3 (09:30→23:25)
[2018-04-22 10:32] LABS: SQUAMOUS EPITHIAL 1 /hpf (0-5); URINE AMORPHOUS SEDIMENT RARE /ul (<OCC); URINE BILIRUBIN NEGATIVE (NEGATIVE); URINE BLOOD LARGE (NEGATIVE); URINE CLARITY SLIGHTY-CLOUDY (Clear); URINE COLOR YELLOW (YELLOW); URINE GLUCOSE (UA) NEG (Normal); URINE LEUKOCYTE ESTERASE NEG Leu/uL (Negative); URINE PROTEIN NEGATIVE (NEGATIVE); URINE UROBILINOGEN 0.2-1.0 mg/dL (0.2-1.0)
[2018-04-22 10:48] LABS: MEAN CELL VOLUME 93.1 fl (81.0-99.0); MEAN CORPUSCULAR HEMOGLOBIN 31.6 pg (27.0-31.0); RBC 3.8 Mil/uL (3.80-5.20); RED CELL DISTRIBUTION WIDTH 13.2 % (11.5-14.5); WHITE BLOOD COUNT 10.4 K/uL (4.8-10.8)
[2018-04-22 11:02] LABS: BLOOD UREA NITROGEN 10 mg/dl (7-17); CALCIUM 9.3 mg/dL (8.4-10.2); GFR NON-AFRICAN AMERICAN > 60
[2018-04-22] MEDS ORDERED: Midazolam 2 MG/2 ML VIAL ONE (11:52)
[2018-04-22] MEDS ORDERED: Propofol 10 mg/ml Inj (20 ML) ONE ×3 (11:52→14:29)
[2018-04-22] MEDS ORDERED: Bacitracin Ointment 30 GM TUBE ONE ×2 (12:08→14:23)
[2018-04-22] MEDS ORDERED: EPINEPHrine 1:1000 Nasal Sol(30mL) ONE (12:08)
[2018-04-22] MEDS ORDERED: Bupivacaine HCl 0.25% PF (30 ml) Inj ONE (12:16)
[2018-04-22] MEDS ORDERED: Lidocaine 2% MPF (5 ml) Inj ONE (12:16)
[2018-04-22] MEDS ORDERED: Morphine 1 mg/ml preservative-free Inj(Duramorph) ONE (12:48)
[2018-04-22] MEDS ORDERED: MethylPREDNISolone Depo 40 mg/ml Inj ONE (12:48)
[2018-04-22] MEDS ORDERED: methylPREDNISolone Depo 80 mg/ml Inj ONE (12:49)
[2018-04-22] MEDS ORDERED: Lactated Ringer's 1,000 ML IV ONE (13:30)
[2018-04-22] MEDS ORDERED: ePHEDrine 50 mg/ml Inj ONE (14:01)
--- NOTE | 2018-04-22 14:40 | PCM.SURG1 ---
Surgeon's Initial Post Op Note - Surgeon's Notes Surgeon: Shaylee [employer] Professor: DORY Nguyen/ 2nd assist Joaquim Worrell PA-c Anesthesia Administered By: Dr johan mahoney Pre-Operative Diagnosis: s/p septic R knee Operative Findings: tricompartmental synovitis. sepsis R knee Post-Operative Diagnosis: as above Operation Performed: surgical arthroscopy- partial tricoimnpatmental synovectomy. surgical arthroscopy incision and drainage/culturee and biopsy Specimen/Specimens Removed: synovium/adhesions Estimated Blood Loss: EBL {In ML}: 15 Blood Products Given: N/A Drains Used: No Drains Post-Op Condition: Fair Date of Surgery/Procedure: 04/22/18 Time of Surgery/Procedure: 14:15 (time in room anaesthesia induction time 1333/ end time 1435)
[2018-04-22] MEDS ORDERED: DiphenhydrAMINE 50 mg/ml Inj IVP PRN (14:47)
[2018-04-22] MEDS: HYDROmorphone 0.5 mg/0.5 ml ISec IVP PRN ×4 (14:57→15:50)
[2018-04-22 16:14] LABS: FLUID TYPE SYNOVIAL FLUID
[2018-04-22 17:15] LABS: SF GROSS APPEARANCE BLOODY (CLEAR); SYNOVIAL FLUID COMMENT BLOODY
[2018-04-22 17:17] LABS: SYNOVIAL FLUID MONO/MACROPHAGE 10 % (0-0)
[2018-04-22] MEDS: Enoxaparin 80 mg Syringe SC SCH (23:26)
--- NOTE | 2018-04-23 07:05 | CP.PCM.PN ---
Subjective - Date & Time of Evaluation Date of Evaluation: 04/23/18 Time of Evaluation: 07:05 - Subjective Subjective: Patient seen and examined at bedside. Pain is moderate, but just received pain medication. No new complaints. Denies CP/SOB/fever/dizziness. Objective - Vital Signs/Intake and Output Vital Signs (last 24 hours): Temp Pulse Resp BP Pulse Ox 98.6 F 94 H 20 109/64 96 04/23/18 03:22 04/23/18 03:22 04/23/18 03:22 04/23/18 03:22 04/23/18 03:22 - Medications Medications: Current Medications Acetaminophen (Tylenol 325mg Tab) 650 mg PO Q4 PRN PRN Reason: Fever 101 degrees fahrenheit Atorvastatin Calcium (Lipitor) 10 mg PO HS [facility] Last Admin: 04/22/18 21:37 Dose: 10 mg Clopidogrel Bisulfate (Plavix) 75 mg PO DAILY [facility] Last Admin: 04/20/18 09:00 Dose: 75 mg Docusate Sodium (Colace) 100 mg PO BID [facility] Last Admin: 04/22/18 17:46 Dose: 100 mg Enoxaparin Sodium (Lovenox) 70 mg SC Q12 [facility]; Protocol Last Admin: 04/22/18 23:26 Dose: 70 mg Famotidine (Pepcid) 20 mg PO Q12 [facility] Last Admin: 04/22/18 21:38 Dose: 20 mg Ferrous Sulfate (Feosol) 325 mg PO DAILY [facility] Last Admin: 04/22/18 08:43 Dose: Not Given Folic Acid (Folic Acid) 1 mg PO DAILY [facility] Last Admin: 04/22/18 08:43 Dose: Not Given Furosemide (Lasix) 20 mg PO DAILY [facility] Last Admin: 04/22/18 08:43 Dose: Not Given Cefepime HCl 1 gm/ Sodium (Chloride) 100 mls @ 100 mls/hr IVPB Q12 [facility]; Protocol Last Admin: 04/22/18 23:25 Dose: 100 mls/hr Lactated Ringer's (Lactated Ringer's) 1,000 mls @ 100 mls/hr IV .Q10H [facility] Last Admin: 04/22/18 04:00 Dose: Not Given Vancomycin HCl 750 mg/ Sodium (Chloride) 250 mls @ 166.667 mls/hr IVPB Q12 [facility]; Protocol Last Admin: 04/22/18 21:38 Dose: 166.667 mls/hr Meclizine HCl (Antivert) 25 mg PO Q12 [facility] Last Admin: 04/22/18 21:38 Dose: 25 mg Morphine Sulfate (Morphine) 4 mg IVP Q3 PRN PRN Reason: Pain, severe (8-10) Last Admin: 04/23/18 06:33 Dose: 4 mg Pregabalin (Lyrica) 75 mg PO Q8 [facility] Last Admin: 04/23/18 02:06 Dose: 75 mg - Labs Labs: 04/22/18 10:44 04/22/18 10:44 PT 11.8 Seconds (9.8-13.1) 04/22/18 05:30 INR 1.1 04/22/18 05:30 APTT 29.8 Seconds (25.6-37.1) 04/22/18 05:30 - Extremities Exam Additional comments: R knee: knee imm in place, Dressings CDI sensation intact SP/DP/TN motor intact EHL/FHL/TA/G pedal pulses intact comps soft NT b/l Assessment and Plan (1) Effusion of right knee Assessment & Plan: POD#1 s/p repeat R knee arthroscopic w/o -pain control -PT/OT FF 10% WB -maintain knee immobilizer -awaiting results of repeat OR cultures (neg x 24 hrs) -abx as per ID -discharge planning -orthopedically stable -above d/w Dr. June in agreement Status: Acute
[2018-04-23] MEDS: Enoxaparin 80 mg Syringe SC SCH ×2 (09:03→20:58)
[2018-04-23] MEDS: Cefepime 1 GM in Sodium Chloride 0.9% 100 ML IVPB SCH ×2 (09:06→20:44)
[2018-04-23 11:47] LABS: HEMOGLOBIN 11.4 g/dL (12.0-16.0); MEAN CORPUSCULAR HEMOGLOBIN 31.1 pg (27.0-31.0); MEAN CORPUSCULAR HGB CONC 33.4 g/dL (33.0-37.0); RBC 3.66 Mil/uL (3.80-5.20); WHITE BLOOD COUNT 10.2 K/uL (4.8-10.8)
[2018-04-23 12:01] LABS: BLOOD UREA NITROGEN 10 mg/dl (7-17); GFR NON-AFRICAN AMERICAN > 60
--- NOTE | 2018-04-23 17:19 | CP.PCM.PN ---
Subjective - Date & Time of Evaluation Date of Evaluation: 04/23/18 Time of Evaluation: 10:40 - Subjective Subjective: F/U S/P R Knee Arthroscopic and I&D. POD#1 Pt awake, R knee pain, s/p septic R knee. Objective - Vital Signs/Intake and Output Vital Signs (last 24 hours): Temp Pulse Resp BP Pulse Ox 98.9 F 78 18 109/70 95 04/23/18 16:16 04/23/18 16:16 04/23/18 16:16 04/23/18 16:16 04/23/18 16:16 - Medications Medications: Current Medications Acetaminophen (Tylenol 325mg Tab) 650 mg PO Q4 PRN PRN Reason: Fever 101 degrees fahrenheit Atorvastatin Calcium (Lipitor) 10 mg PO HS [facility] Last Admin: 04/22/18 21:37 Dose: 10 mg Clopidogrel Bisulfate (Plavix) 75 mg PO DAILY [facility] Last Admin: 04/23/18 09:08 Dose: 75 mg Docusate Sodium (Colace) 100 mg PO BID [facility] Last Admin: 04/23/18 16:57 Dose: 100 mg Enoxaparin Sodium (Lovenox) 70 mg SC Q12 [facility]; Protocol Last Admin: 04/23/18 09:03 Dose: 70 mg Famotidine (Pepcid) 20 mg PO Q12 [facility] Last Admin: 04/23/18 09:01 Dose: 20 mg Ferrous Sulfate (Feosol) 325 mg PO DAILY [facility] Last Admin: 04/23/18 09:02 Dose: 325 mg Folic Acid (Folic Acid) 1 mg PO DAILY [facility] Last Admin: 04/23/18 09:01 Dose: 1 mg Furosemide (Lasix) 20 mg PO DAILY [facility] Last Admin: 04/23/18 09:01 Dose: 20 mg Cefepime HCl 1 gm/ Sodium (Chloride) 100 mls @ 100 mls/hr IVPB Q12 [facility]; [facility] Last Admin: 04/23/18 09:06 Dose: 100 mls/hr Lactated Ringer's (Lactated Ringer's) 1,000 mls @ 100 mls/hr IV .Q10H [facility] Last Admin: 04/22/18 04:00 Dose: Not Given Vancomycin HCl 750 mg/ Sodium (Chloride) 250 mls @ 166.667 mls/hr IVPB Q12 [facility]; Protocol Last Admin: 04/23/18 09:04 Dose: 166.667 mls/hr Meclizine HCl (Antivert) 25 mg PO Q12 [facility] Last Admin: 04/23/18 09:01 Dose: 25 mg Morphine Sulfate (Morphine) 2 mg IVP Q4 PRN PRN Reason: Pain, severe (8-10) Last Admin: 04/23/18 17:03 Dose: 2 mg Pregabalin (Lyrica) 75 mg PO Q8 [facility] Last Admin: 04/23/18 16:56 Dose: 75 mg - Labs Labs: 04/23/18 11:37 04/23/18 11:37 PT 11.8 Seconds (9.8-13.1) 04/22/18 05:30 INR 1.1 04/22/18 05:30 APTT 29.8 Seconds (25.6-37.1) 04/22/18 05:30 - Constitutional Appears: No Acute Distress - Head Exam Head Exam: NORMAL INSPECTION - Eye Exam Eye Exam: PERRL - ENT Exam ENT Exam: Normal Exam - Neck Exam Neck Exam: Normal Inspection - Respiratory Exam Respiratory Exam: NORMAL BREATHING PATTERN - Cardiovascular Exam Cardiovascular Exam: REGULAR RHYTHM - GI/Abdominal Exam GI & Abdominal Exam: Soft, Normal Bowel Sounds - Extremities Exam Additional comments: R knee immobilized, ice pack in place. R uper arm PICC line. - Back Exam Back Exam: NORMAL INSPECTION - Neurological Exam Neurological Exam: Alert, CN II-XII Intact, Oriented x3 - Psychiatric Exam Psychiatric exam: Anxious - Skin Skin Exam: Warm Assessment and Plan (1) Septic arthritis of knee, right Status: Acute (2) S/P arthroscopic surgery of right knee Status: Acute (3) Effusion of right knee Status: Acute (4) History of CVA (cerebrovascular accident) Status: Chronic (5) Left subclavian vein thrombosis Status: Acute (6) MTHFR mutation Status: Chronic - Assessment and Plan (Free Text) Plan: Continue cefepime, Morphine, Lovenox, Plavix and rest of Tx.
--- NOTE | 2018-04-23 20:30 | CP.PCM.PN ---
Subjective - Date & Time of Evaluation Date of Evaluation: 04/22/18 Time of Evaluation: 18:00 - Subjective Subjective: Tolerated repeat OR no hemostasis issues Objective - Vital Signs/Intake and Output Vital Signs (last 24 hours): Temp Pulse Resp BP Pulse Ox 98.9 F 78 18 109/70 95 04/23/18 16:16 04/23/18 16:16 04/23/18 16:16 04/23/18 16:16 04/23/18 16:16 - Medications Medications: Current Medications Acetaminophen (Tylenol 325mg Tab) 650 mg PO Q4 PRN PRN Reason: Fever 101 degrees fahrenheit Atorvastatin Calcium (Lipitor) 10 mg PO HS [facility] Last Admin: 04/22/18 21:37 Dose: 10 mg Clopidogrel Bisulfate (Plavix) 75 mg PO DAILY [facility] Last Admin: 04/23/18 09:08 Dose: 75 mg Docusate Sodium (Colace) 100 mg PO BID [facility] Last Admin: 04/23/18 16:57 Dose: 100 mg Enoxaparin Sodium (Lovenox) 70 mg SC Q12 [facility]; Protocol Last Admin: 04/23/18 09:03 Dose: 70 mg Famotidine (Pepcid) 20 mg PO Q12 [facility] Last Admin: 04/23/18 09:01 Dose: 20 mg Ferrous Sulfate (Feosol) 325 mg PO DAILY [facility] Last Admin: 04/23/18 09:02 Dose: 325 mg Folic Acid (Folic Acid) 1 mg PO DAILY [facility] Last Admin: 04/23/18 09:01 Dose: 1 mg Furosemide (Lasix) 20 mg PO DAILY [facility] Last Admin: 04/23/18 09:01 Dose: 20 mg Cefepime HCl 1 gm/ Sodium (Chloride) 100 mls @ 100 mls/hr IVPB Q12 [facility]; Protocol Last Admin: 04/23/18 09:06 Dose: 100 mls/hr Lactated Ringer's (Lactated Ringer's) 1,000 mls @ 100 mls/hr IV .Q10H [facility] Last Admin: 04/22/18 04:00 Dose: Not Given Vancomycin HCl 750 mg/ Sodium (Chloride) 250 mls @ 166.667 mls/hr IVPB Q12 [facility]; Protocol Last Admin: 04/23/18 09:04 Dose: 166.667 mls/hr Meclizine HCl (Antivert) 25 mg PO Q12 [facility] Last Admin: 04/23/18 09:01 Dose: 25 mg Morphine Sulfate (Morphine) 2 mg IVP Q4 PRN PRN Reason: Pain, severe (8-10) Last Admin: 04/23/18 17:03 Dose: 2 mg Pregabalin (Lyrica) 75 mg PO Q8 [facility] Last Admin: 04/23/18 16:56 Dose: 75 mg - Labs Labs: 04/23/18 11:37 04/23/18 11:37 PT 11.8 Seconds (9.8-13.1) 04/22/18 05:30 INR 1.1 04/22/18 05:30 APTT 29.8 Seconds (25.6-37.1) 04/22/18 05:30 - Head Exam Head Exam: ATRAUMATIC - Eye Exam Eye Exam: Normal appearance - ENT Exam ENT Exam: Mucous Membranes Dry - Respiratory Exam Respiratory Exam: NORMAL BREATHING PATTERN - Cardiovascular Exam Cardiovascular Exam: +S1, +S2 - GI/Abdominal Exam GI & Abdominal Exam: Normal Bowel Sounds Assessment and Plan (1) MTHFR mutation Assessment & Plan: restart plavix and lovenox once cleared by orthopedics Status: Chronic (2) Leukocytosis Assessment & Plan: s/p orthopedic washout on antibiotics Status: Acute (3) Anemia Assessment & Plan: chronic disease prior iron deficiency Status: Chronic
--- NOTE | 2018-04-23 20:31 | CP.PCM.PN ---
Subjective - Date & Time of Evaluation Date of Evaluation: 04/23/18 Time of Evaluation: 20:00 - Subjective Subjective: No complaints. Objective - Vital Signs/Intake and Output Vital Signs (last 24 hours): Temp Pulse Resp BP Pulse Ox 98.9 F 78 18 109/70 95 04/23/18 16:16 04/23/18 16:16 04/23/18 16:16 04/23/18 16:16 04/23/18 16:16 - Medications Medications: Current Medications Acetaminophen (Tylenol 325mg Tab) 650 mg PO Q4 PRN PRN Reason: Fever 101 degrees fahrenheit Atorvastatin Calcium (Lipitor) 10 mg PO HS [facility] Last Admin: 04/22/18 21:37 Dose: 10 mg Clopidogrel Bisulfate (Plavix) 75 mg PO DAILY [facility] Last Admin: 04/23/18 09:08 Dose: 75 mg Docusate Sodium (Colace) 100 mg PO BID [facility] Last Admin: 04/23/18 16:57 Dose: 100 mg Enoxaparin Sodium (Lovenox) 70 mg SC Q12 [facility]; Protocol Last Admin: 04/23/18 09:03 Dose: 70 mg Famotidine (Pepcid) 20 mg PO Q12 [facility] Last Admin: 04/23/18 09:01 Dose: 20 mg Ferrous Sulfate (Feosol) 325 mg PO DAILY [facility] Last Admin: 04/23/18 09:02 Dose: 325 mg Folic Acid (Folic Acid) 1 mg PO DAILY [facility] Last Admin: 04/23/18 09:01 Dose: 1 mg Furosemide (Lasix) 20 mg PO DAILY [facility] Last Admin: 04/23/18 09:01 Dose: 20 mg Cefepime HCl 1 gm/ Sodium (Chloride) 100 mls @ 100 mls/hr IVPB Q12 [facility]; Protocol Last Admin: 04/23/18 09:06 Dose: 100 mls/hr Lactated Ringer's (Lactated Ringer's) 1,000 mls @ 100 mls/hr IV .Q10H [facility] Last Admin: 04/22/18 04:00 Dose: Not Given Vancomycin HCl 750 mg/ Sodium (Chloride) 250 mls @ 166.667 mls/hr IVPB Q12 [facility]; Protocol Last Admin: 04/23/18 09:04 Dose: 166.667 mls/hr Meclizine HCl (Antivert) 25 mg PO Q12 [facility] Last Admin: 04/23/18 09:01 Dose: 25 mg Morphine Sulfate (Morphine) 2 mg IVP Q4 PRN PRN Reason: Pain, severe (8-10) Last Admin: 04/23/18 17:03 Dose: 2 mg Pregabalin (Lyrica) 75 mg PO Q8 [facility] Last Admin: 04/23/18 16:56 Dose: 75 mg - Labs Labs: 04/23/18 11:37 04/23/18 11:37 PT 11.8 Seconds (9.8-13.1) 04/22/18 05:30 INR 1.1 04/22/18 05:30 APTT 29.8 Seconds (25.6-37.1) 04/22/18 05:30 - Head Exam Head Exam: ATRAUMATIC - Eye Exam Eye Exam: Normal appearance - ENT Exam ENT Exam: Mucous Membranes Dry - Respiratory Exam Respiratory Exam: NORMAL BREATHING PATTERN - Cardiovascular Exam Cardiovascular Exam: +S1, +S2 - GI/Abdominal Exam GI & Abdominal Exam: Normal Bowel Sounds Assessment and Plan (1) MTHFR mutation Assessment & Plan: on plavix and lovenox Status: Chronic (2) Leukocytosis Assessment & Plan: s/p orthopedic washout on antibiotics Status: Acute (3) Anemia Assessment & Plan: chronic disease iron deficiency anemia Status: Chronic
[2018-04-23] MEDS: Lactated Ringer's 1,000 ML IV SCH (21:05)
[2018-04-24] MEDS: Lactated Ringer's 1,000 ML IV SCH ×2 (03:01→16:24)
--- NOTE | 2018-04-24 07:53 | OP ---
PROCEDURE DATE: 04/22/2018 LOCATION: [facility]. PREOPERATIVE DIAGNOSIS: Status post right septic knee. POSTOPERATIVE DIAGNOSES: 1. Status post right septic knee. 2. Exuberant synovitis. OPERATIVE FINDINGS: 1. Tricompartmental synovitis. 2. Status post septic right knee. OPERATIONS PERFORMED: 1. Surgical arthroscopy, partial tricompartmental synovectomy. 2. Surgical arthroscopy, incision and drainage, culture and biopsy. 3. Application of Stanley Larry compression dressing and knee immobilizer. SURGEON: Juan Diego June MD AUTOMOTIVE SERVICE CASHIER: MIKA Buck, certified registered nursing insurance legal assistant. SECOND PILE DRIVER OPERATOR: Joaquim Worrell PA-C. ANESTHESIA ADMINISTERED BY: Dr. Shadi Escobar. SPECIMENS REMOVED: Synovium, adhesions. BLOOD LOSS: 15 mL. BLOOD PRODUCTS: No blood products given. DRAINS USED: None. POSTOPERATIVE CONDITION: Fair/stable. INCISION TIME: 14:15. TIME IN THE ROOM: 13:33, end time 14:35. OPERATIVE INDICATIONS: Nella Sheldon is a 47-year-old woman who had been admitted to the service of Dr. Lei Alejo through the emergency room as an emergency. Again, the patient was admitted through the emergency room as an emergency. I was consulted by Dr. Alejo and evaluated the patient. The patient had seen a prior orthopedist at [facility], who aspirated the knee. There was no information given to the patient. She was not started on antibiotics. The patient presents at this point in time with a full blown septic knee. The patient had undergone successful surgical arthroscopy and this was a repeat surgical arthroscopy, irrigation, debridement and partial synovectomy. The patient is being treated with IV antibiotics. Pros, cons, risks and benefits of the secondary procedure discussed at length with the patient. The possibility of later secondary open procedure or tertiary open procedure was discussed. The possibility of mechanical failure, infection, thromboembolic disease, secondary or tertiary surgery was discussed. OPERATIVE PROCEDURE: After having obtained informed consent from the patient, after having identified the side, site and procedure and a critical pause/time-out, right knee is the correct knee, after having identified side, site and procedure and a critical pause/time-out, after having obtained informed consent, the patient identified as Nella Sheldon was placed in the supine position with all bony prominences well padded. The tourniquet had been applied, but no tourniquet will be employed. After having obtained informed consent, after having obtained a repeat test, which was negative, after having identified side, site and procedure and a critical pause/time-out, after the satisfactory induction of the anesthetic, the right lower extremity was prepped and draped in usual fashion for lower extremity arthroscopic surgery. The tourniquet was not employed. The prior stitches were removed and the initial incisions medially and laterally were opened. At this point in time, the knee was insufflated with 10 mL of saline. The arthroscope was introduced and the diluent of fluid that is in the knee sent as irrigated, washed around the knee, it is aspirated and sent to the lab for stat Gram stain with number of white cells per high-power field, aerobic, anaerobic, AFB and fungal cultures. With the surgeon exerting a gentle valgus stress with the arthroscope anterolaterally, there was found to be again massive adhesions in the suprapatellar pouch and in the anterior compartment. The patient had undergone a successful medial and lateral meniscectomy, which was intact with the arthroscope anterolaterally and with the surgeon exerting a gentle valgus stress; with the arthroscope introduced anterolaterally, a careful partial tricompartmental synovectomy was accomplished with the 5.5 mm arthroscopic shaver [employer]. Careful synovectomy was accomplished both anteriorly in the anterior compartment and superiorly in the suprapatellar compartment having thoroughly performed a partial synovectomy and lysis of adhesions. It should be noted that initially on introduction of the arthroscopic cannula, incision and drainage was accomplished as well as irrigation and debridement. The synovium and the adhesions were sent for culture and biopsy. The fluid is sent for biopsy and culture as well, aerobic, anaerobic, AFB and fungal cultures. The wound was thoroughly irrigated with several liters of antibiotic impregnated solution. The wound was thoroughly irrigated. Closures in layers with interrupted Vicryl and nylon. Compression dressing, Stanley Larry compression dressing from toes to groin was applied with the application of knee immobilizer. Juan Diego June MD
[2018-04-24] MEDS: Enoxaparin 80 mg Syringe SC SCH ×2 (09:12→20:33)
[2018-04-24] MEDS: Cefepime 1 GM in Sodium Chloride 0.9% 100 ML IVPB SCH ×2 (09:12→20:33)
--- NOTE | 2018-04-24 12:04 | CP.PCM.PN ---
Subjective - Date & Time of Evaluation Date of Evaluation: 04/24/18 Time of Evaluation: 09:00 - Subjective Subjective: Patient seen and examined at bedside comfortable. Pain has significantly improved. No acute events overnight. Denies CP/SOB/dizziness/fever. Objective - Vital Signs/Intake and Output Vital Signs (last 24 hours): Temp Pulse Resp BP Pulse Ox 98.1 F 74 20 114/73 95 04/24/18 07:59 04/24/18 07:59 04/24/18 07:59 04/24/18 09:14 04/24/18 07:59 - Medications Medications: Current Medications Acetaminophen (Tylenol 325mg Tab) 650 mg PO Q4 PRN PRN Reason: Fever 101 degrees fahrenheit Atorvastatin Calcium (Lipitor) 10 mg PO HS [facility] Last Admin: 04/23/18 21:00 Dose: 10 mg Clopidogrel Bisulfate (Plavix) 75 mg PO DAILY [facility] Last Admin: 04/24/18 09:10 Dose: 75 mg Docusate Sodium (Colace) 100 mg PO BID [facility] Last Admin: 04/24/18 09:10 Dose: 100 mg Enoxaparin Sodium (Lovenox) 70 mg SC Q12 [facility]; Protocol Last Admin: 04/24/18 09:12 Dose: 70 mg Famotidine (Pepcid) 20 mg PO Q12 [facility] Last Admin: 04/24/18 09:10 Dose: 20 mg Ferrous Sulfate (Feosol) 325 mg PO DAILY [facility] Last Admin: 04/24/18 09:10 Dose: 325 mg Folic Acid (Folic Acid) 1 mg PO DAILY [facility] Last Admin: 04/24/18 09:11 Dose: 1 mg Furosemide (Lasix) 20 mg PO DAILY [facility] Last Admin: 04/24/18 09:14 Dose: 20 mg Cefepime HCl 1 gm/ Sodium (Chloride) 100 mls @ 100 mls/hr IVPB Q12 [facility]; Protocol Last Admin: 04/24/18 09:12 Dose: 100 mls/hr Lactated Ringer's (Lactated Ringer's) 1,000 mls @ 100 mls/hr IV .Q10H [facility] Last Admin: 04/24/18 03:01 Dose: 100 mls/hr Vancomycin HCl 750 mg/ Sodium (Chloride) 250 mls @ 166.667 mls/hr IVPB Q12 [facility]; Protocol Last Admin: 04/24/18 09:13 Dose: 166.667 mls/hr Meclizine HCl (Antivert) 25 mg PO Q12 [facility] Last Admin: 04/24/18 09:10 Dose: 25 mg Morphine Sulfate (Morphine) 2 mg IVP Q4 PRN PRN Reason: Pain, severe (8-10) Last Admin: 04/24/18 06:24 Dose: 2 mg Pregabalin (Lyrica) 75 mg PO Q8 [facility] Last Admin: 04/24/18 09:23 Dose: 75 mg - Labs Labs: 04/23/18 11:37 04/23/18 11:37 PT 11.8 Seconds (9.8-13.1) 04/22/18 05:30 INR 1.1 04/22/18 05:30 APTT 29.8 Seconds (25.6-37.1) 04/22/18 05:30 - Extremities Exam Additional comments: R knee: knee imm in place, Dressings CDI sensation intact SP/DP/TN motor intact EHL/FHL/TA/G pedal pulses intact comps soft NT b/l Assessment and Plan (1) Effusion of right knee Assessment & Plan: POD#2 s/p repeat R knee arthroscopic washout -dressings changed this AM -PT/OT FF 10% WB -maintain knee immobilizer -awaiting results of repeat OR cultures (neg x 48 hrs) -abx as per ID -orthopedically stable for discharge to home -above d/w Dr. June in agreement Status: Acute
--- NOTE | 2018-04-24 18:47 | CP.PCM.PN ---
Subjective - Date & Time of Evaluation Date of Evaluation: 04/23/18 - Subjective Subjective: S/P R Knee Arthroscopic, I&D Objective - Vital Signs/Intake and Output Vital Signs (last 24 hours): Temp Pulse Resp BP Pulse Ox 98.4 F 81 18 106/68 94 L 04/24/18 15:57 04/24/18 15:57 04/24/18 15:57 04/24/18 15:57 04/24/18 15:57 - Medications Medications: Current Medications Acetaminophen (Tylenol 325mg Tab) 650 mg PO Q4 PRN PRN Reason: Fever 101 degrees fahrenheit Atorvastatin Calcium (Lipitor) 10 mg PO HS [facility] Last Admin: 04/23/18 21:00 Dose: 10 mg Clopidogrel Bisulfate (Plavix) 75 mg PO DAILY [facility] Last Admin: 04/24/18 09:10 Dose: 75 mg Docusate Sodium (Colace) 100 mg PO BID [facility] Last Admin: 04/24/18 16:21 Dose: 100 mg Enoxaparin Sodium (Lovenox) 70 mg SC Q12 [facility]; Protocol Last Admin: 04/24/18 09:12 Dose: 70 mg Famotidine (Pepcid) 20 mg PO Q12 [facility] Last Admin: 04/24/18 09:10 Dose: 20 mg Ferrous Sulfate (Feosol) 325 mg PO DAILY [facility] Last Admin: 04/24/18 09:10 Dose: 325 mg Folic Acid (Folic Acid) 1 mg PO DAILY [facility] Last Admin: 04/24/18 09:11 Dose: 1 mg Furosemide (Lasix) 20 mg PO DAILY [facility] Last Admin: 04/24/18 09:14 Dose: 20 mg Cefepime HCl 1 gm/ Sodium (Chloride) 100 mls @ 100 mls/hr IVPB Q12 [facility]; Protocol Last Admin: 04/24/18 09:12 Dose: 100 mls/hr Lactated Ringer's (Lactated Ringer's) 1,000 mls @ 100 mls/hr IV .Q10H [facility] Last Admin: 04/24/18 16:24 Dose: Not Given Vancomycin HCl 750 mg/ Sodium (Chloride) 250 mls @ 166.667 mls/hr IVPB Q12 [facility]; Protocol Last Admin: 04/24/18 09:13 Dose: 166.667 mls/hr Meclizine HCl (Antivert) 25 mg PO Q12 [facility] Last Admin: 04/24/18 09:10 Dose: 25 mg Morphine Sulfate (Morphine) 2 mg IVP Q4 PRN PRN Reason: Pain, severe (8-10) Last Admin: 04/24/18 12:35 Dose: 2 mg Pregabalin (Lyrica) 75 mg PO Q8 [facility] Last Admin: 04/24/18 16:21 Dose: 75 mg - Labs Labs: 04/23/18 11:37 04/23/18 11:37 PT 11.8 Seconds (9.8-13.1) 04/22/18 05:30 INR 1.1 04/22/18 05:30 APTT 29.8 Seconds (25.6-37.1) 04/22/18 05:30 - Constitutional Appears: No Acute Distress - Head Exam Head Exam: NORMAL INSPECTION - Eye Exam Eye Exam: PERRL - ENT Exam ENT Exam: Normal Exam - Neck Exam Neck Exam: Normal Inspection - Respiratory Exam Respiratory Exam: NORMAL BREATHING PATTERN - Cardiovascular Exam Cardiovascular Exam: REGULAR RHYTHM - GI/Abdominal Exam GI & Abdominal Exam: Soft, Normal Bowel Sounds - Extremities Exam Additional comments: R knee dressing in place. - Back Exam Back Exam: NORMAL INSPECTION - Neurological Exam Neurological Exam: Alert, CN II-XII Intact, Oriented x3 - Psychiatric Exam Psychiatric exam: Anxious - Skin Skin Exam: Warm Assessment and Plan (1) Septic arthritis of knee, right Status: Acute (2) S/P arthroscopic surgery of right knee Status: Acute (3) Effusion of right knee Status: Acute (4) History of CVA (cerebrovascular accident) Status: Chronic (5) Left subclavian vein thrombosis Status: Acute (6) MTHFR mutation Status: Chronic
[2018-04-25 00:22] VITALS: RESP 20
[2018-04-25 07:54] VITALS: BP 110/72; PULSE 74; TEMP 98.2; O2SAT 99
--- NOTE | 2018-04-25 09:12 | CP.PCM.PN ---
Subjective - Date & Time of Evaluation Date of Evaluation: 04/25/18 Time of Evaluation: 08:00 - Subjective Subjective: Patient seen and examined at bedside comfortable. Pain is well controlled. No new complaints. Objective - Vital Signs/Intake and Output Vital Signs (last 24 hours): Temp Pulse Resp BP Pulse Ox 98.2 F 74 20 110/72 99 04/25/18 07:52 04/25/18 07:52 04/25/18 07:52 04/25/18 07:52 04/25/18 07:52 - Medications Medications: Current Medications Acetaminophen (Tylenol 325mg Tab) 650 mg PO Q4 PRN PRN Reason: Fever 101 degrees fahrenheit Atorvastatin Calcium (Lipitor) 10 mg PO HS [facility] Last Admin: 04/24/18 21:46 Dose: 10 mg Clopidogrel Bisulfate (Plavix) 75 mg PO DAILY [facility] Last Admin: 04/24/18 09:10 Dose: 75 mg Docusate Sodium (Colace) 100 mg PO BID [facility] Last Admin: 04/24/18 16:21 Dose: 100 mg Enoxaparin Sodium (Lovenox) 70 mg SC Q12 [facility]; Protocol Last Admin: 04/24/18 20:33 Dose: 70 mg Famotidine (Pepcid) 20 mg PO Q12 [facility] Last Admin: 04/24/18 20:33 Dose: 20 mg Ferrous Sulfate (Feosol) 325 mg PO DAILY [facility] Last Admin: 04/24/18 09:10 Dose: 325 mg Folic Acid (Folic Acid) 1 mg PO DAILY [facility] Last Admin: 04/24/18 09:11 Dose: 1 mg Furosemide (Lasix) 20 mg PO DAILY [facility] Last Admin: 04/24/18 09:14 Dose: 20 mg Cefepime HCl 1 gm/ Sodium (Chloride) 100 mls @ 100 mls/hr IVPB Q12 [facility]; Protocol Last Admin: 04/24/18 20:33 Dose: 100 mls/hr Lactated Ringer's (Lactated Ringer's) 1,000 mls @ 100 mls/hr IV .Q10H [facility] Last Admin: 04/24/18 16:24 Dose: Not Given Vancomycin HCl 750 mg/ Sodium (Chloride) 250 mls @ 166.667 mls/hr IVPB Q12 [facility]; Protocol Last Admin: 04/24/18 21:47 Dose: 166.667 mls/hr Meclizine HCl (Antivert) 25 mg PO Q12 [facility] Last Admin: 04/24/18 20:33 Dose: 25 mg Morphine Sulfate (Morphine) 2 mg IVP Q4 PRN PRN Reason: Pain, severe (8-10) Last Admin: 04/25/18 01:03 Dose: 2 mg Pregabalin (Lyrica) 75 mg PO Q8 [facility] Last Admin: 04/25/18 01:00 Dose: 75 mg - Labs Labs: 04/23/18 11:37 04/23/18 11:37 PT 11.8 Seconds (9.8-13.1) 04/22/18 05:30 INR 1.1 04/22/18 05:30 APTT 29.8 Seconds (25.6-37.1) 04/22/18 05:30 - Extremities Exam Additional comments: R knee: knee imm in place, Dressings CDI sensation intact SP/DP/TN motor intact EHL/FHL/TA/G pedal pulses intact comps soft NT b/l Assessment and Plan (1) Effusion of right knee Assessment & Plan: POD#3 s/p repeat R knee arthroscopic washout -PT/OT FF 10% WB -maintain knee immobilizer -abx as per ID -orthopedically stable for discharge to home today -above d/w Dr. June in agreement Status: Acute
[2018-04-25] MEDS: Cefepime 1 GM in Sodium Chloride 0.9% 100 ML IVPB SCH (09:40)
[2018-04-25] MEDS: Enoxaparin 80 mg Syringe SC SCH (09:42)
--- NOTE | 2018-04-25 11:53 | CP.PCM.PCO ---
Assessment/Plan - Assessment/Plan Assessment (Free Text): Pt stable, repeat wound cultures negative. Discussed with Dr. Rodriguez, pt to complete 5 more weeks of Vancomycin. Rx given for home infusions. Pt to resume Plavix and Pradaxa at home. Pt cleared by ortho and by Dr. Alejo for d/c home. Pt and RN aware of plan
--- NOTE | 2018-04-25 13:53 | CP.PCM.DIS ---
Provider - Provider Date of Admission: 04/16/18 12:07 Attending physician: Lei Alejo MD Diagnosis - Discharge Diagnosis (1) Septic arthritis of knee, right Status: Acute (2) S/P arthroscopic surgery of right knee Status: Acute (3) Effusion of right knee Status: Acute (4) History of CVA (cerebrovascular accident) Status: Chronic (5) Left subclavian vein thrombosis Status: Acute (6) MTHFR mutation Status: Chronic Hospital Course - Lab Results Lab Results: Micro Results 04/22/18 14:27 Synovial Fluid Gram Stain - Final 04/22/18 14:27 Synovial Fluid Body Fluid Culture - Preliminary NO GROWTH AFTER 2 DAYS 04/22/18 15:30 Knee - Right Gram Stain - Final 04/22/18 15:30 Knee - Right Wound Culture - Final No growth. 04/22/18 15:30 Knee - Right Gram Stain - Final 04/22/18 15:30 Knee - Right Wound Culture - Final No growth. 04/22/18 15:30 Knee - Right Gram Stain - Final 04/22/18 15:30 Knee - Right Wound Culture - Final No growth. 04/22/18 15:30 Knee - Right Gram Stain - Final 04/22/18 15:30 Knee - Right Wound Culture - Final No growth. 04/22/18 15:30 Knee - Right Gram Stain - Final 04/22/18 15:30 Knee - Right Wound Culture - Final No growth. 04/22/18 15:30 Knee - Right Gram Stain - Final 04/22/18 15:30 Knee - Right Wound Culture - Final No growth. 04/22/18 15:30 Knee - Right Gram Stain - Final 04/22/18 15:30 Knee - Right Wound Culture - Final No growth. 04/22/18 15:30 Knee - Right Gram Stain - Final 04/22/18 15:30 Knee - Right Anaerobic Culture - Final NO ANAEROBES ISOLATED. 04/22/18 15:30 Knee - Right Wound Culture - Final No growth. 04/22/18 16:00 Other: Please Indicate Mycobacterial Culture - Preliminary 04/18/18 06:05 Blood Blood Culture - Final NO GROWTH AFTER 5 DAYS 04/18/18 06:05 Blood Gram Stain - Final TEST NOT PERFORMED 04/16/18 13:30 Blood-Venous Blood Culture - Final NO GROWTH AFTER 5 DAYS 04/16/18 13:30 Blood-Venous Gram Stain - Final TEST NOT PERFORMED 04/16/18 13:15 Blood-Venous Blood Culture - Final NO GROWTH AFTER 5 DAYS 04/16/18 13:15 Blood-Venous Gram Stain - Final TEST NOT PERFORMED 04/18/18 12:09 Knee - Right Gram Stain - Final 04/18/18 12:09 Knee - Right Wound Culture - Final Staphylococcus Aureus 04/18/18 12:09 Knee - Right Gram Stain - Final 04/18/18 12:09 Knee - Right Wound Culture - Final Staphylococcus Aureus 04/18/18 12:09 Knee - Right Gram Stain - Final 04/18/18 12:09 Knee - Right Wound Culture - Final Staphylococcus Aureus 04/18/18 12:09 Knee - Right Gram Stain - Final 04/18/18 12:09 Knee - Right Wound Culture - Final Staphylococcus Aureus 04/18/18 12:09 Knee - Right Gram Stain - Final 04/18/18 12:09 Knee - Right Wound Culture - Final Staphylococcus Aureus 04/18/18 12:09 Knee - Right Gram Stain - Final 04/18/18 12:09 Knee - Right Wound Culture - Final Staphylococcus Aureus 04/18/18 12:09 Knee - Right Gram Stain - Final 04/18/18 12:09 Knee - Right Wound Culture - Final Staphylococcus Aureus 04/18/18 12:09 Knee - Right Gram Stain - Final 04/18/18 12:09 Knee - Right Anaerobic Culture - Final NO ANAEROBES ISOLATED. 04/18/18 12:09 Knee - Right Wound Culture - Final Staphylococcus Aureus 04/18/18 09:17 Body Fluid - Knee-Right Gram Stain - Final 04/18/18 09:17 Body Fluid - Knee-Right Anaerobic Culture - Final NO ANAEROBES ISOLATED. 04/18/18 09:17 Body Fluid - Knee-Right Body Fluid Culture - Final Staphylococcus Aureus 04/18/18 09:30 Other: Please Indicate Mycobacterial Culture - Preliminary 04/18/18 09:30 Knee Right Fungal Culture - Preliminary Most Recent Lab Values WBC 10.2 K/uL (4.8-10.8) 04/23/18 11:37 RBC 3.66 Mil/uL (3.80-5.20) L 04/23/18 11:37 Hgb 11.4 g/dL (12.0-16.0) L 04/23/18 11:37 Hct 34.0 % (34.0-47.0) 04/23/18 11:37 MCV 93.0 fl (81.0-99.0) 04/23/18 11:37 MCH 31.1 pg (27.0-31.0) H 04/23/18 11:37 MCHC 33.4 g/dL (33.0-37.0) 04/23/18 11:37 RDW 13.0 % (11.5-14.5) 04/23/18 11:37 Plt Count 432 K/uL (130-400) H 04/23/18 11:37 MPV 7.5 fl (7.2-11.7) 04/17/18 05:25 Neut % (Auto) 71.7 % (50.0-75.0) 04/17/18 05:25 Lymph % (Auto) 14.1 % (20.0-40.0) L 04/17/18 05:25 [place] % (Auto) 12.5 % (0.0-10.0) H 04/17/18 05:25 Eos % (Auto) 1.5 % (0.0-4.0) 04/17/18 05:25 Baso % (Auto) 0.2 % (0.0-2.0) 04/17/18 05:25 Neut # (Auto) 8.4 K/uL (1.8-7.0) H 04/17/18 05:25 Lymph # (Auto) 1.7 K/uL (1.0-4.3) 04/17/18 05:25 [place] # (Auto) 1.5 K/uL (0.0-0.8) H 04/17/18 05:25 Eos # (Auto) 0.2 K/uL (0.0-0.7) 04/17/18 05:25 Baso # (Auto) 0.0 K/uL (0.0-0.2) 04/17/18 05:25 Neutrophils % (Manual) 84 % (42-75) H 04/16/18 10:35 Band Neutrophils % 3 % (0-2) H 04/16/18 10:35 Lymphocytes % (Manual) 7 % (20-50) L 04/16/18 10:35 Monocytes % (Manual) 6 % (0-10) 04/16/18 10:35 Platelet Estimate Normal (NORMAL) 04/16/18 10:35 Poikilocytosis (manual Slight 04/16/18 10:35 Anisocytosis (manual) Slight 04/16/18 10:35 [place] Cells Slight 04/16/18 10:35 ESR 93 mm/hr (0-20) H 04/17/18 05:25 PT 11.8 Seconds (9.8-13.1) 04/22/18 05:30 INR 1.1 04/22/18 05:30 APTT 29.8 Seconds (25.6-37.1) 04/22/18 05:30 pO2 30 mm/Hg (30-55) 04/16/18 13:18 VBG pH 7.32 (7.32-7.43) 04/16/18 13:18 VBG pCO2 55 mmHg (40-60) 04/16/18 13:18 VBG HCO3 24.0 mmol/L 04/16/18 13:18 VBG Total CO2 30.0 mmol/L (22-28) H 04/16/18 13:18 VBG O2 Sat (Calc) 52.4 % (40-65) 04/16/18 13:18 VBG Base Excess 0.8 mmol/L (0.0-2.0) 04/16/18 13:18 VBG Potassium 4.6 mmol/L (3.6-5.2) 04/16/18 13:18 Sodium 141.0 mmol/L (132-148) 04/16/18 13:18 Chloride 100.0 mmol/L (98-107) 04/16/18 13:18 Glucose 96 mg/dL (65-105) 04/16/18 13:18 Lactate 1.2 mmol/L (0.7-2.1) 04/16/18 13:18 FiO2 21.0 % 04/16/18 13:18 Sodium 140 mmol/l (132-148) 04/23/18 11:37 Potassium 4.3 MMOL/L (3.6-5.0) 04/23/18 11:37 Chloride 101 mmol/L (98-107) 04/23/18 11:37 Carbon Dioxide 32 mmol/L (22-30) H 04/23/18 11:37 Anion Gap 11 (10-20) 04/23/18 11:37 BUN 10 mg/dl (7-17) 04/23/18 11:37 Creatinine 0.7 mg/dl (0.7-1.2) 04/23/18 11:37 Est GFR ( Amer) > 60 04/23/18 11:37 Est GFR (Non-Af Amer) > 60 04/23/18 11:37 Random Glucose 104 mg/dL (65-105) 04/23/18 11:37 Uric Acid 3.0 mg/Dl (2.2-7.5) 04/17/18 05:25 Calcium 9.0 mg/dL (8.4-10.2) 04/23/18 11:37 Total Bilirubin 0.6 mg/dl (0.2-1.3) 04/17/18 05:25 AST 26 U/L (14-36) 04/17/18 05:25 ALT 30 U/L (9-52) 04/17/18 05:25 Alkaline Phosphatase 83 U/L (38-126) 04/17/18 05:25 Total Protein 6.8 G/DL (6.3-8.2) 04/17/18 05:25 Albumin 3.4 g/dL (3.5-5.0) L 04/17/18 05:25 Globulin 3.4 gm/dL (2.2-3.9) 04/17/18 05:25 Albumin/Globulin Ratio 1.0 (1.0-2.1) 04/17/18 05:25 Triglycerides 77 mg/DL (0-149) D 04/17/18 05:25 Cholesterol 116 mg/dL (0-199) 04/17/18 05:25 LDL Cholesterol Direct 74 mg/dL (0-129) 04/17/18 05:25 HDL Cholesterol 22 MG/DL (30-70) L 04/17/18 05:25 Thyroxine (T4) 9.59 ug/dl (5.5-11.0) 04/17/18 05:25 TSH 3rd Generation 4.19 mIU/ML (0.46-4.68) 04/17/18 05:25 Beta HCG, Quant < 2.39 mIU/mL 04/22/18 12:50 Venous Blood Potassium 4.6 mmol/L (3.6-5.2) 04/16/18 13:18 Urine Color Yellow (YELLOW) 04/22/18 10: Urine Clarity Slighty-cloudy (Clear) 04/22/18 10: Urine pH 7.0 (5.0-8.0) 04/22/18 10:22 Ur Specific [place] 1.013 (1.003-1.030) 04/22/18 10: Urine Protein Negative mg/dL (NEGATIVE) 04/22/18 10: Urine Glucose (UA) Neg mg/dL (Normal) 04/22/18 10: Urine Ketones Negative mg/dL (NEGATIVE) 04/22/18 10: Urine Blood Large (NEGATIVE) 04/22/18 10: Urine Nitrate Negative (NEGATIVE) 04/22/18 10: Urine Bilirubin Negative (NEGATIVE) 04/22/18 10: Urine Urobilinogen 0.2-1.0 mg/dL (0.2-1.0) 04/22/18 10:22 Ur Leukocyte Esterase Neg [place]/uL (Negative) 04/22/18 10:22 Urine RBC (Auto) 554 /hpf (0-3) H 04/22/18 10:22 Ur Squamous Epith Cells 1 /hpf (0-5) 04/22/18 10: Amorphous Sediment Rare /ul (<OCC) H 04/22/18 10: Urine HCG, Qual Positive (NEGATIVE) 04/22/18 11:58 Fluid Type Synovial fluid 04/22/18 16:00 Synovial WBC 361.0 /mm3 (0.0-150.0) H 04/22/18 16:00 Synovial RBC 79322.0 /mm3 (0.0-0.0) H 04/22/18 16:00 Synovial Neutrophils 85.0 % (0-0) H 04/22/18 16:00 Synovial Lymphocytes 15.0 % (0-0) H 04/22/18 16:00 Synov Monos/Macrophage 10 % (0-0) H 04/22/18 16:00 Synovial Uric Acid 1.5 mg/dL (<6.0) 04/18/18 09:30 Synovial Fluid Comment Bloody 04/22/18 16:00 Vancomycin Trough 12.5 ug/mL (5.0-10.0) H 04/20/18 20:00 Rheumatoid Factor IgG 6 U (<=6) 04/17/18 05:25 Rheumatoid Factor IgA <5 U (<=6) 04/17/18 05:25 Rheumatoid Factor IgM <5 U (<=6) 04/17/18 05:25 [place] 6 Profile Negative (NEGATIVE) 04/17/18 05:25 [place] Nuclear Membr Pat Negative (Negative) 04/17/18 05:25 Double Strand DNA Ab 1 IU/mL 04/17/18 05:25 Blood Type A POSITIVE 04/17/18 10:47 Antibody Screen Negative 04/17/18 10:47 BBK History Checked Patient has bt 04/17/18 10:47 Discharge Exam - Head Exam Head Exam: NORMAL INSPECTION Discharge Plan - Discharge Medications Prescriptions: Vancomycin 750mg [Vancomycin 750 mg in NS] 750 mg IVPB DAILY 35 Days bag - Follow Up Plan Condition: FAIR Disposition: HOME/ ROUTINE Instructions: Peripherally-Inserted Central Catheter (DC), Knee Arthroscopy (DC) Additional Instructions: follow up with primary MD and dr conway in 1 week follow up with Dr. Blue after completion of antibiotic. [facility] [phone] Referrals: Chacho Blue MD [Staff Provider] - Juan Diego Conway III, MD [Staff Provider] - Darwin Rodriguez MD [Medical Doctor] -
--- NOTE | 2018-04-26 13:51 | PQF ---
PROVIDER RESPONSE TEXT: Hx of L SVC thrombosis, not acute REVIEWER QUERY TEXT: Documentation Clarification Your help is requested in clarifying the following clinical documentation, if you can please further specify in the medical record and discharge summary. Please clarify if you are treating an acute L subclavian vein thrombosis or is this a previous histor y of thrombosis. The patient's Clinical Indicators include: PMH: of CVA, + MTHFR mutation on antiplatelet and therapeutic anticoagulation as per Heme consult Query created by: Rosalva Aleman on 04/22/2018 1:28 PM Electronically signed by: Lei Alejo MD 04/26/2018 1:48 PM
== END 2018-04-25 14:02 | disposition home or self-care (01) | DRG 486 ==
LOC: H.ER 08:38 → H.ERHOLD 12:07 → H.MEDSURG1 15:40
PROVIDERS: ADMIT Internal Medicine Pulmonary Disease; ATTEND Internal Medicine Pulmonary Disease
PROC: 0SBC4ZZ Excision of Right Knee Joint, Percutaneous Endoscopic Approach (ICD-10-PCS; 2018-04-18)
PROC: 0SBC4ZZ Excision of Right Knee Joint, Percutaneous Endoscopic Approach (ICD-10-PCS; 2018-04-18)
PROC: 0SBC4ZZ Excision of Right Knee Joint, Percutaneous Endoscopic Approach (ICD-10-PCS; 2018-04-18)
PROC: 0S9C4ZZ Drainage of Right Knee Joint, Percutaneous Endoscopic Approach (ICD-10-PCS; principal; 2018-04-18 07:45)
PROC: 0SBC4ZZ Excision of Right Knee Joint, Percutaneous Endoscopic Approach (ICD-10-PCS; 2018-04-22)
PROC: 0S9C4ZX Drainage of Right Knee Joint, Percutaneous Endoscopic Approach, Diagnostic (ICD-10-PCS; 2018-04-22)
DX: M00.061 Staphylococcal arthritis, right knee (principal); E72.12 Methylenetetrahydrofolate reductase deficiency; M25.461 Effusion, right knee; S83.241A Other tear of medial meniscus, current injury, right knee, initial encounter; S83.281A Other tear of lateral meniscus, current injury, right knee, initial encounter; M65.9 Synovitis and tenosynovitis, unspecified; D50.9 Iron deficiency anemia, unspecified; D63.8 Anemia in other chronic diseases classified elsewhere; B95.61 Methicillin susceptible Staphylococcus aureus infection as the cause of diseases classified elsewhere; Z86.73 Personal history of transient ischemic attack (TIA), and cerebral infarction without residual deficits; Z86.718 Personal history of other venous thrombosis and embolism; G43.909 Migraine, unspecified, not intractable, without status migrainosus; F41.9 Anxiety disorder, unspecified
CPT/HCPCS: C9399